=== PATIENT | female | born 1955 | race Caucasian/White ===

== ENCOUNTER → 2019-02-17 00:01 | Outpatient (RCR) | payer MEDICARE, SELFPAY | LOC: ONCRAD 02-03 07:40 | PROVIDERS: Family Provider Nurse Practitioner Family; Visit Provider Internal Medicine Hematology & Oncology | DX: Z51.12 Encounter for antineoplastic immunotherapy (principal); Z51.11 Encounter for antineoplastic chemotherapy; Z79.899 Other long term (current) drug therapy; C79.51 Secondary malignant neoplasm of bone; C78.01 Secondary malignant neoplasm of right lung; C50.512 Malignant neoplasm of lower-outer quadrant of left female breast; C78.02 Secondary malignant neoplasm of left lung; C78.7 Secondary malignant neoplasm of liver and intrahepatic bile duct; Z17.0 Estrogen receptor positive status [ER+]; Z90.13 Acquired absence of bilateral breasts and nipples; Z85.3 Personal history of malignant neoplasm of breast; Z92.3 Personal history of irradiation; Z92.23 Personal history of estrogen therapy | CPT/HCPCS: 36415; 80053 ×2; 85025 ×2; 96367 ×2; 96372; 96413 ×2; 96417 ×2; 99214 ×2; J0897; J1100 ×2; J1642 ×2; J2469 ×2; J7040 ×2; J7050 ×4; J9045 ×2; J9201 ×4; J9355 ×2 ==

== ENCOUNTER 2019-03-17 05:45 | Outpatient (RCR) | payer MEDICARE, SELFPAY ==
[2019-03-02 15:50] LABS: Basophils % 0.3 %; Eosinophils # 0.2 10^3/uL (0.0-0.8); Hematocrit 34.2 % (37.0-47.0); Hemoglobin 10.6 g/dL (11.5-15.3); Lymphocytes # 1.7 10^3/uL (0.8-4.8); Mean Corpuscular Hemoglobin 33.1 pg (28.0-34.0); Mean Corpuscular Volume 106.9 fL (81-99); Mean Platelet Volume 11.6 fL (7.4-10.4); Monocytes # 0.9 10^3/uL (0.2-0.9); Monocytes % 14.3 %; Neutrophils # 3.3 10^3/uL (1.8-7.7); Neutrophils % 54.1 %; Nucleated Red Blood Cells % 0 %; Platelet Count 153 10^3/cmm (130-400); Red Cell Distribution Width 16.2 % (12.1-15.1); White Blood Count 6.1 10^3/uL (4.0-10.0)
[2019-03-02 16:18] LABS: Alanine Aminotransferase 37 U/L (0-33); Albumin Level 4.4 g/dL (3.5-5.2); Alkaline Phosphatase 227 IU/L (35-105); Aspartate Amino Transferase 37 U/L (0-32); Blood Urea Nitrogen 9 mg/dL (8-23); Carbon Dioxide 26 mmol/L (22-29); Chloride 102 mmol/L (98-107); Globulin 2.8 g/dL (1.3-4.6); Glomerular Filtration Rate 84.8 mL/min (90-130); Sodium 141 mmol/L (136-145); Total Bilirubin 0.3 mg/dL (0.15-1.2); Total Protein 7.2 g/dL (6.6-8.7)
[2019-03-02 16:22] LABS: Calcium 10.3 mg/Dl (8.8-10.2)
[2019-03-02 16:25] LABS: Glucose 37 mg/dL (74-106)
[2019-03-03] MEDS: diphenhydrAMINE 25 mg Capsule PO (11:48)
[2019-03-03] MEDS: acetaminophen 325 mg Tablet 650 MG PO (11:48)
[2019-03-03] MEDS: sodium chloride 0.9% 250 ML IV (12:21)
[2019-03-03 13:32] LABS: Free T4 Free Thyroxine 1.02 ng/dL (0.82-1.77)
[2019-03-03 14:12] LABS: 25 Hydroxy Vitamin D 28 ng/mL (30-100)
--- NOTE | 2019-03-06 11:33 | ONC FU_ITS ---
Kerri Wolfe Patient Note Patient: Soledad Santamaria Unit #: [id number]: 1955 Dictated By: Liliana BernsteinDate of Visit: Mar 03, 2019 Onc MED Follow-Up/Prog Note Chief Complaint: Metastatic breast cancer History of Present Illness: Mrs. Santamaria is a 63-year-old female with history of left breast carcinoma with bone metastasis. She presented with an abnormal mammogram in 2010. She had apparently had detected an left-sided breast mass in late 2009. She was referred to Dr Gadiel Reed @ [facility] in [place], [place]. In April 2010, she underwent needle core biopsy of the left breast that did confirm invasive ductal carcinoma histological grade 2/3, ER+ KS+ and Her 2 [place] immunostain was 3+. She also had biopsy of a left axillary lymph node that was positive for invasive carcinoma with no lymphoid tissue identified. Her exam prior to chemo revealed a 3 cm mass in the extreme upper outer aspect of the left breast and multiple palpable enlarged lymph nodes-the largest was 2 cm and mobile.. Further workup included a breast MRI which did show biopsy proven malignancy in the left upper outer quadrant measuring 3.3 cm with associated axillary and subpectoral adenopathy. She had multiple satellite nodes with the largest measuring 7 cm. She did undergo MRI guided biopsy on June 08, 2010, which did report invasive cancer. She did have CT of the chest and a bone scan which did not show distant disease,. However, there was an enlarged lymph node in the subcutaneous tissues posterior to the left scapula and was biopsied on May 26, 2010 and was negative for malignancy. She under went neoadjuvant chemotherapy with weekly paclitaxel and Herceptin for 12 cycles from May 2010 to August of 2010 followed by FEC and Herceptin through October 2010. She completed 1 year of Herceptin in May 2011 during which time she was also taking an AI. She did have febrile neutropenia requiring admission in September 2010. She underwent bilateral mastectomies( for abnormal mammogram findings in the right breast) at [facility] in [facility] in November 2010. She did have post mastectomy radiation completed on 03/21/2011. She then underwent reconstruction with bilateral breast implants. Unfortunately in November 2011, the left implant became infected and had to be removed. During work up of the implant abnormality she has found to have a metastatic lesion in her left scapula. She did not have any problems until November of 2012 at which time she was having generalized bone pain, which she thought was a combination of Actonel and Anastrozole. The pain did not improve with stopping these medications. She was transitioned to single agent Tamoxifen. A bone scan revealed increased activity along the lateral margin of the left scapula suspicious of osseous metastatic disease when compared to the bone scan from November 2011. This lesion was biopsied on 12/01/2012 and revealed metastatic disease consistent with the breast primary. She did not have radiation at that time as she was not having significant pain. Mrs Santamaria was restaged and found to have diffuse pulmonary nodules and mediastinal lymphadenopathy and in November 2012, she was enrolled in a clinical trial with Herceptin. Perjeta and Letrozole. She had restaging in March 2014 that revealed slight progression of her pulmonary nodules which did not meet criteria for end point results of the clinical trial and was taken off the trial. Her bone scan was reported as stable. She transferred her care to [facility] in [place], [place] to the care of Dr Mehran Jacobson III in May 2014 due to the difficulty traveling to [facility]. The treatment of letrozole, Herceptin and Perjeta was continued until she disease progression and was changed to Kadcyla in February 2015 after restaging imaging revealed disease progression.And she could not tolerate and it was discontinued after 2 or 3 doses. INTERIM HISTORY: Mrs Santamaria was referred to us in October 2016 for followup at which time, Mrs Santamaria was having right upper back pain, left chest wall pain and right groin pain. She did have restaging with PET/CT on 11/03/2016. The PET/CT revealed multiple FGD avid osteolytic metastases in the left scapula, posterior left 9th rib, T10, T12 and the anterior right acetabulum. Multiple FDG avid metastatic pulmonary nodules represented by 1.9 cm nodule in the posterbasal segment of the right lower lobe with an SUV of 5 and a 1.7 cm nodule in the anterrobasal segment of the left lower lobe with an SUV of 5.1. No hepatic or adrenal metastases identified. Mrs Santamaria was referred to [facility] radiation oncology and underwent radiation to the right hip, left scapula, T10-T12 spine. Her pain resolved with the radiation, offered her palliative chemotherapy with Navelbine and Herceptin. She had agreed to a trial of the chemotherapy. Follow-up CT PET scan showed disease progression chemotherapy was discontinued and she was referred to radiation oncology for palliative radiation therapy. After this cycle of radiation therapy, she was started on lapatinib and Xeloda. She was tolerating it well but she was referred to radiation for C-spine metastases management. At that time her chemotherapy was put on hold. She developed right hip pain for which she received palliative radiation therapy to the 06/25/2017. The lapatinib and Xeloda was restarted but her follow-up tumor markers showed evidence of disease progression as the CA-27-29 gone up to 1346.70 on 08/20/2017 compared to 896.45 on 07/04/2017. Her chemotherapy with Xeloda and lapatinib was discontinued and decided to switch her to weekly Herceptin and Taxane , patient doesn't want take steroids so we recommended Herceptin and Abraxane combination. She did develop nausea vomiting abdominal pain with her last dose of Zometa and doesn't want to take Zometa anymore. We will switch her to Xgeva. There was delay in getting started with the Herceptin/Abraxane. She apparently had positive TB test which required workup and eventually was found to be a false positive. She began her first cycle of Herceptin and Abraxane on 10/09/2017.Last dose of Abraxane/Herceptin was given on 12/17/2017 and because of intolerance Abraxane was discontinued and last dose of Herceptin was given on 12/31/2017 Mrs Santamaria was seen by Dr. Ramirez, oncologist at [facility], for clinical trial and many clinical trials available but due to transportation and financial reasons, patient could not consider any of them. Palliative chemotherapy with carboplatin/gemcitabine/Herceptin or eribulin /Herceptin was recommended. Patient had bone scan and CT scan of chest abdomen done at [facility] which showed widespread metastatic disease. She began chemotherapy with weekly carboplatin, gemcitabine and trastuzumab on 04/15/2018 Follow-up CT PET scan done on 07/05/2018 showed improvement in hepatic metastatic disease since April 2017 study Mixed response to multiple bilateral pulmonary lesion Reactive marrow with splenic activity Osseous metastatic disease seen on April 2017 study is sclerotic and FDG negative CT scan of chest abdomen pelvis done on 07/30/2018 1 patient was admitted to hospital with abdominal pain and diagnosed with diverticulitis treated successfully with antibiotics. Showed extensive pulmonary metastases and hepatic metastases and bone metastases, stable when compared with CT PET scan done in June 2018. She has continued with treatment with carboplatin/gemcitabine/Herceptin. She is tolerated it well. Follow-up CT PET scan done on 10/25/2018 showed mild improvement in hepatic, pulmonary and osseous metastatic disease. She has continued with chemotherapy with weekly Carboplatin, gemcitabine and Herceptin. She is receiving Neupogen support on and Saturday after her treatment on Saturday. She is getting the Neupogen at [place], [place]. She is tolerating this plan well. She continues to have exertional shortness of breath but states it is no worse than what is has been but it is no better either. She denies any angina type pain but thinks she may have palpatations once in a while with the shortness of breath. She denies orthopnea. She denies any cough. She does have a very strong family history of CAD-both parents with her father's first CT in his 30's and both brothers have CAD. She has never had a diagnosis of CAD. She did have an echocardiogram on 11/07/2018 that reported EF of 60%-unchanged from previous echo. She reported she had a bug bite on her right breast reconstruction site around where the nipple should be. She states it presented as a big blister then it popped and is now a scabbed area but no drainage. She has been applying triple antibotic ointment to it and states she thinks it is healing well. She was referred to plastic surgery at [facility] and ulimately underwent right breast implant removal in December 2018, as per patient and there was no evidence of breast cancer in the specimen. Her chemotherapy was delayed because of dental procedure from 12/30/2018 to 02/04/2019. She resumed treatment on 02/04/2019. Mrs Santamaria is here today for follow-up. She is due for cycle 10 carboplatin gemcitabine trastuzumab. She will also be due for denosumab. Her last injection was 02/04/2019. We will see if she is close enough to have that while she is here today. She denies any new concerns. She feels she is healed well from her implant removal. She denies any new pain. She has had no further rashes. She denies any nausea or vomiting. She states she is eating good and feels pretty good overall. She denies any fever or chills. She states she has having some intermittent fatigue that kind of comes and goes. She states is not her normal fatigue and it does keep her from doing some of her ADLs. She recovers well with rest and is able to go back and do her chores just fine. She states this is something a little new for her. She states she thinks she is doing pretty good. Her ECOG is 1. Past Medical History: Cancer (breast (left)) in 2008 Past Surgical History: Cholecystectomy Colonoscopy Hysterectomy Nisson wrap Right breast implant removed Tonsillectomy Flu vaccine in 2018 - Given in right deltoid/lc Flucevax in 2017 - right deltoid Portacatheter in 2017 Mastectomy in 2008 - bilateral October of 2015. She had an unknown rupture and repair Allergies: Codeine Sulfate Medications: Claritin 1 Tablet (of 10 mg) Oral daily Magnesium 1 Tablet Oral daily PRN Multivitamin Adults 1 Tablet Oral daily PRN Potassium 1 Tablet (of 99 mg) Oral daily PRN Prevacid 1 Capsule (of 30 mg) Capsule Delayed Release Oral daily Vitamin C 1 Tablet Oral daily PRN Family History: Ms. Santamaria's mother at age 89: heart attack. Ms. Santamaria's father is alive. Social History: Ms. Santamaria is and she is a disabled. Ms. Santamaria quit smoking 13 years ago but had smoked 1.0 pack/day for 33 years. She has no history of drinking. Ms. Santamaria reports the following support systems: lives with spouse, significant other, family, or friends, lives in own house, supportive family/friends willing to assist with needs, and adequate transportation available for expected visits. Her diet consists of regular meals. She indicates her activity level as: daily activities. Review Of Symptoms: Constitutional Denies fevers, chills, night sweats, or weight loss. States she feels pretty good but is having some intermittent fatigue that is a little new for her. Allergic/Immunologic No reactions. Eyes Denies significant visual changes. No diplopia. No amaurosis. ENMT Denies changes in hearing, sore throat, mouth sores, difficulty or changes in swallowing ability, and/or sinus drainage. Endocrine No diabetes, thyroid disease or hormone replacement. Denies hot flashes or night sweats. Hematologic/Lymphatic Denies easy bruising or bleeding. The patient denies any tender or palpable lymph nodes. Breasts Right breast reconstruction/nipple site has an insect bite that is healing. Respiratory dyspnea on exertion-short of breath-stable. Denies chest pain, cough or hemoptysis. Denies orthopnea. Cardiovascular Denies anginal chest pain, palpitations or orthopnea. Gastrointestinal Denies current nausea, vomiting, diarrhea, GI bleeding. She has intermittent constipation but has a regimen that works for her. Genitourinary (F) No hematuria, hesitancy, incontinence, vaginal bleeding, discharge or other problems with urination. Musculoskeletal Denies joint pain, swelling or redness. No decreased range of motion. Still having muscle cramps all over at times but not everyday-unchanged from last visit. Integumentary Denies chronic rashes, inflammation, ulcerations or skin changes. Stable peripheral neuropathy. Neurologic Denies headache, blurred vision, and no areas of focal weakness or numbness. Normal gait. No sensory problems. Psychiatric Denies insomnia, depression, estelita or mood swings. Vital Signs: Performed on Mar 03, 2019 10:13 Height - 67.00 in Weight - 149.2 lbs (LOW) BSA - 1.79 sq.m BMI - 23.37 Temperature - 97.5 F (LOW) Pulse - 88 /min Respiration - 16 /min BP - 127/71 mm(hg) O2 Sat - 96 % Pain - 0 Fatigue - 7,1 - No physically strenuous activity, but ambulatory and able to carry out light or sedentary work (e.g. office work, light house work). (ECOG) Physical Examination: Constitutional Alert, oriented, no acute distress. Skin pink, warm and dry. She is accompanied by her . Head Normocephalic; atraumatic. Eyes Conjunctivae and sclerae are clear and without icterus. Pupils are reactive and equal. ENMT No mouth sores or yeast. Neck Supple without masses or thyromegaly. No jugular venous distension. Hematologic/Lymphatic No petechiae or purpura. Respiratory Lungs are diminished bilaterally to auscultation without rhonchi or wheezing. Cardiovascular Regular rate and rhythm of heart without murmurs,clicks, gallops or rubs. Back/Spine Non-tender to palpation. Extremities No visible deformities, no cyanosis, clubbing or edema. Musculoskeletal No tenderness or swelling, normal range of motion without obvious weakness. Integumentary No rashes or lesions. Neurologic No sensory or motor deficits, normal cerebellar function, normal gait. Psychiatric Alert and oriented times three. Coherent speech. Verbalizes understanding of our discussions today. Laboratory:Test performed on Mar 02, 2019 10:45 Glucose 37 mg/dL Vitamin D (25-Hydroxy) 28 ng/mL BUN 9 mg/dL Creatinine 0.7 mg/dL Cr Clearance (Est) 90.94 mL/min Sodium 141 mmol/L Potassium 4.0 mmol/L Chloride 102 mmol/L CO2 26 mmol/L Calcium 10.3 mg/dL Protein, Total 7.2 g/dL Albumin 4.4 g/dL Globulin 2.8 g/dL Bilirubin, Total 0.3 mg/dL Alkaline Phosphatase 227 IU/L AST (SGOT) 37 IU/L ALT (SGPT) 37 IU/L WBC 6.1 10 3/uL RBC 3.2 10^6/uL HGB 10.6 g/dL HCT 34.2 % MCV 106.9 fL MCH 33.1 pg MCHC 31.0 g/dL RDW 16.2 % Platelet Count 153 10^3/uL MPV 11.6 fL Neutrophils 3.3 10 3/uL Neutrophil % 54.1 % Lymphocyte % 28 % Monocyte % 14.3 % Basophils % 0.3 % Test performed on Feb 16, 2019 10:55 Anion Gap 17.7 eGFR 125.0 mL/min Lymphocytes 1.4 10 3/uL Monocytes 0.6 10 3/uL Eosinophils 0.2 10 3/uL Basophils 0.0 10 3/uL Eosinophil % 4.4 % Test performed on Nov 10, 2018 07:00 Ferritin 191.0 ng/ml Folate, Serum 10.5 ng/mL Iron 74 ug/dL Vitamin B12 1423 pg/mL % Iron Saturation 22.4 % Test performed on Sep 16, 2018 08:16 Manual Lymphocytes 31 % Manual Monocytes 32 % Manual Eosinophils 5 % Manual Basophils 2 % Test performed on Sep 08, 2018 08:16 Platelet Estimate Decreased Platelet Morphology Normal Impression: History of left breast cancer with metastases to left scapula status post bilateral mastectomy and left axillary lymph node dissection followed by radiation therapy to left chest wall and axilla in 2008 in [facility] in [facility] status post 1 year of Herceptin and paclitaxel and Arimidex for some time status post radiation therapy to left scapula biopsy-proven metastases Medical record obtained from [facility] [place], [place] and ER/[place] positive HER-2/oneida overexpression positive it shows #1 presentation with abnormal screening mammogram in 2010. Patient underwent neoadjuvant chemotherapy with weekly paclitaxel and Herceptin for 12 cycle from May Treated with neoadjuvant chemotherapy FEC plus Herceptin from August 2010 through October 2010 In November 2010 she undergoes bilateral simple mastectomy with pathology demonstrating pT2 N2 disease Patient completed 1 year of adjuvant Herceptin therapy with adjuvant aromatase inhibitor In October 2011 patient transitioned to single agent tamoxifen due to poor tolerance of aromatase inhibitor therapy next In October 2012 patient presented with left scapular pain imaging demonstrates abnormal bones lesion with biopsy notable for ER/KS positive HER-2/oneida overexpressing breast cancer, staging evaluation demonstrated bilateral pulmonary nodules with mediastinal lymphadenopathy On 12/16/2012 patient initiates letrozole plus Herceptin plus PERJETA on clinical trial On 02/22/2015 patient demonstrates subjective progression of disease within lungs On 02/25/2015 initiated on KADCYLA History of metastatic disease status post chemotherapy with different agents on multiple occasions most recent hormonal agent was letrozole 2.5 mg Elevated tumor [place] [address] scan of chest abdomen pelvis done on 10/10/2016 showed multiple bilateral pulmonary nodules consistent with metastatic disease multiple lytic lesion including posterior aspect of T12 vertebral body related dissection of much of right side of T10 vertebra and a large lytic lesion involving the roof of the right acetabulum and right iliac wing and focus of due to dissection lesion in right ischium Stable tiny low-attenuation abnormalities within the liver most likely consistent with multiple tiny cysts Pulmonary emphysema 8 ON 09/24/2016 CA 15.3 342.6 CA 27- 29 493.59 Upper mid back pain and right hip pain due to bone metastases questionable cord compression. She did have restaging with PET/CT on 11/03/2016. The PET/CT revealed multiple FGD avid osteolytic metastases in the left scapula, posterior left 9th rib, T10, T12 and the anterior right acetabulum. Multiple FDG avid metastatic pulmonary nodules represented by 1.9 cm nodule in the posterbasal segment of the right lower lobe with an SUV of 5 and a 1.7 cm nodule in the anterrobasal segment of the left lower lobe with an SUV of 5.1. No hepatic or adrenal metastases identified. Mrs Santamaria was referred to [facility] radiation oncology and underwent radiation to the right hip, left scapula, T10-T12 spine. Her pain resolved with the radiation. offered her palliative chemotherapy with Navelbine and Herceptin. She has agreed to a trial of the chemotherapy. CT scan of the chest August 2017 reported disease progression in the chest and evidence of possible hepatic involvement as well as possible metastatic site involving the left 12th rib. PET/CT scan done on 03/02/2017 showed multiple FDG avid metastatic pulmonary nodules represented by 1.9 cm nodule in the posterior basal segment of right lower lobe with SUV 9.6 compared to 5 on prior exam and a 1.7 cm nodule in the anterior basal segment of left lower lobe with SUV of 4.9 compared to 4.1 on prior exam. There were multiple new hepatic metastatic lesions represented by 1.7 cm nodule with SUV of 5.4 in the anterior superior segment right upper lobe. The PET/CT also reported bone metastasis the left anterior superior iliac spine posteriorly right sacroiliac and T10 T12 right acetabulum, left scapula and posterior left eighth rib. MRI scan of C-spine done on 02/28/2017 showed metastatic lesion of C2 vertebral body. Additional foci of metastatic disease may involve C6 and T1 vertebral bodies multiple disc bulging and spondylosis at C5/C6 and C6/C7 with mild anterior impingement Episode of rectal bleed/abdominal pain probably due to diverticulitis/diverticular bleed CT scan of chest abdomen pelvis done on 03/31/2017 showed pulmonary metastatic disease with variable size of some of the lesion since 10/30/2016 some lesions are smaller and other are larger hepatic and bone metastatic disease similar to the prior exam CT PET scan done on 04/27/2017 showed osseous lesion in left half of C1, and right T1 transverse process and left T1 pedicle, the L1 vertebral body, and L2 vertebral body shows no changes. However, pelvic metastatic disease has worsened with SUV 8.2 compared to 4.1 previously but she is status post radiation therapy to her pelvic bones., Multifocal hepatic metastatic disease is progressed , with SUV 9.8 compared to 5.4 earlier, bilateral hypermetabolic pulmonary nodules are unchanged and right hilar malignant node demonstrated progression Started on lapatinib and Xeloda on 06/08/2017 then it was placed on hold due to radiation therapy to left hip pain. Left posterior hip pain due to bone metastases status post radiation to right hip. Status post radiation therapy to C-spine could complete 9 out of 12 recommended doses because of severe radiation-induced pharyngitis , finished on 06/25/2017 Status palliative post radiation to hip, finished on 06/26/2007 Tumor marker CA-27-29 gone up to 1346.70 on 08/20/2017 from 896.45 on 07/04/2017 Lapatinib and Xeloda discontinued on 08/26/2017 and her treatment plan changed to weekly Herceptin and Taxane 3 weeks on and 1 week off with followup PET/CT after the third cycle. She had GI issues with Zometa ( an episode of nausea vomiting and abdominal pain) so she refuses to repeat the Zometa. She will be offered Xgeva 120 mg every month instead of the Zometa. She began her first cycle of Abraxane and Herceptin on 10/09/2017.Till 12/17/2017 at that time Abraxane was discontinued because of intolerance and last dose of Herceptin was given on 12/31/2017 and because of progressive weakness and fatigue this was also discontinued Patient was referred to [facility] she was seen by Dr. Ramirez on 03/31/2018, many clinical trials are available but due to transportation and financial reason patient could not consider any of them. So palliative chemotherapy with erbulin /Herceptin or carboplatin/gemcitabine/Herceptin was recommended. She did discontinue letrozole on 04/07/2018 and it was recommended that she start on weekly carboplatin AUC 2/gemcitabine 1000 mg/m2/Herceptin day 1, 8 and 15 every 28 days. Along with monthly Xgeva. She began her first cycle on 04/15/2018 .Follow-up CT PET scan done on 07/05/2018 showed hepatic metastatic disease has improved when compared with CT PET scan done in April 2017 and index lesion in the right hepatic dome has now significant central necrosis. There was a mixed response to multiple lung nodules, a left upper lobe nodules is unchanged in size at 1.6 cm but has SUV 3.8 compared to 5.6 before similar improvement is present in the posterior right lower lobe nodule and left lung base nodules. However there are new lesions in the right middle and medial right lobes, the 2 new lesions in the medial right lobe have SUV of 289 and right middle lobe measures 2.6 cm with SUV of 6.8. Multiple osseous lesion seen previously were sclerotic and FDG negative. Suspicious uptake is identified in left femoral neck and proximal right femur and L2. Mrs Santamaria continues with Carboplatin, gemcitabine and Herceptin and monthly Xgeva. She does require intermittent support with growth factors to keep her blood counts up in order to stay on the treatment plan. Follow-up CT PET scan done on 10/25/2018 showed multiple hepatic lesions are seen on prior studies on 07/05/2018 or minimally improved in size and now with improved SUV. Mild improvement in bilateral lung nodules both in size and SUV. Mild improvement is noted in multifocal osseous metastatic disease. Follow-up echocardiogram done on 11/07/2018 showed ejection fraction around 60%. She continues with weekly Carboplatin/gemcitabine and Herceptin. Plan: 1. Proceed with cycle 10 carboplatin gemcitabine trastuzumab. 2. We will proceed with denosumab if timing is appropriate today if not will administer with next treatment in 2 weeks. Labs from March 02, 2019 were reviewed in detail and discussed with and Mrs. Santamaria and a copy was given to them. WBC 6.1, hemoglobin 10.6, platelets 153,000 and her ANC is 3000. Potassium 4.0 creatinine 0.7 LFTs are normal alk phos is improved at 227. 4. We will plan to see her back in 2 weeks at which time she will be due for cycle 10-day 15 treatment. She will require CBC CMP, [id number] at that time. 5. I did request a TSH and free T4 be added to her blood in lab today as well as a vitamin D level for myalgia and the TSH is to evaluate persistent fatigue. 6. Mrs. Santamaria instructed to contact us in the interim should questions or problems arise. 7. Her last echocardiogram was November 07, 2018 with ejection fraction around 60%. She is due for follow-up limited echocardiogram for evaluation of her LV function due to the trastuzumab. We will try to arrange this before her next visit. Signed By: Liliana Bernstein-SANJANA, AOCNP Kortney Pitts MD <<Signature on File>>
--- NOTE | 2019-03-13 12:43 | USCV_ITS ---
Soledad Santamaria Age: 63 Gender: F : 1955 Exam Date: 03/13/2019 13:00 Ordering Phys: Michelle Wolfe NP Technologist: Tran Bailey Exam Location: [facility] [place] Indication: FU HERCEPTIN DOSING FOR BREAST CANCER. PT NOW SOB BP: / HR: 78 Rhythm: Sinus Technical Quality: Adequate MEASUREMENTS (Male / Female) Normal Values 2D ECHO LV Diastolic Diameter PLAX 3.4 cm 4.2 - 5.9 / 3.9 - 5.3 cm LV Systolic Diameter PLAX 2.9 cm LV Chamber Size 3.6 cm IVS Diastolic Thickness 0.8 cm 0.6 - 1.0 / 0.6 - 0.9 cm IVS Systolic Thickness 1.1 cm LVPW Diastolic Thickness 1.0 cm 0.6 - 1.0 / 0.6 - 0.9 cm LVPW Systolic Thickness 1.1 cm RV Chamber Size 2.4 cm LVOT Diameter 2.0 cm LV Ejection Fraction 2D Teich 30.8 % LV Ejection Fraction MOD 2C 53.9 % LV Ejection Fraction 2C AL 55.0 % LA Diameter 3.5 cm LA Width 2.6 cm LA Height 3.3 cm RA Width 2.7 cm RA Height 3.0 cm Aorta at Sinotubular Diameter 3.0 cm M-MODE LV Diastolic Diameter MM 5.0 cm 4.2 - 5.9 / 3.9 - 5.3 cm LV Systolic Diameter MM 3.1 cm LV Ejection Fraction MM Teich 68.2 % IVS Diastolic Thickness MM 0.9 cm 0.6 - 1.0 / 0.6 - 0.9 cm IVS Systolic Thickness MM 1.2 cm LVPW Diastolic Thickness MM 0.8 cm 0.6 - 1.0 / 0.6 - 0.9 cm LVPW Systolic Thickness MM 1.5 cm RV Diastolic Diameter MM 0.9 cm Aortic Annulus Diameter 3.1 cm LA Ao Ratio MM 1.1 MV E Point Septal Separation 0.7 cm FINDINGS Left Ventricle Normal left ventricular cavity size. Normal left ventricular systolic function. No regional wall motion abnormalities. Left ventricular ejection fraction is estimated at 68 %. Right Ventricle The right ventricle is normal in size and function. RVSP could not be calculated due to incomplete tricuspid regurgitation velocity profile. Right Atrium The right atrium is normal in size. Left Atrium The left atrium is normal in size. Mitral Valve Structurally normal mitral valve without significant stenosis or prolapse. There is no mitral regurgitation. Aortic Valve Structurally normal aortic valve without significant sclerosis or stenosis. There is no aortic regurgitation. Tricuspid Valve Structurally normal tricuspid valve without significant stenosis or regurgitation. Pulmonic Valve Structurally normal pulmonic valve without significant stenosis. There is no pulmonic regurgitation. Pericardium Normal pericardium without effusion. Aorta Normal ascending aorta dimension. CONCLUSIONS 1-Normal left ventricular cavity size. Normal left ventricular systolic function. No regional wall motion abnormalities. Left ventricular ejection fraction is estimated at 68 %. 2-There is no pericardial effusion. 3-No significant valve abnormalities. 4-Right atrial pressure is around 5 mm of mercury. 5-No significant change since the prior echocardiogram study of 11/07/2018. Yudi Marinelli MD (Electronically Signed) Final Date: 13 March 2019 14:26 S
[2019-03-16 15:37] LABS: Basophils % 0.2 %; Eosinophils # 0.1 10^3/uL (0.0-0.8); Eosinophils % 2.5 %; Hematocrit 30.2 % (37.0-47.0); Hemoglobin 9.4 g/dL (11.5-15.3); Lymphocytes # 1.7 10^3/uL (0.8-4.8); Lymphocytes % 32.7 %; Mean Corpuscular HGB Conc 31.1 g/dL (30.0-36.0); Mean Corpuscular Hemoglobin 32.2 pg (28.0-34.0); Mean Corpuscular Volume 103.4 fL (81-99); Mean Platelet Volume 10.1 fL (7.4-10.4); Monocytes # 0.7 10^3/uL (0.2-0.9); Monocytes % 13.6 %; Neutrophils # 2.6 10^3/uL (1.8-7.7); Neutrophils % 50.6 %; Nucleated Red Blood Cells % 0 %; Platelet Count 183 10^3/cmm (130-400); Red Blood Count 2.92 10^6/uL (4.1-5.3); Red Cell Distribution Width 16.9 % (12.1-15.1); White Blood Count 5.1 10^3/uL (4.0-10.0)
[2019-03-16 15:39] LABS: Alanine Aminotransferase 30 U/L (0-33); Albumin Level 4.2 g/dL (3.5-5.2); Alkaline Phosphatase 204 IU/L (35-105); Anion Gap 16.5 (5-19); Aspartate Amino Transferase 37 U/L (0-32); Blood Urea Nitrogen 12 mg/dL (8-23); Calcium 9.9 mg/dL (8.5-10.5); Carbon Dioxide 26 mmol/L (22-29); Chloride 102 mmol/L (98-107); Glomerular Filtration Rate 72.7 mL/min (90-130); Glucose 93 mg/dL (74-106); Potassium 4.5 mmol/L (3.5-5.1); Sodium 140 mmol/L (136-145); Total Bilirubin 0.3 mg/dL (0.15-1.2); Total Protein 7.2 g/dL (6.6-8.7)
[2019-03-17] MEDS: sodium chloride 0.9% 250 ML 75 ML IV (11:15)
[2019-03-17] MEDS: acetaminophen 325 mg Tablet 650 MG PO (11:15)
[2019-03-17] MEDS: diphenhydrAMINE 25 mg Capsule PO (11:16)
[2019-03-17] MEDS: denosumab 120 mg SDV SUBCUT (13:45)
--- NOTE | 2019-03-17 16:50 | ONC FU_ITS ---
Dr. Pitts follow up note Patient: Soledad Santamaria Unit #: [id number]: 1955 Dicatated By: Kortney Pitts M.D.Date of Visit:Mar 17, 2019 Onc Med Follow-up/Prog Note History of Present Illness: Mrs. Santamaria is a 63-year-old female with history of left breast carcinoma with bone metastasis. She presented with an abnormal mammogram in 2010. She had apparently had detected an left-sided breast mass in late 2009. She was referred to Dr Gadiel Reed @ [facility] in [place], [place]. In April 2010, she underwent needle core biopsy of the left breast that did confirm invasive ductal carcinoma histological grade 2/3, ER+ NM+ and Her 2 Oneida immunostain was 3+. She also had biopsy of a left axillary lymph node that was positive for invasive carcinoma with no lymphoid tissue identified. Her exam prior to chemo revealed a 3 cm mass in the extreme upper outer aspect of the left breast and multiple palpable enlarged lymph nodes-the largest was 2 cm and mobile.. Further workup included a breast MRI which did show biopsy proven malignancy in the left upper outer quadrant measuring 3.3 cm with associated axillary and subpectoral adenopathy. She had multiple satellite nodes with the largest measuring 7 cm. She did undergo MRI guided biopsy on June 08, 2010, which did report invasive cancer. She did have CT of the chest and a bone scan which did not show distant disease,. However, there was an enlarged lymph node in the subcutaneous tissues posterior to the left scapula and was biopsied on May 26, 2010 and was negative for malignancy. She under went neoadjuvant chemotherapy with weekly paclitaxel and Herceptin for 12 cycles from May 2010 to August of 2010 followed by FEC and Herceptin through October 2010. She completed 1 year of Herceptin in May 2011 during which time she was also taking an AI. She did have febrile neutropenia requiring admission in September 2010. She underwent bilateral mastectomies( for abnormal mammogram findings in the right breast) at [facility] in [facility] in November 2010. She did have post mastectomy radiation completed on 03/21/2011. She then underwent reconstruction with bilateral breast implants. Unfortunately in November 2011, the left implant became infected and had to be removed. During work up of the implant abnormality she has found to have a metastatic lesion in her left scapula. She did not have any problems until November of 2012 at which time she was having generalized bone pain, which she thought was a combination of Actonel and Anastrozole. The pain did not improve with stopping these medications. She was transitioned to single agent Tamoxifen. A bone scan revealed increased activity along the lateral margin of the left scapula suspicious of osseous metastatic disease when compared to the bone scan from November 2011. This lesion was biopsied on 12/01/2012 and revealed metastatic disease consistent with the breast primary. She did not have radiation at that time as she was not having significant pain. Mrs Santamaria was restaged and found to have diffuse pulmonary nodules and mediastinal lymphadenopathy and in November 2012, she was enrolled in a clinical trial with Herceptin. Perjeta and Letrozole. She had restaging in March 2014 that revealed slight progression of her pulmonary nodules which did not meet criteria for end point results of the clinical trial and was taken off the trial. Her bone scan was reported as stable. She transferred her care to [facility] in [place], [place] to the care of Dr Mehran Jacobson III in May 2014 due to the difficulty traveling to [facility]. The treatment of letrozole, Herceptin and Perjeta was continued until she disease progression and was changed to Kadcyla in February 2015 after restaging imaging revealed disease progression.And she could not tolerate and it was discontinued after 2 or 3 doses. INTERIM HISTORY: Mrs Santamaria was referred to us in October 2016 for followup at which time, Mrs Santamaria was having right upper back pain, left chest wall pain and right groin pain. She did have restaging with PET/CT on 11/03/2016. The PET/CT revealed multiple FGD avid osteolytic metastases in the left scapula, posterior left 9th rib, T10, T12 and the anterior right acetabulum. Multiple FDG avid metastatic pulmonary nodules represented by 1.9 cm nodule in the posterbasal segment of the right lower lobe with an SUV of 5 and a 1.7 cm nodule in the anterrobasal segment of the left lower lobe with an SUV of 5.1. No hepatic or adrenal metastases identified. Mrs Santamaria was referred to [facility] radiation oncology and underwent radiation to the right hip, left scapula, T10-T12 spine. Her pain resolved with the radiation, offered her palliative chemotherapy with Navelbine and Herceptin. She had agreed to a trial of the chemotherapy. Follow-up CT PET scan showed disease progression chemotherapy was discontinued and she was referred to radiation oncology for palliative radiation therapy. After this cycle of radiation therapy, she was started on lapatinib and Xeloda. She was tolerating it well but she was referred to radiation for C-spine metastases management. At that time her chemotherapy was put on hold. She developed right hip pain for which she received palliative radiation therapy to the 06/25/2017. The lapatinib and Xeloda was restarted but her follow-up tumor markers showed evidence of disease progression as the CA-27-29 gone up to 1346.70 on 08/20/2017 compared to 896.45 on 07/04/2017. Her chemotherapy with Xeloda and lapatinib was discontinued and decided to switch her to weekly Herceptin and Taxane , patient doesn't want take steroids so we recommended Herceptin and Abraxane combination. She did develop nausea vomiting abdominal pain with her last dose of Zometa and doesn't want to take Zometa anymore. We will switch her to Xgeva. There was delay in getting started with the Herceptin/Abraxane. She apparently had positive TB test which required workup and eventually was found to be a false positive. She began her first cycle of Herceptin and Abraxane on 10/09/2017.Last dose of Abraxane/Herceptin was given on 12/17/2017 and because of intolerance Abraxane was discontinued and last dose of Herceptin was given on 12/31/2017 Mrs Santamaria was seen by Dr. Ramirez, oncologist at [facility], for clinical trial and many clinical trials available but due to transportation and financial reasons, patient could not consider any of them. Palliative chemotherapy with carboplatin/gemcitabine/Herceptin or eribulin /Herceptin was recommended. Patient had bone scan and CT scan of chest abdomen done at [facility] which showed widespread metastatic disease. She began chemotherapy with weekly carboplatin, gemcitabine and trastuzumab on 04/15/2018 Follow-up CT PET scan done on 07/05/2018 showed improvement in hepatic metastatic disease since April 2017 study Mixed response to multiple bilateral pulmonary lesion Reactive marrow with splenic activity Osseous metastatic disease seen on April 2017 study is sclerotic and FDG negative CT scan of chest abdomen pelvis done on 07/30/2018 1 patient was admitted to hospital with abdominal pain and diagnosed with diverticulitis treated successfully with antibiotics. Showed extensive pulmonary metastases and hepatic metastases and bone metastases, stable when compared with CT PET scan done in June 2018. She has continued with treatment with carboplatin/gemcitabine/Herceptin. She is tolerated it well. Follow-up CT PET scan done on 10/25/2018 showed mild improvement in hepatic, pulmonary and osseous metastatic disease. She has continued with chemotherapy with weekly Carboplatin, gemcitabine and Herceptin. She is receiving Neupogen support on and Saturday after her treatment on Saturday. She is getting the Neupogen at [place], [place]. She is tolerating this plan well. She continues to have exertional shortness of breath but states it is no worse than what is has been but it is no better either. She denies any angina type pain but thinks she may have palpatations once in a while with the shortness of breath. She denies orthopnea. She denies any cough. She does have a very strong family history of CAD-both parents with her father's first [place] in his 30's and both brothers have CAD. She has never had a diagnosis of CAD. She did have an echocardiogram on 11/07/2018 that reported EF of 60%-unchanged from previous echo. She reported she had a bug bite on her right breast reconstruction site around where the nipple should be. She states it presented as a big blister then it popped and is now a scabbed area but no drainage. She has been applying triple antibotic ointment to it and states she thinks it is healing well. She was referred to plastic surgery at [facility] and ulimately underwent right breast implant removal in December 2018, as per patient and there was no evidence of breast cancer in the specimen. Her chemotherapy was delayed because of dental procedure from 12/30/2018 to 02/04/2019. She resumed treatment on 02/04/2019 Echocardiogram done on 03/09/2019 showed Ejection fraction was 68% .Came for follow-up, denies any specific complaints, except generalized weakness and fatigue otherwise no fever or chills, no nausea or vomiting, no peripheral numbness, no jaundice, no headaches blurred vision double vision, tolerating palliative chemotherapy with Herceptin/carboplatin/gemcitabine well. Medications: Claritin 1 Tablet (of 10 mg) Oral daily, Magnesium 1 Tablet Oral daily PRN, Multivitamin Adults 1 Tablet Oral daily PRN, Potassium 1 Tablet (of 99 mg) Oral daily PRN, Prevacid 1 Capsule (of 30 mg) Capsule Delayed Release Oral daily, Vitamin C 1 Tablet Oral daily PRN Allergies: Codeine Sulfate Review of Systems: Constitutional - Appetite is fair, weight is stable. Energy level is poor today, ENMT - No sinus congestion/drainage. No mouth sores. No sore throat or difficulty swallowing, Hematologic/Lymphatic - No abnormal bruising or bleeding, Respiratory - No dyspnea on exertion, chest pain, cough or hemoptysis, Cardiovascular - No anginal chest pain, palpitations or orthopnea, Gastrointestinal - No nausea, vomiting, diarrhea, GI bleeding, or constipation. No change in bowel habits, no heartburn or early satiety, Genitourinary (F) - No hematuria, dysuria, increased frequency, urgency, hesitancy or incontinence, Musculoskeletal - Positive for back pain, Neurologic - No dizziness, or numbness/tingling, Psychiatric - No anxiety or depression. No insomnia. Vital Signs: Performed on Mar 17, 2019 14:00 Height - 67.00 in Temperature - 98 F (LOW) Pulse - 82 /min Respiration - 18 /min BP - 124/77 mm(hg) O2 Sat - 94 % (LOW) Pain - 0 Fatigue - 0 Performed on Mar 17, 2019 10:23 Height - 67.00 in Weight - 152.8 lbs (HIGH) BSA - 1.80 sq.m BMI - 23.93 Temperature - 98.0 F (LOW) Pulse - 92 /min Respiration - 24 /min BP - 134/73 mm(hg) O2 Sat - 92 % (LOW) Pain - 7 Performance Status: 1 - No physically strenuous activity, but ambulatory and able to carry out light or sedentary work (e.g. office work, light house work). (ECOG) Physical Examination: Respiratory - Lungs are clear to auscultation without rhonchi or wheezing, Cardiovascular - Regular rate and rhythm of heart, Extremities - no edema. Lab/Imaging: Test performed on Mar 02, 2019 10:45 Glucose 37 mg/dL Vitamin D (25-Hydroxy) 28 ng/mL BUN 9 mg/dL Creatinine 0.7 mg/dL Cr Clearance (Est) 90.94 mL/min Sodium 141 mmol/L Potassium 4.0 mmol/L Chloride 102 mmol/L CO2 26 mmol/L Calcium 10.3 mg/dL Protein, Total 7.2 g/dL Albumin 4.4 g/dL Globulin 2.8 g/dL Bilirubin, Total 0.3 mg/dL Alkaline Phosphatase 227 IU/L AST (SGOT) 37 IU/L ALT (SGPT) 37 IU/L WBC 6.1 10 3/uL RBC 3.2 10^6/uL HGB 10.6 g/dL HCT 34.2 % MCV 106.9 fL MCH 33.1 pg MCHC 31.0 g/dL RDW 16.2 % Platelet Count 153 10^3/uL MPV 11.6 fL Neutrophils 3.3 10 3/uL Neutrophil % 54.1 % Lymphocyte % 28 % Monocyte % 14.3 % Basophils % 0.3 % Test performed on Feb 16, 2019 10:55 Anion Gap 17.7 eGFR 125.0 mL/min Lymphocytes 1.4 10 3/uL Monocytes 0.6 10 3/uL Eosinophils 0.2 10 3/uL Basophils 0.0 10 3/uL Eosinophil % 4.4 % Test performed on Nov 10, 2018 07:00 Ferritin 191.0 ng/ml Folate, Serum 10.5 ng/mL Iron 74 ug/dL Vitamin B12 1423 pg/mL % Iron Saturation 22.4 % Impression: History of left breast cancer with metastases to left scapula status post bilateral mastectomy and left axillary lymph node dissection followed by radiation therapy to left chest wall and axilla in 2008 in [facility] in [facility] status post 1 year of Herceptin and paclitaxel and Arimidex for some time status post radiation therapy to left scapula biopsy-proven metastases Medical record obtained from [facility] [place] and ER/NM positive HER-2/oneida overexpression positive it shows #1 presentation with abnormal screening mammogram in 2010. Patient underwent neoadjuvant chemotherapy with weekly paclitaxel and Herceptin for 12 cycle from May Treated with neoadjuvant chemotherapy FEC plus Herceptin from August 2010 through October 2010 In November 2010 she undergoes bilateral simple mastectomy with pathology demonstrating pT2 N2 disease Patient completed 1 year of adjuvant Herceptin therapy with adjuvant aromatase inhibitor In October 2011 patient transitioned to single agent tamoxifen due to poor tolerance of aromatase inhibitor therapy next In October 2012 patient presented with left scapular pain imaging demonstrates abnormal bones lesion with biopsy notable for ER/NM positive HER-2/oneida overexpressing breast cancer, staging evaluation demonstrated bilateral pulmonary nodules with mediastinal lymphadenopathy On 12/16/2012 patient initiates letrozole plus Herceptin plus PERJETA on clinical trial On 02/22/2015 patient demonstrates subjective progression of disease within lungs On 02/25/2015 initiated on KADCYLA History of metastatic disease status post chemotherapy with different agents on multiple occasions most recent hormonal agent was letrozole 2.5 mg Elevated tumor markers CA [address] scan of chest abdomen pelvis done on 10/10/2016 showed multiple bilateral pulmonary nodules consistent with metastatic disease multiple lytic lesion including posterior aspect of T12 vertebral body related dissection of much of right side of T10 vertebra and a large lytic lesion involving the roof of the right acetabulum and right iliac wing and focus of due to dissection lesion in right ischium Stable tiny low-attenuation abnormalities within the liver most likely consistent with multiple tiny cysts Pulmonary emphysema 8 ON 09/24/2016 CA 15.3 342.6 CA 27- 29 493.59 Upper mid back pain and right hip pain due to bone metastases questionable cord compression. She did have restaging with PET/CT on 11/03/2016. The PET/CT revealed multiple FGD avid osteolytic metastases in the left scapula, posterior left 9th rib, T10, T12 and the anterior right acetabulum. Multiple FDG avid metastatic pulmonary nodules represented by 1.9 cm nodule in the posterbasal segment of the right lower lobe with an SUV of 5 and a 1.7 cm nodule in the anterrobasal segment of the left lower lobe with an SUV of 5.1. No hepatic or adrenal metastases identified. Mrs Santamaria was referred to [facility] radiation oncology and underwent radiation to the right hip, left scapula, T10-T12 spine. Her pain resolved with the radiation. offered her palliative chemotherapy with Navelbine and Herceptin. She has agreed to a trial of the chemotherapy. CT scan of the chest August 2017 reported disease progression in the chest and evidence of possible hepatic involvement as well as possible metastatic site involving the left 12th rib. PET/CT scan done on 03/02/2017 showed multiple FDG avid metastatic pulmonary nodules represented by 1.9 cm nodule in the posterior basal segment of right lower lobe with SUV 9.6 compared to 5 on prior exam and a 1.7 cm nodule in the anterior basal segment of left lower lobe with SUV of 4.9 compared to 4.1 on prior exam. There were multiple new hepatic metastatic lesions represented by 1.7 cm nodule with SUV of 5.4 in the anterior superior segment right upper lobe. The PET/CT also reported bone metastasis the left anterior superior iliac spine posteriorly right sacroiliac and T10 T12 right acetabulum, left scapula and posterior left eighth rib. MRI scan of C-spine done on 02/28/2017 showed metastatic lesion of C2 vertebral body. Additional foci of metastatic disease may involve C6 and T1 vertebral bodies multiple disc bulging and spondylosis at C5/C6 and C6/C7 with mild anterior impingement Episode of rectal bleed/abdominal pain probably due to diverticulitis/diverticular bleed CT scan of chest abdomen pelvis done on 03/31/2017 showed pulmonary metastatic disease with variable size of some of the lesion since 10/30/2016 some lesions are smaller and other are larger hepatic and bone metastatic disease similar to the prior exam CT PET scan done on 04/27/2017 showed osseous lesion in left half of C1, and right T1 transverse process and left T1 pedicle, the L1 vertebral body, and L2 vertebral body shows no changes. However, pelvic metastatic disease has worsened with SUV 8.2 compared to 4.1 previously but she is status post radiation therapy to her pelvic bones., Multifocal hepatic metastatic disease is progressed , with SUV 9.8 compared to 5.4 earlier, bilateral hypermetabolic pulmonary nodules are unchanged and right hilar malignant node demonstrated progression Started on lapatinib and Xeloda on 06/08/2017 then it was placed on hold due to radiation therapy to left hip pain. Left posterior hip pain due to bone metastases status post radiation to right hip. Status post radiation therapy to C-spine could complete 9 out of 12 recommended doses because of severe radiation-induced pharyngitis , finished on 06/25/2017 Status palliative post radiation to hip, finished on 06/26/2007 Tumor marker CA-27-29 gone up to 1346.70 on 08/20/2017 from 896.45 on 07/04/2017 Lapatinib and Xeloda discontinued on 08/26/2017 and her treatment plan changed to weekly Herceptin and Taxane 3 weeks on and 1 week off with followup PET/CT after the third cycle. She had GI issues with Zometa ( an episode of nausea vomiting and abdominal pain) so she refuses to repeat the Zometa. She will be offered Xgeva 120 mg every month instead of the Zometa. She began her first cycle of Abraxane and Herceptin on 10/09/2017.Till 12/17/2017 at that time Abraxane was discontinued because of intolerance and last dose of Herceptin was given on 12/31/2017 and because of progressive weakness and fatigue this was also discontinued Patient was referred to [facility] she was seen by Dr. Ramirez on 03/31/2018, many clinical trials are available but due to transportation and financial reason patient could not consider any of them. So palliative chemotherapy with erbulin /Herceptin or carboplatin/gemcitabine/Herceptin was recommended. She did discontinue letrozole on 04/07/2018 and it was recommended that she start on weekly carboplatin AUC 2/gemcitabine 1000 mg/m2/Herceptin day 1, 8 and 15 every 28 days. Along with monthly Xgeva. She began her first cycle on 04/15/2018 .Follow-up CT PET scan done on 07/05/2018 showed hepatic metastatic disease has improved when compared with CT PET scan done in April 2017 and index lesion in the right hepatic dome has now significant central necrosis. There was a mixed response to multiple lung nodules, a left upper lobe nodules is unchanged in size at 1.6 cm but has SUV 3.8 compared to 5.6 before similar improvement is present in the posterior right lower lobe nodule and left lung base nodules. However there are new lesions in the right middle and medial right lobes, the 2 new lesions in the medial right lobe have SUV of 289 and right middle lobe measures 2.6 cm with SUV of 6.8. Multiple osseous lesion seen previously were sclerotic and FDG negative. Suspicious uptake is identified in left femoral neck and proximal right femur and L2. Mrs Santamaria continues with Carboplatin, gemcitabine and Herceptin and monthly Xgeva. She does require intermittent support with growth factors to keep her blood counts up in order to stay on the treatment plan. Follow-up CT PET scan done on 10/25/2018 showed multiple hepatic lesions are seen on prior studies on 07/05/2018 or minimally improved in size and now with improved SUV. Mild improvement in bilateral lung nodules both in size and SUV. Mild improvement is noted in multifocal osseous metastatic disease. Follow-up echocardiogram done on 11/07/2018 showed ejection fraction around 60%. She continues with weekly Carboplatin/gemcitabine and Herceptin. Plan: Discussed with patient regarding her labs white blood count 5.1 hemoglobin 9.4 crit 30.2 platelets 182,000 ANC 2600 CMP within normal limits except alkaline phosphatase 204 and thyroid function???within normal limits Clinically, patient is doing well, tolerating palliative chemotherapy with carboplatin/gemcitabine/Herceptin well but with expected side effects. We'll proceed with next dose today and then she will return to clinic in 2 weeks with CBC CMP if okay for next treatment Signed By: Kortney Pitts M.D. <<Signature on File>>
== END 2019-03-20 23:59 | disposition home or self-care (01) ==
LOC: ONCMED 05:45
PROVIDERS: Nurse Practitioner; Family Provider Nurse Practitioner Family; Visit Provider Internal Medicine Hematology & Oncology
DX: Z51.12 Encounter for antineoplastic immunotherapy (principal); Z51.11 Encounter for antineoplastic chemotherapy; C79.51 Secondary malignant neoplasm of bone; C78.01 Secondary malignant neoplasm of right lung; C78.02 Secondary malignant neoplasm of left lung; C78.7 Secondary malignant neoplasm of liver and intrahepatic bile duct; J43.9 Emphysema, unspecified; R74.8 Abnormal levels of other serum enzymes; Z79.899 Other long term (current) drug therapy; Z85.3 Personal history of malignant neoplasm of breast; Z90.13 Acquired absence of bilateral breasts and nipples; Z92.3 Personal history of irradiation; Z87.891 Personal history of nicotine dependence; Z92.23 Personal history of estrogen therapy
CPT/HCPCS: 80053; 82306; 84439; 84443; 85025; 86300; 93308; 96367; 96372; 96413; 96417; 99214; J0897; J1100; J2469; J7040; J7050; J9045; J9201; J9355

== ENCOUNTER 2019-04-14 05:33 | Outpatient (RCR) | payer MEDICARE, SELFPAY ==
[2019-03-30 14:49] LABS: Basophils % 0.5 %; Eosinophils # 0.2 10^3/uL (0.0-0.8); Eosinophils % 2.6 %; Hematocrit 32.1 % (37.0-47.0); Hemoglobin 9.9 g/dL (11.5-15.3); Lymphocytes # 1.8 10^3/uL (0.8-4.8); Lymphocytes % 27.5 %; Mean Corpuscular HGB Conc 30.8 g/dL (30.0-36.0); Mean Corpuscular Hemoglobin 33.6 pg (28.0-34.0); Mean Corpuscular Volume 108.8 fL (81-99); Mean Platelet Volume 10.4 fL (7.4-10.4); Monocytes # 1.1 10^3/uL (0.2-0.9); Neutrophils # 3.4 10^3/uL (1.8-7.7); Neutrophils % 51.5 %; Nucleated Red Blood Cells % 0 %; Platelet Count 210 10^3/cmm (130-400); Red Blood Count 2.95 10^6/uL (4.1-5.3); White Blood Count 6.7 10^3/uL (4.0-10.0)
[2019-03-30 15:16] LABS: Alanine Aminotransferase 29 U/L (0-33); Albumin Level 4.1 g/dL (3.5-5.2); Alkaline Phosphatase 171 IU/L (35-105); Anion Gap 16.3 (5-19); Aspartate Amino Transferase 34 U/L (0-32); Blood Urea Nitrogen 14 mg/dL (8-23); Calcium 10.3 mg/dL (8.5-10.5); Carbon Dioxide 25 mmol/L (22-29); Chloride 105 mmol/L (98-107); Globulin 3.4 g/dL (1.3-4.6); Glomerular Filtration Rate 72.7 mL/min (90-130); Glucose 75 mg/dL (65-115); Potassium 4.3 mmol/L (3.5-5.1); Sodium 142 mmol/L (136-145); Total Bilirubin 0.2 mg/dL (0.15-1.2); Total Protein 7.5 g/dL (6.6-8.7)
[2019-03-31] MEDS: acetaminophen 325 mg Tablet 650 MG PO (11:30)
[2019-03-31] MEDS: sodium chloride 0.9% 250 ML 300 ML IV (11:30)
[2019-03-31] MEDS: diphenhydrAMINE 25 mg Capsule PO (11:30)
--- NOTE | 2019-03-31 12:38 | ONC FU_ITS ---
Dr. Pitts follow up note Patient: Soledad Santamaria Unit #: [id number]: [id number] Dicatated By: Kortney Pitts M.D.Date of Visit:Mar 31, 2019 Onc Med Follow-up/Prog Note History of Present Illness: Mrs. Santamaria is a 63-year-old female with history of left breast carcinoma with bone metastasis. She presented with an abnormal mammogram in 2010. She had apparently had detected an left-sided breast mass in late 2009. She was referred to Dr Gadiel Reed @ [facility] in [place], [place]. In April 2010, she underwent needle core biopsy of the left breast that did confirm invasive ductal carcinoma histological grade 2/3, ER+ AZ+ and Her 2 Oneida immunostain was 3+. She also had biopsy of a left axillary lymph node that was positive for invasive carcinoma with no lymphoid tissue identified. Her exam prior to chemo revealed a 3 cm mass in the extreme upper outer aspect of the left breast and multiple palpable enlarged lymph nodes-the largest was 2 cm and mobile.. Further workup included a breast MRI which did show biopsy proven malignancy in the left upper outer quadrant measuring 3.3 cm with associated axillary and subpectoral adenopathy. She had multiple satellite nodes with the largest measuring 7 cm. She did undergo MRI guided biopsy on June 08, 2010, which did report invasive cancer. She did have CT of the chest and a bone scan which did not show distant disease,. However, there was an enlarged lymph node in the subcutaneous tissues posterior to the left scapula and was biopsied on May 26, 2010 and was negative for malignancy. She under went neoadjuvant chemotherapy with weekly paclitaxel and Herceptin for 12 cycles from May 2010 to August of 2010 followed by FEC and Herceptin through October 2010. She completed 1 year of Herceptin in May 2011 during which time she was also taking an AI. She did have febrile neutropenia requiring admission in September 2010. She underwent bilateral mastectomies( for abnormal mammogram findings in the right breast) at [facility] in [facility] in November 2010. She did have post mastectomy radiation completed on 03/21/2011. She then underwent reconstruction with bilateral breast implants. Unfortunately in November 2011, the left implant became infected and had to be removed. During work up of the implant abnormality she has found to have a metastatic lesion in her left scapula. She did not have any problems until November of 2012 at which time she was having generalized bone pain, which she thought was a combination of Actonel and Anastrozole. The pain did not improve with stopping these medications. She was transitioned to single agent Tamoxifen. A bone scan revealed increased activity along the lateral margin of the left scapula suspicious of osseous metastatic disease when compared to the bone scan from November 2011. This lesion was biopsied on 12/01/2012 and revealed metastatic disease consistent with the breast primary. She did not have radiation at that time as she was not having significant pain. Mrs Santamaria was restaged and found to have diffuse pulmonary nodules and mediastinal lymphadenopathy and in November 2012, she was enrolled in a clinical trial with Herceptin. Perjeta and Letrozole. She had restaging in March 2014 that revealed slight progression of her pulmonary nodules which did not meet criteria for end point results of the clinical trial and was taken off the trial. Her bone scan was reported as stable. She transferred her care to [facility] in [place], [place] to the care of Dr Mehran Jacobson III in May 2014 due to the difficulty traveling to [facility]. The treatment of letrozole, Herceptin and Perjeta was continued until she disease progression and was changed to Kadcyla in February 2015 after restaging imaging revealed disease progression.And she could not tolerate and it was discontinued after 2 or 3 doses. INTERIM HISTORY: Mrs Santamaria was referred to us in October 2016 for followup at which time, Mrs Santamaria was having right upper back pain, left chest wall pain and right groin pain. She did have restaging with PET/CT on 11/03/2016. The PET/CT revealed multiple FGD avid osteolytic metastases in the left scapula, posterior left 9th rib, T10, T12 and the anterior right acetabulum. Multiple FDG avid metastatic pulmonary nodules represented by 1.9 cm nodule in the posterbasal segment of the right lower lobe with an SUV of 5 and a 1.7 cm nodule in the anterrobasal segment of the left lower lobe with an SUV of 5.1. No hepatic or adrenal metastases identified. Mrs Santamaria was referred to [facility] radiation oncology and underwent radiation to the right hip, left scapula, T10-T12 spine. Her pain resolved with the radiation, offered her palliative chemotherapy with Navelbine and Herceptin. She had agreed to a trial of the chemotherapy. Follow-up CT PET scan showed disease progression chemotherapy was discontinued and she was referred to radiation oncology for palliative radiation therapy. After this cycle of radiation therapy, she was started on lapatinib and Xeloda. She was tolerating it well but she was referred to radiation for C-spine metastases management. At that time her chemotherapy was put on hold. She developed right hip pain for which she received palliative radiation therapy to the 06/25/2017. The lapatinib and Xeloda was restarted but her follow-up tumor markers showed evidence of disease progression as the CA-27-29 gone up to 1346.70 on 08/20/2017 compared to 896.45 on 07/04/2017. Her chemotherapy with Xeloda and lapatinib was discontinued and decided to switch her to weekly Herceptin and Taxane , patient doesn't want take steroids so we recommended Herceptin and Abraxane combination. She did develop nausea vomiting abdominal pain with her last dose of Zometa and doesn't want to take Zometa anymore. We will switch her to Xgeva. There was delay in getting started with the Herceptin/Abraxane. She apparently had positive TB test which required workup and eventually was found to be a false positive. She began her first cycle of Herceptin and Abraxane on 10/09/2017.Last dose of Abraxane/Herceptin was given on 12/17/2017 and because of intolerance Abraxane was discontinued and last dose of Herceptin was given on 12/31/2017 Mrs Santamaria was seen by Dr. Ramirez, oncologist at [facility], for clinical trial and many clinical trials available but due to transportation and financial reasons, patient could not consider any of them. Palliative chemotherapy with carboplatin/gemcitabine/Herceptin or eribulin /Herceptin was recommended. Patient had bone scan and CT scan of chest abdomen done at [facility] which showed widespread metastatic disease. She began chemotherapy with weekly carboplatin, gemcitabine and trastuzumab on 04/15/2018 Follow-up CT PET scan done on 07/05/2018 showed improvement in hepatic metastatic disease since April 2017 study Mixed response to multiple bilateral pulmonary lesion Reactive marrow with splenic activity Osseous metastatic disease seen on April 2017 study is sclerotic and FDG negative CT scan of chest abdomen pelvis done on 07/30/2018 1 patient was admitted to hospital with abdominal pain and diagnosed with diverticulitis treated successfully with antibiotics. Showed extensive pulmonary metastases and hepatic metastases and bone metastases, stable when compared with CT PET scan done in June 2018. She has continued with treatment with carboplatin/gemcitabine/Herceptin. She is tolerated it well. Follow-up CT PET scan done on 10/25/2018 showed mild improvement in hepatic, pulmonary and osseous metastatic disease. She has continued with chemotherapy with weekly Carboplatin, gemcitabine and Herceptin. She is receiving Neupogen support on and Saturday after her treatment on Saturday. She is getting the Neupogen at [place], [place]. She is tolerating this plan well. She continues to have exertional shortness of breath but states it is no worse than what is has been but it is no better either. She denies any angina type pain but thinks she may have palpatations once in a while with the shortness of breath. She denies orthopnea. She denies any cough. She does have a very strong family history of CAD-both parents with her father's first NH in his 30's and both brothers have CAD. She has never had a diagnosis of CAD. She did have an echocardiogram on 11/07/2018 that reported EF of 60%-unchanged from previous echo. She reported she had a bug bite on her right breast reconstruction site around where the nipple should be. She states it presented as a big blister then it popped and is now a scabbed area but no drainage. She has been applying triple antibotic ointment to it and states she thinks it is healing well. She was referred to plastic surgery at [facility] and ulimately underwent right breast implant removal in December 2018, as per patient and there was no evidence of breast cancer in the specimen. Her chemotherapy was delayed because of dental procedure from 12/30/2018 to 02/04/2019. She resumed treatment on 02/04/2019 Echocardiogram done on 03/09/2019 showed Ejection fraction was 68% Came for follow-up, denies any specific complaints except persistent mild to moderate off and on numbness, in the left arm more in the left hand denies any chest pain or shortness of breath. And also complaining of off-and-on pain in her left leg. Patient has tried Lyrica in the past without much help. Now Motrin is not helping her much. Avoiding narcotics. No fever or chills, no nausea or vomiting, no chest pain or shortness of breath. No palpitation. No headaches or blurred vision double vision, no urine or stool incontinence. No recent history of trauma to the neck or left shoulder or lower back or hip.tolerating systemic therapy with Herceptin/gemcitabine/carboplatin well otherwise. Medications: Claritin 1 Tablet (of 10 mg) Oral daily, Magnesium 1 Tablet Oral daily PRN, Multivitamin Adults 1 Tablet Oral daily PRN, Potassium 1 Tablet (of 99 mg) Oral daily PRN, Prevacid 1 Capsule (of 30 mg) Capsule Delayed Release Oral daily, Vitamin C 1 Tablet Oral daily PRN Allergies: Codeine Sulfate Review of Systems: Constitutional - Appetite is fair, weight is stable. Energy level is fair today, ENMT - No sinus congestion/drainage. No mouth sores. No sore throat or difficulty swallowing, Hematologic/Lymphatic - No abnormal bruising or bleeding, Respiratory - No dyspnea on exertion, chest pain, cough or hemoptysis, Cardiovascular - No anginal chest pain, palpitations or orthopnea, Gastrointestinal - No nausea, vomiting, diarrhea, GI bleeding, or constipation. No change in bowel habits, no heartburn or early satiety, Genitourinary (F) - No hematuria, dysuria, increased frequency, urgency, hesitancy or incontinence, Musculoskeletal - Positive for back pain, Neurologic - No dizziness, or numbness/tingling, Psychiatric - No anxiety or depression. No insomnia. Vital Signs: Performed on Mar 31, 2019 10:42 Height - 67.00 in Weight - 155.0 lbs (HIGH) BSA - 1.81 sq.m BMI - 24.28 Temperature - 97.8 F (LOW) Pulse - 72 /min Respiration - 18 /min BP - 119/74 mm(hg) O2 Sat - 92 % (LOW) Pain - 8 Performance Status: 1 - No physically strenuous activity, but ambulatory and able to carry out light or sedentary work (e.g. office work, light house work). (ECOG) Physical Examination: Respiratory - Lungs are clear to auscultation without rhonchi or wheezing, Cardiovascular - Regular rate and rhythm of heart, Extremities - no edema , no focal weakness. Lab/Imaging: Test performed on Mar 02, 2019 10:45 Glucose 37 mg/dL Vitamin D (25-Hydroxy) 28 ng/mL BUN 9 mg/dL Creatinine 0.7 mg/dL Cr Clearance (Est) 90.94 mL/min Sodium 141 mmol/L Potassium 4.0 mmol/L Chloride 102 mmol/L CO2 26 mmol/L Calcium 10.3 mg/dL Protein, Total 7.2 g/dL Albumin 4.4 g/dL Globulin 2.8 g/dL Bilirubin, Total 0.3 mg/dL Alkaline Phosphatase 227 IU/L AST (SGOT) 37 IU/L ALT (SGPT) 37 IU/L WBC 6.1 10 3/uL RBC 3.2 10^6/uL HGB 10.6 g/dL HCT 34.2 % MCV 106.9 fL MCH 33.1 pg MCHC 31.0 g/dL RDW 16.2 % Platelet Count 153 10^3/uL MPV 11.6 fL Neutrophils 3.3 10 3/uL Neutrophil % 54.1 % Lymphocyte % 28 % Monocyte % 14.3 % Basophils % 0.3 % Test performed on Feb 16, 2019 10:55 Anion Gap 17.7 eGFR 125.0 mL/min Lymphocytes 1.4 10 3/uL Monocytes 0.6 10 3/uL Eosinophils 0.2 10 3/uL Basophils 0.0 10 3/uL Eosinophil % 4.4 % Test performed on Nov 10, 2018 07:00 Ferritin 191.0 ng/ml Folate, Serum 10.5 ng/mL Iron 74 ug/dL Vitamin B12 1423 pg/mL % Iron Saturation 22.4 % Impression: History of left breast cancer with metastases to left scapula status post bilateral mastectomy and left axillary lymph node dissection followed by radiation therapy to left chest wall and axilla in 2008 in [facility] in [facility] status post 1 year of Herceptin and paclitaxel and Arimidex for some time status post radiation therapy to left scapula biopsy-proven metastases Medical record obtained from [facility] [place], [place] and ER/AZ positive HER-2/oneida overexpression positive it shows #1 presentation with abnormal screening mammogram in 2010. Patient underwent neoadjuvant chemotherapy with weekly paclitaxel and Herceptin for 12 cycle from May Treated with neoadjuvant chemotherapy FEC plus Herceptin from August 2010 through October 2010 In November 2010 she undergoes bilateral simple mastectomy with pathology demonstrating pT2 N2 disease Patient completed 1 year of adjuvant Herceptin therapy with adjuvant aromatase inhibitor In October 2011 patient transitioned to single agent tamoxifen due to poor tolerance of aromatase inhibitor therapy next In October 2012 patient presented with left scapular pain imaging demonstrates abnormal bones lesion with biopsy notable for ER/AZ positive HER-2/oneida overexpressing breast cancer, staging evaluation demonstrated bilateral pulmonary nodules with mediastinal lymphadenopathy On 12/16/2012 patient initiates letrozole plus Herceptin plus PERJETA on clinical trial On 02/22/2015 patient demonstrates subjective progression of disease within lungs On 02/25/2015 initiated on KADCYLA History of metastatic disease status post chemotherapy with different agents on multiple occasions most recent hormonal agent was letrozole 2.5 mg Elevated tumor markers CA [address] scan of chest abdomen pelvis done on 10/10/2016 showed multiple bilateral pulmonary nodules consistent with metastatic disease multiple lytic lesion including posterior aspect of T12 vertebral body related dissection of much of right side of T10 vertebra and a large lytic lesion involving the roof of the right acetabulum and right iliac wing and focus of due to dissection lesion in right ischium Stable tiny low-attenuation abnormalities within the liver most likely consistent with multiple tiny cysts Pulmonary emphysema 8 ON 09/24/2016 CA 15.3 342.6 CA 27- 29 493.59 Upper mid back pain and right hip pain due to bone metastases questionable cord compression. She did have restaging with PET/CT on 11/03/2016. The PET/CT revealed multiple FGD avid osteolytic metastases in the left scapula, posterior left 9th rib, T10, T12 and the anterior right acetabulum. Multiple FDG avid metastatic pulmonary nodules represented by 1.9 cm nodule in the posterbasal segment of the right lower lobe with an SUV of 5 and a 1.7 cm nodule in the anterrobasal segment of the left lower lobe with an SUV of 5.1. No hepatic or adrenal metastases identified. Mrs Santamaria was referred to [facility] radiation oncology and underwent radiation to the right hip, left scapula, T10-T12 spine. Her pain resolved with the radiation. offered her palliative chemotherapy with Navelbine and Herceptin. She has agreed to a trial of the chemotherapy. CT scan of the chest August 2017 reported disease progression in the chest and evidence of possible hepatic involvement as well as possible metastatic site involving the left 12th rib. PET/CT scan done on 03/02/2017 showed multiple FDG avid metastatic pulmonary nodules represented by 1.9 cm nodule in the posterior basal segment of right lower lobe with SUV 9.6 compared to 5 on prior exam and a 1.7 cm nodule in the anterior basal segment of left lower lobe with SUV of 4.9 compared to 4.1 on prior exam. There were multiple new hepatic metastatic lesions represented by 1.7 cm nodule with SUV of 5.4 in the anterior superior segment right upper lobe. The PET/CT also reported bone metastasis the left anterior superior iliac spine posteriorly right sacroiliac and T10 T12 right acetabulum, left scapula and posterior left eighth rib. MRI scan of C-spine done on 02/28/2017 showed metastatic lesion of C2 vertebral body. Additional foci of metastatic disease may involve C6 and T1 vertebral bodies multiple disc bulging and spondylosis at C5/C6 and C6/C7 with mild anterior impingement Episode of rectal bleed/abdominal pain probably due to diverticulitis/diverticular bleed CT scan of chest abdomen pelvis done on 03/31/2017 showed pulmonary metastatic disease with variable size of some of the lesion since 10/30/2016 some lesions are smaller and other are larger hepatic and bone metastatic disease similar to the prior exam CT PET scan done on 04/27/2017 showed osseous lesion in left half of C1, and right T1 transverse process and left T1 pedicle, the L1 vertebral body, and L2 vertebral body shows no changes. However, pelvic metastatic disease has worsened with SUV 8.2 compared to 4.1 previously but she is status post radiation therapy to her pelvic bones., Multifocal hepatic metastatic disease is progressed , with SUV 9.8 compared to 5.4 earlier, bilateral hypermetabolic pulmonary nodules are unchanged and right hilar malignant node demonstrated progression Started on lapatinib and Xeloda on 06/08/2017 then it was placed on hold due to radiation therapy to left hip pain. Left posterior hip pain due to bone metastases status post radiation to right hip. Status post radiation therapy to C-spine could complete 9 out of 12 recommended doses because of severe radiation-induced pharyngitis , finished on 06/25/2017 Status palliative post radiation to hip, finished on 06/26/2007 Tumor marker CA-27-29 gone up to 1346.70 on 08/20/2017 from 896.45 on 07/04/2017 Lapatinib and Xeloda discontinued on 08/26/2017 and her treatment plan changed to weekly Herceptin and Taxane 3 weeks on and 1 week off with followup PET/CT after the third cycle. She had GI issues with Zometa ( an episode of nausea vomiting and abdominal pain) so she refuses to repeat the Zometa. She will be offered Xgeva 120 mg every month instead of the Zometa. She began her first cycle of Abraxane and Herceptin on 10/09/2017.Till 12/17/2017 at that time Abraxane was discontinued because of intolerance and last dose of Herceptin was given on 12/31/2017 and because of progressive weakness and fatigue this was also discontinued Patient was referred to [facility] she was seen by Dr. Ramirez on 03/31/2018, many clinical trials are available but due to transportation and financial reason patient could not consider any of them. So palliative chemotherapy with erbulin /Herceptin or carboplatin/gemcitabine/Herceptin was recommended. She did discontinue letrozole on 04/07/2018 and it was recommended that she start on weekly carboplatin AUC 2/gemcitabine 1000 mg/m2/Herceptin day 1, 8 and 15 every 28 days. Along with monthly Xgeva. She began her first cycle on 04/15/2018 .Follow-up CT PET scan done on 07/05/2018 showed hepatic metastatic disease has improved when compared with CT PET scan done in April 2017 and index lesion in the right hepatic dome has now significant central necrosis. There was a mixed response to multiple lung nodules, a left upper lobe nodules is unchanged in size at 1.6 cm but has SUV 3.8 compared to 5.6 before similar improvement is present in the posterior right lower lobe nodule and left lung base nodules. However there are new lesions in the right middle and medial right lobes, the 2 new lesions in the medial right lobe have SUV of 289 and right middle lobe measures 2.6 cm with SUV of 6.8. Multiple osseous lesion seen previously were sclerotic and FDG negative. Suspicious uptake is identified in left femoral neck and proximal right femur and L2. Mrs Santamaria continues with Carboplatin, gemcitabine and Herceptin and monthly Xgeva. She does require intermittent support with growth factors to keep her blood counts up in order to stay on the treatment plan. Follow-up CT PET scan done on 10/25/2018 showed multiple hepatic lesions are seen on prior studies on 07/05/2018 or minimally improved in size and now with improved SUV. Mild improvement in bilateral lung nodules both in size and SUV. Mild improvement is noted in multifocal osseous metastatic disease. Follow-up echocardiogram done on 11/07/2018 showed ejection fraction around 60%. She continues with weekly Carboplatin/gemcitabine and Herceptin. Plan: Discussed with patient regarding her labs white blood count 6.7 hemoglobin 9.9 hematocrit 32.1 platelets 210 ANC 3400 CMP within normal limits Clinically, patient is doing well, tolerating systemic therapy with Herceptin/Carbo/gemcitabine well but with expected side effects. We'll proceed with the next biweekly dose of chemotherapy with carboplatin/gemcitabine/Herceptin today and then will consider follow-up CT PET scan to assess disease status, patient continued to improve we'll continue same regimen otherwise consider change. As far as left arm/hand of no numbness is concern could be due to cervical radiculopathy or nerve compression in in the axilla as she is status post axillary lymph node dissection or carpal tunnel next If CT PET scan shows improvement then will consider neurological evaluation. Signed By: Kortney Pitts M.D. <<Signature on File>>
[2019-04-13 16:40] LABS: Basophils % 0.7 %; Eosinophils # 0.3 10^3/uL (0.0-0.8); Eosinophils % 4.6 %; Hematocrit 33.6 % (37.0-47.0); Hemoglobin 10.1 g/dL (11.5-15.3); Lymphocytes # 1.8 10^3/uL (0.8-4.8); Lymphocytes % 31.8 %; Mean Corpuscular HGB Conc 30.1 g/dL (30.0-36.0); Mean Corpuscular Hemoglobin 31.7 pg (28.0-34.0); Mean Corpuscular Volume 105.3 fL (81-99); Mean Platelet Volume 10.6 fL (7.4-10.4); Monocytes % 18.1 %; Neutrophils # 2.5 10^3/uL (1.8-7.7); Neutrophils % 44.1 %; Nucleated Red Blood Cells % 0 %; Platelet Count 189 10^3/cmm (130-400); Red Blood Count 3.19 10^6/uL (4.1-5.3); Red Cell Distribution Width 19.3 % (12.1-15.1); White Blood Count 5.7 10^3/uL (4.0-10.0)
[2019-04-13 17:25] LABS: Alanine Aminotransferase 32 U/L (0-33); Albumin Level 3.8 g/dL (3.5-5.2); Alkaline Phosphatase 172 IU/L (35-105); Anion Gap 18.4 (5-19); Aspartate Amino Transferase 46 U/L (0-32); Blood Urea Nitrogen 9 mg/dL (8-23); Carbon Dioxide 25 mmol/L (22-29); Chloride 100 mmol/L (98-107); Globulin 4.1 g/dL (1.3-4.6); Glomerular Filtration Rate 84.8 mL/min (90-130); Glucose 78 mg/dL (65-115); Potassium 4.4 mmol/L (3.5-5.1); Sodium 139 mmol/L (136-145); Total Bilirubin 0.3 mg/dL (0.15-1.2); Total Protein 7.9 g/dL (6.6-8.7)
[2019-04-14] MEDS: acetaminophen 325 mg Tablet 650 MG PO (13:42)
[2019-04-14] MEDS: diphenhydrAMINE 25 mg Capsule PO (13:42)
[2019-04-14] MEDS: sodium chloride 0.9% 250 ML 75 ML IV (13:45)
[2019-04-14] MEDS: denosumab 120 mg SDV SUBCUT (14:00)
--- NOTE | 2019-04-16 09:47 | ONC FU_ITS ---
Dr. Pitts follow up note Patient: Soledad Santamaria Unit #: [id number]: 1955 Dicatated By: Kortney Pitts M.D.Date of Visit:Apr 14, 2019 Onc Med Follow-up/Prog Note History of Present Illness: Mrs. Santamaria is a 63-year-old female with history of left breast carcinoma with bone metastasis. She presented with an abnormal mammogram in 2010. She had apparently had detected an left-sided breast mass in late 2009. She was referred to Dr Gadiel Reed @ [facility] in [place], [place]. In April 2010, she underwent needle core biopsy of the left breast that did confirm invasive ductal carcinoma histological grade 2/3, ER+ TX+ and Her 2 Oneida immunostain was 3+. She also had biopsy of a left axillary lymph node that was positive for invasive carcinoma with no lymphoid tissue identified. Her exam prior to chemo revealed a 3 cm mass in the extreme upper outer aspect of the left breast and multiple palpable enlarged lymph nodes-the largest was 2 cm and mobile.. Further workup included a breast MRI which did show biopsy proven malignancy in the left upper outer quadrant measuring 3.3 cm with associated axillary and subpectoral adenopathy. She had multiple satellite nodes with the largest measuring 7 cm. She did undergo MRI guided biopsy on June 08, 2010, which did report invasive cancer. She did have CT of the chest and a bone scan which did not show distant disease,. However, there was an enlarged lymph node in the subcutaneous tissues posterior to the left scapula and was biopsied on May 26, 2010 and was negative for malignancy. She under went neoadjuvant chemotherapy with weekly paclitaxel and Herceptin for 12 cycles from May 2010 to August of 2010 followed by FEC and Herceptin through October 2010. She completed 1 year of Herceptin in May 2011 during which time she was also taking an AI. She did have febrile neutropenia requiring admission in September 2010. She underwent bilateral mastectomies( for abnormal mammogram findings in the right breast) at [facility] in [facility] in November 2010. She did have post mastectomy radiation completed on 03/21/2011. She then underwent reconstruction with bilateral breast implants. Unfortunately in November 2011, the left implant became infected and had to be removed. During work up of the implant abnormality she has found to have a metastatic lesion in her left scapula. She did not have any problems until November of 2012 at which time she was having generalized bone pain, which she thought was a combination of Actonel and Anastrozole. The pain did not improve with stopping these medications. She was transitioned to single agent Tamoxifen. A bone scan revealed increased activity along the lateral margin of the left scapula suspicious of osseous metastatic disease when compared to the bone scan from November 2011. This lesion was biopsied on 12/01/2012 and revealed metastatic disease consistent with the breast primary. She did not have radiation at that time as she was not having significant pain. Mrs Santamaria was restaged and found to have diffuse pulmonary nodules and mediastinal lymphadenopathy and in November 2012, she was enrolled in a clinical trial with Herceptin. Perjeta and Letrozole. She had restaging in March 2014 that revealed slight progression of her pulmonary nodules which did not meet criteria for end point results of the clinical trial and was taken off the trial. Her bone scan was reported as stable. She transferred her care to [facility] in [place], [place] to the care of Dr Mehran Jacobson III in May 2014 due to the difficulty traveling to [facility]. The treatment of letrozole, Herceptin and Perjeta was continued until she disease progression and was changed to Kadcyla in February 2015 after restaging imaging revealed disease progression.And she could not tolerate and it was discontinued after 2 or 3 doses. INTERIM HISTORY: Mrs Santamaria was referred to us in October 2016 for followup at which time, Mrs Santamaria was having right upper back pain, left chest wall pain and right groin pain. She did have restaging with PET/CT on 11/03/2016. The PET/CT revealed multiple FGD avid osteolytic metastases in the left scapula, posterior left 9th rib, T10, T12 and the anterior right acetabulum. Multiple FDG avid metastatic pulmonary nodules represented by 1.9 cm nodule in the posterbasal segment of the right lower lobe with an SUV of 5 and a 1.7 cm nodule in the anterrobasal segment of the left lower lobe with an SUV of 5.1. No hepatic or adrenal metastases identified. Mrs Santamaria was referred to [facility] radiation oncology and underwent radiation to the right hip, left scapula, T10-T12 spine. Her pain resolved with the radiation, offered her palliative chemotherapy with Navelbine and Herceptin. She had agreed to a trial of the chemotherapy. Follow-up CT PET scan showed disease progression chemotherapy was discontinued and she was referred to radiation oncology for palliative radiation therapy. After this cycle of radiation therapy, she was started on lapatinib and Xeloda. She was tolerating it well but she was referred to radiation for C-spine metastases management. At that time her chemotherapy was put on hold. She developed right hip pain for which she received palliative radiation therapy to the 06/25/2017. The lapatinib and Xeloda was restarted but her follow-up tumor markers showed evidence of disease progression as the CA-27-29 gone up to 1346.70 on 08/20/2017 compared to 896.45 on 07/04/2017. Her chemotherapy with Xeloda and lapatinib was discontinued and decided to switch her to weekly Herceptin and Taxane , patient doesn't want take steroids so we recommended Herceptin and Abraxane combination. She did develop nausea vomiting abdominal pain with her last dose of Zometa and doesn't want to take Zometa anymore. We will switch her to Xgeva. There was delay in getting started with the Herceptin/Abraxane. She apparently had positive TB test which required workup and eventually was found to be a false positive. She began her first cycle of Herceptin and Abraxane on 10/09/2017.Last dose of Abraxane/Herceptin was given on 12/17/2017 and because of intolerance Abraxane was discontinued and last dose of Herceptin was given on 12/31/2017 Mrs Santamaria was seen by Dr. Ramirez, oncologist at [facility], for clinical trial and many clinical trials available but due to transportation and financial reasons, patient could not consider any of them. Palliative chemotherapy with carboplatin/gemcitabine/Herceptin or eribulin /Herceptin was recommended. Patient had bone scan and CT scan of chest abdomen done at [facility] which showed widespread metastatic disease. She began chemotherapy with weekly carboplatin, gemcitabine and trastuzumab on 04/15/2018 Follow-up CT PET scan done on 07/05/2018 showed improvement in hepatic metastatic disease since April 2017 study Mixed response to multiple bilateral pulmonary lesion Reactive marrow with splenic activity Osseous metastatic disease seen on April 2017 study is sclerotic and FDG negative CT scan of chest abdomen pelvis done on 07/30/2018 1 patient was admitted to hospital with abdominal pain and diagnosed with diverticulitis treated successfully with antibiotics. Showed extensive pulmonary metastases and hepatic metastases and bone metastases, stable when compared with CT PET scan done in June 2018. She has continued with treatment with carboplatin/gemcitabine/Herceptin. She is tolerated it well. Follow-up CT PET scan done on 10/25/2018 showed mild improvement in hepatic, pulmonary and osseous metastatic disease. She has continued with chemotherapy with weekly Carboplatin, gemcitabine and Herceptin. She is receiving Neupogen support on and Saturday after her treatment on Saturday. She is getting the Neupogen at [place], [place]. She is tolerating this plan well. She continues to have exertional shortness of breath but states it is no worse than what is has been but it is no better either. She denies any angina type pain but thinks she may have palpatations once in a while with the shortness of breath. She denies orthopnea. She denies any cough. She does have a very strong family history of CAD-both parents with her father's first VT in his 30's and both brothers have CAD. She has never had a diagnosis of CAD. She did have an echocardiogram on 11/07/2018 that reported EF of 60%-unchanged from previous echo. She reported she had a bug bite on her right breast reconstruction site around where the nipple should be. She states it presented as a big blister then it popped and is now a scabbed area but no drainage. She has been applying triple antibotic ointment to it and states she thinks it is healing well. She was referred to plastic surgery at [facility] and ulimately underwent right breast implant removal in December 2018, as per patient and there was no evidence of breast cancer in the specimen. Her chemotherapy was delayed because of dental procedure from 12/30/2018 to 02/04/2019. She resumed treatment on 02/04/2019 Echocardiogram done on 03/09/2019 showed Ejection fraction was 68% Came for follow-up, denies any specific complaints, no fever no chills no nausea vomiting no diarrhea no constipation, tolerating palliative chemotherapy with carboplatin/gemcitabine/Herceptin well. Medications: Claritin 1 Tablet (of 10 mg) Oral daily, Magnesium 1 Tablet Oral daily PRN, Multivitamin Adults 1 Tablet Oral daily PRN, Potassium 1 Tablet (of 99 mg) Oral daily PRN, Prevacid 1 Capsule (of 30 mg) Capsule Delayed Release Oral daily, Vitamin C 1 Tablet Oral daily PRN Allergies: Codeine Sulfate Review of Systems: Constitutional - Appetite is fair, weight is stable. Energy level is good, ENMT - No sinus congestion/drainage. No mouth sores. No sore throat or difficulty swallowing, Hematologic/Lymphatic - No abnormal bruising or bleeding, Respiratory - No dyspnea on exertion, chest pain, cough or hemoptysis, Cardiovascular - No anginal chest pain, palpitations or orthopnea, Gastrointestinal - No nausea, vomiting, diarrhea, GI bleeding, or constipation. No change in bowel habits, no heartburn or early satiety, Genitourinary (F) - No hematuria, dysuria, increased frequency, urgency, hesitancy or incontinence, Musculoskeletal - Positive for back pain, Neurologic - No dizziness, or numbness/tingling, Psychiatric - No anxiety or depression. No insomnia. Vital Signs: Performed on Apr 14, 2019 12:37 Height - 67.00 in Weight - 153.6 lbs (LOW) BSA - 1.81 sq.m BMI - 24.06 Temperature - 98.2 F (LOW) Pulse - 99 /min Respiration - 18 /min BP - 138/75 mm(hg) O2 Sat - 89 % (LOW) Pain - 0 Performance Status: 1 - No physically strenuous activity, but ambulatory and able to carry out light or sedentary work (e.g. office work, light house work). (ECOG) Physical Examination: Respiratory - Lungs are clear to auscultation without rhonchi or wheezing, Cardiovascular - Regular rate and rhythm of heart, Extremities - no edema. Lab/Imaging: Test performed on Mar 30, 2019 10:30 Sodium 142 mmol/L Potassium 4.3 mmol/L Chloride 105 mmol/L CO2 25 mmol/L Anion Gap 16.3 BUN 14 mg/dL Creatinine 0.8 mg/dL Cr Clearance (Est) 79.5700 mL/min eGFR 72.7 mL/min Glucose 75 mg/dL Calcium 10.3 mg/dL Protein, Total 7.5 g/dL Albumin 4.1 g/dL Globulin 3.4 g/dL Bilirubin, Total 0.2 mg/dL ALT (SGPT) 29 U/L AST (SGOT) 34 U/L Alkaline Phosphatase 171 IU/L WBC 6.7 10 3/uL RBC 2.95 10 6/uL HGB 9.9 g/dL HCT 32.1 % MCV 108.8 fL MCH 33.6 pg MCHC 30.8 g/dL RDW 18.0 % Platelet Count 210 10 3/cmm MPV 10.4 fL Neutrophils 3.4 10 3/uL Lymphocytes 1.8 10 3/uL Monocytes 1.1 10 3/uL Eosinophils 0.2 10 3/uL Basophils 0.0 10 3/uL Neutrophil % 51.5 % Lymphocyte % 27.5 % Monocyte % 17.0 % Eosinophil % 2.6 % Basophils % 0.5 % Test performed on Mar 02, 2019 10:45 Vitamin D (25-Hydroxy) 28 ng/mL Test performed on Nov 10, 2018 07:00 Ferritin 191.0 ng/ml Folate, Serum 10.5 ng/mL Iron 74 ug/dL Vitamin B12 1423 pg/mL % Iron Saturation 22.4 % Impression: History of left breast cancer with metastases to left scapula status post bilateral mastectomy and left axillary lymph node dissection followed by radiation therapy to left chest wall and axilla in 2008 in [facility] in [facility] status post 1 year of Herceptin and paclitaxel and Arimidex for some time status post radiation therapy to left scapula biopsy-proven metastases Medical record obtained from [facility] [place], [place] and ER/TX positive HER-2/oneida overexpression positive it shows #1 presentation with abnormal screening mammogram in 2010. Patient underwent neoadjuvant chemotherapy with weekly paclitaxel and Herceptin for 12 cycle from May Treated with neoadjuvant chemotherapy FEC plus Herceptin from August 2010 through October 2010 In November 2010 she undergoes bilateral simple mastectomy with pathology demonstrating pT2 N2 disease Patient completed 1 year of adjuvant Herceptin therapy with adjuvant aromatase inhibitor In October 2011 patient transitioned to single agent tamoxifen due to poor tolerance of aromatase inhibitor therapy next In October 2012 patient presented with left scapular pain imaging demonstrates abnormal bones lesion with biopsy notable for ER/TX positive HER-2/oneida overexpressing breast cancer, staging evaluation demonstrated bilateral pulmonary nodules with mediastinal lymphadenopathy On 12/16/2012 patient initiates letrozole plus Herceptin plus PERJETA on clinical trial On 02/22/2015 patient demonstrates subjective progression of disease within lungs On 02/25/2015 initiated on KADCYLA History of metastatic disease status post chemotherapy with different agents on multiple occasions most recent hormonal agent was letrozole 2.5 mg Elevated tumor markers [place] [address] scan of chest abdomen pelvis done on 10/10/2016 showed multiple bilateral pulmonary nodules consistent with metastatic disease multiple lytic lesion including posterior aspect of T12 vertebral body related dissection of much of right side of T10 vertebra and a large lytic lesion involving the roof of the right acetabulum and right iliac wing and focus of due to dissection lesion in right ischium Stable tiny low-attenuation abnormalities within the liver most likely consistent with multiple tiny cysts Pulmonary emphysema 8 ON 09/24/2016 CA 15.3 342.6 CA 27- 29 493.59 Upper mid back pain and right hip pain due to bone metastases questionable cord compression. She did have restaging with PET/CT on 11/03/2016. The PET/CT revealed multiple FGD avid osteolytic metastases in the left scapula, posterior left 9th rib, T10, T12 and the anterior right acetabulum. Multiple FDG avid metastatic pulmonary nodules represented by 1.9 cm nodule in the posterbasal segment of the right lower lobe with an SUV of 5 and a 1.7 cm nodule in the anterrobasal segment of the left lower lobe with an SUV of 5.1. No hepatic or adrenal metastases identified. Mrs Santamaria was referred to [facility] radiation oncology and underwent radiation to the right hip, left scapula, T10-T12 spine. Her pain resolved with the radiation. offered her palliative chemotherapy with Navelbine and Herceptin. She has agreed to a trial of the chemotherapy. CT scan of the chest August 2017 reported disease progression in the chest and evidence of possible hepatic involvement as well as possible metastatic site involving the left 12th rib. PET/CT scan done on 03/02/2017 showed multiple FDG avid metastatic pulmonary nodules represented by 1.9 cm nodule in the posterior basal segment of right lower lobe with SUV 9.6 compared to 5 on prior exam and a 1.7 cm nodule in the anterior basal segment of left lower lobe with SUV of 4.9 compared to 4.1 on prior exam. There were multiple new hepatic metastatic lesions represented by 1.7 cm nodule with SUV of 5.4 in the anterior superior segment right upper lobe. The PET/CT also reported bone metastasis the left anterior superior iliac spine posteriorly right sacroiliac and T10 T12 right acetabulum, left scapula and posterior left eighth rib. MRI scan of C-spine done on 02/28/2017 showed metastatic lesion of C2 vertebral body. Additional foci of metastatic disease may involve C6 and T1 vertebral bodies multiple disc bulging and spondylosis at C5/C6 and C6/C7 with mild anterior impingement Episode of rectal bleed/abdominal pain probably due to diverticulitis/diverticular bleed CT scan of chest abdomen pelvis done on 03/31/2017 showed pulmonary metastatic disease with variable size of some of the lesion since 10/30/2016 some lesions are smaller and other are larger hepatic and bone metastatic disease similar to the prior exam CT PET scan done on 04/27/2017 showed osseous lesion in left half of C1, and right T1 transverse process and left T1 pedicle, the L1 vertebral body, and L2 vertebral body shows no changes. However, pelvic metastatic disease has worsened with SUV 8.2 compared to 4.1 previously but she is status post radiation therapy to her pelvic bones., Multifocal hepatic metastatic disease is progressed , with SUV 9.8 compared to 5.4 earlier, bilateral hypermetabolic pulmonary nodules are unchanged and right hilar malignant node demonstrated progression Started on lapatinib and Xeloda on 06/08/2017 then it was placed on hold due to radiation therapy to left hip pain. Left posterior hip pain due to bone metastases status post radiation to right hip. Status post radiation therapy to C-spine could complete 9 out of 12 recommended doses because of severe radiation-induced pharyngitis , finished on 06/25/2017 Status palliative post radiation to hip, finished on 06/26/2007 Tumor marker CA-27-29 gone up to 1346.70 on 08/20/2017 from 896.45 on 07/04/2017 Lapatinib and Xeloda discontinued on 08/26/2017 and her treatment plan changed to weekly Herceptin and Taxane 3 weeks on and 1 week off with followup PET/CT after the third cycle. She had GI issues with Zometa ( an episode of nausea vomiting and abdominal pain) so she refuses to repeat the Zometa. She will be offered Xgeva 120 mg every month instead of the Zometa. She began her first cycle of Abraxane and Herceptin on 10/09/2017.Till 12/17/2017 at that time Abraxane was discontinued because of intolerance and last dose of Herceptin was given on 12/31/2017 and because of progressive weakness and fatigue this was also discontinued Patient was referred to [facility] she was seen by Dr. Ramirez on 03/31/2018, many clinical trials are available but due to transportation and financial reason patient could not consider any of them. So palliative chemotherapy with erbulin /Herceptin or carboplatin/gemcitabine/Herceptin was recommended. She did discontinue letrozole on 04/07/2018 and it was recommended that she start on weekly carboplatin AUC 2/gemcitabine 1000 mg/m2/Herceptin day 1, 8 and 15 every 28 days. Along with monthly Xgeva. She began her first cycle on 04/15/2018 .Follow-up CT PET scan done on 07/05/2018 showed hepatic metastatic disease has improved when compared with CT PET scan done in April 2017 and index lesion in the right hepatic dome has now significant central necrosis. There was a mixed response to multiple lung nodules, a left upper lobe nodules is unchanged in size at 1.6 cm but has SUV 3.8 compared to 5.6 before similar improvement is present in the posterior right lower lobe nodule and left lung base nodules. However there are new lesions in the right middle and medial right lobes, the 2 new lesions in the medial right lobe have SUV of 289 and right middle lobe measures 2.6 cm with SUV of 6.8. Multiple osseous lesion seen previously were sclerotic and FDG negative. Suspicious uptake is identified in left femoral neck and proximal right femur and L2. Mrs Santamaria continues with Carboplatin, gemcitabine and Herceptin and monthly Xgeva. She does require intermittent support with growth factors to keep her blood counts up in order to stay on the treatment plan. Follow-up CT PET scan done on 10/25/2018 showed multiple hepatic lesions are seen on prior studies on 07/05/2018 or minimally improved in size and now with improved SUV. Mild improvement in bilateral lung nodules both in size and SUV. Mild improvement is noted in multifocal osseous metastatic disease. Follow-up echocardiogram done on 11/07/2018 showed ejection fraction around 60%. She continues with weekly Carboplatin/gemcitabine and Herceptin. Plan: Discussed with patient regarding her labs white blood count 5.7 hemoglobin 10.1 crit 33.6 platelets 189,000 CMP within normal limits Clinically, patient is doing well, tolerating palliative chemotherapy with Herceptin/carboplatin/gemcitabine well. We'll proceed with the next dose today and then she will return to clinic in 2 weeks with CBC CMP and if reasonable for next cycle of treatment. Signed By: Kortney Pitts M.D. <<Signature on File>>
== END 2019-04-18 23:59 | disposition home or self-care (01) ==
LOC: ONCMED 05:33
PROVIDERS: Family Provider Nurse Practitioner Family; PCP Nurse Practitioner Family; Visit Provider Internal Medicine Hematology & Oncology
DX: Z51.11 Encounter for antineoplastic chemotherapy (principal); Z51.12 Encounter for antineoplastic immunotherapy; C79.51 Secondary malignant neoplasm of bone; C78.01 Secondary malignant neoplasm of right lung; C78.02 Secondary malignant neoplasm of left lung; C78.7 Secondary malignant neoplasm of liver and intrahepatic bile duct; Z85.3 Personal history of malignant neoplasm of breast; Z17.0 Estrogen receptor positive status [ER+]; Z79.899 Other long term (current) drug therapy; Z90.13 Acquired absence of bilateral breasts and nipples; Z92.3 Personal history of irradiation; Z92.23 Personal history of estrogen therapy
CPT/HCPCS: 80053; 85025; 96367; 96372; 96413; 96417; 99214; J0897; J1100; J2469; J7040; J7050; J9045; J9201; J9355

== ENCOUNTER 2019-05-13 05:40 | Outpatient (RCR) | payer MEDICARE, SELFPAY ==
[2019-04-27 17:50] LABS: Basophils % 0.4 %; Eosinophils # 0.2 10^3/uL (0.0-0.8); Eosinophils % 3.5 %; Hematocrit 29.6 % (37.0-47.0); Hemoglobin 9.1 g/dL (11.5-15.3); Lymphocytes # 1.9 10^3/uL (0.8-4.8); Lymphocytes % 33.7 %; Mean Corpuscular HGB Conc 30.7 g/dL (30.0-36.0); Mean Corpuscular Hemoglobin 33.8 pg (28.0-34.0); Mean Platelet Volume 10.8 fL (7.4-10.4); Monocytes # 0.9 10^3/uL (0.2-0.9); Neutrophils # 2.6 10^3/uL (1.8-7.7); Neutrophils % 46.7 %; Nucleated Red Blood Cells % 0 %; Platelet Count 171 10^3/cmm (130-400); Red Blood Count 2.69 10^6/uL (4.1-5.3); Red Cell Distribution Width 19.2 % (12.1-15.1); White Blood Count 5.7 10^3/uL (4.0-10.0)
[2019-04-27 21:04] LABS: Alanine Aminotransferase 32 U/L (0-33); Albumin Level 4.1 g/dL (3.5-5.2); Alkaline Phosphatase 174 IU/L (35-105); Anion Gap 16.7 (5-19); Aspartate Amino Transferase 38 U/L (0-32); Blood Urea Nitrogen 12 mg/dL (8-23); Calcium 9.5 mg/dL (8.5-10.5); Carbon Dioxide 27 mmol/L (22-29); Chloride 101 mmol/L (98-107); Globulin 3.1 g/dL (1.3-4.6); Glomerular Filtration Rate 63.4 mL/min (90-130); Glucose 86 mg/dL (65-115); Osmolality Calculated 285 mOsm/kg (285-295); Potassium 4.7 mmol/L (3.5-5.1); Sodium 140 mmol/L (136-145); Total Bilirubin 0.2 mg/dL (0.15-1.2); Total Protein 7.2 g/dL (6.6-8.7)
[2019-04-28] MEDS: sodium chloride 0.9% 250 ML 75 ML IV (10:00)
[2019-04-28] MEDS: diphenhydrAMINE 25 mg Capsule PO (10:00)
[2019-04-28] MEDS: acetaminophen 325 mg Tablet 650 MG PO (10:00)
[2019-04-28 10:59] LABS: Ferritin 400 ng/mL (15-150); Iron 83 ug/dL (37-145); Percent Saturation 28.4 % (20-50); Total Iron Binding Capacity 292 mcg/dl; Unsaturated Iron Binding 209 ug/dL (112-347)
[2019-04-28 11:15] LABS: Vitamin B12 720 pg/mL (232-1245)
--- NOTE | 2019-05-01 11:02 | ONC FU_ITS ---
Kerri Wolfe Patient Note Patient: Soledad Santamaria Unit #: [id number]: 1955 Dictated By: Liliana BernsteinDate of Visit: Apr 28, 2019 Onc MED Follow-Up/Prog Note Chief Complaint: Metastatic breast cancer History of Present Illness: Mrs. Santamaria is a 63-year-old female with history of left breast carcinoma with bone metastasis. She presented with an abnormal mammogram in 2010. She had apparently had detected an left-sided breast mass in late 2009. She was referred to Dr Gadiel Reed @ [facility] in [place], [place]. In April 2010, she underwent needle core biopsy of the left breast that did confirm invasive ductal carcinoma histological grade 2/3, ER+ ND+ and Her 2 [place] immunostain was 3+. She also had biopsy of a left axillary lymph node that was positive for invasive carcinoma with no lymphoid tissue identified. Her exam prior to chemo revealed a 3 cm mass in the extreme upper outer aspect of the left breast and multiple palpable enlarged lymph nodes-the largest was 2 cm and mobile.. Further workup included a breast MRI which did show biopsy proven malignancy in the left upper outer quadrant measuring 3.3 cm with associated axillary and subpectoral adenopathy. She had multiple satellite nodes with the largest measuring 7 cm. She did undergo MRI guided biopsy on June 08, 2010, which did report invasive cancer. She did have CT of the chest and a bone scan which did not show distant disease,. However, there was an enlarged lymph node in the subcutaneous tissues posterior to the left scapula and was biopsied on May 26, 2010 and was negative for malignancy. She under went neoadjuvant chemotherapy with weekly paclitaxel and Herceptin for 12 cycles from May 2010 to August of 2010 followed by FEC and Herceptin through October 2010. She completed 1 year of Herceptin in May 2011 during which time she was also taking an AI. She did have febrile neutropenia requiring admission in September 2010. She underwent bilateral mastectomies( for abnormal mammogram findings in the right breast) at [facility] in [facility] in November 2010. She did have post mastectomy radiation completed on 03/21/2011. She then underwent reconstruction with bilateral breast implants. Unfortunately in November 2011, the left implant became infected and had to be removed. During work up of the implant abnormality she has found to have a metastatic lesion in her left scapula. She did not have any problems until November of 2012 at which time she was having generalized bone pain, which she thought was a combination of Actonel and Anastrozole. The pain did not improve with stopping these medications. She was transitioned to single agent Tamoxifen. A bone scan revealed increased activity along the lateral margin of the left scapula suspicious of osseous metastatic disease when compared to the bone scan from November 2011. This lesion was biopsied on 12/01/2012 and revealed metastatic disease consistent with the breast primary. She did not have radiation at that time as she was not having significant pain. Mrs Santamaria was restaged and found to have diffuse pulmonary nodules and mediastinal lymphadenopathy and in November 2012, she was enrolled in a clinical trial with Herceptin. Perjeta and Letrozole. She had restaging in March 2014 that revealed slight progression of her pulmonary nodules which did not meet criteria for end point results of the clinical trial and was taken off the trial. Her bone scan was reported as stable. She transferred her care to [facility] in [place], [place] to the care of Dr Mehran Jacobson III in May 2014 due to the difficulty traveling to [facility]. The treatment of letrozole, Herceptin and Perjeta was continued until she disease progression and was changed to Kadcyla in February 2015 after restaging imaging revealed disease progression.And she could not tolerate and it was discontinued after 2 or 3 doses. INTERIM HISTORY: Mrs Santamaria was referred to us in October 2016 for followup at which time, Mrs Santamaria was having right upper back pain, left chest wall pain and right groin pain. She did have restaging with PET/CT on 11/03/2016. The PET/CT revealed multiple FGD avid osteolytic metastases in the left scapula, posterior left 9th rib, T10, T12 and the anterior right acetabulum. Multiple FDG avid metastatic pulmonary nodules represented by 1.9 cm nodule in the posterbasal segment of the right lower lobe with an SUV of 5 and a 1.7 cm nodule in the anterrobasal segment of the left lower lobe with an SUV of 5.1. No hepatic or adrenal metastases identified. Mrs Santamaria was referred to [facility] radiation oncology and underwent radiation to the right hip, left scapula, T10-T12 spine. Her pain resolved with the radiation, offered her palliative chemotherapy with Navelbine and Herceptin. She had agreed to a trial of the chemotherapy. Follow-up CT PET scan showed disease progression chemotherapy was discontinued and she was referred to radiation oncology for palliative radiation therapy. After this cycle of radiation therapy, she was started on lapatinib and Xeloda. She was tolerating it well but she was referred to radiation for C-spine metastases management. At that time her chemotherapy was put on hold. She developed right hip pain for which she received palliative radiation therapy to the 06/25/2017. The lapatinib and Xeloda was restarted but her follow-up tumor markers showed evidence of disease progression as the CA-27-29 gone up to 1346.70 on 08/20/2017 compared to 896.45 on 07/04/2017. Her chemotherapy with Xeloda and lapatinib was discontinued and decided to switch her to weekly Herceptin and Taxane , patient doesn't want take steroids so we recommended Herceptin and Abraxane combination. She did develop nausea vomiting abdominal pain with her last dose of Zometa and doesn't want to take Zometa anymore. We will switch her to Xgeva. There was delay in getting started with the Herceptin/Abraxane. She apparently had positive TB test which required workup and eventually was found to be a false positive. She began her first cycle of Herceptin and Abraxane on 10/09/2017.Last dose of Abraxane/Herceptin was given on 12/17/2017 and because of intolerance Abraxane was discontinued and last dose of Herceptin was given on 12/31/2017 Mrs Santamaria was seen by Dr. Ramirez, oncologist at [facility], for clinical trial and many clinical trials available but due to transportation and financial reasons, patient could not consider any of them. Palliative chemotherapy with carboplatin/gemcitabine/Herceptin or eribulin /Herceptin was recommended. Patient had bone scan and CT scan of chest abdomen done at [facility] which showed widespread metastatic disease. She began chemotherapy with weekly carboplatin, gemcitabine and trastuzumab on 04/15/2018 Follow-up CT PET scan done on 07/05/2018 showed improvement in hepatic metastatic disease since April 2017 study Mixed response to multiple bilateral pulmonary lesion Reactive marrow with splenic activity Osseous metastatic disease seen on April 2017 study is sclerotic and FDG negative Mrs Santamaria was admitted to hospital with abdominal pain and diagnosed with diverticulitis treated successfully with antibiotics and during this time, CT scans of chest abdomen pelvis were done on 07/30/2018 . The scans showed extensive pulmonary metastases and hepatic metastases and bone metastases, stable when compared with CT PET scan done in June 2018. She continued with treatment with carboplatin/gemcitabine/Herceptin. Follow-up CT PET scan done on 10/25/2018 showed mild improvement in hepatic, pulmonary and osseous metastatic disease. She has continued with chemotherapy with weekly Carboplatin, gemcitabine and Herceptin. She is receiving Neupogen support on and Saturday after her treatment on Saturday. She was getting the Neupogen at [place], [place]. She tolerated this plan well. She continues to have exertional shortness of breath but states it is no worse than what is has been but it is no better either. She denies any angina type pain but thinks she may have palpatations once in a while with the shortness of breath. She denies orthopnea. She denies any cough. She does have a very strong family history of CAD-both parents with her father's first DC in his 30's and both brothers have CAD. She has never had a diagnosis of CAD. She did have an echocardiogram on 11/07/2018 that reported EF of 60%-unchanged from previous echo. She reported she had a bug bite on her right breast reconstruction site around where the nipple should be. She states it presented as a big blister then it popped and then formed a scabbed area but no drainage. She had been applying triple antibotic ointment to it. She was referred to plastic surgery at [facility] and ulimately underwent right breast implant removal in December 2018, as per patient and there was no evidence of breast cancer in the specimen. Her chemotherapy was delayed because of dental procedure from 12/30/2018 to 02/04/2019. She resumed treatment on 02/04/2019. Echocardiogram done on 03/09/2019 showed Ejection fraction was 68%. Mrs Santamaria has now completed 11 cycles of Carboplatin/gemcitabine/Herceptin. She has continued denosumab as well. Mrs Santamaria underwent restaging PET/Ct on 04/21/2019. The PET/CT apparently was not compared to the scan she had on 10/25/2018. A review/comparison and an addended report has been requested. However in the interim we discussed the findings of her April 21, 2019 PET in relation to the October 25, 2018 PET. There were multiple pulmonary nodules present with the largest at the right base posteromedially measuring 4.9 x 2 point centimeters with a maximum SUV of 6.71. The results of that SUV on the October 25, 2018 report is somewhat blurry but looks to be 8.4 possibly 6.4 but indicates that the pulmonary nodules are relatively stable. The maximum SUV in the liver was 3.31 and on the October [address] Pitts did compare the reports and felt that Soledad had had some improvement in her overall disease. We of course are waiting for the final review and updated report. These findings have been discussed with Mrs Santamaria she understands that it will be compared with the one in October. Mrs Santamaria is here today for followup. She is due for cycle 12 day 1 Carboplatin/gemcitabine/Herceptin. She states she is more tired than last treatment but is still able to get her ADL's done without assistance. She states she has had a poking headache for the last 3-4 days in the top of her head. She states she did take 2 Excedrin yesterday and that eased the headache but did not relieve it completely. She has had some fuzzy vision but denies any amaurosis or double vision. She has had persistent right arm numbness and has an appointment with Dr Castro to for followup on that. She now has noticed right leg numbness. It comes and goes but seems to be lasting longer when it does come. She has had no TIA symptoms. She states she had a day last week where she slept all day and had a little nausea-the nausea meds relieved it. She states she had chills but no fever. She states it only lasted that one day. It has not recurred. She states otherwise she has felt ok. She is eating ok. She denies any changes in her bowel/bladder patterns. She has had no new pain. Her ECOG is 1. Past Medical History: Cancer (breast (left)) in 2008 Past Surgical History: Cholecystectomy Colonoscopy Hysterectomy Nisson wrap Right breast implant removed Tonsillectomy Flu vaccine in 2018 - Given in right deltoid/lc Flucevax in 2018 - right deltoid Portacatheter in 2017 Mastectomy in 2008 - bilateral October of 2015. She had an unknown rupture and repair Allergies: Codeine Sulfate Medications: Claritin 1 Tablet (of 10 mg) Oral daily Magnesium 1 Tablet Oral daily PRN Multivitamin Adults 1 Tablet Oral daily PRN Potassium 1 Tablet (of 99 mg) Oral daily PRN Prevacid 1 Capsule (of 30 mg) Capsule Delayed Release Oral daily Vitamin C 1 Tablet Oral daily PRN Family History: Ms. Santamaria's mother at age 89: heart attack. Ms. Santamaria's father is alive. Social History: Ms. Santamaria is and she is a disabled. Ms. Santamaria quit smoking 13 years ago but had smoked 1.0 pack/day for 33 years. She has no history of drinking. Ms. Santamaria reports the following support systems: lives with spouse, significant other, family, or friends, lives in own house, supportive family/friends willing to assist with needs, and adequate transportation available for expected visits. Her diet consists of regular meals. She indicates her activity level as: daily activities. Review Of Symptoms: Constitutional Denies fevers, chills, night sweats, or weight loss. States she feels pretty good but is having some increase in her fatigue. She also states she is having a headache on the very top of my head . She states it feels like something is poking her head. see above. Allergic/Immunologic No reactions. Eyes Denies significant visual changes. No diplopia. No amaurosis. ENMT Denies changes in hearing, sore throat, mouth sores, difficulty or changes in swallowing ability, and/or sinus drainage. Hematologic/Lymphatic Denies easy bruising or bleeding. The patient denies any tender or palpable lymph nodes. Respiratory dyspnea on exertion-short of breath-stable. Denies chest pain, cough or hemoptysis. Denies orthopnea. Cardiovascular Denies anginal chest pain, palpitations or orthopnea. Gastrointestinal Denies current nausea, vomiting, diarrhea, GI bleeding. She has intermittent constipation but has a regimen that works for her. Genitourinary (F) No hematuria, hesitancy, incontinence, vaginal bleeding, discharge or other problems with urination. Musculoskeletal Denies joint pain, swelling or redness. No decreased range of motion. Still having muscle cramps all over at times but not everyday-unchanged from last visit. Integumentary Denies chronic rashes, inflammation, ulcerations or skin changes. Right arm numbness is about the same but now has intermittent right leg numbness for the last couple of weeks Neurologic Denies headache, blurred vision, and no areas of focal weakness or numbness. Normal gait. No sensory problems. Psychiatric Denies insomnia, depression, estelita or mood swings. Vital Signs: Performed on Apr 28, 2019 09:02 Height - 67.00 in Weight - 152.8 lbs (LOW) BSA - 1.80 sq.m BMI - 23.93 Temperature - 97.7 F (LOW) Pulse - 78 /min Respiration - 16 /min BP - 138/62 mm(hg) O2 Sat - 97 % Pain - 7 Fatigue - 4,1 - No physically strenuous activity, but ambulatory and able to carry out light or sedentary work (e.g. office work, light house work). (ECOG) Physical Examination: Constitutional Alert, oriented, no acute distress. Skin pink, warm and dry. She is accompanied by her . Head Normocephalic; atraumatic. Eyes Conjunctivae and sclerae are clear and without icterus. Pupils are reactive and equal. ENMT No mouth sores or yeast. Neck Supple without masses or thyromegaly. No jugular venous distension. Hematologic/Lymphatic No petechiae or purpura. Respiratory Lungs are diminished bilaterally to auscultation without rhonchi or wheezing. Cardiovascular Regular rate and rhythm of heart without murmurs,clicks, gallops or rubs. Back/Spine Non-tender to palpation. Extremities No visible deformities, no cyanosis, clubbing or edema. Musculoskeletal No tenderness or swelling, normal range of motion without obvious weakness. Integumentary No rashes or lesions. Neurologic No sensory or motor deficits, normal cerebellar function, normal gait. Psychiatric Alert and oriented times three. Coherent speech. Verbalizes understanding of our discussions today. Laboratory:Test performed on Apr 27, 2019 12:10 Ferritin 400 ng/mL Iron 83 ug/dL Sodium 140 mmol/L Vitamin B12 720 pg/mL Iron Binding Capacity (TIBC) 292 mcg/dl Potassium 4.7 mmol/L % Iron Saturation 28.4 % Chloride 101 mmol/L CO2 27 mmol/L UIBC 209 ug/dL Anion Gap 16.7 BUN 12 mg/dL Creatinine 0.9 mg/dL Cr Clearance (Est) 70.7300 mL/min eGFR 63.4 mL/min Glucose 86 mg/dL Calcium 9.5 mg/dL Protein, Total 7.2 g/dL Albumin 4.1 g/dL Globulin 3.1 g/dL Bilirubin, Total 0.2 mg/dL ALT (SGPT) 32 U/L AST (SGOT) 38 U/L Alkaline Phosphatase 174 IU/L WBC 5.7 10 3/uL RBC 2.69 10 6/uL HGB 9.1 g/dL HCT 29.6 % MCV 110.0 fL MCH 33.8 pg MCHC 30.7 g/dL RDW 19.2 % Platelet Count 171 10 3/cmm MPV 10.8 fL Neutrophils 2.6 10 3/uL Lymphocytes 1.9 10 3/uL Monocytes 0.9 10 3/uL Eosinophils 0.2 10 3/uL Basophils 0.0 10 3/uL Neutrophil % 46.7 % Lymphocyte % 33.7 % Monocyte % 15.0 % Eosinophil % 3.5 % Basophils % 0.4 % Test performed on Mar 02, 2019 10:45 Vitamin D (25-Hydroxy) 28 ng/mL Test performed on Nov 10, 2018 07:00 Folate, Serum 10.5 ng/mL Impression: History of left breast cancer with metastases to left scapula status post bilateral mastectomy and left axillary lymph node dissection followed by radiation therapy to left chest wall and axilla in 2008 in [facility] in [facility] status post 1 year of Herceptin and paclitaxel and Arimidex for some time status post radiation therapy to left scapula biopsy-proven metastases Medical record obtained from [facility] [place], [place] and ER/ND positive HER-2/oneida overexpression positive it shows #1 presentation with abnormal screening mammogram in 2010. Patient underwent neoadjuvant chemotherapy with weekly paclitaxel and Herceptin for 12 cycle from May Treated with neoadjuvant chemotherapy FEC plus Herceptin from August 2010 through October 2010 In November 2010 she undergoes bilateral simple mastectomy with pathology demonstrating pT2 N2 disease Mrs Santamaria completed 1 year of adjuvant Herceptin therapy with adjuvant aromatase inhibitor In October 2011 patient transitioned to single agent tamoxifen due to poor tolerance of aromatase inhibitor therapy In October 2012 patient presented with left scapular pain imaging demonstrates abnormal bones lesion with biopsy notable for ER/ND positive HER-2/oneida overexpressing breast cancer, staging evaluation demonstrated bilateral pulmonary nodules with mediastinal lymphadenopathy On 12/16/2012 patient initiates letrozole plus Herceptin plus PERJETA on clinical trial On 02/22/2015 patient demonstrates subjective progression of disease within lungs On 02/25/2015 initiated on KADCYLA History of metastatic disease status post chemotherapy with different agents on multiple occasions most recent hormonal agent was letrozole 2.5 mg Elevated tumor markers [place] [address] scan of chest abdomen pelvis done on 10/10/2016 showed multiple bilateral pulmonary nodules consistent with metastatic disease multiple lytic lesion including posterior aspect of T12 vertebral body related dissection of much of right side of T10 vertebra and a large lytic lesion involving the roof of the right acetabulum and right iliac wing and focus of due to dissection lesion in right ischium Stable tiny low-attenuation abnormalities within the liver most likely consistent with multiple tiny cysts Pulmonary emphysema 8 ON 09/24/2016 CA 15.3 342.6 CA 27- 29 493.59 Upper mid back pain and right hip pain due to bone metastases questionable cord compression. She did have restaging with PET/CT on 11/03/2016. The PET/CT revealed multiple FGD avid osteolytic metastases in the left scapula, posterior left 9th rib, T10, T12 and the anterior right acetabulum. Multiple FDG avid metastatic pulmonary nodules represented by 1.9 cm nodule in the posterbasal segment of the right lower lobe with an SUV of 5 and a 1.7 cm nodule in the anterrobasal segment of the left lower lobe with an SUV of 5.1. No hepatic or adrenal metastases identified. Mrs Santamaria was referred to [facility] radiation oncology and underwent radiation to the right hip, left scapula, T10-T12 spine. Her pain resolved with the radiation. offered her palliative chemotherapy with Navelbine and Herceptin. She has agreed to a trial of the chemotherapy. CT scan of the chest August 2017 reported disease progression in the chest and evidence of possible hepatic involvement as well as possible metastatic site involving the left 12th rib. PET/CT scan done on 03/02/2017 showed multiple FDG avid metastatic pulmonary nodules represented by 1.9 cm nodule in the posterior basal segment of right lower lobe with SUV 9.6 compared to 5 on prior exam and a 1.7 cm nodule in the anterior basal segment of left lower lobe with SUV of 4.9 compared to 4.1 on prior exam. There were multiple new hepatic metastatic lesions represented by 1.7 cm nodule with SUV of 5.4 in the anterior superior segment right upper lobe. The PET/CT also reported bone metastasis the left anterior superior iliac spine posteriorly right sacroiliac and T10 T12 right acetabulum, left scapula and posterior left eighth rib. MRI scan of C-spine done on 02/28/2017 showed metastatic lesion of C2 vertebral body. Additional foci of metastatic disease may involve C6 and T1 vertebral bodies multiple disc bulging and spondylosis at C5/C6 and C6/C7 with mild anterior impingement Episode of rectal bleed/abdominal pain probably due to diverticulitis/diverticular bleed CT scan of chest abdomen pelvis done on 03/31/2017 showed pulmonary metastatic disease with variable size of some of the lesion since 10/30/2016 some lesions are smaller and other are larger hepatic and bone metastatic disease similar to the prior exam CT PET scan done on 04/27/2017 showed osseous lesion in left half of C1, and right T1 transverse process and left T1 pedicle, the L1 vertebral body, and L2 vertebral body shows no changes. However, pelvic metastatic disease has worsened with SUV 8.2 compared to 4.1 previously but she is status post radiation therapy to her pelvic bones., Multifocal hepatic metastatic disease is progressed , with SUV 9.8 compared to 5.4 earlier, bilateral hypermetabolic pulmonary nodules are unchanged and right hilar malignant node demonstrated progression Started on lapatinib and Xeloda on 06/08/2017 then it was placed on hold due to radiation therapy to left hip pain. Left posterior hip pain due to bone metastases status post radiation to right hip. Status post radiation therapy to C-spine could complete 9 out of 12 recommended doses because of severe radiation-induced pharyngitis , finished on 06/25/2017 Status palliative post radiation to hip, finished on 06/26/2007 Tumor marker CA-27-29 gone up to 1346.70 on 08/20/2017 from 896.45 on 07/04/2017 Lapatinib and Xeloda discontinued on 08/26/2017 and her treatment plan changed to weekly Herceptin and Taxane 3 weeks on and 1 week off with followup PET/CT after the third cycle. She had GI issues with Zometa ( an episode of nausea vomiting and abdominal pain) so she refuses to repeat the Zometa. She will be offered Xgeva 120 mg every month instead of the Zometa. She began her first cycle of Abraxane and Herceptin on 10/09/2017.Till 12/17/2017 at that time Abraxane was discontinued because of intolerance and last dose of Herceptin was given on 12/31/2017 and because of progressive weakness and fatigue this was also discontinued Patient was referred to [facility] she was seen by Dr. Ramirez on 03/31/2018, many clinical trials are available but due to transportation and financial reason patient could not consider any of them. So palliative chemotherapy with erbulin /Herceptin or carboplatin/gemcitabine/Herceptin was recommended. She did discontinue letrozole on 04/07/2018 and it was recommended that she start on weekly carboplatin AUC 2/gemcitabine 1000 mg/m2/Herceptin day 1, 8 and 15 every 28 days. Along with monthly Xgeva. She began her first cycle on 04/15/2018 .Follow-up CT PET scan done on 07/05/2018 showed hepatic metastatic disease has improved when compared with CT PET scan done in April 2017 and index lesion in the right hepatic dome has now significant central necrosis. There was a mixed response to multiple lung nodules, a left upper lobe nodules is unchanged in size at 1.6 cm but has SUV 3.8 compared to 5.6 before similar improvement is present in the posterior right lower lobe nodule and left lung base nodules. However there are new lesions in the right middle and medial right lobes, the 2 new lesions in the medial right lobe have SUV of 289 and right middle lobe measures 2.6 cm with SUV of 6.8. Multiple osseous lesion seen previously were sclerotic and FDG negative. Suspicious uptake is identified in left femoral neck and proximal right femur and L2. Mrs Santamaria continues with Carboplatin, gemcitabine and Herceptin and monthly Xgeva. She does require intermittent support with growth factors to keep her blood counts up in order to stay on the treatment plan. Follow-up CT PET scan done on 10/25/2018 showed multiple hepatic lesions are seen on prior studies on 07/05/2018 or minimally improved in size and now with improved SUV. Mild improvement in bilateral lung nodules both in size and SUV. Mild improvement is noted in multifocal osseous metastatic disease. Follow-up echocardiogram done on 11/07/2018 showed ejection fraction around 60%. She continued with weekly Carboplatin/gemcitabine and Herceptin. She has completed 11 full cycles and had restaging imaging on 04/21/2019. She had a PET/CT at [facility] on 04/21/2019. The PET/CT apparently was not compared to the scan she had on 10/25/2018. A review/comparison and an addended report has been requested. However in the interim we discussed the findings of her April 21, 2019 PET in relation to the October 25, 2018 PET. There were multiple pulmonary nodules present with the largest at the right base posteromedially measuring 4.9 x 2 point centimeters with a maximum SUV of 6.71. The results of that SUV on the October 25, 2018 report is somewhat blurry but looks to be 8.4 possibly 6.4 but indicates that the pulmonary nodules are relatively stable. The maximum SUV in the liver was 3.31 and on the October [address] Pitts did compare the reports and felt that Soledad had had some improvement in her overall disease. We of course are waiting for the final review and updated report. These findings have been discussed with Mrs Santamaria she understands that it will be compared with the one in October. Plan: 1. Proceed with cycle 12 carboplatin gemcitabine trastuzumab. 2. We will proceed with denosumab if timing is appropriate today if not will administer with next treatment in 2 weeks. (denosumab last given on 04/14/2019). 3. April 27, 2019 were reviewed in detail and discussed with and Mrs. Santamaria and a copy was given to them. WBC 5.7, hemoglobin 9.1, platelets 171,000 and her ANC is 2600. Potassium 4.7 creatinine 0.9 LFTs are normal alk phos is improved at 174. 4. We will plan to see her back in 2 weeks at which time she will be due for cycle 12-day 15 treatment. She will require CBC CMP, [id number] at that time. 5. I did request an MRI of the brain with contrast for evaluation of her headache with known metastatic breast cance. She also has right sided neuropathy symptoms that are unexplained. 6. Mrs. Santamaria instructed to contact us in the interim should questions or problems arise. 7. Her last echocardiogram was March 13, 2019 with ejection fraction around 68%. 8. PET/CT imaging obtained on 04/21/2019-not compared with PET/CT on 10/25/2018. Comparison has been requested with an updated report/impression. Signed By: Fam BernsteinNShakira-, AOCNP Kortney Pitts MD <<Signature on File>>
--- NOTE | 2019-05-07 09:02 | MR_ITS ---
WS: [id number] MRI HEAD WITH CONTRAST TECHNIQUE: Sagittal T1, T2 axial, T2 axial FLAIR, axial susceptibility weighted imaging, axial diffus ion weighted images, and coronal T2 images were obtained. Pre and post-T1 axial and post T1 coronal i mages. ADC and FSPGR images. CLINICAL INFORMATION: PERSISTENT HEADACHE;RT-SIDED NEUROPATHY;METASTATIC BREAST CA COMPARISON: MRI November 02, 2016 FINDINGS: No evidence restricted diffusion to suggest acute ischemia. Ventricular system and basal cisterns are patent. Mild small vessel changes. Mild parenchymal volume loss. Normal posterior fossa. Normal vasc ular flow voids at the skull base. No extra axial fluid collections. No evidence of mass or mass effe ct. Paranasal sinuses and mastoid air cells are well aerated. No hemosiderin on the susceptibility weighted images. No abnormal intracranial enhancement. Normal op tic chiasm and pituitary infundibulum. No evidence of enhancing intracranial metastatic disease. T2 h yperintense lesion involving the left aspect of the pituitary measuring 9 mm x 6 mm. Associated heterogeneous enhancement with asymmetric enlargement of the left aspect of the pituitary. This is new/progressed from 2017 and is suspicious for pituitary adenoma. Recommend correlation for pituitary function studies. Mild left to right mass effect on the pituitary infundibulum. Normal opti c chiasm. Contact of the left cavernous sinus without significant invasion. Normal Meckel's cave. Metastatic C2 vertebral body lesion today measures 10 mm progressed since 2017. MR/MR head wo/w con [id number] IMPRESSION: 1. No evidence of enhancing intracranial metastatic disease. 2. No restricted diffusion to suggest acute ischemia. 3. T2 hyperintense enhancing 9 x 6 mm intrapituitary lesion in the left aspect of the pituitary. Minimal dorsal pituitary convexity. Slight left to right mas s effect on the infundibulum. Normal optic chiasm. 4. Pituitary lesion abuts the left cavernous sinus. Normal Meckel's cave. Prim frances consideration is pituitary adenoma. Recommend correlation for pituitary fun ction studies. 5. Mild small vessel changes. Moderate parenchymal volume loss. 6. 10 mm metastatic C2 vertebral body lesion likely previously treated 7. Paranasal sinuses and mastoid air cells are well aerated.
[2019-05-12 14:12] LABS: Basophils % 0.5 %; Eosinophils # 0.2 10^3/uL (0.0-0.8); Eosinophils % 2.4 %; Hematocrit 30.8 % (37.0-47.0); Hemoglobin 9.4 g/dL (11.5-15.3); Lymphocytes # 1.9 10^3/uL (0.8-4.8); Lymphocytes % 30.8 %; Mean Corpuscular HGB Conc 30.5 g/dL (30.0-36.0); Mean Corpuscular Hemoglobin 33.3 pg (28.0-34.0); Mean Corpuscular Volume 109.2 fL (81-99); Mean Platelet Volume 10.6 fL (7.4-10.4); Monocytes # 0.9 10^3/uL (0.2-0.9); Monocytes % 14.6 %; Neutrophils # 3.2 10^3/uL (1.8-7.7); Neutrophils % 51.1 %; Nucleated Red Blood Cells % 0 %; Platelet Count 205 10^3/cmm (130-400); Red Blood Count 2.82 10^6/uL (4.1-5.3); Red Cell Distribution Width 19.6 % (12.1-15.1); White Blood Count 6.3 10^3/uL (4.0-10.0)
[2019-05-12 14:31] LABS: Alanine Aminotransferase 37 U/L (0-33); Alkaline Phosphatase 178 IU/L (35-105); Anion Gap 17.2 (5-19); Aspartate Amino Transferase 44 U/L (0-32); Blood Urea Nitrogen 13 mg/dL (8-23); Calcium 9.4 mg/dL (8.5-10.5); Carbon Dioxide 25 mmol/L (22-29); Chloride 100 mmol/L (98-107); Glomerular Filtration Rate 72.7 mL/min (90-130); Glucose 84 mg/dL (65-115); Osmolality Calculated 281 mOsm/kg (285-295); Potassium 4.2 mmol/L (3.5-5.1); Sodium 138 mmol/L (136-145); Total Bilirubin 0.3 mg/dL (0.15-1.2)
[2019-05-13] MEDS: sodium chloride 0.9% 250 ML 75 ML IV (10:35)
[2019-05-13] MEDS: denosumab 120 mg SDV SUBCUT (10:36)
[2019-05-13] MEDS: acetaminophen 325 mg Tablet 650 MG PO (10:40)
[2019-05-13] MEDS: diphenhydrAMINE 25 mg Capsule PO (11:40)
--- NOTE | 2019-05-15 09:36 | ONC FU_ITS ---
Dr. Pitts follow up note Patient: Soledad Santamaria Unit #: [id number]: 1955 Dicatated By: Kortney Pitts M.D.Date of Visit:May 13, 2019 Onc Med Follow-up/Prog Note History of Present Illness: Mrs. Santamaria is a 63-year-old female with history of left breast carcinoma with bone metastasis. She presented with an abnormal mammogram in 2010. She had apparently had detected an left-sided breast mass in late 2009. She was referred to Dr Gadiel Reed @ [facility] in [place], [place]. In April 2010, she underwent needle core biopsy of the left breast that did confirm invasive ductal carcinoma histological grade 2/3, ER+ IL+ and Her 2 [place] immunostain was 3+. She also had biopsy of a left axillary lymph node that was positive for invasive carcinoma with no lymphoid tissue identified. Her exam prior to chemo revealed a 3 cm mass in the extreme upper outer aspect of the left breast and multiple palpable enlarged lymph nodes-the largest was 2 cm and mobile.. Further workup included a breast MRI which did show biopsy proven malignancy in the left upper outer quadrant measuring 3.3 cm with associated axillary and subpectoral adenopathy. She had multiple satellite nodes with the largest measuring 7 cm. She did undergo MRI guided biopsy on June 08, 2010, which did report invasive cancer. She did have CT of the chest and a bone scan which did not show distant disease,. However, there was an enlarged lymph node in the subcutaneous tissues posterior to the left scapula and was biopsied on May 26, 2010 and was negative for malignancy. She under went neoadjuvant chemotherapy with weekly paclitaxel and Herceptin for 12 cycles from May 2010 to August of 2010 followed by FEC and Herceptin through October 2010. She completed 1 year of Herceptin in May 2011 during which time she was also taking an AI. She did have febrile neutropenia requiring admission in September 2010. She underwent bilateral mastectomies( for abnormal mammogram findings in the right breast) at [facility] in [facility] in November 2010. She did have post mastectomy radiation completed on 03/21/2011. She then underwent reconstruction with bilateral breast implants. Unfortunately in November 2011, the left implant became infected and had to be removed. During work up of the implant abnormality she has found to have a metastatic lesion in her left scapula. She did not have any problems until November of 2012 at which time she was having generalized bone pain, which she thought was a combination of Actonel and Anastrozole. The pain did not improve with stopping these medications. She was transitioned to single agent Tamoxifen. A bone scan revealed increased activity along the lateral margin of the left scapula suspicious of osseous metastatic disease when compared to the bone scan from November 2011. This lesion was biopsied on 12/01/2012 and revealed metastatic disease consistent with the breast primary. She did not have radiation at that time as she was not having significant pain. Mrs Santamaria was restaged and found to have diffuse pulmonary nodules and mediastinal lymphadenopathy and in November 2012, she was enrolled in a clinical trial with Herceptin. Perjeta and Letrozole. She had restaging in March 2014 that revealed slight progression of her pulmonary nodules which did not meet criteria for end point results of the clinical trial and was taken off the trial. Her bone scan was reported as stable. She transferred her care to [facility] in [place], [place] to the care of Dr Mehran Jacobson III in May 2014 due to the difficulty traveling to [facility]. The treatment of letrozole, Herceptin and Perjeta was continued until she disease progression and was changed to Kadcyla in February 2015 after restaging imaging revealed disease progression.And she could not tolerate and it was discontinued after 2 or 3 doses. INTERIM HISTORY: Mrs Santamaria was referred to us in October 2016 for followup at which time, Mrs Santamaria was having right upper back pain, left chest wall pain and right groin pain. She did have restaging with PET/CT on 11/03/2016. The PET/CT revealed multiple FGD avid osteolytic metastases in the left scapula, posterior left 9th rib, T10, T12 and the anterior right acetabulum. Multiple FDG avid metastatic pulmonary nodules represented by 1.9 cm nodule in the posterbasal segment of the right lower lobe with an SUV of 5 and a 1.7 cm nodule in the anterrobasal segment of the left lower lobe with an SUV of 5.1. No hepatic or adrenal metastases identified. Mrs Santamaria was referred to [facility] [place]ology and underwent radiation to the right hip, left scapula, T10-T12 spine. Her pain resolved with the radiation, offered her palliative chemotherapy with Navelbine and Herceptin. She had agreed to a trial of the chemotherapy. Follow-up CT PET scan showed disease progression chemotherapy was discontinued and she was referred to radiation oncology for palliative radiation therapy. After this cycle of radiation therapy, she was started on lapatinib and Xeloda. She was tolerating it well but she was referred to radiation for C-spine metastases management. At that time her chemotherapy was put on hold. She developed right hip pain for which she received palliative radiation therapy to the 06/25/2017. The lapatinib and Xeloda was restarted but her follow-up tumor markers showed evidence of disease progression as the CA-27-29 gone up to 1346.70 on 08/20/2017 compared to 896.45 on 07/04/2017. Her chemotherapy with Xeloda and lapatinib was discontinued and decided to switch her to weekly Herceptin and Taxane , patient doesn't want take steroids so we recommended Herceptin and Abraxane combination. She did develop nausea vomiting abdominal pain with her last dose of Zometa and doesn't want to take Zometa anymore. We will switch her to Xgeva. There was delay in getting started with the Herceptin/Abraxane. She apparently had positive TB test which required workup and eventually was found to be a false positive. She began her first cycle of Herceptin and Abraxane on 10/09/2017.Last dose of Abraxane/Herceptin was given on 12/17/2017 and because of intolerance Abraxane was discontinued and last dose of Herceptin was given on 12/31/2017 Mrs Santamaria was seen by Dr. Ramirez, oncologist at [facility], for clinical trial and many clinical trials available but due to transportation and financial reasons, patient could not consider any of them. Palliative chemotherapy with carboplatin/gemcitabine/Herceptin or eribulin /Herceptin was recommended. Patient had bone scan and CT scan of chest abdomen done at [facility] which showed widespread metastatic disease. She began chemotherapy with weekly carboplatin, gemcitabine and trastuzumab on 04/15/2018 Follow-up CT PET scan done on 07/05/2018 showed improvement in hepatic metastatic disease since April 2017 study Mixed response to multiple bilateral pulmonary lesion Reactive marrow with splenic activity Osseous metastatic disease seen on April 2017 study is sclerotic and FDG negative Mrs Santamaria was admitted to hospital with abdominal pain and diagnosed with diverticulitis treated successfully with antibiotics and during this time, CT scans of chest abdomen pelvis were done on 07/30/2018 . The scans showed extensive pulmonary metastases and hepatic metastases and bone metastases, stable when compared with CT PET scan done in June 2018. She continued with treatment with carboplatin/gemcitabine/Herceptin. Follow-up CT PET scan done on 10/25/2018 showed mild improvement in hepatic, pulmonary and osseous metastatic disease. She has continued with chemotherapy with weekly Carboplatin, gemcitabine and Herceptin. She is receiving Neupogen support on and Saturday after her treatment on Saturday. She was getting the Neupogen at [place], [place]. She tolerated this plan well. She continues to have exertional shortness of breath but states it is no worse than what is has been but it is no better either. She denies any angina type pain but thinks she may have palpatations once in a while with the shortness of breath. She denies orthopnea. She denies any cough. She does have a very strong family history of CAD-both parents with her father's first MT in his 30's and both brothers have CAD. She has never had a diagnosis of CAD. She did have an echocardiogram on 11/07/2018 that reported EF of 60%-unchanged from previous echo. She reported she had a bug bite on her right breast reconstruction site around where the nipple should be. She states it presented as a big blister then it popped and then formed a scabbed area but no drainage. She had been applying triple antibotic ointment to it. She was referred to plastic surgery at [facility] and ulimately underwent right breast implant removal in December 2018, as per patient and there was no evidence of breast cancer in the specimen. Her chemotherapy was delayed because of dental procedure from 12/30/2018 to 02/04/2019. She resumed treatment on 02/04/2019. Echocardiogram done on 03/09/2019 showed Ejection fraction was 68%. Mrs Santamaria has now completed 11 cycles of Carboplatin/gemcitabine/Herceptin. She has continued denosumab as well. Mrs Santamaria underwent restaging PET/Ct on 04/21/2019. The PET/CT apparently was not compared to the scan she had on 10/25/2018. A review/comparison and an addended report has been requested. However in the interim we discussed the findings of her April 21, 2019 PET in relation to the October 25, 2018 PET. There were multiple pulmonary nodules present with the largest at the right base posteromedially measuring 4.9 x 2 point centimeters with a maximum SUV of 6.71. The results of that SUV on the October 25, 2018 report is somewhat blurry but looks to be 8.4 possibly 6.4 but indicates that the pulmonary nodules are relatively stable. The maximum SUV in the liver was 3.31 and on the October 2018 scan was 5.1. did compare the reports and felt that Soledad had had some improvement in her overall disease. We of course are waiting for the final review and updated report. These findings have been discussed with Mrs Santamaria she understands that it will be compared with the one in October. She has had persistent right arm numbness and has an appointment with Dr Matthew soto for followup on that. She now has noticed right leg numbness. It comes and goes but seems to be lasting longer when it does come. She has had no TIA symptoms. MRI scan of the head done on 05/07/2019 showed no evidence of brain metastases. Due to hyperintense enhancing 9 x 6 mm intrapituitary lesion in the left aspect of pitiutary. Normal optic chasm. Slight [id number] mass effect on the infundibulum. Consistent with a pituitary adenoma. 10 mm metastatic C2 vertebral body lesions likely previously treated. Came for follow-up, denies any specific complaints, no fever or chills, no nausea or vomiting, no diarrhea constipation, stable right arm numbness. Off and on right leg numbness. Awaiting neurology evaluation. MRI scan of the head done on 05/07/2019 showed no evidence of brain metastases. Due to hyperintense enhancing 9 x 6 mm intrapituitary lesion in the left aspect of pitiutary. Normal optic chasm. Slight [id number]-[id number] mass effect on the infundibulum. Consistent with a pituitary adenoma. 10 mm metastatic C2 vertebral body lesions likely previously treated. Medications: Claritin 1 Tablet (of 10 mg) Oral daily, Magnesium 1 Tablet Oral daily PRN, Multivitamin Adults 1 Tablet Oral daily PRN, Potassium 1 Tablet (of 99 mg) Oral daily PRN, Prevacid 1 Capsule (of 30 mg) Capsule Delayed Release Oral daily, Vitamin C 1 Tablet Oral daily PRN Allergies: Codeine Sulfate Review of Systems: Constitutional - Appetite is fair, weight is stable. Energy level is good, ENMT - No sinus congestion/drainage. No mouth sores. No sore throat or difficulty swallowing, Hematologic/Lymphatic - No abnormal bruising or bleeding, Respiratory - No dyspnea on exertion, chest pain, cough or hemoptysis, Cardiovascular - No anginal chest pain, palpitations or orthopnea, Gastrointestinal - No nausea, vomiting, diarrhea, GI bleeding, or constipation. No change in bowel habits, no heartburn or early satiety, Genitourinary (F) - No hematuria, dysuria, increased frequency, urgency, hesitancy or incontinence, Musculoskeletal - Positive for back pain, Neurologic - No dizziness, or numbness/tingling, Psychiatric - No anxiety or depression. No insomnia. Vital Signs: Performed on May 13, 2019 09:10 Height - 67.00 in Weight - 152.0 lbs (LOW) BSA - 1.80 sq.m BMI - 23.81 Temperature - 98.1 F (LOW) Pulse - 85 /min Respiration - 24 /min BP - 124/70 mm(hg) O2 Sat - 96 % Pain - 8 Performance Status: 1 - No physically strenuous activity, but ambulatory and able to carry out light or sedentary work (e.g. office work, light house work). (ECOG) Physical Examination: Respiratory - Lungs are clear to auscultation without rhonchi or wheezing, Cardiovascular - Regular rate and rhythm of heart, Extremities - no edema. Lab/Imaging: Test performed on Apr 27, 2019 12:10 Ferritin 400 ng/mL Iron 83 ug/dL Sodium 140 mmol/L Vitamin B12 720 pg/mL Iron Binding Capacity (TIBC) 292 mcg/dl Potassium 4.7 mmol/L % Iron Saturation 28.4 % Chloride 101 mmol/L CO2 27 mmol/L UIBC 209 ug/dL Anion Gap 16.7 BUN 12 mg/dL Creatinine 0.9 mg/dL Cr Clearance (Est) 70.7300 mL/min eGFR 63.4 mL/min Glucose 86 mg/dL Calcium 9.5 mg/dL Protein, Total 7.2 g/dL Albumin 4.1 g/dL Globulin 3.1 g/dL Bilirubin, Total 0.2 mg/dL ALT (SGPT) 32 U/L AST (SGOT) 38 U/L Alkaline Phosphatase 174 IU/L WBC 5.7 10 3/uL RBC 2.69 10 6/uL HGB 9.1 g/dL HCT 29.6 % MCV 110.0 fL MCH 33.8 pg MCHC 30.7 g/dL RDW 19.2 % Platelet Count 171 10 3/cmm MPV 10.8 fL Neutrophils 2.6 10 3/uL Lymphocytes 1.9 10 3/uL Monocytes 0.9 10 3/uL Eosinophils 0.2 10 3/uL Basophils 0.0 10 3/uL Neutrophil % 46.7 % Lymphocyte % 33.7 % Monocyte % 15.0 % Eosinophil % 3.5 % Basophils % 0.4 % Test performed on Mar 02, 2019 10:45 Vitamin D (25-Hydroxy) 28 ng/mL Impression: History of left breast cancer with metastases to left scapula status post bilateral mastectomy and left axillary lymph node dissection followed by radiation therapy to left chest wall and axilla in 2008 in [facility] in [facility] status post 1 year of Herceptin and paclitaxel and Arimidex for some time status post radiation therapy to left scapula biopsy-proven metastases Medical record obtained from [facility] [place], [place] and ER/IL positive HER-2/oneida overexpression positive it shows #1 presentation with abnormal screening mammogram in 2010. Patient underwent neoadjuvant chemotherapy with weekly paclitaxel and Herceptin for 12 cycle from May Treated with neoadjuvant chemotherapy FEC plus Herceptin from August 2010 through October 2010 In November 2010 she undergoes bilateral simple mastectomy with pathology demonstrating pT2 N2 disease Mrs Santamaria completed 1 year of adjuvant Herceptin therapy with adjuvant aromatase inhibitor In October 2011 patient transitioned to single agent tamoxifen due to poor tolerance of aromatase inhibitor therapy In October 2012 patient presented with left scapular pain imaging demonstrates abnormal bones lesion with biopsy notable for ER/IL positive HER-2/oneida overexpressing breast cancer, staging evaluation demonstrated bilateral pulmonary nodules with mediastinal lymphadenopathy On 12/16/2012 patient initiates letrozole plus Herceptin plus PERJETA on clinical trial On 02/22/2015 patient demonstrates subjective progression of disease within lungs On 02/25/2015 initiated on KADCYLA History of metastatic disease status post chemotherapy with different agents on multiple occasions most recent hormonal agent was letrozole 2.5 mg Elevated tumor markers [place] [address] scan of chest abdomen pelvis done on 10/10/2016 showed multiple bilateral pulmonary nodules consistent with metastatic disease multiple lytic lesion including posterior aspect of T12 vertebral body related dissection of much of right side of T10 vertebra and a large lytic lesion involving the roof of the right acetabulum and right iliac wing and focus of due to dissection lesion in right ischium Stable tiny low-attenuation abnormalities within the liver most likely consistent with multiple tiny cysts Pulmonary emphysema 8 ON 09/24/2016 CA 15.3 342.6 CA 27- 29 493.59 Upper mid back pain and right hip pain due to bone metastases questionable cord compression. She did have restaging with PET/CT on 11/03/2016. The PET/CT revealed multiple FGD avid osteolytic metastases in the left scapula, posterior left 9th rib, T10, T12 and the anterior right acetabulum. Multiple FDG avid metastatic pulmonary nodules represented by 1.9 cm nodule in the posterbasal segment of the right lower lobe with an SUV of 5 and a 1.7 cm nodule in the anterrobasal segment of the left lower lobe with an SUV of 5.1. No hepatic or adrenal metastases identified. Mrs Santamaria was referred to [facility] [place] and underwent radiation to the right hip, left scapula, T10-T12 spine. Her pain resolved with the radiation. offered her palliative chemotherapy with Navelbine and Herceptin. She has agreed to a trial of the chemotherapy. CT scan of the chest August 2017 reported disease progression in the chest and evidence of possible hepatic involvement as well as possible metastatic site involving the left 12th rib. PET/CT scan done on 03/02/2017 showed multiple FDG avid metastatic pulmonary nodules represented by 1.9 cm nodule in the posterior basal segment of right lower lobe with SUV 9.6 compared to 5 on prior exam and a 1.7 cm nodule in the anterior basal segment of left lower lobe with SUV of 4.9 compared to 4.1 on prior exam. There were multiple new hepatic metastatic lesions represented by 1.7 cm nodule with SUV of 5.4 in the anterior superior segment right upper lobe. The PET/CT also reported bone metastasis the left anterior superior iliac spine posteriorly right sacroiliac and T10 T12 right acetabulum, left scapula and posterior left eighth rib. MRI scan of C-spine done on 02/28/2017 showed metastatic lesion of C2 vertebral body. Additional foci of metastatic disease may involve C6 and T1 vertebral bodies multiple disc bulging and spondylosis at C5/C6 and C6/C7 with mild anterior impingement Episode of rectal bleed/abdominal pain probably due to diverticulitis/diverticular bleed CT scan of chest abdomen pelvis done on 03/31/2017 showed pulmonary metastatic disease with variable size of some of the lesion since 10/30/2016 some lesions are smaller and other are larger hepatic and bone metastatic disease similar to the prior exam CT PET scan done on 04/27/2017 showed osseous lesion in left half of C1, and right T1 transverse process and left T1 pedicle, the L1 vertebral body, and L2 vertebral body shows no changes. However, pelvic metastatic disease has worsened with SUV 8.2 compared to 4.1 previously but she is status post radiation therapy to her pelvic bones., Multifocal hepatic metastatic disease is progressed , with SUV 9.8 compared to 5.4 earlier, bilateral hypermetabolic pulmonary nodules are unchanged and right hilar malignant node demonstrated progression Started on lapatinib and Xeloda on 06/08/2017 then it was placed on hold due to radiation therapy to left hip pain. Left posterior hip pain due to bone metastases status post radiation to right hip. Status post radiation therapy to C-spine could complete 9 out of 12 recommended doses because of severe radiation-induced pharyngitis , finished on 06/25/2017 Status palliative post radiation to hip, finished on 06/26/2007 Tumor marker CA-27-29 gone up to 1346.70 on 08/20/2017 from 896.45 on 07/04/2017 Lapatinib and Xeloda discontinued on 08/26/2017 and her treatment plan changed to weekly Herceptin and Taxane 3 weeks on and 1 week off with followup PET/CT after the third cycle. She had GI issues with Zometa ( an episode of nausea vomiting and abdominal pain) so she refuses to repeat the Zometa. She will be offered Xgeva 120 mg every month instead of the Zometa. She began her first cycle of Abraxane and Herceptin on 10/09/2017.Till 12/17/2017 at that time Abraxane was discontinued because of intolerance and last dose of Herceptin was given on 12/31/2017 and because of progressive weakness and fatigue this was also discontinued Patient was referred to [facility] she was seen by Dr. Ramirez on 03/31/2018, many clinical trials are available but due to transportation and financial reason patient could not consider any of them. So palliative chemotherapy with erbulin /Herceptin or carboplatin/gemcitabine/Herceptin was recommended. She did discontinue letrozole on 04/07/2018 and it was recommended that she start on weekly carboplatin AUC 2/gemcitabine 1000 mg/m2/Herceptin day 1, 8 and 15 every 28 days. Along with monthly Xgeva. She began her first cycle on 04/15/2018 .Follow-up CT PET scan done on 07/05/2018 showed hepatic metastatic disease has improved when compared with CT PET scan done in April 2017 and index lesion in the right hepatic dome has now significant central necrosis. There was a mixed response to multiple lung nodules, a left upper lobe nodules is unchanged in size at 1.6 cm but has SUV 3.8 compared to 5.6 before similar improvement is present in the posterior right lower lobe nodule and left lung base nodules. However there are new lesions in the right middle and medial right lobes, the 2 new lesions in the medial right lobe have SUV of 289 and right middle lobe measures 2.6 cm with SUV of 6.8. Multiple osseous lesion seen previously were sclerotic and FDG negative. Suspicious uptake is identified in left femoral neck and proximal right femur and L2. Mrs Santamaria continues with Carboplatin, gemcitabine and Herceptin and monthly Xgeva. She does require intermittent support with growth factors to keep her blood counts up in order to stay on the treatment plan. Follow-up CT PET scan done on 10/25/2018 showed multiple hepatic lesions are seen on prior studies on 07/05/2018 or minimally improved in size and now with improved SUV. Mild improvement in bilateral lung nodules both in size and SUV. Mild improvement is noted in multifocal osseous metastatic disease. Follow-up echocardiogram done on 11/07/2018 showed ejection fraction around 60%. She continued with weekly Carboplatin/gemcitabine and Herceptin. She has completed 11 full cycles and had restaging imaging on 04/21/2019. She had a PET/CT at [facility] on 04/21/2019. The PET/CT apparently was not compared to the scan she had on 10/25/2018. A review/comparison and an addended report has been requested. However in the interim we discussed the findings of her April 21, 2019 PET in relation to the October 25, 2018 PET. There were multiple pulmonary nodules present with the largest at the right base posteromedially measuring 4.9 x 2 point centimeters with a maximum SUV of 6.71. The results of that SUV on the October 25, 2018 report is somewhat blurry but looks to be 8.4 possibly 6.4 but indicates that the pulmonary nodules are relatively stable. The maximum SUV in the liver was 3.31 and on the October [address] Pitts did compare the reports and felt that Soledad had had some improvement in her overall disease. We of course are waiting for the final review and updated report. These findings have been discussed with Mrs Santamaria she understands that it will be compared with the one in October. Plan: Discussed with patient regarding her labs white blood count 6.3 hemoglobin 9.4 crit 30.8 platelets 205,000 CMP within normal limits and MRI scan of head done recently showed no evidence of brain metastases Clinically, patient is doing reasonably well, tolerating palliative systemic therapy with carboplatin/gemcitabine/Herceptin well but with expected side effects e.g. persistent markedly progressive anemia, generalized weakness and fatigue. We'll proceed with the next biweekly dose of carvedilol/gemcitabine/Herceptin today and then she will clinic in 2 weeks with CBC CMP if reasonable, for chemotherapy. Signed By: Kortney Pitts M.D. <<Signature on File>>
== END 2019-05-19 23:59 | disposition home or self-care (01) ==
LOC: ONCMED 05:40
PROVIDERS: Nurse Practitioner; Family Provider Nurse Practitioner Family; PCP Nurse Practitioner Family; Visit Provider Internal Medicine Hematology & Oncology
DX: Z51.12 Encounter for antineoplastic immunotherapy (principal); Z51.11 Encounter for antineoplastic chemotherapy; C50.412 Malignant neoplasm of upper-outer quadrant of left female breast; C79.51 Secondary malignant neoplasm of bone; C78.01 Secondary malignant neoplasm of right lung; C78.02 Secondary malignant neoplasm of left lung; C78.7 Secondary malignant neoplasm of liver and intrahepatic bile duct; Z45.2 Encounter for adjustment and management of vascular access device; D64.9 Anemia, unspecified; R20.0 Anesthesia of skin; D35.2 Benign neoplasm of pituitary gland; J43.9 Emphysema, unspecified; Z92.23 Personal history of estrogen therapy; Z17.0 Estrogen receptor positive status [ER+]; Z90.13 Acquired absence of bilateral breasts and nipples; Z92.3 Personal history of irradiation
CPT/HCPCS: 36415; 70553; 80053; 82607; 82728; 83540; 83550; 85025; 96367; 96372; 96413; 96417; 96523; 99214; A9579; J0897; J1100; J2469; J7040; J7050; J9045; J9201; J9355

== ENCOUNTER 2019-06-09 06:44 | Outpatient (RCR) | payer MEDICARE, SELFPAY ==
[2019-05-25 19:36] LABS: Basophils % 0.5 %; Eosinophils # 0.2 10^3/uL (0.0-0.8); Eosinophils % 3.5 %; Hematocrit 31.7 % (37.0-47.0); Hemoglobin 9.6 g/dL (11.5-15.3); Lymphocytes % 31.3 %; Mean Corpuscular HGB Conc 30.3 g/dL (30.0-36.0); Mean Corpuscular Hemoglobin 33.6 pg (28.0-34.0); Mean Corpuscular Volume 110.8 fL (81-99); Mean Platelet Volume 10.8 fL (7.4-10.4); Monocytes # 1.4 10^3/uL (0.2-0.9); Monocytes % 21.8 %; Neutrophils # 2.7 10^3/uL (1.8-7.7); Neutrophils % 42.6 %; Nucleated Red Blood Cells % 0 %; Platelet Count 171 10^3/cmm (130-400); Red Blood Count 2.86 10^6/uL (4.1-5.3); Red Cell Distribution Width 19.3 % (12.1-15.1); White Blood Count 6.3 10^3/uL (4.0-10.0)
[2019-05-25 19:53] LABS: Alanine Aminotransferase 35 U/L (0-33); Albumin Level 4.4 g/dL (3.5-5.2); Alkaline Phosphatase 196 IU/L (35-105); Anion Gap 15.8 (5-19); Aspartate Amino Transferase 48 U/L (0-32); Blood Urea Nitrogen 10 mg/dL (8-23); Calcium 9.7 mg/dL (8.5-10.5); Carbon Dioxide 25 mmol/L (22-29); Chloride 102 mmol/L (98-107); Globulin 3.3 g/dL (1.3-4.6); Glomerular Filtration Rate 84.8 mL/min (90-130); Glucose 53 mg/dL (65-115); Osmolality Calculated 281 mOsm/kg (285-295); Potassium 3.8 mmol/L (3.5-5.1); Sodium 139 mmol/L (136-145); Total Bilirubin 0.4 mg/dL (0.15-1.2); Total Protein 7.7 g/dL (6.6-8.7)
--- NOTE | 2019-05-26 13:33 | ONC FU_ITS ---
Dr. Pitts follow up note Patient: Soledad Santamaria Unit #: [id number]: 1955 Dicatated By: Kortney Pitts M.D.Date of Visit:May 26, 2019 Onc Med Follow-up/Prog Note History of Present Illness: Mrs. Santamaria is a 63-year-old female with history of left breast carcinoma with bone metastasis. She presented with an abnormal mammogram in 2010. She had apparently had detected an left-sided breast mass in late 2009. She was referred to Dr Gadiel Reed @ [facility] in [place], [place]. In April 2010, she underwent needle core biopsy of the left breast that did confirm invasive ductal carcinoma histological grade 2/3, ER+ W[place]+ and Her 2 [place] immunostain was 3+. She also had biopsy of a left axillary lymph node that was positive for invasive carcinoma with no lymphoid tissue identified. Her exam prior to chemo revealed a 3 cm mass in the extreme upper outer aspect of the left breast and multiple palpable enlarged lymph nodes-the largest was 2 cm and mobile.. Further workup included a breast MRI which did show biopsy proven malignancy in the left upper outer quadrant measuring 3.3 cm with associated axillary and subpectoral adenopathy. She had multiple satellite nodes with the largest measuring 7 cm. She did undergo MRI guided biopsy on June 08, 2010, which did report invasive cancer. She did have CT of the chest and a bone scan which did not show distant disease,. However, there was an enlarged lymph node in the subcutaneous tissues posterior to the left scapula and was biopsied on May 26, 2010 and was negative for malignancy. She under went neoadjuvant chemotherapy with weekly paclitaxel and Herceptin for 12 cycles from May 2010 to August of 2010 followed by FEC and Herceptin through October 2010. She completed 1 year of Herceptin in May 2011 during which time she was also taking an AI. She did have febrile neutropenia requiring admission in September 2010. She underwent bilateral mastectomies( for abnormal mammogram findings in the right breast) at [facility] in [facility] in November 2010. She did have post mastectomy radiation completed on 03/21/2011. She then underwent reconstruction with bilateral breast implants. Unfortunately in November 2011, the left implant became infected and had to be removed. During work up of the implant abnormality she has found to have a metastatic lesion in her left scapula. She did not have any problems until November of 2012 at which time she was having generalized bone pain, which she thought was a combination of Actonel and Anastrozole. The pain did not improve with stopping these medications. She was transitioned to single agent Tamoxifen. A bone scan revealed increased activity along the lateral margin of the left scapula suspicious of osseous metastatic disease when compared to the bone scan from November 2011. This lesion was biopsied on 12/01/2012 and revealed metastatic disease consistent with the breast primary. She did not have radiation at that time as she was not having significant pain. Mrs Santamaria was restaged and found to have diffuse pulmonary nodules and mediastinal lymphadenopathy and in November 2012, she was enrolled in a clinical trial with Herceptin. Perjeta and Letrozole. She had restaging in March 2014 that revealed slight progression of her pulmonary nodules which did not meet criteria for end point results of the clinical trial and was taken off the trial. Her bone scan was reported as stable. She transferred her care to [facility] in [place], [place] to the care of Dr Mehran Jacobson III in May 2014 due to the difficulty traveling to [facility]. The treatment of letrozole, Herceptin and Perjeta was continued until she disease progression and was changed to Kadcyla in February 2015 after restaging imaging revealed disease progression.And she could not tolerate and it was discontinued after 2 or 3 doses. INTERIM HISTORY: Mrs Santamaria was referred to us in October 2016 for followup at which time, Mrs Santamaria was having right upper back pain, left chest wall pain and right groin pain. She did have restaging with PET/CT on 11/03/2016. The PET/CT revealed multiple FGD avid osteolytic metastases in the left scapula, posterior left 9th rib, T10, T12 and the anterior right acetabulum. Multiple FDG avid metastatic pulmonary nodules represented by 1.9 cm nodule in the posterbasal segment of the right lower lobe with an SUV of 5 and a 1.7 cm nodule in the anterrobasal segment of the left lower lobe with an SUV of 5.1. No hepatic or adrenal metastases identified. Mrs Santamaria was referred to [facility] radiation oncology and underwent radiation to the right hip, left scapula, T10-T12 spine. Her pain resolved with the radiation, offered her palliative chemotherapy with Navelbine and Herceptin. She had agreed to a trial of the chemotherapy. Follow-up CT PET scan showed disease progression chemotherapy was discontinued and she was referred to radiation oncology for palliative radiation therapy. After this cycle of radiation therapy, she was started on lapatinib and Xeloda. She was tolerating it well but she was referred to radiation for C-spine metastases management. At that time her chemotherapy was put on hold. She developed right hip pain for which she received palliative radiation therapy to the 06/25/2017. The lapatinib and Xeloda was restarted but her follow-up tumor markers showed evidence of disease progression as the CA-27-29 gone up to 1346.70 on 08/20/2017 compared to 896.45 on 07/04/2017. Her chemotherapy with Xeloda and lapatinib was discontinued and decided to switch her to weekly Herceptin and Taxane , patient doesn't want take steroids so we recommended Herceptin and Abraxane combination. She did develop nausea vomiting abdominal pain with her last dose of Zometa and doesn't want to take Zometa anymore. We will switch her to Xgeva. There was delay in getting started with the Herceptin/Abraxane. She apparently had positive TB test which required workup and eventually was found to be a false positive. She began her first cycle of Herceptin and Abraxane on 10/09/2017.Last dose of Abraxane/Herceptin was given on 12/17/2017 and because of intolerance Abraxane was discontinued and last dose of Herceptin was given on 12/31/2017 Mrs Santamaria was seen by Dr. Ramirez, oncologist at [facility], for clinical trial and many clinical trials available but due to transportation and financial reasons, patient could not consider any of them. Palliative chemotherapy with carboplatin/gemcitabine/Herceptin or eribulin /Herceptin was recommended. Patient had bone scan and CT scan of chest abdomen done at [facility] which showed widespread metastatic disease. She began chemotherapy with weekly carboplatin, gemcitabine and trastuzumab on 04/15/2018 Follow-up CT PET scan done on 07/05/2018 showed improvement in hepatic metastatic disease since April 2017 study Mixed response to multiple bilateral pulmonary lesion Reactive marrow with splenic activity Osseous metastatic disease seen on April 2017 study is sclerotic and FDG negative Mrs Santamaria was admitted to hospital with abdominal pain and diagnosed with diverticulitis treated successfully with antibiotics and during this time, CT scans of chest abdomen pelvis were done on 07/30/2018 . The scans showed extensive pulmonary metastases and hepatic metastases and bone metastases, stable when compared with CT PET scan done in June 2018. She continued with treatment with carboplatin/gemcitabine/Herceptin. Follow-up CT PET scan done on 10/25/2018 showed mild improvement in hepatic, pulmonary and osseous metastatic disease. She has continued with chemotherapy with weekly Carboplatin, gemcitabine and Herceptin. She is receiving Neupogen support on and Saturday after her treatment on Saturday. She was getting the Neupogen at [place], [place]. She tolerated this plan well. She continues to have exertional shortness of breath but states it is no worse than what is has been but it is no better either. She denies any angina type pain but thinks she may have palpatations once in a while with the shortness of breath. She denies orthopnea. She denies any cough. She does have a very strong family history of CAD-both parents with her father's first OH in his 30's and both brothers have CAD. She has never had a diagnosis of CAD. She did have an echocardiogram on 11/07/2018 that reported EF of 60%-unchanged from previous echo. She reported she had a bug bite on her right breast reconstruction site around where the nipple should be. She states it presented as a big blister then it popped and then formed a scabbed area but no drainage. She had been applying triple antibotic ointment to it. She was referred to plastic surgery at [facility] and ulimately underwent right breast implant removal in December 2018, as per patient and there was no evidence of breast cancer in the specimen. Her chemotherapy was delayed because of dental procedure from 12/30/2018 to 02/04/2019. She resumed treatment on 02/04/2019. Echocardiogram done on 03/09/2019 showed Ejection fraction was 68%. Mrs Santamaria has now completed 11 cycles of Carboplatin/gemcitabine/Herceptin. She has continued denosumab as well. Mrs Santamaria underwent restaging PET/Ct on 04/21/2019. The PET/CT apparently was not compared to the scan she had on 10/25/2018. A review/comparison and an addended report has been requested. However in the interim we discussed the findings of her April 21, 2019 PET in relation to the October 25, 2018 PET. There were multiple pulmonary nodules present with the largest at the right base posteromedially measuring 4.9 x 2 point centimeters with a maximum SUV of 6.71. The results of that SUV on the October 25, 2018 report is somewhat blurry but looks to be 8.4 possibly 6.4 but indicates that the pulmonary nodules are relatively stable. The maximum SUV in the liver was 3.31 and on the October 2018 scan was 5.1. did compare the reports and felt that Soledad had had some improvement in her overall disease. We of course are waiting for the final review and updated report. These findings have been discussed with Mrs Santamaria she understands that it will be compared with the one in October. She has had persistent right arm numbness and has an appointment with Dr Matthew soto for followup on that. She now has noticed right leg numbness. It comes and goes but seems to be lasting longer when it does come. She has had no TIA symptoms. MRI scan of the head done on 05/07/2019 showed no evidence of brain metastases. Due to hyperintense enhancing 9 x 6 mm intrapituitary lesion in the left aspect of pitiutary. Normal optic chasm. Slight numx-fu-akidu mass effect on the infundibulum. Consistent with a pituitary adenoma. 10 mm metastatic C2 vertebral body lesions likely previously treated. came for follow-up, denies any specific complaints, no fever or chills, no nausea or vomiting, no diarrhea constipation, no mouth sores, no jaundice tolerating palliative therapy with carboplatin/gemcitabine well Medications: Claritin 1 Tablet (of 10 mg) Oral daily, Magnesium 1 Tablet Oral daily PRN, Multivitamin Adults 1 Tablet Oral daily PRN, Potassium 1 Tablet (of 99 mg) Oral daily PRN, Prevacid 1 Capsule (of 30 mg) Capsule Delayed Release Oral daily, Vitamin C 1 Tablet Oral daily PRN Allergies: Codeine Sulfate Review of Systems: Review of Systems is not available for this patient. Vital Signs: Performed on May 26, 2019 12:56 Height - 67.00 in Weight - 151.2 lbs (LOW) BSA - 1.80 sq.m BMI - 23.68 Temperature - 99.8 F (HIGH) Pulse - 102 /min (HIGH) Respiration - 18 /min BP - 139/80 mm(hg) O2 Sat - 95 % (LOW) Pain - 0 Performance Status: 0 - Fully active, able to carry on all predisease activities without restrictions. (ECOG) Physical Examination: Respiratory - Lungs are clear, Cardiovascular - Regular rate and rhythm of heart, Extremities - no edema. Lab/Imaging: Test performed on May 25, 2019 15:35 Sodium 139 mmol/L Potassium 3.8 mmol/L Chloride 102 mmol/L CO2 25 mmol/L Anion Gap 15.8 BUN 10 mg/dL Creatinine 0.7 mg/dL Cr Clearance (Est) 90.9400 mL/min eGFR 84.8 mL/min Glucose 53 mg/dL Calcium 9.7 mg/dL Protein, Total 7.7 g/dL Albumin 4.4 g/dL Globulin 3.3 g/dL Bilirubin, Total 0.4 mg/dL ALT (SGPT) 35 U/L AST (SGOT) 48 U/L Alkaline Phosphatase 196 IU/L WBC 6.3 10 3/uL RBC 2.86 10 6/uL HGB 9.6 g/dL HCT 31.7 % MCV 110.8 fL MCH 33.6 pg MCHC 30.3 g/dL RDW 19.3 % Platelet Count 171 10 3/cmm MPV 10.8 fL Neutrophils 2.7 10 3/uL Lymphocytes 2.0 10 3/uL Monocytes 1.4 10 3/uL Eosinophils 0.2 10 3/uL Basophils 0.0 10 3/uL Neutrophil % 42.6 % Lymphocyte % 31.3 % Monocyte % 21.8 % Eosinophil % 3.5 % Basophils % 0.5 % Test performed on Apr 27, 2019 12:10 Ferritin 400 ng/mL Iron 83 ug/dL Vitamin B12 720 pg/mL Iron Binding Capacity (TIBC) 292 mcg/dl % Iron Saturation 28.4 % UIBC 209 ug/dL Test performed on Mar 02, 2019 10:45 Vitamin D (25-Hydroxy) 28 ng/mL Impression: History of left breast cancer with metastases to left scapula status post bilateral mastectomy and left axillary lymph node dissection followed by radiation therapy to left chest wall and axilla in 2008 in [facility] in [facility] status post 1 year of Herceptin and paclitaxel and Arimidex for some time status post radiation therapy to left scapula biopsy-proven metastases Medical record obtained from [facility] [place], [place] and ER/[place] positive HER-2/oneida overexpression positive it shows #1 presentation with abnormal screening mammogram in 2010. Patient underwent neoadjuvant chemotherapy with weekly paclitaxel and Herceptin for 12 cycle from May Treated with neoadjuvant chemotherapy FEC plus Herceptin from August 2010 through October 2010 In November 2010 she undergoes bilateral simple mastectomy with pathology demonstrating pT2 N2 disease Mrs Santamaria completed 1 year of adjuvant Herceptin therapy with adjuvant aromatase inhibitor In October 2011 patient transitioned to single agent tamoxifen due to poor tolerance of aromatase inhibitor therapy In October 2012 patient presented with left scapular pain imaging demonstrates abnormal bones lesion with biopsy notable for ER/[place] positive HER-2/oneida overexpressing breast cancer, staging evaluation demonstrated bilateral pulmonary nodules with mediastinal lymphadenopathy On 12/16/2012 patient initiates letrozole plus Herceptin plus PERJETA on clinical trial On 02/22/2015 patient demonstrates subjective progression of disease within lungs On 02/25/2015 initiated on KADCYLA History of metastatic disease status post chemotherapy with different agents on multiple occasions most recent hormonal agent was letrozole 2.5 mg Elevated tumor markers CA [address] scan of chest abdomen pelvis done on 10/10/2016 showed multiple bilateral pulmonary nodules consistent with metastatic disease multiple lytic lesion including posterior aspect of T12 vertebral body related dissection of much of right side of T10 vertebra and a large lytic lesion involving the roof of the right acetabulum and right iliac wing and focus of due to dissection lesion in right ischium Stable tiny low-attenuation abnormalities within the liver most likely consistent with multiple tiny cysts Pulmonary emphysema 8 ON 09/24/2016 CA 15.3 342.6 CA 27- 29 493.59 Upper mid back pain and right hip pain due to bone metastases questionable cord compression. She did have restaging with PET/CT on 11/03/2016. The PET/CT revealed multiple FGD avid osteolytic metastases in the left scapula, posterior left 9th rib, T10, T12 and the anterior right acetabulum. Multiple FDG avid metastatic pulmonary nodules represented by 1.9 cm nodule in the posterbasal segment of the right lower lobe with an SUV of 5 and a 1.7 cm nodule in the anterrobasal segment of the left lower lobe with an SUV of 5.1. No hepatic or adrenal metastases identified. Mrs Santamaria was referred to [facility] radiation oncology and underwent radiation to the right hip, left scapula, T10-T12 spine. Her pain resolved with the radiation. offered her palliative chemotherapy with Navelbine and Herceptin. She has agreed to a trial of the chemotherapy. CT scan of the chest August 2017 reported disease progression in the chest and evidence of possible hepatic involvement as well as possible metastatic site involving the left 12th rib. PET/CT scan done on 03/02/2017 showed multiple FDG avid metastatic pulmonary nodules represented by 1.9 cm nodule in the posterior basal segment of right lower lobe with SUV 9.6 compared to 5 on prior exam and a 1.7 cm nodule in the anterior basal segment of left lower lobe with SUV of 4.9 compared to 4.1 on prior exam. There were multiple new hepatic metastatic lesions represented by 1.7 cm nodule with SUV of 5.4 in the anterior superior segment right upper lobe. The PET/CT also reported bone metastasis the left anterior superior iliac spine posteriorly right sacroiliac and T10 T12 right acetabulum, left scapula and posterior left eighth rib. MRI scan of C-spine done on 02/28/2017 showed metastatic lesion of C2 vertebral body. Additional foci of metastatic disease may involve C6 and T1 vertebral bodies multiple disc bulging and spondylosis at C5/C6 and C6/C7 with mild anterior impingement Episode of rectal bleed/abdominal pain probably due to diverticulitis/diverticular bleed CT scan of chest abdomen pelvis done on 03/31/2017 showed pulmonary metastatic disease with variable size of some of the lesion since 10/30/2016 some lesions are smaller and other are larger hepatic and bone metastatic disease similar to the prior exam CT PET scan done on 04/27/2017 showed osseous lesion in left half of C1, and right T1 transverse process and left T1 pedicle, the L1 vertebral body, and L2 vertebral body shows no changes. However, pelvic metastatic disease has worsened with SUV 8.2 compared to 4.1 previously but she is status post radiation therapy to her pelvic bones., Multifocal hepatic metastatic disease is progressed , with SUV 9.8 compared to 5.4 earlier, bilateral hypermetabolic pulmonary nodules are unchanged and right hilar malignant node demonstrated progression Started on lapatinib and Xeloda on 06/08/2017 then it was placed on hold due to radiation therapy to left hip pain. Left posterior hip pain due to bone metastases status post radiation to right hip. Status post radiation therapy to C-spine could complete 9 out of 12 recommended doses because of severe radiation-induced pharyngitis , finished on 06/25/2017 Status palliative post radiation to hip, finished on 06/26/2007 Tumor marker CA-27-29 gone up to 1346.70 on 08/20/2017 from 896.45 on 07/04/2017 Lapatinib and Xeloda discontinued on 08/26/2017 and her treatment plan changed to weekly Herceptin and Taxane 3 weeks on and 1 week off with followup PET/CT after the third cycle. She had GI issues with Zometa ( an episode of nausea vomiting and abdominal pain) so she refuses to repeat the Zometa. She will be offered Xgeva 120 mg every month instead of the Zometa. She began her first cycle of Abraxane and Herceptin on 10/09/2017.Till 12/17/2017 at that time Abraxane was discontinued because of intolerance and last dose of Herceptin was given on 12/31/2017 and because of progressive weakness and fatigue this was also discontinued Patient was referred to [facility] she was seen by Dr. Ramirez on 03/31/2018, many clinical trials are available but due to transportation and financial reason patient could not consider any of them. So palliative chemotherapy with erbulin /Herceptin or carboplatin/gemcitabine/Herceptin was recommended. She did discontinue letrozole on 04/07/2018 and it was recommended that she start on weekly carboplatin AUC 2/gemcitabine 1000 mg/m2/Herceptin day 1, 8 and 15 every 28 days. Along with monthly Xgeva. She began her first cycle on 04/15/2018 .Follow-up CT PET scan done on 07/05/2018 showed hepatic metastatic disease has improved when compared with CT PET scan done in April 2017 and index lesion in the right hepatic dome has now significant central necrosis. There was a mixed response to multiple lung nodules, a left upper lobe nodules is unchanged in size at 1.6 cm but has SUV 3.8 compared to 5.6 before similar improvement is present in the posterior right lower lobe nodule and left lung base nodules. However there are new lesions in the right middle and medial right lobes, the 2 new lesions in the medial right lobe have SUV of 289 and right middle lobe measures 2.6 cm with SUV of 6.8. Multiple osseous lesion seen previously were sclerotic and FDG negative. Suspicious uptake is identified in left femoral neck and proximal right femur and L2. Mrs Santamaria continues with Carboplatin, gemcitabine and Herceptin and monthly Xgeva. She does require intermittent support with growth factors to keep her blood counts up in order to stay on the treatment plan. Follow-up CT PET scan done on 10/25/2018 showed multiple hepatic lesions are seen on prior studies on 07/05/2018 or minimally improved in size and now with improved SUV. Mild improvement in bilateral lung nodules both in size and SUV. Mild improvement is noted in multifocal osseous metastatic disease. Follow-up echocardiogram done on 11/07/2018 showed ejection fraction around 60%. She continued with weekly Carboplatin/gemcitabine and Herceptin. She has completed 11 full cycles and had restaging imaging on 04/21/2019. She had a PET/CT at [facility] on 04/21/2019. The PET/CT apparently was not compared to the scan she had on 10/25/2018. A review/comparison and an addended report has been requested. However in the interim we discussed the findings of her April 21, 2019 PET in relation to the October 25, 2018 PET. There were multiple pulmonary nodules present with the largest at the right base posteromedially measuring 4.9 x 2 point centimeters with a maximum SUV of 6.71. The results of that SUV on the October 25, 2018 report is somewhat blurry but looks to be 8.4 possibly 6.4 but indicates that the pulmonary nodules are relatively stable. The maximum SUV in the liver was 3.31 and on the October [address] Pitts did compare the reports and felt that Soledad had had some improvement in her overall disease. We of course are waiting for the final review and updated report. These findings have been discussed with Mrs Santamaria she understands that it will be compared with the one in October. Plan: Discussed with patient regarding her labs white blood count 6.3 hemoglobin 9.6 crit 31.7 platelets 171,000 CMP within normal limits except glucose 53 Clinically, patient is doing well, tolerating palliative chemotherapy with carboplatin/gemcitabine well but with expected side effects. We'll proceed with the next biweekly carboplatin/gemcitabine today and then return to clinic in 2 weeks with CBC CMP. Signed By: Kortney Pitts M.D. <<Signature on File>>
[2019-05-26] MEDS: diphenhydrAMINE 25 mg Capsule PO (13:40)
[2019-05-26] MEDS: acetaminophen 325 mg Tablet 650 MG PO (13:40)
[2019-05-26] MEDS: sodium chloride 0.9% 250 ML 75 ML IV (13:40)
[2019-06-08 19:33] LABS: Basophils % 0.4 %; Eosinophils # 0.2 10^3/uL (0.0-0.8); Eosinophils % 3.3 %; Hematocrit 30.4 % (37.0-47.0); Lymphocytes # 1.3 10^3/uL (0.8-4.8); Lymphocytes % 28.8 %; Mean Corpuscular HGB Conc 29.6 g/dL (30.0-36.0); Mean Corpuscular Hemoglobin 34.6 pg (28.0-34.0); Mean Corpuscular Volume 116.9 fL (81-99); Mean Platelet Volume 10.8 fL (7.4-10.4); Monocytes # 0.9 10^3/uL (0.2-0.9); Neutrophils # 2.2 10^3/uL (1.8-7.7); Neutrophils % 48.1 %; Nucleated Red Blood Cells % 0 %; Platelet Count 136 10^3/cmm (130-400); Red Cell Distribution Width 18.8 % (12.1-15.1); White Blood Count 4.5 10^3/uL (4.0-10.0)
[2019-06-08 20:44] LABS: Alanine Aminotransferase 32 U/L (0-33); Albumin Level 4.1 g/dL (3.5-5.2); Alkaline Phosphatase 158 IU/L (35-105); Anion Gap 17.5 (5-19); Aspartate Amino Transferase 42 U/L (0-32); Blood Urea Nitrogen 11 mg/dL (8-23); Calcium 9.6 mg/dL (8.5-10.5); Carbon Dioxide 26 mmol/L (22-29); Chloride 98 mmol/L (98-107); Glomerular Filtration Rate 84.8 mL/min (90-130); Glucose 61 mg/dL (65-115); Osmolality Calculated 280 mOsm/kg (285-295); Potassium 3.5 mmol/L (3.5-5.1); Sodium 138 mmol/L (136-145); Total Bilirubin 0.2 mg/dL (0.15-1.2); Total Protein 7.1 g/dL (6.6-8.7)
[2019-06-09] MEDS: diphenhydrAMINE 25 mg Capsule PO (10:40)
[2019-06-09] MEDS: sodium chloride 0.9% 250 ML 75 ML IV (10:40)
[2019-06-09] MEDS: acetaminophen 325 mg Tablet 650 MG PO (10:40)
--- NOTE | 2019-06-09 12:36 | ONC FU_ITS ---
Dr. Pitts follow up note Patient: Soledad Santamaria Unit #: [id number]: 1955 Dicatated By: Kortney Pitts M.D.Date of Visit:Jun 09, 2019 Onc Med Follow-up/Prog Note History of Present Illness: Mrs. Santamaria is a 63-year-old female with history of left breast carcinoma with bone metastasis. She presented with an abnormal mammogram in 2010. She had apparently had detected an left-sided breast mass in late 2009. She was referred to Dr Gadiel Reed @ [facility] in [place], [place]. In April 2010, she underwent needle core biopsy of the left breast that did confirm invasive ductal carcinoma histological grade 2/3, ER+ IL+ and Her 2 [place] immunostain was 3+. She also had biopsy of a left axillary lymph node that was positive for invasive carcinoma with no lymphoid tissue identified. Her exam prior to chemo revealed a 3 cm mass in the extreme upper outer aspect of the left breast and multiple palpable enlarged lymph nodes-the largest was 2 cm and mobile.. Further workup included a breast MRI which did show biopsy proven malignancy in the left upper outer quadrant measuring 3.3 cm with associated axillary and subpectoral adenopathy. She had multiple satellite nodes with the largest measuring 7 cm. She did undergo MRI guided biopsy on June 08, 2010, which did report invasive cancer. She did have CT of the chest and a bone scan which did not show distant disease,. However, there was an enlarged lymph node in the subcutaneous tissues posterior to the left scapula and was biopsied on May 26, 2010 and was negative for malignancy. She under went neoadjuvant chemotherapy with weekly paclitaxel and Herceptin for 12 cycles from May 2010 to August of 2010 followed by FEC and Herceptin through October 2010. She completed 1 year of Herceptin in May 2011 during which time she was also taking an AI. She did have febrile neutropenia requiring admission in September 2010. She underwent bilateral mastectomies( for abnormal mammogram findings in the right breast) at [facility] in [facility] in November 2010. She did have post mastectomy radiation completed on 03/21/2011. She then underwent reconstruction with bilateral breast implants. Unfortunately in November 2011, the left implant became infected and had to be removed. During work up of the implant abnormality she has found to have a metastatic lesion in her left scapula. She did not have any problems until November of 2012 at which time she was having generalized bone pain, which she thought was a combination of Actonel and Anastrozole. The pain did not improve with stopping these medications. She was transitioned to single agent Tamoxifen. A bone scan revealed increased activity along the lateral margin of the left scapula suspicious of osseous metastatic disease when compared to the bone scan from November 2011. This lesion was biopsied on 12/01/2012 and revealed metastatic disease consistent with the breast primary. She did not have radiation at that time as she was not having significant pain. Mrs Santamaria was restaged and found to have diffuse pulmonary nodules and mediastinal lymphadenopathy and in November 2012, she was enrolled in a clinical trial with Herceptin. Perjeta and Letrozole. She had restaging in March 2014 that revealed slight progression of her pulmonary nodules which did not meet criteria for end point results of the clinical trial and was taken off the trial. Her bone scan was reported as stable. She transferred her care to [facility] in [place], [place] to the care of Dr Mehran Jacobson III in May 2014 due to the difficulty traveling to [facility]. The treatment of letrozole, Herceptin and Perjeta was continued until she disease progression and was changed to Kadcyla in February 2015 after restaging imaging revealed disease progression.And she could not tolerate and it was discontinued after 2 or 3 doses. INTERIM HISTORY: Mrs Santamaria was referred to us in October 2016 for followup at which time, Mrs Santamaria was having right upper back pain, left chest wall pain and right groin pain. She did have restaging with PET/CT on 11/03/2016. The PET/CT revealed multiple FGD avid osteolytic metastases in the left scapula, posterior left 9th rib, T10, T12 and the anterior right acetabulum. Multiple FDG avid metastatic pulmonary nodules represented by 1.9 cm nodule in the posterbasal segment of the right lower lobe with an SUV of 5 and a 1.7 cm nodule in the anterrobasal segment of the left lower lobe with an SUV of 5.1. No hepatic or adrenal metastases identified. Mrs Santamaria was referred to [facility] radiation oncology and underwent radiation to the right hip, left scapula, T10-T12 spine. Her pain resolved with the radiation, offered her palliative chemotherapy with Navelbine and Herceptin. She had agreed to a trial of the chemotherapy. Follow-up CT PET scan showed disease progression chemotherapy was discontinued and she was referred to radiation oncology for palliative radiation therapy. After this cycle of radiation therapy, she was started on lapatinib and Xeloda. She was tolerating it well but she was referred to radiation for C-spine metastases management. At that time her chemotherapy was put on hold. She developed right hip pain for which she received palliative radiation therapy to the 06/25/2017. The lapatinib and Xeloda was restarted but her follow-up tumor markers showed evidence of disease progression as the CA-27-29 gone up to 1346.70 on 08/20/2017 compared to 896.45 on 07/04/2017. Her chemotherapy with Xeloda and lapatinib was discontinued and decided to switch her to weekly Herceptin and Taxane , patient doesn't want take steroids so we recommended Herceptin and Abraxane combination. She did develop nausea vomiting abdominal pain with her last dose of Zometa and doesn't want to take Zometa anymore. We will switch her to Xgeva. There was delay in getting started with the Herceptin/Abraxane. She apparently had positive TB test which required workup and eventually was found to be a false positive. She began her first cycle of Herceptin and Abraxane on 10/09/2017.Last dose of Abraxane/Herceptin was given on 12/17/2017 and because of intolerance Abraxane was discontinued and last dose of Herceptin was given on 12/31/2017 Mrs Santamaria was seen by Dr. Ramirez, oncologist at [facility], for clinical trial and many clinical trials available but due to transportation and financial reasons, patient could not consider any of them. Palliative chemotherapy with carboplatin/gemcitabine/Herceptin or eribulin /Herceptin was recommended. Patient had bone scan and CT scan of chest abdomen done at [facility] which showed widespread metastatic disease. She began chemotherapy with weekly carboplatin, gemcitabine and trastuzumab on 04/15/2018 Follow-up CT PET scan done on 07/05/2018 showed improvement in hepatic metastatic disease since April 2017 study Mixed response to multiple bilateral pulmonary lesion Reactive marrow with splenic activity Osseous metastatic disease seen on April 2017 study is sclerotic and FDG negative Mrs Santamaria was admitted to hospital with abdominal pain and diagnosed with diverticulitis treated successfully with antibiotics and during this time, CT scans of chest abdomen pelvis were done on 07/30/2018 . The scans showed extensive pulmonary metastases and hepatic metastases and bone metastases, stable when compared with CT PET scan done in June 2018. She continued with treatment with carboplatin/gemcitabine/Herceptin. Follow-up CT PET scan done on 10/25/2018 showed mild improvement in hepatic, pulmonary and osseous metastatic disease. She has continued with chemotherapy with weekly Carboplatin, gemcitabine and Herceptin. She is receiving Neupogen support on and Saturday after her treatment on Saturday. She was getting the Neupogen at [place], [place]. She tolerated this plan well. She continues to have exertional shortness of breath but states it is no worse than what is has been but it is no better either. She denies any angina type pain but thinks she may have palpatations once in a while with the shortness of breath. She denies orthopnea. She denies any cough. She does have a very strong family history of CAD-both parents with her father's first TX in his 30's and both brothers have CAD. She has never had a diagnosis of CAD. She did have an echocardiogram on 11/07/2018 that reported EF of 60%-unchanged from previous echo. She reported she had a bug bite on her right breast reconstruction site around where the nipple should be. She states it presented as a big blister then it popped and then formed a scabbed area but no drainage. She had been applying triple antibotic ointment to it. She was referred to plastic surgery at [facility] and ulimately underwent right breast implant removal in December 2018, as per patient and there was no evidence of breast cancer in the specimen. Her chemotherapy was delayed because of dental procedure from 12/30/2018 to 02/04/2019. She resumed treatment on 02/04/2019. Echocardiogram done on 03/09/2019 showed Ejection fraction was 68%. Mrs Santamaria has now completed 11 cycles of Carboplatin/gemcitabine/Herceptin. She has continued denosumab as well. Mrs Santamaria underwent restaging PET/Ct on 04/21/2019. The PET/CT apparently was not compared to the scan she had on 10/25/2018. A review/comparison and an addended report has been requested. However in the interim we discussed the findings of her April 21, 2019 PET in relation to the October 25, 2018 PET. There were multiple pulmonary nodules present with the largest at the right base posteromedially measuring 4.9 x 2 point centimeters with a maximum SUV of 6.71. The results of that SUV on the October 25, 2018 report is somewhat blurry but looks to be 8.4 possibly 6.4 but indicates that the pulmonary nodules are relatively stable. The maximum SUV in the liver was 3.31 and on the October 2018 scan was 5.1. did compare the reports and felt that Soledad had had some improvement in her overall disease. We of course are waiting for the final review and updated report. These findings have been discussed with Mrs Santamaria she understands that it will be compared with the one in October. She has had persistent right arm numbness and has an appointment with Dr Matthew soto for followup on that. She now has noticed right leg numbness. It comes and goes but seems to be lasting longer when it does come. She has had no TIA symptoms. MRI scan of the head done on 05/07/2019 showed no evidence of brain metastases. Due to hyperintense enhancing 9 x 6 mm intrapituitary lesion in the left aspect of pitiutary. Normal optic chasm. Slight [id number] mass effect on the infundibulum. Consistent with a pituitary adenoma. 10 mm metastatic C2 vertebral body lesions likely previously treated. Came for follow-up, denies any specific complaints except generalized weakness and fatigue but no mutation or shortness of breath, no fever or chills, no nausea or vomiting, no diarrhea constipation, no nosebleed or gum bleed , no jaundice. Tolerating palliative therapy with carboplatin/gemcitabine well Medications: Claritin 1 Tablet (of 10 mg) Oral daily, Magnesium 1 Tablet Oral daily PRN, Multivitamin Adults 1 Tablet Oral daily PRN, Potassium 1 Tablet (of 99 mg) Oral daily PRN, Prevacid 1 Capsule (of 30 mg) Capsule Delayed Release Oral daily, Vitamin C 1 Tablet Oral daily PRN Allergies: Codeine Sulfate Review of Systems: Constitutional - Appetite is fair, weight is stable. Energy level is good but Pt admits that she may overexert herself, ENMT - No sinus congestion/drainage. No mouth sores. No sore throat or difficulty swallowing, Hematologic/Lymphatic - No abnormal bruising or bleeding, Respiratory - No dyspnea on exertion, chest pain, cough or hemoptysis, Cardiovascular - No anginal chest pain, palpitations or orthopnea, Gastrointestinal - No nausea, vomiting, diarrhea, GI bleeding, or constipation. No change in bowel habits, no heartburn or early satiety, Genitourinary (F) - No hematuria, dysuria, increased frequency, urgency, hesitancy or incontinence, Musculoskeletal - Positive for back pain, Neurologic - No dizziness, or numbness/tingling, Psychiatric - No anxiety or depression. No insomnia. Vital Signs: Performed on Jun 09, 2019 09:48 Height - 67.00 in Weight - 153.0 lbs (HIGH) BSA - 1.80 sq.m BMI - 23.96 Temperature - 97.9 F (LOW) Pulse - 95 /min Respiration - 19 /min BP - 155/65 mm(hg) (HIGH) O2 Sat - 85 % (LOW) Pain - 0 Performance Status: 1 - No physically strenuous activity, but ambulatory and able to carry out light or sedentary work (e.g. office work, light house work). (ECOG) Physical Examination: Respiratory - Lungs are clear, Cardiovascular - Regular rate and rhythm, Extremities - no edema. Lab/Imaging: Test performed on May 25, 2019 15:35 Sodium 139 mmol/L Potassium 3.8 mmol/L Chloride 102 mmol/L CO2 25 mmol/L Anion Gap 15.8 BUN 10 mg/dL Creatinine 0.7 mg/dL Cr Clearance (Est) 90.9400 mL/min eGFR 84.8 mL/min Glucose 53 mg/dL Calcium 9.7 mg/dL Protein, Total 7.7 g/dL Albumin 4.4 g/dL Globulin 3.3 g/dL Bilirubin, Total 0.4 mg/dL ALT (SGPT) 35 U/L AST (SGOT) 48 U/L Alkaline Phosphatase 196 IU/L WBC 6.3 10 3/uL RBC 2.86 10 6/uL HGB 9.6 g/dL HCT 31.7 % MCV 110.8 fL MCH 33.6 pg MCHC 30.3 g/dL RDW 19.3 % Platelet Count 171 10 3/cmm MPV 10.8 fL Neutrophils 2.7 10 3/uL Lymphocytes 2.0 10 3/uL Monocytes 1.4 10 3/uL Eosinophils 0.2 10 3/uL Basophils 0.0 10 3/uL Neutrophil % 42.6 % Lymphocyte % 31.3 % Monocyte % 21.8 % Eosinophil % 3.5 % Basophils % 0.5 % Test performed on Apr 27, 2019 12:10 Ferritin 400 ng/mL Iron 83 ug/dL Vitamin B12 720 pg/mL Iron Binding Capacity (TIBC) 292 mcg/dl % Iron Saturation 28.4 % UIBC 209 ug/dL Test performed on Mar 02, 2019 10:45 Vitamin D (25-Hydroxy) 28 ng/mL Impression: History of left breast cancer with metastases to left scapula status post bilateral mastectomy and left axillary lymph node dissection followed by radiation therapy to left chest wall and axilla in 2008 in [facility] in [facility] status post 1 year of Herceptin and paclitaxel and Arimidex for some time status post radiation therapy to left scapula biopsy-proven metastases Medical record obtained from [facility] [place], [place] and ER/IL positive HER-2/oneida overexpression positive it shows #1 presentation with abnormal screening mammogram in 2010. Patient underwent neoadjuvant chemotherapy with weekly paclitaxel and Herceptin for 12 cycle from May Treated with neoadjuvant chemotherapy FEC plus Herceptin from August 2010 through October 2010 In November 2010 she undergoes bilateral simple mastectomy with pathology demonstrating pT2 N2 disease Mrs Santamaria completed 1 year of adjuvant Herceptin therapy with adjuvant aromatase inhibitor In October 2011 patient transitioned to single agent tamoxifen due to poor tolerance of aromatase inhibitor therapy In October 2012 patient presented with left scapular pain imaging demonstrates abnormal bones lesion with biopsy notable for ER/IL positive HER-2/oneida overexpressing breast cancer, staging evaluation demonstrated bilateral pulmonary nodules with mediastinal lymphadenopathy On 12/16/2012 patient initiates letrozole plus Herceptin plus PERJETA on clinical trial On 02/22/2015 patient demonstrates subjective progression of disease within lungs On 02/25/2015 initiated on KADCYLA History of metastatic disease status post chemotherapy with different agents on multiple occasions most recent hormonal agent was letrozole 2.5 mg Elevated tumor [place] [address] scan of chest abdomen pelvis done on 10/10/2016 showed multiple bilateral pulmonary nodules consistent with metastatic disease multiple lytic lesion including posterior aspect of T12 vertebral body related dissection of much of right side of T10 vertebra and a large lytic lesion involving the roof of the right acetabulum and right iliac wing and focus of due to dissection lesion in right ischium Stable tiny low-attenuation abnormalities within the liver most likely consistent with multiple tiny cysts Pulmonary emphysema 8 ON 09/24/2016 CA 15.3 342.6 CA 27- 29 493.59 Upper mid back pain and right hip pain due to bone metastases questionable cord compression. She did have restaging with PET/CT on 11/03/2016. The PET/CT revealed multiple FGD avid osteolytic metastases in the left scapula, posterior left 9th rib, T10, T12 and the anterior right acetabulum. Multiple FDG avid metastatic pulmonary nodules represented by 1.9 cm nodule in the posterbasal segment of the right lower lobe with an SUV of 5 and a 1.7 cm nodule in the anterrobasal segment of the left lower lobe with an SUV of 5.1. No hepatic or adrenal metastases identified. Mrs Santamaria was referred to [facility] radiation oncology and underwent radiation to the right hip, left scapula, T10-T12 spine. Her pain resolved with the radiation. offered her palliative chemotherapy with Navelbine and Herceptin. She has agreed to a trial of the chemotherapy. CT scan of the chest August 2017 reported disease progression in the chest and evidence of possible hepatic involvement as well as possible metastatic site involving the left 12th rib. PET/CT scan done on 03/02/2017 showed multiple FDG avid metastatic pulmonary nodules represented by 1.9 cm nodule in the posterior basal segment of right lower lobe with SUV 9.6 compared to 5 on prior exam and a 1.7 cm nodule in the anterior basal segment of left lower lobe with SUV of 4.9 compared to 4.1 on prior exam. There were multiple new hepatic metastatic lesions represented by 1.7 cm nodule with SUV of 5.4 in the anterior superior segment right upper lobe. The PET/CT also reported bone metastasis the left anterior superior iliac spine posteriorly right sacroiliac and T10 T12 right acetabulum, left scapula and posterior left eighth rib. MRI scan of C-spine done on 02/28/2017 showed metastatic lesion of C2 vertebral body. Additional foci of metastatic disease may involve C6 and T1 vertebral bodies multiple disc bulging and spondylosis at C5/C6 and C6/C7 with mild anterior impingement Episode of rectal bleed/abdominal pain probably due to diverticulitis/diverticular bleed CT scan of chest abdomen pelvis done on 03/31/2017 showed pulmonary metastatic disease with variable size of some of the lesion since 10/30/2016 some lesions are smaller and other are larger hepatic and bone metastatic disease similar to the prior exam CT PET scan done on 04/27/2017 showed osseous lesion in left half of C1, and right T1 transverse process and left T1 pedicle, the L1 vertebral body, and L2 vertebral body shows no changes. However, pelvic metastatic disease has worsened with SUV 8.2 compared to 4.1 previously but she is status post radiation therapy to her pelvic bones., Multifocal hepatic metastatic disease is progressed , with SUV 9.8 compared to 5.4 earlier, bilateral hypermetabolic pulmonary nodules are unchanged and right hilar malignant node demonstrated progression Started on lapatinib and Xeloda on 06/08/2017 then it was placed on hold due to radiation therapy to left hip pain. Left posterior hip pain due to bone metastases status post radiation to right hip. Status post radiation therapy to C-spine could complete 9 out of 12 recommended doses because of severe radiation-induced pharyngitis , finished on 06/25/2017 Status palliative post radiation to hip, finished on 06/26/2007 Tumor marker CA-27-29 gone up to 1346.70 on 08/20/2017 from 896.45 on 07/04/2017 Lapatinib and Xeloda discontinued on 08/26/2017 and her treatment plan changed to weekly Herceptin and Taxane 3 weeks on and 1 week off with followup PET/CT after the third cycle. She had GI issues with Zometa ( an episode of nausea vomiting and abdominal pain) so she refuses to repeat the Zometa. She will be offered Xgeva 120 mg every month instead of the Zometa. She began her first cycle of Abraxane and Herceptin on 10/09/2017.Till 12/17/2017 at that time Abraxane was discontinued because of intolerance and last dose of Herceptin was given on 12/31/2017 and because of progressive weakness and fatigue this was also discontinued Patient was referred to [facility] she was seen by Dr. Ramirez on 03/31/2018, many clinical trials are available but due to transportation and financial reason patient could not consider any of them. So palliative chemotherapy with erbulin /Herceptin or carboplatin/gemcitabine/Herceptin was recommended. She did discontinue letrozole on 04/07/2018 and it was recommended that she start on weekly carboplatin AUC 2/gemcitabine 1000 mg/m2/Herceptin day 1, 8 and 15 every 28 days. Along with monthly Xgeva. She began her first cycle on 04/15/2018 .Follow-up CT PET scan done on 07/05/2018 showed hepatic metastatic disease has improved when compared with CT PET scan done in April 2017 and index lesion in the right hepatic dome has now significant central necrosis. There was a mixed response to multiple lung nodules, a left upper lobe nodules is unchanged in size at 1.6 cm but has SUV 3.8 compared to 5.6 before similar improvement is present in the posterior right lower lobe nodule and left lung base nodules. However there are new lesions in the right middle and medial right lobes, the 2 new lesions in the medial right lobe have SUV of 289 and right middle lobe measures 2.6 cm with SUV of 6.8. Multiple osseous lesion seen previously were sclerotic and FDG negative. Suspicious uptake is identified in left femoral neck and proximal right femur and L2. Mrs Santamaria continues with Carboplatin, gemcitabine and Herceptin and monthly Xgeva. She does require intermittent support with growth factors to keep her blood counts up in order to stay on the treatment plan. Follow-up CT PET scan done on 10/25/2018 showed multiple hepatic lesions are seen on prior studies on 07/05/2018 or minimally improved in size and now with improved SUV. Mild improvement in bilateral lung nodules both in size and SUV. Mild improvement is noted in multifocal osseous metastatic disease. Follow-up echocardiogram done on 11/07/2018 showed ejection fraction around 60%. She continued with weekly Carboplatin/gemcitabine and Herceptin. She has completed 11 full cycles and had restaging imaging on 04/21/2019. She had a PET/CT at [facility] on 04/21/2019. The PET/CT apparently was not compared to the scan she had on 10/25/2018. A review/comparison and an addended report has been requested. However in the interim we discussed the findings of her April 21, 2019 PET in relation to the October 25, 2018 PET. There were multiple pulmonary nodules present with the largest at the right base posteromedially measuring 4.9 x 2 point centimeters with a maximum SUV of 6.71. The results of that SUV on the October 25, 2018 report is somewhat blurry but looks to be 8.4 possibly 6.4 but indicates that the pulmonary nodules are relatively stable. The maximum SUV in the liver was 3.31 and on the October [address] Pitts did compare the reports and felt that Soledad had had some improvement in her overall disease. We of course are waiting for the final review and updated report. These findings have been discussed with Mrs Santamaria she understands that it will be compared with the one in October. Plan: Discussed with patient regarding her labs white blood count 4.5 hemoglobin 9 g hematocrit 30.4 platelets 136,000 CMP within normal limits Clinically, patient is doing well tolerating palliative therapy with biweekly carboplatin/gemcitabine/Herceptin, well. We'll proceed with next dose of carboplatin/gemcitabine/Herceptin today and then she will return to clinic in 2 weeks with CBC CMP and for treatment As far as generalized weakness and fatigue is concern probably multifactorial including stable but well compensated, moderate anemia, her anemia workup was inconclusive. At this point we'll continue monitor patient was advised conservative energy and if her hemoglobin continued drop, then will consider packed RBC transfusion Signed By: Kortney Pitts M.D. <<Signature on File>>
== END 2019-06-18 23:59 | disposition home or self-care (01) ==
LOC: ONCMED 06:44
PROVIDERS: Family Provider Nurse Practitioner Family; PCP Nurse Practitioner Family; Visit Provider Internal Medicine Hematology & Oncology
DX: Z51.12 Encounter for antineoplastic immunotherapy (principal); Z51.11 Encounter for antineoplastic chemotherapy; C79.51 Secondary malignant neoplasm of bone; C78.01 Secondary malignant neoplasm of right lung; C78.02 Secondary malignant neoplasm of left lung; D61.810 Antineoplastic chemotherapy induced pancytopenia; J43.8 Other emphysema; Z85.3 Personal history of malignant neoplasm of breast; Z92.3 Personal history of irradiation; Z79.899 Other long term (current) drug therapy; Z79.818 Long term (current) use of other agents affecting estrogen receptors and estrogen levels
CPT/HCPCS: 36415; 80053; 85025; 96367; 96413; 96417; 99214; J1100; J2469; J7040; J7050; J9045; J9201; J9355

== ENCOUNTER 2019-07-17 10:00 | Outpatient (RCR) | payer MEDICARE, SELFPAY ==
[2019-06-19 14:39] LABS: Basophils % 0.4 %; Eosinophils # 0.1 10^3/uL (0.0-0.8); Eosinophils % 1.8 %; Hematocrit 30.4 % (37.0-47.0); Hemoglobin 9.3 g/dL (11.5-15.3); Lymphocytes # 1.7 10^3/uL (0.8-4.8); Lymphocytes % 37.6 %; Mean Corpuscular HGB Conc 30.6 g/dL (30.0-36.0); Mean Corpuscular Hemoglobin 34.7 pg (28.0-34.0); Mean Corpuscular Volume 113.4 fL (81-99); Mean Platelet Volume 10.6 fL (7.4-10.4); Monocytes % 22.5 %; Neutrophils # 1.7 10^3/uL (1.8-7.7); Nucleated Red Blood Cells % 0 %; Platelet Count 105 10^3/cmm (130-400); Red Blood Count 2.68 10^6/uL (4.1-5.3); Red Cell Distribution Width 17.6 % (12.1-15.1); White Blood Count 4.5 10^3/uL (4.0-10.0)
[2019-06-19 16:18] LABS: Alanine Aminotransferase 34 U/L (0-33); Albumin Level 4.2 g/dL (3.5-5.2); Alkaline Phosphatase 158 IU/L (35-105); Anion Gap 16.2 (5-19); Aspartate Amino Transferase 50 U/L (0-32); Blood Urea Nitrogen 8 mg/dL (8-23); Calcium 9.5 mg/dL (8.5-10.5); Carbon Dioxide 25 mmol/L (22-29); Chloride 100 mmol/L (98-107); Globulin 3.3 g/dL (1.3-4.6); Glomerular Filtration Rate 84.8 mL/min (90-130); Glucose 81 mg/dL (65-115); Osmolality Calculated 279 mOsm/kg (285-295); Potassium 4.2 mmol/L (3.5-5.1); Sodium 137 mmol/L (136-145); Total Bilirubin 0.3 mg/dL (0.15-1.2); Total Protein 7.5 g/dL (6.6-8.7)
[2019-06-22] MEDS: diphenhydrAMINE 25 mg Capsule PO (10:50)
[2019-06-22] MEDS: acetaminophen 325 mg Tablet 650 MG PO (10:50)
[2019-06-22] MEDS: sodium chloride 0.9% 250 ML 75 ML IV (10:50)
--- NOTE | 2019-06-22 11:02 | ONC FU_ITS ---
Dr. Pitts follow up note Patient: Soledad Santamaria Unit #: [id number]: [id number] Dicatated By: Kortney Pitts M.D.Date of Visit:June 22, 2019 Onc Med Follow-up/Prog Note History of Present Illness: Mrs. Santamaria is a 63-year-old female with history of left breast carcinoma with bone metastasis. She presented with an abnormal mammogram in 2010. She had apparently had detected an left-sided breast mass in late 2009. She was referred to Dr Gadiel Reed @ [facility] in [place], [place]. In April 2010, she underwent needle core biopsy of the left breast that did confirm invasive ductal carcinoma histological grade 2/3, ER+ IL+ and Her 2 Oneida immunostain was 3+. She also had biopsy of a left axillary lymph node that was positive for invasive carcinoma with no lymphoid tissue identified. Her exam prior to chemo revealed a 3 cm mass in the extreme upper outer aspect of the left breast and multiple palpable enlarged lymph nodes-the largest was 2 cm and mobile.. Further workup included a breast MRI which did show biopsy proven malignancy in the left upper outer quadrant measuring 3.3 cm with associated axillary and subpectoral adenopathy. She had multiple satellite nodes with the largest measuring 7 cm. She did undergo MRI guided biopsy on June 08, 2010, which did report invasive cancer. She did have CT of the chest and a bone scan which did not show distant disease,. However, there was an enlarged lymph node in the subcutaneous tissues posterior to the left scapula and was biopsied on May 26, 2010 and was negative for malignancy. She under went neoadjuvant chemotherapy with weekly paclitaxel and Herceptin for 12 cycles from May 2010 to August of 2010 followed by FEC and Herceptin through October 2010. She completed 1 year of Herceptin in May 2011 during which time she was also taking an AI. She did have febrile neutropenia requiring admission in September 2010. She underwent bilateral mastectomies( for abnormal mammogram findings in the right breast) at [facility] in [facility] in November 2010. She did have post mastectomy radiation completed on 03/21/2011. She then underwent reconstruction with bilateral breast implants. Unfortunately in November 2011, the left implant became infected and had to be removed. During work up of the implant abnormality she has found to have a metastatic lesion in her left scapula. She did not have any problems until November of 2012 at which time she was having generalized bone pain, which she thought was a combination of Actonel and Anastrozole. The pain did not improve with stopping these medications. She was transitioned to single agent Tamoxifen. A bone scan revealed increased activity along the lateral margin of the left scapula suspicious of osseous metastatic disease when compared to the bone scan from November 2011. This lesion was biopsied on 12/01/2012 and revealed metastatic disease consistent with the breast primary. She did not have radiation at that time as she was not having significant pain. Mrs Santamaria was restaged and found to have diffuse pulmonary nodules and mediastinal lymphadenopathy and in November 2012, she was enrolled in a clinical trial with Herceptin. Perjeta and Letrozole. She had restaging in March 2014 that revealed slight progression of her pulmonary nodules which did not meet criteria for end point results of the clinical trial and was taken off the trial. Her bone scan was reported as stable. She transferred her care to [facility] in [place], [place] to the care of Dr Mehran Jacobson III in May 2014 due to the difficulty traveling to [facility]. The treatment of letrozole, Herceptin and Perjeta was continued until she disease progression and was changed to Kadcyla in February 2015 after restaging imaging revealed disease progression.And she could not tolerate and it was discontinued after 2 or 3 doses. INTERIM HISTORY: Mrs Santamaria was referred to us in October 2016 for followup at which time, Mrs Santamaria was having right upper back pain, left chest wall pain and right groin pain. She did have restaging with PET/CT on 11/03/2016. The PET/CT revealed multiple FGD avid osteolytic metastases in the left scapula, posterior left 9th rib, T10, T12 and the anterior right acetabulum. Multiple FDG avid metastatic pulmonary nodules represented by 1.9 cm nodule in the posterbasal segment of the right lower lobe with an SUV of 5 and a 1.7 cm nodule in the anterrobasal segment of the left lower lobe with an SUV of 5.1. No hepatic or adrenal metastases identified. Mrs Santamaria was referred to [facility] radiation oncology and underwent radiation to the right hip, left scapula, T10-T12 spine. Her pain resolved with the radiation, offered her palliative chemotherapy with Navelbine and Herceptin. She had agreed to a trial of the chemotherapy. Follow-up CT PET scan showed disease progression chemotherapy was discontinued and she was referred to radiation oncology for palliative radiation therapy. After this cycle of radiation therapy, she was started on lapatinib and Xeloda. She was tolerating it well but she was referred to radiation for C-spine metastases management. At that time her chemotherapy was put on hold. She developed right hip pain for which she received palliative radiation therapy to the 06/25/2017. The lapatinib and Xeloda was restarted but her follow-up tumor markers showed evidence of disease progression as the CA-27-29 gone up to 1346.70 on 08/20/2017 compared to 896.45 on 07/04/2017. Her chemotherapy with Xeloda and lapatinib was discontinued and decided to switch her to weekly Herceptin and Taxane , patient doesn't want take steroids so we recommended Herceptin and Abraxane combination. She did develop nausea vomiting abdominal pain with her last dose of Zometa and doesn't want to take Zometa anymore. We will switch her to Xgeva. There was delay in getting started with the Herceptin/Abraxane. She apparently had positive TB test which required workup and eventually was found to be a false positive. She began her first cycle of Herceptin and Abraxane on 10/09/2017.Last dose of Abraxane/Herceptin was given on 12/17/2017 and because of intolerance Abraxane was discontinued and last dose of Herceptin was given on 12/31/2017 Mrs Santamaria was seen by Dr. Ramirez, oncologist at [facility], for clinical trial and many clinical trials available but due to transportation and financial reasons, patient could not consider any of them. Palliative chemotherapy with carboplatin/gemcitabine/Herceptin or eribulin /Herceptin was recommended. Patient had bone scan and CT scan of chest abdomen done at [facility] which showed widespread metastatic disease. She began chemotherapy with weekly carboplatin, gemcitabine and trastuzumab on 04/15/2018 Follow-up CT PET scan done on 07/05/2018 showed improvement in hepatic metastatic disease since April 2017 study Mixed response to multiple bilateral pulmonary lesion Reactive marrow with splenic activity Osseous metastatic disease seen on April 2017 study is sclerotic and FDG negative Mrs Santamaria was admitted to hospital with abdominal pain and diagnosed with diverticulitis treated successfully with antibiotics and during this time, CT scans of chest abdomen pelvis were done on 07/30/2018 . The scans showed extensive pulmonary metastases and hepatic metastases and bone metastases, stable when compared with CT PET scan done in June 2018. She continued with treatment with carboplatin/gemcitabine/Herceptin. Follow-up CT PET scan done on 10/25/2018 showed mild improvement in hepatic, pulmonary and osseous metastatic disease. She has continued with chemotherapy with weekly Carboplatin, gemcitabine and Herceptin. She is receiving Neupogen support on and Saturday after her treatment on Saturday. She was getting the Neupogen at [place], [place]. She tolerated this plan well. She continues to have exertional shortness of breath but states it is no worse than what is has been but it is no better either. She denies any angina type pain but thinks she may have palpatations once in a while with the shortness of breath. She denies orthopnea. She denies any cough. She does have a very strong family history of CAD-both parents with her father's first PA in his 30's and both brothers have CAD. She has never had a diagnosis of CAD. She did have an echocardiogram on 11/07/2018 that reported EF of 60%-unchanged from previous echo. She reported she had a bug bite on her right breast reconstruction site around where the nipple should be. She states it presented as a big blister then it popped and then formed a scabbed area but no drainage. She had been applying triple antibotic ointment to it. She was referred to plastic surgery at [facility] and ulimately underwent right breast implant removal in December 2018, as per patient and there was no evidence of breast cancer in the specimen. Her chemotherapy was delayed because of dental procedure from 12/30/2018 to 02/04/2019. She resumed treatment on 02/04/2019. Echocardiogram done on 03/09/2019 showed Ejection fraction was 68%. Mrs Santamaria has now completed 11 cycles of Carboplatin/gemcitabine/Herceptin. She has continued denosumab as well. Mrs Santamaria underwent restaging PET/Ct on 04/21/2019. The PET/CT apparently was not compared to the scan she had on 10/25/2018. A review/comparison and an addended report has been requested. However in the interim we discussed the findings of her April 21, 2019 PET in relation to the October 25, 2018 PET. There were multiple pulmonary nodules present with the largest at the right base posteromedially measuring 4.9 x 2 point centimeters with a maximum SUV of 6.71. The results of that SUV on the October 25, 2018 report is somewhat blurry but looks to be 8.4 possibly 6.4 but indicates that the pulmonary nodules are relatively stable. The maximum SUV in the liver was 3.31 and on the October 2018 scan was 5.1. did compare the reports and felt that Soledad had had some improvement in her overall disease. We of course are waiting for the final review and updated report. These findings have been discussed with Mrs Santamaria she understands that it will be compared with the one in October. She has had persistent right arm numbness and has an appointment with Dr Matthew soto for followup on that. She now has noticed right leg numbness. It comes and goes but seems to be lasting longer when it does come. She has had no TIA symptoms. MRI scan of the head done on 05/07/2019 showed no evidence of brain metastases. Due to hyperintense enhancing 9 x 6 mm intrapituitary lesion in the left aspect of pitiutary. Normal optic chasm. Slight [id number] mass effect on the infundibulum. Consistent with a pituitary adenoma. 10 mm metastatic C2 vertebral body lesions likely previously treated. Came for follow-up, denies any specific complaints, no fever or chills, no nausea or vomiting, no diarrhea constipation, generalized weakness fatigue is also improving.tolerating palliative therapy with carboplatin/gemcitabine/Herceptin well Medications: Claritin 1 Tablet (of 10 mg) Oral daily, Magnesium 1 Tablet Oral daily PRN, Multivitamin Adults 1 Tablet Oral daily PRN, Potassium 1 Tablet (of 99 mg) Oral daily PRN, Prevacid 1 Capsule (of 30 mg) Capsule Delayed Release Oral daily, Vitamin C 1 Tablet Oral daily PRN Allergies: Codeine Sulfate Review of Systems: Review of Systems is not available for this patient. Vital Signs: Performed on June 22, 2019 10:18 Height - 67.00 in Weight - 153.4 lbs (HIGH) BSA - 1.81 sq.m BMI - 24.03 Temperature - 98.0 F (LOW) Pulse - 105 /min (HIGH) Respiration - 22 /min BP - 137/66 mm(hg) O2 Sat - 89 % (LOW) Pain - 0 Performance Status: 1 - No physically strenuous activity, but ambulatory and able to carry out light or sedentary work (e.g. office work, light house work). (ECOG) Physical Examination: Respiratory - Lungs are clear, Cardiovascular - Regular rate and rhythm of heart, Extremities - no visible edema. Lab/Imaging: Test performed on June 19, 2019 12:40 Sodium 137 mmol/L Potassium 4.2 mmol/L Chloride 100 mmol/L CO2 25 mmol/L Anion Gap 16.2 BUN 8 mg/dL Creatinine 0.7 mg/dL Cr Clearance (Est) 90.9400 mL/min eGFR 84.8 mL/min Glucose 81 mg/dL Calcium 9.5 mg/dL Protein, Total 7.5 g/dL Albumin 4.2 g/dL Globulin 3.3 g/dL Bilirubin, Total 0.3 mg/dL ALT (SGPT) 34 U/L AST (SGOT) 50 U/L Alkaline Phosphatase 158 IU/L WBC 4.5 10 3/uL RBC 2.68 10 6/uL HGB 9.3 g/dL HCT 30.4 % MCV 113.4 fL MCH 34.7 pg MCHC 30.6 g/dL RDW 17.6 % Platelet Count 105 10 3/cmm MPV 10.6 fL Neutrophils 1.7 10 3/uL Lymphocytes 1.7 10 3/uL Monocytes 1.0 10 3/uL Eosinophils 0.1 10 3/uL Basophils 0.0 10 3/uL Neutrophil % 37.0 % Lymphocyte % 37.6 % Monocyte % 22.5 % Eosinophil % 1.8 % Basophils % 0.4 % Test performed on Apr 27, 2019 12:10 Ferritin 400 ng/mL Iron 83 ug/dL Vitamin B12 720 pg/mL Iron Binding Capacity (TIBC) 292 mcg/dl % Iron Saturation 28.4 % UIBC 209 ug/dL Test performed on Mar 02, 2019 10:45 Vitamin D (25-Hydroxy) 28 ng/mL Impression: History of left breast cancer with metastases to left scapula status post bilateral mastectomy and left axillary lymph node dissection followed by radiation therapy to left chest wall and axilla in 2008 in [facility] in [facility] status post 1 year of Herceptin and paclitaxel and Arimidex for some time status post radiation therapy to left scapula biopsy-proven metastases Medical record obtained from [facility] [place], [place] and ER/IL positive HER-2/oneida overexpression positive it shows #1 presentation with abnormal screening mammogram in 2010. Patient underwent neoadjuvant chemotherapy with weekly paclitaxel and Herceptin for 12 cycle from May Treated with neoadjuvant chemotherapy FEC plus Herceptin from August 2010 through October 2010 In November 2010 she undergoes bilateral simple mastectomy with pathology demonstrating pT2 N2 disease Mrs Santamaria completed 1 year of adjuvant Herceptin therapy with adjuvant aromatase inhibitor In October 2011 patient transitioned to single agent tamoxifen due to poor tolerance of aromatase inhibitor therapy In October 2012 patient presented with left scapular pain imaging demonstrates abnormal bones lesion with biopsy notable for ER/IL positive HER-2/oneida overexpressing breast cancer, staging evaluation demonstrated bilateral pulmonary nodules with mediastinal lymphadenopathy On 12/16/2012 patient initiates letrozole plus Herceptin plus PERJETA on clinical trial On 02/22/2015 patient demonstrates subjective progression of disease within lungs On 02/25/2015 initiated on KADCYLA History of metastatic disease status post chemotherapy with different agents on multiple occasions most recent hormonal agent was letrozole 2.5 mg Elevated tumor markers [place] [address] scan of chest abdomen pelvis done on 10/10/2016 showed multiple bilateral pulmonary nodules consistent with metastatic disease multiple lytic lesion including posterior aspect of T12 vertebral body related dissection of much of right side of T10 vertebra and a large lytic lesion involving the roof of the right acetabulum and right iliac wing and focus of due to dissection lesion in right ischium Stable tiny low-attenuation abnormalities within the liver most likely consistent with multiple tiny cysts Pulmonary emphysema 8 ON 09/24/2016 CA 15.3 342.6 CA 27- 29 493.59 Upper mid back pain and right hip pain due to bone metastases questionable cord compression. She did have restaging with PET/CT on 11/03/2016. The PET/CT revealed multiple FGD avid osteolytic metastases in the left scapula, posterior left 9th rib, T10, T12 and the anterior right acetabulum. Multiple FDG avid metastatic pulmonary nodules represented by 1.9 cm nodule in the posterbasal segment of the right lower lobe with an SUV of 5 and a 1.7 cm nodule in the anterrobasal segment of the left lower lobe with an SUV of 5.1. No hepatic or adrenal metastases identified. Mrs Santamaria was referred to [facility] [place] oncology and underwent radiation to the right hip, left scapula, T10-T12 spine. Her pain resolved with the radiation. offered her palliative chemotherapy with Navelbine and Herceptin. She has agreed to a trial of the chemotherapy. CT scan of the chest August 2017 reported disease progression in the chest and evidence of possible hepatic involvement as well as possible metastatic site involving the left 12th rib. PET/CT scan done on 03/02/2017 showed multiple FDG avid metastatic pulmonary nodules represented by 1.9 cm nodule in the posterior basal segment of right lower lobe with SUV 9.6 compared to 5 on prior exam and a 1.7 cm nodule in the anterior basal segment of left lower lobe with SUV of 4.9 compared to 4.1 on prior exam. There were multiple new hepatic metastatic lesions represented by 1.7 cm nodule with SUV of 5.4 in the anterior superior segment right upper lobe. The PET/CT also reported bone metastasis the left anterior superior iliac spine posteriorly right sacroiliac and T10 T12 right acetabulum, left scapula and posterior left eighth rib. MRI scan of C-spine done on 02/28/2017 showed metastatic lesion of C2 vertebral body. Additional foci of metastatic disease may involve C6 and T1 vertebral bodies multiple disc bulging and spondylosis at C5/C6 and C6/C7 with mild anterior impingement Episode of rectal bleed/abdominal pain probably due to diverticulitis/diverticular bleed CT scan of chest abdomen pelvis done on 03/31/2017 showed pulmonary metastatic disease with variable size of some of the lesion since 10/30/2016 some lesions are smaller and other are larger hepatic and bone metastatic disease similar to the prior exam CT PET scan done on 04/27/2017 showed osseous lesion in left half of C1, and right T1 transverse process and left T1 pedicle, the L1 vertebral body, and L2 vertebral body shows no changes. However, pelvic metastatic disease has worsened with SUV 8.2 compared to 4.1 previously but she is status post radiation therapy to her pelvic bones., Multifocal hepatic metastatic disease is progressed , with SUV 9.8 compared to 5.4 earlier, bilateral hypermetabolic pulmonary nodules are unchanged and right hilar malignant node demonstrated progression Started on lapatinib and Xeloda on 06/08/2017 then it was placed on hold due to radiation therapy to left hip pain. Left posterior hip pain due to bone metastases status post radiation to right hip. Status post radiation therapy to C-spine could complete 9 out of 12 recommended doses because of severe radiation-induced pharyngitis , finished on 06/25/2017 Status palliative post radiation to hip, finished on 06/26/2007 Tumor marker CA-27-29 gone up to 1346.70 on 08/20/2017 from 896.45 on 07/04/2017 Lapatinib and Xeloda discontinued on 08/26/2017 and her treatment plan changed to weekly Herceptin and Taxane 3 weeks on and 1 week off with followup PET/CT after the third cycle. She had GI issues with Zometa ( an episode of nausea vomiting and abdominal pain) so she refuses to repeat the Zometa. She will be offered Xgeva 120 mg every month instead of the Zometa. She began her first cycle of Abraxane and Herceptin on 10/09/2017.Till 12/17/2017 at that time Abraxane was discontinued because of intolerance and last dose of Herceptin was given on 12/31/2017 and because of progressive weakness and fatigue this was also discontinued Patient was referred to [facility] she was seen by Dr. Ramirez on 03/31/2018, many clinical trials are available but due to transportation and financial reason patient could not consider any of them. So palliative chemotherapy with erbulin /Herceptin or carboplatin/gemcitabine/Herceptin was recommended. She did discontinue letrozole on 04/07/2018 and it was recommended that she start on weekly carboplatin AUC 2/gemcitabine 1000 mg/m2/Herceptin day 1, 8 and 15 every 28 days. Along with monthly Xgeva. She began her first cycle on 04/15/2018 .Follow-up CT PET scan done on 07/05/2018 showed hepatic metastatic disease has improved when compared with CT PET scan done in April 2017 and index lesion in the right hepatic dome has now significant central necrosis. There was a mixed response to multiple lung nodules, a left upper lobe nodules is unchanged in size at 1.6 cm but has SUV 3.8 compared to 5.6 before similar improvement is present in the posterior right lower lobe nodule and left lung base nodules. However there are new lesions in the right middle and medial right lobes, the 2 new lesions in the medial right lobe have SUV of 289 and right middle lobe measures 2.6 cm with SUV of 6.8. Multiple osseous lesion seen previously were sclerotic and FDG negative. Suspicious uptake is identified in left femoral neck and proximal right femur and L2. Mrs Santamaria continues with Carboplatin, gemcitabine and Herceptin and monthly Xgeva. She does require intermittent support with growth factors to keep her blood counts up in order to stay on the treatment plan. Follow-up CT PET scan done on 10/25/2018 showed multiple hepatic lesions are seen on prior studies on 07/05/2018 or minimally improved in size and now with improved SUV. Mild improvement in bilateral lung nodules both in size and SUV. Mild improvement is noted in multifocal osseous metastatic disease. Follow-up echocardiogram done on 11/07/2018 showed ejection fraction around 60%. She continued with weekly Carboplatin/gemcitabine and Herceptin. She has completed 11 full cycles and had restaging imaging on 04/21/2019. She had a PET/CT at [facility] on 04/21/2019. The PET/CT apparently was not compared to the scan she had on 10/25/2018. A review/comparison and an addended report has been requested. However in the interim we discussed the findings of her April 21, 2019 PET in relation to the October 25, 2018 PET. There were multiple pulmonary nodules present with the largest at the right base posteromedially measuring 4.9 x 2 point centimeters with a maximum SUV of 6.71. The results of that SUV on the October 25, 2018 report is somewhat blurry but looks to be 8.4 possibly 6.4 but indicates that the pulmonary nodules are relatively stable. The maximum SUV in the liver was 3.31 and on the October [address] Pitts did compare the reports and felt that Soledad had had some improvement in her overall disease. We of course are waiting for the final review and updated report. These findings have been discussed with Mrs Santamaria she understands that it will be compared with the one in October. Plan: Discussed with patient regarding her labs white blood count 4.5 hemoglobin 9.3 hematocrit 30.4 platelets 105,000 CMP within normal limits Clinically, patient is doing well, tolerating systemic therapy with Herceptin/carboplatin/gemcitabine well but with expected side effects e.g. progressive thrombocytopenia. We'll oceed with next biweekly dose of carboplatin/gemcitabine/Herceptin today and then she will return to clinic in 2 weeks with CBC CMP and if reasonable, for chemotherapy Mild/moderate anemia, hemoglobin stable, will continue to monitor and consider transfusion if hemoglobin drops to below 8 g Signed By: Kortney Pitts M.D. <<Signature on File>>
[2019-06-22] MEDS: denosumab 120 mg SDV SUBCUT (12:30)
[2019-07-03 11:24] LABS: Basophils % 0.3 %; Eosinophils # 0.1 10^3/uL (0.0-0.8); Eosinophils % 1.9 %; Hematocrit 30.2 % (37.0-47.0); Hemoglobin 9.4 g/dL (11.5-15.3); Lymphocytes # 1.9 10^3/uL (0.8-4.8); Lymphocytes % 32.8 %; Mean Corpuscular HGB Conc 31.1 g/dL (30.0-36.0); Mean Corpuscular Hemoglobin 35.2 pg (28.0-34.0); Mean Corpuscular Volume 113.1 fL (81-99); Mean Platelet Volume 11.1 fL (7.4-10.4); Monocytes % 16.7 %; Neutrophils # 2.8 10^3/uL (1.8-7.7); Neutrophils % 47.8 %; Nucleated Red Blood Cells % 0 %; Platelet Count 107 10^3/cmm (130-400); Red Blood Count 2.67 10^6/uL (4.1-5.3); Red Cell Distribution Width 17.2 % (12.1-15.1); White Blood Count 5.8 10^3/uL (4.0-10.0)
[2019-07-03 11:47] LABS: Alanine Aminotransferase 41 U/L (0-33); Albumin Level 4.4 g/dL (3.5-5.2); Alkaline Phosphatase 181 IU/L (35-105); Anion Gap 16.7 (5-19); Aspartate Amino Transferase 52 U/L (0-32); Blood Urea Nitrogen 8 mg/dL (8-23); Calcium 9.9 mg/dL (8.5-10.5); Carbon Dioxide 25 mmol/L (22-29); Chloride 102 mmol/L (98-107); Globulin 3.4 g/dL (1.3-4.6); Glomerular Filtration Rate 84.8 mL/min (90-130); Glucose 81 mg/dL (65-115); Osmolality Calculated 285 mOsm/kg (285-295); Potassium 3.7 mmol/L (3.5-5.1); Sodium 140 mmol/L (136-145); Total Bilirubin 0.4 mg/dL (0.15-1.2); Total Protein 7.8 g/dL (6.6-8.7)
[2019-07-06] MEDS: diphenhydrAMINE 25 mg Capsule PO (09:30)
[2019-07-06] MEDS: acetaminophen 325 mg Tablet 650 MG PO (09:30)
[2019-07-06] MEDS: sodium chloride 0.9% 250 ML 75 ML IV (09:30)
--- NOTE | 2019-07-06 18:05 | ONC FU_ITS ---
Dr. Pitts follow up note Patient: Soledad Santamaria Unit #: [id number]: 1955 Dicatated By: Kortney Pitts M.D.Date of Visit:July 06, 2019 Onc Med Follow-up/Prog Note History of Present Illness: Mrs. Santamaria is a 63-year-old female with history of left breast carcinoma with bone metastasis. She presented with an abnormal mammogram in 2010. She had apparently had detected an left-sided breast mass in late 2009. She was referred to Dr Gadiel Reed @ [facility] in [place], [place]. In April 2010, she underwent needle core biopsy of the left breast that did confirm invasive ductal carcinoma histological grade 2/3, ER+ ID+ and Her 2 Oneida immunostain was 3+. She also had biopsy of a left axillary lymph node that was positive for invasive carcinoma with no lymphoid tissue identified. Her exam prior to chemo revealed a 3 cm mass in the extreme upper outer aspect of the left breast and multiple palpable enlarged lymph nodes-the largest was 2 cm and mobile.. Further workup included a breast MRI which did show biopsy proven malignancy in the left upper outer quadrant measuring 3.3 cm with associated axillary and subpectoral adenopathy. She had multiple satellite nodes with the largest measuring 7 cm. She did undergo MRI guided biopsy on June 08, 2010, which did report invasive cancer. She did have CT of the chest and a bone scan which did not show distant disease,. However, there was an enlarged lymph node in the subcutaneous tissues posterior to the left scapula and was biopsied on May 26, 2010 and was negative for malignancy. She under went neoadjuvant chemotherapy with weekly paclitaxel and Herceptin for 12 cycles from May 2010 to August of 2010 followed by FEC and Herceptin through October 2010. She completed 1 year of Herceptin in May 2011 during which time she was also taking an AI. She did have febrile neutropenia requiring admission in September 2010. She underwent bilateral mastectomies( for abnormal mammogram findings in the right breast) at [facility] in [facility] in November 2010. She did have post mastectomy radiation completed on 03/21/2011. She then underwent reconstruction with bilateral breast implants. Unfortunately in November 2011, the left implant became infected and had to be removed. During work up of the implant abnormality she has found to have a metastatic lesion in her left scapula. She did not have any problems until November of 2012 at which time she was having generalized bone pain, which she thought was a combination of Actonel and Anastrozole. The pain did not improve with stopping these medications. She was transitioned to single agent Tamoxifen. A bone scan revealed increased activity along the lateral margin of the left scapula suspicious of osseous metastatic disease when compared to the bone scan from November 2011. This lesion was biopsied on 12/01/2012 and revealed metastatic disease consistent with the breast primary. She did not have radiation at that time as she was not having significant pain. Mrs Santamaria was restaged and found to have diffuse pulmonary nodules and mediastinal lymphadenopathy and in November 2012, she was enrolled in a clinical trial with Herceptin. Perjeta and Letrozole. She had restaging in March 2014 that revealed slight progression of her pulmonary nodules which did not meet criteria for end point results of the clinical trial and was taken off the trial. Her bone scan was reported as stable. She transferred her care to [facility] in [place], [place] to the care of Dr Mehran Jacobson III in May 2014 due to the difficulty traveling to [facility]. The treatment of letrozole, Herceptin and Perjeta was continued until she disease progression and was changed to Kadcyla in February 2015 after restaging imaging revealed disease progression.And she could not tolerate and it was discontinued after 2 or 3 doses. INTERIM HISTORY: Mrs Santamaria was referred to us in October 2016 for followup at which time, Mrs Santamaria was having right upper back pain, left chest wall pain and right groin pain. She did have restaging with PET/CT on 11/03/2016. The PET/CT revealed multiple FGD avid osteolytic metastases in the left scapula, posterior left 9th rib, T10, T12 and the anterior right acetabulum. Multiple FDG avid metastatic pulmonary nodules represented by 1.9 cm nodule in the posterbasal segment of the right lower lobe with an SUV of 5 and a 1.7 cm nodule in the anterrobasal segment of the left lower lobe with an SUV of 5.1. No hepatic or adrenal metastases identified. Mrs Santamaria was referred to [facility] radiation oncology and underwent radiation to the right hip, left scapula, T10-T12 spine. Her pain resolved with the radiation, offered her palliative chemotherapy with Navelbine and Herceptin. She had agreed to a trial of the chemotherapy. Follow-up CT PET scan showed disease progression chemotherapy was discontinued and she was referred to radiation oncology for palliative radiation therapy. After this cycle of radiation therapy, she was started on lapatinib and Xeloda. She was tolerating it well but she was referred to radiation for C-spine metastases management. At that time her chemotherapy was put on hold. She developed right hip pain for which she received palliative radiation therapy to the 06/25/2017. The lapatinib and Xeloda was restarted but her follow-up tumor markers showed evidence of disease progression as the CA-27-29 gone up to 1346.70 on 08/20/2017 compared to 896.45 on 07/04/2017. Her chemotherapy with Xeloda and lapatinib was discontinued and decided to switch her to weekly Herceptin and Taxane , patient doesn't want take steroids so we recommended Herceptin and Abraxane combination. She did develop nausea vomiting abdominal pain with her last dose of Zometa and doesn't want to take Zometa anymore. We will switch her to Xgeva. There was delay in getting started with the Herceptin/Abraxane. She apparently had positive TB test which required workup and eventually was found to be a false positive. She began her first cycle of Herceptin and Abraxane on 10/09/2017.Last dose of Abraxane/Herceptin was given on 12/17/2017 and because of intolerance Abraxane was discontinued and last dose of Herceptin was given on 12/31/2017 Mrs Santamaria was seen by Dr. Ramirez, oncologist at [facility], for clinical trial and many clinical trials available but due to transportation and financial reasons, patient could not consider any of them. Palliative chemotherapy with carboplatin/gemcitabine/Herceptin or eribulin /Herceptin was recommended. Patient had bone scan and CT scan of chest abdomen done at [facility] which showed widespread metastatic disease. She began chemotherapy with weekly carboplatin, gemcitabine and trastuzumab on 04/15/2018 Follow-up CT PET scan done on 07/05/2018 showed improvement in hepatic metastatic disease since April 2017 study Mixed response to multiple bilateral pulmonary lesion Reactive marrow with splenic activity Osseous metastatic disease seen on April 2017 study is sclerotic and FDG negative Mrs Santamaria was admitted to hospital with abdominal pain and diagnosed with diverticulitis treated successfully with antibiotics and during this time, CT scans of chest abdomen pelvis were done on 07/30/2018 . The scans showed extensive pulmonary metastases and hepatic metastases and bone metastases, stable when compared with CT PET scan done in June 2018. She continued with treatment with carboplatin/gemcitabine/Herceptin. Follow-up CT PET scan done on 10/25/2018 showed mild improvement in hepatic, pulmonary and osseous metastatic disease. She has continued with chemotherapy with weekly Carboplatin, gemcitabine and Herceptin. She is receiving Neupogen support on and Saturday after her treatment on Saturday. She was getting the Neupogen at [place], [place]. She tolerated this plan well. She continues to have exertional shortness of breath but states it is no worse than what is has been but it is no better either. She denies any angina type pain but thinks she may have palpatations once in a while with the shortness of breath. She denies orthopnea. She denies any cough. She does have a very strong family history of CAD-both parents with her father's first RI in his 30's and both brothers have CAD. She has never had a diagnosis of CAD. She did have an echocardiogram on 11/07/2018 that reported EF of 60%-unchanged from previous echo. She reported she had a bug bite on her right breast reconstruction site around where the nipple should be. She states it presented as a big blister then it popped and then formed a scabbed area but no drainage. She had been applying triple antibotic ointment to it. She was referred to plastic surgery at [facility] and ulimately underwent right breast implant removal in December 2018, as per patient and there was no evidence of breast cancer in the specimen. Her chemotherapy was delayed because of dental procedure from 12/30/2018 to 02/04/2019. She resumed treatment on 02/04/2019. Echocardiogram done on 03/09/2019 showed Ejection fraction was 68%. Mrs Santamaria has now completed 11 cycles of Carboplatin/gemcitabine/Herceptin. She has continued denosumab as well. Mrs Santamaria underwent restaging PET/Ct on 04/21/2019. The PET/CT apparently was not compared to the scan she had on 10/25/2018. A review/comparison and an addended report has been requested. However in the interim we discussed the findings of her April 21, 2019 PET in relation to the October 25, 2018 PET. There were multiple pulmonary nodules present with the largest at the right base posteromedially measuring 4.9 x 2 point centimeters with a maximum SUV of 6.71. The results of that SUV on the October 25, 2018 report is somewhat blurry but looks to be 8.4 possibly 6.4 but indicates that the pulmonary nodules are relatively stable. The maximum SUV in the liver was 3.31 and on the October 2018 scan was 5.1. did compare the reports and felt that Soledad had had some improvement in her overall disease. We of course are waiting for the final review and updated report. These findings have been discussed with Mrs Santamaria she understands that it will be compared with the one in October. She has had persistent right arm numbness and has an appointment with Dr Matthew soto for followup on that. She now has noticed right leg numbness. It comes and goes but seems to be lasting longer when it does come. She has had no TIA symptoms. MRI scan of the head done on 05/07/2019 showed no evidence of brain metastases. Due to hyperintense enhancing 9 x 6 mm intrapituitary lesion in the left aspect of pitiutary. Normal optic chasm. Slight [id number] mass effect on the infundibulum. Consistent with a pituitary adenoma. 10 mm metastatic C2 vertebral body lesions likely previously treated. 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 Patient denies any recent trauma to her hand or elbow order left shoulder. Patient denies any chest pain, denies any shortness of breath. Denies any fever chills denies any nausea vomiting diarrhea diarrhea constipation. Tolerating systemic therapy with carboplatin/gemcitabine/Herceptin well Medications: Claritin 1 Tablet (of 10 mg) Oral daily, Magnesium 1 Tablet Oral daily PRN, Multivitamin Adults 1 Tablet Oral daily PRN, Potassium 1 Tablet (of 99 mg) Oral daily PRN, Prevacid 1 Capsule (of 30 mg) Capsule Delayed Release Oral daily, Vitamin C 1 Tablet Oral daily PRN Allergies: Codeine Sulfate Review of Systems: Constitutional - Appetite is fair, weight is stable. Energy level is fair. Pt reports frequent chills, ENMT - No sinus congestion/drainage. No mouth sores. No sore throat or difficulty swallowing, Hematologic/Lymphatic - No abnormal bruising or bleeding, Respiratory - Positive for shortness of breath, but states that it is not a new problem, Cardiovascular - No anginal chest pain, palpitations or orthopnea, Gastrointestinal - No nausea, vomiting, diarrhea, GI bleeding, or constipation. No change in bowel habits, no heartburn or early satiety, Genitourinary (F) - No hematuria, dysuria, increased frequency, urgency, hesitancy or incontinence, Musculoskeletal - Positive for occasional back pain, Neurologic - No dizziness. Positive for numbness/tingling in left arm (Pt states that it has been going on for several months and is increasing in severity), Psychiatric - No anxiety or depression. Occasional insomnia. Vital Signs: Performed on July 06, 2019 08:18 Height - 67.00 in Weight - 153.6 lbs (HIGH) BSA - 1.81 sq.m BMI - 24.06 Temperature - 97.6 F (LOW) Pulse - 105 /min (HIGH) Respiration - 16 /min BP - 142/69 mm(hg) (HIGH) O2 Sat - 95 % (LOW) Pain - 0 Performance Status: 1 - No physically strenuous activity, but ambulatory and able to carry out light or sedentary work (e.g. office work, light house work). (ECOG) Physical Examination: Respiratory - Lungs are clear, Cardiovascular - Regular rate and rhythm of heart, Extremities - no edema or rash. Lab/Imaging: Test performed on July 03, 2019 09:35 WBC 5.8 10 3/uL RBC 2.67 10 6/uL HGB 9.4 g/dL HCT 30.2 % MCV 113.1 fL MCH 35.2 pg MCHC 31.1 g/dL RDW 17.2 % Platelet Count 107 10 3/cmm MPV 11.1 fL Neutrophils 2.8 10 3/uL Lymphocytes 1.9 10 3/uL Monocytes 1.0 10 3/uL Eosinophils 0.1 10 3/uL Basophils 0.0 10 3/uL Neutrophil % 47.8 % Lymphocyte % 32.8 % Monocyte % 16.7 % Eosinophil % 1.9 % Basophils % 0.3 % Test performed on June 19, 2019 12:40 Sodium 137 mmol/L Potassium 4.2 mmol/L Chloride 100 mmol/L CO2 25 mmol/L Anion Gap 16.2 BUN 8 mg/dL Creatinine 0.7 mg/dL Cr Clearance (Est) 90.9400 mL/min eGFR 84.8 mL/min Glucose 81 mg/dL Calcium 9.5 mg/dL Protein, Total 7.5 g/dL Albumin 4.2 g/dL Globulin 3.3 g/dL Bilirubin, Total 0.3 mg/dL ALT (SGPT) 34 U/L AST (SGOT) 50 U/L Alkaline Phosphatase 158 IU/L Test performed on Apr 27, 2019 12:10 Ferritin 400 ng/mL Iron 83 ug/dL Vitamin B12 720 pg/mL Iron Binding Capacity (TIBC) 292 mcg/dl % Iron Saturation 28.4 % UIBC 209 ug/dL Test performed on Mar 02, 2019 10:45 Vitamin D (25-Hydroxy) 28 ng/mL Impression: History of left breast cancer with metastases to left scapula status post bilateral mastectomy and left axillary lymph node dissection followed by radiation therapy to left chest wall and axilla in 2008 in [facility] in [facility] status post 1 year of Herceptin and paclitaxel and Arimidex for some time status post radiation therapy to left scapula biopsy-proven metastases Medical record obtained from [facility] [place], [place] and ER/ID positive HER-2/oneida overexpression positive it shows #1 presentation with abnormal screening mammogram in 2010. Patient underwent neoadjuvant chemotherapy with weekly paclitaxel and Herceptin for 12 cycle from May Treated with neoadjuvant chemotherapy FEC plus Herceptin from August 2010 through October 2010 In November 2010 she undergoes bilateral simple mastectomy with pathology demonstrating pT2 N2 disease Mrs Santamaria completed 1 year of adjuvant Herceptin therapy with adjuvant aromatase inhibitor In October 2011 patient transitioned to single agent tamoxifen due to poor tolerance of aromatase inhibitor therapy In October 2012 patient presented with left scapular pain imaging demonstrates abnormal bones lesion with biopsy notable for ER/ID positive HER-2/oneida overexpressing breast cancer, staging evaluation demonstrated bilateral pulmonary nodules with mediastinal lymphadenopathy On 12/16/2012 patient initiates letrozole plus Herceptin plus PERJETA on clinical trial On 02/22/2015 patient demonstrates subjective progression of disease within lungs On 02/25/2015 initiated on KADCYLA History of metastatic disease status post chemotherapy with different agents on multiple occasions most recent hormonal agent was letrozole 2.5 mg Elevated tumor markers [place] [address] scan of chest abdomen pelvis done on 10/10/2016 showed multiple bilateral pulmonary nodules consistent with metastatic disease multiple lytic lesion including posterior aspect of T12 vertebral body related dissection of much of right side of T10 vertebra and a large lytic lesion involving the roof of the right acetabulum and right iliac wing and focus of due to dissection lesion in right ischium Stable tiny low-attenuation abnormalities within the liver most likely consistent with multiple tiny cysts Pulmonary emphysema 8 ON 09/24/2016 CA 15.3 342.6 CA 27- 29 493.59 Upper mid back pain and right hip pain due to bone metastases questionable cord compression. She did have restaging with PET/CT on 11/03/2016. The PET/CT revealed multiple FGD avid osteolytic metastases in the left scapula, posterior left 9th rib, T10, T12 and the anterior right acetabulum. Multiple FDG avid metastatic pulmonary nodules represented by 1.9 cm nodule in the posterbasal segment of the right lower lobe with an SUV of 5 and a 1.7 cm nodule in the anterrobasal segment of the left lower lobe with an SUV of 5.1. No hepatic or adrenal metastases identified. Mrs Santamaria was referred to [facility] radiation oncology and underwent radiation to the right hip, left scapula, T10-T12 spine. Her pain resolved with the radiation. offered her palliative chemotherapy with Navelbine and Herceptin. She has agreed to a trial of the chemotherapy. CT scan of the chest August 2017 reported disease progression in the chest and evidence of possible hepatic involvement as well as possible metastatic site involving the left 12th rib. PET/CT scan done on 03/02/2017 showed multiple FDG avid metastatic pulmonary nodules represented by 1.9 cm nodule in the posterior basal segment of right lower lobe with SUV 9.6 compared to 5 on prior exam and a 1.7 cm nodule in the anterior basal segment of left lower lobe with SUV of 4.9 compared to 4.1 on prior exam. There were multiple new hepatic metastatic lesions represented by 1.7 cm nodule with SUV of 5.4 in the anterior superior segment right upper lobe. The PET/CT also reported bone metastasis the left anterior superior iliac spine posteriorly right sacroiliac and T10 T12 right acetabulum, left scapula and posterior left eighth rib. MRI scan of C-spine done on 02/28/2017 showed metastatic lesion of C2 vertebral body. Additional foci of metastatic disease may involve C6 and T1 vertebral bodies multiple disc bulging and spondylosis at C5/C6 and C6/C7 with mild anterior impingement Episode of rectal bleed/abdominal pain probably due to diverticulitis/diverticular bleed CT scan of chest abdomen pelvis done on 03/31/2017 showed pulmonary metastatic disease with variable size of some of the lesion since 10/30/2016 some lesions are smaller and other are larger hepatic and bone metastatic disease similar to the prior exam CT PET scan done on 04/27/2017 showed osseous lesion in left half of C1, and right T1 transverse process and left T1 pedicle, the L1 vertebral body, and L2 vertebral body shows no changes. However, pelvic metastatic disease has worsened with SUV 8.2 compared to 4.1 previously but she is status post radiation therapy to her pelvic bones., Multifocal hepatic metastatic disease is progressed , with SUV 9.8 compared to 5.4 earlier, bilateral hypermetabolic pulmonary nodules are unchanged and right hilar malignant node demonstrated progression Started on lapatinib and Xeloda on 06/08/2017 then it was placed on hold due to radiation therapy to left hip pain. Left posterior hip pain due to bone metastases status post radiation to right hip. Status post radiation therapy to C-spine could complete 9 out of 12 recommended doses because of severe radiation-induced pharyngitis , finished on 06/25/2017 Status palliative post radiation to hip, finished on 06/26/2007 Tumor marker CA-27-29 gone up to 1346.70 on 08/20/2017 from 896.45 on 07/04/2017 Lapatinib and Xeloda discontinued on 08/26/2017 and her treatment plan changed to weekly Herceptin and Taxane 3 weeks on and 1 week off with followup PET/CT after the third cycle. She had GI issues with Zometa ( an episode of nausea vomiting and abdominal pain) so she refuses to repeat the Zometa. She will be offered Xgeva 120 mg every month instead of the Zometa. She began her first cycle of Abraxane and Herceptin on 10/09/2017.Till 12/17/2017 at that time Abraxane was discontinued because of intolerance and last dose of Herceptin was given on 12/31/2017 and because of progressive weakness and fatigue this was also discontinued Patient was referred to [facility] she was seen by Dr. Ramirez on 03/31/2018, many clinical trials are available but due to transportation and financial reason patient could not consider any of them. So palliative chemotherapy with erbulin /Herceptin or carboplatin/gemcitabine/Herceptin was recommended. She did discontinue letrozole on 04/07/2018 and it was recommended that she start on weekly carboplatin AUC 2/gemcitabine 1000 mg/m2/Herceptin day 1, 8 and 15 every 28 days. Along with monthly Xgeva. She began her first cycle on 04/15/2018 .Follow-up CT PET scan done on 07/05/2018 showed hepatic metastatic disease has improved when compared with CT PET scan done in April 2017 and index lesion in the right hepatic dome has now significant central necrosis. There was a mixed response to multiple lung nodules, a left upper lobe nodules is unchanged in size at 1.6 cm but has SUV 3.8 compared to 5.6 before similar improvement is present in the posterior right lower lobe nodule and left lung base nodules. However there are new lesions in the right middle and medial right lobes, the 2 new lesions in the medial right lobe have SUV of 289 and right middle lobe measures 2.6 cm with SUV of 6.8. Multiple osseous lesion seen previously were sclerotic and FDG negative. Suspicious uptake is identified in left femoral neck and proximal right femur and L2. Mrs Santamaria continues with Carboplatin, gemcitabine and Herceptin and monthly Xgeva. She does require intermittent support with growth factors to keep her blood counts up in order to stay on the treatment plan. Follow-up CT PET scan done on 10/25/2018 showed multiple hepatic lesions are seen on prior studies on 07/05/2018 or minimally improved in size and now with improved SUV. Mild improvement in bilateral lung nodules both in size and SUV. Mild improvement is noted in multifocal osseous metastatic disease. Follow-up echocardiogram done on 11/07/2018 showed ejection fraction around 60%. She continued with weekly Carboplatin/gemcitabine and Herceptin. She has completed 11 full cycles and had restaging imaging on 04/21/2019. She had a PET/[facility] at [facility] on 04/21/2019. The PET/CT apparently was not compared to the scan she had on 10/25/2018. A review/comparison and an addended report has been requested. However in the interim we discussed the findings of her April 21, 2019 PET in relation to the October 25, 2018 PET. There were multiple pulmonary nodules present with the largest at the right base posteromedially measuring 4.9 x 2 point centimeters with a maximum SUV of 6.71. The results of that SUV on the October 25, 2018 report is somewhat blurry but looks to be 8.4 possibly 6.4 but indicates that the pulmonary nodules are relatively stable. The maximum SUV in the liver was 3.31 and on the October [address] Pitts did compare the reports and felt that Soledad had had some improvement in her overall disease. We of course are waiting for the final review and updated report. These findings have been discussed with Mrs Santamaria she understands that it will be compared with the one in October. Plan: Discussed with patient regarding her labs white blood count 5.8 hemoglobin 9.4 crit 30.2 platelets 107,000 CMP within normal limits except mildly elevated AST Clinically, patient is doing well, tolerating palliative chemotherapy with carboplatin/gemcitabine/Herceptin well but with expected side effects. We'll proceed with next biweekly dose today and then she will return to clinic in 2 weeks with CBC CMP Mild/moderate anemia, hemoglobin stable we'll continue monitor Mild thrombocytopenia, stable we'll continue to monitor. Left hand, tingling sensation/numbness, probably due to neuropathy, now being evaluated by neurology. Signed By: Kortney Pitts M.D. <<Signature on File>>
[2019-07-17 12:26] LABS: Basophils % 0.4 %; Eosinophils # 0.1 10^3/uL (0.0-0.8); Eosinophils % 1.9 %; Hematocrit 31.8 % (37.0-47.0); Hemoglobin 9.7 g/dL (11.5-15.3); Lymphocytes # 1.4 10^3/uL (0.8-4.8); Lymphocytes % 26.7 %; Mean Corpuscular HGB Conc 30.5 g/dL (30.0-36.0); Mean Corpuscular Hemoglobin 34.5 pg (28.0-34.0); Mean Corpuscular Volume 113.2 fL (81-99); Mean Platelet Volume 11.1 fL (7.4-10.4); Monocytes # 1.1 10^3/uL (0.2-0.9); Monocytes % 19.8 %; Neutrophils # 2.7 10^3/uL (1.8-7.7); Neutrophils % 50.8 %; Nucleated Red Blood Cells % 0 %; Platelet Count 100 10^3/cmm (130-400); Red Blood Count 2.81 10^6/uL (4.1-5.3); White Blood Count 5.4 10^3/uL (4.0-10.0)
[2019-07-17 12:48] LABS: Alanine Aminotransferase 35 U/L (0-33); Albumin Level 4.2 g/dL (3.5-5.2); Alkaline Phosphatase 177 IU/L (35-105); Anion Gap 16.4 (5-19); Aspartate Amino Transferase 48 U/L (0-32); Blood Urea Nitrogen 10 mg/dL (8-23); Calcium 9.4 mg/dL (8.5-10.5); Carbon Dioxide 23 mmol/L (22-29); Chloride 99 mmol/L (98-107); Ferritin 524 ng/mL (15-150); Globulin 3.2 g/dL (1.3-4.6); Glomerular Filtration Rate 84.8 mL/min (90-130); Glucose 111 mg/dL (65-115); Iron 94 ug/dL (37-145); Osmolality Calculated 277 mOsm/kg (285-295); Percent Saturation 29.7 % (20-50); Potassium 3.4 mmol/L (3.5-5.1); Sodium 135 mmol/L (136-145); Total Bilirubin 0.7 mg/dL (0.15-1.2); Total Iron Binding Capacity 316 mcg/dl; Total Protein 7.4 g/dL (6.6-8.7); Unsaturated Iron Binding 222 ug/dL (112-347)
[2019-07-17 13:01] LABS: Vitamin B12 853 pg/mL (232-1245)
[2019-07-17 13:16] LABS: Folate Level 19.3 ng/mL (4.8-37.3)
== END 2019-07-19 23:59 | disposition home or self-care (01) ==
LOC: ONCMED 10:00
PROVIDERS: Family Provider Nurse Practitioner Family; PCP Nurse Practitioner Family; Visit Provider Internal Medicine Hematology & Oncology
DX: Z51.11 Encounter for antineoplastic chemotherapy (principal); C50.512 Malignant neoplasm of lower-outer quadrant of left female breast; Z17.0 Estrogen receptor positive status [ER+]; C79.51 Secondary malignant neoplasm of bone; C78.01 Secondary malignant neoplasm of right lung; C78.02 Secondary malignant neoplasm of left lung; C78.7 Secondary malignant neoplasm of liver and intrahepatic bile duct; D61.810 Antineoplastic chemotherapy induced pancytopenia; Z92.3 Personal history of irradiation; Z79.899 Other long term (current) drug therapy; Z79.818 Long term (current) use of other agents affecting estrogen receptors and estrogen levels
CPT/HCPCS: 36415; 80053; 82607; 82728; 82746; 83540; 83550; 85025; 85045; 96367; 96372; 96413; 96417; 99214; J0897; J1100; J2469; J7040; J7050; J9045; J9201; J9355

== ENCOUNTER → 2019-08-12 08:44 | Outpatient (BNVA) | payer MEDICARE, SELFPAY | PROVIDERS: PCP Nurse Practitioner Family; Visit Provider Nurse Practitioner Family | DX: C78.00 Secondary malignant neoplasm of unspecified lung (principal); C79.51 Secondary malignant neoplasm of bone; C50.512 Malignant neoplasm of lower-outer quadrant of left female breast; D61.810 Antineoplastic chemotherapy induced pancytopenia; Z92.3 Personal history of irradiation; R97.8 Other abnormal tumor markers | CPT/HCPCS: 36415; 80053; 83735; 85025 ==

== ENCOUNTER 2019-08-17 06:48 | Outpatient (RCR) | payer MEDICARE, SELFPAY ==
[2019-07-20 10:59] LABS: Magnesium 2.2 mg/dL (1.7-2.3)
[2019-07-20] MEDS: acetaminophen 325 mg Tablet 650 MG PO (11:20)
[2019-07-20] MEDS: diphenhydrAMINE 25 mg Capsule PO (11:20)
[2019-07-20] MEDS: sodium chloride 0.9% 250 ML 75 ML IV (11:26)
--- NOTE | 2019-07-21 17:15 | ONC FU_ITS ---
Dr. Pitts follow up note Patient: Soledad Santamaria Unit #: [id number]: [id number] Dicatated By: Kortney Pitts M.D.Date of Visit:Jul 20, 2019 Onc Med Follow-up/Prog Note History of Present Illness: Mrs. Santamaria is a 63-year-old female with history of left breast carcinoma with bone metastasis. She presented with an abnormal mammogram in 2010. She had apparently had detected an left-sided breast mass in late 2009. She was referred to Dr Gadiel Reed @ [facility] in [place], [place]. In April 2010, she underwent needle core biopsy of the left breast that did confirm invasive ductal carcinoma histological grade 2/3, ER+ HI+ and Her 2 One[place] immunostain was 3+. She also had biopsy of a left axillary lymph node that was positive for invasive carcinoma with no lymphoid tissue identified. Her exam prior to chemo revealed a 3 cm mass in the extreme upper outer aspect of the left breast and multiple palpable enlarged lymph nodes-the largest was 2 cm and mobile.. Further workup included a breast MRI which did show biopsy proven malignancy in the left upper outer quadrant measuring 3.3 cm with associated axillary and subpectoral adenopathy. She had multiple satellite nodes with the largest measuring 7 cm. She did undergo MRI guided biopsy on June 08, 2010, which did report invasive cancer. She did have CT of the chest and a bone scan which did not show distant disease,. However, there was an enlarged lymph node in the subcutaneous tissues posterior to the left scapula and was biopsied on May 26, 2010 and was negative for malignancy. She under went neoadjuvant chemotherapy with weekly paclitaxel and Herceptin for 12 cycles from May 2010 to August of 2010 followed by FEC and Herceptin through October 2010. She completed 1 year of Herceptin in May 2011 during which time she was also taking an AI. She did have febrile neutropenia requiring admission in September 2010. She underwent bilateral mastectomies( for abnormal mammogram findings in the right breast) at [facility] in [facility] in November 2010. She did have post mastectomy radiation completed on 03/21/2011. She then underwent reconstruction with bilateral breast implants. Unfortunately in November 2011, the left implant became infected and had to be removed. During work up of the implant abnormality she has found to have a metastatic lesion in her left scapula. She did not have any problems until November of 2012 at which time she was having generalized bone pain, which she thought was a combination of Actonel and Anastrozole. The pain did not improve with stopping these medications. She was transitioned to single agent Tamoxifen. A bone scan revealed increased activity along the lateral margin of the left scapula suspicious of osseous metastatic disease when compared to the bone scan from November 2011. This lesion was biopsied on 12/01/2012 and revealed metastatic disease consistent with the breast primary. She did not have radiation at that time as she was not having significant pain. Mrs Santamaria was restaged and found to have diffuse pulmonary nodules and mediastinal lymphadenopathy and in November 2012, she was enrolled in a clinical trial with Herceptin. Perjeta and Letrozole. She had restaging in March 2014 that revealed slight progression of her pulmonary nodules which did not meet criteria for end point results of the clinical trial and was taken off the trial. Her bone scan was reported as stable. She transferred her care to [facility] in [place], [place] to the care of Dr Mehran Jacobson III in May 2014 due to the difficulty traveling to [facility]. The treatment of letrozole, Herceptin and Perjeta was continued until she disease progression and was changed to Kadcyla in February 2015 after restaging imaging revealed disease progression.And she could not tolerate and it was discontinued after 2 or 3 doses. INTERIM HISTORY: Mrs Santamaria was referred to us in October 2016 for followup at which time, Mrs Santamaria was having right upper back pain, left chest wall pain and right groin pain. She did have restaging with PET/CT on 11/03/2016. The PET/CT revealed multiple FGD avid osteolytic metastases in the left scapula, posterior left 9th rib, T10, T12 and the anterior right acetabulum. Multiple FDG avid metastatic pulmonary nodules represented by 1.9 cm nodule in the posterbasal segment of the right lower lobe with an SUV of 5 and a 1.7 cm nodule in the anterrobasal segment of the left lower lobe with an SUV of 5.1. No hepatic or adrenal metastases identified. Mrs Santamaria was referred to [facility] radiation oncology and underwent radiation to the right hip, left scapula, T10-T12 spine. Her pain resolved with the radiation, offered her palliative chemotherapy with Navelbine and Herceptin. She had agreed to a trial of the chemotherapy. Follow-up CT PET scan showed disease progression chemotherapy was discontinued and she was referred to radiation oncology for palliative radiation therapy. After this cycle of radiation therapy, she was started on lapatinib and Xeloda. She was tolerating it well but she was referred to radiation for C-spine metastases management. At that time her chemotherapy was put on hold. She developed right hip pain for which she received palliative radiation therapy to the 06/25/2017. The lapatinib and Xeloda was restarted but her follow-up tumor markers showed evidence of disease progression as the CA-27-29 gone up to 1346.70 on 08/20/2017 compared to 896.45 on 07/04/2017. Her chemotherapy with Xeloda and lapatinib was discontinued and decided to switch her to weekly Herceptin and Taxane , patient doesn't want take steroids so we recommended Herceptin and Abraxane combination. She did develop nausea vomiting abdominal pain with her last dose of Zometa and doesn't want to take Zometa anymore. We will switch her to Xgeva. There was delay in getting started with the Herceptin/Abraxane. She apparently had positive TB test which required workup and eventually was found to be a false positive. She began her first cycle of Herceptin and Abraxane on 10/09/2017.Last dose of Abraxane/Herceptin was given on 12/17/2017 and because of intolerance Abraxane was discontinued and last dose of Herceptin was given on 12/31/2017 Mrs Santamaria was seen by Dr. Ramirez, oncologist at [facility], for clinical trial and many clinical trials available but due to transportation and financial reasons, patient could not consider any of them. Palliative chemotherapy with carboplatin/gemcitabine/Herceptin or eribulin /Herceptin was recommended. Patient had bone scan and CT scan of chest abdomen done at [facility] which showed widespread metastatic disease. She began chemotherapy with weekly carboplatin, gemcitabine and trastuzumab on 04/15/2018 Follow-up CT PET scan done on 07/05/2018 showed improvement in hepatic metastatic disease since April 2017 study Mixed response to multiple bilateral pulmonary lesion Reactive marrow with splenic activity Osseous metastatic disease seen on April 2017 study is sclerotic and FDG negative Mrs Santamaria was admitted to hospital with abdominal pain and diagnosed with diverticulitis treated successfully with antibiotics and during this time, CT scans of chest abdomen pelvis were done on 07/30/2018 . The scans showed extensive pulmonary metastases and hepatic metastases and bone metastases, stable when compared with CT PET scan done in June 2018. She continued with treatment with carboplatin/gemcitabine/Herceptin. Follow-up CT PET scan done on 10/25/2018 showed mild improvement in hepatic, pulmonary and osseous metastatic disease. She has continued with chemotherapy with weekly Carboplatin, gemcitabine and Herceptin. She is receiving Neupogen support on and Saturday after her treatment on Saturday. She was getting the Neupogen at [place], [place]. She tolerated this plan well. She continues to have exertional shortness of breath but states it is no worse than what is has been but it is no better either. She denies any angina type pain but thinks she may have palpatations once in a while with the shortness of breath. She denies orthopnea. She denies any cough. She does have a very strong family history of CAD-both parents with her father's first OR in his 30's and both brothers have CAD. She has never had a diagnosis of CAD. She did have an echocardiogram on 11/07/2018 that reported EF of 60%-unchanged from previous echo. She reported she had a bug bite on her right breast reconstruction site around where the nipple should be. She states it presented as a big blister then it popped and then formed a scabbed area but no drainage. She had been applying triple antibotic ointment to it. She was referred to plastic surgery at [facility] and ulimately underwent right breast implant removal in December 2018, as per patient and there was no evidence of breast cancer in the specimen. Her chemotherapy was delayed because of dental procedure from 12/30/2018 to 02/04/2019. She resumed treatment on 02/04/2019. Echocardiogram done on 03/09/2019 showed Ejection fraction was 68%. Mrs Santamaria has now completed 11 cycles of Carboplatin/gemcitabine/Herceptin. She has continued denosumab as well. Mrs Santamaria underwent restaging PET/Ct on 04/21/2019. The PET/CT apparently was not compared to the scan she had on 10/25/2018. A review/comparison and an addended report has been requested. However in the interim we discussed the findings of her April 21, 2019 PET in relation to the October 25, 2018 PET. There were multiple pulmonary nodules present with the largest at the right base posteromedially measuring 4.9 x 2 point centimeters with a maximum SUV of 6.71. The results of that SUV on the October 25, 2018 report is somewhat blurry but looks to be 8.4 possibly 6.4 but indicates that the pulmonary nodules are relatively stable. The maximum SUV in the liver was 3.31 and on the October 2018 scan was 5.1. did compare the reports and felt that Soledad had had some improvement in her overall disease. We of course are waiting for the final review and updated report. These findings have been discussed with Mrs Santamaria she understands that it will be compared with the one in October. She has had persistent right arm numbness and has an appointment with Dr Matthew soto for followup on that. She now has noticed right leg numbness. It comes and goes but seems to be lasting longer when it does come. She has had no TIA symptoms. MRI scan of the head done on 05/07/2019 showed no evidence of brain metastases. Due to hyperintense enhancing 9 x 6 mm intrapituitary lesion in the left aspect of pitiutary. Normal optic chasm. Slight pbmi-do-dyhgi mass effect on the infundibulum. Consistent with a pituitary adenoma. 10 mm metastatic C2 vertebral body lesions likely previously treated. Came for follow-up, denies any specific complaint except persistent/progressive generalized weakness and fatigue. Patient said she had episode of self-limiting diarrhea for 2 days, no melena or hematochezia, no fever or chills, no abdominal pain. No nausea or vomiting. Now appetite is improving. Tolerating palliative chemotherapy with carbo/gemcitabine/Herceptin well otherwise Medications: Claritin 1 Tablet (of 10 mg) Oral daily, Magnesium 1 Tablet Oral daily PRN, Multivitamin Adults 1 Tablet Oral daily PRN, Potassium 1 Tablet (of 99 mg) Oral daily PRN, Prevacid 1 Capsule (of 30 mg) Capsule Delayed Release Oral daily, Vitamin C 1 Tablet Oral daily PRN Allergies: Codeine Sulfate Review of Systems: Review of Systems is not available for this patient. Vital Signs: Performed on Jul 20, 2019 10:04 Height - 67.00 in Weight - 154.4 lbs (HIGH) BSA - 1.81 sq.m BMI - 24.18 Temperature - 98.2 F (LOW) Pulse - 83 /min Respiration - 26 /min BP - 138/70 mm(hg) O2 Sat - 92 % (LOW) Pain - 0 Performance Status: 1 - No physically strenuous activity, but ambulatory and able to carry out light or sedentary work (e.g. office work, light house work). (ECOG) Physical Examination: Respiratory - Lungs are clear, Cardiovascular - Regular rate and rhythm of heart, Extremities - no visible edema. Lab/Imaging: Test performed on July 17, 2019 10:00 Ferritin 524 ng/mL Iron 94 mcg/dL Sodium 135 mmol/L Vitamin B12 853 pg/mL Iron Binding Capacity (TIBC) 316 mcg/dl Potassium 3.4 mmol/L % Iron Saturation 29.7 % Chloride 99 mmol/L CO2 23 mmol/L UIBC 222 mcg/dL Anion Gap 16.4 BUN 10 mg/dL Creatinine 0.7 mg/dL Cr Clearance (Est) 90.9400 mL/min eGFR 84.8 mL/min Glucose 111 mg/dL Calcium 9.4 mg/dL Protein, Total 7.4 g/dL Albumin 4.2 g/dL Globulin 3.2 g/dL Bilirubin, Total 0.7 mg/dL ALT (SGPT) 35 U/L AST (SGOT) 48 U/L Alkaline Phosphatase 177 IU/L WBC 5.4 10 3/uL RBC 2.81 10 6/uL HGB 9.7 g/dL HCT 31.8 % MCV 113.2 fL MCH 34.5 pg MCHC 30.5 g/dL RDW 17.0 % Platelet Count 100 10 3/cmm MPV 11.1 fL Neutrophils 2.7 10 3/uL Lymphocytes 1.4 10 3/uL Monocytes 1.1 10 3/uL Eosinophils 0.1 10 3/uL Basophils 0.0 10 3/uL Neutrophil % 50.8 % Lymphocyte % 26.7 % Monocyte % 19.8 % Eosinophil % 1.9 % Basophils % 0.4 % Test performed on Mar 02, 2019 10:45 Vitamin D (25-Hydroxy) 28 ng/mL Impression: History of left breast cancer with metastases to left scapula status post bilateral mastectomy and left axillary lymph node dissection followed by radiation therapy to left chest wall and axilla in 2008 in [facility] in [facility] status post 1 year of Herceptin and paclitaxel and Arimidex for some time status post radiation therapy to left scapula biopsy-proven metastases Medical record obtained from [facility] [place], [place] and ER/HI positive HER-2/oneida overexpression positive it shows #1 presentation with abnormal screening mammogram in 2010. Patient underwent neoadjuvant chemotherapy with weekly paclitaxel and Herceptin for 12 cycle from May Treated with neoadjuvant chemotherapy FEC plus Herceptin from August 2010 through October 2010 In November 2010 she undergoes bilateral simple mastectomy with pathology demonstrating pT2 N2 disease Mrs Santamaria completed 1 year of adjuvant Herceptin therapy with adjuvant aromatase inhibitor In October 2011 patient transitioned to single agent tamoxifen due to poor tolerance of aromatase inhibitor therapy In October 2012 patient presented with left scapular pain imaging demonstrates abnormal bones lesion with biopsy notable for ER/HI positive HER-2/oneida overexpressing breast cancer, staging evaluation demonstrated bilateral pulmonary nodules with mediastinal lymphadenopathy On 12/16/2012 patient initiates letrozole plus Herceptin plus PERJETA on clinical trial On 02/22/2015 patient demonstrates subjective progression of disease within lungs On 02/25/2015 initiated on KADCYLA History of metastatic disease status post chemotherapy with different agents on multiple occasions most recent hormonal agent was letrozole 2.5 mg Elevated tumor markers [place] [address] scan of chest abdomen pelvis done on 10/10/2016 showed multiple bilateral pulmonary nodules consistent with metastatic disease multiple lytic lesion including posterior aspect of T12 vertebral body related dissection of much of right side of T10 vertebra and a large lytic lesion involving the roof of the right acetabulum and right iliac wing and focus of due to dissection lesion in right ischium Stable tiny low-attenuation abnormalities within the liver most likely consistent with multiple tiny cysts Pulmonary emphysema 8 ON 09/24/2016 CA 15.3 342.6 CA 27- 29 493.59 Upper mid back pain and right hip pain due to bone metastases questionable cord compression. She did have restaging with PET/CT on 11/03/2016. The PET/CT revealed multiple FGD avid osteolytic metastases in the left scapula, posterior left 9th rib, T10, T12 and the anterior right acetabulum. Multiple FDG avid metastatic pulmonary nodules represented by 1.9 cm nodule in the posterbasal segment of the right lower lobe with an SUV of 5 and a 1.7 cm nodule in the anterrobasal segment of the left lower lobe with an SUV of 5.1. No hepatic or adrenal metastases identified. Mrs Santamaria was referred to [facility] and underwent radiation to the right hip, left scapula, T10-T12 spine. Her pain resolved with the radiation. offered her palliative chemotherapy with Navelbine and Herceptin. She has agreed to a trial of the chemotherapy. CT scan of the chest August 2017 reported disease progression in the chest and evidence of possible hepatic involvement as well as possible metastatic site involving the left 12th rib. PET/CT scan done on 03/02/2017 showed multiple FDG avid metastatic pulmonary nodules represented by 1.9 cm nodule in the posterior basal segment of right lower lobe with SUV 9.6 compared to 5 on prior exam and a 1.7 cm nodule in the anterior basal segment of left lower lobe with SUV of 4.9 compared to 4.1 on prior exam. There were multiple new hepatic metastatic lesions represented by 1.7 cm nodule with SUV of 5.4 in the anterior superior segment right upper lobe. The PET/CT also reported bone metastasis the left anterior superior iliac spine posteriorly right sacroiliac and T10 T12 right acetabulum, left scapula and posterior left eighth rib. MRI scan of C-spine done on 02/28/2017 showed metastatic lesion of C2 vertebral body. Additional foci of metastatic disease may involve C6 and T1 vertebral bodies multiple disc bulging and spondylosis at C5/C6 and C6/C7 with mild anterior impingement Episode of rectal bleed/abdominal pain probably due to diverticulitis/diverticular bleed CT scan of chest abdomen pelvis done on 03/31/2017 showed pulmonary metastatic disease with variable size of some of the lesion since 10/30/2016 some lesions are smaller and other are larger hepatic and bone metastatic disease similar to the prior exam CT PET scan done on 04/27/2017 showed osseous lesion in left half of C1, and right T1 transverse process and left T1 pedicle, the L1 vertebral body, and L2 vertebral body shows no changes. However, pelvic metastatic disease has worsened with SUV 8.2 compared to 4.1 previously but she is status post radiation therapy to her pelvic bones., Multifocal hepatic metastatic disease is progressed , with SUV 9.8 compared to 5.4 earlier, bilateral hypermetabolic pulmonary nodules are unchanged and right hilar malignant node demonstrated progression Started on lapatinib and Xeloda on 06/08/2017 then it was placed on hold due to radiation therapy to left hip pain. Left posterior hip pain due to bone metastases status post radiation to right hip. Status post radiation therapy to C-spine could complete 9 out of 12 recommended doses because of severe radiation-induced pharyngitis , finished on 06/25/2017 Status palliative post radiation to hip, finished on 06/26/2007 Tumor marker CA-27-29 gone up to 1346.70 on 08/20/2017 from 896.45 on 07/04/2017 Lapatinib and Xeloda discontinued on 08/26/2017 and her treatment plan changed to weekly Herceptin and Taxane 3 weeks on and 1 week off with followup PET/CT after the third cycle. She had GI issues with Zometa ( an episode of nausea vomiting and abdominal pain) so she refuses to repeat the Zometa. She will be offered Xgeva 120 mg every month instead of the Zometa. She began her first cycle of Abraxane and Herceptin on 10/09/2017.Till 12/17/2017 at that time Abraxane was discontinued because of intolerance and last dose of Herceptin was given on 12/31/2017 and because of progressive weakness and fatigue this was also discontinued Patient was referred to [facility] she was seen by Dr. Ramirez on 03/31/2018, many clinical trials are available but due to transportation and financial reason patient could not consider any of them. So palliative chemotherapy with erbulin /Herceptin or carboplatin/gemcitabine/Herceptin was recommended. She did discontinue letrozole on 04/07/2018 and it was recommended that she start on weekly carboplatin AUC 2/gemcitabine 1000 mg/m2/Herceptin day 1, 8 and 15 every 28 days. Along with monthly Xgeva. She began her first cycle on 04/15/2018 .Follow-up CT PET scan done on 07/05/2018 showed hepatic metastatic disease has improved when compared with CT PET scan done in April 2017 and index lesion in the right hepatic dome has now significant central necrosis. There was a mixed response to multiple lung nodules, a left upper lobe nodules is unchanged in size at 1.6 cm but has SUV 3.8 compared to 5.6 before similar improvement is present in the posterior right lower lobe nodule and left lung base nodules. However there are new lesions in the right middle and medial right lobes, the 2 new lesions in the medial right lobe have SUV of 289 and right middle lobe measures 2.6 cm with SUV of 6.8. Multiple osseous lesion seen previously were sclerotic and FDG negative. Suspicious uptake is identified in left femoral neck and proximal right femur and L2. Mrs Santamaria continues with Carboplatin, gemcitabine and Herceptin and monthly Xgeva. She does require intermittent support with growth factors to keep her blood counts up in order to stay on the treatment plan. Follow-up CT PET scan done on 10/25/2018 showed multiple hepatic lesions are seen on prior studies on 07/05/2018 or minimally improved in size and now with improved SUV. Mild improvement in bilateral lung nodules both in size and SUV. Mild improvement is noted in multifocal osseous metastatic disease. Follow-up echocardiogram done on 11/07/2018 showed ejection fraction around 60%. She continued with weekly Carboplatin/gemcitabine and Herceptin. She has completed 11 full cycles and had restaging imaging on 04/21/2019. She had a PET/CT at [facility] on 04/21/2019. The PET/CT apparently was not compared to the scan she had on 10/25/2018. A review/comparison and an addended report has been requested. However in the interim we discussed the findings of her April 21, 2019 PET in relation to the October 25, 2018 PET. There were multiple pulmonary nodules present with the largest at the right base posteromedially measuring 4.9 x 2 point centimeters with a maximum SUV of 6.71. The results of that SUV on the October 25, 2018 report is somewhat blurry but looks to be 8.4 possibly 6.4 but indicates that the pulmonary nodules are relatively stable. The maximum SUV in the liver was 3.31 and on the October [address] Pitts did compare the reports and felt that Soledad had had some improvement in her overall disease. We of course are waiting for the final review and updated report. These findings have been discussed with Mrs Santamaria she understands that it will be compared with the one in October. Plan: Discussed with patient regarding her labs white blood count 5.4 hemoglobin 9.7 crit 31.8 platelets 100,000 CMP within normal limit except potassium 3.4 AST 48, and her anemia workup shows ferritin 524 iron saturation 29.7 iron 94 TIBC 316 Clinically, patient is doing reasonably well, tolerating palliative therapy with Herceptin/carbo [place]/gemcitabine well but with expected side effects. Now with progressive mild thrombocytopenia. We'll consider 10% dose reduction in gemcitabine dose to minimize thrombocytopenia and We'll proceed with the next dose today and then she will return to clinic in 2 weeks with CBC CMP, if reasonable next dose. As far as generalized weakness and fatigue is concern, appears multifactorial including systemic chemotherapy other possibility could be recent episode of self-limiting diarrhea now with mild hypokalemia, with give her potassium supplement and also check her magnesium level. Patient is also on magnesium supplement that can be causing diarrhea, patient was advised to discontinue magnesium if her magnesium level is within normal range. And also advised to maintain hydration and also consider [id number] multivitamins. Signed By: Kortney Pitts M.D. <<Signature on File>>
[2019-07-31 11:52] LABS: Basophils % 0.5 %; Eosinophils # 0.2 10^3/uL (0.0-0.8); Eosinophils % 4.8 %; Hematocrit 29.7 % (37.0-47.0); Lymphocytes # 1.5 10^3/uL (0.8-4.8); Lymphocytes % 34.7 %; Mean Corpuscular HGB Conc 30.3 g/dL (30.0-36.0); Mean Corpuscular Hemoglobin 34.5 pg (28.0-34.0); Mean Corpuscular Volume 113.8 fL (81-99); Mean Platelet Volume 11.6 fL (7.4-10.4); Monocytes # 0.8 10^3/uL (0.2-0.9); Neutrophils # 1.8 10^3/uL (1.8-7.7); Neutrophils % 40.5 %; Nucleated Red Blood Cells % 0 %; Platelet Count 109 10^3/cmm (130-400); Red Blood Count 2.61 10^6/uL (4.1-5.3); White Blood Count 4.4 10^3/uL (4.0-10.0)
[2019-07-31 12:12] LABS: Alanine Aminotransferase 38 U/L (0-33); Albumin Level 3.9 g/dL (3.5-5.2); Alkaline Phosphatase 165 IU/L (35-105); Anion Gap 16.9 (5-19); Aspartate Amino Transferase 53 U/L (0-32); Blood Urea Nitrogen 9 mg/dL (8-23); Calcium 9.5 mg/dL (8.5-10.5); Carbon Dioxide 25 mmol/L (22-29); Chloride 101 mmol/L (98-107); Globulin 3.3 g/dL (1.3-4.6); Glomerular Filtration Rate 84.8 mL/min (90-130); Glucose 61 mg/dL (65-115); Magnesium 2.1 mg/dL (1.7-2.3); Osmolality Calculated 282 mOsm/kg (285-295); Potassium 3.9 mmol/L (3.5-5.1); Sodium 139 mmol/L (136-145); Total Bilirubin 0.4 mg/dL (0.15-1.2); Total Protein 7.2 g/dL (6.6-8.7)
[2019-08-03] MEDS: acetaminophen 325 mg Tablet 650 MG PO (09:35)
[2019-08-03] MEDS: diphenhydrAMINE 25 mg Capsule PO (09:35)
[2019-08-03] MEDS: sodium chloride 0.9% 250 ML 75 ML IV (09:35)
[2019-08-03] MEDS: denosumab 120 mg SDV SUBCUT (10:04)
--- NOTE | 2019-08-03 15:40 | ONC FU_ITS ---
Dr. Pitts follow up note Patient: Soledad Santamaria Unit #: [id number]: [id number] Dicatated By: Kortney Pitts M.D.Date of Visit:Aug 03, 2019 Onc Med Follow-up/Prog Note History of Present Illness: Mrs. Santamaria is a 63-year-old female with history of left breast carcinoma with bone metastasis. She presented with an abnormal mammogram in 2010. She had apparently had detected an left-sided breast mass in late 2009. She was referred to Dr Gadiel Reed @ [facility] in [place], [place]. In April 2010, she underwent needle core biopsy of the left breast that did confirm invasive ductal carcinoma histological grade 2/3, ER+ MI+ and Her 2 Oneida immunostain was 3+. She also had biopsy of a left axillary lymph node that was positive for invasive carcinoma with no lymphoid tissue identified. Her exam prior to chemo revealed a 3 cm mass in the extreme upper outer aspect of the left breast and multiple palpable enlarged lymph nodes-the largest was 2 cm and mobile.. Further workup included a breast MRI which did show biopsy proven malignancy in the left upper outer quadrant measuring 3.3 cm with associated axillary and subpectoral adenopathy. She had multiple satellite nodes with the largest measuring 7 cm. She did undergo MRI guided biopsy on June 08, 2010, which did report invasive cancer. She did have CT of the chest and a bone scan which did not show distant disease,. However, there was an enlarged lymph node in the subcutaneous tissues posterior to the left scapula and was biopsied on May 26, 2010 and was negative for malignancy. She under went neoadjuvant chemotherapy with weekly paclitaxel and Herceptin for 12 cycles from May 2010 to August of 2010 followed by FEC and Herceptin through October 2010. She completed 1 year of Herceptin in May 2011 during which time she was also taking an AI. She did have febrile neutropenia requiring admission in September 2010. She underwent bilateral mastectomies( for abnormal mammogram findings in the right breast) at [facility] in [facility] in November 2010. She did have post mastectomy radiation completed on 03/21/2011. She then underwent reconstruction with bilateral breast implants. Unfortunately in November 2011, the left implant became infected and had to be removed. During work up of the implant abnormality she has found to have a metastatic lesion in her left scapula. She did not have any problems until November of 2012 at which time she was having generalized bone pain, which she thought was a combination of Actonel and Anastrozole. The pain did not improve with stopping these medications. She was transitioned to single agent Tamoxifen. A bone scan revealed increased activity along the lateral margin of the left scapula suspicious of osseous metastatic disease when compared to the bone scan from November 2011. This lesion was biopsied on 12/01/2012 and revealed metastatic disease consistent with the breast primary. She did not have radiation at that time as she was not having significant pain. Mrs Santamaria was restaged and found to have diffuse pulmonary nodules and mediastinal lymphadenopathy and in November 2012, she was enrolled in a clinical trial with Herceptin. Perjeta and Letrozole. She had restaging in March 2014 that revealed slight progression of her pulmonary nodules which did not meet criteria for end point results of the clinical trial and was taken off the trial. Her bone scan was reported as stable. She transferred her care to [facility] in [place], [place] to the care of Dr Mehran Jacobson III in May 2014 due to the difficulty traveling to [facility]. The treatment of letrozole, Herceptin and Perjeta was continued until she disease progression and was changed to Kadcyla in February 2015 after restaging imaging revealed disease progression.And she could not tolerate and it was discontinued after 2 or 3 doses. INTERIM HISTORY: Mrs Santamaria was referred to us in October 2016 for followup at which time, Mrs Santamaria was having right upper back pain, left chest wall pain and right groin pain. She did have restaging with PET/CT on 11/03/2016. The PET/CT revealed multiple FGD avid osteolytic metastases in the left scapula, posterior left 9th rib, T10, T12 and the anterior right acetabulum. Multiple FDG avid metastatic pulmonary nodules represented by 1.9 cm nodule in the posterbasal segment of the right lower lobe with an SUV of 5 and a 1.7 cm nodule in the anterrobasal segment of the left lower lobe with an SUV of 5.1. No hepatic or adrenal metastases identified. Mrs Santamaria was referred to [facility] radiation oncology and underwent radiation to the right hip, left scapula, T10-T12 spine. Her pain resolved with the radiation, offered her palliative chemotherapy with Navelbine and Herceptin. She had agreed to a trial of the chemotherapy. Follow-up CT PET scan showed disease progression chemotherapy was discontinued and she was referred to radiation oncology for palliative radiation therapy. After this cycle of radiation therapy, she was started on lapatinib and Xeloda. She was tolerating it well but she was referred to radiation for C-spine metastases management. At that time her chemotherapy was put on hold. She developed right hip pain for which she received palliative radiation therapy to the 06/25/2017. The lapatinib and Xeloda was restarted but her follow-up tumor markers showed evidence of disease progression as the CA-27-29 gone up to 1346.70 on 08/20/2017 compared to 896.45 on 07/04/2017. Her chemotherapy with Xeloda and lapatinib was discontinued and decided to switch her to weekly Herceptin and Taxane , patient doesn't want take steroids so we recommended Herceptin and Abraxane combination. She did develop nausea vomiting abdominal pain with her last dose of Zometa and doesn't want to take Zometa anymore. We will switch her to Xgeva. There was delay in getting started with the Herceptin/Abraxane. She apparently had positive TB test which required workup and eventually was found to be a false positive. She began her first cycle of Herceptin and Abraxane on 10/09/2017.Last dose of Abraxane/Herceptin was given on 12/17/2017 and because of intolerance Abraxane was discontinued and last dose of Herceptin was given on 12/31/2017 Mrs Santamaria was seen by Dr. Ramirez, oncologist at [facility], for clinical trial and many clinical trials available but due to transportation and financial reasons, patient could not consider any of them. Palliative chemotherapy with carboplatin/gemcitabine/Herceptin or eribulin /Herceptin was recommended. Patient had bone scan and CT scan of chest abdomen done at [facility] which showed widespread metastatic disease. She began chemotherapy with weekly carboplatin, gemcitabine and trastuzumab on 04/15/2018 Follow-up CT PET scan done on 07/05/2018 showed improvement in hepatic metastatic disease since April 2017 study Mixed response to multiple bilateral pulmonary lesion Reactive marrow with splenic activity Osseous metastatic disease seen on April 2017 study is sclerotic and FDG negative Mrs Santamaria was admitted to hospital with abdominal pain and diagnosed with diverticulitis treated successfully with antibiotics and during this time, CT scans of chest abdomen pelvis were done on 07/30/2018 . The scans showed extensive pulmonary metastases and hepatic metastases and bone metastases, stable when compared with CT PET scan done in June 2018. She continued with treatment with carboplatin/gemcitabine/Herceptin. Follow-up CT PET scan done on 10/25/2018 showed mild improvement in hepatic, pulmonary and osseous metastatic disease. She has continued with chemotherapy with weekly Carboplatin, gemcitabine and Herceptin. She is receiving Neupogen support on and Saturday after her treatment on Saturday. She was getting the Neupogen at [place], [place]. She tolerated this plan well. She continues to have exertional shortness of breath but states it is no worse than what is has been but it is no better either. She denies any angina type pain but thinks she may have palpatations once in a while with the shortness of breath. She denies orthopnea. She denies any cough. She does have a very strong family history of CAD-both parents with her father's first SD in his 30's and both brothers have CAD. She has never had a diagnosis of CAD. She did have an echocardiogram on 11/07/2018 that reported EF of 60%-unchanged from previous echo. She reported she had a bug bite on her right breast reconstruction site around where the nipple should be. She states it presented as a big blister then it popped and then formed a scabbed area but no drainage. She had been applying triple antibotic ointment to it. She was referred to plastic surgery at [facility] and ulimately underwent right breast implant removal in December 2018, as per patient and there was no evidence of breast cancer in the specimen. Her chemotherapy was delayed because of dental procedure from 12/30/2018 to 02/04/2019. She resumed treatment on 02/04/2019. Echocardiogram done on 03/09/2019 showed Ejection fraction was 68%. Mrs Santamaria has now completed 11 cycles of Carboplatin/gemcitabine/Herceptin. She has continued denosumab as well. Mrs Santamaria underwent restaging PET/Ct on 04/21/2019. The PET/CT apparently was not compared to the scan she had on 10/25/2018. A review/comparison and an addended report has been requested. However in the interim we discussed the findings of her April 21, 2019 PET in relation to the October 25, 2018 PET. There were multiple pulmonary nodules present with the largest at the right base posteromedially measuring 4.9 x 2 point centimeters with a maximum SUV of 6.71. The results of that SUV on the October 25, 2018 report is somewhat blurry but looks to be 8.4 possibly 6.4 but indicates that the pulmonary nodules are relatively stable. The maximum SUV in the liver was 3.31 and on the October 2018 scan was 5.1. did compare the reports and felt that Soledad had had some improvement in her overall disease. We of course are waiting for the final review and updated report. These findings have been discussed with Mrs Santamaria she understands that it will be compared with the one in October. She has had persistent right arm numbness and has an appointment with Dr Matthew soto for followup on that. She now has noticed right leg numbness. It comes and goes but seems to be lasting longer when it does come. She has had no TIA symptoms. MRI scan of the head done on 05/07/2019 showed no evidence of brain metastases. Due to hyperintense enhancing 9 x 6 mm intrapituitary lesion in the left aspect of pitiutary. Normal optic chasm. Slight [id number]-[id number] mass effect on the infundibulum. Consistent with a pituitary adenoma. 10 mm metastatic C2 vertebral body lesions likely previously treated. Came for follow-up, complaining of generalized weakness and fatigue otherwise no fever chills, no nausea or vomiting, no diarrhea constipation, no palpitation no shortness of breath. No peripheral numbness. Tolerating systemic therapy with Herceptin/gemcitabine/carboplatin well Medications: Claritin 1 Tablet (of 10 mg) Oral daily, Magnesium 1 Tablet Oral daily PRN, Multivitamin Adults 1 Tablet Oral daily PRN, Potassium 1 Tablet (of 99 mg) Oral daily PRN, Prevacid 1 Capsule (of 30 mg) Capsule Delayed Release Oral daily, Vitamin C 1 Tablet Oral daily PRN Allergies: Codeine Sulfate Review of Systems: Constitutional - Appetite is fair, weight is stable. Energy level is fair. Pt reports frequent chills, ENMT - No sinus congestion/drainage. No mouth sores. No sore throat or difficulty swallowing, Hematologic/Lymphatic - No abnormal bruising or bleeding, Respiratory - Positive for occasional shortness of breath, Cardiovascular - No anginal chest pain, palpitations or orthopnea, Gastrointestinal - No nausea, vomiting, diarrhea, GI bleeding, or constipation. No change in bowel habits, no heartburn or early satiety, Genitourinary (F) - No hematuria, dysuria, increased frequency, urgency, hesitancy or incontinence, Musculoskeletal - Positive for occasional back pain, Neurologic - No dizziness. Positive for numbness/tingling in left arm, Psychiatric - No anxiety or depression. Occasional insomnia. Vital Signs: Performed on Aug 03, 2019 08:30 Height - 67.00 in Weight - 154.2 lbs (LOW) BSA - 1.81 sq.m BMI - 24.15 Temperature - 97.2 F (LOW) Pulse - 80 /min Respiration - 18 /min BP - 119/65 mm(hg) O2 Sat - 94 % (LOW) Pain - 0 Performance Status: 1 - No physically strenuous activity, but ambulatory and able to carry out light or sedentary work (e.g. office work, light house work). (ECOG) Physical Examination: Respiratory - Lungs are clear to auscultation, Cardiovascular - Regular rate and rhythm of heart, Extremities - Trace edema bilaterally. Lab/Imaging: Test performed on July 17, 2019 10:00 Ferritin 524 ng/mL Iron 94 mcg/dL Magnesium 2.2 mg/dL Sodium 135 mmol/L Vitamin B12 853 pg/mL Iron Binding Capacity (TIBC) 316 mcg/dl Potassium 3.4 mmol/L % Iron Saturation 29.7 % Chloride 99 mmol/L CO2 23 mmol/L UIBC 222 mcg/dL Anion Gap 16.4 BUN 10 mg/dL Creatinine 0.7 mg/dL Cr Clearance (Est) 90.9400 mL/min eGFR 84.8 mL/min Glucose 111 mg/dL Calcium 9.4 mg/dL Protein, Total 7.4 g/dL Albumin 4.2 g/dL Globulin 3.2 g/dL Bilirubin, Total 0.7 mg/dL ALT (SGPT) 35 U/L AST (SGOT) 48 U/L Alkaline Phosphatase 177 IU/L WBC 5.4 10 3/uL RBC 2.81 10 6/uL HGB 9.7 g/dL HCT 31.8 % MCV 113.2 fL MCH 34.5 pg MCHC 30.5 g/dL RDW 17.0 % Platelet Count 100 10 3/cmm MPV 11.1 fL Neutrophils 2.7 10 3/uL Lymphocytes 1.4 10 3/uL Monocytes 1.1 10 3/uL Eosinophils 0.1 10 3/uL Basophils 0.0 10 3/uL Neutrophil % 50.8 % Lymphocyte % 26.7 % Monocyte % 19.8 % Eosinophil % 1.9 % Basophils % 0.4 % Test performed on Mar 02, 2019 10:45 Vitamin D (25-Hydroxy) 28 ng/mL Impression: History of left breast cancer with metastases to left scapula status post bilateral mastectomy and left axillary lymph node dissection followed by radiation therapy to left chest wall and axilla in [address] [facility] in [facility] status post 1 year of Herceptin and paclitaxel and Arimidex for some time status post radiation therapy to left scapula biopsy-proven metastases Medical record obtained from [facility] [place], [place] and ER/MI positive HER-2/oneida overexpression positive it shows #1 presentation with abnormal screening mammogram in 2010. Patient underwent neoadjuvant chemotherapy with weekly paclitaxel and Herceptin for 12 cycle from May Treated with neoadjuvant chemotherapy FEC plus Herceptin from August 2010 through October 2010 In November 2010 she undergoes bilateral simple mastectomy with pathology demonstrating pT2 N2 disease Mrs Santamaria completed 1 year of adjuvant Herceptin therapy with adjuvant aromatase inhibitor In October 2011 patient transitioned to single agent tamoxifen due to poor tolerance of aromatase inhibitor therapy In October 2012 patient presented with left scapular pain imaging demonstrates abnormal bones lesion with biopsy notable for ER/MI positive HER-2/oneida overexpressing breast cancer, staging evaluation demonstrated bilateral pulmonary nodules with mediastinal lymphadenopathy On 12/16/2012 patient initiates letrozole plus Herceptin plus PERJETA on clinical trial On 02/22/2015 patient demonstrates subjective progression of disease within lungs On 02/25/2015 initiated on KADCYLA History of metastatic disease status post chemotherapy with different agents on multiple occasions most recent hormonal agent was letrozole 2.5 mg Elevated tumor [place] [address] scan of chest abdomen pelvis done on 10/10/2016 showed multiple bilateral pulmonary nodules consistent with metastatic disease multiple lytic lesion including posterior aspect of T12 vertebral body related dissection of much of right side of T10 vertebra and a large lytic lesion involving the roof of the right acetabulum and right iliac wing and focus of due to dissection lesion in right ischium Stable tiny low-attenuation abnormalities within the liver most likely consistent with multiple tiny cysts Pulmonary emphysema 8 ON 09/24/2016 CA 15.3 342.6 CA 27- 29 493.59 Upper mid back pain and right hip pain due to bone metastases questionable cord compression. She did have restaging with PET/CT on 11/03/2016. The PET/CT revealed multiple FGD avid osteolytic metastases in the left scapula, posterior left 9th rib, T10, T12 and the anterior right acetabulum. Multiple FDG avid metastatic pulmonary nodules represented by 1.9 cm nodule in the posterbasal segment of the right lower lobe with an SUV of 5 and a 1.7 cm nodule in the anterrobasal segment of the left lower lobe with an SUV of 5.1. No hepatic or adrenal metastases identified. Mrs Santamaria was referred to [facility] radiation oncology and underwent radiation to the right hip, left scapula, T10-T12 spine. Her pain resolved with the radiation. offered her palliative chemotherapy with Navelbine and Herceptin. She has agreed to a trial of the chemotherapy. CT scan of the chest August 2017 reported disease progression in the chest and evidence of possible hepatic involvement as well as possible metastatic site involving the left 12th rib. PET/CT scan done on 03/02/2017 showed multiple FDG avid metastatic pulmonary nodules represented by 1.9 cm nodule in the posterior basal segment of right lower lobe with SUV 9.6 compared to 5 on prior exam and a 1.7 cm nodule in the anterior basal segment of left lower lobe with SUV of 4.9 compared to 4.1 on prior exam. There were multiple new hepatic metastatic lesions represented by 1.7 cm nodule with SUV of 5.4 in the anterior superior segment right upper lobe. The PET/CT also reported bone metastasis the left anterior superior iliac spine posteriorly right sacroiliac and T10 T12 right acetabulum, left scapula and posterior left eighth rib. MRI scan of C-spine done on 02/28/2017 showed metastatic lesion of C2 vertebral body. Additional foci of metastatic disease may involve C6 and T1 vertebral bodies multiple disc bulging and spondylosis at C5/C6 and C6/C7 with mild anterior impingement Episode of rectal bleed/abdominal pain probably due to diverticulitis/diverticular bleed CT scan of chest abdomen pelvis done on 03/31/2017 showed pulmonary metastatic disease with variable size of some of the lesion since 10/30/2016 some lesions are smaller and other are larger hepatic and bone metastatic disease similar to the prior exam CT PET scan done on 04/27/2017 showed osseous lesion in left half of C1, and right T1 transverse process and left T1 pedicle, the L1 vertebral body, and L2 vertebral body shows no changes. However, pelvic metastatic disease has worsened with SUV 8.2 compared to 4.1 previously but she is status post radiation therapy to her pelvic bones., Multifocal hepatic metastatic disease is progressed , with SUV 9.8 compared to 5.4 earlier, bilateral hypermetabolic pulmonary nodules are unchanged and right hilar malignant node demonstrated progression Started on lapatinib and Xeloda on 06/08/2017 then it was placed on hold due to radiation therapy to left hip pain. Left posterior hip pain due to bone metastases status post radiation to right hip. Status post radiation therapy to C-spine could complete 9 out of 12 recommended doses because of severe radiation-induced pharyngitis , finished on 06/25/2017 Status palliative post radiation to hip, finished on 06/26/2007 Tumor marker CA-27-29 gone up to 1346.70 on 08/20/2017 from 896.45 on 07/04/2017 Lapatinib and Xeloda discontinued on 08/26/2017 and her treatment plan changed to weekly Herceptin and Taxane 3 weeks on and 1 week off with followup PET/CT after the third cycle. She had GI issues with Zometa ( an episode of nausea vomiting and abdominal pain) so she refuses to repeat the Zometa. She will be offered Xgeva 120 mg every month instead of the Zometa. She began her first cycle of Abraxane and Herceptin on 10/09/2017.Till 12/17/2017 at that time Abraxane was discontinued because of intolerance and last dose of Herceptin was given on 12/31/2017 and because of progressive weakness and fatigue this was also discontinued Patient was referred to [facility] she was seen by Dr. Ramirez on 03/31/2018, many clinical trials are available but due to transportation and financial reason patient could not consider any of them. So palliative chemotherapy with erbulin /Herceptin or carboplatin/gemcitabine/Herceptin was recommended. She did discontinue letrozole on 04/07/2018 and it was recommended that she start on weekly carboplatin AUC 2/gemcitabine 1000 mg/m2/Herceptin day 1, 8 and 15 every 28 days. Along with monthly Xgeva. She began her first cycle on 04/15/2018 .Follow-up CT PET scan done on 07/05/2018 showed hepatic metastatic disease has improved when compared with CT PET scan done in April 2017 and index lesion in the right hepatic dome has now significant central necrosis. There was a mixed response to multiple lung nodules, a left upper lobe nodules is unchanged in size at 1.6 cm but has SUV 3.8 compared to 5.6 before similar improvement is present in the posterior right lower lobe nodule and left lung base nodules. However there are new lesions in the right middle and medial right lobes, the 2 new lesions in the medial right lobe have SUV of 289 and right middle lobe measures 2.6 cm with SUV of 6.8. Multiple osseous lesion seen previously were sclerotic and FDG negative. Suspicious uptake is identified in left femoral neck and proximal right femur and L2. Mrs Santamaria continues with Carboplatin, gemcitabine and Herceptin and monthly Xgeva. She does require intermittent support with growth factors to keep her blood counts up in order to stay on the treatment plan. Follow-up CT PET scan done on 10/25/2018 showed multiple hepatic lesions are seen on prior studies on 07/05/2018 or minimally improved in size and now with improved SUV. Mild improvement in bilateral lung nodules both in size and SUV. Mild improvement is noted in multifocal osseous metastatic disease. Follow-up echocardiogram done on 11/07/2018 showed ejection fraction around 60%. She continued with weekly Carboplatin/gemcitabine and Herceptin. She has completed 11 full cycles and had restaging imaging on 04/21/2019. She had a PET/CT at [facility] on 04/21/2019. The PET/CT apparently was not compared to the scan she had on 10/25/2018. A review/comparison and an addended report has been requested. However in the interim we discussed the findings of her April 21, 2019 PET in relation to the October 25, 2018 PET. There were multiple pulmonary nodules present with the largest at the right base posteromedially measuring 4.9 x 2 point centimeters with a maximum SUV of 6.71. The results of that SUV on the October 25, 2018 report is somewhat blurry but looks to be 8.4 possibly 6.4 but indicates that the pulmonary nodules are relatively stable. The maximum SUV in the liver was 3.31 and on the October [address] Pitts did compare the reports and felt that Soledad had had some improvement in her overall disease. We of course are waiting for the final review and updated report. These findings have been discussed with Mrs Santamaria she understands that it will be compared with the one in October. Plan: Discussed with patient regarding her labs white blood count 4.4 hemoglobin 9 hematocrit 29.7 platelets 109,000 ANC 1800, CMP within normal limits except for mild elevated ALT/AST Clinically, patient is doing well, with no new signs symptom suggestive of disease progression, tolerating palliative therapy with Herceptin/carboplatin/gemcitabine well. Her blood count looks reasonable, will proceed with next biweekly dose today and then she will return to clinic in 2 weeks with CBC CMP As far as mild progressive anemia is concerned, rule of REJI was discussed including side effects like thrombotic phenomena, hypertension were mentioned but patient declined rather prefer observation and if needed blood transfusion. Mild thrombocytopenia, stable, will continue monitor Signed By: Kortney Pitts M.D. <<Signature on File>>
[2019-08-17] MEDS: sodium chloride 0.9% 250 ML 75 ML IV (09:40)
[2019-08-17] MEDS: acetaminophen 325 mg Tablet 650 MG PO (09:45)
[2019-08-17] MEDS: diphenhydrAMINE 25 mg Capsule PO (09:51)
--- NOTE | 2019-08-17 15:03 | ONC FU_ITS ---
Dr. Pitts follow up note Patient: Soledad Santamaria Unit #: [id number]: 1955 Dicatated By: Kortney Pitts M.D.Date of Visit:Aug 17, 2019 Onc Med Follow-up/Prog Note History of Present Illness: Mrs. Santamaria is a 63-year-old female with history of left breast carcinoma with bone metastasis. She presented with an abnormal mammogram in 2010. She had apparently had detected an left-sided breast mass in late 2009. She was referred to Dr Gadiel Reed @ [facility] in [place], [place]. In April 2010, she underwent needle core biopsy of the left breast that did confirm invasive ductal carcinoma histological grade 2/3, ER+ OH+ and Her 2 [place] immunostain was 3+. She also had biopsy of a left axillary lymph node that was positive for invasive carcinoma with no lymphoid tissue identified. Her exam prior to chemo revealed a 3 cm mass in the extreme upper outer aspect of the left breast and multiple palpable enlarged lymph nodes-the largest was 2 cm and mobile.. Further workup included a breast MRI which did show biopsy proven malignancy in the left upper outer quadrant measuring 3.3 cm with associated axillary and subpectoral adenopathy. She had multiple satellite nodes with the largest measuring 7 cm. She did undergo MRI guided biopsy on June 08, 2010, which did report invasive cancer. She did have CT of the chest and a bone scan which did not show distant disease,. However, there was an enlarged lymph node in the subcutaneous tissues posterior to the left scapula and was biopsied on May 26, 2010 and was negative for malignancy. She under went neoadjuvant chemotherapy with weekly paclitaxel and Herceptin for 12 cycles from May 2010 to August of 2010 followed by FEC and Herceptin through October 2010. She completed 1 year of Herceptin in May 2011 during which time she was also taking an AI. She did have febrile neutropenia requiring admission in September 2010. She underwent bilateral mastectomies( for abnormal mammogram findings in the right breast) at [facility] in [facility] in November 2010. She did have post mastectomy radiation completed on 03/21/2011. She then underwent reconstruction with bilateral breast implants. Unfortunately in November 2011, the left implant became infected and had to be removed. During work up of the implant abnormality she has found to have a metastatic lesion in her left scapula. She did not have any problems until November of 2012 at which time she was having generalized bone pain, which she thought was a combination of Actonel and Anastrozole. The pain did not improve with stopping these medications. She was transitioned to single agent Tamoxifen. A bone scan revealed increased activity along the lateral margin of the left scapula suspicious of osseous metastatic disease when compared to the bone scan from November 2011. This lesion was biopsied on 12/01/2012 and revealed metastatic disease consistent with the breast primary. She did not have radiation at that time as she was not having significant pain. Mrs Santamaria was restaged and found to have diffuse pulmonary nodules and mediastinal lymphadenopathy and in November 2012, she was enrolled in a clinical trial with Herceptin. Perjeta and Letrozole. She had restaging in March 2014 that revealed slight progression of her pulmonary nodules which did not meet criteria for end point results of the clinical trial and was taken off the trial. Her bone scan was reported as stable. She transferred her care to [facility] in [place], [place] to the care of Dr Mehran Jacobson III in May 2014 due to the difficulty traveling to [facility]. The treatment of letrozole, Herceptin and Perjeta was continued until she disease progression and was changed to Kadcyla in February 2015 after restaging imaging revealed disease progression.And she could not tolerate and it was discontinued after 2 or 3 doses. INTERIM HISTORY: Mrs Santamaria was referred to us in October 2016 for followup at which time, Mrs Santamaria was having right upper back pain, left chest wall pain and right groin pain. She did have restaging with PET/CT on 11/03/2016. The PET/CT revealed multiple FGD avid osteolytic metastases in the left scapula, posterior left 9th rib, T10, T12 and the anterior right acetabulum. Multiple FDG avid metastatic pulmonary nodules represented by 1.9 cm nodule in the posterbasal segment of the right lower lobe with an SUV of 5 and a 1.7 cm nodule in the anterrobasal segment of the left lower lobe with an SUV of 5.1. No hepatic or adrenal metastases identified. Mrs Santamaria was referred to [facility] radiation oncology and underwent radiation to the right hip, left scapula, T10-T12 spine. Her pain resolved with the radiation, offered her palliative chemotherapy with Navelbine and Herceptin. She had agreed to a trial of the chemotherapy. Follow-up CT PET scan showed disease progression chemotherapy was discontinued and she was referred to radiation oncology for palliative radiation therapy. After this cycle of radiation therapy, she was started on lapatinib and Xeloda. She was tolerating it well but she was referred to radiation for C-spine metastases management. At that time her chemotherapy was put on hold. She developed right hip pain for which she received palliative radiation therapy to the 06/25/2017. The lapatinib and Xeloda was restarted but her follow-up tumor markers showed evidence of disease progression as the CA-27-29 gone up to 1346.70 on 08/20/2017 compared to 896.45 on 07/04/2017. Her chemotherapy with Xeloda and lapatinib was discontinued and decided to switch her to weekly Herceptin and Taxane , patient doesn't want take steroids so we recommended Herceptin and Abraxane combination. She did develop nausea vomiting abdominal pain with her last dose of Zometa and doesn't want to take Zometa anymore. We will switch her to Xgeva. There was delay in getting started with the Herceptin/Abraxane. She apparently had positive TB test which required workup and eventually was found to be a false positive. She began her first cycle of Herceptin and Abraxane on 10/09/2017.Last dose of Abraxane/Herceptin was given on 12/17/2017 and because of intolerance Abraxane was discontinued and last dose of Herceptin was given on 12/31/2017 Mrs Santamaria was seen by Dr. Ramirez, oncologist at [facility], for clinical trial and many clinical trials available but due to transportation and financial reasons, patient could not consider any of them. Palliative chemotherapy with carboplatin/gemcitabine/Herceptin or eribulin /Herceptin was recommended. Patient had bone scan and CT scan of chest abdomen done at [facility] which showed widespread metastatic disease. She began chemotherapy with weekly carboplatin, gemcitabine and trastuzumab on 04/15/2018 Follow-up CT PET scan done on 07/05/2018 showed improvement in hepatic metastatic disease since April 2017 study Mixed response to multiple bilateral pulmonary lesion Reactive marrow with splenic activity Osseous metastatic disease seen on April 2017 study is sclerotic and FDG negative Mrs Santamaria was admitted to hospital with abdominal pain and diagnosed with diverticulitis treated successfully with antibiotics and during this time, CT scans of chest abdomen pelvis were done on 07/30/2018 . The scans showed extensive pulmonary metastases and hepatic metastases and bone metastases, stable when compared with CT PET scan done in June 2018. She continued with treatment with carboplatin/gemcitabine/Herceptin. Follow-up CT PET scan done on 10/25/2018 showed mild improvement in hepatic, pulmonary and osseous metastatic disease. She has continued with chemotherapy with weekly Carboplatin, gemcitabine and Herceptin. She is receiving Neupogen support on and Saturday after her treatment on Saturday. She was getting the Neupogen at [place], [place]. She tolerated this plan well. She continues to have exertional shortness of breath but states it is no worse than what is has been but it is no better either. She denies any angina type pain but thinks she may have palpatations once in a while with the shortness of breath. She denies orthopnea. She denies any cough. She does have a very strong family history of CAD-both parents with her father's first VA in his 30's and both brothers have CAD. She has never had a diagnosis of CAD. She did have an echocardiogram on 11/07/2018 that reported EF of 60%-unchanged from previous echo. She reported she had a bug bite on her right breast reconstruction site around where the nipple should be. She states it presented as a big blister then it popped and then formed a scabbed area but no drainage. She had been applying triple antibotic ointment to it. She was referred to plastic surgery at [facility] and ulimately underwent right breast implant removal in December 2018, as per patient and there was no evidence of breast cancer in the specimen. Her chemotherapy was delayed because of dental procedure from 12/30/2018 to 02/04/2019. She resumed treatment on 02/04/2019. Echocardiogram done on 03/09/2019 showed Ejection fraction was 68%. Mrs Santamaria has now completed 11 cycles of Carboplatin/gemcitabine/Herceptin. She has continued denosumab as well. Mrs Santamaria underwent restaging PET/Ct on 04/21/2019. The PET/CT apparently was not compared to the scan she had on 10/25/2018. A review/comparison and an addended report has been requested. However in the interim we discussed the findings of her April 21, 2019 PET in relation to the October 25, 2018 PET. There were multiple pulmonary nodules present with the largest at the right base posteromedially measuring 4.9 x 2 point centimeters with a maximum SUV of 6.71. The results of that SUV on the October 25, 2018 report is somewhat blurry but looks to be 8.4 possibly 6.4 but indicates that the pulmonary nodules are relatively stable. The maximum SUV in the liver was 3.31 and on the October 2018 scan was 5.1. did compare the reports and felt that Soledad had had some improvement in her overall disease. We of course are waiting for the final review and updated report. These findings have been discussed with Mrs Santamaria she understands that it will be compared with the one in October. She has had persistent right arm numbness and has an appointment with Dr Matthew soto for followup on that. She now has noticed right leg numbness. It comes and goes but seems to be lasting longer when it does come. She has had no TIA symptoms. MRI scan of the head done on 05/07/2019 showed no evidence of brain metastases. Due to hyperintense enhancing 9 x 6 mm intrapituitary lesion in the left aspect of pitiutary. Normal optic chasm. Slight [id number] mass effect on the infundibulum. Consistent with a pituitary adenoma. 10 mm metastatic C2 vertebral body lesions likely previously treated. Came for follow-up, complaining of generalized weakness and fatigue, but feeling somewhat better with Geritol, otherwise no fever chills, no nausea or vomiting, no diarrhea constipation, no jaundice, no abdominal pain, no shortness of breath or palpitation, tolerating systemic therapy with carboplatin/gemcitabine/Herceptin well Medications: Claritin 1 Tablet (of 10 mg) Oral daily, Magnesium 1 Tablet Oral daily PRN, Multivitamin Adults 1 Tablet Oral daily PRN, Potassium 1 Tablet (of 99 mg) Oral daily PRN, Prevacid 1 Capsule (of 30 mg) Capsule Delayed Release Oral daily, Vitamin C 1 Tablet Oral daily PRN Allergies: Codeine Sulfate Review of Systems: Constitutional - Appetite is fair, weight is stable. Energy level is fair. Positive for chills. No fever, night sweats or hot flashes, ENMT - No sinus congestion/drainage. No mouth sores. No sore throat or difficulty swallowing, Hematologic/Lymphatic - No abnormal bruising or bleeding, Respiratory - Positive for occasional shortness of breath, Cardiovascular - No anginal chest pain, palpitations or orthopnea, Gastrointestinal - No nausea, vomiting, diarrhea, GI bleeding, or constipation. No change in bowel habits, no heartburn or early satiety, Genitourinary (F) - No hematuria, dysuria, increased frequency, urgency, hesitancy or incontinence, Musculoskeletal - Positive for occasional back pain, Neurologic - No dizziness. Positive for numbness/tingling in left arm, Psychiatric - No anxiety or depression. Occasional insomnia. Vital Signs: Performed on Aug 17, 2019 08:32 Height - 67.00 in Weight - 155.6 lbs (HIGH) BSA - 1.82 sq.m BMI - 24.37 Temperature - 97.4 F (LOW) Pulse - 77 /min Respiration - 18 /min BP - 132/78 mm(hg) O2 Sat - 92 % (LOW) Pain - 0 Performance Status: 1 - No physically strenuous activity, but ambulatory and able to carry out light or sedentary work (e.g. office work, light house work). (ECOG) Physical Examination: Respiratory - Lungs are clear, Cardiovascular - Regular rate and rhythm of heart, Gastrointestinal - Soft, bowel sounds present, Extremities - Trace edema. Lab/Imaging: Test performed on Aug 12, 2019 08:44 Glucose 71 mg/dL BUN 12 mg/dL Creatinine 0.8 mg/dL Cr Clearance (Est) 79.57 mL/min Sodium 143 mmol/L Potassium 3.6 mmol/L Chloride 104 mmol/L CO2 25 mmol/L Calcium 9.5 mg/dL Protein, Total 7.2 g/dL Albumin 4.4 g/dL Globulin 2.8 g/dL Bilirubin, Total 0.4 mg/dL Alkaline Phosphatase 173 IU/L AST (SGOT) 53 IU/L ALT (SGPT) 40 IU/L WBC 3.9 10^9/L RBC 2.68 10^12/L HGB 9.6 g/dL HCT 31.4 % MCV 117.2 fl MCH 35.8 pg MCHC 30.6 g/dL RDW 17.2 % Platelet Count 130 10^9/L MPV 11.4 fL Neutrophils (Gran) 1.5 10^9/L Lymphocytes 1.4 10^9/L Monocytes 0.9 10^9/L Eosinophils 0.1 10^9/L Basophils 0.0 10^9/L Manual Lymphocytes 34.4 % Manual Monocytes 22.7 % Manual Eosinophils 3.3 % Manual Basophils 0.5 % Test performed on Jul 31, 2019 08:00 Magnesium 2.1 mg/dL Anion Gap 16.9 eGFR 84.8 mL/min Neutrophil % 40.5 % Lymphocyte % 34.7 % Monocyte % 19.0 % Eosinophil % 4.8 % Basophils % 0.5 % NRBC % 0 % Test performed on July 17, 2019 10:00 Ferritin 524 ng/mL Iron 94 mcg/dL Vitamin B12 853 pg/mL Iron Binding Capacity (TIBC) 316 mcg/dl % Iron Saturation 29.7 % UIBC 222 mcg/dL Test performed on Mar 02, 2019 10:45 Vitamin D (25-Hydroxy) 28 ng/mL Impression: History of left breast cancer with metastases to left scapula status post bilateral mastectomy and left axillary lymph node dissection followed by radiation therapy to left chest wall and axilla in 2008 in [facility] in [facility] status post 1 year of Herceptin and paclitaxel and Arimidex for some time status post radiation therapy to left scapula biopsy-proven metastases Medical record obtained from [facility] [place], [place] and ER/[place] positive HER-2/oneida overexpression positive it shows #1 presentation with abnormal screening mammogram in 2010. Patient underwent neoadjuvant chemotherapy with weekly paclitaxel and Herceptin for 12 cycle from May Treated with neoadjuvant chemotherapy FEC plus Herceptin from August 2010 through October 2010 In November 2010 she undergoes bilateral simple mastectomy with pathology demonstrating pT2 N2 disease Mrs Santamaria completed 1 year of adjuvant Herceptin therapy with adjuvant aromatase inhibitor In October 2011 patient transitioned to single agent tamoxifen due to poor tolerance of aromatase inhibitor therapy In October 2012 patient presented with left scapular pain imaging demonstrates abnormal bones lesion with biopsy notable for ER/OH positive HER-2/oneida overexpressing breast cancer, staging evaluation demonstrated bilateral pulmonary nodules with mediastinal lymphadenopathy On 12/16/2012 patient initiates letrozole plus Herceptin plus PERJETA on clinical trial On 02/22/2015 patient demonstrates subjective progression of disease within lungs On 02/25/2015 initiated on KADCYLA History of metastatic disease status post chemotherapy with different agents on multiple occasions most recent hormonal agent was letrozole 2.5 mg Elevated tumor markers [place] [address] scan of chest abdomen pelvis done on 10/10/2016 showed multiple bilateral pulmonary nodules consistent with metastatic disease multiple lytic lesion including posterior aspect of T12 vertebral body related dissection of much of right side of T10 vertebra and a large lytic lesion involving the roof of the right acetabulum and right iliac wing and focus of due to dissection lesion in right ischium Stable tiny low-attenuation abnormalities within the liver most likely consistent with multiple tiny cysts Pulmonary emphysema 8 ON 09/24/2016 CA 15.3 342.6 CA 27- 29 493.59 Upper mid back pain and right hip pain due to bone metastases questionable cord compression. She did have restaging with PET/CT on 11/03/2016. The PET/CT revealed multiple FGD avid osteolytic metastases in the left scapula, posterior left 9th rib, T10, T12 and the anterior right acetabulum. Multiple FDG avid metastatic pulmonary nodules represented by 1.9 cm nodule in the posterbasal segment of the right lower lobe with an SUV of 5 and a 1.7 cm nodule in the anterrobasal segment of the left lower lobe with an SUV of 5.1. No hepatic or adrenal metastases identified. Mrs Santamaria was referred to [facility] radiation oncology and underwent radiation to the right hip, left scapula, T10-T12 spine. Her pain resolved with the radiation. offered her palliative chemotherapy with Navelbine and Herceptin. She has agreed to a trial of the chemotherapy. CT scan of the chest August 2017 reported disease progression in the chest and evidence of possible hepatic involvement as well as possible metastatic site involving the left 12th rib. PET/CT scan done on 03/02/2017 showed multiple FDG avid metastatic pulmonary nodules represented by 1.9 cm nodule in the posterior basal segment of right lower lobe with SUV 9.6 compared to 5 on prior exam and a 1.7 cm nodule in the anterior basal segment of left lower lobe with SUV of 4.9 compared to 4.1 on prior exam. There were multiple new hepatic metastatic lesions represented by 1.7 cm nodule with SUV of 5.4 in the anterior superior segment right upper lobe. The PET/CT also reported bone metastasis the left anterior superior iliac spine posteriorly right sacroiliac and T10 T12 right acetabulum, left scapula and posterior left eighth rib. MRI scan of C-spine done on 02/28/2017 showed metastatic lesion of C2 vertebral body. Additional foci of metastatic disease may involve C6 and T1 vertebral bodies multiple disc bulging and spondylosis at C5/C6 and C6/C7 with mild anterior impingement Episode of rectal bleed/abdominal pain probably due to diverticulitis/diverticular bleed CT scan of chest abdomen pelvis done on 03/31/2017 showed pulmonary metastatic disease with variable size of some of the lesion since 10/30/2016 some lesions are smaller and other are larger hepatic and bone metastatic disease similar to the prior exam CT PET scan done on 04/27/2017 showed osseous lesion in left half of C1, and right T1 transverse process and left T1 pedicle, the L1 vertebral body, and L2 vertebral body shows no changes. However, pelvic metastatic disease has worsened with SUV 8.2 compared to 4.1 previously but she is status post radiation therapy to her pelvic bones., Multifocal hepatic metastatic disease is progressed , with SUV 9.8 compared to 5.4 earlier, bilateral hypermetabolic pulmonary nodules are unchanged and right hilar malignant node demonstrated progression Started on lapatinib and Xeloda on 06/08/2017 then it was placed on hold due to radiation therapy to left hip pain. Left posterior hip pain due to bone metastases status post radiation to right hip. Status post radiation therapy to C-spine could complete 9 out of 12 recommended doses because of severe radiation-induced pharyngitis , finished on 06/25/2017 Status palliative post radiation to hip, finished on 06/26/2007 Tumor marker CA-27-29 gone up to 1346.70 on 08/20/2017 from 896.45 on 07/04/2017 Lapatinib and Xeloda discontinued on 08/26/2017 and her treatment plan changed to weekly Herceptin and Taxane 3 weeks on and 1 week off with followup PET/CT after the third cycle. She had GI issues with Zometa ( an episode of nausea vomiting and abdominal pain) so she refuses to repeat the Zometa. She will be offered Xgeva 120 mg every month instead of the Zometa. She began her first cycle of Abraxane and Herceptin on 10/09/2017.Till 12/17/2017 at that time Abraxane was discontinued because of intolerance and last dose of Herceptin was given on 12/31/2017 and because of progressive weakness and fatigue this was also discontinued Patient was referred to [facility] she was seen by Dr. Ramirez on 03/31/2018, many clinical trials are available but due to transportation and financial reason patient could not consider any of them. So palliative chemotherapy with erbulin /Herceptin or carboplatin/gemcitabine/Herceptin was recommended. She did discontinue letrozole on 04/07/2018 and it was recommended that she start on weekly carboplatin AUC 2/gemcitabine 1000 mg/m2/Herceptin day 1, 8 and 15 every 28 days. Along with monthly Xgeva. She began her first cycle on 04/15/2018 .Follow-up CT PET scan done on 07/05/2018 showed hepatic metastatic disease has improved when compared with CT PET scan done in April 2017 and index lesion in the right hepatic dome has now significant central necrosis. There was a mixed response to multiple lung nodules, a left upper lobe nodules is unchanged in size at 1.6 cm but has SUV 3.8 compared to 5.6 before similar improvement is present in the posterior right lower lobe nodule and left lung base nodules. However there are new lesions in the right middle and medial right lobes, the 2 new lesions in the medial right lobe have SUV of 289 and right middle lobe measures 2.6 cm with SUV of 6.8. Multiple osseous lesion seen previously were sclerotic and FDG negative. Suspicious uptake is identified in left femoral neck and proximal right femur and L2. Mrs Santamaria continues with Carboplatin, gemcitabine and Herceptin and monthly Xgeva. She does require intermittent support with growth factors to keep her blood counts up in order to stay on the treatment plan. Follow-up CT PET scan done on 10/25/2018 showed multiple hepatic lesions are seen on prior studies on 07/05/2018 or minimally improved in size and now with improved SUV. Mild improvement in bilateral lung nodules both in size and SUV. Mild improvement is noted in multifocal osseous metastatic disease. Follow-up echocardiogram done on 11/07/2018 showed ejection fraction around 60%. She continued with weekly Carboplatin/gemcitabine and Herceptin. She has completed 11 full cycles and had restaging imaging on 04/21/2019. She had a PET/[facility] at [facility] on 04/21/2019. The PET/CT apparently was not compared to the scan she had on 10/25/2018. A review/comparison and an addended report has been requested. However in the interim we discussed the findings of her April 21, 2019 PET in relation to the October 25, 2018 PET. There were multiple pulmonary nodules present with the largest at the right base posteromedially measuring 4.9 x 2 point centimeters with a maximum SUV of 6.71. The results of that SUV on the October 25, 2018 report is somewhat blurry but looks to be 8.4 possibly 6.4 but indicates that the pulmonary nodules are relatively stable. The maximum SUV in the liver was 3.31 and on the October [address] Pitts did compare the reports and felt that Soledad had had some improvement in her overall disease. We of course are waiting for the final review and updated report. These findings have been discussed with Mrs Santamaria she understands that it will be compared with the one in October. Plan: Discussed with patient regarding her labs from August 12, 2019 showed white blood count 3.9 hemoglobin 9.6 crit 31.4 platelets 130,000 CMP within normal limits except ALT 40 AST 53 Clinically, patient is doing well, tolerating palliative therapy with carboplatin/gemcitabine/Herceptin well but with expected side effects e.g. progressive mild pancytopenia. We will proceed with next biweekly dose of carboplatin/gemcitabine/Herceptin today and then she will return to clinic in 2 weeks with CBC CMP and also check TSH level. Patient was advised to exert as tolerated Signed By: Kortney Pitts M.D. <<Signature on File>>
== END 2019-08-18 23:59 | disposition home or self-care (01) ==
LOC: ONCMED 06:48
PROVIDERS: PCP Nurse Practitioner Family; Visit Provider Internal Medicine Hematology & Oncology
DX: Z51.12 Encounter for antineoplastic immunotherapy (principal); Z51.11 Encounter for antineoplastic chemotherapy; C50.812 Malignant neoplasm of overlapping sites of left female breast; C79.51 Secondary malignant neoplasm of bone; C78.01 Secondary malignant neoplasm of right lung; C78.02 Secondary malignant neoplasm of left lung; C78.7 Secondary malignant neoplasm of liver and intrahepatic bile duct; D69.6 Thrombocytopenia, unspecified; D64.9 Anemia, unspecified; D61.811 Other drug-induced pancytopenia; T45.1X5A Adverse effect of antineoplastic and immunosuppressive drugs, initial encounter; E87.6 Hypokalemia; J43.9 Emphysema, unspecified; Z90.13 Acquired absence of bilateral breasts and nipples; Z92.3 Personal history of irradiation; Z92.23 Personal history of estrogen therapy; Z17.0 Estrogen receptor positive status [ER+]; Z79.899 Other long term (current) drug therapy
CPT/HCPCS: 80053; 83735; 84443; 85025; 96367; 96372; 96413; 96417; 99214; J0897; J1100; J2469; J7040; J7050; J9045; J9201; J9355

== ENCOUNTER → 2019-09-11 08:30 | Outpatient (BNVA) | payer MEDICARE, SELFPAY | PROVIDERS: PCP Nurse Practitioner Family; Visit Provider Internal Medicine Medical Oncology | DX: C78.00 Secondary malignant neoplasm of unspecified lung (principal) | CPT/HCPCS: 80053; 85025 ==

== ENCOUNTER 2019-09-14 06:43 | Outpatient (RCR) | payer MEDICARE, SELFPAY ==
[2019-08-28 14:40] LABS: Basophils % 0.7 %; Eosinophils # 0.2 10^3/uL (0.0-0.8); Eosinophils % 4.3 %; Hematocrit 30.6 % (37.0-47.0); Hemoglobin 9.3 g/dL (11.5-15.3); Lymphocytes # 1.2 10^3/uL (0.8-4.8); Lymphocytes % 26.4 %; Mean Corpuscular HGB Conc 30.4 g/dL (30.0-36.0); Mean Corpuscular Hemoglobin 35.1 pg (28.0-34.0); Mean Corpuscular Volume 115.5 fL (81-99); Mean Platelet Volume 11.6 fL (7.4-10.4); Monocytes # 0.7 10^3/uL (0.2-0.9); Monocytes % 15.7 %; Neutrophils % 52.4 %; Nucleated Red Blood Cells % 0 %; Platelet Count 106 10^3/cmm (130-400); Red Blood Count 2.65 10^6/uL (4.1-5.3); Red Cell Distribution Width 17.3 % (12.1-15.1); White Blood Count 4.4 10^3/uL (4.0-10.0)
[2019-08-28 15:05] LABS: Alanine Aminotransferase 40 U/L (0-33); Albumin Level 4.2 g/dL (3.5-5.2); Alkaline Phosphatase 163 IU/L (35-105); Anion Gap 17.5 (5-19); Aspartate Amino Transferase 56 U/L (0-32); Blood Urea Nitrogen 12 mg/dL (8-23); Calcium 9.7 mg/dL (8.5-10.5); Carbon Dioxide 25 mmol/L (22-29); Chloride 101 mmol/L (98-107); Globulin 3.2 g/dL (1.3-4.6); Glomerular Filtration Rate 101.3 mL/min (90-130); Glucose 86 mg/dL (65-115); Osmolality Calculated 285 mOsm/kg (285-295); Potassium 3.5 mmol/L (3.5-5.1); Sodium 140 mmol/L (136-145); Thyroid Stimulating Hormone 3.28 uIU/mL (0.27-4.20); Total Bilirubin 0.5 mg/dL (0.15-1.2); Total Protein 7.4 g/dL (6.6-8.7)
[2019-08-31] MEDS: acetaminophen 325 mg Tablet 650 MG PO (09:45)
[2019-08-31] MEDS: sodium chloride 0.9% 250 ML 75 ML IV (09:55)
[2019-08-31] MEDS: diphenhydrAMINE 25 mg Capsule PO (09:55)
[2019-08-31 11:30] LABS: Folate Level > 20.0 ng/mL (4.8-37.3)
[2019-08-31] MEDS: denosumab 120 mg SDV SUBCUT (12:45)
--- NOTE | 2019-09-05 14:17 | ONC FU_ITS ---
Kerri Wolfe Patient Note Patient: Soledad Santamaria Unit #: [id number]: 1955 Dictated By: Liliana BernsteinDate of Visit: Aug 31, 2019 Onc MED Follow-Up/Prog Note Chief Complaint: Metastatic breast cancer History of Present Illness: Mrs. Santamaria is a 63-year-old female with history of left breast carcinoma with bone metastasis. She presented with an abnormal mammogram in 2010. She had apparently had detected an left-sided breast mass in late 2009. She was referred to Dr Gadiel Reed @ [facility] in [place], [place]. In April 2010, she underwent needle core biopsy of the left breast that did confirm invasive ductal carcinoma histological grade 2/3, ER+ AL+ and Her 2 Oneida immunostain was 3+. She also had biopsy of a left axillary lymph node that was positive for invasive carcinoma with no lymphoid tissue identified. Her exam prior to chemo revealed a 3 cm mass in the extreme upper outer aspect of the left breast and multiple palpable enlarged lymph nodes-the largest was 2 cm and mobile.. Further workup included a breast MRI which did show biopsy proven malignancy in the left upper outer quadrant measuring 3.3 cm with associated axillary and subpectoral adenopathy. She had multiple satellite nodes with the largest measuring 7 cm. She did undergo MRI guided biopsy on June 08, 2010, which did report invasive cancer. She did have CT of the chest and a bone scan which did not show distant disease,. However, there was an enlarged lymph node in the subcutaneous tissues posterior to the left scapula and was biopsied on May 26, 2010 and was negative for malignancy. She under went neoadjuvant chemotherapy with weekly paclitaxel and Herceptin for 12 cycles from May 2010 to August of 2010 followed by FEC and Herceptin through October 2010. She completed 1 year of Herceptin in May 2011 during which time she was also taking an AI. She did have febrile neutropenia requiring admission in September 2010. She underwent bilateral mastectomies( for abnormal mammogram findings in the right breast) at [facility] in [facility] in November 2010. She did have post mastectomy radiation completed on 03/21/2011. She then underwent reconstruction with bilateral breast implants. Unfortunately in November 2011, the left implant became infected and had to be removed. During work up of the implant abnormality she has found to have a metastatic lesion in her left scapula. She did not have any problems until November of 2012 at which time she was having generalized bone pain, which she thought was a combination of Actonel and Anastrozole. The pain did not improve with stopping these medications. She was transitioned to single agent Tamoxifen. A bone scan revealed increased activity along the lateral margin of the left scapula suspicious of osseous metastatic disease when compared to the bone scan from November 2011. This lesion was biopsied on 12/01/2012 and revealed metastatic disease consistent with the breast primary. She did not have radiation at that time as she was not having significant pain. Mrs Santamaria was restaged and found to have diffuse pulmonary nodules and mediastinal lymphadenopathy and in November 2012, she was enrolled in a clinical trial with Herceptin. Perjeta and Letrozole. She had restaging in March 2014 that revealed slight progression of her pulmonary nodules which did not meet criteria for end point results of the clinical trial and was taken off the trial. Her bone scan was reported as stable. She transferred her care to [facility] in [place], [place] to the care of Dr Mehran Jacobson III in May 2014 due to the difficulty traveling to [facility]. The treatment of letrozole, Herceptin and Perjeta was continued until she disease progression and was changed to Kadcyla in February 2015 after restaging imaging revealed disease progression.And she could not tolerate and it was discontinued after 2 or 3 doses. INTERIM HISTORY: Mrs Santamaria was referred to us in October 2016 for followup at which time, Mrs Santamaria was having right upper back pain, left chest wall pain and right groin pain. She did have restaging with PET/CT on 11/03/2016. The PET/CT revealed multiple FGD avid osteolytic metastases in the left scapula, posterior left 9th rib, T10, T12 and the anterior right acetabulum. Multiple FDG avid metastatic pulmonary nodules represented by 1.9 cm nodule in the posterbasal segment of the right lower lobe with an SUV of 5 and a 1.7 cm nodule in the anterrobasal segment of the left lower lobe with an SUV of 5.1. No hepatic or adrenal metastases identified. Mrs Santamaria was referred [place] [facility] [place] and underwent radiation to the right hip, left scapula, T10-T12 spine. Her pain resolved with the radiation, offered her palliative chemotherapy with Navelbine and Herceptin. She had agreed to a trial of the chemotherapy. Follow-up CT PET scan showed disease progression chemotherapy was discontinued and she was referred to radiation oncology for palliative radiation therapy. After this cycle of radiation therapy, she was started on lapatinib and Xeloda. She was tolerating it well but she was referred to radiation for C-spine metastases management. At that time her chemotherapy was put on hold. She developed right hip pain for which she received palliative radiation therapy to the 06/25/2017. The lapatinib and Xeloda was restarted but her follow-up tumor markers showed evidence of disease progression as the CA-27-29 gone up to 1346.70 on 08/20/2017 compared to 896.45 on 07/04/2017. Her chemotherapy with Xeloda and lapatinib was discontinued and decided to switch her to weekly Herceptin and Taxane , patient doesn't want take steroids so we recommended Herceptin and Abraxane combination. She did develop nausea vomiting abdominal pain with her last dose of Zometa and doesn't want to take Zometa anymore. We will switch her to Xgeva. There was delay in getting started with the Herceptin/Abraxane. She apparently had positive TB test which required workup and eventually was found to be a false positive. She began her first cycle of Herceptin and Abraxane on 10/09/2017.Last dose of Abraxane/Herceptin was given on 12/17/2017 and because of intolerance Abraxane was discontinued and last dose of Herceptin was given on 12/31/2017 Mrs Santamaria was seen by Dr. Ramirez, oncologist at [facility], for clinical trial and many clinical trials available but due to transportation and financial reasons, patient could not consider any of them. Palliative chemotherapy with carboplatin/gemcitabine/Herceptin or eribulin /Herceptin was recommended. Patient had bone scan and CT scan of chest abdomen done at [facility] which showed widespread metastatic disease. She began chemotherapy with weekly carboplatin, gemcitabine and trastuzumab on 04/15/2018 Follow-up CT PET scan done on 07/05/2018 showed improvement in hepatic metastatic disease since April 2017 study Mixed response to multiple bilateral pulmonary lesion Reactive marrow with splenic activity Osseous metastatic disease seen on April 2017 study is sclerotic and FDG negative Mrs Santamaria was admitted to hospital with abdominal pain and diagnosed with diverticulitis treated successfully with antibiotics and during this time, CT scans of chest abdomen pelvis were done on 07/30/2018 . The scans showed extensive pulmonary metastases and hepatic metastases and bone metastases, stable when compared with CT PET scan done in June 2018. She continued with treatment with carboplatin/gemcitabine/Herceptin. Follow-up CT PET scan done on 10/25/2018 showed mild improvement in hepatic, pulmonary and osseous metastatic disease. She has continued with chemotherapy with weekly Carboplatin, gemcitabine and Herceptin. She is receiving Neupogen support on and Saturday after her treatment on Saturday. She was getting the Neupogen at [place], [place]. She tolerated this plan well. She continues to have exertional shortness of breath but states it is no worse than what is has been but it is no better either. She denies any angina type pain but thinks she may have palpatations once in a while with the shortness of breath. She denies orthopnea. She denies any cough. She does have a very strong family history of CAD-both parents with her father's first VT in his 30's and both brothers have CAD. She has never had a diagnosis of CAD. She did have an echocardiogram on 11/07/2018 that reported EF of 60%-unchanged from previous echo. She reported she had a bug bite on her right breast reconstruction site around where the nipple should be. She states it presented as a big blister then it popped and then formed a scabbed area but no drainage. She had been applying triple antibotic ointment to it. She was referred to plastic surgery at [facility] and ulimately underwent right breast implant removal in December 2018, as per patient and there was no evidence of breast cancer in the specimen. Her chemotherapy was delayed because of dental procedure from 12/30/2018 to 02/04/2019. She resumed treatment on 02/04/2019. Echocardiogram done on 03/09/2019 showed Ejection fraction was 68%. Mrs Santamaria has now completed 11 cycles of Carboplatin/gemcitabine/Herceptin. She has continued denosumab as well. Mrs Santamaria underwent restaging PET/Ct on 04/21/2019. The PET/CT apparently was not compared to the scan she had on 10/25/2018. A review/comparison and an addended report has been requested. However in the interim we discussed the findings of her April 21, 2019 PET in relation to the October 25, 2018 PET. There were multiple pulmonary nodules present with the largest at the right base posteromedially measuring 4.9 x 2 point centimeters with a maximum SUV of 6.71. The results of that SUV on the October 25, 2018 report is somewhat blurry but looks to be 8.4 possibly 6.4 but indicates that the pulmonary nodules are relatively stable. The maximum SUV in the liver was 3.31 and on the October 2018 scan was 5.1. did compare the reports and felt that Soledad had had some improvement in her overall disease. We of course are waiting for the final review and updated report. These findings have been discussed with Mrs Santamaria she understands that it will be compared with the one in October. She has had persistent right arm numbness and has an appointment with Dr Matthew soto for followup on that. She now has noticed right leg numbness. It comes and goes but seems to be lasting longer when it does come. She has had no TIA symptoms. MRI scan of the head done on 05/07/2019 showed no evidence of brain metastases. Due to hyperintense enhancing 9 x 6 mm intrapituitary lesion in the left aspect of pitiutary. Normal optic chasm. Slight [id number]-[id number] mass effect on the infundibulum. Consistent with a pituitary adenoma. 10 mm metastatic C2 vertebral body lesions likely previously treated. She has continued with carboplatin, gemcitabine and Herceptin. She is also getting monthly Xgeva. Mrs Santamaria is here today for follow-up. She states overall she feels about the same as always. She continues to have little neuropathy in her right arm and right leg but states that is unchanged. She thinks she has had some left leg weakness but states that it is nothing really new for her. She mentions that she has having some windedness with walking. She denies any lower extremity edema. She denies any cough. She denies any orthopnea at this time. She also mentions that she is having some racing heart rate with activity. She states she cannot tell if the rhythm is regular or not. She states she does notice she is little bit more winded when she is having the racing though. She denies any chest pain. She denies any other palpitations. She is had no syncopal or near syncopal episodes. She states that her main concern for the day has been that she has had some right mid quadrant pain. She states is been there for about a week and the discomfort comes and goes. She states she cannot figure out any trigger for it. She states that it just a deep cramp. She thinks it possibly could be a gas bubble. She states it will go away on its own but then returns on its own for no rhyme or reason she denies any changes in her bowel habits. She states she has had some chronic constipation in the discomfort does seem to be worse with the constipation. She states she does notice that once her bowels move the pain is better. She states she is eating good. Her activity level is normal for her although she states she just has no stamina and wears out easily. She denies any fever or chills. She denies any nausea or vomiting. Her ECOG is 1. Past Medical History: Cancer (breast (left)) in 2008 Past Surgical History: Cholecystectomy Colonoscopy Hysterectomy Nisson wrap Right breast implant removed Tonsillectomy Flu vaccine in 2019 - Given in right deltoid/lc Flucevax in 2018 - right deltoid Portacatheter in 2017 Mastectomy in 2008 - bilateral October of 2015. She had an unknown rupture and repair Allergies: Codeine Sulfate Medications: Claritin 1 Tablet (of 10 mg) Oral daily Magnesium 1 Tablet Oral daily PRN Multivitamin Adults 1 Tablet Oral daily PRN Potassium 1 Tablet (of 99 mg) Oral daily PRN Prevacid 1 Capsule (of 30 mg) Capsule Delayed Release Oral daily Vitamin C 1 Tablet Oral daily PRN Family History: Ms. Santamaria's mother at age 89: heart attack. Ms. Santamaria's father is alive. Social History: Ms. Santamaria is and she is a disabled. Ms. Santamaria quit smoking 13 years ago but had smoked 1.0 pack/day for 33 years. She has no history of drinking. Ms. Santamaria reports the following support systems: lives with spouse, significant other, family, or friends, lives in own house, supportive family/friends willing to assist with needs, and adequate transportation available for expected visits. Her diet consists of regular meals. She indicates her activity level as: daily activities. Review Of Symptoms: Constitutional Denies fevers, chills, night sweats, or weight loss. States she feels pretty good overall but I just have no stamina . She states she still gets all of her torso but it takes her longer than her normal. Allergic/Immunologic No reactions. Eyes Denies significant visual changes. No diplopia. No amaurosis. ENMT Denies changes in hearing, sore throat, mouth sores, difficulty or changes in swallowing ability, and/or sinus drainage. Endocrine No diabetes, thyroid disease or hormone replacement. Denies hot flashes or night sweats. Hematologic/Lymphatic Denies easy bruising or bleeding. The patient denies any tender or palpable lymph nodes. Breasts No concerns Respiratory dyspnea on exertion-short of breath-stable. Denies chest pain, cough or hemoptysis. Denies orthopnea. Cardiovascular Denies anginal chest pain, palpitations or orthopnea. Gastrointestinal Denies current nausea, vomiting, diarrhea, GI bleeding. She has intermittent constipation but has a regimen that works for her. Genitourinary (F) No hematuria, hesitancy, incontinence, vaginal bleeding, discharge or other problems with urination. Musculoskeletal Denies joint pain, swelling or redness. No decreased range of motion. Integumentary Denies chronic rashes, inflammation, ulcerations or skin changes. Neurologic Denies headache, blurred vision, and no areas of focal weakness or numbness. Normal gait. No sensory problems. Psychiatric Denies insomnia, depression, estelita or mood swings. Vital Signs: Performed on Aug 31, 2019 08:54 Height - 67.00 in Weight - 156.6 lbs (HIGH) BSA - 1.82 sq.m BMI - 24.53 Temperature - 98.0 F (LOW) Pulse - 88 /min Respiration - 16 /min BP - 134/84 mm(hg) O2 Sat - 95 % (LOW) Pain - 0,1 - No physically strenuous activity, but ambulatory and able to carry out light or sedentary work (e.g. office work, light house work). (ECOG) Physical Examination: Constitutional Alert, oriented, no acute distress. Skin pink, warm and dry. Head Normocephalic; atraumatic. Eyes Conjunctivae and sclerae are clear and without icterus. Pupils are reactive and equal. ENMT No mouth sores or yeast. Neck Supple without masses or thyromegaly. No jugular venous distension. Hematologic/Lymphatic No petechiae or purpura. Respiratory Lungs are diminished bilaterally to auscultation without rhonchi or wheezing. Cardiovascular Regular rate and rhythm of heart without murmurs,clicks, gallops or rubs. Back/Spine Non-tender to palpation. Extremities No visible deformities, no cyanosis, clubbing or edema. Musculoskeletal No tenderness or swelling, normal range of motion without obvious weakness. Integumentary No rashes or lesions. Neurologic No sensory or motor deficits, normal cerebellar function, normal gait. Psychiatric Alert and oriented times three. Coherent speech. Verbalizes understanding of our discussions today. Laboratory:Test performed on Aug 17, 2019 09:40 TSH 2.90 uIU/mL Test performed on Aug 12, 2019 08:44 Glucose 71 mg/dL BUN 12 mg/dL Creatinine 0.8 mg/dL Cr Clearance (Est) 79.57 mL/min Sodium 143 mmol/L Potassium 3.6 mmol/L Chloride 104 mmol/L CO2 25 mmol/L Calcium 9.5 mg/dL Protein, Total 7.2 g/dL Albumin 4.4 g/dL Globulin 2.8 g/dL Bilirubin, Total 0.4 mg/dL Alkaline Phosphatase 173 IU/L AST (SGOT) 53 IU/L ALT (SGPT) 40 IU/L WBC 3.9 10^9/L RBC 2.68 10^12/L HGB 9.6 g/dL HCT 31.4 % MCV 117.2 fl MCH 35.8 pg MCHC 30.6 g/dL RDW 17.2 % Platelet Count 130 10^9/L MPV 11.4 fL Neutrophils (Gran) 1.5 10^9/L Lymphocytes 1.4 10^9/L Monocytes 0.9 10^9/L Eosinophils 0.1 10^9/L Basophils 0.0 10^9/L Manual Lymphocytes 34.4 % Manual Monocytes 22.7 % Manual Eosinophils 3.3 % Manual Basophils 0.5 % Test performed on Jul 31, 2019 08:00 Magnesium 2.1 mg/dL Anion Gap 16.9 eGFR 84.8 mL/min Neutrophil % 40.5 % Lymphocyte % 34.7 % Monocyte % 19.0 % Eosinophil % 4.8 % Basophils % 0.5 % NRBC % 0 % Test performed on July 17, 2019 10:00 Ferritin 524 ng/mL Iron 94 mcg/dL Vitamin B12 853 pg/mL Iron Binding Capacity (TIBC) 316 mcg/dl % Iron Saturation 29.7 % UIBC 222 mcg/dL Impression: History of left breast cancer with metastases to left scapula status post bilateral mastectomy and left axillary lymph node dissection followed by radiation therapy to left chest wall and axilla in 2008 in [facility] in [facility] status post 1 year of Herceptin and paclitaxel and Arimidex for some time status post radiation therapy to left scapula biopsy-proven metastases Medical record obtained from [facility] [place], [place] and ER/AL positive HER-2/oneida overexpression positive it shows #1 presentation with abnormal screening mammogram in 2010. Patient underwent neoadjuvant chemotherapy with weekly paclitaxel and Herceptin for 12 cycle from May Treated with neoadjuvant chemotherapy FEC plus Herceptin from August 2010 through October 2010 In November 2010 she undergoes bilateral simple mastectomy with pathology demonstrating pT2 N2 disease Mrs Santamaria completed 1 year of adjuvant Herceptin therapy with adjuvant aromatase inhibitor In October 2011 patient transitioned to single agent tamoxifen due to poor tolerance of aromatase inhibitor therapy In October 2012 patient presented with left scapular pain imaging demonstrates abnormal bones lesion with biopsy notable for ER/AL positive HER-2/oneida overexpressing breast cancer, staging evaluation demonstrated bilateral pulmonary nodules with mediastinal lymphadenopathy On 12/16/2012 patient initiates letrozole plus Herceptin plus PERJETA on clinical trial On 02/22/2015 patient demonstrates subjective progression of disease within lungs On 02/25/2015 initiated on KADCYLA History of metastatic disease status post chemotherapy with different agents on multiple occasions most recent hormonal agent was letrozole 2.5 mg Elevated tumor markers [place] [address] scan of chest abdomen pelvis done on 10/10/2016 showed multiple bilateral pulmonary nodules consistent with metastatic disease multiple lytic lesion including posterior aspect of T12 vertebral body related dissection of much of right side of T10 vertebra and a large lytic lesion involving the roof of the right acetabulum and right iliac wing and focus of due to dissection lesion in right ischium Stable tiny low-attenuation abnormalities within the liver most likely consistent with multiple tiny cysts Pulmonary emphysema 8 ON 09/24/2016 CA 15.3 342.6 CA 27- 29 493.59 Upper mid back pain and right hip pain due to bone metastases questionable cord compression. She did have restaging with PET/CT on 11/03/2016. The PET/CT revealed multiple FGD avid osteolytic metastases in the left scapula, posterior left 9th rib, T10, T12 and the anterior right acetabulum. Multiple FDG avid metastatic pulmonary nodules represented by 1.9 cm nodule in the posterbasal segment of the right lower lobe with an SUV of 5 and a 1.7 cm nodule in the anterrobasal segment of the left lower lobe with an SUV of 5.1. No hepatic or adrenal metastases identified. Mrs Santamaria was referred [place] [facility] [place] and underwent radiation to the right hip, left scapula, T10-T12 spine. Her pain resolved with the radiation. offered her palliative chemotherapy with Navelbine and Herceptin. She has agreed to a trial of the chemotherapy. CT scan of the chest August 2017 reported disease progression in the chest and evidence of possible hepatic involvement as well as possible metastatic site involving the left 12th rib. PET/CT scan done on 03/02/2017 showed multiple FDG avid metastatic pulmonary nodules represented by 1.9 cm nodule in the posterior basal segment of right lower lobe with SUV 9.6 compared to 5 on prior exam and a 1.7 cm nodule in the anterior basal segment of left lower lobe with SUV of 4.9 compared to 4.1 on prior exam. There were multiple new hepatic metastatic lesions represented by 1.7 cm nodule with SUV of 5.4 in the anterior superior segment right upper lobe. The PET/CT also reported bone metastasis the left anterior superior iliac spine posteriorly right sacroiliac and T10 T12 right acetabulum, left scapula and posterior left eighth rib. MRI scan of C-spine done on 02/28/2017 showed metastatic lesion of C2 vertebral body. Additional foci of metastatic disease may involve C6 and T1 vertebral bodies multiple disc bulging and spondylosis at C5/C6 and C6/C7 with mild anterior impingement Episode of rectal bleed/abdominal pain probably due to diverticulitis/diverticular bleed CT scan of chest abdomen pelvis done on 03/31/2017 showed pulmonary metastatic disease with variable size of some of the lesion since 10/30/2016 some lesions are smaller and other are larger hepatic and bone metastatic disease similar to the prior exam CT PET scan done on 04/27/2017 showed osseous lesion in left half of C1, and right T1 transverse process and left T1 pedicle, the L1 vertebral body, and L2 vertebral body shows no changes. However, pelvic metastatic disease has worsened with SUV 8.2 compared to 4.1 previously but she is status post radiation therapy to her pelvic bones., Multifocal hepatic metastatic disease is progressed , with SUV 9.8 compared to 5.4 earlier, bilateral hypermetabolic pulmonary nodules are unchanged and right hilar malignant node demonstrated progression Started on lapatinib and Xeloda on 06/08/2017 then it was placed on hold due to radiation therapy to left hip pain. Left posterior hip pain due to bone metastases status post radiation to right hip. Status post radiation therapy to C-spine could complete 9 out of 12 recommended doses because of severe radiation-induced pharyngitis , finished on 06/25/2017 Status palliative post radiation to hip, finished on 06/26/2007 Tumor marker CA-27-29 gone up to 1346.70 on 08/20/2017 from 896.45 on 07/04/2017 Lapatinib and Xeloda discontinued on 08/26/2017 and her treatment plan changed to weekly Herceptin and Taxane 3 weeks on and 1 week off with followup PET/CT after the third cycle. She had GI issues with Zometa ( an episode of nausea vomiting and abdominal pain) so she refuses to repeat the Zometa. She will be offered Xgeva 120 mg every month instead of the Zometa. She began her first cycle of Abraxane and Herceptin on 10/09/2017.Till 12/17/2017 at that time Abraxane was discontinued because of intolerance and last dose of Herceptin was given on 12/31/2017 and because of progressive weakness and fatigue this was also discontinued Patient was referred to [facility] she was seen by Dr. Ramirez on 03/31/2018, many clinical trials are available but due to transportation and financial reason patient could not consider any of them. So palliative chemotherapy with erbulin /Herceptin or carboplatin/gemcitabine/Herceptin was recommended. She did discontinue letrozole on 04/07/2018 and it was recommended that she start on weekly carboplatin AUC 2/gemcitabine 1000 mg/m2/Herceptin day 1, 8 and 15 every 28 days. Along with monthly Xgeva. She began her first cycle on 04/15/2018 .Follow-up CT PET scan done on 07/05/2018 showed hepatic metastatic disease has improved when compared with CT PET scan done in April 2017 and index lesion in the right hepatic dome has now significant central necrosis. There was a mixed response to multiple lung nodules, a left upper lobe nodules is unchanged in size at 1.6 cm but has SUV 3.8 compared to 5.6 before similar improvement is present in the posterior right lower lobe nodule and left lung base nodules. However there are new lesions in the right middle and medial right lobes, the 2 new lesions in the medial right lobe have SUV of 289 and right middle lobe measures 2.6 cm with SUV of 6.8. Multiple osseous lesion seen previously were sclerotic and FDG negative. Suspicious uptake is identified in left femoral neck and proximal right femur and L2. Mrs Santamaria continues with Carboplatin, gemcitabine and Herceptin and monthly Xgeva. She does require intermittent support with growth factors to keep her blood counts up in order to stay on the treatment plan. Follow-up CT PET scan done on 10/25/2018 showed multiple hepatic lesions are seen on prior studies on 07/05/2018 or minimally improved in size and now with improved SUV. Mild improvement in bilateral lung nodules both in size and SUV. Mild improvement is noted in multifocal osseous metastatic disease. Follow-up echocardiogram done on 11/07/2018 showed ejection fraction around 60%. She continued with weekly Carboplatin/gemcitabine and Herceptin. She has completed 11 full cycles and had restaging imaging on 04/21/2019. She had a PET/CT at [facility] on 04/21/2019. The PET/CT apparently was not compared to the scan she had on 10/25/2018. A review/comparison and an addended report has been requested. However in the interim we discussed the findings of her April 21, 2019 PET in relation to the October 25, 2018 PET. There were multiple pulmonary nodules present with the largest at the right base posteromedially measuring 4.9 x 2 point centimeters with a maximum SUV of 6.71. The results of that SUV on the October 25, 2018 report is somewhat blurry but looks to be 8.4 possibly 6.4 but indicates that the pulmonary nodules are relatively stable. The maximum SUV in the liver was 3.31 and on the October [address] Pitts did compare the reports and felt that Soledad had had some improvement in her overall disease. She continues with chemotherapy with carboplatin gemcitabine and Herceptin. Thus far there has no been obvious signs of disease progression. Plan: 1. Proceed with cycle 16-day 15 carboplatin, gemcitabine, Herceptin. 2. Continue current antiemetics as these are working well for her. 3. Labs from August 27 were reviewed in detail and discussed with Mrs. Santamaria and a copy was given to her. WBC 4.4, hemoglobin 9.3, platelets 106,000 ANC is 2300. Creatinine 0.6 LFTs reveal an ALT of 40 which is stable AST is 56 which is also stable TSH was 3.28. 4. She will be due for echocardiogram with her next visit for routine limited cardiac monitoring due to Herceptin. She states she is having a little more shortness of breath with walking than what is her normal. She denies any lower extremity edema though. 5. I have asked for a 30-day monitor to evaluate her palpitations. She is having racing heart rate with activity . 6. We will plan to see her back in 2 weeks with CBC CMP. She was instructed to contact us in the interim should questions or problems arise. 7. She is due for denosumab 120 mg today for bone involvement Signed By: Liliana Bernstein-, CNP Kortney Pitts MD <<Signature on File>>
--- NOTE | 2019-09-14 16:09 | ONC FU_ITS ---
Dr. Pitts follow up note Patient: Soledad Santamaria Unit #: [id number]: [id number] Dicatated By: Kortney Pitts M.D.Date of Visit:Sep 14, 2019 Onc Med Follow-up/Prog Note History of Present Illness: Mrs. Santamaria is a 64-year-old female with history of left breast carcinoma with bone metastasis. She presented with an abnormal mammogram in 2010. She had apparently had detected an left-sided breast mass in late 2009. She was referred to Dr Gadiel Reed @ [facility] in [place], [place]. In April 2010, she underwent needle core biopsy of the left breast that did confirm invasive ductal carcinoma histological grade 2/3, ER+ CA+ and Her 2 [place] immunostain was 3+. She also had biopsy of a left axillary lymph node that was positive for invasive carcinoma with no lymphoid tissue identified. Her exam prior to chemo revealed a 3 cm mass in the extreme upper outer aspect of the left breast and multiple palpable enlarged lymph nodes-the largest was 2 cm and mobile.. Further workup included a breast MRI which did show biopsy proven malignancy in the left upper outer quadrant measuring 3.3 cm with associated axillary and subpectoral adenopathy. She had multiple satellite nodes with the largest measuring 7 cm. She did undergo MRI guided biopsy on June 08, 2010, which did report invasive cancer. She did have CT of the chest and a bone scan which did not show distant disease,. However, there was an enlarged lymph node in the subcutaneous tissues posterior to the left scapula and was biopsied on May 26, 2010 and was negative for malignancy. She under went neoadjuvant chemotherapy with weekly paclitaxel and Herceptin for 12 cycles from May 2010 to August of 2010 followed by FEC and Herceptin through October 2010. She completed 1 year of Herceptin in May 2011 during which time she was also taking an AI. She did have febrile neutropenia requiring admission in September 2010. She underwent bilateral mastectomies( for abnormal mammogram findings in the right breast) at [facility] in [facility] in November 2010. She did have post mastectomy radiation completed on 03/21/2011. She then underwent reconstruction with bilateral breast implants. Unfortunately in November 2011, the left implant became infected and had to be removed. During work up of the implant abnormality she has found to have a metastatic lesion in her left scapula. She did not have any problems until November of 2012 at which time she was having generalized bone pain, which she thought was a combination of Actonel and Anastrozole. The pain did not improve with stopping these medications. She was transitioned to single agent Tamoxifen. A bone scan revealed increased activity along the lateral margin of the left scapula suspicious of osseous metastatic disease when compared to the bone scan from November 2011. This lesion was biopsied on 12/01/2012 and revealed metastatic disease consistent with the breast primary. She did not have radiation at that time as she was not having significant pain. Mrs Santamaria was restaged and found to have diffuse pulmonary nodules and mediastinal lymphadenopathy and in November 2012, she was enrolled in a clinical trial with Herceptin. Perjeta and Letrozole. She had restaging in March 2014 that revealed slight progression of her pulmonary nodules which did not meet criteria for end point results of the clinical trial and was taken off the trial. Her bone scan was reported as stable. She transferred her care to [facility] in [place], [place] to the care of Dr Mehran Jacobson III in May 2014 due to the difficulty traveling to [facility]. The treatment of letrozole, Herceptin and Perjeta was continued until she disease progression and was changed to Kadcyla in February 2015 after restaging imaging revealed disease progression.And she could not tolerate and it was discontinued after 2 or 3 doses. INTERIM HISTORY: Mrs Santamaria was referred to us in October 2016 for followup at which time, Mrs Santamaria was having right upper back pain, left chest wall pain and right groin pain. She did have restaging with PET/CT on 11/03/2016. The PET/CT revealed multiple FGD avid osteolytic metastases in the left scapula, posterior left 9th rib, T10, T12 and the anterior right acetabulum. Multiple FDG avid metastatic pulmonary nodules represented by 1.9 cm nodule in the posterbasal segment of the right lower lobe with an SUV of 5 and a 1.7 cm nodule in the anterrobasal segment of the left lower lobe with an SUV of 5.1. No hepatic or adrenal metastases identified. Mrs Santamaria was referred to [facility] radiation oncology and underwent radiation to the right hip, left scapula, T10-T12 spine. Her pain resolved with the radiation, offered her palliative chemotherapy with Navelbine and Herceptin. She had agreed to a trial of the chemotherapy. Follow-up CT PET scan showed disease progression chemotherapy was discontinued and she was referred to radiation oncology for palliative radiation therapy. After this cycle of radiation therapy, she was started on lapatinib and Xeloda. She was tolerating it well but she was referred to radiation for C-spine metastases management. At that time her chemotherapy was put on hold. She developed right hip pain for which she received palliative radiation therapy to the 06/25/2017. The lapatinib and Xeloda was restarted but her follow-up tumor markers showed evidence of disease progression as the CA-27-29 gone up to 1346.70 on 08/20/2017 compared to 896.45 on 07/04/2017. Her chemotherapy with Xeloda and lapatinib was discontinued and decided to switch her to weekly Herceptin and Taxane , patient doesn't want take steroids so we recommended Herceptin and Abraxane combination. She did develop nausea vomiting abdominal pain with her last dose of Zometa and doesn't want to take Zometa anymore. We will switch her to Xgeva. There was delay in getting started with the Herceptin/Abraxane. She apparently had positive TB test which required workup and eventually was found to be a false positive. She began her first cycle of Herceptin and Abraxane on 10/09/2017.Last dose of Abraxane/Herceptin was given on 12/17/2017 and because of intolerance Abraxane was discontinued and last dose of Herceptin was given on 12/31/2017 Mrs Santamaria was seen by Dr. Ramirez, oncologist at [facility], for clinical trial and many clinical trials available but due to transportation and financial reasons, patient could not consider any of them. Palliative chemotherapy with carboplatin/gemcitabine/Herceptin or eribulin /Herceptin was recommended. Patient had bone scan and CT scan of chest abdomen done at [facility] which showed widespread metastatic disease. She began chemotherapy with weekly carboplatin, gemcitabine and trastuzumab on 04/15/2018 Follow-up CT PET scan done on 07/05/2018 showed improvement in hepatic metastatic disease since April 2017 study Mixed response to multiple bilateral pulmonary lesion Reactive marrow with splenic activity Osseous metastatic disease seen on April 2017 study is sclerotic and FDG negative Mrs Santamaria was admitted to hospital with abdominal pain and diagnosed with diverticulitis treated successfully with antibiotics and during this time, CT scans of chest abdomen pelvis were done on 07/30/2018 . The scans showed extensive pulmonary metastases and hepatic metastases and bone metastases, stable when compared with CT PET scan done in June 2018. She continued with treatment with carboplatin/gemcitabine/Herceptin. Follow-up CT PET scan done on 10/25/2018 showed mild improvement in hepatic, pulmonary and osseous metastatic disease. She has continued with chemotherapy with weekly Carboplatin, gemcitabine and Herceptin. She is receiving Neupogen support on and Saturday after her treatment on Saturday. She was getting the Neupogen at [place], [place]. She tolerated this plan well. She continues to have exertional shortness of breath but states it is no worse than what is has been but it is no better either. She denies any angina type pain but thinks she may have palpatations once in a while with the shortness of breath. She denies orthopnea. She denies any cough. She does have a very strong family history of CAD-both parents with her father's first [place] in his 30's and both brothers have CAD. She has never had a diagnosis of CAD. She did have an echocardiogram on 11/07/2018 that reported EF of 60%-unchanged from previous echo. She reported she had a bug bite on her right breast reconstruction site around where the nipple should be. She states it presented as a big blister then it popped and then formed a scabbed area but no drainage. She had been applying triple antibotic ointment to it. She was referred to plastic surgery at [facility] and ulimately underwent right breast implant removal in December 2018, as per patient and there was no evidence of breast cancer in the specimen. Her chemotherapy was delayed because of dental procedure from 12/30/2018 to 02/04/2019. She resumed treatment on 02/04/2019. Echocardiogram done on 03/09/2019 showed Ejection fraction was 68%. Mrs Santamaria has now completed 11 cycles of Carboplatin/gemcitabine/Herceptin. She has continued denosumab as well. Mrs Santamaria underwent restaging PET/Ct on 04/21/2019. The PET/CT apparently was not compared to the scan she had on 10/25/2018. A review/comparison and an addended report has been requested. However in the interim we discussed the findings of her April 21, 2019 PET in relation to the October 25, 2018 PET. There were multiple pulmonary nodules present with the largest at the right base posteromedially measuring 4.9 x 2 point centimeters with a maximum SUV of 6.71. The results of that SUV on the October 25, 2018 report is somewhat blurry but looks to be 8.4 possibly 6.4 but indicates that the pulmonary nodules are relatively stable. The maximum SUV in the liver was 3.31 and on the October 2018 scan was 5.1. did compare the reports and felt that Soledad had had some improvement in her overall disease. We of course are waiting for the final review and updated report. These findings have been discussed with Mrs Santamaria she understands that it will be compared with the one in October. She has had persistent right arm numbness and has an appointment with Dr Matthew soto for followup on that. She now has noticed right leg numbness. It comes and goes but seems to be lasting longer when it does come. She has had no TIA symptoms. MRI scan of the head done on 05/07/2019 showed no evidence of brain metastases. Due to hyperintense enhancing 9 x 6 mm intrapituitary lesion in the left aspect of pitiutary. Normal optic chasm. Slight [id number] mass effect on the infundibulum. Consistent with a pituitary adenoma. 10 mm metastatic C2 vertebral body lesions likely previously treated. She has continued with carboplatin, gemcitabine and Herceptin. She is also getting monthly Xgeva. Came for follow-up, complaining of abdominal cramps and diarrhea with mucus for 1 week, no fever or chills, no jaundice, no melena or hematochezia. No nausea or vomiting. Patient started taking ciprofloxacin, she had 4 pills at home and now requesting prescription for ciprofloxacin as it did help in the past at that time she also took Flagyl. As per patient recently she stopped drinking water from her well, could be gastroenteritis due to that as denies eating out or anybody else sick in the family. Medications: Claritin 1 Tablet (of 10 mg) Oral daily, Magnesium 1 Tablet Oral daily PRN, Multivitamin Adults 1 Tablet Oral daily PRN, Potassium 1 Tablet (of 99 mg) Oral daily PRN, Prevacid 1 Capsule (of 30 mg) Capsule Delayed Release Oral daily, Vitamin C 1 Tablet Oral daily PRN Allergies: Codeine Sulfate Review of Systems: Constitutional - Appetite is fair, weight is stable. Energy level is fair. Positive for chills. No fever, night sweats or hot flashes, ENMT - No sinus congestion/drainage. No mouth sores. No sore throat or difficulty swallowing, Hematologic/Lymphatic - No abnormal bruising or bleeding, Respiratory - Positive for occasional shortness of breath, Cardiovascular - No anginal chest pain, palpitations or orthopnea, Gastrointestinal - No nausea, vomiting, GI bleeding, or constipation. No change in bowel habits, no heartburn or early satiety. Positive for diarrhea, Genitourinary (F) - No hematuria, dysuria, increased frequency, urgency, hesitancy or incontinence, Musculoskeletal - Positive for occasional back pain, Neurologic - No dizziness, Psychiatric - No anxiety or depression. Occasional insomnia. Vital Signs: Performed on Sep 14, 2019 09:17 Height - 67.00 in Weight - 151.6 lbs (LOW) BSA - 1.80 sq.m BMI - 23.74 Temperature - 97.7 F (LOW) Pulse - 85 /min Respiration - 24 /min BP - 146/74 mm(hg) (HIGH) O2 Sat - 95 % (LOW) Pain - 0 Performance Status: 1 - No physically strenuous activity, but ambulatory and able to carry out light or sedentary work (e.g. office work, light house work). (ECOG) Physical Examination: Respiratory - Lungs are clear, Cardiovascular - Regular rate and rhythm of heart, Gastrointestinal - Soft, bowel sounds present nontender, no focal tenderness or rebound tenderness, Extremities - .No visible edema. Lab/Imaging: Test performed on Sep 11, 2019 08:30 Glucose 81 mg/dL BUN 13 mg/dL Creatinine 0.8 mg/dL Cr Clearance (Est) 78.55 mL/min Sodium 139 mmol/L Potassium 4.0 mmol/L Chloride 102 mmol/L CO2 25 mmol/L Calcium 8.4 mg/dL Protein, Total 6.8 g/dL Albumin 4.1 g/dL Globulin 2.7 g/dL Bilirubin, Total 0.4 mg/dL Alkaline Phosphatase 222 IU/L AST (SGOT) 75 IU/L ALT (SGPT) 50 IU/L WBC 5.4 10^9/L RBC 2.52 10^12/L HGB 8.5 g/dL HCT 28.8 % MCV 114.3 fl MCH 33.7 pg MCHC 29.5 g/dL RDW 16.7 % Platelet Count 112 10^9/L MPV 12.0 fL Neutrophils (Gran) 2.32 10^9/L Lymphocytes 1.6 10^9/L Monocytes 1.2 10^9/L Eosinophils 0.2 10^9/L Basophils 0.0 10^9/L Manual Lymphocytes 29.5 % Manual Monocytes 22.0 % Manual Eosinophils 3.5 % Manual Basophils 0.6 % Test performed on Aug 28, 2019 10:55 TSH 3.28 uIU/mL Anion Gap 17.5 eGFR 101.3 mL/min Neutrophil % 52.4 % Lymphocyte % 26.4 % Monocyte % 15.7 % Eosinophil % 4.3 % Basophils % 0.7 % NRBC % 0 % Test performed on Jul 31, 2019 08:00 Magnesium 2.1 mg/dL Test performed on July 17, 2019 10:00 Ferritin 524 ng/mL Iron 94 mcg/dL Vitamin B12 853 pg/mL Iron Binding Capacity (TIBC) 316 mcg/dl % Iron Saturation 29.7 % UIBC 222 mcg/dL Impression: History of left breast cancer with metastases to left scapula status post bilateral mastectomy and left axillary lymph node dissection followed by radiation therapy to left chest wall and axilla in 2008 in [facility] in [facility] status post 1 year of Herceptin and paclitaxel and Arimidex for some time status post radiation therapy to left scapula biopsy-proven metastases Medical record obtained from [facility] [place] and ER/CA positive HER-2/oneida overexpression positive it shows #1 presentation with abnormal screening mammogram in 2010. Patient underwent neoadjuvant chemotherapy with weekly paclitaxel and Herceptin for 12 cycle from May Treated with neoadjuvant chemotherapy FEC plus Herceptin from August 2010 through October 2010 In November 2010 she undergoes bilateral simple mastectomy with pathology demonstrating pT2 N2 disease Mrs Santamaria completed 1 year of adjuvant Herceptin therapy with adjuvant aromatase inhibitor In October 2011 patient transitioned to single agent tamoxifen due to poor tolerance of aromatase inhibitor therapy In October 2012 patient presented with left scapular pain imaging demonstrates abnormal bones lesion with biopsy notable for ER/CA positive HER-2/oneida overexpressing breast cancer, staging evaluation demonstrated bilateral pulmonary nodules with mediastinal lymphadenopathy On 12/16/2012 patient initiates letrozole plus Herceptin plus PERJETA on clinical trial On 02/22/2015 patient demonstrates subjective progression of disease within lungs On 02/25/2015 initiated on KADCYLA History of metastatic disease status post chemotherapy with different agents on multiple occasions most recent hormonal agent was letrozole 2.5 mg Elevated tumor markers [place] [address] scan of chest abdomen pelvis done on 10/10/2016 showed multiple bilateral pulmonary nodules consistent with metastatic disease multiple lytic lesion including posterior aspect of T12 vertebral body related dissection of much of right side of T10 vertebra and a large lytic lesion involving the roof of the right acetabulum and right iliac wing and focus of due to dissection lesion in right ischium Stable tiny low-attenuation abnormalities within the liver most likely consistent with multiple tiny cysts Pulmonary emphysema 8 ON 09/24/2016 CA 15.3 342.6 CA 27- 29 493.59 Upper mid back pain and right hip pain due to bone metastases questionable cord compression. She did have restaging with PET/CT on 11/03/2016. The PET/CT revealed multiple FGD avid osteolytic metastases in the left scapula, posterior left 9th rib, T10, T12 and the anterior right acetabulum. Multiple FDG avid metastatic pulmonary nodules represented by 1.9 cm nodule in the posterbasal segment of the right lower lobe with an SUV of 5 and a 1.7 cm nodule in the anterrobasal segment of the left lower lobe with an SUV of 5.1. No hepatic or adrenal metastases identified. Mrs Santamaria was referred to [facility] radiation oncology and underwent radiation to the right hip, left scapula, T10-T12 spine. Her pain resolved with the radiation. offered her palliative chemotherapy with Navelbine and Herceptin. She has agreed to a trial of the chemotherapy. CT scan of the chest August 2017 reported disease progression in the chest and evidence of possible hepatic involvement as well as possible metastatic site involving the left 12th rib. PET/CT scan done on 03/02/2017 showed multiple FDG avid metastatic pulmonary nodules represented by 1.9 cm nodule in the posterior basal segment of right lower lobe with SUV 9.6 compared to 5 on prior exam and a 1.7 cm nodule in the anterior basal segment of left lower lobe with SUV of 4.9 compared to 4.1 on prior exam. There were multiple new hepatic metastatic lesions represented by 1.7 cm nodule with SUV of 5.4 in the anterior superior segment right upper lobe. The PET/CT also reported bone metastasis the left anterior superior iliac spine posteriorly right sacroiliac and T10 T12 right acetabulum, left scapula and posterior left eighth rib. MRI scan of C-spine done on 02/28/2017 showed metastatic lesion of C2 vertebral body. Additional foci of metastatic disease may involve C6 and T1 vertebral bodies multiple disc bulging and spondylosis at C5/C6 and C6/C7 with mild anterior impingement Episode of rectal bleed/abdominal pain probably due to diverticulitis/diverticular bleed CT scan of chest abdomen pelvis done on 03/31/2017 showed pulmonary metastatic disease with variable size of some of the lesion since 10/30/2016 some lesions are smaller and other are larger hepatic and bone metastatic disease similar to the prior exam CT PET scan done on 04/27/2017 showed osseous lesion in left half of C1, and right T1 transverse process and left T1 pedicle, the L1 vertebral body, and L2 vertebral body shows no changes. However, pelvic metastatic disease has worsened with SUV 8.2 compared to 4.1 previously but she is status post radiation therapy to her pelvic bones., Multifocal hepatic metastatic disease is progressed , with SUV 9.8 compared to 5.4 earlier, bilateral hypermetabolic pulmonary nodules are unchanged and right hilar malignant node demonstrated progression Started on lapatinib and Xeloda on 06/08/2017 then it was placed on hold due to radiation therapy to left hip pain. Left posterior hip pain due to bone metastases status post radiation to right hip. Status post radiation therapy to C-spine could complete 9 out of 12 recommended doses because of severe radiation-induced pharyngitis , finished on 06/25/2017 Status palliative post radiation to hip, finished on 06/26/2007 Tumor marker CA-27-29 gone up to 1346.70 on 08/20/2017 from 896.45 on 07/04/2017 Lapatinib and Xeloda discontinued on 08/26/2017 and her treatment plan changed to weekly Herceptin and Taxane 3 weeks on and 1 week off with followup PET/CT after the third cycle. She had GI issues with Zometa ( an episode of nausea vomiting and abdominal pain) so she refuses to repeat the Zometa. She will be offered Xgeva 120 mg every month instead of the Zometa. She began her first cycle of Abraxane and Herceptin on 10/09/2017.Till 12/17/2017 at that time Abraxane was discontinued because of intolerance and last dose of Herceptin was given on 12/31/2017 and because of progressive weakness and fatigue this was also discontinued Patient was referred to [facility] she was seen by Dr. Ramirez on 03/31/2018, many clinical trials are available but due to transportation and financial reason patient could not consider any of them. So palliative chemotherapy with erbulin /Herceptin or carboplatin/gemcitabine/Herceptin was recommended. She did discontinue letrozole on 04/07/2018 and it was recommended that she start on weekly carboplatin AUC 2/gemcitabine 1000 mg/m2/Herceptin day 1, 8 and 15 every 28 days. Along with monthly Xgeva. She began her first cycle on 04/15/2018 .Follow-up CT PET scan done on 07/05/2018 showed hepatic metastatic disease has improved when compared with CT PET scan done in April 2017 and index lesion in the right hepatic dome has now significant central necrosis. There was a mixed response to multiple lung nodules, a left upper lobe nodules is unchanged in size at 1.6 cm but has SUV 3.8 compared to 5.6 before similar improvement is present in the posterior right lower lobe nodule and left lung base nodules. However there are new lesions in the right middle and medial right lobes, the 2 new lesions in the medial right lobe have SUV of 289 and right middle lobe measures 2.6 cm with SUV of 6.8. Multiple osseous lesion seen previously were sclerotic and FDG negative. Suspicious uptake is identified in left femoral neck and proximal right femur and L2. Mrs Santamaria continues with Carboplatin, gemcitabine and Herceptin and monthly Xgeva. She does require intermittent support with growth factors to keep her blood counts up in order to stay on the treatment plan. Follow-up CT PET scan done on 10/25/2018 showed multiple hepatic lesions are seen on prior studies on 07/05/2018 or minimally improved in size and now with improved SUV. Mild improvement in bilateral lung nodules both in size and SUV. Mild improvement is noted in multifocal osseous metastatic disease. Follow-up echocardiogram done on 11/07/2018 showed ejection fraction around 60%. She continued with weekly Carboplatin/gemcitabine and Herceptin. She has completed 11 full cycles and had restaging imaging on 04/21/2019. She had a PET/CT at [facility] on 04/21/2019. The PET/CT apparently was not compared to the scan she had on 10/25/2018. A review/comparison and an addended report has been requested. However in the interim we discussed the findings of her April 21, 2019 PET in relation to the October 25, 2018 PET. There were multiple pulmonary nodules present with the largest at the right base posteromedially measuring 4.9 x 2 point centimeters with a maximum SUV of 6.71. The results of that SUV on the October 25, 2018 report is somewhat blurry but looks to be 8.4 possibly 6.4 but indicates that the pulmonary nodules are relatively stable. The maximum SUV in the liver was 3.31 and on the October [address] Pitts did compare the reports and felt that Soledad had had some improvement in her overall disease. She continues with chemotherapy with carboplatin gemcitabine and Herceptin. Thus far there has no been obvious signs of disease progression. Plan: Discussed with patient regarding her labs white blood count 5.4 hemoglobin 8.5 hematocrit 28.8 platelets 112,000 CMP within normal limit except AST 50, ALT 75 compared to 40/56 on August 28, 2019 alk phos 222 and bilirubin 0.4 Clinically, patient doing reasonably well now and mild to moderate distress due to abdominal cramps and diarrhea with mucus could be due to contaminated well water or food poisoning, we will give her prescription for Cipro/Flagyl for 1 week and hopefully with that her symptoms will resolve if not then will consider stool studies and GI evaluation. Patient was advised in case there is a worsening of symptoms then she need to go to hospital for evaluation. We will hold her chemotherapy today and then she will return to clinic in 1 week with CBC CMP. As far as abnormal transaminases concerned etiology unclear could be due to gemcitabine or gastroenteritis or disease progression, will follow the labs if there is no improvement, will consider CT PET scan to assess disease status. Patient is scheduled for echocardiogram and also starting cardiac monitoring for 1 month for off and on palpitation which could be due to anemia and as patient is on Herceptin, cardiac etiology cannot be ruled out. Signed By: Kortney Pitts M.D. <<Signature on File>>
== END 2019-09-18 23:59 | disposition home or self-care (01) ==
LOC: ONCMED 06:43
PROVIDERS: Nurse Practitioner; PCP Nurse Practitioner Family; Visit Provider Internal Medicine Hematology & Oncology
DX: Z51.12 Encounter for antineoplastic immunotherapy (principal); C79.51 Secondary malignant neoplasm of bone; C78.7 Secondary malignant neoplasm of liver and intrahepatic bile duct; C78.01 Secondary malignant neoplasm of right lung; C78.02 Secondary malignant neoplasm of left lung; C77.3 Secondary and unspecified malignant neoplasm of axilla and upper limb lymph nodes; C50.912 Malignant neoplasm of unspecified site of left female breast; J43.9 Emphysema, unspecified; Z79.899 Other long term (current) drug therapy; Z92.21 Personal history of antineoplastic chemotherapy; Z90.13 Acquired absence of bilateral breasts and nipples; Z92.3 Personal history of irradiation
CPT/HCPCS: 80053; 82746; 84443; 85025; 96367; 96372; 96413; 96417; 99214; J0897; J1100; J2469; J7040; J7050; J9045; J9201; J9355

== ENCOUNTER → 2019-09-18 08:22 | Outpatient (BNVA) | payer MEDICARE, SELFPAY | PROVIDERS: PCP Nurse Practitioner Family; Visit Provider Internal Medicine Hematology & Oncology | DX: C78.00 Secondary malignant neoplasm of unspecified lung (principal) | CPT/HCPCS: 36415; 80053; 85025 ==

== ENCOUNTER 2019-09-24 10:23 | Outpatient (CLI) | payer MEDICARE, SELFPAY ==
--- NOTE | 2019-09-24 10:30 | USCV_ITS ---
Soledad Santamaria Age: 64 Gender: F : 1955 Exam Date: 09/24/2019 10:58 Ordering Phys: Michelle Wolfe NP Technologist: Dary Hooks Exam Location: [facility] [place] Indication: LTD TO CHECK EF BREAST CA BP: / HR: 78 Rhythm: Other Technical Quality: Fair MEASUREMENTS (Male / Female) Normal Values 2D ECHO LV Diastolic Diameter PLAX 4.0 cm 4.2 - 5.9 / 3.9 - 5.3 cm LV Systolic Diameter PLAX 2.7 cm LV Chamber Size 3.9 cm IVS Diastolic Thickness 0.9 cm 0.6 - 1.0 / 0.6 - 0.9 cm IVS Systolic Thickness 1.0 cm LVPW Diastolic Thickness 0.9 cm 0.6 - 1.0 / 0.6 - 0.9 cm LVPW Systolic Thickness 1.1 cm RV Chamber Size 2.2 cm LV Ejection Fraction 2D Teich 59.8 % LA Width 2.6 cm LA Height 4.3 cm RA Width 2.2 cm RA Height 3.1 cm M-MODE LV Diastolic Diameter MM 4.0 cm 4.2 - 5.9 / 3.9 - 5.3 cm LV Systolic Diameter MM 2.6 cm LV Ejection Fraction MM Teich 64.8 % IVS Diastolic Thickness MM 0.9 cm 0.6 - 1.0 / 0.6 - 0.9 cm IVS Systolic Thickness MM 1.1 cm LVPW Diastolic Thickness MM 1.0 cm 0.6 - 1.0 / 0.6 - 0.9 cm LVPW Systolic Thickness MM 1.6 cm FINDINGS Left Ventricle Normal left ventricular size, systolic function and wall thickness, with no regional wall motion abnormalities. LVEF is 55-60%. Normal left ventricular wall thickness. Right Ventricle Right Atrium Left Atrium The left atrium is normal in size. Mitral Valve Structurally normal mitral valve. Aortic Valve Structurally normal aortic valve Tricuspid Valve Not visualized Pulmonic Valve Not well visualized Pericardium Normal pericardium Aorta CONCLUSIONS Normal left ventricular function with EF of 55 to 60%. Melo Webber MD (Electronically Signed) Final Date: 24 September 2019 11:55 S
== END 2019-09-24 10:24 | disposition home or self-care (01) ==
LOC: US 10:25
PROVIDERS: PCP Nurse Practitioner Family; Visit Provider Nurse Practitioner
DX: Z79.899 Other long term (current) drug therapy (principal)
CPT/HCPCS: 93308

== ENCOUNTER → 2019-10-02 08:15 | Outpatient (BNVA) | payer MEDICARE, SELFPAY | PROVIDERS: PCP Nurse Practitioner Family; Visit Provider Internal Medicine Hematology & Oncology | DX: C50.919 Malignant neoplasm of unspecified site of unspecified female breast (principal) | CPT/HCPCS: 36415; 80053; 85007; 85027 ==

== ENCOUNTER → 2019-10-15 07:45 | Outpatient (BNVA) | payer MEDICARE, SELFPAY | PROVIDERS: PCP Nurse Practitioner Family; Referring Provider Internal Medicine Hematology & Oncology; Visit Provider Licensed Practical Nurse | DX: G62.9 Polyneuropathy, unspecified (principal) | CPT/HCPCS: 99214 ==

== ENCOUNTER → 2019-10-16 09:06 | Outpatient (BNVA) | payer MEDICARE, SELFPAY | PROVIDERS: PCP Nurse Practitioner Family; Visit Provider Internal Medicine Hematology & Oncology | DX: C50.919 Malignant neoplasm of unspecified site of unspecified female breast (principal) | CPT/HCPCS: 36415; 80053; 85025 ==

== ENCOUNTER 2019-10-19 05:32 | Outpatient (RCR) | payer MEDICARE, SELFPAY ==
[2019-09-21] MEDS: sodium chloride 0.9% 250 ML 75 ML IV (10:25)
[2019-09-21] MEDS: diphenhydrAMINE 25 mg Capsule PO (10:27)
[2019-09-21] MEDS: acetaminophen 325 mg Tablet 650 MG PO (10:27)
--- NOTE | 2019-09-21 15:28 | ONC FU_ITS ---
Dr. Pitts follow up note Patient: Soledad Santamaria Unit #: [id number]: [id number] Dicatated By: Kortney Pitts M.D.Date of Visit:Sep 21, 2019 Onc Med Follow-up/Prog Note History of Present Illness: Mrs. Santamaria is a 64-year-old female with history of left breast carcinoma with bone metastasis. She presented with an abnormal mammogram in 2010. She had apparently had detected an left-sided breast mass in late 2009. She was referred to Dr Gadiel Reed @ [facility] in [place], [place]. In April 2010, she underwent needle core biopsy of the left breast that did confirm invasive ductal carcinoma histological grade 2/3, ER+ DE+ and Her 2 [place] immunostain was 3+. She also had biopsy of a left axillary lymph node that was positive for invasive carcinoma with no lymphoid tissue identified. Her exam prior to chemo revealed a 3 cm mass in the extreme upper outer aspect of the left breast and multiple palpable enlarged lymph nodes-the largest was 2 cm and mobile.. Further workup included a breast MRI which did show biopsy proven malignancy in the left upper outer quadrant measuring 3.3 cm with associated axillary and subpectoral adenopathy. She had multiple satellite nodes with the largest measuring 7 cm. She did undergo MRI guided biopsy on June 08, 2010, which did report invasive cancer. She did have CT of the chest and a bone scan which did not show distant disease,. However, there was an enlarged lymph node in the subcutaneous tissues posterior to the left scapula and was biopsied on May 26, 2010 and was negative for malignancy. She under went neoadjuvant chemotherapy with weekly paclitaxel and Herceptin for 12 cycles from May 2010 to August of 2010 followed by FEC and Herceptin through October 2010. She completed 1 year of Herceptin in May 2011 during which time she was also taking an AI. She did have febrile neutropenia requiring admission in September 2010. She underwent bilateral mastectomies( for abnormal mammogram findings in the right breast) at [facility] in [facility] in November 2010. She did have post mastectomy radiation completed on 03/21/2011. She then underwent reconstruction with bilateral breast implants. Unfortunately in November 2011, the left implant became infected and had to be removed. During work up of the implant abnormality she has found to have a metastatic lesion in her left scapula. She did not have any problems until November of 2012 at which time she was having generalized bone pain, which she thought was a combination of Actonel and Anastrozole. The pain did not improve with stopping these medications. She was transitioned to single agent Tamoxifen. A bone scan revealed increased activity along the lateral margin of the left scapula suspicious of osseous metastatic disease when compared to the bone scan from November 2011. This lesion was biopsied on 12/01/2012 and revealed metastatic disease consistent with the breast primary. She did not have radiation at that time as she was not having significant pain. Mrs Santamaria was restaged and found to have diffuse pulmonary nodules and mediastinal lymphadenopathy and in November 2012, she was enrolled in a clinical trial with Herceptin. Perjeta and Letrozole. She had restaging in March 2014 that revealed slight progression of her pulmonary nodules which did not meet criteria for end point results of the clinical trial and was taken off the trial. Her bone scan was reported as stable. She transferred her care to [facility] in [place], [place] to the care of Dr Mehran Jacobson III in May 2014 due to the difficulty traveling to [facility]. The treatment of letrozole, Herceptin and Perjeta was continued until she disease progression and was changed to Kadcyla in February 2015 after restaging imaging revealed disease progression.And she could not tolerate and it was discontinued after 2 or 3 doses. INTERIM HISTORY: Mrs Santamaria was referred to us in October 2016 for followup at which time, Mrs Santamaria was having right upper back pain, left chest wall pain and right groin pain. She did have restaging with PET/CT on 11/03/2016. The PET/CT revealed multiple FGD avid osteolytic metastases in the left scapula, posterior left 9th rib, T10, T12 and the anterior right acetabulum. Multiple FDG avid metastatic pulmonary nodules represented by 1.9 cm nodule in the posterbasal segment of the right lower lobe with an SUV of 5 and a 1.7 cm nodule in the anterrobasal segment of the left lower lobe with an SUV of 5.1. No hepatic or adrenal metastases identified. Mrs Santamaria was referred to [facility] radiation oncology and underwent radiation to the right hip, left scapula, T10-T12 spine. Her pain resolved with the radiation, offered her palliative chemotherapy with Navelbine and Herceptin. She had agreed to a trial of the chemotherapy. Follow-up CT PET scan showed disease progression chemotherapy was discontinued and she was referred to radiation oncology for palliative radiation therapy. After this cycle of radiation therapy, she was started on lapatinib and Xeloda. She was tolerating it well but she was referred to radiation for C-spine metastases management. At that time her chemotherapy was put on hold. She developed right hip pain for which she received palliative radiation therapy to the 06/25/2017. The lapatinib and Xeloda was restarted but her follow-up tumor markers showed evidence of disease progression as the CA-27-29 gone up to 1346.70 on 08/20/2017 compared to 896.45 on 07/04/2017. Her chemotherapy with Xeloda and lapatinib was discontinued and decided to switch her to weekly Herceptin and Taxane , patient doesn't want take steroids so we recommended Herceptin and Abraxane combination. She did develop nausea vomiting abdominal pain with her last dose of Zometa and doesn't want to take Zometa anymore. We will switch her to Xgeva. There was delay in getting started with the Herceptin/Abraxane. She apparently had positive TB test which required workup and eventually was found to be a false positive. She began her first cycle of Herceptin and Abraxane on 10/09/2017.Last dose of Abraxane/Herceptin was given on 12/17/2017 and because of intolerance Abraxane was discontinued and last dose of Herceptin was given on 12/31/2017 Mrs Santamaria was seen by Dr. Ramirez, oncologist at [facility], for clinical trial and many clinical trials available but due to transportation and financial reasons, patient could not consider any of them. Palliative chemotherapy with carboplatin/gemcitabine/Herceptin or eribulin /Herceptin was recommended. Patient had bone scan and CT scan of chest abdomen done at [facility] which showed widespread metastatic disease. She began chemotherapy with weekly carboplatin, gemcitabine and trastuzumab on 04/15/2018 Follow-up CT PET scan done on 07/05/2018 showed improvement in hepatic metastatic disease since April 2017 study Mixed response to multiple bilateral pulmonary lesion Reactive marrow with splenic activity Osseous metastatic disease seen on April 2017 study is sclerotic and FDG negative Mrs Santamaria was admitted to hospital with abdominal pain and diagnosed with diverticulitis treated successfully with antibiotics and during this time, CT scans of chest abdomen pelvis were done on 07/30/2018 . The scans showed extensive pulmonary metastases and hepatic metastases and bone metastases, stable when compared with CT PET scan done in June 2018. She continued with treatment with carboplatin/gemcitabine/Herceptin. Follow-up CT PET scan done on 10/25/2018 showed mild improvement in hepatic, pulmonary and osseous metastatic disease. She has continued with chemotherapy with weekly Carboplatin, gemcitabine and Herceptin. She is receiving Neupogen support on and Saturday after her treatment on Saturday. She was getting the Neupogen at [place], [place]. She tolerated this plan well. She continues to have exertional shortness of breath but states it is no worse than what is has been but it is no better either. She denies any angina type pain but thinks she may have palpatations once in a while with the shortness of breath. She denies orthopnea. She denies any cough. She does have a very strong family history of CAD-both parents with her father's first OR in his 30's and both brothers have CAD. She has never had a diagnosis of CAD. She did have an echocardiogram on 11/07/2018 that reported EF of 60%-unchanged from previous echo. She reported she had a bug bite on her right breast reconstruction site around where the nipple should be. She states it presented as a big blister then it popped and then formed a scabbed area but no drainage. She had been applying triple antibotic ointment to it. She was referred to plastic surgery at [facility] and ulimately underwent right breast implant removal in December 2018, as per patient and there was no evidence of breast cancer in the specimen. Her chemotherapy was delayed because of dental procedure from 12/30/2018 to 02/04/2019. She resumed treatment on 02/04/2019. Echocardiogram done on 03/09/2019 showed Ejection fraction was 68%. Mrs Santamaria has now completed 11 cycles of Carboplatin/gemcitabine/Herceptin. She has continued denosumab as well. Mrs Santamaria underwent restaging PET/Ct on 04/21/2019. The PET/CT apparently was not compared to the scan she had on 10/25/2018. A review/comparison and an addended report has been requested. However in the interim we discussed the findings of her April 21, 2019 PET in relation to the October 25, 2018 PET. There were multiple pulmonary nodules present with the largest at the right base posteromedially measuring 4.9 x 2 point centimeters with a maximum SUV of 6.71. The results of that SUV on the October 25, 2018 report is somewhat blurry but looks to be 8.4 possibly 6.4 but indicates that the pulmonary nodules are relatively stable. The maximum SUV in the liver was 3.31 and on the October 2018 scan was 5.1. did compare the reports and felt that Soledad had had some improvement in her overall disease. We of course are waiting for the final review and updated report. These findings have been discussed with Mrs Santamaria she understands that it will be compared with the one in October. She has had persistent right arm numbness and has an appointment with Dr Matthew soto for followup on that. She now has noticed right leg numbness. It comes and goes but seems to be lasting longer when it does come. She has had no TIA symptoms. MRI scan of the head done on 05/07/2019 showed no evidence of brain metastases. Due to hyperintense enhancing 9 x 6 mm intrapituitary lesion in the left aspect of pitiutary. Normal optic chasm. Slight [id number] mass effect on the infundibulum. Consistent with a pituitary adenoma. 10 mm metastatic C2 vertebral body lesions likely previously treated. She has continued with carboplatin, gemcitabine and Herceptin. She is also getting monthly Xgeva. Came for follow-up, denies any specific complaints, diarrhea has resolved with Cipro Flagyl and Flagyl, patient said she could not handle Flagyl and felt sick on the last day of Flagyl with nausea and metallic taste in her mouth. Patient denies any abdominal pain, denies any constipation or diarrhea denies any fever chills patient has seen Dr. Zuniga in the past for her upper gastric symptoms like indigestion and mild nausea and she has follow-up appointment with him. She is also wearing cardiac monitoring, denies any cardiac event. And she is scheduled for a follow-up echo on coming . Otherwise no fever or chills, no sore throat, no melena or hematochezia, no hematuria, no new bony pains, no jaundice, tolerating Herceptin/carboplatin/gemcitabine well Medications: Claritin 1 Tablet (of 10 mg) Oral daily, Magnesium 1 Tablet Oral daily PRN, Multivitamin Adults 1 Tablet Oral daily PRN, Potassium 1 Tablet (of 99 mg) Oral daily PRN, Prevacid 1 Capsule (of 30 mg) Capsule Delayed Release Oral daily, Vitamin C 1 Tablet Oral daily PRN Allergies: Codeine Sulfate Review of Systems: Constitutional - Appetite is fair, weight is stable. Energy level is fair. Positive for chills. No fever, night sweats or hot flashes, ENMT - No sinus congestion/drainage. No mouth sores. No sore throat or difficulty swallowing, Hematologic/Lymphatic - No abnormal bruising or bleeding, Respiratory - Positive for occasional shortness of breath, Cardiovascular - No anginal chest pain, palpitations or orthopnea, Gastrointestinal - No nausea, vomiting, GI bleeding, or constipation. No change in bowel habits, no heartburn or early satiety. Positive for diarrhea, Genitourinary (F) - No hematuria, dysuria, increased frequency, urgency, hesitancy or incontinence, Musculoskeletal - Positive for occasional back pain, Neurologic - No dizziness, Psychiatric - No anxiety or depression. Occasional insomnia. Vital Signs: Performed on Sep 21, 2019 09:30 Height - 67.00 in Weight - 148.0 lbs (LOW) BSA - 1.78 sq.m BMI - 23.18 Temperature - 98.3 F (LOW) Pulse - 92 /min Respiration - 18 /min BP - 143/68 mm(hg) (HIGH) O2 Sat - 94 % (LOW) Pain - 0 Performance Status: 1 - No physically strenuous activity, but ambulatory and able to carry out light or sedentary work (e.g. office work, light house work). (ECOG) Physical Examination: Respiratory - Lungs are clear, Cardiovascular - Regular rate and rhythm of heart, Gastrointestinal - Soft, bowel sounds present, nontender, Extremities - Trace edema bilaterally. Lab/Imaging: Test performed on Sep 18, 2019 08:22 Glucose 88 mg/dL BUN 10 mg/dL Creatinine 0.8 mg/dL Cr Clearance (Est) 78.55 mL/min Sodium 137 mmol/L Potassium 4.1 mmol/L Chloride 100 mmol/L CO2 24 mmol/L Calcium 8.6 mg/dL Protein, Total 7.2 g/dL Albumin 4.1 g/dL Globulin 3.1 g/dL Bilirubin, Total 0.5 mg/dL Alkaline Phosphatase 278 IU/L AST (SGOT) 100 IU/L ALT (SGPT) 50 IU/L WBC 5.0 10^9/L RBC 2.91 10^12/L HGB 10.2 g/dL HCT 33.5 % MCV 115.1 fl MCH 35.1 pg MCHC 30.4 g/dL RDW 17.2 % Platelet Count 304 10^9/L MPV 10.5 fL Neutrophils (Gran) 2.28 10^9/L Lymphocytes 1.3 10^9/L Monocytes 1.1 10^9/L Eosinophils 0.2 10^9/L Basophils 0.0 10^9/L Manual Lymphocytes 26.1 % Manual Monocytes 22.8 % Manual Eosinophils 4.2 % Manual Basophils 0.8 % Test performed on Aug 28, 2019 10:55 TSH 3.28 uIU/mL Anion Gap 17.5 eGFR 101.3 mL/min Neutrophil % 52.4 % Lymphocyte % 26.4 % Monocyte % 15.7 % Eosinophil % 4.3 % Basophils % 0.7 % NRBC % 0 % Test performed on Jul 31, 2019 08:00 Magnesium 2.1 mg/dL Test performed on July 17, 2019 10:00 Ferritin 524 ng/mL Iron 94 mcg/dL Vitamin B12 853 pg/mL Iron Binding Capacity (TIBC) 316 mcg/dl % Iron Saturation 29.7 % UIBC 222 mcg/dL Impression: History of left breast cancer with metastases to left scapula status post bilateral mastectomy and left axillary lymph node dissection followed by radiation therapy to left chest wall and axilla in 2008 in [facility] in [facility] status post 1 year of Herceptin and paclitaxel and Arimidex for some time status post radiation therapy to left scapula biopsy-proven metastases Medical record obtained from [facility] [place], [place] and ER/DE positive HER-2/oneida overexpression positive it shows #1 presentation with abnormal screening mammogram in 2010. Patient underwent neoadjuvant chemotherapy with weekly paclitaxel and Herceptin for 12 cycle from May Treated with neoadjuvant chemotherapy FEC plus Herceptin from August 2010 through October 2010 In November 2010 she undergoes bilateral simple mastectomy with pathology demonstrating pT2 N2 disease Mrs Santamaria completed 1 year of adjuvant Herceptin therapy with adjuvant aromatase inhibitor In October 2011 patient transitioned to single agent tamoxifen due to poor tolerance of aromatase inhibitor therapy In October 2012 patient presented with left scapular pain imaging demonstrates abnormal bones lesion with biopsy notable for ER/DE positive HER-2/oneida overexpressing breast cancer, staging evaluation demonstrated bilateral pulmonary nodules with mediastinal lymphadenopathy On 12/16/2012 patient initiates letrozole plus Herceptin plus PERJETA on clinical trial On 02/22/2015 patient demonstrates subjective progression of disease within lungs On 02/25/2015 initiated on KADCYLA History of metastatic disease status post chemotherapy with different agents on multiple occasions most recent hormonal agent was letrozole 2.5 mg Elevated tumor markers CA [address] scan of chest abdomen pelvis done on 10/10/2016 showed multiple bilateral pulmonary nodules consistent with metastatic disease multiple lytic lesion including posterior aspect of T12 vertebral body related dissection of much of right side of T10 vertebra and a large lytic lesion involving the roof of the right acetabulum and right iliac wing and focus of due to dissection lesion in right ischium Stable tiny low-attenuation abnormalities within the liver most likely consistent with multiple tiny cysts Pulmonary emphysema 8 ON 09/24/2016 CA 15.3 342.6 CA 27- 29 493.59 Upper mid back pain and right hip pain due to bone metastases questionable cord compression. She did have restaging with PET/CT on 11/03/2016. The PET/CT revealed multiple FGD avid osteolytic metastases in the left scapula, posterior left 9th rib, T10, T12 and the anterior right acetabulum. Multiple FDG avid metastatic pulmonary nodules represented by 1.9 cm nodule in the posterbasal segment of the right lower lobe with an SUV of 5 and a 1.7 cm nodule in the anterrobasal segment of the left lower lobe with an SUV of 5.1. No hepatic or adrenal metastases identified. Mrs Santamaria was referred to [facility] radiation oncology and underwent radiation to the right hip, left scapula, T10-T12 spine. Her pain resolved with the radiation. offered her palliative chemotherapy with Navelbine and Herceptin. She has agreed to a trial of the chemotherapy. CT scan of the chest August 2017 reported disease progression in the chest and evidence of possible hepatic involvement as well as possible metastatic site involving the left 12th rib. PET/CT scan done on 03/02/2017 showed multiple FDG avid metastatic pulmonary nodules represented by 1.9 cm nodule in the posterior basal segment of right lower lobe with SUV 9.6 compared to 5 on prior exam and a 1.7 cm nodule in the anterior basal segment of left lower lobe with SUV of 4.9 compared to 4.1 on prior exam. There were multiple new hepatic metastatic lesions represented by 1.7 cm nodule with SUV of 5.4 in the anterior superior segment right upper lobe. The PET/CT also reported bone metastasis the left anterior superior iliac spine posteriorly right sacroiliac and T10 T12 right acetabulum, left scapula and posterior left eighth rib. MRI scan of C-spine done on 02/28/2017 showed metastatic lesion of C2 vertebral body. Additional foci of metastatic disease may involve C6 and T1 vertebral bodies multiple disc bulging and spondylosis at C5/C6 and C6/C7 with mild anterior impingement Episode of rectal bleed/abdominal pain probably due to diverticulitis/diverticular bleed CT scan of chest abdomen pelvis done on 03/31/2017 showed pulmonary metastatic disease with variable size of some of the lesion since 10/30/2016 some lesions are smaller and other are larger hepatic and bone metastatic disease similar to the prior exam CT PET scan done on 04/27/2017 showed osseous lesion in left half of C1, and right T1 transverse process and left T1 pedicle, the L1 vertebral body, and L2 vertebral body shows no changes. However, pelvic metastatic disease has worsened with SUV 8.2 compared to 4.1 previously but she is status post radiation therapy to her pelvic bones., Multifocal hepatic metastatic disease is progressed , with SUV 9.8 compared to 5.4 earlier, bilateral hypermetabolic pulmonary nodules are unchanged and right hilar malignant node demonstrated progression Started on lapatinib and Xeloda on 06/08/2017 then it was placed on hold due to radiation therapy to left hip pain. Left posterior hip pain due to bone metastases status post radiation to right hip. Status post radiation therapy to C-spine could complete 9 out of 12 recommended doses because of severe radiation-induced pharyngitis , finished on 06/25/2017 Status palliative post radiation to hip, finished on 06/26/2007 Tumor marker CA-27-29 gone up to 1346.70 on 08/20/2017 from 896.45 on 07/04/2017 Lapatinib and Xeloda discontinued on 08/26/2017 and her treatment plan changed to weekly Herceptin and Taxane 3 weeks on and 1 week off with followup PET/CT after the third cycle. She had GI issues with Zometa ( an episode of nausea vomiting and abdominal pain) so she refuses to repeat the Zometa. She will be offered Xgeva 120 mg every month instead of the Zometa. She began her first cycle of Abraxane and Herceptin on 10/09/2017.Till 12/17/2017 at that time Abraxane was discontinued because of intolerance and last dose of Herceptin was given on 12/31/2017 and because of progressive weakness and fatigue this was also discontinued Patient was referred to [facility] she was seen by Dr. Ramirez on 03/31/2018, many clinical trials are available but due to transportation and financial reason patient could not consider any of them. So palliative chemotherapy with erbulin /Herceptin or carboplatin/gemcitabine/Herceptin was recommended. She did discontinue letrozole on 04/07/2018 and it was recommended that she start on weekly carboplatin AUC 2/gemcitabine 1000 mg/m2/Herceptin day 1, 8 and 15 every 28 days. Along with monthly Xgeva. She began her first cycle on 04/15/2018 .Follow-up CT PET scan done on 07/05/2018 showed hepatic metastatic disease has improved when compared with CT PET scan done in April 2017 and index lesion in the right hepatic dome has now significant central necrosis. There was a mixed response to multiple lung nodules, a left upper lobe nodules is unchanged in size at 1.6 cm but has SUV 3.8 compared to 5.6 before similar improvement is present in the posterior right lower lobe nodule and left lung base nodules. However there are new lesions in the right middle and medial right lobes, the 2 new lesions in the medial right lobe have SUV of 289 and right middle lobe measures 2.6 cm with SUV of 6.8. Multiple osseous lesion seen previously were sclerotic and FDG negative. Suspicious uptake is identified in left femoral neck and proximal right femur and L2. Mrs Santamaria continues with Carboplatin, gemcitabine and Herceptin and monthly Xgeva. She does require intermittent support with growth factors to keep her blood counts up in order to stay on the treatment plan. Follow-up CT PET scan done on 10/25/2018 showed multiple hepatic lesions are seen on prior studies on 07/05/2018 or minimally improved in size and now with improved SUV. Mild improvement in bilateral lung nodules both in size and SUV. Mild improvement is noted in multifocal osseous metastatic disease. Follow-up echocardiogram done on 11/07/2018 showed ejection fraction around 60%. She continued with weekly Carboplatin/gemcitabine and Herceptin. She has completed 11 full cycles and had restaging imaging on 04/21/2019. She had a PET/[facility] at [facility] on 04/21/2019. The PET/CT apparently was not compared to the scan she had on 10/25/2018. A review/comparison and an addended report has been requested. However in the interim we discussed the findings of her April 21, 2019 PET in relation to the October 25, 2018 PET. There were multiple pulmonary nodules present with the largest at the right base posteromedially measuring 4.9 x 2 point centimeters with a maximum SUV of 6.71. The results of that SUV on the October 25, 2018 report is somewhat blurry but looks to be 8.4 possibly 6.4 but indicates that the pulmonary nodules are relatively stable. The maximum SUV in the liver was 3.31 and on the October [address] Pitts did compare the reports and felt that Soledad had had some improvement in her overall disease. She continues with chemotherapy with carboplatin gemcitabine and Herceptin. Thus far there has no been obvious signs of disease progression. Plan: Discussed with patient regarding her labs white blood count 5 hemoglobin 10.2 hematocrit 33.5 platelets 304,000 compared to 112,000 on September 11, 2019 CMP within normal limit except ALT 50 and AST 100 alk phos 278 Clinically, patient is doing well with no new signs symptoms, diarrhea has resolved with Cipro/Flagyl but off and on mild nausea with indigestion-like symptoms, now being followed by Dr. Zuniga. We will proceed with her next scheduled dose of palliative therapy with carboplatin/gemcitabine/Herceptin and then she will return to clinic in 3 weeks with follow-up echo cardiogram and also consider follow-up CT PET scan to assess disease status as CMP shows persistent mildly elevated LFTs and alk phos. Which could be due to disease progression or chemotherapy like gemcitabine-induced side effect. Signed By: Kortney Pitts M.D. <<Signature on File>>
[2019-10-05] MEDS: alteplase 1 mg/mL SDV 2 mL 2 MG IV (10:45)
--- NOTE | 2019-10-05 11:21 | ONC FU_ITS ---
Dr. Pitts follow up note Patient: Soledad Santamaria Unit #: [id number]: 1955 Dicatated By: Kortney Pitts M.D.Date of Visit:Oct 05, 2019 Onc Med Follow-up/Prog Note History of Present Illness: Mrs. Santamaria is a 64-year-old female with history of left breast carcinoma with bone metastasis. She presented with an abnormal mammogram in 2010. She had apparently had detected an left-sided breast mass in late 2009. She was referred to Dr Gadiel Reed @ [facility] in [place], [place]. In April 2010, she underwent needle core biopsy of the left breast that did confirm invasive ductal carcinoma histological grade 2/3, ER+ TN+ and Her 2 [place] immunostain was 3+. She also had biopsy of a left axillary lymph node that was positive for invasive carcinoma with no lymphoid tissue identified. Her exam prior to chemo revealed a 3 cm mass in the extreme upper outer aspect of the left breast and multiple palpable enlarged lymph nodes-the largest was 2 cm and mobile.. Further workup included a breast MRI which did show biopsy proven malignancy in the left upper outer quadrant measuring 3.3 cm with associated axillary and subpectoral adenopathy. She had multiple satellite nodes with the largest measuring 7 cm. She did undergo MRI guided biopsy on June 08, 2010, which did report invasive cancer. She did have CT of the chest and a bone scan which did not show distant disease,. However, there was an enlarged lymph node in the subcutaneous tissues posterior to the left scapula and was biopsied on May 26, 2010 and was negative for malignancy. She under went neoadjuvant chemotherapy with weekly paclitaxel and Herceptin for 12 cycles from May 2010 to August of 2010 followed by FEC and Herceptin through October 2010. She completed 1 year of Herceptin in May 2011 during which time she was also taking an AI. She did have febrile neutropenia requiring admission in September 2010. She underwent bilateral mastectomies( for abnormal mammogram findings in the right breast) at [facility] in [facility] in November 2010. She did have post mastectomy radiation completed on 03/21/2011. She then underwent reconstruction with bilateral breast implants. Unfortunately in November 2011, the left implant became infected and had to be removed. During work up of the implant abnormality she has found to have a metastatic lesion in her left scapula. She did not have any problems until November of 2012 at which time she was having generalized bone pain, which she thought was a combination of Actonel and Anastrozole. The pain did not improve with stopping these medications. She was transitioned to single agent Tamoxifen. A bone scan revealed increased activity along the lateral margin of the left scapula suspicious of osseous metastatic disease when compared to the bone scan from November 2011. This lesion was biopsied on 12/01/2012 and revealed metastatic disease consistent with the breast primary. She did not have radiation at that time as she was not having significant pain. Mrs Santamaria was restaged and found to have diffuse pulmonary nodules and mediastinal lymphadenopathy and in November 2012, she was enrolled in a clinical trial with Herceptin. Perjeta and Letrozole. She had restaging in March 2014 that revealed slight progression of her pulmonary nodules which did not meet criteria for end point results of the clinical trial and was taken off the trial. Her bone scan was reported as stable. She transferred her care to [facility] in [place], [place] to the care of Dr Mehran Jacobson III in May 2014 due to the difficulty traveling to [facility]. The treatment of letrozole, Herceptin and Perjeta was continued until she disease progression and was changed to Kadcyla in February 2015 after restaging imaging revealed disease progression.And she could not tolerate and it was discontinued after 2 or 3 doses. INTERIM HISTORY: Mrs Santamaria was referred to us in October 2016 for followup at which time, Mrs Santamaria was having right upper back pain, left chest wall pain and right groin pain. She did have restaging with PET/CT on 11/03/2016. The PET/CT revealed multiple FGD avid osteolytic metastases in the left scapula, posterior left 9th rib, T10, T12 and the anterior right acetabulum. Multiple FDG avid metastatic pulmonary nodules represented by 1.9 cm nodule in the posterbasal segment of the right lower lobe with an SUV of 5 and a 1.7 cm nodule in the anterrobasal segment of the left lower lobe with an SUV of 5.1. No hepatic or adrenal metastases identified. Mrs Santamaria was [place] [facility] [place] and underwent radiation to the right hip, left scapula, T10-T12 spine. Her pain resolved with the radiation, offered her palliative chemotherapy with Navelbine and Herceptin. She had agreed to a trial of the chemotherapy. Follow-up CT PET scan showed disease progression chemotherapy was discontinued and she was referred to radiation oncology for palliative radiation therapy. After this cycle of radiation therapy, she was started on lapatinib and Xeloda. She was tolerating it well but she was referred to radiation for C-spine metastases management. At that time her chemotherapy was put on hold. She developed right hip pain for which she received palliative radiation therapy to the 06/25/2017. The lapatinib and Xeloda was restarted but her follow-up tumor markers showed evidence of disease progression as the CA-27-29 gone up to 1346.70 on 08/20/2017 compared to 896.45 on 07/04/2017. Her chemotherapy with Xeloda and lapatinib was discontinued and decided to switch her to weekly Herceptin and Taxane , patient doesn't want take steroids so we recommended Herceptin and Abraxane combination. She did develop nausea vomiting abdominal pain with her last dose of Zometa and doesn't want to take Zometa anymore. We will switch her to Xgeva. There was delay in getting started with the Herceptin/Abraxane. She apparently had positive TB test which required workup and eventually was found to be a false positive. She began her first cycle of Herceptin and Abraxane on 10/09/2017.Last dose of Abraxane/Herceptin was given on 12/17/2017 and because of intolerance Abraxane was discontinued and last dose of Herceptin was given on 12/31/2017 Mrs Santamaria was seen by Dr. Ramirez, oncologist at [facility], for clinical trial and many clinical trials available but due to transportation and financial reasons, patient could not consider any of them. Palliative chemotherapy with carboplatin/gemcitabine/Herceptin or eribulin /Herceptin was recommended. Patient had bone scan and CT scan of chest abdomen done at [facility] which showed widespread metastatic disease. She began chemotherapy with weekly carboplatin, gemcitabine and trastuzumab on 04/15/2018 Follow-up CT PET scan done on 07/05/2018 showed improvement in hepatic metastatic disease since April 2017 study Mixed response to multiple bilateral pulmonary lesion Reactive marrow with splenic activity Osseous metastatic disease seen on April 2017 study is sclerotic and FDG negative Mrs Santamaria was admitted to hospital with abdominal pain and diagnosed with diverticulitis treated successfully with antibiotics and during this time, CT scans of chest abdomen pelvis were done on 07/30/2018 . The scans showed extensive pulmonary metastases and hepatic metastases and bone metastases, stable when compared with CT PET scan done in June 2018. She continued with treatment with carboplatin/gemcitabine/Herceptin. Follow-up CT PET scan done on 10/25/2018 showed mild improvement in hepatic, pulmonary and osseous metastatic disease. She has continued with chemotherapy with weekly Carboplatin, gemcitabine and Herceptin. She is receiving Neupogen support on and Saturday after her treatment on Saturday. She was getting the Neupogen at [place], [place]. She tolerated this plan well. She continues to have exertional shortness of breath but states it is no worse than what is has been but it is no better either. She denies any angina type pain but thinks she may have palpatations once in a while with the shortness of breath. She denies orthopnea. She denies any cough. She does have a very strong family history of CAD-both parents with her father's first DC in his 30's and both brothers have CAD. She has never had a diagnosis of CAD. She did have an echocardiogram on 11/07/2018 that reported EF of 60%-unchanged from previous echo. She reported she had a bug bite on her right breast reconstruction site around where the nipple should be. She states it presented as a big blister then it popped and then formed a scabbed area but no drainage. She had been applying triple antibotic ointment to it. She was referred to plastic surgery at [facility] and ulimately underwent right breast implant removal in December 2018, as per patient and there was no evidence of breast cancer in the specimen. Her chemotherapy was delayed because of dental procedure from 12/30/2018 to 02/04/2019. She resumed treatment on 02/04/2019. Echocardiogram done on 03/09/2019 showed Ejection fraction was 68%. Mrs Santamaria underwent restaging PET/Ct on 04/21/2019. The PET/CT apparently was not compared to the scan she had on 10/25/2018. A review/comparison and an addended report has been requested. However in the interim we discussed the findings of her April 21, 2019 PET in relation to the October 25, 2018 PET. There were multiple pulmonary nodules present with the largest at the right base posteromedially measuring 4.9 x 2 point centimeters with a maximum SUV of 6.71. The results of that SUV on the October 25, 2018 report is somewhat blurry but looks to be 8.4 possibly 6.4 but indicates that the pulmonary nodules are relatively stable. The maximum SUV in the liver was 3.31 and on the October 2018 scan was 5.1. did compare the reports and felt that Soledad had had some improvement in her overall disease. We of course are waiting for the final review and updated report. These findings have been discussed with Mrs Santamaria she understands that it will be compared with the one in October. She has had persistent right arm numbness and has an appointment with Dr Matthew soto for followup on that. She now has noticed right leg numbness. It comes and goes but seems to be lasting longer when it does come. She has had no TIA symptoms. MRI scan of the head done on 05/07/2019 showed no evidence of brain metastases. Due to hyperintense enhancing 9 x 6 mm intrapituitary lesion in the left aspect of pitiutary. Normal optic chasm. Slight [id number] mass effect on the infundibulum. Consistent with a pituitary adenoma. 10 mm metastatic C2 vertebral body lesions likely previously treated. She has continued with carboplatin, gemcitabine and Herceptin. She is also getting monthly Xgeva. Echocardiogram done on November 07, 2018 showed ejection fraction around 65% and appears unchanged from before Came for follow-up, denies any specific complaint except left chest wall skin lesion of 1 week duration, as per patient last week she felt a blister and she popped it, there was a oozing, she took ciprofloxacin with that it did improve some. But denies any chest wall pain denies any fever chills, denies any nausea or vomiting. Denies any trauma to left chest wall. Tolerating systemic therapy well otherwise, overall feeling more energetic Medications: Claritin 1 Tablet (of 10 mg) Oral daily, Magnesium 1 Tablet Oral daily PRN, Multivitamin Adults 1 Tablet Oral daily PRN, Potassium 1 Tablet (of 99 mg) Oral daily PRN, Prevacid 1 Capsule (of 30 mg) Capsule Delayed Release Oral b.i.d., Vitamin C 1 Tablet Oral daily PRN Allergies: Codeine Sulfate Review of Systems: Constitutional - Appetite is fair, weight is stable. Energy level is fair. Positive for chills. No fever, night sweats or hot flashes, ENMT - No sinus congestion/drainage. No mouth sores. No sore throat or difficulty swallowing, Hematologic/Lymphatic - No abnormal bruising or bleeding, Respiratory - Positive for occasional shortness of breath, Cardiovascular - No anginal chest pain, palpitations or orthopnea, Gastrointestinal - No nausea, vomiting, GI bleeding, or constipation. No change in bowel habits, no heartburn or early satiety. Positive for diarrhea, Genitourinary (F) - No hematuria, dysuria, increased frequency, urgency, hesitancy or incontinence, Musculoskeletal - Positive for occasional back pain, Integumentary - Pt has a blister like lesion on left outer breast, Neurologic - No dizziness, Psychiatric - No anxiety or depression. Occasional insomnia. Vital Signs: Performed on Oct 05, 2019 09:05 Height - 67.00 in Weight - 149.2 lbs (HIGH) BSA - 1.79 sq.m BMI - 23.37 Temperature - 98.2 F (LOW) Pulse - 76 /min Respiration - 24 /min BP - 136/72 mm(hg) O2 Sat - 97 % Pain - 0 Performance Status: 1 - No physically strenuous activity, but ambulatory and able to carry out light or sedentary work (e.g. office work, light house work). (ECOG) Physical Examination: Respiratory - Lungs are clear, Cardiovascular - Regular rate and rhythm of heart, Chest - Left chest wall scar shows no lesion but about 1 cm skin lesion with a scab at the lateral end of scar line no oozing noticed no underlying fullness, Gastrointestinal - Soft, bowel sounds present, Extremities - No visible edema or rash. Lab/Imaging: Test performed on Oct 02, 2019 08:15 Glucose 80 mg/dL BUN 15 mg/dL Creatinine 0.6 mg/dL Cr Clearance (Est) 104.73 mL/min Sodium 140 mmol/L Potassium 4.1 mmol/L Chloride 104 mmol/L CO2 25 mmol/L Calcium 8.7 mg/dL Protein, Total 6.7 g/dL Albumin 4.1 g/dL Globulin 2.6 g/dL Bilirubin, Total 0.3 mg/dL Alkaline Phosphatase 304 IU/L AST (SGOT) 68 IU/L ALT (SGPT) 41 IU/L WBC 4.4 10^9/L RBC 2.85 10^12/L HGB 9.8 g/dL HCT 32.5 % MCV 114.0 fl MCH 34.4 pg MCHC 30.2 g/dL RDW 16.5 % Platelet Count 138 10^9/L MPV 10.9 fL Manual Lymphocytes 28 % Manual Monocytes 7.0 % Manual Eosinophils 4 % Test performed on Sep 18, 2019 08:22 Neutrophils (Gran) 2.28 10^9/L Lymphocytes 1.3 10^9/L Monocytes 1.1 10^9/L Eosinophils 0.2 10^9/L Basophils 0.0 10^9/L Manual Basophils 0.8 % Test performed on Aug 28, 2019 10:55 TSH 3.28 uIU/mL Anion Gap 17.5 eGFR 101.3 mL/min Neutrophil % 52.4 % Lymphocyte % 26.4 % Monocyte % 15.7 % Eosinophil % 4.3 % Basophils % 0.7 % NRBC % 0 % Test performed on Jul 31, 2019 08:00 Magnesium 2.1 mg/dL Test performed on July 17, 2019 10:00 Ferritin 524 ng/mL Iron 94 mcg/dL Vitamin B12 853 pg/mL Iron Binding Capacity (TIBC) 316 mcg/dl % Iron Saturation 29.7 % UIBC 222 mcg/dL Impression: History of left breast cancer with metastases to left scapula status post bilateral mastectomy and left axillary lymph node dissection followed by radiation therapy to left chest wall and axilla in 2008 in [facility] status post 1 year of Herceptin and paclitaxel and Arimidex for some time status post radiation therapy to left scapula biopsy-proven metastases Medical record obtained from [facility] [place], [place] and ER/TN positive HER-2/oneida overexpression positive it shows #1 presentation with abnormal screening mammogram in 2010. Patient underwent neoadjuvant chemotherapy with weekly paclitaxel and Herceptin for 12 cycle from May Treated with neoadjuvant chemotherapy FEC plus Herceptin from August 2010 through October 2010 In November 2010 she undergoes bilateral simple mastectomy with pathology demonstrating pT2 N2 disease Mrs Santamaria completed 1 year of adjuvant Herceptin therapy with adjuvant aromatase inhibitor In October 2011 patient transitioned to single agent tamoxifen due to poor tolerance of aromatase inhibitor therapy In October 2012 patient presented with left scapular pain imaging demonstrates abnormal bones lesion with biopsy notable for ER/TN positive HER-2/oneida overexpressing breast cancer, staging evaluation demonstrated bilateral pulmonary nodules with mediastinal lymphadenopathy On 12/16/2012 patient initiates letrozole plus Herceptin plus PERJETA on clinical trial On 02/22/2015 patient demonstrates subjective progression of disease within lungs On 02/25/2015 initiated on KADCYLA History of metastatic disease status post chemotherapy with different agents on multiple occasions most recent hormonal agent was letrozole 2.5 mg Elevated tumor markers [place] [address] scan of chest abdomen pelvis done on 10/10/2016 showed multiple bilateral pulmonary nodules consistent with metastatic disease multiple lytic lesion including posterior aspect of T12 vertebral body related dissection of much of right side of T10 vertebra and a large lytic lesion involving the roof of the right acetabulum and right iliac wing and focus of due to dissection lesion in right ischium Stable tiny low-attenuation abnormalities within the liver most likely consistent with multiple tiny cysts Pulmonary emphysema 8 ON 09/24/2016 CA 15.3 342.6 CA 27- 29 493.59 Upper mid back pain and right hip pain due to bone metastases questionable cord compression. She did have restaging with PET/CT on 11/03/2016. The PET/CT revealed multiple FGD avid osteolytic metastases in the left scapula, posterior left 9th rib, T10, T12 and the anterior right acetabulum. Multiple FDG avid metastatic pulmonary nodules represented by 1.9 cm nodule in the posterbasal segment of the right lower lobe with an SUV of 5 and a 1.7 cm nodule in the anterrobasal segment of the left lower lobe with an SUV of 5.1. No hepatic or adrenal metastases identified. Mrs Santamaria was [place] [facility] [place] and underwent radiation to the right hip, left scapula, T10-T12 spine. Her pain resolved with the radiation. offered her palliative chemotherapy with Navelbine and Herceptin. She has agreed to a trial of the chemotherapy. CT scan of the chest August 2017 reported disease progression in the chest and evidence of possible hepatic involvement as well as possible metastatic site involving the left 12th rib. PET/CT scan done on 03/02/2017 showed multiple FDG avid metastatic pulmonary nodules represented by 1.9 cm nodule in the posterior basal segment of right lower lobe with SUV 9.6 compared to 5 on prior exam and a 1.7 cm nodule in the anterior basal segment of left lower lobe with SUV of 4.9 compared to 4.1 on prior exam. There were multiple new hepatic metastatic lesions represented by 1.7 cm nodule with SUV of 5.4 in the anterior superior segment right upper lobe. The PET/CT also reported bone metastasis the left anterior superior iliac spine posteriorly right sacroiliac and T10 T12 right acetabulum, left scapula and posterior left eighth rib. MRI scan of C-spine done on 02/28/2017 showed metastatic lesion of C2 vertebral body. Additional foci of metastatic disease may involve C6 and T1 vertebral bodies multiple disc bulging and spondylosis at C5/C6 and C6/C7 with mild anterior impingement Episode of rectal bleed/abdominal pain probably due to diverticulitis/diverticular bleed CT scan of chest abdomen pelvis done on 03/31/2017 showed pulmonary metastatic disease with variable size of some of the lesion since 10/30/2016 some lesions are smaller and other are larger hepatic and bone metastatic disease similar to the prior exam CT PET scan done on 04/27/2017 showed osseous lesion in left half of C1, and right T1 transverse process and left T1 pedicle, the L1 vertebral body, and L2 vertebral body shows no changes. However, pelvic metastatic disease has worsened with SUV 8.2 compared to 4.1 previously but she is status post radiation therapy to her pelvic bones., Multifocal hepatic metastatic disease is progressed , with SUV 9.8 compared to 5.4 earlier, bilateral hypermetabolic pulmonary nodules are unchanged and right hilar malignant node demonstrated progression Started on lapatinib and Xeloda on 06/08/2017 then it was placed on hold due to radiation therapy to left hip pain. Left posterior hip pain due to bone metastases status post radiation to right hip. Status post radiation therapy to C-spine could complete 9 out of 12 recommended doses because of severe radiation-induced pharyngitis , finished on 06/25/2017 Status palliative post radiation to hip, finished on 06/26/2007 Tumor marker CA-27-29 gone up to 1346.70 on 08/20/2017 from 896.45 on 07/04/2017 Lapatinib and Xeloda discontinued on 08/26/2017 and her treatment plan changed to weekly Herceptin and Taxane 3 weeks on and 1 week off with followup PET/CT after the third cycle. She had GI issues with Zometa ( an episode of nausea vomiting and abdominal pain) so she refuses to repeat the Zometa. She will be offered Xgeva 120 mg every month instead of the Zometa. She began her first cycle of Abraxane and Herceptin on 10/09/2017.Till 12/17/2017 at that time Abraxane was discontinued because of intolerance and last dose of Herceptin was given on 12/31/2017 and because of progressive weakness and fatigue this was also discontinued Patient was referred to [facility] she was seen by Dr. Ramirez on 03/31/2018, many clinical trials are available but due to transportation and financial reason patient could not consider any of them. So palliative chemotherapy with erbulin /Herceptin or carboplatin/gemcitabine/Herceptin was recommended. She did discontinue letrozole on 04/07/2018 and it was recommended that she start on weekly carboplatin AUC 2/gemcitabine 1000 mg/m2/Herceptin day 1, 8 and 15 every 28 days. Along with monthly Xgeva. She began her first cycle on 04/15/2018 .Follow-up CT PET scan done on 07/05/2018 showed hepatic metastatic disease has improved when compared with CT PET scan done in April 2017 and index lesion in the right hepatic dome has now significant central necrosis. There was a mixed response to multiple lung nodules, a left upper lobe nodules is unchanged in size at 1.6 cm but has SUV 3.8 compared to 5.6 before similar improvement is present in the posterior right lower lobe nodule and left lung base nodules. However there are new lesions in the right middle and medial right lobes, the 2 new lesions in the medial right lobe have SUV of 289 and right middle lobe measures 2.6 cm with SUV of 6.8. Multiple osseous lesion seen previously were sclerotic and FDG negative. Suspicious uptake is identified in left femoral neck and proximal right femur and L2. Mrs Santamaria continues with Carboplatin, gemcitabine and Herceptin and monthly Xgeva. She does require intermittent support with growth factors to keep her blood counts up in order to stay on the treatment plan. Follow-up CT PET scan done on 10/25/2018 showed multiple hepatic lesions are seen on prior studies on 07/05/2018 or minimally improved in size and now with improved SUV. Mild improvement in bilateral lung nodules both in size and SUV. Mild improvement is noted in multifocal osseous metastatic disease. Follow-up echocardiogram done on 11/07/2018 showed ejection fraction around 60%. She continued with weekly Carboplatin/gemcitabine and Herceptin. She has completed 11 full cycles and had restaging imaging on 04/21/2019. She had a PET/CT at [facility] on 04/21/2019. The PET/CT apparently was not compared to the scan she had on 10/25/2018. A review/comparison and an addended report has been requested. However in the interim we discussed the findings of her April 21, 2019 PET in relation to the October 25, 2018 PET. There were multiple pulmonary nodules present with the largest at the right base posteromedially measuring 4.9 x 2 point centimeters with a maximum SUV of 6.71. The results of that SUV on the October 25, 2018 report is somewhat blurry but looks to be 8.4 possibly 6.4 but indicates that the pulmonary nodules are relatively stable. The maximum SUV in the liver was 3.31 and on the October 2018 scan was 5.1. did compare the reports and felt that Soledad had had some improvement in her overall disease. She continues with chemotherapy with carboplatin gemcitabine and Herceptin. Thus far there has no been obvious signs of disease progression. Plan: Discussed with patient regarding her labs white blood count 4.4 hemoglobin 9.8 hematocrit 32.5 platelets 138,000 CMP within normal limit except ALT 41 and AST 68 alk phos 304, compared to ALT 50/AST 100/alk phos 278 on September 18, 2019 Echocardiogram shows ejection fraction 65% unchanged when compared with previous echo. Clinically, patient doing well with no signs symptom suggestive of disease progression except abnormal LFTs, etiology could be multifactorial including chemotherapy like gemcitabine. But now improving, otherwise tolerating palliative chemotherapy with carboplatin/gemcitabine/Herceptin well. We will proceed with the next cycle today and then she will return to clinic in 2 weeks with CBC CMP and follow-up CT PET scan which is scheduled for next week in [place]. As for left chest wall skin lesion is concerned probably due to irritation from heavy prosthesis other possibility could be ischemic or local recurrence but less likely. Patient was advised to use topical antibiotics and avoid breast prosthesis until healing, if no improvement will consider skin biopsy to rule out local recurrence. Signed By: Kortney Pitts M.D. <<Signature on File>>
[2019-10-05] MEDS: sodium chloride 0.9% 250 ML 75 ML IV (11:45)
[2019-10-05] MEDS: acetaminophen 325 mg Tablet 650 MG PO (11:50)
[2019-10-05] MEDS: diphenhydrAMINE 25 mg Capsule PO (11:50)
--- NOTE | 2019-10-20 16:11 | ONC FU_ITS ---
Dr. Pitts follow up note Patient: Soledad Santamaria Unit #: [id number]: [id number] Dicatated By: Kortney Pitts M.D.Date of Visit:Oct 19, 2019 Onc Med Follow-up/Prog Note History of Present Illness: Mrs. Santamaria is a 64-year-old female with history of left breast carcinoma with bone metastasis. She presented with an abnormal mammogram in 2010. She had apparently had detected an left-sided breast mass in late 2009. She was referred to Dr Gadiel Reed @ [facility] in [place], [place]. In April 2010, she underwent needle core biopsy of the left breast that did confirm invasive ductal carcinoma histological grade 2/3, ER+ WA+ and Her 2 [place] immunostain was 3+. She also had biopsy of a left axillary lymph node that was positive for invasive carcinoma with no lymphoid tissue identified. Her exam prior to chemo revealed a 3 cm mass in the extreme upper outer aspect of the left breast and multiple palpable enlarged lymph nodes-the largest was 2 cm and mobile.. Further workup included a breast MRI which did show biopsy proven malignancy in the left upper outer quadrant measuring 3.3 cm with associated axillary and subpectoral adenopathy. She had multiple satellite nodes with the largest measuring 7 cm. She did undergo MRI guided biopsy on June 08, 2010, which did report invasive cancer. She did have CT of the chest and a bone scan which did not show distant disease,. However, there was an enlarged lymph node in the subcutaneous tissues posterior to the left scapula and was biopsied on May 26, 2010 and was negative for malignancy. She under went neoadjuvant chemotherapy with weekly paclitaxel and Herceptin for 12 cycles from May 2010 to August of 2010 followed by FEC and Herceptin through October 2010. She completed 1 year of Herceptin in May 2011 during which time she was also taking an AI. She did have febrile neutropenia requiring admission in September 2010. She underwent bilateral mastectomies( for abnormal mammogram findings in the right breast) at [facility] in [facility] in November 2010. She did have post mastectomy radiation completed on 03/21/2011. She then underwent reconstruction with bilateral breast implants. Unfortunately in November 2011, the left implant became infected and had to be removed. During work up of the implant abnormality she has found to have a metastatic lesion in her left scapula. She did not have any problems until November of 2012 at which time she was having generalized bone pain, which she thought was a combination of Actonel and Anastrozole. The pain did not improve with stopping these medications. She was transitioned to single agent Tamoxifen. A bone scan revealed increased activity along the lateral margin of the left scapula suspicious of osseous metastatic disease when compared to the bone scan from November 2011. This lesion was biopsied on 12/01/2012 and revealed metastatic disease consistent with the breast primary. She did not have radiation at that time as she was not having significant pain. Mrs Santamaria was restaged and found to have diffuse pulmonary nodules and mediastinal lymphadenopathy and in November 2012, she was enrolled in a clinical trial with Herceptin. Perjeta and Letrozole. She had restaging in March 2014 that revealed slight progression of her pulmonary nodules which did not meet criteria for end point results of the clinical trial and was taken off the trial. Her bone scan was reported as stable. She transferred her care to [facility] in [place], [place] to the care of Dr Mehran Jacobson III in May 2014 due to the difficulty traveling to [facility]. The treatment of letrozole, Herceptin and Perjeta was continued until she disease progression and was changed to Kadcyla in February 2015 after restaging imaging revealed disease progression.And she could not tolerate and it was discontinued after 2 or 3 doses. INTERIM HISTORY: Mrs Santamaria was referred to us in October 2016 for followup at which time, Mrs Santamaria was having right upper back pain, left chest wall pain and right groin pain. She did have restaging with PET/CT on 11/03/2016. The PET/CT revealed multiple FGD avid osteolytic metastases in the left scapula, posterior left 9th rib, T10, T12 and the anterior right acetabulum. Multiple FDG avid metastatic pulmonary nodules represented by 1.9 cm nodule in the posterbasal segment of the right lower lobe with an SUV of 5 and a 1.7 cm nodule in the anterrobasal segment of the left lower lobe with an SUV of 5.1. No hepatic or adrenal metastases identified. Mrs Santamaria was referred [place] [facility] [place] and underwent radiation to the right hip, left scapula, T10-T12 spine. Her pain resolved with the radiation, offered her palliative chemotherapy with Navelbine and Herceptin. She had agreed to a trial of the chemotherapy. Follow-up CT PET scan showed disease progression chemotherapy was discontinued and she was referred to radiation oncology for palliative radiation therapy. After this cycle of radiation therapy, she was started on lapatinib and Xeloda. She was tolerating it well but she was referred to radiation for C-spine metastases management. At that time her chemotherapy was put on hold. She developed right hip pain for which she received palliative radiation therapy to the 06/25/2017. The lapatinib and Xeloda was restarted but her follow-up tumor markers showed evidence of disease progression as the CA-27-29 gone up to 1346.70 on 08/20/2017 compared to 896.45 on 07/04/2017. Her chemotherapy with Xeloda and lapatinib was discontinued and decided to switch her to weekly Herceptin and Taxane , patient doesn't want take steroids so we recommended Herceptin and Abraxane combination. She did develop nausea vomiting abdominal pain with her last dose of Zometa and doesn't want to take Zometa anymore. We will switch her to Xgeva. There was delay in getting started with the Herceptin/Abraxane. She apparently had positive TB test which required workup and eventually was found to be a false positive. She began her first cycle of Herceptin and Abraxane on 10/09/2017.Last dose of Abraxane/Herceptin was given on 12/17/2017 and because of intolerance Abraxane was discontinued and last dose of Herceptin was given on 12/31/2017 Mrs Santamaria was seen by Dr. Ramirez, oncologist at [facility], for clinical trial and many clinical trials available but due to transportation and financial reasons, patient could not consider any of them. Palliative chemotherapy with carboplatin/gemcitabine/Herceptin or eribulin /Herceptin was recommended. Patient had bone scan and CT scan of chest abdomen done at [facility] which showed widespread metastatic disease. She began chemotherapy with weekly carboplatin, gemcitabine and trastuzumab on 04/15/2018 Follow-up CT PET scan done on 07/05/2018 showed improvement in hepatic metastatic disease since April 2017 study Mixed response to multiple bilateral pulmonary lesion Reactive marrow with splenic activity Osseous metastatic disease seen on April 2017 study is sclerotic and FDG negative Mrs Santamaria was admitted to hospital with abdominal pain and diagnosed with diverticulitis treated successfully with antibiotics and during this time, CT scans of chest abdomen pelvis were done on 07/30/2018 . The scans showed extensive pulmonary metastases and hepatic metastases and bone metastases, stable when compared with CT PET scan done in June 2018. She continued with treatment with carboplatin/gemcitabine/Herceptin. Follow-up CT PET scan done on 10/25/2018 showed mild improvement in hepatic, pulmonary and osseous metastatic disease. She has continued with chemotherapy with weekly Carboplatin, gemcitabine and Herceptin. She is receiving Neupogen support on and Saturday after her treatment on Saturday. She was getting the Neupogen at [facility], [place]. She tolerated this plan well. She continues to have exertional shortness of breath but states it is no worse than what is has been but it is no better either. She denies any angina type pain but thinks she may have palpatations once in a while with the shortness of breath. She denies orthopnea. She denies any cough. She does have a very strong family history of CAD-both parents with her father's first PA in his 30's and both brothers have CAD. She has never had a diagnosis of CAD. She did have an echocardiogram on 11/07/2018 that reported EF of 60%-unchanged from previous echo. She reported she had a bug bite on her right breast reconstruction site around where the nipple should be. She states it presented as a big blister then it popped and then formed a scabbed area but no drainage. She had been applying triple antibotic ointment to it. She was referred to plastic surgery at [facility] and ulimately underwent right breast implant removal in December 2018, as per patient and there was no evidence of breast cancer in the specimen. Her chemotherapy was delayed because of dental procedure from 12/30/2018 to 02/04/2019. She resumed treatment on 02/04/2019. Echocardiogram done on 03/09/2019 showed Ejection fraction was 68%. Mrs Santamaria underwent restaging PET/Ct on 04/21/2019. The PET/CT apparently was not compared to the scan she had on 10/25/2018. A review/comparison and an addended report has been requested. However in the interim we discussed the findings of her April 21, 2019 PET in relation to the October 25, 2018 PET. There were multiple pulmonary nodules present with the largest at the right base posteromedially measuring 4.9 x 2 point centimeters with a maximum SUV of 6.71. The results of that SUV on the October 25, 2018 report is somewhat blurry but looks to be 8.4 possibly 6.4 but indicates that the pulmonary nodules are relatively stable. The maximum SUV in the liver was 3.31 and on the October 2018 scan was 5.1. did compare the reports and felt that Soledad had had some improvement in her overall disease. We of course are waiting for the final review and updated report. These findings have been discussed with Mrs Santamaria she understands that it will be compared with the one in October. She has had persistent right arm numbness and has an appointment with Dr Matthew soto for followup on that. She now has noticed right leg numbness. It comes and goes but seems to be lasting longer when it does come. She has had no TIA symptoms. MRI scan of the head done on 05/07/2019 showed no evidence of brain metastases. Due to hyperintense enhancing 9 x 6 mm intrapituitary lesion in the left aspect of pitiutary. Normal optic chasm. Slight urbt-pi-ozcau mass effect on the infundibulum. Consistent with a pituitary adenoma. 10 mm metastatic C2 vertebral body lesions likely previously treated. She has continued with carboplatin, gemcitabine and Herceptin. She is also getting monthly Xgeva. Echocardiogram done on November 07, 2018 showed ejection fraction around 65% and appears unchanged from before Echocardiogram done on September 24, 2019 showed ejection fraction 55 -60% CT PET scan done on October 14, 2019 showed increasing metabolism of existing pulmonary nodules e.g. dominant pulmonary nodule within the medial right lower lobe with SUV of 8.3 compared to 6.7 in April 2019 and medial left lower lobe nodule is 1.4 x 1.3 cm with SUV 7 compared to 1.1 x 4 cm with SUV of 2.3 but no new lung nodule In abdomen increase in size of dominant cyst within central portion of liver measuring 6.7 x 5.1 with SUV of 8.1 compared to 4.8 by with SUV of 6 there is a new hypermetabolic lesion within the right lower lobe of the liver, size 0.9 cm with maximum SUV 6 increasing hypermetabolic activity in the existing osseous metastasis without new lesion identified e.g. in the sacrum SUV 6.9 compared to 4.6 previously .Came for follow-up, denies any specific complaint except generalized weakness and fatigue but no fever chills, no nausea or vomiting, no diarrhea, constipation, no new bony pains. Medications: Claritin 1 Tablet (of 10 mg) Oral daily, Magnesium 1 Tablet Oral daily PRN, Multivitamin Adults 1 Tablet Oral daily PRN, Potassium 1 Tablet (of 99 mg) Oral daily PRN, Prevacid 1 Capsule (of 30 mg) Capsule Delayed Release Oral b.i.d., Vitamin C 1 Tablet Oral daily PRN Allergies: Codeine Sulfate Review of Systems: Constitutional - Appetite is fair, weight is stable. Energy level is fair. Positive for chills. No fever, night sweats or hot flashes, ENMT - No sinus congestion/drainage. No mouth sores. No sore throat or difficulty swallowing, Hematologic/Lymphatic - No abnormal bruising or bleeding, Respiratory - Positive for occasional shortness of breath, Cardiovascular - No anginal chest pain, palpitations or orthopnea, Gastrointestinal - No nausea, vomiting, GI bleeding, or constipation. No change in bowel habits, no heartburn or early satiety. Positive for diarrhea, Genitourinary (F) - No hematuria, dysuria, increased frequency, urgency, hesitancy or incontinence, Musculoskeletal - Positive for occasional back pain, Neurologic - No dizziness, Psychiatric - No anxiety or depression. Occasional insomnia. Vital Signs: Performed on Oct 19, 2019 08:51 Height - 67.00 in Weight - 149.4 lbs (HIGH) BSA - 1.79 sq.m BMI - 23.40 Temperature - 97.6 F (LOW) Pulse - 78 /min Respiration - 18 /min BP - 150/72 mm(hg) (HIGH) O2 Sat - 93 % (LOW) Pain - 0 Performance Status: 0 - Fully active, able to carry on all predisease activities without restrictions. (ECOG) Physical Examination: Respiratory - Lungs are clear, Cardiovascular - Regular rate and rhythm of heart, Gastrointestinal - Soft, bowel sounds present, Extremities - No swelling, no rash. Lab/Imaging: Test performed on Oct 16, 2019 09:06 Glucose 80 mg/dL BUN 14 mg/dL Creatinine 0.6 mg/dL Cr Clearance (Est) 104.73 mL/min Sodium 141 mmol/L Potassium 4.0 mmol/L Chloride 105 mmol/L CO2 26 mmol/L Calcium 8.6 mg/dL Protein, Total 6.7 g/dL Albumin 3.8 g/dL Globulin 2.9 g/dL Bilirubin, Total 0.3 mg/dL Alkaline Phosphatase 308 IU/L AST (SGOT) 82 IU/L ALT (SGPT) 55 IU/L WBC 4.3 10^9/L RBC 2.65 10^12/L HGB 9.1 g/dL HCT 29.7 % MCV 112.1 fl MCH 34.3 pg MCHC 30.6 g/dL RDW 16.4 % Platelet Count 115 10^9/L MPV 11.4 fL Neutrophils (Gran) 2.04 10^9/L Lymphocytes 1.1 10^9/L Monocytes 0.9 10^9/L Eosinophils 0.2 10^9/L Basophils 0.0 10^9/L Manual Lymphocytes 26.5 % Manual Monocytes 20.6 % Manual Eosinophils 4.2 % Manual Basophils 0.5 % Test performed on Aug 28, 2019 10:55 TSH 3.28 uIU/mL Anion Gap 17.5 eGFR 101.3 mL/min Neutrophil % 52.4 % Lymphocyte % 26.4 % Monocyte % 15.7 % Eosinophil % 4.3 % Basophils % 0.7 % NRBC % 0 % Test performed on Jul 31, 2019 08:00 Magnesium 2.1 mg/dL Test performed on July 17, 2019 10:00 Ferritin 524 ng/mL Iron 94 mcg/dL Vitamin B12 853 pg/mL Iron Binding Capacity (TIBC) 316 mcg/dl % Iron Saturation 29.7 % UIBC 222 mcg/dL Impression: History of left breast cancer with metastases to left scapula status post bilateral mastectomy and left axillary lymph node dissection followed by radiation therapy to left chest wall and axilla in 2008 in [facility] in [facility] status post 1 year of Herceptin and paclitaxel and Arimidex for some time status post radiation therapy to left scapula biopsy-proven metastases Medical record obtained from [facility] [place], [place] and ER/[place] positive HER-2/oneida overexpression positive it shows #1 presentation with abnormal screening mammogram in 2010. Patient underwent neoadjuvant chemotherapy with weekly paclitaxel and Herceptin for 12 cycle from May Treated with neoadjuvant chemotherapy FEC plus Herceptin from August 2010 through October 2010 In November 2010 she undergoes bilateral simple mastectomy with pathology demonstrating pT2 N2 disease Mrs Santamaria completed 1 year of adjuvant Herceptin therapy with adjuvant aromatase inhibitor In October 2011 patient transitioned to single agent tamoxifen due to poor tolerance of aromatase inhibitor therapy In October 2012 patient presented with left scapular pain imaging demonstrates abnormal bones lesion with biopsy notable for ER/WA positive HER-2/oneida overexpressing breast cancer, staging evaluation demonstrated bilateral pulmonary nodules with mediastinal lymphadenopathy On 12/16/2012 patient initiates letrozole plus Herceptin plus PERJETA on clinical trial On 02/22/2015 patient demonstrates subjective progression of disease within lungs On 02/25/2015 initiated on KADCYLA History of metastatic disease status post chemotherapy with different agents on multiple occasions most recent hormonal agent was letrozole 2.5 mg Elevated tumor markers [place] [address] scan of chest abdomen pelvis done on 10/10/2016 showed multiple bilateral pulmonary nodules consistent with metastatic disease multiple lytic lesion including posterior aspect of T12 vertebral body related dissection of much of right side of T10 vertebra and a large lytic lesion involving the roof of the right acetabulum and right iliac wing and focus of due to dissection lesion in right ischium Stable tiny low-attenuation abnormalities within the liver most likely consistent with multiple tiny cysts Pulmonary emphysema 8 ON 09/24/2016 CA 15.3 342.6 CA 27- 29 493.59 Upper mid back pain and right hip pain due to bone metastases questionable cord compression. She did have restaging with PET/CT on 11/03/2016. The PET/CT revealed multiple FGD avid osteolytic metastases in the left scapula, posterior left 9th rib, T10, T12 and the anterior right acetabulum. Multiple FDG avid metastatic pulmonary nodules represented by 1.9 cm nodule in the posterbasal segment of the right lower lobe with an SUV of 5 and a 1.7 cm nodule in the anterrobasal segment of the left lower lobe with an SUV of 5.1. No hepatic or adrenal metastases identified. Mrs Santamaria was referred [place] [facility] [place] and underwent radiation to the right hip, left scapula, T10-T12 spine. Her pain resolved with the radiation. offered her palliative chemotherapy with Navelbine and Herceptin. She has agreed to a trial of the chemotherapy. CT scan of the chest August 2017 reported disease progression in the chest and evidence of possible hepatic involvement as well as possible metastatic site involving the left 12th rib. PET/CT scan done on 03/02/2017 showed multiple FDG avid metastatic pulmonary nodules represented by 1.9 cm nodule in the posterior basal segment of right lower lobe with SUV 9.6 compared to 5 on prior exam and a 1.7 cm nodule in the anterior basal segment of left lower lobe with SUV of 4.9 compared to 4.1 on prior exam. There were multiple new hepatic metastatic lesions represented by 1.7 cm nodule with SUV of 5.4 in the anterior superior segment right upper lobe. The PET/CT also reported bone metastasis the left anterior superior iliac spine posteriorly right sacroiliac and T10 T12 right acetabulum, left scapula and posterior left eighth rib. MRI scan of C-spine done on 02/28/2017 showed metastatic lesion of C2 vertebral body. Additional foci of metastatic disease may involve C6 and T1 vertebral bodies multiple disc bulging and spondylosis at C5/C6 and C6/C7 with mild anterior impingement Episode of rectal bleed/abdominal pain probably due to diverticulitis/diverticular bleed CT scan of chest abdomen pelvis done on 03/31/2017 showed pulmonary metastatic disease with variable size of some of the lesion since 10/30/2016 some lesions are smaller and other are larger hepatic and bone metastatic disease similar to the prior exam CT PET scan done on 04/27/2017 showed osseous lesion in left half of C1, and right T1 transverse process and left T1 pedicle, the L1 vertebral body, and L2 vertebral body shows no changes. However, pelvic metastatic disease has worsened with SUV 8.2 compared to 4.1 previously but she is status post radiation therapy to her pelvic bones., Multifocal hepatic metastatic disease is progressed , with SUV 9.8 compared to 5.4 earlier, bilateral hypermetabolic pulmonary nodules are unchanged and right hilar malignant node demonstrated progression Started on lapatinib and Xeloda on 06/08/2017 then it was placed on hold due to radiation therapy to left hip pain. Left posterior hip pain due to bone metastases status post radiation to right hip. Status post radiation therapy to C-spine could complete 9 out of 12 recommended doses because of severe radiation-induced pharyngitis , finished on 06/25/2017 Status palliative post radiation to hip, finished on 06/26/2007 Tumor marker CA-27-29 gone up to 1346.70 on 08/20/2017 from 896.45 on 07/04/2017 Lapatinib and Xeloda discontinued on 08/26/2017 and her treatment plan changed to weekly Herceptin and Taxane 3 weeks on and 1 week off with followup PET/CT after the third cycle. She had GI issues with Zometa ( an episode of nausea vomiting and abdominal pain) so she refuses to repeat the Zometa. She will be offered Xgeva 120 mg every month instead of the Zometa. She began her first cycle of Abraxane and Herceptin on 10/09/2017.Till 12/17/2017 at that time Abraxane was discontinued because of intolerance and last dose of Herceptin was given on 12/31/2017 and because of progressive weakness and fatigue this was also discontinued Patient was referred to [facility] she was seen by Dr. Ramirez on 03/31/2018, many clinical trials are available but due to transportation and financial reason patient could not consider any of them. So palliative chemotherapy with erbulin /Herceptin or carboplatin/gemcitabine/Herceptin was recommended. She did discontinue letrozole on 04/07/2018 and it was recommended that she start on weekly carboplatin AUC 2/gemcitabine 1000 mg/m2/Herceptin day 1, 8 and 15 every 28 days. Along with monthly Xgeva. She began her first cycle on 04/15/2018 .Follow-up CT PET scan done on 07/05/2018 showed hepatic metastatic disease has improved when compared with CT PET scan done in April 2017 and index lesion in the right hepatic dome has now significant central necrosis. There was a mixed response to multiple lung nodules, a left upper lobe nodules is unchanged in size at 1.6 cm but has SUV 3.8 compared to 5.6 before similar improvement is present in the posterior right lower lobe nodule and left lung base nodules. However there are new lesions in the right middle and medial right lobes, the 2 new lesions in the medial right lobe have SUV of 289 and right middle lobe measures 2.6 cm with SUV of 6.8. Multiple osseous lesion seen previously were sclerotic and FDG negative. Suspicious uptake is identified in left femoral neck and proximal right femur and L2. Mrs Santamaria continues with Carboplatin, gemcitabine and Herceptin and monthly Xgeva. She does require intermittent support with growth factors to keep her blood counts up in order to stay on the treatment plan. Follow-up CT PET scan done on 10/25/2018 showed multiple hepatic lesions are seen on prior studies on 07/05/2018 or minimally improved in size and now with improved SUV. Mild improvement in bilateral lung nodules both in size and SUV. Mild improvement is noted in multifocal osseous metastatic disease. Follow-up echocardiogram done on 11/07/2018 showed ejection fraction around 60%. She continued with weekly Carboplatin/gemcitabine and Herceptin. She has completed 11 full cycles and had restaging imaging on 04/21/2019. She had a PET/CT at [facility] on 04/21/2019. The PET/CT apparently was not compared to the scan she had on 10/25/2018. A review/comparison and an addended report has been requested. However in the interim we discussed the findings of her April 21, 2019 PET in relation to the October 25, 2018 PET. There were multiple pulmonary nodules present with the largest at the right base posteromedially measuring 4.9 x 2 point centimeters with a maximum SUV of 6.71. The results of that SUV on the October 25, 2018 report is somewhat blurry but looks to be 8.4 possibly 6.4 but indicates that the pulmonary nodules are relatively stable. The maximum SUV in the liver was 3.31 and on the October 2018 scan was 5.1. did compare the reports and felt that Soledad had had some improvement in her overall disease. She continues with chemotherapy with carboplatin gemcitabine and Herceptin. Thus far there has no been obvious signs of disease progression. Plan: Discussed with patient regarding her labs white blood count 4.3 hemoglobin 9.1 hematocrit 29.7 platelets 115,000 CMP within normal limits Clinically, patient is doing reasonably well, tolerating palliative chemotherapy with carboplatin/gemcitabine/Herceptin well but with expected side effect e.g. persistent mild/moderate anemia and progressive mild thrombocytopenia. Her follow-up CT PET scan shows no new lesion anywhere except small subcentimeter lesion in right hepatic lobe and most of the areas including skeleton mets showed increase in SUV as well as increasing right hepatic lobe cystic lesion size., Will discuss her the PET scan report with radiologist Dr. Paul crockett as her previous PET scan was done here in [place] and this time she went to [place]. If PET scan confirms disease progression in that case we will discontinue her current chemo regimen which is Herceptin/carboplatin/gemcitabine and consider Fam Trastuderuxtecan (Enhertu) all the side effects possible benefits associated with Enhertu including but not limited to allergic reaction, nausea vomiting, fatigue, hair loss,, pneumonitis neuropathy, bone marrow suppression were mentioned further teaching will done by chemotherapy nurse. She will return to clinic 1 week after treatment is initiated with CBC CMP Signed By: Kortney Pitts M.D. <<Signature on File>>
== END 2019-10-19 23:59 | disposition home or self-care (01) ==
LOC: ONCMED 05:32
PROVIDERS: PCP Nurse Practitioner Family; Visit Provider Internal Medicine Hematology & Oncology
DX: Z51.11 Encounter for antineoplastic chemotherapy (principal); C50.812 Malignant neoplasm of overlapping sites of left female breast; Z17.0 Estrogen receptor positive status [ER+]; C79.51 Secondary malignant neoplasm of bone; C78.01 Secondary malignant neoplasm of right lung; C78.02 Secondary malignant neoplasm of left lung; D61.810 Antineoplastic chemotherapy induced pancytopenia; T45.1X5A Adverse effect of antineoplastic and immunosuppressive drugs, initial encounter
CPT/HCPCS: 36593; 96367; 96375; 96413; 96417; 99214; J1100; J2469; J2997; J7040; J7050; J9045; J9201; J9355

== ENCOUNTER → 2019-11-04 11:15 | Outpatient (BNVA) | payer MEDICARE, SELFPAY | PROVIDERS: PCP Nurse Practitioner Family; Visit Provider Internal Medicine Medical Oncology | DX: C50.919 Malignant neoplasm of unspecified site of unspecified female breast (principal) | CPT/HCPCS: 80053; 85025 ==

== ENCOUNTER → 2019-11-06 12:15 | Outpatient (BNVA) | payer MEDICARE, SELFPAY | PROVIDERS: PCP Nurse Practitioner Family; Visit Provider Specialist | DX: G56.02 Carpal tunnel syndrome, left upper limb (principal) | CPT/HCPCS: 95910; 99213 ==

== ENCOUNTER → 2019-11-11 08:21 | Outpatient (BNVA) | payer MEDICARE, SELFPAY | PROVIDERS: PCP Nurse Practitioner Family; Visit Provider Internal Medicine Medical Oncology | DX: C50.919 Malignant neoplasm of unspecified site of unspecified female breast (principal); C78.00 Secondary malignant neoplasm of unspecified lung | CPT/HCPCS: 80053; 85025 ==

== ENCOUNTER 2019-11-12 06:19 | Outpatient (RCR) | payer MEDICARE, SELFPAY ==
[2019-11-05] MEDS: sodium chloride 0.9% 250 ML 999 ML IV (14:57)
[2019-11-05] MEDS: denosumab 120 mg SDV SUBCUT (14:57)
--- NOTE | 2019-11-18 09:35 | ONC FU_ITS ---
Kerri Wolfe Patient Note Patient: Soledad Santamaria Unit #: [id number]: [id number] Dictated By: Liliana BernsteinDate of Visit: Nov 05, 2019 Onc MED Follow-Up/Prog Note Chief Complaint: Metastatic breast cancer History of Present Illness: Mrs. Santamaria is a 64-year-old female with history of left breast carcinoma with bone metastasis. She presented with an abnormal mammogram in 2010. She had apparently had detected an left-sided breast mass in late 2009. She was referred to Dr Gadiel Reed @ [facility] in [place], [place]. In April 2010, she underwent needle core biopsy of the left breast that did confirm invasive ductal carcinoma histological grade 2/3, ER+ KS+ and Her 2 Oneida immunostain was 3+. She also had biopsy of a left axillary lymph node that was positive for invasive carcinoma with no lymphoid tissue identified. Her exam prior to chemo revealed a 3 cm mass in the extreme upper outer aspect of the left breast and multiple palpable enlarged lymph nodes-the largest was 2 cm and mobile.. Further workup included a breast MRI which did show biopsy proven malignancy in the left upper outer quadrant measuring 3.3 cm with associated axillary and subpectoral adenopathy. She had multiple satellite nodes with the largest measuring 7 cm. She did undergo MRI guided biopsy on June 08, 2010, which did report invasive cancer. She did have CT of the chest and a bone scan which did not show distant disease,. However, there was an enlarged lymph node in the subcutaneous tissues posterior to the left scapula and was biopsied on May 26, 2010 and was negative for malignancy. She under went neoadjuvant chemotherapy with weekly paclitaxel and Herceptin for 12 cycles from May 2010 to August of 2010 followed by FEC and Herceptin through October 2010. She completed 1 year of Herceptin in May 2011 during which time she was also taking an AI. She did have febrile neutropenia requiring admission in September 2010. She underwent bilateral mastectomies( for abnormal mammogram findings in the right breast) at [facility] in [facility] in November 2010. She did have post mastectomy radiation completed on 03/21/2011. She then underwent reconstruction with bilateral breast implants. Unfortunately in November 2011, the left implant became infected and had to be removed. During work up of the implant abnormality she has found to have a metastatic lesion in her left scapula. She did not have any problems until November of 2012 at which time she was having generalized bone pain, which she thought was a combination of Actonel and Anastrozole. The pain did not improve with stopping these medications. She was transitioned to single agent Tamoxifen. A bone scan revealed increased activity along the lateral margin of the left scapula suspicious of osseous metastatic disease when compared to the bone scan from November 2011. This lesion was biopsied on 12/01/2012 and revealed metastatic disease consistent with the breast primary. She did not have radiation at that time as she was not having significant pain. Mrs Santamaria was restaged and found to have diffuse pulmonary nodules and mediastinal lymphadenopathy and in November 2012, she was enrolled in a clinical trial with Herceptin. Perjeta and Letrozole. She had restaging in March 2014 that revealed slight progression of her pulmonary nodules which did not meet criteria for end point results of the clinical trial and was taken off the trial. Her bone scan was reported as stable. She transferred her care to [facility] in [place], [place] to the care of Dr Mehran Jacobson III in May 2014 due to the difficulty traveling to [facility]. The treatment of letrozole, Herceptin and Perjeta was continued until she disease progression and was changed to Kadcyla in February 2015 after restaging imaging revealed disease progression.And she could not tolerate and it was discontinued after 2 or 3 doses. INTERIM HISTORY: Mrs Santamaria was referred to us in October 2016 for followup at which time, Mrs Santamaria was having right upper back pain, left chest wall pain and right groin pain. She did have restaging with PET/CT on 11/03/2016. The PET/CT revealed multiple FGD avid osteolytic metastases in the left scapula, posterior left 9th rib, T10, T12 and the anterior right acetabulum. Multiple FDG avid metastatic pulmonary nodules represented by 1.9 cm nodule in the posterbasal segment of the right lower lobe with an SUV of 5 and a 1.7 cm nodule in the anterrobasal segment of the left lower lobe with an SUV of 5.1. No hepatic or adrenal metastases identified. Mrs Santamaria was referred to [facility] radiation oncology and underwent radiation to the right hip, left scapula, T10-T12 spine. Her pain resolved with the radiation, offered her palliative chemotherapy with Navelbine and Herceptin. She had agreed to a trial of the chemotherapy. Follow-up CT PET scan showed disease progression chemotherapy was discontinued and she was referred to radiation oncology for palliative radiation therapy. After this cycle of radiation therapy, she was started on lapatinib and Xeloda. She was tolerating it well but she was referred to radiation for C-spine metastases management. At that time her chemotherapy was put on hold. She developed right hip pain for which she received palliative radiation therapy to the 06/25/2017. The lapatinib and Xeloda was restarted but her follow-up tumor markers showed evidence of disease progression as the CA-27-29 gone up to 1346.70 on 08/20/2017 compared to 896.45 on 07/04/2017. Her chemotherapy with Xeloda and lapatinib was discontinued and decided to switch her to weekly Herceptin and Taxane , patient doesn't want take steroids so we recommended Herceptin and Abraxane combination. She did develop nausea vomiting abdominal pain with her last dose of Zometa and doesn't want to take Zometa anymore. We will switch her to Xgeva. There was delay in getting started with the Herceptin/Abraxane. She apparently had positive TB test which required workup and eventually was found to be a false positive. She began her first cycle of Herceptin and Abraxane on 10/09/2017.Last dose of Abraxane/Herceptin was given on 12/17/2017 and because of intolerance Abraxane was discontinued and last dose of Herceptin was given on 12/31/2017 Mrs Santamaria was seen by Dr. Ramirez, oncologist at [facility], for clinical trial and many clinical trials available but due to transportation and financial reasons, patient could not consider any of them. Palliative chemotherapy with carboplatin/gemcitabine/Herceptin or eribulin /Herceptin was recommended. Patient had bone scan and CT scan of chest abdomen done at [facility] which showed widespread metastatic disease. She began chemotherapy with weekly carboplatin, gemcitabine and trastuzumab on 04/15/2018 Follow-up CT PET scan done on 07/05/2018 showed improvement in hepatic metastatic disease since April 2017 study Mixed response to multiple bilateral pulmonary lesion Reactive marrow with splenic activity Osseous metastatic disease seen on April 2017 study is sclerotic and FDG negative Mrs Santamaria was admitted to hospital with abdominal pain and diagnosed with diverticulitis treated successfully with antibiotics and during this time, CT scans of chest abdomen pelvis were done on 07/30/2018 . The scans showed extensive pulmonary metastases and hepatic metastases and bone metastases, stable when compared with CT PET scan done in June 2018. She continued with treatment with carboplatin/gemcitabine/Herceptin. Follow-up CT PET scan done on 10/25/2018 showed mild improvement in hepatic, pulmonary and osseous metastatic disease. She has continued with chemotherapy with weekly Carboplatin, gemcitabine and Herceptin. She is receiving Neupogen support on and Saturday after her treatment on Saturday. She was getting the Neupogen at [place], [place]. She tolerated this plan well. She continues to have exertional shortness of breath but states it is no worse than what is has been but it is no better either. She denies any angina type pain but thinks she may have palpatations once in a while with the shortness of breath. She denies orthopnea. She denies any cough. She does have a very strong family history of CAD-both parents with her father's first NH in his 30's and both brothers have CAD. She has never had a diagnosis of CAD. She did have an echocardiogram on 11/07/2018 that reported EF of 60%-unchanged from previous echo. She reported she had a bug bite on her right breast reconstruction site around where the nipple should be. She states it presented as a big blister then it popped and then formed a scabbed area but no drainage. She had been applying triple antibotic ointment to it. She was referred to plastic surgery at [facility] and ulimately underwent right breast implant removal in December 2018, as per patient and there was no evidence of breast cancer in the specimen. Her chemotherapy was delayed because of dental procedure from 12/30/2018 to 02/04/2019. She resumed treatment on 02/04/2019. Echocardiogram done on 03/09/2019 showed Ejection fraction was 68%. Mrs Santamaria underwent restaging PET/Ct on 04/21/2019. The PET/CT apparently was not compared to the scan she had on 10/25/2018. A review/comparison and an addended report has been requested. However in the interim we discussed the findings of her April 21, 2019 PET in relation to the October 25, 2018 PET. There were multiple pulmonary nodules present with the largest at the right base posteromedially measuring 4.9 x 2 point centimeters with a maximum SUV of 6.71. The results of that SUV on the October 25, 2018 report is somewhat blurry but looks to be 8.4 possibly 6.4 but indicates that the pulmonary nodules are relatively stable. The maximum SUV in the liver was 3.31 and on the October 2018 scan was 5.1. did compare the reports and felt that Soledad had had some improvement in her overall disease. We of course are waiting for the final review and updated report. These findings have been discussed with Mrs Santamaria she understands that it will be compared with the one in October. She has had persistent right arm numbness and has an appointment with Dr Matthew soto for followup on that. She now has noticed right leg numbness. It comes and goes but seems to be lasting longer when it does come. She has had no TIA symptoms. MRI scan of the head done on 05/07/2019 showed no evidence of brain metastases. Due to hyperintense enhancing 9 x 6 mm intrapituitary lesion in the left aspect of pitiutary. Normal optic chasm. Slight [id number] mass effect on the infundibulum. Consistent with a pituitary adenoma. 10 mm metastatic C2 vertebral body lesions likely previously treated. She has continued with carboplatin, gemcitabine and Herceptin. She is also getting monthly Xgeva. Echocardiogram done on November 07, 2018 showed ejection fraction around 65% and appears unchanged from before Echocardiogram done on September 24, 2019 showed ejection fraction 55 -60% CT PET scan done on October 14, 2019 showed increasing metabolism of existing pulmonary nodules e.g. dominant pulmonary nodule within the medial right lower lobe with SUV of 8.3 compared to 6.7 in April 2019 and medial left lower lobe nodule is 1.4 x 1.3 cm with SUV 7 compared to 1.1 x 4 cm with SUV of 2.3 but no new lung nodule In abdomen increase in size of dominant cyst within central portion of liver measuring 6.7 x 5.1 with SUV of 8.1 compared to 4.8 by with SUV of 6 there is a new hypermetabolic lesion within the right lower lobe of the liver, size 0.9 cm with maximum SUV 6 increasing hypermetabolic activity in the existing osseous metastasis without new lesion identified e.g. in the sacrum SUV 6.9 compared to 4.6 previously. Due to the disease progression, Dr. Pitts has recommended further treatment with Enhertu (fam-trastuzumab deruxtecan) an anti-HER2; monoclonal antibody; antineoplastic agent, topoisomerase I inhibitor. She is here today for her first cycle. She states overall she is doing about the same as she has been. She has no new concerns today. She remains active around the house but tires easily. She denies any new pain. She has had no fever or chills. She has had no signs of infection for at least the last 72 hours. She denies any COVID symptoms or known exposure or any pending COVID testing personally. Her ECOG is 1. Past Medical History: Cancer (breast (left)) in 2008 Past Surgical History: Cholecystectomy Colonoscopy Hysterectomy Nisson wrap Right breast implant removed Tonsillectomy Flu vaccine in 2019 - Given in right deltoid/lc Flucevax in 2018 - right deltoid Portacatheter in 2017 Mastectomy in 2008 - bilateral October of 2015. She had an unknown rupture and repair Allergies: Codeine Sulfate Medications: Claritin 1 Tablet (of 10 mg) Oral daily Magnesium 1 Tablet Oral daily PRN Multivitamin Adults 1 Tablet Oral daily PRN Potassium 1 Tablet (of 99 mg) Oral daily PRN Prevacid 1 Capsule (of 30 mg) Capsule Delayed Release Oral b.i.d. Vitamin C 1 Tablet Oral daily PRN Family History: Ms. Santamaria's mother at age 89: heart attack. Ms. Santamaria's father is alive. Social History: Ms. Santamaria is and she is a disabled. Ms. Santamaria quit smoking 13 years ago but had smoked 1.0 pack/day for 33 years. She has no history of drinking. Ms. Santamaria reports the following support systems: lives with spouse, significant other, family, or friends, lives in own house, supportive family/friends willing to assist with needs, and adequate transportation available for expected visits. Her diet consists of regular meals. She indicates her activity level as: daily activities. Review Of Symptoms: Constitutional Denies fevers, chills, night sweats, or weight loss. States she feels pretty good overall but I just have no stamina . Allergic/Immunologic No reactions. Eyes Denies significant visual changes. No diplopia. No amaurosis. ENMT Denies changes in hearing, sore throat, mouth sores, difficulty or changes in swallowing ability, and/or sinus drainage. Endocrine No diabetes, thyroid disease or hormone replacement. Denies hot flashes or night sweats. Hematologic/Lymphatic Denies easy bruising or bleeding. The patient denies any tender or palpable lymph nodes. Breasts No concerns Respiratory dyspnea on exertion-short of breath-stable. Denies chest pain, cough or hemoptysis. Denies orthopnea. Cardiovascular Denies anginal chest pain, palpitations or orthopnea. Gastrointestinal Denies current nausea, vomiting, diarrhea, GI bleeding. She has intermittent constipation but has a regimen that works for her. Genitourinary (F) No hematuria, hesitancy, incontinence, vaginal bleeding, discharge or other problems with urination. Musculoskeletal Denies joint pain, swelling or redness. No decreased range of motion. Integumentary Denies chronic rashes, inflammation, ulcerations or skin changes. Neurologic Denies headache, blurred vision, and no areas of focal weakness or numbness. Normal gait. No sensory problems. Psychiatric Denies insomnia, depression, estelita or mood swings. Vital Signs: Performed on Nov 05, 2019 14:07 Height - 67.00 in Weight - 148.0 lbs (LOW) BSA - 1.78 sq.m BMI - 23.18 Temperature - 97.8 F (LOW) Pulse - 108 /min (HIGH) Respiration - 22 /min BP - 138/75 mm(hg) O2 Sat - 93 % (LOW) Pain - 0,1 - No physically strenuous activity, but ambulatory and able to carry out light or sedentary work (e.g. office work, light house work). (ECOG) Physical Examination: Constitutional Alert, oriented, no acute distress. Skin pink, warm and dry. Head Normocephalic; atraumatic. Eyes Conjunctivae and sclerae are clear and without icterus. Pupils are reactive and equal. ENMT No mouth sores or yeast. Neck Supple without masses or thyromegaly. No jugular venous distension. Hematologic/Lymphatic No petechiae or purpura. Respiratory Lungs are diminished bilaterally to auscultation without rhonchi or wheezing. Cardiovascular Regular rate and rhythm of heart without murmurs,clicks, gallops or rubs. Back/Spine Non-tender to palpation. Extremities No visible deformities, no cyanosis, clubbing or edema. Musculoskeletal No tenderness or swelling, normal range of motion without obvious weakness. Integumentary No rashes or lesions. Neurologic No sensory or motor deficits, normal cerebellar function, normal gait. Psychiatric Alert and oriented times three. Coherent speech. Verbalizes understanding of our discussions today. Laboratory:Test performed on Nov 11, 2019 08:21 Glucose 113 mg/dL BUN 19 mg/dL Creatinine 0.8 mg/dL Cr Clearance (Est) 76.28 mL/min Sodium 134 mmol/L Potassium 3.7 mmol/L Chloride 96 mmol/L CO2 24 mmol/L Calcium 8.6 mg/dL Protein, Total 7.3 g/dL Albumin 4.0 g/dL Globulin 3.3 g/dL Bilirubin, Total 0.9 mg/dL Alkaline Phosphatase 462 IU/L AST (SGOT) 80 IU/L ALT (SGPT) 77 IU/L WBC 7.0 10^9/L RBC 3.68 10^12/L HGB 12.1 g/dL HCT 38.8 % MCV 105.4 fl MCH 32.9 pg MCHC 31.2 g/dL RDW 15.2 % Platelet Count 161 10^9/L MPV 11.0 fL Neutrophils (Gran) 5.29 10^9/L Lymphocytes 1.2 10^9/L Monocytes 0.2 10^9/L Eosinophils 0.3 10^9/L Basophils 0.0 10^9/L Manual Lymphocytes 16.6 % Manual Monocytes 2.3 % Manual Eosinophils 4.4 % Manual Basophils 0.4 % Test performed on Aug 28, 2019 10:55 TSH 3.28 uIU/mL Anion Gap 17.5 eGFR 101.3 mL/min Neutrophil % 52.4 % Lymphocyte % 26.4 % Monocyte % 15.7 % Eosinophil % 4.3 % Basophils % 0.7 % NRBC % 0 % Test performed on Jul 31, 2019 08:00 Magnesium 2.1 mg/dL Test performed on July 17, 2019 10:00 Ferritin 524 ng/mL Iron 94 mcg/dL Vitamin B12 853 pg/mL Iron Binding Capacity (TIBC) 316 mcg/dl % Iron Saturation 29.7 % UIBC 222 mcg/dL Impression: History of left breast cancer with metastases to left scapula status post bilateral mastectomy and left axillary lymph node dissection followed by radiation therapy to left chest wall and axilla in 2008 in [facility] in [facility] status post 1 year of Herceptin and paclitaxel and Arimidex for some time status post radiation therapy to left scapula biopsy-proven metastases Medical record obtained from [facility] [place], [place] and ER/[place] positive HER-2/oneida overexpression positive it shows #1 presentation with abnormal screening mammogram in 2010. Patient underwent neoadjuvant chemotherapy with weekly paclitaxel and Herceptin for 12 cycle from May Treated with neoadjuvant chemotherapy FEC plus Herceptin from August 2010 through October 2010 In November 2010 she undergoes bilateral simple mastectomy with pathology demonstrating pT2 N2 disease Mrs Santamaria completed 1 year of adjuvant Herceptin therapy with adjuvant aromatase inhibitor In October 2011 patient transitioned to single agent tamoxifen due to poor tolerance of aromatase inhibitor therapy In October 2012 patient presented with left scapular pain imaging demonstrates abnormal bones lesion with biopsy notable for ER/KS positive HER-2/oneida overexpressing breast cancer, staging evaluation demonstrated bilateral pulmonary nodules with mediastinal lymphadenopathy On 12/16/2012 patient initiates letrozole plus Herceptin plus PERJETA on clinical trial On 02/22/2015 patient demonstrates subjective progression of disease within lungs On 02/25/2015 initiated on KADCYLA History of metastatic disease status post chemotherapy with different agents on multiple occasions most recent hormonal agent was letrozole 2.5 mg Elevated tumor markers [place] [address] scan of chest abdomen pelvis done on 10/10/2016 showed multiple bilateral pulmonary nodules consistent with metastatic disease multiple lytic lesion including posterior aspect of T12 vertebral body related dissection of much of right side of T10 vertebra and a large lytic lesion involving the roof of the right acetabulum and right iliac wing and focus of due to dissection lesion in right ischium Stable tiny low-attenuation abnormalities within the liver most likely consistent with multiple tiny cysts Pulmonary emphysema 8 ON 09/24/2016 CA 15.3 342.6 CA 27- 29 493.59 Upper mid back pain and right hip pain due to bone metastases questionable cord compression. She did have restaging with PET/CT on 11/03/2016. The PET/CT revealed multiple FGD avid osteolytic metastases in the left scapula, posterior left 9th rib, T10, T12 and the anterior right acetabulum. Multiple FDG avid metastatic pulmonary nodules represented by 1.9 cm nodule in the posterbasal segment of the right lower lobe with an SUV of 5 and a 1.7 cm nodule in the anterrobasal segment of the left lower lobe with an SUV of 5.1. No hepatic or adrenal metastases identified. Mrs Santamaria was referred to [facility] radiation oncology and underwent radiation to the right hip, left scapula, T10-T12 spine. Her pain resolved with the radiation. offered her palliative chemotherapy with Navelbine and Herceptin. She has agreed to a trial of the chemotherapy. CT scan of the chest August 2017 reported disease progression in the chest and evidence of possible hepatic involvement as well as possible metastatic site involving the left 12th rib. PET/CT scan done on 03/02/2017 showed multiple FDG avid metastatic pulmonary nodules represented by 1.9 cm nodule in the posterior basal segment of right lower lobe with SUV 9.6 compared to 5 on prior exam and a 1.7 cm nodule in the anterior basal segment of left lower lobe with SUV of 4.9 compared to 4.1 on prior exam. There were multiple new hepatic metastatic lesions represented by 1.7 cm nodule with SUV of 5.4 in the anterior superior segment right upper lobe. The PET/CT also reported bone metastasis the left anterior superior iliac spine posteriorly right sacroiliac and T10 T12 right acetabulum, left scapula and posterior left eighth rib. MRI scan of C-spine done on 02/28/2017 showed metastatic lesion of C2 vertebral body. Additional foci of metastatic disease may involve C6 and T1 vertebral bodies multiple disc bulging and spondylosis at C5/C6 and C6/C7 with mild anterior impingement Episode of rectal bleed/abdominal pain probably due to diverticulitis/diverticular bleed CT scan of chest abdomen pelvis done on 03/31/2017 showed pulmonary metastatic disease with variable size of some of the lesion since 10/30/2016 some lesions are smaller and other are larger hepatic and bone metastatic disease similar to the prior exam CT PET scan done on 04/27/2017 showed osseous lesion in left half of C1, and right T1 transverse process and left T1 pedicle, the L1 vertebral body, and L2 vertebral body shows no changes. However, pelvic metastatic disease has worsened with SUV 8.2 compared to 4.1 previously but she is status post radiation therapy to her pelvic bones., Multifocal hepatic metastatic disease is progressed , with SUV 9.8 compared to 5.4 earlier, bilateral hypermetabolic pulmonary nodules are unchanged and right hilar malignant node demonstrated progression Started on lapatinib and Xeloda on 06/08/2017 then it was placed on hold due to radiation therapy to left hip pain. Left posterior hip pain due to bone metastases status post radiation to right hip. Status post radiation therapy to C-spine could complete 9 out of 12 recommended doses because of severe radiation-induced pharyngitis , finished on 06/25/2017 Status palliative post radiation to hip, finished on 06/26/2007 Tumor marker CA-27-29 gone up to 1346.70 on 08/20/2017 from 896.45 on 07/04/2017 Lapatinib and Xeloda discontinued on 08/26/2017 and her treatment plan changed to weekly Herceptin and Taxane 3 weeks on and 1 week off with followup PET/CT after the third cycle. She had GI issues with Zometa ( an episode of nausea vomiting and abdominal pain) so she refuses to repeat the Zometa. She will be offered Xgeva 120 mg every month instead of the Zometa. She began her first cycle of Abraxane and Herceptin on 10/09/2017.Till 12/17/2017 at that time Abraxane was discontinued because of intolerance and last dose of Herceptin was given on 12/31/2017 and because of progressive weakness and fatigue this was also discontinued Patient was referred to [facility] she was seen by Dr. Ramirez on 03/31/2018, many clinical trials are available but due to transportation and financial reason patient could not consider any of them. So palliative chemotherapy with erbulin /Herceptin or carboplatin/gemcitabine/Herceptin was recommended. She did discontinue letrozole on 04/07/2018 and it was recommended that she start on weekly carboplatin AUC 2/gemcitabine 1000 mg/m2/Herceptin day 1, 8 and 15 every 28 days. Along with monthly Xgeva. She began her first cycle on 04/15/2018 .Follow-up CT PET scan done on 07/05/2018 showed hepatic metastatic disease has improved when compared with CT PET scan done in April 2017 and index lesion in the right hepatic dome has now significant central necrosis. There was a mixed response to multiple lung nodules, a left upper lobe nodules is unchanged in size at 1.6 cm but has SUV 3.8 compared to 5.6 before similar improvement is present in the posterior right lower lobe nodule and left lung base nodules. However there are new lesions in the right middle and medial right lobes, the 2 new lesions in the medial right lobe have SUV of 289 and right middle lobe measures 2.6 cm with SUV of 6.8. Multiple osseous lesion seen previously were sclerotic and FDG negative. Suspicious uptake is identified in left femoral neck and proximal right femur and L2. Mrs Santamaria continues with Carboplatin, gemcitabine and Herceptin and monthly Xgeva. She does require intermittent support with growth factors to keep her blood counts up in order to stay on the treatment plan. Follow-up CT PET scan done on 10/25/2018 showed multiple hepatic lesions are seen on prior studies on 07/05/2018 or minimally improved in size and now with improved SUV. Mild improvement in bilateral lung nodules both in size and SUV. Mild improvement is noted in multifocal osseous metastatic disease. Follow-up echocardiogram done on 11/07/2018 showed ejection fraction around 60%. She continued with weekly Carboplatin/gemcitabine and Herceptin. She has completed 11 full cycles and had restaging imaging on 04/21/2019. She had a [facility] on 04/21/2019. The PET/CT apparently was not compared to the scan she had on 10/25/2018. A review/comparison and an addended report has been requested. However in the interim we discussed the findings of her April 21, 2019 PET in relation to the October 25, 2018 PET. There were multiple pulmonary nodules present with the largest at the right base posteromedially measuring 4.9 x 2 point centimeters with a maximum SUV of 6.71. The results of that SUV on the October 25, 2018 report is somewhat blurry but looks to be 8.4 possibly 6.4 but indicates that the pulmonary nodules are relatively stable. The maximum SUV in the liver was 3.31 and on the October 2018 scan was 5.1. did compare the reports and felt that Soledad had had some improvement in her overall disease. She continued with chemotherapy with carboplatin gemcitabine and Herceptin. As her recent PET scan confirms disease progression she will discontinue her current chemo regimen with Herceptin/carboplatin/gemcitabine and prior approval was requested for Fam Trastuzumab deruxtecan (Enhertu). Dr Pitts had discussed the side effects possible benefits associated with Enhertu including but not limited to allergic reaction, nausea vomiting, fatigue, hair loss,, pneumonitis, neuropathy, bone marrow suppression amongst others. Mrs Santamaria has consented to treatment and we do have approval from insurance. BREAST CANCER TREATMENT HISTORY SUMMARY Paclitaxel Herceptin for 12 cycles from May 2010 to August 2010 [facility]EC and Herceptin through October 2010 Aromatase inhibitor began in October 2010 Bilateral mastectomies November 2010???postmastectomy radiation completed 03/21/2011 Tamoxifen 2013 Clinical trial with Herceptin, Perjeta and letrozole beginning November 2012 through February 2015 Kadcyla began in February 2015 but was stopped after 2-3 doses due to intolerance Radiation to the right hip, left scapula, T10-T12 spine in October 2016. She is also started on lapatinib and Xeloda which continued through August 2017. She had elevation of tumor markers and at that time was switched to Herceptin and Abraxane on 10/09/2017. She stopped the Abraxane after her last dose on 12/17/2017 because of intolerance and Herceptin was then given on 12/31/2017. She was referred to [facility] for possible clinical trials but due to transportation and financial reasons she could not consider any of them. She began palliative chemotherapy with carboplatin gemcitabine and trastuzumab on 04/15/2018. She was also getting monthly Xgeva. She is remained on this regimen until her most recent PET/CT from October 2019 which is show disease progression. She will be transitioned to Enhertu (11/05/2019). Plan: 1. Proceed with Enhertu at normal dosing 5.4 mg/kg every 3 weeks until disease progression or unacceptable toxicity. 2. Continue with current antiemetics as needed. 3. Supportive care as needed with hydration and antiemetics. 4. Labs from November 04, 2019 were reviewed in detail and discussed with Ms. Santamaria and a copy was given to her. WBC 10.5, hemoglobin 12.0 platelets 389,000 ANC is 5750 creatinine 0.7 her ALT was 129 AST was 167 alk phos was 429. We have elected to pursue treatment and monitor her LFTs for now. 5. We will plan to see her back in 1 week for day 8 follow-up with CBC CMP. 6. We did discuss known side effects of Enhertu to include but not limited to interstitial lung disease, pneumonitis (cough, dyspnea, fever and increasing shortness of breath) nausea, fatigue, vomiting, alopecia, constipation, decreased appetite, anemia, neutropenia, diarrhea, leukopenia, cough and thrombocytopenia. Mrs. Santamaria is aware to contact us if she has any new symptoms of any kind. 7. Mrs Santamaria was instructed to contact us in the interim should questions or problems arise. Signed By: Liliana Bernstein-, AOCNP Kortney Pitts MD <<Signature on File>>
--- NOTE | 2019-11-21 23:33 | ONC FU_ITS ---
Kerri Wolfe Patient Note Patient: Soledad Santamaria Unit #: [id number]: 1955 Dictated By: Liliana BernsteinDate of Visit: Nov 12, 2019 Onc MED Follow-Up/Prog Note Chief Complaint: Metastatic breast cancer History of Present Illness: Mrs. Santamaria is a 64-year-old female with history of left breast carcinoma with bone metastasis. She presented with an abnormal mammogram in 2010. She had apparently had detected an left-sided breast mass in late 2009. She was referred to Dr Gadiel Reed @ [facility] in [place], [place]. In April 2010, she underwent needle core biopsy of the left breast that did confirm invasive ductal carcinoma histological grade 2/3, ER+ MS+ and Her 2 Oneida immunostain was 3+. She also had biopsy of a left axillary lymph node that was positive for invasive carcinoma with no lymphoid tissue identified. Her exam prior to chemo revealed a 3 cm mass in the extreme upper outer aspect of the left breast and multiple palpable enlarged lymph nodes-the largest was 2 cm and mobile.. Further workup included a breast MRI which did show biopsy proven malignancy in the left upper outer quadrant measuring 3.3 cm with associated axillary and subpectoral adenopathy. She had multiple satellite nodes with the largest measuring 7 cm. She did undergo MRI guided biopsy on June 08, 2010, which did report invasive cancer. She did have CT of the chest and a bone scan which did not show distant disease,. However, there was an enlarged lymph node in the subcutaneous tissues posterior to the left scapula and was biopsied on May 26, 2010 and was negative for malignancy. She under went neoadjuvant chemotherapy with weekly paclitaxel and Herceptin for 12 cycles from May 2010 to August of 2010 followed by FEC and Herceptin through October 2010. She completed 1 year of Herceptin in May 2011 during which time she was also taking an AI. She did have febrile neutropenia requiring admission in September 2010. She underwent bilateral mastectomies( for abnormal mammogram findings in the right breast) at [facility] in [facility] in November 2010. She did have post mastectomy radiation completed on 03/21/2011. She then underwent reconstruction with bilateral breast implants. Unfortunately in November 2011, the left implant became infected and had to be removed. During work up of the implant abnormality she has found to have a metastatic lesion in her left scapula. She did not have any problems until November of 2012 at which time she was having generalized bone pain, which she thought was a combination of Actonel and Anastrozole. The pain did not improve with stopping these medications. She was transitioned to single agent Tamoxifen. A bone scan revealed increased activity along the lateral margin of the left scapula suspicious of osseous metastatic disease when compared to the bone scan from November 2011. This lesion was biopsied on 12/01/2012 and revealed metastatic disease consistent with the breast primary. She did not have radiation at that time as she was not having significant pain. Mrs Santamaria was restaged and found to have diffuse pulmonary nodules and mediastinal lymphadenopathy and in November 2012, she was enrolled in a clinical trial with Herceptin. Perjeta and Letrozole. She had restaging in March 2014 that revealed slight progression of her pulmonary nodules which did not meet criteria for end point results of the clinical trial and was taken off the trial. Her bone scan was reported as stable. She transferred her care to [facility] in [place], [place] to the care of Dr Mehran Jacobson III in May 2014 due to the difficulty traveling to [facility]. The treatment of letrozole, Herceptin and Perjeta was continued until she disease progression and was changed to Kadcyla in February 2015 after restaging imaging revealed disease progression.And she could not tolerate and it was discontinued after 2 or 3 doses. INTERIM HISTORY: Mrs Santamaria was referred to us in October 2016 for followup at which time, Mrs Santamaria was having right upper back pain, left chest wall pain and right groin pain. She did have restaging with PET/CT on 11/03/2016. The PET/CT revealed multiple FGD avid osteolytic metastases in the left scapula, posterior left 9th rib, T10, T12 and the anterior right acetabulum. Multiple FDG avid metastatic pulmonary nodules represented by 1.9 cm nodule in the posterbasal segment of the right lower lobe with an SUV of 5 and a 1.7 cm nodule in the anterrobasal segment of the left lower lobe with an SUV of 5.1. No hepatic or adrenal metastases identified. Mrs Santamaria was referred to [facility] and underwent radiation to the right hip, left scapula, T10-T12 spine. Her pain resolved with the radiation, offered her palliative chemotherapy with Navelbine and Herceptin. She had agreed to a trial of the chemotherapy. Follow-up CT PET scan showed disease progression chemotherapy was discontinued and she was referred to radiation oncology for palliative radiation therapy. After this cycle of radiation therapy, she was started on lapatinib and Xeloda. She was tolerating it well but she was referred to radiation for C-spine metastases management. At that time her chemotherapy was put on hold. She developed right hip pain for which she received palliative radiation therapy to the 06/25/2017. The lapatinib and Xeloda was restarted but her follow-up tumor markers showed evidence of disease progression as the CA-27-29 gone up to 1346.70 on 08/20/2017 compared to 896.45 on 07/04/2017. Her chemotherapy with Xeloda and lapatinib was discontinued and decided to switch her to weekly Herceptin and Taxane , patient doesn't want take steroids so we recommended Herceptin and Abraxane combination. She did develop nausea vomiting abdominal pain with her last dose of Zometa and doesn't want to take Zometa anymore. We will switch her to Xgeva. There was delay in getting started with the Herceptin/Abraxane. She apparently had positive TB test which required workup and eventually was found to be a false positive. She began her first cycle of Herceptin and Abraxane on 10/09/2017.Last dose of Abraxane/Herceptin was given on 12/17/2017 and because of intolerance Abraxane was discontinued and last dose of Herceptin was given on 12/31/2017 Mrs Santamaria was seen by Dr. Ramirez, oncologist at [facility], for clinical trial and many clinical trials available but due to transportation and financial reasons, patient could not consider any of them. Palliative chemotherapy with carboplatin/gemcitabine/Herceptin or eribulin /Herceptin was recommended. Patient had bone scan and CT scan of chest abdomen done at [facility] which showed widespread metastatic disease. She began chemotherapy with weekly carboplatin, gemcitabine and trastuzumab on 04/15/2018 Follow-up CT PET scan done on 07/05/2018 showed improvement in hepatic metastatic disease since April 2017 study Mixed response to multiple bilateral pulmonary lesion Reactive marrow with splenic activity Osseous metastatic disease seen on April 2017 study is sclerotic and FDG negative Mrs Santamaria was admitted to hospital with abdominal pain and diagnosed with diverticulitis treated successfully with antibiotics and during this time, CT scans of chest abdomen pelvis were done on 07/30/2018 . The scans showed extensive pulmonary metastases and hepatic metastases and bone metastases, stable when compared with CT PET scan done in June 2018. She continued with treatment with carboplatin/gemcitabine/Herceptin. Follow-up CT PET scan done on 10/25/2018 showed mild improvement in hepatic, pulmonary and osseous metastatic disease. She has continued with chemotherapy with weekly Carboplatin, gemcitabine and Herceptin. She is receiving Neupogen support on and Saturday after her treatment on Saturday. She was getting the Neupogen at [place], [place]. She tolerated this plan well. She continues to have exertional shortness of breath but states it is no worse than what is has been but it is no better either. She denies any angina type pain but thinks she may have palpatations once in a while with the shortness of breath. She denies orthopnea. She denies any cough. She does have a very strong family history of CAD-both parents with her father's first MA in his 30's and both brothers have CAD. She has never had a diagnosis of CAD. She did have an echocardiogram on 11/07/2018 that reported EF of 60%-unchanged from previous echo. She reported she had a bug bite on her right breast reconstruction site around where the nipple should be. She states it presented as a big blister then it popped and then formed a scabbed area but no drainage. She had been applying triple antibotic ointment to it. She was referred to plastic surgery at [facility] and ulimately underwent right breast implant removal in December 2018, as per patient and there was no evidence of breast cancer in the specimen. Her chemotherapy was delayed because of dental procedure from 12/30/2018 to 02/04/2019. She resumed treatment on 02/04/2019. Echocardiogram done on 03/09/2019 showed Ejection fraction was 68%. Mrs Santamaria underwent restaging PET/Ct on 04/21/2019. The PET/CT apparently was not compared to the scan she had on 10/25/2018. A review/comparison and an addended report has been requested. However in the interim we discussed the findings of her April 21, 2019 PET in relation to the October 25, 2018 PET. There were multiple pulmonary nodules present with the largest at the right base posteromedially measuring 4.9 x 2 point centimeters with a maximum SUV of 6.71. The results of that SUV on the October 25, 2018 report is somewhat blurry but looks to be 8.4 possibly 6.4 but indicates that the pulmonary nodules are relatively stable. The maximum SUV in the liver was 3.31 and on the October 2018 scan was 5.1. did compare the reports and felt that Soledad had had some improvement in her overall disease. We of course are waiting for the final review and updated report. These findings have been discussed with Mrs Santamaria she understands that it will be compared with the one in October. She has had persistent right arm numbness and has an appointment with Dr Matthew soto for followup on that. She now has noticed right leg numbness. It comes and goes but seems to be lasting longer when it does come. She has had no TIA symptoms. MRI scan of the head done on 05/07/2019 showed no evidence of brain metastases. Due to hyperintense enhancing 9 x 6 mm intrapituitary lesion in the left aspect of pitiutary. Normal optic chasm. Slight [id number] mass effect on the infundibulum. Consistent with a pituitary adenoma. 10 mm metastatic C2 vertebral body lesions likely previously treated. She has continued with carboplatin, gemcitabine and Herceptin. She is also getting monthly Xgeva. Echocardiogram done on November 07, 2018 showed ejection fraction around 65% and appears unchanged from before Echocardiogram done on September 24, 2019 showed ejection fraction 55 -60% CT PET scan done on October 14, 2019 showed increasing metabolism of existing pulmonary nodules e.g. dominant pulmonary nodule within the medial right lower lobe with SUV of 8.3 compared to 6.7 in April 2019 and medial left lower lobe nodule is 1.4 x 1.3 cm with SUV 7 compared to 1.1 x 4 cm with SUV of 2.3 but no new lung nodule In abdomen increase in size of dominant cyst within central portion of liver measuring 6.7 x 5.1 with SUV of 8.1 compared to 4.8 by with SUV of 6 there is a new hypermetabolic lesion within the right lower lobe of the liver, size 0.9 cm with maximum SUV 6 increasing hypermetabolic activity in the existing osseous metastasis without new lesion identified e.g. in the sacrum SUV 6.9 compared to 4.6 previously. Due to the disease progression, Dr. Pitts has recommended further treatment with Enhertu (fam-trastuzumab deruxtecan) an anti-HER2; monoclonal antibody; antineoplastic agent, topoisomerase I inhibitor. She began her first cycle on 11/05/2019. Mrs Santamaria is here today for day 8 followup. She states she is feeling better today. She states she has constipation last week-to the point of impaction . She states she did stool softeners, laxative, enemas and a manual extraction herself. She states she has alot of bleeding with the stool once if finally moved . She denies any recurrent rectal bleeding and states her bowels are now normal. She states she is eating ok and feels better overall today. She states she had some fatigue but she isn't sure if that was due to the bowels or the treatment. She states she did have a red face for about 2 days after treatment and a little nausea-but not bad enough to take anything for it . Both symptoms are now resolved. She denies any fever or chills or any signs of infection for at least the last 72 hours. She denies any known COVID-19 exposure. She denies any COVID-19 symptoms. She denies any personal COVID-19 testing. Her ECOG is 1. Past Medical History: Cancer (breast (left)) in 2008 Past Surgical History: Cholecystectomy Colonoscopy Hysterectomy Nisson wrap Right breast implant removed Tonsillectomy Flu vaccine in 2019 - Given in right deltoid/lc Flucevax in 2018 - right deltoid Portacatheter in 2017 Mastectomy in 2008 - bilateral October of 2015. She had an unknown rupture and repair Allergies: Codeine Sulfate Medications: Claritin 1 Tablet (of 10 mg) Oral daily Magnesium 1 Tablet Oral daily PRN Multivitamin Adults 1 Tablet Oral daily PRN Potassium 1 Tablet (of 99 mg) Oral daily PRN Prevacid 1 Capsule (of 30 mg) Capsule Delayed Release Oral b.i.d. Vitamin C 1 Tablet Oral daily PRN Family History: Ms. Santamaria's mother at age 89: heart attack. Ms. Santamaria's father is alive. Social History: Ms. Santamaria is and she is a disabled. Ms. Santamaria quit smoking 13 years ago but had smoked 1.0 pack/day for 33 years. She has no history of drinking. Ms. Santamaria reports the following support systems: lives with spouse, significant other, family, or friends, lives in own house, supportive family/friends willing to assist with needs, and adequate transportation available for expected visits. Her diet consists of regular meals. She indicates her activity level as: daily activities. Review Of Symptoms: Constitutional Denies fevers, chills, night sweats, or weight loss. Allergic/Immunologic No reactions. Eyes Denies significant visual changes. No diplopia. No amaurosis. ENMT Denies changes in hearing, sore throat, mouth sores, difficulty or changes in swallowing ability, and/or sinus drainage. Endocrine No diabetes, thyroid disease or hormone replacement. Denies hot flashes or night sweats. Hematologic/Lymphatic Denies easy bruising or bleeding. The patient denies any tender or palpable lymph nodes. Breasts No concerns Respiratory dyspnea on exertion-short of breath-stable. Denies chest pain, cough or hemoptysis. Denies orthopnea. Cardiovascular Denies anginal chest pain, palpitations or orthopnea. Gastrointestinal Denies current nausea, vomiting, diarrhea, GI bleeding. She has intermittent constipation but has a regimen that works for her generally but did have worsening constipation last week-see above. Genitourinary (F) No hematuria, hesitancy, incontinence, vaginal bleeding, discharge or other problems with urination. Musculoskeletal Denies joint pain, swelling or redness. No decreased range of motion. Integumentary Denies chronic rashes, inflammation, ulcerations or skin changes. Neurologic Denies headache, blurred vision, and no areas of focal weakness or numbness. Normal gait. No sensory problems. Psychiatric Denies insomnia, depression, estelita or mood swings. Vital Signs: Performed on Nov 12, 2019 13:30 Height - 67.00 in Weight - 146.0 lbs (LOW) BSA - 1.77 sq.m BMI - 22.87 Temperature - 97.4 F (LOW) Pulse - 91 /min Respiration - 24 /min BP - 136/82 mm(hg) O2 Sat - 96 % Pain - 6,1 - No physically strenuous activity, but ambulatory and able to carry out light or sedentary work (e.g. office work, light house work). (ECOG) Physical Examination: Constitutional Alert, oriented, no acute distress. Skin pink, warm and dry. Head Normocephalic; atraumatic. Eyes Conjunctivae and sclerae are clear and without icterus. Pupils are reactive and equal. Neck Supple without masses or thyromegaly. No jugular venous distension. Hematologic/Lymphatic No petechiae or purpura. Respiratory Lungs are diminished bilaterally to auscultation without rhonchi or wheezing. Cardiovascular Regular rate and rhythm of heart without murmurs,clicks, gallops or rubs. Abdomen Non-tender, non-distended, no masses or ascites. Good bowel sounds noted in all quads. No guarding or rebound tenderness. No pulsatile masses. Back/Spine Non-tender to palpation. Extremities No visible deformities, no cyanosis, clubbing or edema. Musculoskeletal No tenderness or swelling, normal range of motion without obvious weakness. Integumentary No rashes or lesions. Neurologic No sensory or motor deficits, normal cerebellar function, normal gait. Psychiatric Alert and oriented times three. Coherent speech. Verbalizes understanding of our discussions today. Laboratory:Test performed on Nov 11, 2019 08:21 Glucose 113 mg/dL BUN 19 mg/dL Creatinine 0.8 mg/dL Cr Clearance (Est) 76.28 mL/min Sodium 134 mmol/L Potassium 3.7 mmol/L Chloride 96 mmol/L CO2 24 mmol/L Calcium 8.6 mg/dL Protein, Total 7.3 g/dL Albumin 4.0 g/dL Globulin 3.3 g/dL Bilirubin, Total 0.9 mg/dL Alkaline Phosphatase 462 IU/L AST (SGOT) 80 IU/L ALT (SGPT) 77 IU/L WBC 7.0 10^9/L RBC 3.68 10^12/L HGB 12.1 g/dL HCT 38.8 % MCV 105.4 fl MCH 32.9 pg MCHC 31.2 g/dL RDW 15.2 % Platelet Count 161 10^9/L MPV 11.0 fL Neutrophils (Gran) 5.29 10^9/L Lymphocytes 1.2 10^9/L Monocytes 0.2 10^9/L Eosinophils 0.3 10^9/L Basophils 0.0 10^9/L Manual Lymphocytes 16.6 % Manual Monocytes 2.3 % Manual Eosinophils 4.4 % Manual Basophils 0.4 % Impression: History of left breast cancer with metastases to left scapula status post bilateral mastectomy and left axillary lymph node dissection followed by radiation therapy to left chest wall and axilla in 2008 in [facility] in [facility] status post 1 year of Herceptin and paclitaxel and Arimidex for some time status post radiation therapy to left scapula biopsy-proven metastases Medical record obtained from [facility] [place], [place] and ER/MS positive HER-2/oneida overexpression positive it shows #1 presentation with abnormal screening mammogram in 2010. Patient underwent neoadjuvant chemotherapy with weekly paclitaxel and Herceptin for 12 cycle from May Treated with neoadjuvant chemotherapy FEC plus Herceptin from August 2010 through October 2010 In November 2010 she undergoes bilateral simple mastectomy with pathology demonstrating pT2 N2 disease Mrs Santamaria completed 1 year of adjuvant Herceptin therapy with adjuvant aromatase inhibitor In October 2011 patient transitioned to single agent tamoxifen due to poor tolerance of aromatase inhibitor therapy In October 2012 patient presented with left scapular pain imaging demonstrates abnormal bones lesion with biopsy notable for ER/MS positive HER-2/oneida overexpressing breast cancer, staging evaluation demonstrated bilateral pulmonary nodules with mediastinal lymphadenopathy On 12/16/2012 patient initiates letrozole plus Herceptin plus PERJETA on clinical trial On 02/22/2015 patient demonstrates subjective progression of disease within lungs On 02/25/2015 initiated on KADCYLA History of metastatic disease status post chemotherapy with different agents on multiple occasions most recent hormonal agent was letrozole 2.5 mg Elevated tumor [place] [address] scan of chest abdomen pelvis done on 10/10/2016 showed multiple bilateral pulmonary nodules consistent with metastatic disease multiple lytic lesion including posterior aspect of T12 vertebral body related dissection of much of right side of T10 vertebra and a large lytic lesion involving the roof of the right acetabulum and right iliac wing and focus of due to dissection lesion in right ischium Stable tiny low-attenuation abnormalities within the liver most likely consistent with multiple tiny cysts Pulmonary emphysema 8 ON 09/24/2016 CA 15.3 342.6 CA 27- 29 493.59 Upper mid back pain and right hip pain due to bone metastases questionable cord compression. She did have restaging with PET/CT on 11/03/2016. The PET/CT revealed multiple FGD avid osteolytic metastases in the left scapula, posterior left 9th rib, T10, T12 and the anterior right acetabulum. Multiple FDG avid metastatic pulmonary nodules represented by 1.9 cm nodule in the posterbasal segment of the right lower lobe with an SUV of 5 and a 1.7 cm nodule in the anterrobasal segment of the left lower lobe with an SUV of 5.1. No hepatic or adrenal metastases identified. Mrs Santamaria was referred to [facility] and underwent radiation to the right hip, left scapula, T10-T12 spine. Her pain resolved with the radiation. offered her palliative chemotherapy with Navelbine and Herceptin. She has agreed to a trial of the chemotherapy. CT scan of the chest August 2017 reported disease progression in the chest and evidence of possible hepatic involvement as well as possible metastatic site involving the left 12th rib. PET/CT scan done on 03/02/2017 showed multiple FDG avid metastatic pulmonary nodules represented by 1.9 cm nodule in the posterior basal segment of right lower lobe with SUV 9.6 compared to 5 on prior exam and a 1.7 cm nodule in the anterior basal segment of left lower lobe with SUV of 4.9 compared to 4.1 on prior exam. There were multiple new hepatic metastatic lesions represented by 1.7 cm nodule with SUV of 5.4 in the anterior superior segment right upper lobe. The PET/CT also reported bone metastasis the left anterior superior iliac spine posteriorly right sacroiliac and T10 T12 right acetabulum, left scapula and posterior left eighth rib. MRI scan of C-spine done on 02/28/2017 showed metastatic lesion of C2 vertebral body. Additional foci of metastatic disease may involve C6 and T1 vertebral bodies multiple disc bulging and spondylosis at C5/C6 and C6/C7 with mild anterior impingement Episode of rectal bleed/abdominal pain probably due to diverticulitis/diverticular bleed CT scan of chest abdomen pelvis done on 03/31/2017 showed pulmonary metastatic disease with variable size of some of the lesion since 10/30/2016 some lesions are smaller and other are larger hepatic and bone metastatic disease similar to the prior exam CT PET scan done on 04/27/2017 showed osseous lesion in left half of C1, and right T1 transverse process and left T1 pedicle, the L1 vertebral body, and L2 vertebral body shows no changes. However, pelvic metastatic disease has worsened with SUV 8.2 compared to 4.1 previously but she is status post radiation therapy to her pelvic bones., Multifocal hepatic metastatic disease is progressed , with SUV 9.8 compared to 5.4 earlier, bilateral hypermetabolic pulmonary nodules are unchanged and right hilar malignant node demonstrated progression Started on lapatinib and Xeloda on 06/08/2017 then it was placed on hold due to radiation therapy to left hip pain. Left posterior hip pain due to bone metastases status post radiation to right hip. Status post radiation therapy to C-spine could complete 9 out of 12 recommended doses because of severe radiation-induced pharyngitis , finished on 06/25/2017 Status palliative post radiation to hip, finished on 06/26/2007 Tumor marker CA-27-29 gone up to 1346.70 on 08/20/2017 from 896.45 on 07/04/2017 Lapatinib and Xeloda discontinued on 08/26/2017 and her treatment plan changed to weekly Herceptin and Taxane 3 weeks on and 1 week off with followup PET/CT after the third cycle. She had GI issues with Zometa ( an episode of nausea vomiting and abdominal pain) so she refuses to repeat the Zometa. She will be offered Xgeva 120 mg every month instead of the Zometa. She began her first cycle of Abraxane and Herceptin on 10/09/2017.Till 12/17/2017 at that time Abraxane was discontinued because of intolerance and last dose of Herceptin was given on 12/31/2017 and because of progressive weakness and fatigue this was also discontinued Patient was referred to [facility] she was seen by Dr. Ramirez on 03/31/2018, many clinical trials are available but due to transportation and financial reason patient could not consider any of them. So palliative chemotherapy with erbulin /Herceptin or carboplatin/gemcitabine/Herceptin was recommended. She did discontinue letrozole on 04/07/2018 and it was recommended that she start on weekly carboplatin AUC 2/gemcitabine 1000 mg/m2/Herceptin day 1, 8 and 15 every 28 days. Along with monthly Xgeva. She began her first cycle on 04/15/2018 .Follow-up CT PET scan done on 07/05/2018 showed hepatic metastatic disease has improved when compared with CT PET scan done in April 2017 and index lesion in the right hepatic dome has now significant central necrosis. There was a mixed response to multiple lung nodules, a left upper lobe nodules is unchanged in size at 1.6 cm but has SUV 3.8 compared to 5.6 before similar improvement is present in the posterior right lower lobe nodule and left lung base nodules. However there are new lesions in the right middle and medial right lobes, the 2 new lesions in the medial right lobe have SUV of 289 and right middle lobe measures 2.6 cm with SUV of 6.8. Multiple osseous lesion seen previously were sclerotic and FDG negative. Suspicious uptake is identified in left femoral neck and proximal right femur and L2. Mrs Santamaria continues with Carboplatin, gemcitabine and Herceptin and monthly Xgeva. She does require intermittent support with growth factors to keep her blood counts up in order to stay on the treatment plan. Follow-up CT PET scan done on 10/25/2018 showed multiple hepatic lesions are seen on prior studies on 07/05/2018 or minimally improved in size and now with improved SUV. Mild improvement in bilateral lung nodules both in size and SUV. Mild improvement is noted in multifocal osseous metastatic disease. Follow-up echocardiogram done on 11/07/2018 showed ejection fraction around 60%. She continued with weekly Carboplatin/gemcitabine and Herceptin. She has completed 11 full cycles and had restaging imaging on 04/21/2019. She had a PET/CT at [facility] on 04/21/2019. The PET/CT apparently was not compared to the scan she had on 10/25/2018. A review/comparison and an addended report has been requested. However in the interim we discussed the findings of her April 21, 2019 PET in relation to the October 25, 2018 PET. There were multiple pulmonary nodules present with the largest at the right base posteromedially measuring 4.9 x 2 point centimeters with a maximum SUV of 6.71. The results of that SUV on the October 25, 2018 report is somewhat blurry but looks to be 8.4 possibly 6.4 but indicates that the pulmonary nodules are relatively stable. The maximum SUV in the liver was 3.31 and on the October 2018 scan was 5.1. did compare the reports and felt that Soledad had had some improvement in her overall disease. She continued with chemotherapy with carboplatin gemcitabine and Herceptin. As her recent PET scan confirms disease progression she will discontinue her current chemo regimen with Herceptin/carboplatin/gemcitabine and prior approval was requested for Fam Trastuzumab deruxtecan (Enhertu). Dr Pitts had discussed the side effects possible benefits associated with Enhertu including but not limited to allergic reaction, nausea vomiting, fatigue, hair loss,, pneumonitis, neuropathy, bone marrow suppression amongst others. Mrs Santamaria has consented to treatment and we do have approval from insurance. BREAST CANCER TREATMENT HISTORY SUMMARY Paclitaxel Herceptin for 12 cycles from May 2010 to August 2010 [facility]EC and Herceptin through October 2010 Aromatase inhibitor began in October 2010 Bilateral mastectomies November 2010???postmastectomy radiation completed 03/21/2011 Tamoxifen 2013 Clinical trial with Herceptin, Perjeta and letrozole beginning November 2012 through February 2015 Kadcyla began in February 2015 but was stopped after 2-3 doses due to intolerance Radiation to the right hip, left scapula, T10-T12 spine in October 2016. She is also started on lapatinib and Xeloda which continued through August 2017. She had elevation of tumor markers and at that time was switched to Herceptin and Abraxane on 10/09/2017. She stopped the Abraxane after her last dose on 12/17/2017 because of intolerance and Herceptin was then given on 12/31/2017. She was referred to [facility] for possible clinical trials but due to transportation and financial reasons she could not consider any of them. She began palliative chemotherapy with carboplatin gemcitabine and trastuzumab on 04/15/2018. She was also getting monthly Xgeva. She is remained on this regimen until her most recent PET/CT from October 2019 which is show disease progression. She will be transitioned to Enhertu (11/05/2019). Plan: 1. Proceed with cycle 1 Enhertu-this is day 8. 2. We will discuss using Aloxi with cycle 2 as it may have been a factor in her significant constipation but she has had it with her previous treatments without known problems. 3. Supportive care as needed with hydration and antiemetics. 4. Labs from November 11, 2019 were reviewed in detail and discussed with Ms. Santamaria and a copy was given to her. WBC 7.0, hemoglobin 12.1 platelets 161,000 ANC is 5300 creatinine 0.7 her ALT was 129 AST was 167 alk phos was 429. We have elected to pursue treatment and monitor her LFTs for now. 5. We will plan to see her back in 2 week for day 1 of cycle 2 follow-up with CBC CMP, Vitamin D (vitamin D deficiency) and TSH due to fatigue. I have requested in-home labs as she states she did go in for labs last visit and got so weak and shaky she was afraid to drive home. She then had to rest for several hours after she fell he did get home. She states it just wore her out. Her works during lab hours at the hospital and is unavailable to take her. 6. We did discuss known side effects of Enhertu to include but not limited to interstitial lung disease, pneumonitis (cough, dyspnea, fever and increasing shortness of breath) nausea, fatigue, vomiting, alopecia, constipation, decreased appetite, anemia, neutropenia, diarrhea, leukopenia, cough and thrombocytopenia. Mrs. Santamaria is aware to contact us if she has any new symptoms of any kind. 7. Mrs Santamaria was instructed to contact us in the interim should questions or problems arise. Signed By: Liliana Bernstein-, [facility] Fabby Pitts MD <<Signature on File>>
== END 2019-11-18 23:59 | disposition home or self-care (01) ==
LOC: ONCMED 06:19
PROVIDERS: PCP Nurse Practitioner Family; Visit Provider Nurse Practitioner
DX: Z51.12 Encounter for antineoplastic immunotherapy (principal); C50.512 Malignant neoplasm of lower-outer quadrant of left female breast; C79.51 Secondary malignant neoplasm of bone; C78.01 Secondary malignant neoplasm of right lung; C78.02 Secondary malignant neoplasm of left lung; C78.7 Secondary malignant neoplasm of liver and intrahepatic bile duct; J43.9 Emphysema, unspecified; Z17.0 Estrogen receptor positive status [ER+]; Z79.899 Other long term (current) drug therapy; Z87.891 Personal history of nicotine dependence; Z90.13 Acquired absence of bilateral breasts and nipples; Z92.3 Personal history of irradiation
CPT/HCPCS: 96367; 96372; 96413; 99214; J0897; J1100; J2469; J7050; J9358

== ENCOUNTER 2019-12-10 08:47 | Outpatient (RCR) | payer MEDICARE, SELFPAY ==
[2019-11-24 14:01] LABS: Basophils # 0.1 10^3/uL (0.0-0.1); Basophils % 1.3 %; Eosinophils # 0.3 10^3/uL (0.0-0.8); Eosinophils % 7.2 %; Hematocrit 34.1 % (37.0-47.0); Hemoglobin 10.2 g/dL (11.5-15.3); Lymphocytes % 44.7 %; Mean Corpuscular HGB Conc 29.9 g/dL (30.0-36.0); Mean Corpuscular Hemoglobin 32.7 pg (28.0-34.0); Mean Corpuscular Volume 109.3 fL (81-99); Mean Platelet Volume 10.5 fL (7.4-10.4); Monocytes # 0.9 10^3/uL (0.2-0.9); Monocytes % 20.2 %; Neutrophils # 1.14 10^3/uL (1.8-7.7); Neutrophils % 25.7 %; Nucleated Red Blood Cells % 0 %; Platelet Count 274 10^3/cmm (130-400); Red Blood Count 3.12 10^6/uL (4.1-5.3); Red Cell Distribution Width 17.9 % (12.1-15.1); White Blood Count 4.5 10^3/uL (4.0-10.0)
[2019-11-24 14:40] LABS: 25 Hydroxy Vitamin D 37 ng/mL (30-100); Alanine Aminotransferase 32 U/L (0-33); Albumin Level 3.8 g/dL (3.5-5.2); Alkaline Phosphatase 281 IU/L (35-105); Anion Gap 14.3 (5-19); Aspartate Amino Transferase 44 U/L (0-32); Blood Urea Nitrogen 9 mg/dL (8-23); Calcium 9.2 mg/dL (8.5-10.5); Carbon Dioxide 25 mmol/L (22-29); Chloride 102 mmol/L (98-107); Globulin 3.3 g/dL (1.3-4.6); Glucose 63 mg/dL (65-115); Osmolality Calculated 281 mOsm/kg (285-295); Potassium 4.3 mmol/L (3.5-5.1); Sodium 137 mmol/L (136-145); Thyroid Stimulating Hormone 2.23 uIU/mL (0.27-4.20); Total Bilirubin 0.3 mg/dL (0.15-1.2); Total Protein 7.1 g/dL (6.6-8.7)
[2019-11-26] MEDS: sodium chloride 0.9% 250 ML 999 ML IV (14:55)
--- NOTE | 2019-11-26 15:52 | ONC FU_ITS ---
Dr. Pitts follow up note Patient: Soledad Santamaria Unit #: [id number]: 1955 Dicatated By: Kortney Pitts M.D.Date of Visit:Nov 26, 2019 Onc Med Follow-up/Prog Note History of Present Illness: Mrs. Santamaria is a 64-year-old female with history of left breast carcinoma with bone metastasis. She presented with an abnormal mammogram in 2010. She had apparently had detected an left-sided breast mass in late 2009. She was referred to Dr Gadiel Reed @ [facility] in [place], [place]. In April 2010, she underwent needle core biopsy of the left breast that did confirm invasive ductal carcinoma histological grade 2/3, ER+ TX+ and Her 2 [place] immunostain was 3+. She also had biopsy of a left axillary lymph node that was positive for invasive carcinoma with no lymphoid tissue identified. Her exam prior to chemo revealed a 3 cm mass in the extreme upper outer aspect of the left breast and multiple palpable enlarged lymph nodes-the largest was 2 cm and mobile.. Further workup included a breast MRI which did show biopsy proven malignancy in the left upper outer quadrant measuring 3.3 cm with associated axillary and subpectoral adenopathy. She had multiple satellite nodes with the largest measuring 7 cm. She did undergo MRI guided biopsy on June 08, 2010, which did report invasive cancer. She did have CT of the chest and a bone scan which did not show distant disease,. However, there was an enlarged lymph node in the subcutaneous tissues posterior to the left scapula and was biopsied on May 26, 2010 and was negative for malignancy. She under went neoadjuvant chemotherapy with weekly paclitaxel and Herceptin for 12 cycles from May 2010 to August of 2010 followed by FEC and Herceptin through October 2010. She completed 1 year of Herceptin in May 2011 during which time she was also taking an AI. She did have febrile neutropenia requiring admission in September 2010. She underwent bilateral mastectomies( for abnormal mammogram findings in the right breast) at [facility] in [facility] in November 2010. She did have post mastectomy radiation completed on 03/21/2011. She then underwent reconstruction with bilateral breast implants. Unfortunately in November 2011, the left implant became infected and had to be removed. During work up of the implant abnormality she has found to have a metastatic lesion in her left scapula. She did not have any problems until November of 2012 at which time she was having generalized bone pain, which she thought was a combination of Actonel and Anastrozole. The pain did not improve with stopping these medications. She was transitioned to single agent Tamoxifen. A bone scan revealed increased activity along the lateral margin of the left scapula suspicious of osseous metastatic disease when compared to the bone scan from November 2011. This lesion was biopsied on 12/01/2012 and revealed metastatic disease consistent with the breast primary. She did not have radiation at that time as she was not having significant pain. Mrs Santamaria was restaged and found to have diffuse pulmonary nodules and mediastinal lymphadenopathy and in November 2012, she was enrolled in a clinical trial with Herceptin. Perjeta and Letrozole. She had restaging in March 2014 that revealed slight progression of her pulmonary nodules which did not meet criteria for end point results of the clinical trial and was taken off the trial. Her bone scan was reported as stable. She transferred her care to [facility] in [place], [place] to the care of Dr Mehran Jacobson III in May 2014 due to the difficulty traveling to [facility]. The treatment of letrozole, Herceptin and Perjeta was continued until she disease progression and was changed to Kadcyla in February 2015 after restaging imaging revealed disease progression.And she could not tolerate and it was discontinued after 2 or 3 doses. INTERIM HISTORY: Mrs Santamaria was referred to us in October 2016 for followup at which time, Mrs Santamaria was having right upper back pain, left chest wall pain and right groin pain. She did have restaging with PET/CT on 11/03/2016. The PET/CT revealed multiple FGD avid osteolytic metastases in the left scapula, posterior left 9th rib, T10, T12 and the anterior right acetabulum. Multiple FDG avid metastatic pulmonary nodules represented by 1.9 cm nodule in the posterbasal segment of the right lower lobe with an SUV of 5 and a 1.7 cm nodule in the anterrobasal segment of the left lower lobe with an SUV of 5.1. No hepatic or adrenal metastases identified. Mrs Santamaria was referred to [facility] radiation oncology and underwent radiation to the right hip, left scapula, T10-T12 spine. Her pain resolved with the radiation, offered her palliative chemotherapy with Navelbine and Herceptin. She had agreed to a trial of the chemotherapy. Follow-up CT PET scan showed disease progression chemotherapy was discontinued and she was referred to radiation oncology for palliative radiation therapy. After this cycle of radiation therapy, she was started on lapatinib and Xeloda. She was tolerating it well but she was referred to radiation for C-spine metastases management. At that time her chemotherapy was put on hold. She developed right hip pain for which she received palliative radiation therapy to the 06/25/2017. The lapatinib and Xeloda was restarted but her follow-up tumor markers showed evidence of disease progression as the CA-27-29 gone up to 1346.70 on 08/20/2017 compared to 896.45 on 07/04/2017. Her chemotherapy with Xeloda and lapatinib was discontinued and decided to switch her to weekly Herceptin and Taxane , patient doesn't want take steroids so we recommended Herceptin and Abraxane combination. She did develop nausea vomiting abdominal pain with her last dose of Zometa and doesn't want to take Zometa anymore. We will switch her to Xgeva. There was delay in getting started with the Herceptin/Abraxane. She apparently had positive TB test which required workup and eventually was found to be a false positive. She began her first cycle of Herceptin and Abraxane on 10/09/2017.Last dose of Abraxane/Herceptin was given on 12/17/2017 and because of intolerance Abraxane was discontinued and last dose of Herceptin was given on 12/31/2017 Mrs Santamaria was seen by Dr. Ramirez, oncologist at [facility], for clinical trial and many clinical trials available but due to transportation and financial reasons, patient could not consider any of them. Palliative chemotherapy with carboplatin/gemcitabine/Herceptin or eribulin /Herceptin was recommended. Patient had bone scan and CT scan of chest abdomen done at [facility] which showed widespread metastatic disease. She began chemotherapy with weekly carboplatin, gemcitabine and trastuzumab on 04/15/2018 Follow-up CT PET scan done on 07/05/2018 showed improvement in hepatic metastatic disease since April 2017 study Mixed response to multiple bilateral pulmonary lesion Reactive marrow with splenic activity Osseous metastatic disease seen on April 2017 study is sclerotic and FDG negative Mrs Santamaria was admitted to hospital with abdominal pain and diagnosed with diverticulitis treated successfully with antibiotics and during this time, CT scans of chest abdomen pelvis were done on 07/30/2018 . The scans showed extensive pulmonary metastases and hepatic metastases and bone metastases, stable when compared with CT PET scan done in June 2018. She continued with treatment with carboplatin/gemcitabine/Herceptin. Follow-up CT PET scan done on 10/25/2018 showed mild improvement in hepatic, pulmonary and osseous metastatic disease. She has continued with chemotherapy with weekly Carboplatin, gemcitabine and Herceptin. She is receiving Neupogen support on and Saturday after her treatment on Saturday. She was getting the Neupogen at [place], [place]. She tolerated this plan well. She continues to have exertional shortness of breath but states it is no worse than what is has been but it is no better either. She denies any angina type pain but thinks she may have palpatations once in a while with the shortness of breath. She denies orthopnea. She denies any cough. She does have a very strong family history of CAD-both parents with her father's first NC in his 30's and both brothers have CAD. She has never had a diagnosis of CAD. She did have an echocardiogram on 11/07/2018 that reported EF of 60%-unchanged from previous echo. She reported she had a bug bite on her right breast reconstruction site around where the nipple should be. She states it presented as a big blister then it popped and then formed a scabbed area but no drainage. She had been applying triple antibotic ointment to it. She was referred to plastic surgery at [facility] and ulimately underwent right breast implant removal in December 2018, as per patient and there was no evidence of breast cancer in the specimen. Her chemotherapy was delayed because of dental procedure from 12/30/2018 to 02/04/2019. She resumed treatment on 02/04/2019. Echocardiogram done on 03/09/2019 showed Ejection fraction was 68%. Mrs Santamaria underwent restaging PET/Ct on 04/21/2019. The PET/CT apparently was not compared to the scan she had on 10/25/2018. A review/comparison and an addended report has been requested. However in the interim we discussed the findings of her April 21, 2019 PET in relation to the October 25, 2018 PET. There were multiple pulmonary nodules present with the largest at the right base posteromedially measuring 4.9 x 2 point centimeters with a maximum SUV of 6.71. The results of that SUV on the October 25, 2018 report is somewhat blurry but looks to be 8.4 possibly 6.4 but indicates that the pulmonary nodules are relatively stable. The maximum SUV in the liver was 3.31 and on the October 2018 scan was 5.1. did compare the reports and felt that Soledad had had some improvement in her overall disease. We of course are waiting for the final review and updated report. These findings have been discussed with Mrs Santamaria she understands that it will be compared with the one in October. She has had persistent right arm numbness and has an appointment with Dr Matthew soto for followup on that. She now has noticed right leg numbness. It comes and goes but seems to be lasting longer when it does come. She has had no TIA symptoms. MRI scan of the head done on 05/07/2019 showed no evidence of brain metastases. Due to hyperintense enhancing 9 x 6 mm intrapituitary lesion in the left aspect of pitiutary. Normal optic chasm. Slight [id number] mass effect on the infundibulum. Consistent with a pituitary adenoma. 10 mm metastatic C2 vertebral body lesions likely previously treated. She has continued with carboplatin, gemcitabine and Herceptin. She is also getting monthly Xgeva. Echocardiogram done on November 07, 2018 showed ejection fraction around 65% and appears unchanged from before Echocardiogram done on September 24, 2019 showed ejection fraction 55 -60% CT PET scan done on October 14, 2019 showed increasing metabolism of existing pulmonary nodules e.g. dominant pulmonary nodule within the medial right lower lobe with SUV of 8.3 compared to 6.7 in April 2019 and medial left lower lobe nodule is 1.4 x 1.3 cm with SUV 7 compared to 1.1 x 4 cm with SUV of 2.3 but no new lung nodule In abdomen increase in size of dominant cyst within central portion of liver measuring 6.7 x 5.1 with SUV of 8.1 compared to 4.8 by with SUV of 6 there is a new hypermetabolic lesion within the right lower lobe of the liver, size 0.9 cm with maximum SUV 6 increasing hypermetabolic activity in the existing osseous metastasis without new lesion identified e.g. in the sacrum SUV 6.9 compared to 4.6 previously. Due to the disease progression,she was recommended further treatment with Enhertu (fam-trastuzumab deruxtecan) an anti-HER2; monoclonal antibody; antineoplastic agent, topoisomerase I inhibitor. She began her first cycle on 11/05/2019. Came for follow-up, denies any specific complaint today, no nausea vomiting, no fever chills, no diarrhea or constipation, no jaundice, tolerated first dose of enhertu, well Medications: Claritin 1 Tablet (of 10 mg) Oral daily, Magnesium 1 Tablet Oral daily PRN, Multivitamin Adults 1 Tablet Oral daily PRN, Potassium 1 Tablet (of 99 mg) Oral daily PRN, Prevacid 1 Capsule (of 30 mg) Capsule Delayed Release Oral b.i.d., Vitamin C 1 Tablet Oral daily PRN Allergies: Codeine Sulfate Review of Systems: Review of Systems is not available for this patient. Vital Signs: Performed on Nov 26, 2019 14:01 Height - 67.00 in Weight - 145.0 lbs (LOW) BSA - 1.76 sq.m BMI - 22.71 Temperature - 97.3 F (LOW) Pulse - 80 /min Respiration - 18 /min BP - 121/64 mm(hg) O2 Sat - 97 % Pain - 2 Performance Status: 1 - No physically strenuous activity, but ambulatory and able to carry out light or sedentary work (e.g. office work, light house work). (ECOG) Physical Examination: Respiratory - Lungs are clear to auscultation, Cardiovascular - Regular rate and rhythm of heart, Gastrointestinal - Soft, bowel sounds present, Extremities - No visible edema or rash. Lab/Imaging: Test performed on Nov 11, 2019 08:21 Glucose 113 mg/dL BUN 19 mg/dL Creatinine 0.8 mg/dL Cr Clearance (Est) 76.28 mL/min Sodium 134 mmol/L Potassium 3.7 mmol/L Chloride 96 mmol/L CO2 24 mmol/L Calcium 8.6 mg/dL Protein, Total 7.3 g/dL Albumin 4.0 g/dL Globulin 3.3 g/dL Bilirubin, Total 0.9 mg/dL Alkaline Phosphatase 462 IU/L AST (SGOT) 80 IU/L ALT (SGPT) 77 IU/L WBC 7.0 10^9/L RBC 3.68 10^12/L HGB 12.1 g/dL HCT 38.8 % MCV 105.4 fl MCH 32.9 pg MCHC 31.2 g/dL RDW 15.2 % Platelet Count 161 10^9/L MPV 11.0 fL Neutrophils (Gran) 5.29 10^9/L Lymphocytes 1.2 10^9/L Monocytes 0.2 10^9/L Eosinophils 0.3 10^9/L Basophils 0.0 10^9/L Manual Lymphocytes 16.6 % Manual Monocytes 2.3 % Manual Eosinophils 4.4 % Manual Basophils 0.4 % Test performed on Aug 28, 2019 10:55 TSH 3.28 uIU/mL Anion Gap 17.5 eGFR 101.3 mL/min Neutrophil % 52.4 % Lymphocyte % 26.4 % Monocyte % 15.7 % Eosinophil % 4.3 % Basophils % 0.7 % NRBC % 0 % Test performed on Jul 31, 2019 08:00 Magnesium 2.1 mg/dL Test performed on July 17, 2019 10:00 Ferritin 524 ng/mL Iron 94 mcg/dL Vitamin B12 853 pg/mL Iron Binding Capacity (TIBC) 316 mcg/dl % Iron Saturation 29.7 % UIBC 222 mcg/dL Impression: History of left breast cancer with metastases to left scapula status post bilateral mastectomy and left axillary lymph node dissection followed by radiation therapy to left chest wall and axilla in 2008 in [facility] in [facility] status post 1 year of Herceptin and paclitaxel and Arimidex for some time status post radiation therapy to left scapula biopsy-proven metastases Medical record obtained from [facility] [place], [place] and ER/TX positive HER-2/oneida overexpression positive it shows #1 presentation with abnormal screening mammogram in 2010. Patient underwent neoadjuvant chemotherapy with weekly paclitaxel and Herceptin for 12 cycle from May Treated with neoadjuvant chemotherapy FEC plus Herceptin from August 2010 through October 2010 In November 2010 she undergoes bilateral simple mastectomy with pathology demonstrating pT2 N2 disease Mrs Santamaria completed 1 year of adjuvant Herceptin therapy with adjuvant aromatase inhibitor In October 2011 patient transitioned to single agent tamoxifen due to poor tolerance of aromatase inhibitor therapy In October 2012 patient presented with left scapular pain imaging demonstrates abnormal bones lesion with biopsy notable for ER/TX positive HER-2/oneida overexpressing breast cancer, staging evaluation demonstrated bilateral pulmonary nodules with mediastinal lymphadenopathy On 12/16/2012 patient initiates letrozole plus Herceptin plus PERJETA on clinical trial On 02/22/2015 patient demonstrates subjective progression of disease within lungs On 02/25/2015 initiated on KADCYLA History of metastatic disease status post chemotherapy with different agents on multiple occasions most recent hormonal agent was letrozole 2.5 mg Elevated tumor markers [place] [address] scan of chest abdomen pelvis done on 10/10/2016 showed multiple bilateral pulmonary nodules consistent with metastatic disease multiple lytic lesion including posterior aspect of T12 vertebral body related dissection of much of right side of T10 vertebra and a large lytic lesion involving the roof of the right acetabulum and right iliac wing and focus of due to dissection lesion in right ischium Stable tiny low-attenuation abnormalities within the liver most likely consistent with multiple tiny cysts Pulmonary emphysema 8 ON 09/24/2016 CA 15.3 342.6 CA 27- 29 493.59 Upper mid back pain and right hip pain due to bone metastases questionable cord compression. She did have restaging with PET/CT on 11/03/2016. The PET/CT revealed multiple FGD avid osteolytic metastases in the left scapula, posterior left 9th rib, T10, T12 and the anterior right acetabulum. Multiple FDG avid metastatic pulmonary nodules represented by 1.9 cm nodule in the posterbasal segment of the right lower lobe with an SUV of 5 and a 1.7 cm nodule in the anterrobasal segment of the left lower lobe with an SUV of 5.1. No hepatic or adrenal metastases identified. Mrs Santamaria was referred to [facility] radiation oncology and underwent radiation to the right hip, left scapula, T10-T12 spine. Her pain resolved with the radiation. offered her palliative chemotherapy with Navelbine and Herceptin. She has agreed to a trial of the chemotherapy. CT scan of the chest August 2017 reported disease progression in the chest and evidence of possible hepatic involvement as well as possible metastatic site involving the left 12th rib. PET/CT scan done on 03/02/2017 showed multiple FDG avid metastatic pulmonary nodules represented by 1.9 cm nodule in the posterior basal segment of right lower lobe with SUV 9.6 compared to 5 on prior exam and a 1.7 cm nodule in the anterior basal segment of left lower lobe with SUV of 4.9 compared to 4.1 on prior exam. There were multiple new hepatic metastatic lesions represented by 1.7 cm nodule with SUV of 5.4 in the anterior superior segment right upper lobe. The PET/CT also reported bone metastasis the left anterior superior iliac spine posteriorly right sacroiliac and T10 T12 right acetabulum, left scapula and posterior left eighth rib. MRI scan of C-spine done on 02/28/2017 showed metastatic lesion of C2 vertebral body. Additional foci of metastatic disease may involve C6 and T1 vertebral bodies multiple disc bulging and spondylosis at C5/C6 and C6/C7 with mild anterior impingement Episode of rectal bleed/abdominal pain probably due to diverticulitis/diverticular bleed CT scan of chest abdomen pelvis done on 03/31/2017 showed pulmonary metastatic disease with variable size of some of the lesion since 10/30/2016 some lesions are smaller and other are larger hepatic and bone metastatic disease similar to the prior exam CT PET scan done on 04/27/2017 showed osseous lesion in left half of C1, and right T1 transverse process and left T1 pedicle, the L1 vertebral body, and L2 vertebral body shows no changes. However, pelvic metastatic disease has worsened with SUV 8.2 compared to 4.1 previously but she is status post radiation therapy to her pelvic bones., Multifocal hepatic metastatic disease is progressed , with SUV 9.8 compared to 5.4 earlier, bilateral hypermetabolic pulmonary nodules are unchanged and right hilar malignant node demonstrated progression Started on lapatinib and Xeloda on 06/08/2017 then it was placed on hold due to radiation therapy to left hip pain. Left posterior hip pain due to bone metastases status post radiation to right hip. Status post radiation therapy to C-spine could complete 9 out of 12 recommended doses because of severe radiation-induced pharyngitis , finished on 06/25/2017 Status palliative post radiation to hip, finished on 06/26/2007 Tumor marker CA-27-29 gone up to 1346.70 on 08/20/2017 from 896.45 on 07/04/2017 Lapatinib and Xeloda discontinued on 08/26/2017 and her treatment plan changed to weekly Herceptin and Taxane 3 weeks on and 1 week off with followup PET/CT after the third cycle. She had GI issues with Zometa ( an episode of nausea vomiting and abdominal pain) so she refuses to repeat the Zometa. She will be offered Xgeva 120 mg every month instead of the Zometa. She began her first cycle of Abraxane and Herceptin on 10/09/2017.Till 12/17/2017 at that time Abraxane was discontinued because of intolerance and last dose of Herceptin was given on 12/31/2017 and because of progressive weakness and fatigue this was also discontinued Patient was referred to [facility] she was seen by Dr. Ramirez on 03/31/2018, many clinical trials are available but due to transportation and financial reason patient could not consider any of them. So palliative chemotherapy with erbulin /Herceptin or carboplatin/gemcitabine/Herceptin was recommended. She did discontinue letrozole on 04/07/2018 and it was recommended that she start on weekly carboplatin AUC 2/gemcitabine 1000 mg/m2/Herceptin day 1, 8 and 15 every 28 days. Along with monthly Xgeva. She began her first cycle on 04/15/2018 .Follow-up CT PET scan done on 07/05/2018 showed hepatic metastatic disease has improved when compared with CT PET scan done in April 2017 and index lesion in the right hepatic dome has now significant central necrosis. There was a mixed response to multiple lung nodules, a left upper lobe nodules is unchanged in size at 1.6 cm but has SUV 3.8 compared to 5.6 before similar improvement is present in the posterior right lower lobe nodule and left lung base nodules. However there are new lesions in the right middle and medial right lobes, the 2 new lesions in the medial right lobe have SUV of 289 and right middle lobe measures 2.6 cm with SUV of 6.8. Multiple osseous lesion seen previously were sclerotic and FDG negative. Suspicious uptake is identified in left femoral neck and proximal right femur and L2. Mrs Santamaria continues with Carboplatin, gemcitabine and Herceptin and monthly Xgeva. She does require intermittent support with growth factors to keep her blood counts up in order to stay on the treatment plan. Follow-up CT PET scan done on 10/25/2018 showed multiple hepatic lesions are seen on prior studies on 07/05/2018 or minimally improved in size and now with improved SUV. Mild improvement in bilateral lung nodules both in size and SUV. Mild improvement is noted in multifocal osseous metastatic disease. Follow-up echocardiogram done on 11/07/2018 showed ejection fraction around 60%. She continued with weekly Carboplatin/gemcitabine and Herceptin. She has completed 11 full cycles and had restaging imaging on 04/21/2019. She had a PET/CT at [facility] on 04/21/2019. The PET/CT apparently was not compared to the scan she had on 10/25/2018. A review/comparison and an addended report has been requested. However in the interim we discussed the findings of her April 21, 2019 PET in relation to the October 25, 2018 PET. There were multiple pulmonary nodules present with the largest at the right base posteromedially measuring 4.9 x 2 point centimeters with a maximum SUV of 6.71. The results of that SUV on the October 25, 2018 report is somewhat blurry but looks to be 8.4 possibly 6.4 but indicates that the pulmonary nodules are relatively stable. The maximum SUV in the liver was 3.31 and on the October 2018 scan was 5.1. did compare the reports and felt that Soledad had had some improvement in her overall disease. She continued with chemotherapy with carboplatin gemcitabine and Herceptin. As her recent PET scan confirms disease progression she will discontinue her current chemo regimen with Herceptin/carboplatin/gemcitabine and prior approval was requested for Fam Trastuzumab deruxtecan (Enhertu). Dr Pitts had discussed the side effects possible benefits associated with Enhertu including but not limited to allergic reaction, nausea vomiting, fatigue, hair loss,, pneumonitis, neuropathy, bone marrow suppression amongst others. Mrs Santamaria has consented to treatment and we do have approval from insurance. BREAST CANCER TREATMENT HISTORY SUMMARY Paclitaxel Herceptin for 12 cycles from May 2010 to August 2010 FEC and Herceptin through October 2010 Aromatase inhibitor began in October 2010 Bilateral mastectomies November 2010???postmastectomy radiation completed 03/21/2011 Tamoxifen 2013 Clinical trial with Herceptin, Perjeta and letrozole beginning November 2012 through February 2015 Kadcyla began in February 2015 but was stopped after 2-3 doses due to intolerance Radiation to the right hip, left scapula, T10-T12 spine in October 2016. She is also started on lapatinib and Xeloda which continued through August 2017. She had elevation of tumor markers and at that time was switched to Herceptin and Abraxane on 10/09/2017. She stopped the Abraxane after her last dose on 12/17/2017 because of intolerance and Herceptin was then given on 12/31/2017. She was referred to [facility] for possible clinical trials but due to transportation and financial reasons she could not consider any of them. She began palliative chemotherapy with carboplatin gemcitabine and trastuzumab on 04/15/2018. She was also getting monthly Xgeva. She is remained on this regimen until her most recent PET/CT from October 2019 which is show disease progression. She will be transitioned to Enhertu (11/05/2019). Plan: Discussed with patient regarding her labs white blood count 4.5 hemoglobin 10.2 hematocrit 34.1 platelets 274,000 CMP within normal limit except alk phos 281 and AST 44 compared to 80 on November 11, 2019 and ALT normalized at 32 compared to 77 on November 11, 2019 Clinically, patient is doing well, tolerated first cycle of therapy with Enhertu well. We will proceed with the next dose today and then she will return to clinic in 3 weeks, but patient said she is going to her daughter's wedding on December 17, 2019 in that case we will delay her treatment for 1 week and then she return to clinic on December 24, 2019. In the meantime we will check a CBC CMP in 2 weeks to ensure her blood count recovery prior to her visit to her daughter's wedding. Mild anemia, will continue to monitor. Abnormal LFTs, now improving. Signed By: Kortney Pitts M.D. <<Signature on File>>
[2019-12-10 11:10] LABS: Basophils % 0.4 %; Eosinophils # 0.3 10^3/uL (0.0-0.8); Eosinophils % 6.3 %; Hematocrit 36.1 % (37.0-47.0); Lymphocytes # 2.1 10^3/uL (0.8-4.8); Lymphocytes % 40.2 %; Mean Corpuscular HGB Conc 30.5 g/dL (30.0-36.0); Mean Corpuscular Hemoglobin 33.4 pg (28.0-34.0); Mean Corpuscular Volume 109.7 fL (81-99); Mean Platelet Volume 10.5 fL (7.4-10.4); Monocytes # 0.7 10^3/uL (0.2-0.9); Monocytes % 12.6 %; Neutrophils % 40.1 %; Nucleated Red Blood Cells % 0 %; Platelet Count 271 10^3/cmm (130-400); Red Blood Count 3.29 10^6/uL (4.1-5.3); Red Cell Distribution Width 18.1 % (12.1-15.1); White Blood Count 5.2 10^3/uL (4.0-10.0)
[2019-12-10 11:32] LABS: Alanine Aminotransferase 31 U/L (0-33); Albumin Level 3.8 g/dL (3.5-5.2); Alkaline Phosphatase 248 IU/L (35-105); Anion Gap 13.9 (5-19); Aspartate Amino Transferase 40 U/L (0-32); Blood Urea Nitrogen 7 mg/dL (8-23); Calcium 8.9 mg/dL (8.5-10.5); Carbon Dioxide 25 mmol/L (22-29); Chloride 102 mmol/L (98-107); Globulin 3.5 g/dL (1.3-4.6); Glucose 79 mg/dL (65-115); Osmolality Calculated 281 mOsm/kg (285-295); Potassium 3.9 mmol/L (3.5-5.1); Sodium 137 mmol/L (136-145); Total Bilirubin 0.4 mg/dL (0.15-1.2); Total Protein 7.3 g/dL (6.6-8.7)
== END 2019-12-19 23:59 | disposition home or self-care (01) ==
LOC: ONCMED 08:47
PROVIDERS: Nurse Practitioner; PCP Nurse Practitioner Family; Visit Provider Internal Medicine Hematology & Oncology
DX: Z51.12 Encounter for antineoplastic immunotherapy (principal); C50.512 Malignant neoplasm of lower-outer quadrant of left female breast; C79.51 Secondary malignant neoplasm of bone; C77.3 Secondary and unspecified malignant neoplasm of axilla and upper limb lymph nodes; C78.01 Secondary malignant neoplasm of right lung; C78.02 Secondary malignant neoplasm of left lung; D64.9 Anemia, unspecified; Z17.0 Estrogen receptor positive status [ER+]; Z90.13 Acquired absence of bilateral breasts and nipples; Z92.3 Personal history of irradiation; Z79.899 Other long term (current) drug therapy; Z92.23 Personal history of estrogen therapy
CPT/HCPCS: 36415; 80053; 82306; 84443; 85025; 96367; 96413; 99214; J1100; J2469; J7050; J9358

== ENCOUNTER 2020-01-13 05:41 | Outpatient (RCR) | payer MEDICARE, SELFPAY ==
[2019-12-23 14:03] LABS: Basophils # 0.1 10^3/uL (0.0-0.1); Basophils % 0.7 %; Eosinophils # 0.3 10^3/uL (0.0-0.8); Eosinophils % 4.1 %; Hematocrit 38.3 % (37.0-47.0); Hemoglobin 11.7 g/dL (11.5-15.3); Lymphocytes # 1.9 10^3/uL (0.8-4.8); Lymphocytes % 26.7 %; Mean Corpuscular HGB Conc 30.5 g/dL (30.0-36.0); Mean Corpuscular Hemoglobin 33.6 pg (28.0-34.0); Mean Corpuscular Volume 110.1 fL (81-99); Mean Platelet Volume 9.6 fL (7.4-10.4); Monocytes # 1.1 10^3/uL (0.2-0.9); Monocytes % 15.5 %; Neutrophils # 3.73 10^3/uL (1.8-7.7); Neutrophils % 52.6 %; Nucleated Red Blood Cells % 0 %; Platelet Count 376 10^3/cmm (130-400); Red Blood Count 3.48 10^6/uL (4.1-5.3); Red Cell Distribution Width 18.4 % (12.1-15.1); White Blood Count 7.1 10^3/uL (4.0-10.0)
[2019-12-23 14:15] LABS: Alanine Aminotransferase 24 U/L (0-33); Albumin Level 3.7 g/dL (3.5-5.2); Alkaline Phosphatase 218 IU/L (35-105); Anion Gap 15.4 (5-19); Aspartate Amino Transferase 39 U/L (0-32); Blood Urea Nitrogen 10 mg/dL (8-23); Calcium 9.5 mg/dL (8.5-10.5); Carbon Dioxide 26 mmol/L (22-29); Chloride 103 mmol/L (98-107); Globulin 3.6 g/dL (1.3-4.6); Osmolality Calculated 288 mOsm/kg (285-295); Potassium 3.4 mmol/L (3.5-5.1); Sodium 141 mmol/L (136-145); Total Bilirubin 0.3 mg/dL (0.15-1.2); Total Protein 7.3 g/dL (6.6-8.7)
[2019-12-23 14:27] LABS: Glucose 39 mg/dL (65-115)
--- NOTE | 2019-12-24 14:44 | ONC FU_ITS ---
Dr. Pitts follow up note Patient: Soledad Santamaria Unit #: [id number]: 1955 Dicatated By: Kortney Pitts M.D.Date of Visit:Dec 24, 2019 Onc Med Follow-up/Prog Note History of Present Illness: Mrs. Santamaria is a 64-year-old female with history of left breast carcinoma with bone metastasis. She presented with an abnormal mammogram in 2010. She had apparently had detected an left-sided breast mass in late 2009. She was referred to Dr Gadiel Reed @ [facility] in [place], [place]. In April 2010, she underwent needle core biopsy of the left breast that did confirm invasive ductal carcinoma histological grade 2/3, ER+ IA+ and Her 2 Oneida immunostain was 3+. She also had biopsy of a left axillary lymph node that was positive for invasive carcinoma with no lymphoid tissue identified. Her exam prior to chemo revealed a 3 cm mass in the extreme upper outer aspect of the left breast and multiple palpable enlarged lymph nodes-the largest was 2 cm and mobile.. Further workup included a breast MRI which did show biopsy proven malignancy in the left upper outer quadrant measuring 3.3 cm with associated axillary and subpectoral adenopathy. She had multiple satellite nodes with the largest measuring 7 cm. She did undergo MRI guided biopsy on June 08, 2010, which did report invasive cancer. She did have CT of the chest and a bone scan which did not show distant disease,. However, there was an enlarged lymph node in the subcutaneous tissues posterior to the left scapula and was biopsied on May 26, 2010 and was negative for malignancy. She under went neoadjuvant chemotherapy with weekly paclitaxel and Herceptin for 12 cycles from May 2010 to August of 2010 followed by FEC and Herceptin through October 2010. She completed 1 year of Herceptin in May 2011 during which time she was also taking an AI. She did have febrile neutropenia requiring admission in September 2010. She underwent bilateral mastectomies( for abnormal mammogram findings in the right breast) at [facility] in [facility] in November 2010. She did have post mastectomy radiation completed on 03/21/2011. She then underwent reconstruction with bilateral breast implants. Unfortunately in November 2011, the left implant became infected and had to be removed. During work up of the implant abnormality she has found to have a metastatic lesion in her left scapula. She did not have any problems until November of 2012 at which time she was having generalized bone pain, which she thought was a combination of Actonel and Anastrozole. The pain did not improve with stopping these medications. She was transitioned to single agent Tamoxifen. A bone scan revealed increased activity along the lateral margin of the left scapula suspicious of osseous metastatic disease when compared to the bone scan from November 2011. This lesion was biopsied on 12/01/2012 and revealed metastatic disease consistent with the breast primary. She did not have radiation at that time as she was not having significant pain. Mrs Santamaria was restaged and found to have diffuse pulmonary nodules and mediastinal lymphadenopathy and in November 2012, she was enrolled in a clinical trial with Herceptin. Perjeta and Letrozole. She had restaging in March 2014 that revealed slight progression of her pulmonary nodules which did not meet criteria for end point results of the clinical trial and was taken off the trial. Her bone scan was reported as stable. She transferred her care to [facility] in [place], [place] to the care of Dr Mehran Jacobson III in May 2014 due to the difficulty traveling to [facility]. The treatment of letrozole, Herceptin and Perjeta was continued until she disease progression and was changed to Kadcyla in February 2015 after restaging imaging revealed disease progression.And she could not tolerate and it was discontinued after 2 or 3 doses. INTERIM HISTORY: Mrs Santamaria was referred to us in October 2016 for followup at which time, Mrs Santamaria was having right upper back pain, left chest wall pain and right groin pain. She did have restaging with PET/CT on 11/03/2016. The PET/CT revealed multiple FGD avid osteolytic metastases in the left scapula, posterior left 9th rib, T10, T12 and the anterior right acetabulum. Multiple FDG avid metastatic pulmonary nodules represented by 1.9 cm nodule in the posterbasal segment of the right lower lobe with an SUV of 5 and a 1.7 cm nodule in the anterrobasal segment of the left lower lobe with an SUV of 5.1. No hepatic or adrenal metastases identified. Mrs Santamaria was referred to [facility] radiation oncology and underwent radiation to the right hip, left scapula, T10-T12 spine. Her pain resolved with the radiation, offered her palliative chemotherapy with Navelbine and Herceptin. She had agreed to a trial of the chemotherapy. Follow-up CT PET scan showed disease progression chemotherapy was discontinued and she was referred to radiation oncology for palliative radiation therapy. After this cycle of radiation therapy, she was started on lapatinib and Xeloda. She was tolerating it well but she was referred to radiation for C-spine metastases management. At that time her chemotherapy was put on hold. She developed right hip pain for which she received palliative radiation therapy to the 06/25/2017. The lapatinib and Xeloda was restarted but her follow-up tumor markers showed evidence of disease progression as the CA-27-29 gone up to 1346.70 on 08/20/2017 compared to 896.45 on 07/04/2017. Her chemotherapy with Xeloda and lapatinib was discontinued and decided to switch her to weekly Herceptin and Taxane , patient doesn't want take steroids so we recommended Herceptin and Abraxane combination. She did develop nausea vomiting abdominal pain with her last dose of Zometa and doesn't want to take Zometa anymore. We will switch her to Xgeva. There was delay in getting started with the Herceptin/Abraxane. She apparently had positive TB test which required workup and eventually was found to be a false positive. She began her first cycle of Herceptin and Abraxane on 10/09/2017.Last dose of Abraxane/Herceptin was given on 12/17/2017 and because of intolerance Abraxane was discontinued and last dose of Herceptin was given on 12/31/2017 Mrs Santamaria was seen by Dr. Ramirez, oncologist at [facility], for clinical trial and many clinical trials available but due to transportation and financial reasons, patient could not consider any of them. Palliative chemotherapy with carboplatin/gemcitabine/Herceptin or eribulin /Herceptin was recommended. Patient had bone scan and CT scan of chest abdomen done at [facility] which showed widespread metastatic disease. She began chemotherapy with weekly carboplatin, gemcitabine and trastuzumab on 04/15/2018 Follow-up CT PET scan done on 07/05/2018 showed improvement in hepatic metastatic disease since April 2017 study Mixed response to multiple bilateral pulmonary lesion Reactive marrow with splenic activity Osseous metastatic disease seen on April 2017 study is sclerotic and FDG negative Mrs Santamaria was admitted to hospital with abdominal pain and diagnosed with diverticulitis treated successfully with antibiotics and during this time, CT scans of chest abdomen pelvis were done on 07/30/2018 . The scans showed extensive pulmonary metastases and hepatic metastases and bone metastases, stable when compared with CT PET scan done in June 2018. She continued with treatment with carboplatin/gemcitabine/Herceptin. Follow-up CT PET scan done on 10/25/2018 showed mild improvement in hepatic, pulmonary and osseous metastatic disease. She has continued with chemotherapy with weekly Carboplatin, gemcitabine and Herceptin. She is receiving Neupogen support on and Saturday after her treatment on Saturday. She was getting the Neupogen at [place], [place]. She tolerated this plan well. She continues to have exertional shortness of breath but states it is no worse than what is has been but it is no better either. She denies any angina type pain but thinks she may have palpatations once in a while with the shortness of breath. She denies orthopnea. She denies any cough. She does have a very strong family history of CAD-both parents with her father's first PA in his 30's and both brothers have CAD. She has never had a diagnosis of CAD. She did have an echocardiogram on 11/07/2018 that reported EF of 60%-unchanged from previous echo. She reported she had a bug bite on her right breast reconstruction site around where the nipple should be. She states it presented as a big blister then it popped and then formed a scabbed area but no drainage. She had been applying triple antibotic ointment to it. She was referred to plastic surgery at [facility] and ulimately underwent right breast implant removal in December 2018, as per patient and there was no evidence of breast cancer in the specimen. Her chemotherapy was delayed because of dental procedure from 12/30/2018 to 02/04/2019. She resumed treatment on 02/04/2019. Echocardiogram done on 03/09/2019 showed Ejection fraction was 68%. Mrs Santamaria underwent restaging PET/Ct on 04/21/2019. The PET/CT apparently was not compared to the scan she had on 10/25/2018. A review/comparison and an addended report has been requested. However in the interim we discussed the findings of her April 21, 2019 PET in relation to the October 25, 2018 PET. There were multiple pulmonary nodules present with the largest at the right base posteromedially measuring 4.9 x 2 point centimeters with a maximum SUV of 6.71. The results of that SUV on the October 25, 2018 report is somewhat blurry but looks to be 8.4 possibly 6.4 but indicates that the pulmonary nodules are relatively stable. The maximum SUV in the liver was 3.31 and on the October 2018 scan was 5.1. did compare the reports and felt that Soledad had had some improvement in her overall disease. We of course are waiting for the final review and updated report. These findings have been discussed with Mrs Santamaria she understands that it will be compared with the one in October. She has had persistent right arm numbness and has an appointment with Dr Matthew soto for followup on that. She now has noticed right leg numbness. It comes and goes but seems to be lasting longer when it does come. She has had no TIA symptoms. MRI scan of the head done on 05/07/2019 showed no evidence of brain metastases. Due to hyperintense enhancing 9 x 6 mm intrapituitary lesion in the left aspect of pitiutary. Normal optic chasm. Slight [id number] mass effect on the infundibulum. Consistent with a pituitary adenoma. 10 mm metastatic C2 vertebral body lesions likely previously treated. She has continued with carboplatin, gemcitabine and Herceptin. She is also getting monthly Xgeva. Echocardiogram done on November 07, 2018 showed ejection fraction around 65% and appears unchanged from before Echocardiogram done on September 24, 2019 showed ejection fraction 55 -60% CT PET scan done on October 14, 2019 showed increasing metabolism of existing pulmonary nodules e.g. dominant pulmonary nodule within the medial right lower lobe with SUV of 8.3 compared to 6.7 in April 2019 and medial left lower lobe nodule is 1.4 x 1.3 cm with SUV 7 compared to 1.1 x 4 cm with SUV of 2.3 but no new lung nodule In abdomen increase in size of dominant cyst within central portion of liver measuring 6.7 x 5.1 with SUV of 8.1 compared to 4.8 by with SUV of 6 there is a new hypermetabolic lesion within the right lower lobe of the liver, size 0.9 cm with maximum SUV 6 increasing hypermetabolic activity in the existing osseous metastasis without new lesion identified e.g. in the sacrum SUV 6.9 compared to 4.6 previously. Due to the disease progression,she was recommended further treatment with Enhertu (fam-trastuzumab deruxtecan) an anti-HER2; monoclonal antibody; antineoplastic agent, topoisomerase I inhibitor. She began her first cycle on 11/05/2019. Came for follow-up, denies any specific complaints, no fever chills, no nausea or vomiting, no diarrhea constipation, no jaundice, no abdominal pain, no melena or hematochezia, no hemoptysis or hematemesis. tolerated first dose of enhertu, well Medications: Claritin 1 Tablet (of 10 mg) Oral daily, Magnesium 1 Tablet Oral daily PRN, Multivitamin Adults 1 Tablet Oral daily PRN, Potassium 1 Tablet (of 99 mg) Oral daily PRN, Prevacid 1 Capsule (of 30 mg) Capsule Delayed Release Oral b.i.d., Vitamin C 1 Tablet Oral daily PRN Allergies: Codeine Sulfate Review of Systems: Constitutional - Appetite is fair, weight is stable. Energy level is fair. Positive for chills. No fever, night sweats or hot flashes, ENMT - No sinus congestion/drainage. No mouth sores. No sore throat or difficulty swallowing, Hematologic/Lymphatic - No abnormal bruising or bleeding, Respiratory - Positive for occasional shortness of breath, Cardiovascular - No anginal chest pain, palpitations or orthopnea, Gastrointestinal - No nausea, vomiting, GI bleeding, or constipation. No change in bowel habits, no heartburn or early satiety. Positive for diarrhea, Genitourinary (F) - No hematuria, dysuria, increased frequency, urgency, hesitancy or incontinence, Musculoskeletal - Positive for occasional back pain, Neurologic - No dizziness, Psychiatric - No anxiety or depression. Occasional insomnia. Vital Signs: Performed on Dec 24, 2019 14:06 Height - 67.00 in Weight - 144.6 lbs (LOW) BSA - 1.76 sq.m BMI - 22.65 Temperature - 98.2 F (LOW) Pulse - 92 /min Respiration - 24 /min BP - 118/62 mm(hg) O2 Sat - 94 % (LOW) Pain - 0 Performance Status: 0 - Fully active, able to carry on all predisease activities without restrictions. (ECOG) Physical Examination: Respiratory - Lungs are clear to auscultation, Cardiovascular - Regular rate and rhythm of heart, Gastrointestinal - Soft, bowel sounds present, Extremities - No visible edema. Lab/Imaging: Test performed on Dec 23, 2019 09:40 Sodium 141 mmol/L Potassium 3.4 mmol/L Chloride 103 mmol/L CO2 26 mmol/L Anion Gap 15.4 BUN 10 mg/dL Creatinine 0.6 mg/dL Cr Clearance (Est) 101.7100 mL/min eGFR 101.0 mL/min Glucose 39 mg/dL Osmolality - Calculated 288 mOsm/kg Calcium 9.5 mg/dL Protein, Total 7.3 g/dL Albumin 3.7 g/dL Globulin 3.6 g/dL Bilirubin, Total 0.3 mg/dL ALT (SGPT) 24 U/L AST (SGOT) 39 U/L Alkaline Phosphatase 218 IU/L WBC 7.1 10 3/uL RBC 3.48 10 6/uL HGB 11.7 g/dL HCT 38.3 % MCV 110.1 fL MCH 33.6 pg MCHC 30.5 g/dL RDW 18.4 % Platelet Count 376 10 3/cmm MPV 9.6 fL Neutrophils 3.73 10 3/uL Lymphocytes 1.9 10 3/uL Monocytes 1.1 10 3/uL Eosinophils 0.3 10 3/uL Basophils 0.1 10 3/uL Neutrophil % 52.6 % Lymphocyte % 26.7 % Monocyte % 15.5 % Eosinophil % 4.1 % Basophils % 0.7 % NRBC % 0 % Test performed on Nov 11, 2019 08:21 Manual Lymphocytes 16.6 % Manual Monocytes 2.3 % Manual Eosinophils 4.4 % Manual Basophils 0.4 % Test performed on Aug 28, 2019 10:55 TSH 3.28 uIU/mL Test performed on Jul 31, 2019 08:00 Magnesium 2.1 mg/dL Test performed on July 17, 2019 10:00 Ferritin 524 ng/mL Iron 94 mcg/dL Vitamin B12 853 pg/mL Iron Binding Capacity (TIBC) 316 mcg/dl % Iron Saturation 29.7 % UIBC 222 mcg/dL Impression: History of left breast cancer with metastases to left scapula status post bilateral mastectomy and left axillary lymph node dissection followed by radiation therapy to left chest wall and axilla in 2008 in [facility] in [facility] status post 1 year of Herceptin and paclitaxel and Arimidex for some time status post radiation therapy to left scapula biopsy-proven metastases Medical record obtained from [facility] [place], [place] and ER/IA positive HER-2/oneida overexpression positive it shows #1 presentation with abnormal screening mammogram in 2010. Patient underwent neoadjuvant chemotherapy with weekly paclitaxel and Herceptin for 12 cycle from May Treated with neoadjuvant chemotherapy FEC plus Herceptin from August 2010 through October 2010 In November 2010 she undergoes bilateral simple mastectomy with pathology demonstrating pT2 N2 disease Mrs Santamaria completed 1 year of adjuvant Herceptin therapy with adjuvant aromatase inhibitor In October 2011 patient transitioned to single agent tamoxifen due to poor tolerance of aromatase inhibitor therapy In October 2012 patient presented with left scapular pain imaging demonstrates abnormal bones lesion with biopsy notable for ER/IA positive HER-2/oneida overexpressing breast cancer, staging evaluation demonstrated bilateral pulmonary nodules with mediastinal lymphadenopathy On 12/16/2012 patient initiates letrozole plus Herceptin plus PERJETA on clinical trial On 02/22/2015 patient demonstrates subjective progression of disease within lungs On 02/25/2015 initiated on KADCYLA History of metastatic disease status post chemotherapy with different agents on multiple occasions most recent hormonal agent was letrozole 2.5 mg Elevated tumor markers [place] [address] scan of chest abdomen pelvis done on 10/10/2016 showed multiple bilateral pulmonary nodules consistent with metastatic disease multiple lytic lesion including posterior aspect of T12 vertebral body related dissection of much of right side of T10 vertebra and a large lytic lesion involving the roof of the right acetabulum and right iliac wing and focus of due to dissection lesion in right ischium Stable tiny low-attenuation abnormalities within the liver most likely consistent with multiple tiny cysts Pulmonary emphysema 8 ON 09/24/2016 CA 15.3 342.6 CA 27- 29 493.59 Upper mid back pain and right hip pain due to bone metastases questionable cord compression. She did have restaging with PET/CT on 11/03/2016. The PET/CT revealed multiple FGD avid osteolytic metastases in the left scapula, posterior left 9th rib, T10, T12 and the anterior right acetabulum. Multiple FDG avid metastatic pulmonary nodules represented by 1.9 cm nodule in the posterbasal segment of the right lower lobe with an SUV of 5 and a 1.7 cm nodule in the anterrobasal segment of the left lower lobe with an SUV of 5.1. No hepatic or adrenal metastases identified. Mrs Santamaria was referred to [facility] radiation oncology and underwent radiation to the right hip, left scapula, T10-T12 spine. Her pain resolved with the radiation. offered her palliative chemotherapy with Navelbine and Herceptin. She has agreed to a trial of the chemotherapy. CT scan of the chest August 2017 reported disease progression in the chest and evidence of possible hepatic involvement as well as possible metastatic site involving the left 12th rib. PET/CT scan done on 03/02/2017 showed multiple FDG avid metastatic pulmonary nodules represented by 1.9 cm nodule in the posterior basal segment of right lower lobe with SUV 9.6 compared to 5 on prior exam and a 1.7 cm nodule in the anterior basal segment of left lower lobe with SUV of 4.9 compared to 4.1 on prior exam. There were multiple new hepatic metastatic lesions represented by 1.7 cm nodule with SUV of 5.4 in the anterior superior segment right upper lobe. The PET/CT also reported bone metastasis the left anterior superior iliac spine posteriorly right sacroiliac and T10 T12 right acetabulum, left scapula and posterior left eighth rib. MRI scan of C-spine done on 02/28/2017 showed metastatic lesion of C2 vertebral body. Additional foci of metastatic disease may involve C6 and T1 vertebral bodies multiple disc bulging and spondylosis at C5/C6 and C6/C7 with mild anterior impingement Episode of rectal bleed/abdominal pain probably due to diverticulitis/diverticular bleed CT scan of chest abdomen pelvis done on 03/31/2017 showed pulmonary metastatic disease with variable size of some of the lesion since 10/30/2016 some lesions are smaller and other are larger hepatic and bone metastatic disease similar to the prior exam CT PET scan done on 04/27/2017 showed osseous lesion in left half of C1, and right T1 transverse process and left T1 pedicle, the L1 vertebral body, and L2 vertebral body shows no changes. However, pelvic metastatic disease has worsened with SUV 8.2 compared to 4.1 previously but she is status post radiation therapy to her pelvic bones., Multifocal hepatic metastatic disease is progressed , with SUV 9.8 compared to 5.4 earlier, bilateral hypermetabolic pulmonary nodules are unchanged and right hilar malignant node demonstrated progression Started on lapatinib and Xeloda on 06/08/2017 then it was placed on hold due to radiation therapy to left hip pain. Left posterior hip pain due to bone metastases status post radiation to right hip. Status post radiation therapy to C-spine could complete 9 out of 12 recommended doses because of severe radiation-induced pharyngitis , finished on 06/25/2017 Status palliative post radiation to hip, finished on 06/26/2007 Tumor marker CA-27-29 gone up to 1346.70 on 08/20/2017 from 896.45 on 07/04/2017 Lapatinib and Xeloda discontinued on 08/26/2017 and her treatment plan changed to weekly Herceptin and Taxane 3 weeks on and 1 week off with followup PET/CT after the third cycle. She had GI issues with Zometa ( an episode of nausea vomiting and abdominal pain) so she refuses to repeat the Zometa. She will be offered Xgeva 120 mg every month instead of the Zometa. She began her first cycle of Abraxane and Herceptin on 10/09/2017.Till 12/17/2017 at that time Abraxane was discontinued because of intolerance and last dose of Herceptin was given on 12/31/2017 and because of progressive weakness and fatigue this was also discontinued Patient was referred to [facility] she was seen by Dr. Ramirez on 03/31/2018, many clinical trials are available but due to transportation and financial reason patient could not consider any of them. So palliative chemotherapy with erbulin /Herceptin or carboplatin/gemcitabine/Herceptin was recommended. She did discontinue letrozole on 04/07/2018 and it was recommended that she start on weekly carboplatin AUC 2/gemcitabine 1000 mg/m2/Herceptin day 1, 8 and 15 every 28 days. Along with monthly Xgeva. She began her first cycle on 04/15/2018 .Follow-up CT PET scan done on 07/05/2018 showed hepatic metastatic disease has improved when compared with CT PET scan done in April 2017 and index lesion in the right hepatic dome has now significant central necrosis. There was a mixed response to multiple lung nodules, a left upper lobe nodules is unchanged in size at 1.6 cm but has SUV 3.8 compared to 5.6 before similar improvement is present in the posterior right lower lobe nodule and left lung base nodules. However there are new lesions in the right middle and medial right lobes, the 2 new lesions in the medial right lobe have SUV of 289 and right middle lobe measures 2.6 cm with SUV of 6.8. Multiple osseous lesion seen previously were sclerotic and FDG negative. Suspicious uptake is identified in left femoral neck and proximal right femur and L2. Mrs Santamaria continues with Carboplatin, gemcitabine and Herceptin and monthly Xgeva. She does require intermittent support with growth factors to keep her blood counts up in order to stay on the treatment plan. Follow-up CT PET scan done on 10/25/2018 showed multiple hepatic lesions are seen on prior studies on 07/05/2018 or minimally improved in size and now with improved SUV. Mild improvement in bilateral lung nodules both in size and SUV. Mild improvement is noted in multifocal osseous metastatic disease. Follow-up echocardiogram done on 11/07/2018 showed ejection fraction around 60%. She continued with weekly Carboplatin/gemcitabine and Herceptin. She has completed 11 full cycles and had restaging imaging on 04/21/2019. She had a PET/CT at [facility] on 04/21/2019. The PET/CT apparently was not compared to the scan she had on 10/25/2018. A review/comparison and an addended report has been requested. However in the interim we discussed the findings of her April 21, 2019 PET in relation to the October 25, 2018 PET. There were multiple pulmonary nodules present with the largest at the right base posteromedially measuring 4.9 x 2 point centimeters with a maximum SUV of 6.71. The results of that SUV on the October 25, 2018 report is somewhat blurry but looks to be 8.4 possibly 6.4 but indicates that the pulmonary nodules are relatively stable. The maximum SUV in the liver was 3.31 and on the October 2018 scan was 5.1. did compare the reports and felt that Soledad had had some improvement in her overall disease. She continued with chemotherapy with carboplatin gemcitabine and Herceptin. As her recent PET scan confirms disease progression she will discontinue her current chemo regimen with Herceptin/carboplatin/gemcitabine and prior approval was requested for Fam Trastuzumab deruxtecan (Enhertu). Dr Pitts had discussed the side effects possible benefits associated with Enhertu including but not limited to allergic reaction, nausea vomiting, fatigue, hair loss,, pneumonitis, neuropathy, bone marrow suppression amongst others. Mrs Santamaria has consented to treatment and we do have approval from insurance. BREAST CANCER TREATMENT HISTORY SUMMARY Paclitaxel Herceptin for 12 cycles from May 2010 to August 2010 [facility] and Herceptin through October 2010 Aromatase inhibitor began in October 2010 Bilateral mastectomies November 2010???postmastectomy radiation completed 03/21/2011 Tamoxifen 2013 Clinical trial with Herceptin, Perjeta and letrozole beginning November 2012 through February 2015 Kadcyla began in February 2015 but was stopped after 2-3 doses due to intolerance Radiation to the right hip, left scapula, T10-T12 spine in October 2016. She is also started on lapatinib and Xeloda which continued through August 2017. She had elevation of tumor markers and at that time was switched to Herceptin and Abraxane on 10/09/2017. She stopped the Abraxane after her last dose on 12/17/2017 because of intolerance and Herceptin was then given on 12/31/2017. She was referred to [facility] for possible clinical trials but due to transportation and financial reasons she could not consider any of them. She began palliative chemotherapy with carboplatin gemcitabine and trastuzumab on 04/15/2018. She was also getting monthly Xgeva. She is remained on this regimen until her most recent PET/CT from October 2019 which is show disease progression. She will be transitioned to Enhertu (11/05/2019). Plan: Discussed with patient regarding her labs white blood count 7.1 hemoglobin 11.7 hematocrit 38.3 platelets 376,000 CMP within normal limit except glucose was 39 and AST 39 and ALT 24 alk phos 218 Clinically, patient is doing well with no new signs symptoms, tolerating Enhertu well, will proceed with next dose today, her chemotherapy was delayed for 1 week because of her daughter's wedding. Patient will return to clinic in 3 weeks with CBC CMP if in a desirable range, for next dose of Enhertu. Mild hypokalemia, patient is on potassium/magnesium supplement. Will monitor potassium level. Abnormal LFTs, now resolved Signed By: Kortney Pitts M.D. <<Signature on File>>
[2019-12-24] MEDS: sodium chloride 0.9% 250 ML 75 ML IV (15:10)
[2020-01-12 14:34] LABS: Basophils # 0.1 10^3/uL (0.0-0.1); Basophils % 1.2 %; Eosinophils # 0.6 10^3/uL (0.0-0.8); Hematocrit 38.9 % (37.0-47.0); Lymphocytes # 1.9 10^3/uL (0.8-4.8); Lymphocytes % 38.2 %; Mean Corpuscular HGB Conc 30.8 g/dL (30.0-36.0); Mean Corpuscular Hemoglobin 33.6 pg (28.0-34.0); Mean Platelet Volume 9.6 fL (7.4-10.4); Monocytes # 0.9 10^3/uL (0.2-0.9); Monocytes % 17.5 %; Neutrophils # 1.52 10^3/uL (1.8-7.7); Neutrophils % 30.9 %; Nucleated Red Blood Cells % 0 %; Platelet Count 391 10^3/cmm (130-400); Red Blood Count 3.57 10^6/uL (4.1-5.3); Red Cell Distribution Width 17.8 % (12.1-15.1); White Blood Count 4.9 10^3/uL (4.0-10.0)
[2020-01-12 14:48] LABS: Alanine Aminotransferase 27 U/L (0-33); Albumin Level 3.9 g/dL (3.5-5.2); Alkaline Phosphatase 253 IU/L (35-105); Anion Gap 13.2 (5-19); Aspartate Amino Transferase 35 U/L (0-32); Blood Urea Nitrogen 8 mg/dL (8-23); Calcium 9.4 mg/dL (8.5-10.5); Carbon Dioxide 29 mmol/L (22-29); Chloride 103 mmol/L (98-107); Globulin 3.5 g/dL (1.3-4.6); Glucose 82 mg/dL (65-115); Osmolality Calculated 291 mOsm/kg (285-295); Potassium 3.2 mmol/L (3.5-5.1); Sodium 142 mmol/L (136-145); Total Bilirubin 0.3 mg/dL (0.15-1.2); Total Protein 7.4 g/dL (6.6-8.7)
[2020-01-13] MEDS: sodium chloride 0.9% 250 ML 999 ML IV (11:40)
[2020-01-13] MEDS: denosumab 120 mg SDV SUBCUT (11:57)
--- NOTE | 2020-01-13 21:55 | ONC FU_ITS ---
Kerri Wolfe Patient Note Patient: Soledad Santamaria Unit #: [id number]: [id number] Dictated By: Liliana BernsteinDate of Visit: Jan 13, 2020 Onc MED Follow-Up/Prog Note Chief Complaint: Metastatic breast cancer History of Present Illness: Mrs. Santamaria is a 64-year-old female with history of left breast carcinoma with bone metastasis. She presented with an abnormal mammogram in 2010. She had apparently had detected an left-sided breast mass in late 2009. She was referred to Dr Gadiel Reed @ [facility] in [place], [place]. In April 2010, she underwent needle core biopsy of the left breast that did confirm invasive ductal carcinoma histological grade 2/3, ER+ AK+ and Her 2 Oneida immunostain was 3+. She also had biopsy of a left axillary lymph node that was positive for invasive carcinoma with no lymphoid tissue identified. Her exam prior to chemo revealed a 3 cm mass in the extreme upper outer aspect of the left breast and multiple palpable enlarged lymph nodes-the largest was 2 cm and mobile.. Further workup included a breast MRI which did show biopsy proven malignancy in the left upper outer quadrant measuring 3.3 cm with associated axillary and subpectoral adenopathy. She had multiple satellite nodes with the largest measuring 7 cm. She did undergo MRI guided biopsy on June 08, 2010, which did report invasive cancer. She did have CT of the chest and a bone scan which did not show distant disease,. However, there was an enlarged lymph node in the subcutaneous tissues posterior to the left scapula and was biopsied on May 26, 2010 and was negative for malignancy. She under went neoadjuvant chemotherapy with weekly paclitaxel and Herceptin for 12 cycles from May 2010 to August of 2010 followed by FEC and Herceptin through October 2010. She completed 1 year of Herceptin in May 2011 during which time she was also taking an AI. She did have febrile neutropenia requiring admission in September 2010. She underwent bilateral mastectomies( for abnormal mammogram findings in the right breast) at [facility] in [facility] in November 2010. She did have post mastectomy radiation completed on 03/21/2011. She then underwent reconstruction with bilateral breast implants. Unfortunately in November 2011, the left implant became infected and had to be removed. During work up of the implant abnormality she has found to have a metastatic lesion in her left scapula. She did not have any problems until November of 2012 at which time she was having generalized bone pain, which she thought was a combination of Actonel and Anastrozole. The pain did not improve with stopping these medications. She was transitioned to single agent Tamoxifen. A bone scan revealed increased activity along the lateral margin of the left scapula suspicious of osseous metastatic disease when compared to the bone scan from November 2011. This lesion was biopsied on 12/01/2012 and revealed metastatic disease consistent with the breast primary. She did not have radiation at that time as she was not having significant pain. Mrs Santamaria was restaged and found to have diffuse pulmonary nodules and mediastinal lymphadenopathy and in November 2012, she was enrolled in a clinical trial with Herceptin. Perjeta and Letrozole. She had restaging in March 2014 that revealed slight progression of her pulmonary nodules which did not meet criteria for end point results of the clinical trial and was taken off the trial. Her bone scan was reported as stable. She transferred her care to [facility] in [place], [place] to the care of Dr Mehran Jacobson III in May 2014 due to the difficulty traveling to [facility]. The treatment of letrozole, Herceptin and Perjeta was continued until she disease progression and was changed to Kadcyla in February 2015 after restaging imaging revealed disease progression.And she could not tolerate and it was discontinued after 2 or 3 doses. INTERIM HISTORY: Mrs Santamaria was referred to us in October 2016 for followup at which time, Mrs Santamaria was having right upper back pain, left chest wall pain and right groin pain. She did have restaging with PET/CT on 11/03/2016. The PET/CT revealed multiple FGD avid osteolytic metastases in the left scapula, posterior left 9th rib, T10, T12 and the anterior right acetabulum. Multiple FDG avid metastatic pulmonary nodules represented by 1.9 cm nodule in the posterbasal segment of the right lower lobe with an SUV of 5 and a 1.7 cm nodule in the anterrobasal segment of the left lower lobe with an SUV of 5.1. No hepatic or adrenal metastases identified. Mrs Santamaria was referred to [facility] radiation oncology and underwent radiation to the right hip, left scapula, T10-T12 spine. Her pain resolved with the radiation, offered her palliative chemotherapy with Navelbine and Herceptin. She had agreed to a trial of the chemotherapy. Follow-up CT PET scan showed disease progression chemotherapy was discontinued and she was referred to radiation oncology for palliative radiation therapy. After this cycle of radiation therapy, she was started on lapatinib and Xeloda. She was tolerating it well but she was referred to radiation for C-spine metastases management. At that time her chemotherapy was put on hold. She developed right hip pain for which she received palliative radiation therapy to the 06/25/2017. The lapatinib and Xeloda was restarted but her follow-up tumor markers showed evidence of disease progression as the CA-27-29 gone up to 1346.70 on 08/20/2017 compared to 896.45 on 07/04/2017. Her chemotherapy with Xeloda and lapatinib was discontinued and decided to switch her to weekly Herceptin and Taxane , patient doesn't want take steroids so we recommended Herceptin and Abraxane combination. She did develop nausea vomiting abdominal pain with her last dose of Zometa and doesn't want to take Zometa anymore. We will switch her to Xgeva. There was delay in getting started with the Herceptin/Abraxane. She apparently had positive TB test which required workup and eventually was found to be a false positive. She began her first cycle of Herceptin and Abraxane on 10/09/2017.Last dose of Abraxane/Herceptin was given on 12/17/2017 and because of intolerance Abraxane was discontinued and last dose of Herceptin was given on 12/31/2017 Mrs Santamaria was seen by Dr. Ramirez, oncologist at [facility], for clinical trial and many clinical trials available but due to transportation and financial reasons, patient could not consider any of them. Palliative chemotherapy with carboplatin/gemcitabine/Herceptin or eribulin /Herceptin was recommended. Patient had bone scan and CT scan of chest abdomen done at [facility] which showed widespread metastatic disease. She began chemotherapy with weekly carboplatin, gemcitabine and trastuzumab on 04/15/2018 Follow-up CT PET scan done on 07/05/2018 showed improvement in hepatic metastatic disease since April 2017 study Mixed response to multiple bilateral pulmonary lesion Reactive marrow with splenic activity Osseous metastatic disease seen on April 2017 study is sclerotic and FDG negative Mrs Santamaria was admitted to hospital with abdominal pain and diagnosed with diverticulitis treated successfully with antibiotics and during this time, CT scans of chest abdomen pelvis were done on 07/30/2018 . The scans showed extensive pulmonary metastases and hepatic metastases and bone metastases, stable when compared with CT PET scan done in June 2018. She continued with treatment with carboplatin/gemcitabine/Herceptin. Follow-up CT PET scan done on 10/25/2018 showed mild improvement in hepatic, pulmonary and osseous metastatic disease. She has continued with chemotherapy with weekly Carboplatin, gemcitabine and Herceptin. She is receiving Neupogen support on and Saturday after her treatment on Saturday. She was getting the Neupogen at [place], [place]. She tolerated this plan well. She continues to have exertional shortness of breath but states it is no worse than what is has been but it is no better either. She denies any angina type pain but thinks she may have palpatations once in a while with the shortness of breath. She denies orthopnea. She denies any cough. She does have a very strong family history of CAD-both parents with her father's first IL in his 30's and both brothers have CAD. She has never had a diagnosis of CAD. She did have an echocardiogram on 11/07/2018 that reported EF of 60%-unchanged from previous echo. She reported she had a bug bite on her right breast reconstruction site around where the nipple should be. She states it presented as a big blister then it popped and then formed a scabbed area but no drainage. She had been applying triple antibotic ointment to it. She was referred to plastic surgery at [facility] and ulimately underwent right breast implant removal in December 2018, as per patient and there was no evidence of breast cancer in the specimen. Her chemotherapy was delayed because of dental procedure from 12/30/2018 to 02/04/2019. She resumed treatment on 02/04/2019. Echocardiogram done on 03/09/2019 showed Ejection fraction was 68%. Mrs Santamaria underwent restaging PET/Ct on 04/21/2019. The PET/CT apparently was not compared to the scan she had on 10/25/2018. A review/comparison and an addended report has been requested. However in the interim we discussed the findings of her April 21, 2019 PET in relation to the October 25, 2018 PET. There were multiple pulmonary nodules present with the largest at the right base posteromedially measuring 4.9 x 2 point centimeters with a maximum SUV of 6.71. The results of that SUV on the October 25, 2018 report is somewhat blurry but looks to be 8.4 possibly 6.4 but indicates that the pulmonary nodules are relatively stable. The maximum SUV in the liver was 3.31 and on the October 2018 scan was 5.1. did compare the reports and felt that Soledad had had some improvement in her overall disease. We of course are waiting for the final review and updated report. These findings have been discussed with Mrs Santamaria she understands that it will be compared with the one in October. She has had persistent right arm numbness and has an appointment with Dr Matthew soto for followup on that. She now has noticed right leg numbness. It comes and goes but seems to be lasting longer when it does come. She has had no TIA symptoms. MRI scan of the head done on 05/07/2019 showed no evidence of brain metastases. Due to hyperintense enhancing 9 x 6 mm intrapituitary lesion in the left aspect of pitiutary. Normal optic chasm. Slight [id number]-ic-[id number] mass effect on the infundibulum. Consistent with a pituitary adenoma. 10 mm metastatic C2 vertebral body lesions likely previously treated. She has continued with carboplatin, gemcitabine and Herceptin. She is also getting monthly Xgeva. Echocardiogram done on November 07, 2018 showed ejection fraction around 65% and appears unchanged from before Echocardiogram done on September 24, 2019 showed ejection fraction 55 -60% CT PET scan done on October 14, 2019 showed increasing metabolism of existing pulmonary nodules e.g. dominant pulmonary nodule within the medial right lower lobe with SUV of 8.3 compared to 6.7 in April 2019 and medial left lower lobe nodule is 1.4 x 1.3 cm with SUV 7 compared to 1.1 x 4 cm with SUV of 2.3 but no new lung nodule In abdomen increase in size of dominant cyst within central portion of liver measuring 6.7 x 5.1 with SUV of 8.1 compared to 4.8 by with SUV of 6 there is a new hypermetabolic lesion within the right lower lobe of the liver, size 0.9 cm with maximum SUV 6 increasing hypermetabolic activity in the existing osseous metastasis without new lesion identified e.g. in the sacrum SUV 6.9 compared to 4.6 previously. Due to the disease progression,she was recommended further treatment with Enhertu (fam-trastuzumab deruxtecan) an anti-HER2; monoclonal antibody; antineoplastic agent, topoisomerase I inhibitor. She began her first cycle on 11/05/2019. Ms. Santamaria is here today for follow-up. She continues to do well overall. She was able to attend her daughter's wedding in [place] and tolerated the trip well. She states she did not get sick while she was there and had a really good time and is very glad that she went. She is very jovial today. She has gotten a new wig and is tolerating it well. She denies any new concerns. She denies any fever or chills. She has had no known Covid symptoms or known exposure however she was concerned because of being at the wedding but states it was outdoors and she is social distance. She denies any new pain. She states she is having some delayed nausea about a week after her treatment. She states it she has not tried any antiemetic support as you states is just not been that bad she does notices that she is just kind of queasy yet. Is not bad and that she has had no emesis but it has been persistent over the last 2 treatments.. She denies any new diarrhea or constipation. She denies any shortness of breath orthopnea. She denies any lower extremity edema. She states her back appetite and activity tolerance are both really good. She states she does tire but recovers well with rest. Her ECOG is 0. Past Medical History: Cancer (breast (left)) in 2009 Past Surgical History: Cholecystectomy Colonoscopy Hysterectomy Nisson wrap Right breast implant removed Tonsillectomy Flu vacc in 2019 Flu vaccine in 2019 - Given in right deltoid/lc Flucevax in 2018 - right deltoid Portacatheter in 2017 Mastectomy in 2008 - bilateral October of 2015. She had an unknown rupture and repair Allergies: Codeine Sulfate Medications: Claritin 1 Tablet (of 10 mg) Oral daily Magnesium 1 Tablet Oral daily PRN Multivitamin Adults 1 Tablet Oral daily PRN Potassium 1 Tablet (of 99 mg) Oral daily PRN Prevacid 1 Capsule (of 30 mg) Capsule Delayed Release Oral b.i.d. Vitamin C 1 Tablet Oral daily PRN Family History: Ms. Santamaria's mother at age 89: heart attack. Ms. Santamaria's father is alive. Social History: Ms. Santamaria is and she is a disabled. Ms. Santamaria quit smoking 14 years ago but had smoked 1.0 pack/day for 33 years. She has no history of drinking. Ms. Santamaria reports the following support systems: lives with spouse, significant other, family, or friends, lives in own house, supportive family/friends willing to assist with needs, and adequate transportation available for expected visits. Her diet consists of regular meals. She indicates her activity level as: daily activities. Review Of Symptoms: Constitutional Denies fevers, chills, night sweats, or weight loss. Allergic/Immunologic No reactions. Eyes Denies significant visual changes. No diplopia. No amaurosis. ENMT Denies changes in hearing, sore throat, mouth sores, difficulty or changes in swallowing ability, and/or sinus drainage. Endocrine No diabetes, thyroid disease or hormone replacement. Denies hot flashes or night sweats. Hematologic/Lymphatic Denies easy bruising or bleeding. The patient denies any tender or palpable lymph nodes. Breasts No concerns Respiratory dyspnea on exertion-short of breath-stable. Denies chest pain, cough or hemoptysis. Denies orthopnea. Cardiovascular Denies anginal chest pain, palpitations or orthopnea. Gastrointestinal Denies current nausea, vomiting, diarrhea, GI bleeding. Delayed mild nausea-see above-no emesis. Genitourinary (F) No hematuria, hesitancy, incontinence, vaginal bleeding, discharge or other problems with urination. Musculoskeletal Denies joint pain, swelling or redness. No decreased range of motion. Integumentary Denies chronic rashes, inflammation, ulcerations or skin changes. Neurologic Denies headache, blurred vision, and no areas of focal weakness or numbness. Normal gait. No sensory problems. Psychiatric Denies insomnia, depression, estelita or mood swings. Vital Signs: Performed on Jan 13, 2020 10:59 Height - 67.00 in Weight - 144.8 lbs (HIGH) BSA - 1.76 sq.m BMI - 22.68 Temperature - 98.4 F Pulse - 95 /min Respiration - 24 /min BP - 144/70 mm(hg) (HIGH) O2 Sat - 99 % Pain - 0,0 - Fully active, able to carry on all predisease activities without restrictions. (ECOG) Physical Examination: Constitutional Alert, oriented, no acute distress. Skin pink, warm and dry. Head Normocephalic; atraumatic. Eyes Conjunctivae and sclerae are clear and without icterus. Pupils are reactive and equal. ENMT No mouth sores or yeast. Neck Supple without masses or thyromegaly. No jugular venous distension. Hematologic/Lymphatic No petechiae or purpura. Respiratory Lungs are diminished bilaterally to auscultation without rhonchi or wheezing. Cardiovascular Regular rate and rhythm of heart without murmurs,clicks, gallops or rubs. Abdomen Non-tender, non-distended, no masses or ascites. Good bowel sounds noted in all quads. No guarding or rebound tenderness. No pulsatile masses. Back/Spine Non-tender to palpation. Extremities No visible deformities, no cyanosis, clubbing or edema. Musculoskeletal No tenderness or swelling, normal range of motion without obvious weakness. Integumentary No rashes or lesions. Neurologic No sensory or motor deficits, normal cerebellar function, normal gait. Psychiatric Alert and oriented times three. Coherent speech. Verbalizes understanding of our discussions today. Laboratory:Test performed on Dec 23, 2019 09:40 Sodium 141 mmol/L Potassium 3.4 mmol/L Chloride 103 mmol/L CO2 26 mmol/L Anion Gap 15.4 BUN 10 mg/dL Creatinine 0.6 mg/dL Cr Clearance (Est) 101.7100 mL/min eGFR 101.0 mL/min Glucose 39 mg/dL Osmolality - Calculated 288 mOsm/kg Calcium 9.5 mg/dL Protein, Total 7.3 g/dL Albumin 3.7 g/dL Globulin 3.6 g/dL Bilirubin, Total 0.3 mg/dL ALT (SGPT) 24 U/L AST (SGOT) 39 U/L Alkaline Phosphatase 218 IU/L WBC 7.1 10 3/uL RBC 3.48 10 6/uL HGB 11.7 g/dL HCT 38.3 % MCV 110.1 fL MCH 33.6 pg MCHC 30.5 g/dL RDW 18.4 % Platelet Count 376 10 3/cmm MPV 9.6 fL Neutrophils 3.73 10 3/uL Lymphocytes 1.9 10 3/uL Monocytes 1.1 10 3/uL Eosinophils 0.3 10 3/uL Basophils 0.1 10 3/uL Neutrophil % 52.6 % Lymphocyte % 26.7 % Monocyte % 15.5 % Eosinophil % 4.1 % Basophils % 0.7 % NRBC % 0 % Test performed on Nov 11, 2019 08:21 Manual Lymphocytes 16.6 % Manual Monocytes 2.3 % Manual Eosinophils 4.4 % Manual Basophils 0.4 % Test performed on Aug 28, 2019 10:55 TSH 3.28 uIU/mL Test performed on Jul 31, 2019 08:00 Magnesium 2.1 mg/dL Test performed on July 17, 2019 10:00 Ferritin 524 ng/mL Iron 94 mcg/dL Vitamin B12 853 pg/mL Iron Binding Capacity (TIBC) 316 mcg/dl % Iron Saturation 29.7 % UIBC 222 mcg/dL Impression: History of left breast cancer with metastases to left scapula status post bilateral mastectomy and left axillary lymph node dissection followed by radiation therapy to left chest wall and axilla in 2008 in [facility] in [facility] status post 1 year of Herceptin and paclitaxel and Arimidex for some time status post radiation therapy to left scapula biopsy-proven metastases Medical record obtained from [facility] [place], [place] and ER/AK positive HER-2/oneida overexpression positive it shows #1 presentation with abnormal screening mammogram in 2010. Patient underwent neoadjuvant chemotherapy with weekly paclitaxel and Herceptin for 12 cycle from May Treated with neoadjuvant chemotherapy FEC plus Herceptin from August 2010 through October 2010 In November 2010 she undergoes bilateral simple mastectomy with pathology demonstrating pT2 N2 disease Mrs Santamaria completed 1 year of adjuvant Herceptin therapy with adjuvant aromatase inhibitor In October 2011 patient transitioned to single agent tamoxifen due to poor tolerance of aromatase inhibitor therapy In October 2012 patient presented with left scapular pain imaging demonstrates abnormal bones lesion with biopsy notable for ER/AK positive HER-2/oneida overexpressing breast cancer, staging evaluation demonstrated bilateral pulmonary nodules with mediastinal lymphadenopathy On 12/16/2012 patient initiates letrozole plus Herceptin plus PERJETA on clinical trial On 02/22/2015 patient demonstrates subjective progression of disease within lungs On 02/25/2015 initiated on KADCYLA History of metastatic disease status post chemotherapy with different agents on multiple occasions most recent hormonal agent was letrozole 2.5 mg Elevated tumor markers [place] [address] scan of chest abdomen pelvis done on 10/10/2016 showed multiple bilateral pulmonary nodules consistent with metastatic disease multiple lytic lesion including posterior aspect of T12 vertebral body related dissection of much of right side of T10 vertebra and a large lytic lesion involving the roof of the right acetabulum and right iliac wing and focus of due to dissection lesion in right ischium Stable tiny low-attenuation abnormalities within the liver most likely consistent with multiple tiny cysts Pulmonary emphysema 8 ON 09/24/2016 CA 15.3 342.6 CA 27- 29 493.59 Upper mid back pain and right hip pain due to bone metastases questionable cord compression. She did have restaging with PET/CT on 11/03/2016. The PET/CT revealed multiple FGD avid osteolytic metastases in the left scapula, posterior left 9th rib, T10, T12 and the anterior right acetabulum. Multiple FDG avid metastatic pulmonary nodules represented by 1.9 cm nodule in the posterbasal segment of the right lower lobe with an SUV of 5 and a 1.7 cm nodule in the anterrobasal segment of the left lower lobe with an SUV of 5.1. No hepatic or adrenal metastases identified. Mrs Santamaria was referred to [facility] radiation oncology and underwent radiation to the right hip, left scapula, T10-T12 spine. Her pain resolved with the radiation. offered her palliative chemotherapy with Navelbine and Herceptin. She has agreed to a trial of the chemotherapy. CT scan of the chest August 2017 reported disease progression in the chest and evidence of possible hepatic involvement as well as possible metastatic site involving the left 12th rib. PET/CT scan done on 03/02/2017 showed multiple FDG avid metastatic pulmonary nodules represented by 1.9 cm nodule in the posterior basal segment of right lower lobe with SUV 9.6 compared to 5 on prior exam and a 1.7 cm nodule in the anterior basal segment of left lower lobe with SUV of 4.9 compared to 4.1 on prior exam. There were multiple new hepatic metastatic lesions represented by 1.7 cm nodule with SUV of 5.4 in the anterior superior segment right upper lobe. The PET/CT also reported bone metastasis the left anterior superior iliac spine posteriorly right sacroiliac and T10 T12 right acetabulum, left scapula and posterior left eighth rib. MRI scan of C-spine done on 02/28/2017 showed metastatic lesion of C2 vertebral body. Additional foci of metastatic disease may involve C6 and T1 vertebral bodies multiple disc bulging and spondylosis at C5/C6 and C6/C7 with mild anterior impingement Episode of rectal bleed/abdominal pain probably due to diverticulitis/diverticular bleed CT scan of chest abdomen pelvis done on 03/31/2017 showed pulmonary metastatic disease with variable size of some of the lesion since 10/30/2016 some lesions are smaller and other are larger hepatic and bone metastatic disease similar to the prior exam CT PET scan done on 04/27/2017 showed osseous lesion in left half of C1, and right T1 transverse process and left T1 pedicle, the L1 vertebral body, and L2 vertebral body shows no changes. However, pelvic metastatic disease has worsened with SUV 8.2 compared to 4.1 previously but she is status post radiation therapy to her pelvic bones., Multifocal hepatic metastatic disease is progressed , with SUV 9.8 compared to 5.4 earlier, bilateral hypermetabolic pulmonary nodules are unchanged and right hilar malignant node demonstrated progression Started on lapatinib and Xeloda on 06/08/2017 then it was placed on hold due to radiation therapy to left hip pain. Left posterior hip pain due to bone metastases status post radiation to right hip. Status post radiation therapy to C-spine could complete 9 out of 12 recommended doses because of severe radiation-induced pharyngitis , finished on 06/25/2017 Status palliative post radiation to hip, finished on 06/26/2007 Tumor marker [id number] gone up to 1346.70 on 08/20/2017 from 896.45 on 07/04/2017 Lapatinib and Xeloda discontinued on 08/26/2017 and her treatment plan changed to weekly Herceptin and Taxane 3 weeks on and 1 week off with followup PET/CT after the third cycle. She had GI issues with Zometa ( an episode of nausea vomiting and abdominal pain) so she refuses to repeat the Zometa. She will be offered Xgeva 120 mg every month instead of the Zometa. She began her first cycle of Abraxane and Herceptin on 10/09/2017.Till 12/17/2017 at that time Abraxane was discontinued because of intolerance and last dose of Herceptin was given on 12/31/2017 and because of progressive weakness and fatigue this was also discontinued Patient was referred to [facility] she was seen by Dr. Ramirez on 03/31/2018, many clinical trials are available but due to transportation and financial reason patient could not consider any of them. So palliative chemotherapy with erbulin /Herceptin or carboplatin/gemcitabine/Herceptin was recommended. She did discontinue letrozole on 04/07/2018 and it was recommended that she start on weekly carboplatin AUC 2/gemcitabine 1000 mg/m2/Herceptin day 1, 8 and 15 every 28 days. Along with monthly Xgeva. She began her first cycle on 04/15/2018 .Follow-up CT PET scan done on 07/05/2018 showed hepatic metastatic disease has improved when compared with CT PET scan done in April 2017 and index lesion in the right hepatic dome has now significant central necrosis. There was a mixed response to multiple lung nodules, a left upper lobe nodules is unchanged in size at 1.6 cm but has SUV 3.8 compared to 5.6 before similar improvement is present in the posterior right lower lobe nodule and left lung base nodules. However there are new lesions in the right middle and medial right lobes, the 2 new lesions in the medial right lobe have SUV of 289 and right middle lobe measures 2.6 cm with SUV of 6.8. Multiple osseous lesion seen previously were sclerotic and FDG negative. Suspicious uptake is identified in left femoral neck and proximal right femur and L2. Mrs Santamaria continues with Carboplatin, gemcitabine and Herceptin and monthly Xgeva. She does require intermittent support with growth factors to keep her blood counts up in order to stay on the treatment plan. Follow-up CT PET scan done on 10/25/2018 showed multiple hepatic lesions are seen on prior studies on 07/05/2018 or minimally improved in size and now with improved SUV. Mild improvement in bilateral lung nodules both in size and SUV. Mild improvement is noted in multifocal osseous metastatic disease. Follow-up echocardiogram done on 11/07/2018 showed ejection fraction around 60%. She continued with weekly Carboplatin/gemcitabine and Herceptin. She has completed 11 full cycles and had restaging imaging on 04/21/2019. She had a PET/CT at [facility] on 04/21/2019. The PET/CT apparently was not compared to the scan she had on 10/25/2018. A review/comparison and an addended report has been requested. However in the interim we discussed the findings of her April 21, 2019 PET in relation to the October 25, 2018 PET. There were multiple pulmonary nodules present with the largest at the right base posteromedially measuring 4.9 x 2 point centimeters with a maximum SUV of 6.71. The results of that SUV on the October 25, 2018 report is somewhat blurry but looks to be 8.4 possibly 6.4 but indicates that the pulmonary nodules are relatively stable. The maximum SUV in the liver was 3.31 and on the October 2018 scan was 5.1. did compare the reports and felt that Soledad had had some improvement in her overall disease. She continued with chemotherapy with carboplatin gemcitabine and Herceptin. As her recent PET scan confirms disease progression she will discontinue her current chemo regimen with Herceptin/carboplatin/gemcitabine and prior approval was requested for Fam Trastuzumab deruxtecan (Enhertu). Dr Pitts had discussed the side effects possible benefits associated with Enhertu including but not limited to allergic reaction, nausea vomiting, fatigue, hair loss,, pneumonitis, neuropathy, bone marrow suppression amongst others. Mrs Santamaria has consented to treatment and we do have approval from insurance. BREAST CANCER TREATMENT HISTORY SUMMARY Paclitaxel Herceptin for 12 cycles from May 2010 to August 2010 FEC and Herceptin through October 2010 Aromatase inhibitor began in October 2010 Bilateral mastectomies November 2010???postmastectomy radiation completed 03/21/2011 Tamoxifen 2013 Clinical trial with Herceptin, Perjeta and letrozole beginning November 2012 through February 2015 Kadcyla began in February 2015 but was stopped after 2-3 doses due to intolerance Radiation to the right hip, left scapula, T10-T12 spine in October 2016. She is also started on lapatinib and Xeloda which continued through August 2017. She had elevation of tumor markers and at that time was switched to Herceptin and Abraxane on 10/09/2017. She stopped the Abraxane after her last dose on 12/17/2017 because of intolerance and Herceptin was then given on 12/31/2017. She was [facility] for possible clinical trials but due to transportation and financial reasons she could not consider any of them. She began palliative chemotherapy with carboplatin gemcitabine and trastuzumab on 04/15/2018. She was also getting monthly Xgeva. She is remained on this regimen until her most recent PET/CT from October 2019 which is show disease progression. She will be transitioned to Enhertu (11/05/2019). Plan: 1. Proceed with cycle 4 Enhertu. 2. Continue current antiemetics. 3. She is due for denosumab today as well according to our chart her last dose was November 05, 2019. 4. Labs from 01/12/2020 were reviewed in detail and discussed with Mrs. Santamaria and a copy was given to her. WBC 4.9, hemoglobin 12 platelets are 91,000 ANC is 1500 potassium 3.2 creatinine 0.6 LFTs are normal alk phos is stable but elevated at 253. 5. Her last echocardiogram was on 09/24/2019. Her ejection fraction at that time was reported at 55 to 60% and unchanged from previous exam. There were no wall motion abnormalities or left ventricular wall thickness. She will be due for follow-up in 3 to 6 months unless symptoms warrant otherwise. 5. I have asked her to try taking an antiemetic on the night before she has been experiencing the delayed nausea just to see if this would help zepeda that off. She denies any heartburn. She states she has not tried antiemetics but is willing to do so just to see if that will help keep the nausea at bay. I did tell her that she could also take it a couple of times the following day if she has not having nausea and then does take it as needed. 6. We will plan to see her back in 3 weeks with CBC CMP. 7. Mrs. Santamaria was instructed to contact us in the interim should questions or problems arise. Signed By: Liliana Bernstein-, AOTERELLP Kortney Pitts MD <<Signature on File>>
== END 2020-01-18 23:59 | disposition home or self-care (01) ==
LOC: ONCMED 05:41
PROVIDERS: Internal Medicine Hematology & Oncology; PCP Nurse Practitioner Family; Visit Provider Nurse Practitioner
DX: Z51.11 Encounter for antineoplastic chemotherapy (principal); C50.812 Malignant neoplasm of overlapping sites of left female breast; Z17.0 Estrogen receptor positive status [ER+]; C78.01 Secondary malignant neoplasm of right lung; C78.02 Secondary malignant neoplasm of left lung; C79.51 Secondary malignant neoplasm of bone; D61.810 Antineoplastic chemotherapy induced pancytopenia; T45.1X5A Adverse effect of antineoplastic and immunosuppressive drugs, initial encounter; J43.9 Emphysema, unspecified; Z79.811 Long term (current) use of aromatase inhibitors; Z79.899 Other long term (current) drug therapy; Z92.3 Personal history of irradiation
CPT/HCPCS: 36415; 80053; 85025; 90471; 90686; 96367; 96372; 96413; 99214; J0897; J1100; J2469; J7050; J9358

== ENCOUNTER 2020-02-03 05:38 | Outpatient (RCR) | payer MEDICARE, SELFPAY ==
[2020-02-02 12:17] LABS: Basophils # 0.1 10^3/uL (0.0-0.1); Basophils % 1.3 %; Eosinophils # 0.3 10^3/uL (0.0-0.8); Eosinophils % 7.6 %; Hematocrit 35.4 % (37.0-47.0); Hemoglobin 11.3 g/dL (11.5-15.3); Lymphocytes # 1.6 10^3/uL (0.8-4.8); Lymphocytes % 39.9 %; Mean Corpuscular HGB Conc 31.9 g/dL (30.0-36.0); Mean Corpuscular Hemoglobin 34.5 pg (28.0-34.0); Mean Corpuscular Volume 107.9 fL (81-99); Mean Platelet Volume 9.6 fL (7.4-10.4); Monocytes # 0.8 10^3/uL (0.2-0.9); Monocytes % 19.4 %; Neutrophils # 1.23 10^3/uL (1.8-7.7); Nucleated Red Blood Cells % 0 %; Platelet Count 337 10^3/cmm (130-400); Red Blood Count 3.28 10^6/uL (4.1-5.3); Red Cell Distribution Width 17.6 % (12.1-15.1)
[2020-02-02 12:22] LABS: Alanine Aminotransferase 28 U/L (0-33); Albumin Level 3.7 g/dL (3.5-5.2); Alkaline Phosphatase 210 IU/L (35-105); Anion Gap 14.6 (5-19); Aspartate Amino Transferase 41 U/L (0-32); Blood Urea Nitrogen 7 mg/dL (8-23); Calcium 8.8 mg/dL (8.5-10.5); Carbon Dioxide 26 mmol/L (22-29); Chloride 103 mmol/L (98-107); Globulin 3.1 g/dL (1.3-4.6); Glomerular Filtration Rate 124.6 mL/min (90-130); Glucose 66 mg/dL (65-115); Osmolality Calculated 286 mOsm/kg (285-295); Potassium 3.6 mmol/L (3.5-5.1); Sodium 140 mmol/L (136-145); Total Bilirubin 0.4 mg/dL (0.15-1.2); Total Protein 6.8 g/dL (6.6-8.7)
[2020-02-03] MEDS: sodium chloride 0.9% 250 ML 999 ML IV (10:25)
[2020-02-03] MEDS: palonosetron 0.25 mg/5 mL SDV IV (10:25)
--- NOTE | 2020-02-03 13:14 | ONC FU_ITS ---
Dr. Pitts follow up note Patient: Soledad Santamaria Unit #: [id number]: 1955 Dicatated By: Kortney Pitts M.D.Date of Visit:Feb 03, 2020 Onc Med Follow-up/Prog Note History of Present Illness: Mrs. Santamaria is a 64-year-old female with history of left breast carcinoma with bone metastasis. She presented with an abnormal mammogram in 2010. She had apparently had detected an left-sided breast mass in late 2009. She was referred to Dr Gadiel Reed @ [facility] in [place], [place]. In April 2010, she underwent needle core biopsy of the left breast that did confirm invasive ductal carcinoma histological grade 2/3, ER+ MI+ and Her 2 Oneida immunostain was 3+. She also had biopsy of a left axillary lymph node that was positive for invasive carcinoma with no lymphoid tissue identified. Her exam prior to chemo revealed a 3 cm mass in the extreme upper outer aspect of the left breast and multiple palpable enlarged lymph nodes-the largest was 2 cm and mobile.. Further workup included a breast MRI which did show biopsy proven malignancy in the left upper outer quadrant measuring 3.3 cm with associated axillary and subpectoral adenopathy. She had multiple satellite nodes with the largest measuring 7 cm. She did undergo MRI guided biopsy on June 08, 2010, which did report invasive cancer. She did have CT of the chest and a bone scan which did not show distant disease,. However, there was an enlarged lymph node in the subcutaneous tissues posterior to the left scapula and was biopsied on May 26, 2010 and was negative for malignancy. She under went neoadjuvant chemotherapy with weekly paclitaxel and Herceptin for 12 cycles from May 2010 to August of 2010 followed by FEC and Herceptin through October 2010. She completed 1 year of Herceptin in May 2011 during which time she was also taking an AI. She did have febrile neutropenia requiring admission in September 2010. She underwent bilateral mastectomies( for abnormal mammogram findings in the right breast) at [facility] in [facility] in November 2010. She did have post mastectomy radiation completed on 03/21/2011. She then underwent reconstruction with bilateral breast implants. Unfortunately in November 2011, the left implant became infected and had to be removed. During work up of the implant abnormality she has found to have a metastatic lesion in her left scapula. She did not have any problems until November of 2012 at which time she was having generalized bone pain, which she thought was a combination of Actonel and Anastrozole. The pain did not improve with stopping these medications. She was transitioned to single agent Tamoxifen. A bone scan revealed increased activity along the lateral margin of the left scapula suspicious of osseous metastatic disease when compared to the bone scan from November 2011. This lesion was biopsied on 12/01/2012 and revealed metastatic disease consistent with the breast primary. She did not have radiation at that time as she was not having significant pain. Mrs Santamaria was restaged and found to have diffuse pulmonary nodules and mediastinal lymphadenopathy and in November 2012, she was enrolled in a clinical trial with Herceptin. Perjeta and Letrozole. She had restaging in March 2014 that revealed slight progression of her pulmonary nodules which did not meet criteria for end point results of the clinical trial and was taken off the trial. Her bone scan was reported as stable. She transferred her care to [facility] in [place], [place] to the care of Dr Mehran Jacobson III in May 2014 due to the difficulty traveling to [facility]. The treatment of letrozole, Herceptin and Perjeta was continued until she disease progression and was changed to Kadcyla in February 2015 after restaging imaging revealed disease progression.And she could not tolerate and it was discontinued after 2 or 3 doses. INTERIM HISTORY: Mrs Santamaria was referred to us in October 2016 for followup at which time, Mrs Santamaria was having right upper back pain, left chest wall pain and right groin pain. She did have restaging with PET/CT on 11/03/2016. The PET/CT revealed multiple FGD avid osteolytic metastases in the left scapula, posterior left 9th rib, T10, T12 and the anterior right acetabulum. Multiple FDG avid metastatic pulmonary nodules represented by 1.9 cm nodule in the posterbasal segment of the right lower lobe with an SUV of 5 and a 1.7 cm nodule in the anterrobasal segment of the left lower lobe with an SUV of 5.1. No hepatic or adrenal metastases identified. Mrs Santamaria was [place] [facility] [place] and underwent radiation to the right hip, left scapula, T10-T12 spine. Her pain resolved with the radiation, offered her palliative chemotherapy with Navelbine and Herceptin. She had agreed to a trial of the chemotherapy. Follow-up CT PET scan showed disease progression chemotherapy was discontinued and she was referred to radiation oncology for palliative radiation therapy. After this cycle of radiation therapy, she was started on lapatinib and Xeloda. She was tolerating it well but she was referred to radiation for C-spine metastases management. At that time her chemotherapy was put on hold. She developed right hip pain for which she received palliative radiation therapy to the 06/25/2017. The lapatinib and Xeloda was restarted but her follow-up tumor markers showed evidence of disease progression as the CA-27-29 gone up to 1346.70 on 08/20/2017 compared to 896.45 on 07/04/2017. Her chemotherapy with Xeloda and lapatinib was discontinued and decided to switch her to weekly Herceptin and Taxane , patient doesn't want take steroids so we recommended Herceptin and Abraxane combination. She did develop nausea vomiting abdominal pain with her last dose of Zometa and doesn't want to take Zometa anymore. We will switch her to Xgeva. There was delay in getting started with the Herceptin/Abraxane. She apparently had positive TB test which required workup and eventually was found to be a false positive. She began her first cycle of Herceptin and Abraxane on 10/09/2017.Last dose of Abraxane/Herceptin was given on 12/17/2017 and because of intolerance Abraxane was discontinued and last dose of Herceptin was given on 12/31/2017 Mrs Santamaria was seen by Dr. Ramirez, oncologist at [facility], for clinical trial and many clinical trials available but due to transportation and financial reasons, patient could not consider any of them. Palliative chemotherapy with carboplatin/gemcitabine/Herceptin or eribulin /Herceptin was recommended. Patient had bone scan and CT scan of chest abdomen done at [facility] which showed widespread metastatic disease. She began chemotherapy with weekly carboplatin, gemcitabine and trastuzumab on 04/15/2018 Follow-up CT PET scan done on 07/05/2018 showed improvement in hepatic metastatic disease since April 2017 study Mixed response to multiple bilateral pulmonary lesion Reactive marrow with splenic activity Osseous metastatic disease seen on April 2017 study is sclerotic and FDG negative Mrs Santamaria was admitted to hospital with abdominal pain and diagnosed with diverticulitis treated successfully with antibiotics and during this time, CT scans of chest abdomen pelvis were done on 07/30/2018 . The scans showed extensive pulmonary metastases and hepatic metastases and bone metastases, stable when compared with CT PET scan done in June 2018. She continued with treatment with carboplatin/gemcitabine/Herceptin. Follow-up CT PET scan done on 10/25/2018 showed mild improvement in hepatic, pulmonary and osseous metastatic disease. She has continued with chemotherapy with weekly Carboplatin, gemcitabine and Herceptin. She is receiving Neupogen support on and Saturday after her treatment on Saturday. She was getting the Neupogen at [place], [place]. She tolerated this plan well. She continues to have exertional shortness of breath but states it is no worse than what is has been but it is no better either. She denies any angina type pain but thinks she may have palpatations once in a while with the shortness of breath. She denies orthopnea. She denies any cough. She does have a very strong family history of CAD-both parents with her father's first OK in his 30's and both brothers have CAD. She has never had a diagnosis of CAD. She did have an echocardiogram on 11/07/2018 that reported EF of 60%-unchanged from previous echo. She reported she had a bug bite on her right breast reconstruction site around where the nipple should be. She states it presented as a big blister then it popped and then formed a scabbed area but no drainage. She had been applying triple antibotic ointment to it. She was referred to plastic surgery at [facility] and ulimately underwent right breast implant removal in December 2018, as per patient and there was no evidence of breast cancer in the specimen. Her chemotherapy was delayed because of dental procedure from 12/30/2018 to 02/04/2019. She resumed treatment on 02/04/2019. Echocardiogram done on 03/09/2019 showed Ejection fraction was 68%. Mrs Santamaria underwent restaging PET/Ct on 04/21/2019. The PET/CT apparently was not compared to the scan she had on 10/25/2018. A review/comparison and an addended report has been requested. However in the interim we discussed the findings of her April 21, 2019 PET in relation to the October 25, 2018 PET. There were multiple pulmonary nodules present with the largest at the right base posteromedially measuring 4.9 x 2 point centimeters with a maximum SUV of 6.71. The results of that SUV on the October 25, 2018 report is somewhat blurry but looks to be 8.4 possibly 6.4 but indicates that the pulmonary nodules are relatively stable. The maximum SUV in the liver was 3.31 and on the October 2018 scan was 5.1. did compare the reports and felt that Soledad had had some improvement in her overall disease. We of course are waiting for the final review and updated report. These findings have been discussed with Mrs Santamaria she understands that it will be compared with the one in October. She has had persistent right arm numbness and has an appointment with Dr Matthew soto for followup on that. She now has noticed right leg numbness. It comes and goes but seems to be lasting longer when it does come. She has had no TIA symptoms. MRI scan of the head done on 05/07/2019 showed no evidence of brain metastases. Due to hyperintense enhancing 9 x 6 mm intrapituitary lesion in the left aspect of pitiutary. Normal optic chasm. Slight [id number] mass effect on the infundibulum. Consistent with a pituitary adenoma. 10 mm metastatic C2 vertebral body lesions likely previously treated. She has continued with carboplatin, gemcitabine and Herceptin. She is also getting monthly Xgeva. Echocardiogram done on November 07, 2018 showed ejection fraction around 65% and appears unchanged from before Echocardiogram done on September 24, 2019 showed ejection fraction 55 -60% CT PET scan done on October 14, 2019 showed increasing metabolism of existing pulmonary nodules e.g. dominant pulmonary nodule within the medial right lower lobe with SUV of 8.3 compared to 6.7 in April 2019 and medial left lower lobe nodule is 1.4 x 1.3 cm with SUV 7 compared to 1.1 x 4 cm with SUV of 2.3 but no new lung nodule In abdomen increase in size of dominant cyst within central portion of liver measuring 6.7 x 5.1 with SUV of 8.1 compared to 4.8 by with SUV of 6 there is a new hypermetabolic lesion within the right lower lobe of the liver, size 0.9 cm with maximum SUV 6 increasing hypermetabolic activity in the existing osseous metastasis without new lesion identified e.g. in the sacrum SUV 6.9 compared to 4.6 previously. Due to the disease progression,she was recommended further treatment with Enhertu (fam-trastuzumab deruxtecan) an anti-HER2; monoclonal antibody; antineoplastic agent, topoisomerase I inhibitor. She began her first cycle on 11/05/2019. Came for follow-up, denies any specific complaint except generalized weakness and fatigue, off and on indigestion and mild nausea but under control with current antiemetics and also soft stools but no diarrhea occasionally abdominal cramps but no jaundice no melena or hematochezia, no hemoptysis or hematemesis, no headaches or blurred vision, no chest pain or palpitation, no lower extremity edema or swelling or rash. Tolerating Enhertu well otherwise Medications: Claritin 1 Tablet (of 10 mg) Oral daily, Magnesium 1 Tablet Oral daily PRN, Multivitamin Adults 1 Tablet Oral daily PRN, Potassium 1 Tablet (of 99 mg) Oral daily PRN, Prevacid 1 Capsule (of 30 mg) Capsule Delayed Release Oral b.i.d., Vitamin C 1 Tablet Oral daily PRN Allergies: Codeine Sulfate Review of Systems: Constitutional - Appetite is fair, weight is stable. Energy level is poor. Positive for chills. No fever, night sweats or hot flashes, ENMT - No sinus congestion/drainage. No mouth sores. No sore throat or difficulty swallowing, Hematologic/Lymphatic - No abnormal bruising or bleeding, Respiratory - Positive for occasional shortness of breath, Cardiovascular - No anginal chest pain, palpitations or orthopnea, Gastrointestinal - No nausea, vomiting, GI bleeding, or constipation. No change in bowel habits, no heartburn or early satiety. Positive for diarrhea, Genitourinary (F) - No hematuria, dysuria, increased frequency, urgency, hesitancy or incontinence, Musculoskeletal - Positive for occasional back pain, Integumentary - Negative for any issues, Neurologic - No dizziness, Psychiatric - No anxiety or depression. Occasional insomnia. Vital Signs: Performed on Feb 03, 2020 09:31 Height - 67.00 in Weight - 144.4 lbs (LOW) BSA - 1.76 sq.m BMI - 22.62 Temperature - 98.8 F Pulse - 93 /min Respiration - 24 /min BP - 123/69 mm(hg) O2 Sat - 94 % (LOW) Pain - 0 Performance Status: 1 - No physically strenuous activity, but ambulatory and able to carry out light or sedentary work (e.g. office work, light house work). (ECOG) Physical Examination: - No mouth sores no thrush, no jaundice, Respiratory - Lungs are clear to auscultation, Cardiovascular - Regular rate and rhythm of heart, Gastrointestinal - Soft, bowel sounds present, Extremities - No visible edema or rash. Lab/Imaging: Test performed on Jan 12, 2020 11:35 Sodium 142 mmol/L Potassium 3.2 mmol/L Chloride 103 mmol/L CO2 29 mmol/L Anion Gap 13.2 BUN 8 mg/dL Creatinine 0.6 mg/dL Cr Clearance (Est) 101.7100 mL/min eGFR 101.0 mL/min Glucose 82 mg/dL Osmolality - Calculated 291 mOsm/kg Calcium 9.4 mg/dL Protein, Total 7.4 g/dL Albumin 3.9 g/dL Globulin 3.5 g/dL Bilirubin, Total 0.3 mg/dL ALT (SGPT) 27 U/L AST (SGOT) 35 U/L Alkaline Phosphatase 253 IU/L WBC 4.9 10 3/uL RBC 3.57 10 6/uL HGB 12.0 g/dL HCT 38.9 % MCV 109.0 fL MCH 33.6 pg MCHC 30.8 g/dL RDW 17.8 % Platelet Count 391 10 3/cmm MPV 9.6 fL Neutrophils 1.52 10 3/uL Lymphocytes 1.9 10 3/uL Monocytes 0.9 10 3/uL Eosinophils 0.6 10 3/uL Basophils 0.1 10 3/uL Neutrophil % 30.9 % Lymphocyte % 38.2 % Monocyte % 17.5 % Eosinophil % 12.0 % Basophils % 1.2 % NRBC % 0 % Test performed on Nov 11, 2019 08:21 Manual Lymphocytes 16.6 % Manual Monocytes 2.3 % Manual Eosinophils 4.4 % Manual Basophils 0.4 % Test performed on Aug 28, 2019 10:55 TSH 3.28 uIU/mL Impression: History of left breast cancer with metastases to left scapula status post bilateral mastectomy and left axillary lymph node dissection followed by radiation therapy to left chest wall and axilla in 2008 in [facility] in [facility] status post 1 year of Herceptin and paclitaxel and Arimidex for some time status post radiation therapy to left scapula biopsy-proven metastases Medical record obtained from [facility] [place], [place] and ER/MI positive HER-2/oneida overexpression positive it shows #1 presentation with abnormal screening mammogram in 2010. Patient underwent neoadjuvant chemotherapy with weekly paclitaxel and Herceptin for 12 cycle from May Treated with neoadjuvant chemotherapy FEC plus Herceptin from August 2010 through October 2010 In November 2010 she undergoes bilateral simple mastectomy with pathology demonstrating pT2 N2 disease Mrs Santamaria completed 1 year of adjuvant Herceptin therapy with adjuvant aromatase inhibitor In October 2011 patient transitioned to single agent tamoxifen due to poor tolerance of aromatase inhibitor therapy In October 2012 patient presented with left scapular pain imaging demonstrates abnormal bones lesion with biopsy notable for ER/MI positive HER-2/oneida overexpressing breast cancer, staging evaluation demonstrated bilateral pulmonary nodules with mediastinal lymphadenopathy On 12/16/2012 patient initiates letrozole plus Herceptin plus PERJETA on clinical trial On 02/22/2015 patient demonstrates subjective progression of disease within lungs On 02/25/2015 initiated on KADCYLA History of metastatic disease status post chemotherapy with different agents on multiple occasions most recent hormonal agent was letrozole 2.5 mg Elevated tumor [place] [address] scan of chest abdomen pelvis done on 10/10/2016 showed multiple bilateral pulmonary nodules consistent with metastatic disease multiple lytic lesion including posterior aspect of T12 vertebral body related dissection of much of right side of T10 vertebra and a large lytic lesion involving the roof of the right acetabulum and right iliac wing and focus of due to dissection lesion in right ischium Stable tiny low-attenuation abnormalities within the liver most likely consistent with multiple tiny cysts Pulmonary emphysema 8 ON 09/24/2016 CA 15.3 342.6 CA 27- 29 493.59 Upper mid back pain and right hip pain due to bone metastases questionable cord compression. She did have restaging with PET/CT on 11/03/2016. The PET/CT revealed multiple FGD avid osteolytic metastases in the left scapula, posterior left 9th rib, T10, T12 and the anterior right acetabulum. Multiple FDG avid metastatic pulmonary nodules represented by 1.9 cm nodule in the posterbasal segment of the right lower lobe with an SUV of 5 and a 1.7 cm nodule in the anterrobasal segment of the left lower lobe with an SUV of 5.1. No hepatic or adrenal metastases identified. Mrs Santamaria was [place] [facility] [place] and underwent radiation to the right hip, left scapula, T10-T12 spine. Her pain resolved with the radiation. offered her palliative chemotherapy with Navelbine and Herceptin. She has agreed to a trial of the chemotherapy. CT scan of the chest August 2017 reported disease progression in the chest and evidence of possible hepatic involvement as well as possible metastatic site involving the left 12th rib. PET/CT scan done on 03/02/2017 showed multiple FDG avid metastatic pulmonary nodules represented by 1.9 cm nodule in the posterior basal segment of right lower lobe with SUV 9.6 compared to 5 on prior exam and a 1.7 cm nodule in the anterior basal segment of left lower lobe with SUV of 4.9 compared to 4.1 on prior exam. There were multiple new hepatic metastatic lesions represented by 1.7 cm nodule with SUV of 5.4 in the anterior superior segment right upper lobe. The PET/CT also reported bone metastasis the left anterior superior iliac spine posteriorly right sacroiliac and T10 T12 right acetabulum, left scapula and posterior left eighth rib. MRI scan of C-spine done on 02/28/2017 showed metastatic lesion of C2 vertebral body. Additional foci of metastatic disease may involve C6 and T1 vertebral bodies multiple disc bulging and spondylosis at C5/C6 and C6/C7 with mild anterior impingement Episode of rectal bleed/abdominal pain probably due to diverticulitis/diverticular bleed CT scan of chest abdomen pelvis done on 03/31/2017 showed pulmonary metastatic disease with variable size of some of the lesion since 10/30/2016 some lesions are smaller and other are larger hepatic and bone metastatic disease similar to the prior exam CT PET scan done on 04/27/2017 showed osseous lesion in left half of C1, and right T1 transverse process and left T1 pedicle, the L1 vertebral body, and L2 vertebral body shows no changes. However, pelvic metastatic disease has worsened with SUV 8.2 compared to 4.1 previously but she is status post radiation therapy to her pelvic bones., Multifocal hepatic metastatic disease is progressed , with SUV 9.8 compared to 5.4 earlier, bilateral hypermetabolic pulmonary nodules are unchanged and right hilar malignant node demonstrated progression Started on lapatinib and Xeloda on 06/08/2017 then it was placed on hold due to radiation therapy to left hip pain. Left posterior hip pain due to bone metastases status post radiation to right hip. Status post radiation therapy to C-spine could complete 9 out of 12 recommended doses because of severe radiation-induced pharyngitis , finished on 06/25/2017 Status palliative post radiation to hip, finished on 06/26/2007 Tumor marker CA-27-29 gone up to 1346.70 on 08/20/2017 from 896.45 on 07/04/2017 Lapatinib and Xeloda discontinued on 08/26/2017 and her treatment plan changed to weekly Herceptin and Taxane 3 weeks on and 1 week off with followup PET/CT after the third cycle. She had GI issues with Zometa ( an episode of nausea vomiting and abdominal pain) so she refuses to repeat the Zometa. She will be offered Xgeva 120 mg every month instead of the Zometa. She began her first cycle of Abraxane and Herceptin on 10/09/2017.Till 12/17/2017 at that time Abraxane was discontinued because of intolerance and last dose of Herceptin was given on 12/31/2017 and because of progressive weakness and fatigue this was also discontinued Patient was referred to [facility] she was seen by Dr. Ramirez on 03/31/2018, many clinical trials are available but due to transportation and financial reason patient could not consider any of them. So palliative chemotherapy with erbulin /Herceptin or carboplatin/gemcitabine/Herceptin was recommended. She did discontinue letrozole on 04/07/2018 and it was recommended that she start on weekly carboplatin AUC 2/gemcitabine 1000 mg/m2/Herceptin day 1, 8 and 15 every 28 days. Along with monthly Xgeva. She began her first cycle on 04/15/2018 .Follow-up CT PET scan done on 07/05/2018 showed hepatic metastatic disease has improved when compared with CT PET scan done in April 2017 and index lesion in the right hepatic dome has now significant central necrosis. There was a mixed response to multiple lung nodules, a left upper lobe nodules is unchanged in size at 1.6 cm but has SUV 3.8 compared to 5.6 before similar improvement is present in the posterior right lower lobe nodule and left lung base nodules. However there are new lesions in the right middle and medial right lobes, the 2 new lesions in the medial right lobe have SUV of 289 and right middle lobe measures 2.6 cm with SUV of 6.8. Multiple osseous lesion seen previously were sclerotic and FDG negative. Suspicious uptake is identified in left femoral neck and proximal right femur and L2. Mrs Santamaria continues with Carboplatin, gemcitabine and Herceptin and monthly Xgeva. She does require intermittent support with growth factors to keep her blood counts up in order to stay on the treatment plan. Follow-up CT PET scan done on 10/25/2018 showed multiple hepatic lesions are seen on prior studies on 07/05/2018 or minimally improved in size and now with improved SUV. Mild improvement in bilateral lung nodules both in size and SUV. Mild improvement is noted in multifocal osseous metastatic disease. Follow-up echocardiogram done on 11/07/2018 showed ejection fraction around 60%. She continued with weekly Carboplatin/gemcitabine and Herceptin. She has completed 11 full cycles and had restaging imaging on 04/21/2019. She had a PET/[facility] at [facility] on 04/21/2019. The PET/CT apparently was not compared to the scan she had on 10/25/2018. A review/comparison and an addended report has been requested. However in the interim we discussed the findings of her April 21, 2019 PET in relation to the October 25, 2018 PET. There were multiple pulmonary nodules present with the largest at the right base posteromedially measuring 4.9 x 2 point centimeters with a maximum SUV of 6.71. The results of that SUV on the October 25, 2018 report is somewhat blurry but looks to be 8.4 possibly 6.4 but indicates that the pulmonary nodules are relatively stable. The maximum SUV in the liver was 3.31 and on the October 2018 scan was 5.1. did compare the reports and felt that Soledad had had some improvement in her overall disease. She continued with chemotherapy with carboplatin gemcitabine and Herceptin. As her recent PET scan confirms disease progression she will discontinue her current chemo regimen with Herceptin/carboplatin/gemcitabine and prior approval was requested for Fam Trastuzumab deruxtecan (Enhertu). Dr Pitts had discussed the side effects possible benefits associated with Enhertu including but not limited to allergic reaction, nausea vomiting, fatigue, hair loss,, pneumonitis, neuropathy, bone marrow suppression amongst others. Mrs Santamaria has consented to treatment and we do have approval from insurance. BREAST CANCER TREATMENT HISTORY SUMMARY Paclitaxel Herceptin for 12 cycles from May 2010 to August 2010 [facility]EC and Herceptin through October 2010 Aromatase inhibitor began in October 2010 Bilateral mastectomies November 2010???postmastectomy radiation completed 03/21/2011 Tamoxifen 2013 Clinical trial with Herceptin, Perjeta and letrozole beginning November 2012 through February 2015 Kadcyla began in February 2015 but was stopped after 2-3 doses due to intolerance Radiation to the right hip, left scapula, T10-T12 spine in October 2016. She is also started on lapatinib and Xeloda which continued through August 2017. She had elevation of tumor markers and at that time was switched to Herceptin and Abraxane on 10/09/2017. She stopped the Abraxane after her last dose on 12/17/2017 because of intolerance and Herceptin was then given on 12/31/2017. She was referred to [facility] for possible clinical trials but due to transportation and financial reasons she could not consider any of them. She began palliative chemotherapy with carboplatin gemcitabine and trastuzumab on 04/15/2018. She was also getting monthly Xgeva. She is remained on this regimen until her most recent PET/CT from October 2019 which is show disease progression. She will be transitioned to Enhertu (11/05/2019). Plan: Discussed with patient regarding her labs white blood count 4 hemoglobin 11.3 hematocrit 35.4 platelets 337,000 CMP within normal limits Clinically, patient is doing well, tolerating Enhertu reasonably well but with expected side effects. We will proceed with cycle #5 with Enhertu today and then she will return to clinic in 3 weeks with CBC CMP and follow-up CT PET scan to assess disease response and if she is responding well and if her GI symptoms persist, will consider evaluation including EGD to rule out peptic ulcer disease or H. pylori infection As far as mild nausea is concerned, will try Zofran 8 mg every 8 hour as needed along with low-dose lorazepam. Signed By: Kortney Pitts M.D. <<Signature on File>>
== END 2020-02-18 23:59 | disposition home or self-care (01) ==
LOC: ONCMED 05:38
PROVIDERS: Nurse Practitioner; PCP Nurse Practitioner Family; Visit Provider Internal Medicine Hematology & Oncology
DX: Z51.12 Encounter for antineoplastic immunotherapy (principal); C50.812 Malignant neoplasm of overlapping sites of left female breast; Z17.0 Estrogen receptor positive status [ER+]; C79.51 Secondary malignant neoplasm of bone; C78.01 Secondary malignant neoplasm of right lung; C78.02 Secondary malignant neoplasm of left lung; D61.810 Antineoplastic chemotherapy induced pancytopenia; T45.1X5A Adverse effect of antineoplastic and immunosuppressive drugs, initial encounter; Z92.3 Personal history of irradiation
CPT/HCPCS: 80053; 85025; 96367; 96413; 99215; J1100; J2469; J7050; J9358

== ENCOUNTER 2020-02-29 05:25 | Outpatient (RCR) | payer MEDICARE, SELFPAY ==
[2020-02-23 14:37] LABS: Basophils # 0.1 10^3/uL (0.0-0.1); Basophils % 1.2 %; Eosinophils # 0.3 10^3/uL (0.0-0.8); Eosinophils % 6.5 %; Hematocrit 37.1 % (37.0-47.0); Hemoglobin 11.8 g/dL (11.5-15.3); Lymphocytes # 2.1 10^3/uL (0.8-4.8); Lymphocytes % 42.1 %; Mean Corpuscular HGB Conc 31.8 g/dL (30.0-36.0); Mean Corpuscular Hemoglobin 34.6 pg (28.0-34.0); Mean Corpuscular Volume 108.8 fL (81-99); Mean Platelet Volume 9.5 fL (7.4-10.4); Monocytes # 0.9 10^3/uL (0.2-0.9); Monocytes % 18.4 %; Neutrophils # 1.53 10^3/uL (1.8-7.7); Neutrophils % 31.4 %; Nucleated Red Blood Cells % 0 %; Platelet Count 363 10^3/cmm (130-400); Red Blood Count 3.41 10^6/uL (4.1-5.3); White Blood Count 4.9 10^3/uL (4.0-10.0)
[2020-02-23 15:01] LABS: Alanine Aminotransferase 25 U/L (0-33); Albumin Level 3.6 g/dL (3.5-5.2); Alkaline Phosphatase 231 IU/L (35-105); Anion Gap 11.4 (5-19); Aspartate Amino Transferase 38 U/L (0-32); Blood Urea Nitrogen 7 mg/dL (8-23); Calcium 9.3 mg/dL (8.5-10.5); Carbon Dioxide 28 mmol/L (22-29); Chloride 102 mmol/L (98-107); Globulin 3.3 g/dL (1.3-4.6); Glucose 76 mg/dL (65-115); Osmolality Calculated 283 mOsm/kg (285-295); Potassium 3.4 mmol/L (3.5-5.1); Sodium 138 mmol/L (136-145); Total Bilirubin 0.5 mg/dL (0.15-1.2); Total Protein 6.9 g/dL (6.6-8.7)
[2020-02-24 12:51] LABS: Add Urine Microscopic? YES; Bilirubin Urine Neg (Negative); Blood Urine Neg (Negative); Glucose Urine UA Norm (Normal); Ketones Urine Negative (Negative); Leukocyte Esterase Urine 1+ (Negative); Nitrate Urine Negative (Negative); Protein Urine Neg (Negative); Urine Appearance SL Hazy (CLEAR); Urine Color Yellow (Yellow); Urobilinogen Urine Norm (Negative); pH Urine 5 (5-7)
[2020-02-24 12:57] LABS: Add Urine Culture? Yes; Bacteria Urine TRACE /hpf; Squamous Epithelial Cell Urine RARE /hpf (0-5); WBC Urine >100 /hpf (0-5)
--- NOTE | 2020-02-26 13:15 | ONC FU_ITS ---
Dr. Pitts follow up note Patient: Soledad Santamaria Unit #: [id number]: 1955 Dicatated By: Kortney Pitts M.D.Date of Visit:Feb 24, 2020 Onc Med Follow-up/Prog Note History of Present Illness: Mrs. Santamaria is a 64-year-old female with history of left breast carcinoma with bone metastasis. She presented with an abnormal mammogram in 2010. She had apparently had detected an left-sided breast mass in late 2009. She was referred to Dr Gadiel Reed @ [facility] in [place], [place]. In April 2010, she underwent needle core biopsy of the left breast that did confirm invasive ductal carcinoma histological grade 2/3, ER+ CA+ and Her 2 [place] immunostain was 3+. She also had biopsy of a left axillary lymph node that was positive for invasive carcinoma with no lymphoid tissue identified. Her exam prior to chemo revealed a 3 cm mass in the extreme upper outer aspect of the left breast and multiple palpable enlarged lymph nodes-the largest was 2 cm and mobile.. Further workup included a breast MRI which did show biopsy proven malignancy in the left upper outer quadrant measuring 3.3 cm with associated axillary and subpectoral adenopathy. She had multiple satellite nodes with the largest measuring 7 cm. She did undergo MRI guided biopsy on June 08, 2010, which did report invasive cancer. She did have CT of the chest and a bone scan which did not show distant disease,. However, there was an enlarged lymph node in the subcutaneous tissues posterior to the left scapula and was biopsied on May 26, 2010 and was negative for malignancy. She under went neoadjuvant chemotherapy with weekly paclitaxel and Herceptin for 12 cycles from May 2010 to August of 2010 followed by FEC and Herceptin through October 2010. She completed 1 year of Herceptin in May 2011 during which time she was also taking an AI. She did have febrile neutropenia requiring admission in September 2010. She underwent bilateral mastectomies( for abnormal mammogram findings in the right breast) at [facility] in [facility] in November 2010. She did have post mastectomy radiation completed on 03/21/2011. She then underwent reconstruction with bilateral breast implants. Unfortunately in November 2011, the left implant became infected and had to be removed. During work up of the implant abnormality she has found to have a metastatic lesion in her left scapula. She did not have any problems until November of 2012 at which time she was having generalized bone pain, which she thought was a combination of Actonel and Anastrozole. The pain did not improve with stopping these medications. She was transitioned to single agent Tamoxifen. A bone scan revealed increased activity along the lateral margin of the left scapula suspicious of osseous metastatic disease when compared to the bone scan from November 2011. This lesion was biopsied on 12/01/2012 and revealed metastatic disease consistent with the breast primary. She did not have radiation at that time as she was not having significant pain. Mrs Santamaria was restaged and found to have diffuse pulmonary nodules and mediastinal lymphadenopathy and in November 2012, she was enrolled in a clinical trial with Herceptin. Perjeta and Letrozole. She had restaging in March 2014 that revealed slight progression of her pulmonary nodules which did not meet criteria for end point results of the clinical trial and was taken off the trial. Her bone scan was reported as stable. She transferred her care to [facility] in [place], [place] to the care of Dr Mehran Jacobson III in May 2014 due to the difficulty traveling to [facility]. The treatment of letrozole, Herceptin and Perjeta was continued until she disease progression and was changed to Kadcyla in February 2015 after restaging imaging revealed disease progression.And she could not tolerate and it was discontinued after 2 or 3 doses. INTERIM HISTORY: Mrs Santamaria was referred to us in October 2016 for followup at which time, Mrs Santamaria was having right upper back pain, left chest wall pain and right groin pain. She did have restaging with PET/CT on 11/03/2016. The PET/CT revealed multiple FGD avid osteolytic metastases in the left scapula, posterior left 9th rib, T10, T12 and the anterior right acetabulum. Multiple FDG avid metastatic pulmonary nodules represented by 1.9 cm nodule in the posterbasal segment of the right lower lobe with an SUV of 5 and a 1.7 cm nodule in the anterrobasal segment of the left lower lobe with an SUV of 5.1. No hepatic or adrenal metastases identified. Mrs Santamaria was referred to [facility] radiation oncology and underwent radiation to the right hip, left scapula, T10-T12 spine. Her pain resolved with the radiation, offered her palliative chemotherapy with Navelbine and Herceptin. She had agreed to a trial of the chemotherapy. Follow-up CT PET scan showed disease progression chemotherapy was discontinued and she was referred to radiation oncology for palliative radiation therapy. After this cycle of radiation therapy, she was started on lapatinib and Xeloda. She was tolerating it well but she was referred to radiation for C-spine metastases management. At that time her chemotherapy was put on hold. She developed right hip pain for which she received palliative radiation therapy to the 06/25/2017. The lapatinib and Xeloda was restarted but her follow-up tumor markers showed evidence of disease progression as the CA-27-29 gone up to 1346.70 on 08/20/2017 compared to 896.45 on 07/04/2017. Her chemotherapy with Xeloda and lapatinib was discontinued and decided to switch her to weekly Herceptin and Taxane , patient doesn't want take steroids so we recommended Herceptin and Abraxane combination. She did develop nausea vomiting abdominal pain with her last dose of Zometa and doesn't want to take Zometa anymore. We will switch her to Xgeva. There was delay in getting started with the Herceptin/Abraxane. She apparently had positive TB test which required workup and eventually was found to be a false positive. She began her first cycle of Herceptin and Abraxane on 10/09/2017.Last dose of Abraxane/Herceptin was given on 12/17/2017 and because of intolerance Abraxane was discontinued and last dose of Herceptin was given on 12/31/2017 Mrs Santamaria was seen by Dr. Ramirez, oncologist at [facility], for clinical trial and many clinical trials available but due to transportation and financial reasons, patient could not consider any of them. Palliative chemotherapy with carboplatin/gemcitabine/Herceptin or eribulin /Herceptin was recommended. Patient had bone scan and CT scan of chest abdomen done at [facility] which showed widespread metastatic disease. She began chemotherapy with weekly carboplatin, gemcitabine and trastuzumab on 04/15/2018 Follow-up CT PET scan done on 07/05/2018 showed improvement in hepatic metastatic disease since April 2017 study Mixed response to multiple bilateral pulmonary lesion Reactive marrow with splenic activity Osseous metastatic disease seen on April 2017 study is sclerotic and FDG negative Mrs Santamaria was admitted to hospital with abdominal pain and diagnosed with diverticulitis treated successfully with antibiotics and during this time, CT scans of chest abdomen pelvis were done on 07/30/2018 . The scans showed extensive pulmonary metastases and hepatic metastases and bone metastases, stable when compared with CT PET scan done in June 2018. She continued with treatment with carboplatin/gemcitabine/Herceptin. Follow-up CT PET scan done on 10/25/2018 showed mild improvement in hepatic, pulmonary and osseous metastatic disease. She has continued with chemotherapy with weekly Carboplatin, gemcitabine and Herceptin. She is receiving Neupogen support on and Saturday after her treatment on Saturday. She was getting the Neupogen at [place], [place]. She tolerated this plan well. She continues to have exertional shortness of breath but states it is no worse than what is has been but it is no better either. She denies any angina type pain but thinks she may have palpatations once in a while with the shortness of breath. She denies orthopnea. She denies any cough. She does have a very strong family history of CAD-both parents with her father's first [place] in his 30's and both brothers have CAD. She has never had a diagnosis of CAD. She did have an echocardiogram on 11/07/2018 that reported EF of 60%-unchanged from previous echo. She reported she had a bug bite on her right breast reconstruction site around where the nipple should be. She states it presented as a big blister then it popped and then formed a scabbed area but no drainage. She had been applying triple antibotic ointment to it. She was referred to plastic surgery at [facility] and ulimately underwent right breast implant removal in December 2018, as per patient and there was no evidence of breast cancer in the specimen. Her chemotherapy was delayed because of dental procedure from 12/30/2018 to 02/04/2019. She resumed treatment on 02/04/2019. Echocardiogram done on 03/09/2019 showed Ejection fraction was 68%. Mrs Santamaria underwent restaging PET/Ct on 04/21/2019. The PET/CT apparently was not compared to the scan she had on 10/25/2018. A review/comparison and an addended report has been requested. However in the interim we discussed the findings of her April 21, 2019 PET in relation to the October 25, 2018 PET. There were multiple pulmonary nodules present with the largest at the right base posteromedially measuring 4.9 x 2 point centimeters with a maximum SUV of 6.71. The results of that SUV on the October 25, 2018 report is somewhat blurry but looks to be 8.4 possibly 6.4 but indicates that the pulmonary nodules are relatively stable. The maximum SUV in the liver was 3.31 and on the October 2018 scan was 5.1. did compare the reports and felt that Soledad had had some improvement in her overall disease. We of course are waiting for the final review and updated report. These findings have been discussed with Mrs Santamaria she understands that it will be compared with the one in October. She has had persistent right arm numbness and has an appointment with Dr Matthew soto for followup on that. She now has noticed right leg numbness. It comes and goes but seems to be lasting longer when it does come. She has had no TIA symptoms. MRI scan of the head done on 05/07/2019 showed no evidence of brain metastases. Due to hyperintense enhancing 9 x 6 mm intrapituitary lesion in the left aspect of pitiutary. Normal optic chasm. Slight [id number] mass effect on the infundibulum. Consistent with a pituitary adenoma. 10 mm metastatic C2 vertebral body lesions likely previously treated. She has continued with carboplatin, gemcitabine and Herceptin. She is also getting monthly Xgeva. Echocardiogram done on November 07, 2018 showed ejection fraction around 65% and appears unchanged from before Echocardiogram done on September 24, 2019 showed ejection fraction 55 -60% CT PET scan done on October 14, 2019 showed increasing metabolism of existing pulmonary nodules e.g. dominant pulmonary nodule within the medial right lower lobe with SUV of 8.3 compared to 6.7 in April 2019 and medial left lower lobe nodule is 1.4 x 1.3 cm with SUV 7 compared to 1.1 x 4 cm with SUV of 2.3 but no new lung nodule In abdomen increase in size of dominant cyst within central portion of liver measuring 6.7 x 5.1 with SUV of 8.1 compared to 4.8 by with SUV of 6 there is a new hypermetabolic lesion within the right lower lobe of the liver, size 0.9 cm with maximum SUV 6 increasing hypermetabolic activity in the existing osseous metastasis without new lesion identified e.g. in the sacrum SUV 6.9 compared to 4.6 previously. Due to the disease progression,she was recommended further treatment with Enhertu (fam-trastuzumab deruxtecan) an anti-HER2; monoclonal antibody; antineoplastic agent, topoisomerase I inhibitor. She began her first cycle on 11/05/2019 .Follow-up CT PET scan done after 5 doses of Enhertu on February 16, 2020 showed good response lung, liver and osseous lesion have all improved, new scattered lung and mediastinal findings may reflect inflammatory changes only. Came for follow-up, denies any specific complaint except burning micturition and foul-smelling urine otherwise no fever chills, no abdominal pain, no nausea or vomiting, no diarrhea, no hemoptysis or hematemesis, no headaches, no jaundice. Tolerating Enhertu well otherwise Medications: Claritin 1 Tablet (of 10 mg) Oral daily, Magnesium 1 Tablet Oral daily PRN, Multivitamin Adults 1 Tablet Oral daily PRN, Potassium 1 Tablet (of 99 mg) Oral daily PRN, Prevacid 1 Capsule (of 30 mg) Capsule Delayed Release Oral b.i.d., Vitamin C 1 Tablet Oral daily PRN Allergies: Codeine Sulfate Review of Systems: Review of Systems is not available for this patient. Vital Signs: Performed on Feb 24, 2020 11:07 Height - 67.00 in Weight - 144.0 lbs (LOW) BSA - 1.76 sq.m BMI - 22.55 Temperature - 98.2 F (LOW) Pulse - 88 /min Respiration - 161 /min (HIGH) BP - 144/70 mm(hg) (HIGH) O2 Sat - 92 % (LOW) Pain - 3 Performance Status: 1 - No physically strenuous activity, but ambulatory and able to carry out light or sedentary work (e.g. office work, light house work). (ECOG) Physical Examination: Respiratory - Lungs are clear to auscultation, Cardiovascular - Regular rate and rhythm of heart, Gastrointestinal - Soft, bowel sounds present, Extremities - No visible edema or rash. Lab/Imaging: Test performed on Jan 12, 2020 11:35 Sodium 142 mmol/L Potassium 3.2 mmol/L Chloride 103 mmol/L CO2 29 mmol/L Anion Gap 13.2 BUN 8 mg/dL Creatinine 0.6 mg/dL Cr Clearance (Est) 101.7100 mL/min eGFR 101.0 mL/min Glucose 82 mg/dL Osmolality - Calculated 291 mOsm/kg Calcium 9.4 mg/dL Protein, Total 7.4 g/dL Albumin 3.9 g/dL Globulin 3.5 g/dL Bilirubin, Total 0.3 mg/dL ALT (SGPT) 27 U/L AST (SGOT) 35 U/L Alkaline Phosphatase 253 IU/L WBC 4.9 10 3/uL RBC 3.57 10 6/uL HGB 12.0 g/dL HCT 38.9 % MCV 109.0 fL MCH 33.6 pg MCHC 30.8 g/dL RDW 17.8 % Platelet Count 391 10 3/cmm MPV 9.6 fL Neutrophils 1.52 10 3/uL Lymphocytes 1.9 10 3/uL Monocytes 0.9 10 3/uL Eosinophils 0.6 10 3/uL Basophils 0.1 10 3/uL Neutrophil % 30.9 % Lymphocyte % 38.2 % Monocyte % 17.5 % Eosinophil % 12.0 % Basophils % 1.2 % NRBC % 0 % Test performed on Nov 11, 2019 08:21 Manual Lymphocytes 16.6 % Manual Monocytes 2.3 % Manual Eosinophils 4.4 % Manual Basophils 0.4 % Test performed on Aug 28, 2019 10:55 TSH 3.28 uIU/mL Impression: History of left breast cancer with metastases to left scapula status post bilateral mastectomy and left axillary lymph node dissection followed by radiation therapy to left chest wall and axilla in [address] [facility] in [facility] status post 1 year of Herceptin and paclitaxel and Arimidex for some time status post radiation therapy to left scapula biopsy-proven metastases Medical record obtained from [facility]., MIKHAIL Gray and ER/CA positive HER-2/oneida overexpression positive it shows #1 presentation with abnormal screening mammogram in 2010. Patient underwent neoadjuvant chemotherapy with weekly paclitaxel and Herceptin for 12 cycle from May Treated with neoadjuvant chemotherapy FEC plus Herceptin from August 2010 through October 2010 In November 2010 she undergoes bilateral simple mastectomy with pathology demonstrating pT2 N2 disease Mrs Santamaria completed 1 year of adjuvant Herceptin therapy with adjuvant aromatase inhibitor In October 2011 patient transitioned to single agent tamoxifen due to poor tolerance of aromatase inhibitor therapy In October 2012 patient presented with left scapular pain imaging demonstrates abnormal bones lesion with biopsy notable for ER/CA positive HER-2/oneida overexpressing breast cancer, staging evaluation demonstrated bilateral pulmonary nodules with mediastinal lymphadenopathy On 12/16/2012 patient initiates letrozole plus Herceptin plus PERJETA on clinical trial On 02/22/2015 patient demonstrates subjective progression of disease within lungs On 02/25/2015 initiated on KADCYLA History of metastatic disease status post chemotherapy with different agents on multiple occasions most recent hormonal agent was letrozole 2.5 mg Elevated tumor markers [place] [address] scan of chest abdomen pelvis done on 10/10/2016 showed multiple bilateral pulmonary nodules consistent with metastatic disease multiple lytic lesion including posterior aspect of T12 vertebral body related dissection of much of right side of T10 vertebra and a large lytic lesion involving the roof of the right acetabulum and right iliac wing and focus of due to dissection lesion in right ischium Stable tiny low-attenuation abnormalities within the liver most likely consistent with multiple tiny cysts Pulmonary emphysema 8 ON 09/24/2016 CA 15.3 342.6 CA 27- 29 493.59 Upper mid back pain and right hip pain due to bone metastases questionable cord compression. She did have restaging with PET/CT on 11/03/2016. The PET/CT revealed multiple FGD avid osteolytic metastases in the left scapula, posterior left 9th rib, T10, T12 and the anterior right acetabulum. Multiple FDG avid metastatic pulmonary nodules represented by 1.9 cm nodule in the posterbasal segment of the right lower lobe with an SUV of 5 and a 1.7 cm nodule in the anterrobasal segment of the left lower lobe with an SUV of 5.1. No hepatic or adrenal metastases identified. Mrs Santamaria was referred to [facility] radiation oncology and underwent radiation to the right hip, left scapula, T10-T12 spine. Her pain resolved with the radiation. offered her palliative chemotherapy with Navelbine and Herceptin. She has agreed to a trial of the chemotherapy. CT scan of the chest August 2017 reported disease progression in the chest and evidence of possible hepatic involvement as well as possible metastatic site involving the left 12th rib. PET/CT scan done on 03/02/2017 showed multiple FDG avid metastatic pulmonary nodules represented by 1.9 cm nodule in the posterior basal segment of right lower lobe with SUV 9.6 compared to 5 on prior exam and a 1.7 cm nodule in the anterior basal segment of left lower lobe with SUV of 4.9 compared to 4.1 on prior exam. There were multiple new hepatic metastatic lesions represented by 1.7 cm nodule with SUV of 5.4 in the anterior superior segment right upper lobe. The PET/CT also reported bone metastasis the left anterior superior iliac spine posteriorly right sacroiliac and T10 T12 right acetabulum, left scapula and posterior left eighth rib. MRI scan of C-spine done on 02/28/2017 showed metastatic lesion of C2 vertebral body. Additional foci of metastatic disease may involve C6 and T1 vertebral bodies multiple disc bulging and spondylosis at C5/C6 and C6/C7 with mild anterior impingement Episode of rectal bleed/abdominal pain probably due to diverticulitis/diverticular bleed CT scan of chest abdomen pelvis done on 03/31/2017 showed pulmonary metastatic disease with variable size of some of the lesion since 10/30/2016 some lesions are smaller and other are larger hepatic and bone metastatic disease similar to the prior exam CT PET scan done on 04/27/2017 showed osseous lesion in left half of C1, and right T1 transverse process and left T1 pedicle, the L1 vertebral body, and L2 vertebral body shows no changes. However, pelvic metastatic disease has worsened with SUV 8.2 compared to 4.1 previously but she is status post radiation therapy to her pelvic bones., Multifocal hepatic metastatic disease is progressed , with SUV 9.8 compared to 5.4 earlier, bilateral hypermetabolic pulmonary nodules are unchanged and right hilar malignant node demonstrated progression Started on lapatinib and Xeloda on 06/08/2017 then it was placed on hold due to radiation therapy to left hip pain. Left posterior hip pain due to bone metastases status post radiation to right hip. Status post radiation therapy to C-spine could complete 9 out of 12 recommended doses because of severe radiation-induced pharyngitis , finished on 06/25/2017 Status palliative post radiation to hip, finished on 06/26/2007 Tumor marker CA-27-29 gone up to 1346.70 on 08/20/2017 from 896.45 on 07/04/2017 Lapatinib and Xeloda discontinued on 08/26/2017 and her treatment plan changed to weekly Herceptin and Taxane 3 weeks on and 1 week off with followup PET/CT after the third cycle. She had GI issues with Zometa ( an episode of nausea vomiting and abdominal pain) so she refuses to repeat the Zometa. She will be offered Xgeva 120 mg every month instead of the Zometa. She began her first cycle of Abraxane and Herceptin on 10/09/2017.Till 12/17/2017 at that time Abraxane was discontinued because of intolerance and last dose of Herceptin was given on 12/31/2017 and because of progressive weakness and fatigue this was also discontinued Patient was referred to [facility] she was seen by Dr. Ramirez on 03/31/2018, many clinical trials are available but due to transportation and financial reason patient could not consider any of them. So palliative chemotherapy with erbulin /Herceptin or carboplatin/gemcitabine/Herceptin was recommended. She did discontinue letrozole on 04/07/2018 and it was recommended that she start on weekly carboplatin AUC 2/gemcitabine 1000 mg/m2/Herceptin day 1, 8 and 15 every 28 days. Along with monthly Xgeva. She began her first cycle on 04/15/2018 .Follow-up CT PET scan done on 07/05/2018 showed hepatic metastatic disease has improved when compared with CT PET scan done in April 2017 and index lesion in the right hepatic dome has now significant central necrosis. There was a mixed response to multiple lung nodules, a left upper lobe nodules is unchanged in size at 1.6 cm but has SUV 3.8 compared to 5.6 before similar improvement is present in the posterior right lower lobe nodule and left lung base nodules. However there are new lesions in the right middle and medial right lobes, the 2 new lesions in the medial right lobe have SUV of 289 and right middle lobe measures 2.6 cm with SUV of 6.8. Multiple osseous lesion seen previously were sclerotic and FDG negative. Suspicious uptake is identified in left femoral neck and proximal right femur and L2. Mrs Santamaria continues with Carboplatin, gemcitabine and Herceptin and monthly Xgeva. She does require intermittent support with growth factors to keep her blood counts up in order to stay on the treatment plan. Follow-up CT PET scan done on 10/25/2018 showed multiple hepatic lesions are seen on prior studies on 07/05/2018 or minimally improved in size and now with improved SUV. Mild improvement in bilateral lung nodules both in size and SUV. Mild improvement is noted in multifocal osseous metastatic disease. Follow-up echocardiogram done on 11/07/2018 showed ejection fraction around 60%. She continued with weekly Carboplatin/gemcitabine and Herceptin. She has completed 11 full cycles and had restaging imaging on 04/21/2019. She had a PET/CT at [facility] on 04/21/2019. The PET/CT apparently was not compared to the scan she had on 10/25/2018. A review/comparison and an addended report has been requested. However in the interim we discussed the findings of her April 21, 2019 PET in relation to the October 25, 2018 PET. There were multiple pulmonary nodules present with the largest at the right base posteromedially measuring 4.9 x 2 point centimeters with a maximum SUV of 6.71. The results of that SUV on the October 25, 2018 report is somewhat blurry but looks to be 8.4 possibly 6.4 but indicates that the pulmonary nodules are relatively stable. The maximum SUV in the liver was 3.31 and on the October 2018 scan was 5.1. did compare the reports and felt that Soledad had had some improvement in her overall disease. She continued with chemotherapy with carboplatin gemcitabine and Herceptin. As her recent PET scan confirms disease progression she will discontinue her current chemo regimen with Herceptin/carboplatin/gemcitabine and prior approval was requested for Fam Trastuzumab deruxtecan (Enhertu). Dr Pitts had discussed the side effects possible benefits associated with Enhertu including but not limited to allergic reaction, nausea vomiting, fatigue, hair loss,, pneumonitis, neuropathy, bone marrow suppression amongst others. Mrs Santamaria has consented to treatment and we do have approval from insurance. BREAST CANCER TREATMENT HISTORY SUMMARY Paclitaxel Herceptin for 12 cycles from May 2010 to August 2010 FEC and Herceptin through October 2010 Aromatase inhibitor began in October 2010 Bilateral mastectomies November 2010???postmastectomy radiation completed 03/21/2011 Tamoxifen 2013 Clinical trial with Herceptin, Perjeta and letrozole beginning November 2012 through February 2015 Kadcyla began in February 2015 but was stopped after 2-3 doses due to intolerance Radiation to the right hip, left scapula, T10-T12 spine in October 2016. She is also started on lapatinib and Xeloda which continued through August 2017. She had elevation of tumor markers and at that time was switched to Herceptin and Abraxane on 10/09/2017. She stopped the Abraxane after her last dose on 12/17/2017 because of intolerance and Herceptin was then given on 12/31/2017. She was referred to [facility] for possible clinical trials but due to transportation and financial reasons she could not consider any of them. She began palliative chemotherapy with carboplatin gemcitabine and trastuzumab on 04/15/2018. She was also getting monthly Xgeva. She is remained on this regimen until her most recent PET/CT from October 2019 which is show disease progression. She will be transitioned to Enhertu (11/05/2019). Plan: Discussed with patient regarding her labs white blood count 4.9 hemoglobin 11.8 hematocrit 37.1 platelets 363,000 CMP within normal limit except potassium 3.4 and follow-up CT PET scan finding which shows good response Clinically, patient doing well with no new signs symptom suggestive of disease progression, and follow-up CT PET scan done after 5 doses of Enhertu showed excellent response e.g. lung, liver and bone mets showed excellent response. And she is tolerating Enhertu well but with expected side effect. We will proceed with the next dose today and then she will return to clinic in 3 weeks with CBC CMP. As per dysuria and foul-smelling urine is concerned could be due to urine tract infection but patient not running any fever, will check a urinalysis and if it shows any evidence of infection will consider oral antibiotics. Signed By: Kortney Pitts M.D. <<Signature on File>>
[2020-02-29] MEDS: sodium chloride 0.9% 250 ML 999 ML IV (09:00)
[2020-02-29] MEDS: palonosetron 0.25 mg/5 mL SDV IVP (09:00)
== END 2020-03-07 12:00 | disposition home or self-care (01) ==
LOC: ONCMED 05:25
PROVIDERS: PCP Nurse Practitioner Family; Visit Provider Internal Medicine Hematology & Oncology
DX: Z51.11 Encounter for antineoplastic chemotherapy (principal); C50.512 Malignant neoplasm of lower-outer quadrant of left female breast; Z17.0 Estrogen receptor positive status [ER+]; C79.51 Secondary malignant neoplasm of bone; C78.01 Secondary malignant neoplasm of right lung; C78.02 Secondary malignant neoplasm of left lung; D61.810 Antineoplastic chemotherapy induced pancytopenia; T45.1X5A Adverse effect of antineoplastic and immunosuppressive drugs, initial encounter; R97.8 Other abnormal tumor markers; J43.9 Emphysema, unspecified; Z92.3 Personal history of irradiation; Z79.811 Long term (current) use of aromatase inhibitors; Z79.899 Other long term (current) drug therapy
CPT/HCPCS: 80053; 81001; 85025; 87077; 87086; 87186; 96367; 96372; 96375; 96413; 99214; J0897; J1100; J2469; J7050; J9358

== ENCOUNTER 2020-03-07 13:54 | Emergency (ER) | payer MEDICARE, SELFPAY ==
[2020-03-07 13:57] VITALS: BP 150/80; PULSE 91; RESP 20; TEMP 36.8; O2SAT 92; BMI 21.9
--- NOTE | 2020-03-07 14:48 | ECG_ITS ---
[facility] Test Date: 2020-03-07 Pat Name: Soledad Santamaria Department: Room: Gender: Female Rn Otolaryngology: : 1955 Requested By: Mike Fontenot Order Number: [id number] Bisi MD: Mino Stokes M.D. Measurements Intervals [place] Rate: 78 P: 90 [place]: 172 QRS: 66 QRSD: 82 T: 54 QT: 406 QTc: 463 Interpretive Statements SINUS RHYTHM MINIMAL ST DEPRESSION [0.025+ mV ST DEPRESSION] Compared to ECG 07/30/2018 21:24:02 ST (T wave) deviation now present Sinus tachycardia no longer present T-wave abnormality no longer present Electronically Signed On 03-07-2020 18:47:25 INSPECTION ENGINEER by Mino Stokes M.D. [id number]
--- NOTE | 2020-03-07 14:54 | XRR_ITS ---
PROCEDURE INFORMATION: Exam: XR Chest, 1 View Exam date and time: 03/07/2020 3:07 PM Age: 64 years old Clinical indication: Dyspnea TECHNIQUE: Imaging protocol: XR of the chest Views: 1 view. COMPARISON: [place] Chest 1 [place] [id number] 07/30/2018 9:29 PM FINDINGS: Tubes, catheters and devices: There is a right central line present extending to the SVC Lungs: Left upper lobe parenchymal density is seen new since prior examination possible pneumonia Pleural space: Unremarkable. No pleural effusion. No pneumothorax. Heart/Mediastinum: Unremarkable. No cardiomegaly. Bones/joints: Unremarkable. XR/XR chest 1V portable [id number] IMPRESSION: 1. Left upper lobe parenchymal density possible pneumonia 2. Right central line extends to the SVC
--- NOTE | 2020-03-07 14:54 | W.ED.NAVMDI ---
HPI - Nausea/Vomiting/Diarrhea General: Chief complaint: Headache Stated complaint: WEAK, N/V, H/A, STATES BLOOD COUNTS LOW PTRACY VANCE Time Seen by Provider: 03/07/20 14:33 History of Present Illness: HPI Narrative: The patient is a 64-year-old female with past medical history of metastatic breast cancer for the past 12 years. She is on chemotherapy every 3 weeks and received it 8 days ago. For the past 4 days she has been having increasing nausea and dry heaving. She says she is able to keep solids and liquids down but it feels like she is dry heaving all the time. She thinks her blood count could possibly be low also as this has happened before. She says she needs Zofran to help with her nausea. She is also suffering from a UTI and just finished a course of Macrobid today. MD elicited complaint: nausea Onset (ago): day(s) (4) Associated nausea: Yes Associated abdominal pain: No Location of pain: None Severity: mild Quality: cramping Associated symtoms: Reports nausea; Denies anxiety, change in vision, chest pain, dizziness, fatigue, headache(s) or palpitations Review of Systems General: Reports: 10 or more systems reviewed and unremarkable except in HPI and below Const: Denies: fatigue Eyes: Denies: change in vision, blurry vision or eye redness ENMT: Denies: throat pain, swelling of lips/tongue, ear or mastoid pain or nasal congestion Card: Denies: chest pain, palpitations, irregular heart rhythm, edema, dyspnea on exertion or orthopnea Resp: Denies: dyspnea, productive cough or non-productive cough GI: Reports: nausea; Denies: abdominal pain, vomiting or diarrhea : Denies: flank pain, difficulty voiding, urinary frequency or urinary urgency Musc: Denies: neck pain, back pain, extremity pain, joint pain, joint redness, limited range of motion or muscle weakness Skin/Breast: Denies: rash, pruritus, erythema, skin pain or skin tenderness Neuro: Denies: headache(s), numbness in extremities, weakness in extremities, sensory changes, difficulty walking, dizziness, confusion or Slurred speech present Psych: Denies: anxiety or depression Endo: Denies: polyuria All/Imm: Denies: urticaria, throat swelling or tongue swelling PFSH ED PFSH: Medical History (Updated 03/07/20 @ 20:09 by Mike Fontenot MD) Diverticulitis GERD (gastroesophageal reflux disease) Metastatic breast cancer Osteoarthritis Peripheral neuropathy Surgical History History of cholecystectomy History of hysterectomy History of mastectomy History of tonsillectomy Port-A-Cath in place Right subclavian Family History Father Heart disease Mother Heart disease Social History Smoking and tobacco status: former smoker Alcohol intake: never Household members: spouse Marital status: Current occupational status: disabled History of recent travel: No Physical Exam Const: COMMON NORMALS: no acute distress, average body habitus, patient oriented x3, no limitations, healthy appearing, alert and well nourished GENERAL APPEARANCE: cooperative, comfortable, well kempt and well developed ORIENTATION/CONSCIOUSNESS: Yes awake, Yes oriented to person, Yes oriented to place and Yes oriented to time HENMT: COMMON NORMALS: normocephalic, external ears normal and Normal external nose present HEAD & SCALP: normal to inspection and normocephalic NOSE: Normal external nose present EXTERNAL EAR: Yes external ears normal MOUTH: Normal oral and palatal mucosa present THROAT: posterior oropharynx normal Eye: COMMON NORMALS: Equal, round and reactive pupils present and EOMs intact bilaterally GENERAL EYE: appearance normal, both eyes and all related structures PUPIL: Yes Equal, round and reactive pupils present Neck/C-Spine: COMMON NORMALS: full ROM, no lymphadenopathy, no meningeal signs and no JVD GENERAL: Yes normal visual inspection Lymph: LYMPHATIC: no lymphadenopathy noted Chest: COMMONS NORMALS: normal inspection of the chest and normal palpation of entire chest wall Resp: COMMON NORMALS: normal respiratory effort, No retractions, No use of accessory muscles, clear to auscultation bilaterally and percussion normal EFFORT & INSPECTION: Yes able to speak in complete sentences AUSCULTATION: clear to auscultation bilaterally PERCUSSION: percussion normal Cardio: COMMON NORMALS: no JVD, regular rate, regular rhythm, S1 normal heart sound present, S2 normal heart sound present and Peripheral pulses 2+ throughout RATE: regular rate RHYTHM: regular rhythm HEART SOUNDS: S1 normal heart sound present and S2 normal heart sound present PERIPHERAL PULSES: Peripheral pulses 2+ throughout GI: COMMON NORMALS: Normal to inspection, nondistended, normoactive bowel sounds present, Soft to palpation, non-tender and no masses INSPECTION: Yes normal to inspection PALPATION: Yes Soft to palpation : COMMON NORMALS: Yes no CVA tenderness BLADDER/KIDNEY EXAM: Yes no CVA tenderness Back/Pelvis: COMMON NORMALS: no CVA tenderness, thoracic and lumbar spine normal to inspection, no thoracic nor lumbar tenderness and thoraco-lumbar ROM normal Extremity: COMMON NORMALS: normal to inspection, full ROM, capillary refill normal, no joint enlargement and no pedal edema GENERAL: Yes normal exam except as noted Neuro: COMMON NORMALS: patient oriented x3, CN's II-XII intact bilaterally, moves all extremities, no focal motor deficits, no sensory deficits noted and gait normal SENSORIUM/ORIENTATION: Yes alert, Yes oriented to person, Yes oriented to place and Yes oriented to time MENINGEAL SIGNS: Yes no meningeal signs Psych: COMMON NORMALS: mental status grossly normal, Normal thought process present, cooperative, normal affect and speech normal APPEARANCE: Yes well kempt ATTITUDE: Yes calm SPEECH: Yes normal speech THOUGHT PROCESS: Normal thought process present Skin: COMMON NORMALS: no rashes or lesions noted GENERAL SKIN EXAM: no rashes or lesions noted Course Vital Signs: Vital signs: Vital Signs Temperature 98.2 F 03/07/20 13:57 Pulse Rate 91 03/07/20 13:57 Respiratory Rate 20 H 03/07/20 13:57 Blood Pressure 150/80 03/07/20 13:57 Pulse Oximetry 92 03/07/20 13:57 MDM - Nausea/Vomiting/Diarrhea MDM Narrative: Medical decision making narrative: The patient was given IV fluids and Zofran. A CT was ordered to further evaluate her left upper lobe lung density seen on the chest x-ray. CT angiogram was ordered and I was providing critical care in another room. She refused to wait for the CT and signed out AGAINST MEDICAL ADVICE. Nursing staff told her that she should stay however she signed and left. I discussed with her when I ordered the CT that there is a possibility this could be cancer. Lab Data: Labs: Lab Results 03/07/20 03/07/20 03/07/20 Range/Units 14:49 14:49 14:49 WBC 7.3 (4.0-10.0) 10^3/ uL RBC 3.66 L (4.1-5.3) 10^6/u L Hgb 12.7 (11.5-15.3) g/dL Hct 39.1 (37.0-47.0) % MCV 106.8 H (81-99) fL MCH 34.7 H (28.0-34.0) pg MCHC 32.5 (30.0-36.0) g/dL RDW 15.7 H (12.1-15.1) % Plt Count 222 (130-400) 10^3/c mm MPV 9.9 (7.4-10.4) fL Neut % (Auto) 60.9 % Lymph % (Auto) 26.5 % Woodruff % (Auto) 6.6 % Eos % (Auto) 4.8 % Baso % (Auto) 0.6 % Neut # (Auto) 4.43 (1.8-7.7) 10^3/u L Lymph # (Auto) 1.9 (0.8-4.8) 10^3/u L Woodruff # (Auto) 0.5 (0.2-0.9) 10^3/u L Eos # (Auto) 0.4 (0.0-0.8) 10^3/u L Baso # (Auto) 0.0 (0.0-0.1) 10^3/u L Nucleated RBC % (a uto) 0 % Nucleated RBCs # 0.0 /100WBC Sodium 137 (136-145) mmol/L Potassium 3.5 (3.5-5.1) mmol/L Chloride 98 (98-107) mmol/L Carbon Dioxide 28 (22-29) mmol/L Anion Gap 14.5 (5-19) BUN 11 (8-23) mg/dL Creatinine 0.9 (0.5-0.9) mg/dL GFR Calculation 63.2 L (90-130) mL/min Glucose 95 (65-115) mg/dL Calculated Osmolal ity 283 L (285-295) mOsm/k g Lactate 1.5 (0.5-2.2) mmol/L Calcium 9.4 (8.5-10.5) mg/dL Total Bilirubin 0.7 (0.15-1.2) mg/dL AST 61 H (0-32) U/L ALT 47 H (0-33) U/L Alkaline Phosphata se 313 H (35-105) IU/L Troponin T Baselin e (0-10) ng/L NT-Pro-B Natriuret Pep 61 (0-125) pg/mL Total Protein 7.6 (6.6-8.7) g/dL Albumin 3.7 (3.5-5.2) g/dL Globulin 3.9 (1.3-4.6) g/dL Urine Color (Yellow) Urine Appearance (CLEAR) Urine pH (5-7) Ur Specific Gravit y (1.005-1.030) Urine Protein (Negative) Urine Glucose (UA) (Normal) Urine Ketones (Negative) Urine Blood (Negative) Urine Nitrate (Negative) Urine Bilirubin (Negative) Urine Urobilinogen (Negative) mg/dL Ur Leukocyte Alcira ase (Negative) 03/07/20 03/07/20 Range/Units 14:49 15:35 WBC (4.0-10.0) 10^3/ uL RBC (4.1-5.3) 10^6/u L Hgb (11.5-15.3) g/dL Hct (37.0-47.0) % MCV (81-99) fL MCH (28.0-34.0) pg MCHC (30.0-36.0) g/dL RDW (12.1-15.1) % Plt Count (130-400) 10^3/c mm MPV (7.4-10.4) fL Neut % (Auto) % Lymph % (Auto) % Woodruff % (Auto) % Eos % (Auto) % Baso % (Auto) % Neut # (Auto) (1.8-7.7) 10^3/u L Lymph # (Auto) (0.8-4.8) 10^3/u L Woodruff # (Auto) (0.2-0.9) 10^3/u L Eos # (Auto) (0.0-0.8) 10^3/u L Baso # (Auto) (0.0-0.1) 10^3/u L Nucleated RBC % (a uto) % Nucleated RBCs # /100WBC Sodium (136-145) mmol/L Potassium (3.5-5.1) mmol/L Chloride (98-107) mmol/L Carbon Dioxide (22-29) mmol/L Anion Gap (5-19) BUN (8-23) mg/dL Creatinine (0.5-0.9) mg/dL GFR Calculation (90-130) mL/min Glucose (65-115) mg/dL Calculated Osmolal ity (285-295) mOsm/k g Lactate (0.5-2.2) mmol/L Calcium (8.5-10.5) mg/dL Total Bilirubin (0.15-1.2) mg/dL AST (0-32) U/L ALT (0-33) U/L Alkaline Phosphata se (35-105) IU/L Troponin T Baselin e 6 (0-10) ng/L NT-Pro-B Natriuret Pep (0-125) pg/mL Total Protein (6.6-8.7) g/dL Albumin (3.5-5.2) g/dL Globulin (1.3-4.6) g/dL Urine Color Yellow (Yellow) Urine Appearance Clear (CLEAR) Urine pH 5 (5-7) Ur Specific Gravit y 1.015 (1.005-1.030) Urine Protein Neg (Negative) Urine Glucose (UA) Norm (Normal) Urine Ketones Negative (Negative) Urine Blood Neg (Negative) Urine Nitrate Negative (Negative) Urine Bilirubin Neg (Negative) Urine Urobilinogen Norm (Negative) mg/dL Ur Leukocyte Alcira ase Negative (Negative) Discharge Plan Discharge Patient Disposition: Left Against Medical Advice Clinical Impression: Dehydration, Nausea, Mass in chest Condition: Stable Prescriptions: No Action ondansetron HCl 8 mg tablet 8 mg PO TID PRN (Reason: Nausea And Vomiting) RF: 0 Excedrin Migraine 250-250-65 mg Tablet 2 tab PO PRN RF: 0 nitrofurantoin monohyd/m-cryst 100 mg capsule 100 mg PO BID RF: 0 Geritol Complete 16 mg iron- 0.38 mg Tablet 1 tab PO DAILY RF: 0 Referrals: Venkatesh,TRICIA, CHILDREN'S LITERATURE PROFESSOR [Primary Care Provider] - Coding Level of Care Code ED [employer] for [facility] Fwd Exam Comprehensive
[2020-03-07 15:00] LABS: Basophils % 0.6 %; Eosinophils # 0.4 10^3/uL (0.0-0.8); Eosinophils % 4.8 %; Hematocrit 39.1 % (37.0-47.0); Hemoglobin 12.7 g/dL (11.5-15.3); Lymphocytes # 1.9 10^3/uL (0.8-4.8); Lymphocytes % 26.5 %; Mean Corpuscular HGB Conc 32.5 g/dL (30.0-36.0); Mean Corpuscular Hemoglobin 34.7 pg (28.0-34.0); Mean Corpuscular Volume 106.8 fL (81-99); Mean Platelet Volume 9.9 fL (7.4-10.4); Monocytes # 0.5 10^3/uL (0.2-0.9); Monocytes % 6.6 %; Neutrophils # 4.43 10^3/uL (1.8-7.7); Neutrophils % 60.9 %; Nucleated Red Blood Cells % 0 %; Platelet Count 222 10^3/cmm (130-400); Red Blood Count 3.66 10^6/uL (4.1-5.3); Red Cell Distribution Width 15.7 % (12.1-15.1); White Blood Count 7.3 10^3/uL (4.0-10.0)
[2020-03-07] MEDS: sodium chloride 0.9% 1,000 ML 999 ML IV (15:00)
[2020-03-07] MEDS: ondansetron 2 mg/ML SDV 2 mL 4 MG IVP (15:01)
[2020-03-07 15:25] LABS: Lactate (Lactic Acid level) 1.5 mmol/L (0.5-2.2)
[2020-03-07 15:32] LABS: Troponin(5th) Baseline 6 ng/L (0-10)
[2020-03-07] MEDS: acetaminophen 325 mg Tablet 650 MG PO (15:36)
[2020-03-07 15:41] LABS: Alanine Aminotransferase 47 U/L (0-33); Albumin Level 3.7 g/dL (3.5-5.2); Alkaline Phosphatase 313 IU/L (35-105); Anion Gap 14.5 (5-19); Aspartate Amino Transferase 61 U/L (0-32); Blood Urea Nitrogen 11 mg/dL (8-23); Calcium 9.4 mg/dL (8.5-10.5); Carbon Dioxide 28 mmol/L (22-29); Chloride 98 mmol/L (98-107); Creatinine Clr Calc Pharmacy 62.9867; Globulin 3.9 g/dL (1.3-4.6); Glomerular Filtration Rate 63.2 mL/min (90-130); Glucose 95 mg/dL (65-115); NT Pro B Type Natriuretic Pept 61 pg/mL (0-125); Osmolality Calculated 283 mOsm/kg (285-295); Potassium 3.5 mmol/L (3.5-5.1); Sodium 137 mmol/L (136-145); Total Bilirubin 0.7 mg/dL (0.15-1.2); Total Protein 7.6 g/dL (6.6-8.7)
[2020-03-07 15:42] LABS: Add Urine Microscopic? NO
[2020-03-07 15:45] LABS: Bilirubin Urine Neg (Negative); Blood Urine Neg (Negative); Glucose Urine UA Norm (Normal); Ketones Urine Negative (Negative); Leukocyte Esterase Urine Negative (Negative); Nitrate Urine Negative (Negative); Protein Urine Neg (Negative); Specific Gravity, Urine 1.015 (1.005-1.030); Urine Appearance Clear (CLEAR); Urine Color Yellow (Yellow); Urobilinogen Urine Norm (Negative); pH Urine 5 (5-7)
== END 2020-03-07 19:08 | disposition left against medical advice (07) ==
PROVIDERS: Nurse Practitioner Family; Emergency Provider Family Medicine; PCP Nurse Practitioner Family
DX: R22.2 Localized swelling, mass and lump, trunk (principal); E86.0 Dehydration; R11.0 Nausea; Z85.3 Personal history of malignant neoplasm of breast; Z87.891 Personal history of nicotine dependence; Z79.899 Other long term (current) drug therapy
CPT/HCPCS: 12345; 36415; 71045; 80053; 81003; 83605; 83880; 84484; 85025; 87040; 93005; 96361; 96374; 99282; 99283; J2405; J7030

== ENCOUNTER 2020-03-18 10:10 | Outpatient (RCR) | payer MEDICARE, SELFPAY ==
[2020-03-18 12:12] LABS: Eosinophils # 0.3 10^3/uL (0.0-0.8); Hematocrit 36.3 % (37.0-47.0); Hemoglobin 11.6 g/dL (11.5-15.3); Lymphocytes # 1.3 10^3/uL (0.8-4.8); Lymphocytes % 33.2 %; Mean Corpuscular Hemoglobin 35.5 pg (28.0-34.0); Mean Platelet Volume 9.8 fL (7.4-10.4); Monocytes # 0.8 10^3/uL (0.2-0.9); Monocytes % 20.5 %; Neutrophils # 1.46 10^3/uL (1.8-7.7); Neutrophils % 37.8 %; Nucleated Red Blood Cells % 0 %; Platelet Count 333 10^3/cmm (130-400); Red Blood Count 3.27 10^6/uL (4.1-5.3); Red Cell Distribution Width 17.2 % (12.1-15.1); White Blood Count 3.9 10^3/uL (4.0-10.0)
[2020-03-18 13:15] LABS: Alanine Aminotransferase 25 U/L (0-33); Albumin Level 3.6 g/dL (3.5-5.2); Alkaline Phosphatase 285 IU/L (35-105); Anion Gap 14.2 (5-19); Aspartate Amino Transferase 38 U/L (0-32); Blood Urea Nitrogen 7 mg/dL (8-23); Calcium 8.2 mg/dL (8.5-10.5); Carbon Dioxide 27 mmol/L (22-29); Chloride 103 mmol/L (98-107); Globulin 2.9 g/dL (1.3-4.6); Glucose 88 mg/dL (65-115); Osmolality Calculated 289 mOsm/kg (285-295); Potassium 3.2 mmol/L (3.5-5.1); Sodium 141 mmol/L (136-145); Total Bilirubin 0.4 mg/dL (0.15-1.2); Total Protein 6.5 g/dL (6.6-8.7)
[2020-03-18 13:30] LABS: Vitamin B12 685 pg/mL (232-1245)
== END 2020-03-20 23:59 | disposition home or self-care (01) ==
LOC: ONCMED 10:10
PROVIDERS: PCP Nurse Practitioner Family; Visit Provider Internal Medicine Hematology & Oncology
DX: C78.00 Secondary malignant neoplasm of unspecified lung (principal); R53.83 Other fatigue; C79.51 Secondary malignant neoplasm of bone; C50.512 Malignant neoplasm of lower-outer quadrant of left female breast; D61.818 Other pancytopenia; T45.1X5A Adverse effect of antineoplastic and immunosuppressive drugs, initial encounter; Z92.3 Personal history of irradiation; R97.8 Other abnormal tumor markers
CPT/HCPCS: 80053; 82607; 85025

== ENCOUNTER 2020-03-29 05:32 | Outpatient (RCR) | payer MEDICARE, SELFPAY ==
--- NOTE | 2020-03-21 17:10 | ONC FU_ITS ---
Dr. Pitts follow up note Patient: Soledad Santamaria Unit #: [id number]: 1955 Dicatated By: Kortney Pitts M.D.Date of Visit:Mar 21, 2020 Onc Med Follow-up/Prog Note History of Present Illness: Mrs. Santamaria is a 64-year-old female with history of left breast carcinoma with bone metastasis. She presented with an abnormal mammogram in 2010. She had apparently had detected an left-sided breast mass in late 2009. She was referred to Dr Gadiel Reed @ [facility] in [place], [place]. In April 2010, she underwent needle core biopsy of the left breast that did confirm invasive ductal carcinoma histological grade 2/3, ER+ MS+ and Her 2 [place] immunostain was 3+. She also had biopsy of a left axillary lymph node that was positive for invasive carcinoma with no lymphoid tissue identified. Her exam prior to chemo revealed a 3 cm mass in the extreme upper outer aspect of the left breast and multiple palpable enlarged lymph nodes-the largest was 2 cm and mobile.. Further workup included a breast MRI which did show biopsy proven malignancy in the left upper outer quadrant measuring 3.3 cm with associated axillary and subpectoral adenopathy. She had multiple satellite nodes with the largest measuring 7 cm. She did undergo MRI guided biopsy on June 08, 2010, which did report invasive cancer. She did have CT of the chest and a bone scan which did not show distant disease,. However, there was an enlarged lymph node in the subcutaneous tissues posterior to the left scapula and was biopsied on May 26, 2010 and was negative for malignancy. She under went neoadjuvant chemotherapy with weekly paclitaxel and Herceptin for 12 cycles from May 2010 to August of 2010 followed by FEC and Herceptin through October 2010. She completed 1 year of Herceptin in May 2011 during which time she was also taking an AI. She did have febrile neutropenia requiring admission in September 2010. She underwent bilateral mastectomies( for abnormal mammogram findings in the right breast) at [facility] in [facility] in November 2010. She did have post mastectomy radiation completed on 03/21/2011. She then underwent reconstruction with bilateral breast implants. Unfortunately in November 2011, the left implant became infected and had to be removed. During work up of the implant abnormality she has found to have a metastatic lesion in her left scapula. She did not have any problems until November of 2012 at which time she was having generalized bone pain, which she thought was a combination of Actonel and Anastrozole. The pain did not improve with stopping these medications. She was transitioned to single agent Tamoxifen. A bone scan revealed increased activity along the lateral margin of the left scapula suspicious of osseous metastatic disease when compared to the bone scan from November 2011. This lesion was biopsied on 12/01/2012 and revealed metastatic disease consistent with the breast primary. She did not have radiation at that time as she was not having significant pain. Mrs Santamaria was restaged and found to have diffuse pulmonary nodules and mediastinal lymphadenopathy and in November 2012, she was enrolled in a clinical trial with Herceptin. Perjeta and Letrozole. She had restaging in March 2014 that revealed slight progression of her pulmonary nodules which did not meet criteria for end point results of the clinical trial and was taken off the trial. Her bone scan was reported as stable. She transferred her care to [facility] in [place], [place] to the care of Dr Mehran Jacobson III in May 2014 due to the difficulty traveling to [facility]. The treatment of letrozole, Herceptin and Perjeta was continued until she disease progression and was changed to Kadcyla in February 2015 after restaging imaging revealed disease progression.And she could not tolerate and it was discontinued after 2 or 3 doses. INTERIM HISTORY: Mrs Santamaria was referred to us in October 2016 for followup at which time, Mrs Santamaria was having right upper back pain, left chest wall pain and right groin pain. She did have restaging with PET/CT on 11/03/2016. The PET/CT revealed multiple FGD avid osteolytic metastases in the left scapula, posterior left 9th rib, T10, T12 and the anterior right acetabulum. Multiple FDG avid metastatic pulmonary nodules represented by 1.9 cm nodule in the posterbasal segment of the right lower lobe with an SUV of 5 and a 1.7 cm nodule in the anterrobasal segment of the left lower lobe with an SUV of 5.1. No hepatic or adrenal metastases identified. Mrs Santamaria was referred to [facility] radiation oncology and underwent radiation to the right hip, left scapula, T10-T12 spine. Her pain resolved with the radiation, offered her palliative chemotherapy with Navelbine and Herceptin. She had agreed to a trial of the chemotherapy. Follow-up CT PET scan showed disease progression chemotherapy was discontinued and she was referred to radiation oncology for palliative radiation therapy. After this cycle of radiation therapy, she was started on lapatinib and Xeloda. She was tolerating it well but she was referred to radiation for C-spine metastases management. At that time her chemotherapy was put on hold. She developed right hip pain for which she received palliative radiation therapy to the 06/25/2017. The lapatinib and Xeloda was restarted but her follow-up tumor markers showed evidence of disease progression as the CA-27-29 gone up to 1346.70 on 08/20/2017 compared to 896.45 on 07/04/2017. Her chemotherapy with Xeloda and lapatinib was discontinued and decided to switch her to weekly Herceptin and Taxane , patient doesn't want take steroids so we recommended Herceptin and Abraxane combination. She did develop nausea vomiting abdominal pain with her last dose of Zometa and doesn't want to take Zometa anymore. We will switch her to Xgeva. There was delay in getting started with the Herceptin/Abraxane. She apparently had positive TB test which required workup and eventually was found to be a false positive. She began her first cycle of Herceptin and Abraxane on 10/09/2017.Last dose of Abraxane/Herceptin was given on 12/17/2017 and because of intolerance Abraxane was discontinued and last dose of Herceptin was given on 12/31/2017 Mrs Santamaria was seen by Dr. Ramirez, oncologist at [facility], for clinical trial and many clinical trials available but due to transportation and financial reasons, patient could not consider any of them. Palliative chemotherapy with carboplatin/gemcitabine/Herceptin or eribulin /Herceptin was recommended. Patient had bone scan and CT scan of chest abdomen done at [facility] which showed widespread metastatic disease. She began chemotherapy with weekly carboplatin, gemcitabine and trastuzumab on 04/15/2018 Follow-up CT PET scan done on 07/05/2018 showed improvement in hepatic metastatic disease since April 2017 study Mixed response to multiple bilateral pulmonary lesion Reactive marrow with splenic activity Osseous metastatic disease seen on April 2017 study is sclerotic and FDG negative Mrs Santamaria was admitted to hospital with abdominal pain and diagnosed with diverticulitis treated successfully with antibiotics and during this time, CT scans of chest abdomen pelvis were done on 07/30/2018 . The scans showed extensive pulmonary metastases and hepatic metastases and bone metastases, stable when compared with CT PET scan done in June 2018. She continued with treatment with carboplatin/gemcitabine/Herceptin. Follow-up CT PET scan done on 10/25/2018 showed mild improvement in hepatic, pulmonary and osseous metastatic disease. She has continued with chemotherapy with weekly Carboplatin, gemcitabine and Herceptin. She is receiving Neupogen support on and Saturday after her treatment on Saturday. She was getting the Neupogen at [place], [place]. She tolerated this plan well. She continues to have exertional shortness of breath but states it is no worse than what is has been but it is no better either. She denies any angina type pain but thinks she may have palpatations once in a while with the shortness of breath. She denies orthopnea. She denies any cough. She does have a very strong family history of CAD-both parents with her father's first [place] in his 30's and both brothers have CAD. She has never had a diagnosis of CAD. She did have an echocardiogram on 11/07/2018 that reported EF of 60%-unchanged from previous echo. She reported she had a bug bite on her right breast reconstruction site around where the nipple should be. She states it presented as a big blister then it popped and then formed a scabbed area but no drainage. She had been applying triple antibotic ointment to it. She was referred to plastic surgery at [facility] and ulimately underwent right breast implant removal in December 2018, as per patient and there was no evidence of breast cancer in the specimen. Her chemotherapy was delayed because of dental procedure from 12/30/2018 to 02/04/2019. She resumed treatment on 02/04/2019. Echocardiogram done on 03/09/2019 showed Ejection fraction was 68%. Mrs Santamaria underwent restaging PET/Ct on 04/21/2019. The PET/CT apparently was not compared to the scan she had on 10/25/2018. A review/comparison and an addended report has been requested. However in the interim we discussed the findings of her April 21, 2019 PET in relation to the October 25, 2018 PET. There were multiple pulmonary nodules present with the largest at the right base posteromedially measuring 4.9 x 2 point centimeters with a maximum SUV of 6.71. The results of that SUV on the October 25, 2018 report is somewhat blurry but looks to be 8.4 possibly 6.4 but indicates that the pulmonary nodules are relatively stable. The maximum SUV in the liver was 3.31 and on the October 2018 scan was 5.1. did compare the reports and felt that Soledad had had some improvement in her overall disease. We of course are waiting for the final review and updated report. These findings have been discussed with Mrs Santamaria she understands that it will be compared with the one in October. She has had persistent right arm numbness and has an appointment with Dr Matthew soto for followup on that. She now has noticed right leg numbness. It comes and goes but seems to be lasting longer when it does come. She has had no TIA symptoms. MRI scan of the head done on 05/07/2019 showed no evidence of brain metastases. Due to hyperintense enhancing 9 x 6 mm intrapituitary lesion in the left aspect of pitiutary. Normal optic chasm. Slight [id number] mass effect on the infundibulum. Consistent with a pituitary adenoma. 10 mm metastatic C2 vertebral body lesions likely previously treated. She has continued with carboplatin, gemcitabine and Herceptin. She is also getting monthly Xgeva. Echocardiogram done on November 07, 2018 showed ejection fraction around 65% and appears unchanged from before Echocardiogram done on September 24, 2019 showed ejection fraction 55 -60% CT PET scan done on October 14, 2019 showed increasing metabolism of existing pulmonary nodules e.g. dominant pulmonary nodule within the medial right lower lobe with SUV of 8.3 compared to 6.7 in April 2019 and medial left lower lobe nodule is 1.4 x 1.3 cm with SUV 7 compared to 1.1 x 4 cm with SUV of 2.3 but no new lung nodule In abdomen increase in size of dominant cyst within central portion of liver measuring 6.7 x 5.1 with SUV of 8.1 compared to 4.8 by with SUV of 6 there is a new hypermetabolic lesion within the right lower lobe of the liver, size 0.9 cm with maximum SUV 6 increasing hypermetabolic activity in the existing osseous metastasis without new lesion identified e.g. in the sacrum SUV 6.9 compared to 4.6 previously. Due to the disease progression,she was recommended further treatment with Enhertu (fam-trastuzumab deruxtecan) an anti-HER2; monoclonal antibody; antineoplastic agent, topoisomerase I inhibitor. She began her first cycle on 11/05/2019 .Follow-up CT PET scan done after 5 doses of Enhertu on February 16, 2020 showed good response lung, liver and osseous lesion have all improved, new scattered lung and mediastinal findings may reflect inflammatory changes only. Came for follow-up, denies any specific complaint except generalized weakness and fatigue as per patient she went to [facility] ER on March 07, 2020 with nausea, dry heaving and headache, she was treated with supportive care hydration and chest x-ray was done which showed left upper lobe parenchymal density possible pneumonia, but patient was unhappy with ER physician so left AMA. Today denies any fever or chills denies any nausea or vomiting denies any diarrhea or constipation but generalized weakness and fatigue but improving as per patient she was also constipated and had a good BM with a laxative and felt better, headaches resolved nausea vomiting resolved overall feeling better now Medications: Claritin 1 Tablet (of 10 mg) Oral daily, Magnesium 1 Tablet Oral daily PRN, Multivitamin Adults 1 Tablet Oral daily PRN, Potassium 1 Tablet (of 99 mg) Oral daily PRN, Prevacid 1 Capsule (of 30 mg) Capsule Delayed Release Oral b.i.d., Vitamin C 1 Tablet Oral daily PRN Allergies: Codeine Sulfate Review of Systems: Review of Systems is not available for this patient. Vital Signs: Performed on Mar 21, 2020 12:46 Height - 67.00 in Weight - 141.4 lbs (LOW) BSA - 1.75 sq.m BMI - 22.15 Temperature - 97.2 F (LOW) Pulse - 94 /min Respiration - 18 /min BP - 150/73 mm(hg) (HIGH) O2 Sat - 93 % (LOW) Pain - 2 Fatigue - 7 Performance Status: 1 - No physically strenuous activity, but ambulatory and able to carry out light or sedentary work (e.g. office work, light house work). (ECOG) Physical Examination: Respiratory - Lungs are clear to auscultation, Cardiovascular - Regular rate and rhythm of heart, Gastrointestinal - Soft, bowel sounds present, Extremities - No visible edema or rash. Lab/Imaging: Test performed on Feb 24, 2020 11:37 Ua Color Yellow Ua Appearance SL Hazy Ua Glucose Norm Ua Bilirubin Neg Ua Ketones Negative Ua Specific [place] 1.010 Ua Blood Neg Ua pH 5 Ua Protein Neg Ua Nitrites Negative Ua Leukocyte Esterase 1+ Ua Micro: WBC >100 /hpf Urine Culture CC 50 CFU/ml Ua Micro: RBC NONE /hpf Ua Micro: Squam Epith Cells RARE /hpf Ua Micro: Bacteria TRACE /hpf Test performed on Feb 23, 2020 11:35 Sodium 138 mmol/L Potassium 3.4 mmol/L Chloride 102 mmol/L CO2 28 mmol/L Anion Gap 11.4 BUN 7 mg/dL Creatinine 0.6 mg/dL Cr Clearance (Est) 101.7100 mL/min eGFR 101.0 mL/min Glucose 76 mg/dL Osmolality - Calculated 283 mOsm/kg Calcium 9.3 mg/dL Protein, Total 6.9 g/dL Albumin 3.6 g/dL Globulin 3.3 g/dL Bilirubin, Total 0.5 mg/dL ALT (SGPT) 25 U/L AST (SGOT) 38 U/L Alkaline Phosphatase 231 IU/L WBC 4.9 10 3/uL RBC 3.41 10 6/uL HGB 11.8 g/dL HCT 37.1 % MCV 108.8 fL MCH 34.6 pg MCHC 31.8 g/dL RDW 18.0 % Platelet Count 363 10 3/cmm MPV 9.5 fL Neutrophils 1.53 10 3/uL Lymphocytes 2.1 10 3/uL Monocytes 0.9 10 3/uL Eosinophils 0.3 10 3/uL Basophils 0.1 10 3/uL Neutrophil % 31.4 % Lymphocyte % 42.1 % Monocyte % 18.4 % Eosinophil % 6.5 % Basophils % 1.2 % NRBC % 0 % Test performed on Nov 11, 2019 08:21 Manual Lymphocytes 16.6 % Manual Monocytes 2.3 % Manual Eosinophils 4.4 % Manual Basophils 0.4 % Impression: History of left breast cancer with metastases to left scapula status post bilateral mastectomy and left axillary lymph node dissection followed by radiation therapy to left chest wall and axilla in 2008 in [facility] status post 1 year of Herceptin and paclitaxel and Arimidex for some time status post radiation therapy to left scapula biopsy-proven metastases Medical record obtained from [facility] [place], [place] and ER/MS positive HER-2/oneida overexpression positive it shows #1 presentation with abnormal screening mammogram in 2010. Patient underwent neoadjuvant chemotherapy with weekly paclitaxel and Herceptin for 12 cycle from May Treated with neoadjuvant chemotherapy FEC plus Herceptin from August 2010 through October 2010 In November 2010 she undergoes bilateral simple mastectomy with pathology demonstrating pT2 N2 disease Mrs Santamaria completed 1 year of adjuvant Herceptin therapy with adjuvant aromatase inhibitor In October 2011 patient transitioned to single agent tamoxifen due to poor tolerance of aromatase inhibitor therapy In October 2012 patient presented with left scapular pain imaging demonstrates abnormal bones lesion with biopsy notable for ER/MS positive HER-2/oneida overexpressing breast cancer, staging evaluation demonstrated bilateral pulmonary nodules with mediastinal lymphadenopathy On 12/16/2012 patient initiates letrozole plus Herceptin plus PERJETA on clinical trial On 02/22/2015 patient demonstrates subjective progression of disease within lungs On 02/25/2015 initiated on KADCYLA History of metastatic disease status post chemotherapy with different agents on multiple occasions most recent hormonal agent was letrozole 2.5 mg Elevated tumor [place] [address] scan of chest abdomen pelvis done on 10/10/2016 showed multiple bilateral pulmonary nodules consistent with metastatic disease multiple lytic lesion including posterior aspect of T12 vertebral body related dissection of much of right side of T10 vertebra and a large lytic lesion involving the roof of the right acetabulum and right iliac wing and focus of due to dissection lesion in right ischium Stable tiny low-attenuation abnormalities within the liver most likely consistent with multiple tiny cysts Pulmonary emphysema 8 ON 09/24/2016 CA 15.3 342.6 CA 27- 29 493.59 Upper mid back pain and right hip pain due to bone metastases questionable cord compression. She did have restaging with PET/CT on 11/03/2016. The PET/CT revealed multiple FGD avid osteolytic metastases in the left scapula, posterior left 9th rib, T10, T12 and the anterior right acetabulum. Multiple FDG avid metastatic pulmonary nodules represented by 1.9 cm nodule in the posterbasal segment of the right lower lobe with an SUV of 5 and a 1.7 cm nodule in the anterrobasal segment of the left lower lobe with an SUV of 5.1. No hepatic or adrenal metastases identified. Mrs Santamaria was referred to [facility] radiation oncology and underwent radiation to the right hip, left scapula, T10-T12 spine. Her pain resolved with the radiation. offered her palliative chemotherapy with Navelbine and Herceptin. She has agreed to a trial of the chemotherapy. CT scan of the chest August 2017 reported disease progression in the chest and evidence of possible hepatic involvement as well as possible metastatic site involving the left 12th rib. PET/CT scan done on 03/02/2017 showed multiple FDG avid metastatic pulmonary nodules represented by 1.9 cm nodule in the posterior basal segment of right lower lobe with SUV 9.6 compared to 5 on prior exam and a 1.7 cm nodule in the anterior basal segment of left lower lobe with SUV of 4.9 compared to 4.1 on prior exam. There were multiple new hepatic metastatic lesions represented by 1.7 cm nodule with SUV of 5.4 in the anterior superior segment right upper lobe. The PET/CT also reported bone metastasis the left anterior superior iliac spine posteriorly right sacroiliac and T10 T12 right acetabulum, left scapula and posterior left eighth rib. MRI scan of C-spine done on 02/28/2017 showed metastatic lesion of C2 vertebral body. Additional foci of metastatic disease may involve C6 and T1 vertebral bodies multiple disc bulging and spondylosis at C5/C6 and C6/C7 with mild anterior impingement Episode of rectal bleed/abdominal pain probably due to diverticulitis/diverticular bleed CT scan of chest abdomen pelvis done on 03/31/2017 showed pulmonary metastatic disease with variable size of some of the lesion since 10/30/2016 some lesions are smaller and other are larger hepatic and bone metastatic disease similar to the prior exam CT PET scan done on 04/27/2017 showed osseous lesion in left half of C1, and right T1 transverse process and left T1 pedicle, the L1 vertebral body, and L2 vertebral body shows no changes. However, pelvic metastatic disease has worsened with SUV 8.2 compared to 4.1 previously but she is status post radiation therapy to her pelvic bones., Multifocal hepatic metastatic disease is progressed , with SUV 9.8 compared to 5.4 earlier, bilateral hypermetabolic pulmonary nodules are unchanged and right hilar malignant node demonstrated progression Started on lapatinib and Xeloda on 06/08/2017 then it was placed on hold due to radiation therapy to left hip pain. Left posterior hip pain due to bone metastases status post radiation to right hip. Status post radiation therapy to C-spine could complete 9 out of 12 recommended doses because of severe radiation-induced pharyngitis , finished on 06/25/2017 Status palliative post radiation to hip, finished on 06/26/2007 Tumor marker CA-27-29 gone up to 1346.70 on 08/20/2017 from 896.45 on 07/04/2017 Lapatinib and Xeloda discontinued on 08/26/2017 and her treatment plan changed to weekly Herceptin and Taxane 3 weeks on and 1 week off with followup PET/CT after the third cycle. She had GI issues with Zometa ( an episode of nausea vomiting and abdominal pain) so she refuses to repeat the Zometa. She will be offered Xgeva 120 mg every month instead of the Zometa. She began her first cycle of Abraxane and Herceptin on 10/09/2017.Till 12/17/2017 at that time Abraxane was discontinued because of intolerance and last dose of Herceptin was given on 12/31/2017 and because of progressive weakness and fatigue this was also discontinued Patient was referred to [facility] she was seen by Dr. Ramirez on 03/31/2018, many clinical trials are available but due to transportation and financial reason patient could not consider any of them. So palliative chemotherapy with erbulin /Herceptin or carboplatin/gemcitabine/Herceptin was recommended. She did discontinue letrozole on 04/07/2018 and it was recommended that she start on weekly carboplatin AUC 2/gemcitabine 1000 mg/m2/Herceptin day 1, 8 and 15 every 28 days. Along with monthly Xgeva. She began her first cycle on 04/15/2018 .Follow-up CT PET scan done on 07/05/2018 showed hepatic metastatic disease has improved when compared with CT PET scan done in April 2017 and index lesion in the right hepatic dome has now significant central necrosis. There was a mixed response to multiple lung nodules, a left upper lobe nodules is unchanged in size at 1.6 cm but has SUV 3.8 compared to 5.6 before similar improvement is present in the posterior right lower lobe nodule and left lung base nodules. However there are new lesions in the right middle and medial right lobes, the 2 new lesions in the medial right lobe have SUV of 289 and right middle lobe measures 2.6 cm with SUV of 6.8. Multiple osseous lesion seen previously were sclerotic and FDG negative. Suspicious uptake is identified in left femoral neck and proximal right femur and L2. Mrs Santmaaria continues with Carboplatin, gemcitabine and Herceptin and monthly Xgeva. She does require intermittent support with growth factors to keep her blood counts up in order to stay on the treatment plan. Follow-up CT PET scan done on 10/25/2018 showed multiple hepatic lesions are seen on prior studies on 07/05/2018 or minimally improved in size and now with improved SUV. Mild improvement in bilateral lung nodules both in size and SUV. Mild improvement is noted in multifocal osseous metastatic disease. Follow-up echocardiogram done on 11/07/2018 showed ejection fraction around 60%. She continued with weekly Carboplatin/gemcitabine and Herceptin. She has completed 11 full cycles and had restaging imaging on 04/21/2019. She had a PET/CT at [facility] on 04/21/2019. The PET/CT apparently was not compared to the scan she had on 10/25/2018. A review/comparison and an addended report has been requested. However in the interim we discussed the findings of her April 21, 2019 PET in relation to the October 25, 2018 PET. There were multiple pulmonary nodules present with the largest at the right base posteromedially measuring 4.9 x 2 point centimeters with a maximum SUV of 6.71. The results of that SUV on the October 25, 2018 report is somewhat blurry but looks to be 8.4 possibly 6.4 but indicates that the pulmonary nodules are relatively stable. The maximum SUV in the liver was 3.31 and on the October 2018 scan was 5.1. did compare the reports and felt that Soledad had had some improvement in her overall disease. She continued with chemotherapy with carboplatin gemcitabine and Herceptin. As her recent PET scan confirms disease progression she will discontinue her current chemo regimen with Herceptin/carboplatin/gemcitabine and prior approval was requested for Fam Trastuzumab deruxtecan (Enhertu). Dr Pitts had discussed the side effects possible benefits associated with Enhertu including but not limited to allergic reaction, nausea vomiting, fatigue, hair loss,, pneumonitis, neuropathy, bone marrow suppression amongst others. Mrs Santamaria has consented to treatment and we do have approval from insurance. BREAST CANCER TREATMENT HISTORY SUMMARY Paclitaxel Herceptin for 12 cycles from May 2010 to August 2010 [facility]EC and Herceptin through October 2010 Aromatase inhibitor began in October 2010 Bilateral mastectomies November 2010???postmastectomy radiation completed 03/21/2011 Tamoxifen 2013 Clinical trial with Herceptin, Perjeta and letrozole beginning November 2012 through February 2015 Kadcyla began in February 2015 but was stopped after 2-3 doses due to intolerance Radiation to the right hip, left scapula, T10-T12 spine in October 2016. She is also started on lapatinib and Xeloda which continued through August 2017. She had elevation of tumor markers and at that time was switched to Herceptin and Abraxane on 10/09/2017. She stopped the Abraxane after her last dose on 12/17/2017 because of intolerance and Herceptin was then given on 12/31/2017. She was referred to [facility] for possible clinical trials but due to transportation and financial reasons she could not consider any of them. She began palliative chemotherapy with carboplatin gemcitabine and trastuzumab on 04/15/2018. She was also getting monthly Xgeva. She is remained on this regimen until her most recent PET/CT from October 2019 which is show disease progression. She will be transitioned to Enhertu (11/05/2019). Plan: Discussed with patient regarding her labs white blood count 3.9 hemoglobin 11.6 hematocrit 36.3 platelets 333,000 CMP within normal limit except potassium 3.2 and alk phos 285 Clinically, patient is doing well with no new signs suggestive of disease progression but feeling fatigued and tired and her CBC showed mild leukopenia/neutropenia, will hold her Enhertu today and then she will return to clinic in 1 week with CBC CMP hopefully by that time she will feel better and neutropenia/leukopenia will resolve As far as mild hypokalemia is concerned she will take KCl 20 mEq p.o. daily for 3 days and will follow with potassium level. Signed By: Kortney Pitts M.D. <<Signature on File>>
[2020-03-25 11:27] LABS: Basophils # 0.1 10^3/uL (0.0-0.1); Eosinophils # 0.3 10^3/uL (0.0-0.8); Eosinophils % 4.3 %; Hematocrit 38.2 % (37.0-47.0); Hemoglobin 12.2 g/dL (11.5-15.3); Lymphocytes # 2.2 10^3/uL (0.8-4.8); Lymphocytes % 35.8 %; Mean Corpuscular HGB Conc 31.9 g/dL (30.0-36.0); Mean Corpuscular Hemoglobin 35.1 pg (28.0-34.0); Mean Corpuscular Volume 109.8 fL (81-99); Mean Platelet Volume 9.8 fL (7.4-10.4); Monocytes % 16.3 %; Neutrophils # 2.58 10^3/uL (1.8-7.7); Neutrophils % 42.3 %; Nucleated Red Blood Cells % 0 %; Platelet Count 358 10^3/cmm (130-400); Red Blood Count 3.48 10^6/uL (4.1-5.3); Red Cell Distribution Width 16.9 % (12.1-15.1); White Blood Count 6.1 10^3/uL (4.0-10.0)
[2020-03-25 12:38] LABS: Alanine Aminotransferase 24 U/L (0-33); Albumin Level 3.8 g/dL (3.5-5.2); Alkaline Phosphatase 294 IU/L (35-105); Anion Gap 12.9 (5-19); Aspartate Amino Transferase 38 U/L (0-32); Blood Urea Nitrogen 9 mg/dL (8-23); Calcium 9.2 mg/dL (8.5-10.5); Carbon Dioxide 27 mmol/L (22-29); Chloride 101 mmol/L (98-107); Glucose 71 mg/dL (65-115); Osmolality Calculated 281 mOsm/kg (285-295); Potassium 3.9 mmol/L (3.5-5.1); Sodium 137 mmol/L (136-145); Total Bilirubin 0.5 mg/dL (0.15-1.2); Total Protein 6.8 g/dL (6.6-8.7)
--- NOTE | 2020-03-28 10:51 | ONC FU_ITS ---
Dr. Pitts follow up note Patient: Soledad Santamaria Unit #: [id number]: [id number] Dicatated By: Kortney Pitts M.D.Date of Visit:Mar 28, 2020 Onc Med Follow-up/Prog Note History of Present Illness: Mrs. Santamaria is a 64-year-old female with history of left breast carcinoma with bone metastasis. She presented with an abnormal mammogram in 2010. She had apparently had detected an left-sided breast mass in late 2009. She was referred to Dr Gadiel Reed @ [facility] in [place], [place]. In April 2010, she underwent needle core biopsy of the left breast that did confirm invasive ductal carcinoma histological grade 2/3, ER+ [place]+ and Her 2 [place] immunostain was 3+. She also had biopsy of a left axillary lymph node that was positive for invasive carcinoma with no lymphoid tissue identified. Her exam prior to chemo revealed a 3 cm mass in the extreme upper outer aspect of the left breast and multiple palpable enlarged lymph nodes-the largest was 2 cm and mobile.. Further workup included a breast MRI which did show biopsy proven malignancy in the left upper outer quadrant measuring 3.3 cm with associated axillary and subpectoral adenopathy. She had multiple satellite nodes with the largest measuring 7 cm. She did undergo MRI guided biopsy on June 08, 2010, which did report invasive cancer. She did have CT of the chest and a bone scan which did not show distant disease,. However, there was an enlarged lymph node in the subcutaneous tissues posterior to the left scapula and was biopsied on May 26, 2010 and was negative for malignancy. She under went neoadjuvant chemotherapy with weekly paclitaxel and Herceptin for 12 cycles from May 2010 to August of 2010 followed by FEC and Herceptin through October 2010. She completed 1 year of Herceptin in May 2011 during which time she was also taking an AI. She did have febrile neutropenia requiring admission in September 2010. She underwent bilateral mastectomies( for abnormal mammogram findings in the right breast) at [facility] in [facility] in November 2010. She did have post mastectomy radiation completed on 03/21/2011. She then underwent reconstruction with bilateral breast implants. Unfortunately in November 2011, the left implant became infected and had to be removed. During work up of the implant abnormality she has found to have a metastatic lesion in her left scapula. She did not have any problems until November of 2012 at which time she was having generalized bone pain, which she thought was a combination of Actonel and Anastrozole. The pain did not improve with stopping these medications. She was transitioned to single agent Tamoxifen. A bone scan revealed increased activity along the lateral margin of the left scapula suspicious of osseous metastatic disease when compared to the bone scan from November 2011. This lesion was biopsied on 12/01/2012 and revealed metastatic disease consistent with the breast primary. She did not have radiation at that time as she was not having significant pain. Mrs Santamaria was restaged and found to have diffuse pulmonary nodules and mediastinal lymphadenopathy and in November 2012, she was enrolled in a clinical trial with Herceptin. Perjeta and Letrozole. She had restaging in March 2014 that revealed slight progression of her pulmonary nodules which did not meet criteria for end point results of the clinical trial and was taken off the trial. Her bone scan was reported as stable. She transferred her care to [facility] in [place], [place] to the care of Dr Mehran Jacobson III in May 2014 due to the difficulty traveling to [facility]. The treatment of letrozole, Herceptin and Perjeta was continued until she disease progression and was changed to Kadcyla in February 2015 after restaging imaging revealed disease progression.And she could not tolerate and it was discontinued after 2 or 3 doses. INTERIM HISTORY: Mrs Santamaria was referred to us in October 2016 for followup at which time, Mrs Santamaria was having right upper back pain, left chest wall pain and right groin pain. She did have restaging with PET/CT on 11/03/2016. The PET/CT revealed multiple FGD avid osteolytic metastases in the left scapula, posterior left 9th rib, T10, T12 and the anterior right acetabulum. Multiple FDG avid metastatic pulmonary nodules represented by 1.9 cm nodule in the posterbasal segment of the right lower lobe with an SUV of 5 and a 1.7 cm nodule in the anterrobasal segment of the left lower lobe with an SUV of 5.1. No hepatic or adrenal metastases identified. Mrs Santamaria was referred [place] [facility] [place] and underwent radiation to the right hip, left scapula, T10-T12 spine. Her pain resolved with the radiation, offered her palliative chemotherapy with Navelbine and Herceptin. She had agreed to a trial of the chemotherapy. Follow-up CT PET scan showed disease progression chemotherapy was discontinued and she was referred to radiation oncology for palliative radiation therapy. After this cycle of radiation therapy, she was started on lapatinib and Xeloda. She was tolerating it well but she was referred to radiation for C-spine metastases management. At that time her chemotherapy was put on hold. She developed right hip pain for which she received palliative radiation therapy to the 06/25/2017. The lapatinib and Xeloda was restarted but her follow-up tumor markers showed evidence of disease progression as the CA-27-29 gone up to 1346.70 on 08/20/2017 compared to 896.45 on 07/04/2017. Her chemotherapy with Xeloda and lapatinib was discontinued and decided to switch her to weekly Herceptin and Taxane , patient doesn't want take steroids so we recommended Herceptin and Abraxane combination. She did develop nausea vomiting abdominal pain with her last dose of Zometa and doesn't want to take Zometa anymore. We will switch her to Xgeva. There was delay in getting started with the Herceptin/Abraxane. She apparently had positive TB test which required workup and eventually was found to be a false positive. She began her first cycle of Herceptin and Abraxane on 10/09/2017.Last dose of Abraxane/Herceptin was given on 12/17/2017 and because of intolerance Abraxane was discontinued and last dose of Herceptin was given on 12/31/2017 Mrs Santmaaria was seen by Dr. Ramirez, oncologist at [facility], for clinical trial and many clinical trials available but due to transportation and financial reasons, patient could not consider any of them. Palliative chemotherapy with carboplatin/gemcitabine/Herceptin or eribulin /Herceptin was recommended. Patient had bone scan and CT scan of chest abdomen done at [facility] which showed widespread metastatic disease. She began chemotherapy with weekly carboplatin, gemcitabine and trastuzumab on 04/15/2018 Follow-up CT PET scan done on 07/05/2018 showed improvement in hepatic metastatic disease since April 2017 study Mixed response to multiple bilateral pulmonary lesion Reactive marrow with splenic activity Osseous metastatic disease seen on April 2017 study is sclerotic and FDG negative Mrs Santamaria was admitted to hospital with abdominal pain and diagnosed with diverticulitis treated successfully with antibiotics and during this time, CT scans of chest abdomen pelvis were done on 07/30/2018 . The scans showed extensive pulmonary metastases and hepatic metastases and bone metastases, stable when compared with CT PET scan done in June 2018. She continued with treatment with carboplatin/gemcitabine/Herceptin. Follow-up CT PET scan done on 10/25/2018 showed mild improvement in hepatic, pulmonary and osseous metastatic disease. She has continued with chemotherapy with weekly Carboplatin, gemcitabine and Herceptin. She is receiving Neupogen support on and Saturday after her treatment on Saturday. She was getting the Neupogen at [place], [place]. She tolerated this plan well. She continues to have exertional shortness of breath but states it is no worse than what is has been but it is no better either. She denies any angina type pain but thinks she may have palpatations once in a while with the shortness of breath. She denies orthopnea. She denies any cough. She does have a very strong family history of CAD-both parents with her father's first NV in his 30's and both brothers have CAD. She has never had a diagnosis of CAD. She did have an echocardiogram on 11/07/2018 that reported EF of 60%-unchanged from previous echo. She reported she had a bug bite on her right breast reconstruction site around where the nipple should be. She states it presented as a big blister then it popped and then formed a scabbed area but no drainage. She had been applying triple antibotic ointment to it. She was referred to plastic surgery at [facility] and ulimately underwent right breast implant removal in December 2018, as per patient and there was no evidence of breast cancer in the specimen. Her chemotherapy was delayed because of dental procedure from 12/30/2018 to 02/04/2019. She resumed treatment on 02/04/2019. Echocardiogram done on 03/09/2019 showed Ejection fraction was 68%. Mrs Santamaria underwent restaging PET/Ct on 04/21/2019. The PET/CT apparently was not compared to the scan she had on 10/25/2018. A review/comparison and an addended report has been requested. However in the interim we discussed the findings of her April 21, 2019 PET in relation to the October 25, 2018 PET. There were multiple pulmonary nodules present with the largest at the right base posteromedially measuring 4.9 x 2 point centimeters with a maximum SUV of 6.71. The results of that SUV on the October 25, 2018 report is somewhat blurry but looks to be 8.4 possibly 6.4 but indicates that the pulmonary nodules are relatively stable. The maximum SUV in the liver was 3.31 and on the October 2018 scan was 5.1. did compare the reports and felt that Soledad had had some improvement in her overall disease. We of course are waiting for the final review and updated report. These findings have been discussed with Mrs Santamaria she understands that it will be compared with the one in October. She has had persistent right arm numbness and has an appointment with Dr Matthew soto for followup on that. She now has noticed right leg numbness. It comes and goes but seems to be lasting longer when it does come. She has had no TIA symptoms. MRI scan of the head done on 05/07/2019 showed no evidence of brain metastases. Due to hyperintense enhancing 9 x 6 mm intrapituitary lesion in the left aspect of pitiutary. Normal optic chasm. Slight [id number] mass effect on the infundibulum. Consistent with a pituitary adenoma. 10 mm metastatic C2 vertebral body lesions likely previously treated. She has continued with carboplatin, gemcitabine and Herceptin. She is also getting monthly Xgeva. Echocardiogram done on November 07, 2018 showed ejection fraction around 65% and appears unchanged from before Echocardiogram done on September 24, 2019 showed ejection fraction 55 -60% CT PET scan done on October 14, 2019 showed increasing metabolism of existing pulmonary nodules e.g. dominant pulmonary nodule within the medial right lower lobe with SUV of 8.3 compared to 6.7 in April 2019 and medial left lower lobe nodule is 1.4 x 1.3 cm with SUV 7 compared to 1.1 x 4 cm with SUV of 2.3 but no new lung nodule In abdomen increase in size of dominant cyst within central portion of liver measuring 6.7 x 5.1 with SUV of 8.1 compared to 4.8 by with SUV of 6 there is a new hypermetabolic lesion within the right lower lobe of the liver, size 0.9 cm with maximum SUV 6 increasing hypermetabolic activity in the existing osseous metastasis without new lesion identified e.g. in the sacrum SUV 6.9 compared to 4.6 previously. Due to the disease progression,she was recommended further treatment with Enhertu (fam-trastuzumab deruxtecan) an anti-HER2; monoclonal antibody; antineoplastic agent, topoisomerase I inhibitor. She began her first cycle on 11/05/2019 .Follow-up CT PET scan done after 5 doses of Enhertu on February 16, 2020 showed good response lung, liver and osseous lesion have all improved, new scattered lung and mediastinal findings may reflect inflammatory changes only. Came for follow-up, denies any specific complaints except generalized weakness and fatigue which is improving now, as per patient cold air inhalation sometimes give her shortness of breath, patient has history of asthma but denies any hemoptysis or hematemesis denies any shortness of breath at rest, denies any palpitation denies any headaches blurred vision double denies any melena or hematochezia denies any jaundice denies any fever chills denies any dysuria. Tolerating Enhertu reasonably well but with expected side effects like generalized weakness and fatigue especially with 3 weekly schedule Medications: Claritin 1 Tablet (of 10 mg) Oral daily, Magnesium 1 Tablet Oral daily PRN, Multivitamin Adults 1 Tablet Oral daily PRN, Potassium 1 Tablet (of 99 mg) Oral daily PRN, Prevacid 1 Capsule (of 30 mg) Capsule Delayed Release Oral b.i.d., Vitamin C 1 Tablet Oral daily PRN Allergies: Codeine Sulfate Review of Systems: Review of Systems is not available for this patient. Vital Signs: Performed on Mar 28, 2020 08:45 Height - 67.00 in Weight - 139.8 lbs (LOW) BSA - 1.74 sq.m BMI - 21.90 Temperature - 98.6 F Pulse - 87 /min Respiration - 18 /min BP - 149/66 mm(hg) (HIGH) O2 Sat - 97 % Pain - 0 Fatigue - 6 Performance Status: 2 - Ambulatory/capable of all self-care, unable to perform any work activities. Up and about more than 50% of waking hours. (ECOG) Physical Examination: Respiratory - Lungs are clear to auscultation, Cardiovascular - Regular rate and rhythm of heart, Gastrointestinal - Soft, bowel sounds present, Extremities - No visible edema or rash. Lab/Imaging: Test performed on Feb 24, 2020 11:37 Ua Color Yellow Ua Appearance SL Hazy Ua Glucose Norm Ua Bilirubin Neg Ua Ketones Negative Ua Specific [place] 1.010 Ua Blood Neg Ua pH 5 Ua Protein Neg Ua Nitrites Negative Ua Leukocyte Esterase 1+ Ua Micro: WBC >100 /hpf Urine Culture CC 50 CFU/ml Ua Micro: RBC NONE /hpf Ua Micro: Squam Epith Cells RARE /hpf Ua Micro: Bacteria TRACE /hpf Test performed on Feb 23, 2020 11:35 Sodium 138 mmol/L Potassium 3.4 mmol/L Chloride 102 mmol/L CO2 28 mmol/L Anion Gap 11.4 BUN 7 mg/dL Creatinine 0.6 mg/dL Cr Clearance (Est) 101.7100 mL/min eGFR 101.0 mL/min Glucose 76 mg/dL Osmolality - Calculated 283 mOsm/kg Calcium 9.3 mg/dL Protein, Total 6.9 g/dL Albumin 3.6 g/dL Globulin 3.3 g/dL Bilirubin, Total 0.5 mg/dL ALT (SGPT) 25 U/L AST (SGOT) 38 U/L Alkaline Phosphatase 231 IU/L WBC 4.9 10 3/uL RBC 3.41 10 6/uL HGB 11.8 g/dL HCT 37.1 % MCV 108.8 fL MCH 34.6 pg MCHC 31.8 g/dL RDW 18.0 % Platelet Count 363 10 3/cmm MPV 9.5 fL Neutrophils 1.53 10 3/uL Lymphocytes 2.1 10 3/uL Monocytes 0.9 10 3/uL Eosinophils 0.3 10 3/uL Basophils 0.1 10 3/uL Neutrophil % 31.4 % Lymphocyte % 42.1 % Monocyte % 18.4 % Eosinophil % 6.5 % Basophils % 1.2 % NRBC % 0 % Test performed on Nov 11, 2019 08:21 Manual Lymphocytes 16.6 % Manual Monocytes 2.3 % Manual Eosinophils 4.4 % Manual Basophils 0.4 % Impression: History of left breast cancer with metastases to left scapula status post bilateral mastectomy and left axillary lymph node dissection followed by radiation therapy to left chest wall and axilla in 2008 in [facility] in [facility] status post 1 year of Herceptin and paclitaxel and Arimidex for some time status post radiation therapy to left scapula biopsy-proven metastases Medical record obtained from [facility] [place], [place] and ER/[place] positive HER-2/oneida overexpression positive it shows #1 presentation with abnormal screening mammogram in 2010. Patient underwent neoadjuvant chemotherapy with weekly paclitaxel and Herceptin for 12 cycle from May Treated with neoadjuvant chemotherapy FEC plus Herceptin from August 2010 through October 2010 In November 2010 she undergoes bilateral simple mastectomy with pathology demonstrating pT2 N2 disease Mrs Santamaria completed 1 year of adjuvant Herceptin therapy with adjuvant aromatase inhibitor In October 2011 patient transitioned to single agent tamoxifen due to poor tolerance of aromatase inhibitor therapy In October 2012 patient presented with left scapular pain imaging demonstrates abnormal bones lesion with biopsy notable for ER/KS positive HER-2/oneida overexpressing breast cancer, staging evaluation demonstrated bilateral pulmonary nodules with mediastinal lymphadenopathy On 12/16/2012 patient initiates letrozole plus Herceptin plus PERJETA on clinical trial On 02/22/2015 patient demonstrates subjective progression of disease within lungs On 02/25/2015 initiated on KADCYLA History of metastatic disease status post chemotherapy with different agents on multiple occasions most recent hormonal agent was letrozole 2.5 mg Elevated tumor markers [place] [address] scan of chest abdomen pelvis done on 10/10/2016 showed multiple bilateral pulmonary nodules consistent with metastatic disease multiple lytic lesion including posterior aspect of T12 vertebral body related dissection of much of right side of T10 vertebra and a large lytic lesion involving the roof of the right acetabulum and right iliac wing and focus of due to dissection lesion in right ischium Stable tiny low-attenuation abnormalities within the liver most likely consistent with multiple tiny cysts Pulmonary emphysema 8 ON 09/24/2016 CA 15.3 342.6 CA 27- 29 493.59 Upper mid back pain and right hip pain due to bone metastases questionable cord compression. She did have restaging with PET/CT on 11/03/2016. The PET/CT revealed multiple FGD avid osteolytic metastases in the left scapula, posterior left 9th rib, T10, T12 and the anterior right acetabulum. Multiple FDG avid metastatic pulmonary nodules represented by 1.9 cm nodule in the posterbasal segment of the right lower lobe with an SUV of 5 and a 1.7 cm nodule in the anterrobasal segment of the left lower lobe with an SUV of 5.1. No hepatic or adrenal metastases identified. Mrs Santamaria was referred [place] [facility] [place] and underwent radiation to the right hip, left scapula, T10-T12 spine. Her pain resolved with the radiation. offered her palliative chemotherapy with Navelbine and Herceptin. She has agreed to a trial of the chemotherapy. CT scan of the chest August 2017 reported disease progression in the chest and evidence of possible hepatic involvement as well as possible metastatic site involving the left 12th rib. PET/CT scan done on 03/02/2017 showed multiple FDG avid metastatic pulmonary nodules represented by 1.9 cm nodule in the posterior basal segment of right lower lobe with SUV 9.6 compared to 5 on prior exam and a 1.7 cm nodule in the anterior basal segment of left lower lobe with SUV of 4.9 compared to 4.1 on prior exam. There were multiple new hepatic metastatic lesions represented by 1.7 cm nodule with SUV of 5.4 in the anterior superior segment right upper lobe. The PET/CT also reported bone metastasis the left anterior superior iliac spine posteriorly right sacroiliac and T10 T12 right acetabulum, left scapula and posterior left eighth rib. MRI scan of C-spine done on 02/28/2017 showed metastatic lesion of C2 vertebral body. Additional foci of metastatic disease may involve C6 and T1 vertebral bodies multiple disc bulging and spondylosis at C5/C6 and C6/C7 with mild anterior impingement Episode of rectal bleed/abdominal pain probably due to diverticulitis/diverticular bleed CT scan of chest abdomen pelvis done on 03/31/2017 showed pulmonary metastatic disease with variable size of some of the lesion since 10/30/2016 some lesions are smaller and other are larger hepatic and bone metastatic disease similar to the prior exam CT PET scan done on 04/27/2017 showed osseous lesion in left half of C1, and right T1 transverse process and left T1 pedicle, the L1 vertebral body, and L2 vertebral body shows no changes. However, pelvic metastatic disease has worsened with SUV 8.2 compared to 4.1 previously but she is status post radiation therapy to her pelvic bones., Multifocal hepatic metastatic disease is progressed , with SUV 9.8 compared to 5.4 earlier, bilateral hypermetabolic pulmonary nodules are unchanged and right hilar malignant node demonstrated progression Started on lapatinib and Xeloda on 06/08/2017 then it was placed on hold due to radiation therapy to left hip pain. Left posterior hip pain due to bone metastases status post radiation to right hip. Status post radiation therapy to C-spine could complete 9 out of 12 recommended doses because of severe radiation-induced pharyngitis , finished on 06/25/2017 Status palliative post radiation to hip, finished on 06/26/2007 Tumor marker CA-27-29 gone up to 1346.70 on 08/20/2017 from 896.45 on 07/04/2017 Lapatinib and Xeloda discontinued on 08/26/2017 and her treatment plan changed to weekly Herceptin and Taxane 3 weeks on and 1 week off with followup PET/CT after the third cycle. She had GI issues with Zometa ( an episode of nausea vomiting and abdominal pain) so she refuses to repeat the Zometa. She will be offered Xgeva 120 mg every month instead of the Zometa. She began her first cycle of Abraxane and Herceptin on 10/09/2017.Till 12/17/2017 at that time Abraxane was discontinued because of intolerance and last dose of Herceptin was given on 12/31/2017 and because of progressive weakness and fatigue this was also discontinued Patient was referred to [facility] she was seen by Dr. Ramirez on 03/31/2018, many clinical trials are available but due to transportation and financial reason patient could not consider any of them. So palliative chemotherapy with erbulin /Herceptin or carboplatin/gemcitabine/Herceptin was recommended. She did discontinue letrozole on 04/07/2018 and it was recommended that she start on weekly carboplatin AUC 2/gemcitabine 1000 mg/m2/Herceptin day 1, 8 and 15 every 28 days. Along with monthly Xgeva. She began her first cycle on 04/15/2018 .Follow-up CT PET scan done on 07/05/2018 showed hepatic metastatic disease has improved when compared with CT PET scan done in April 2017 and index lesion in the right hepatic dome has now significant central necrosis. There was a mixed response to multiple lung nodules, a left upper lobe nodules is unchanged in size at 1.6 cm but has SUV 3.8 compared to 5.6 before similar improvement is present in the posterior right lower lobe nodule and left lung base nodules. However there are new lesions in the right middle and medial right lobes, the 2 new lesions in the medial right lobe have SUV of 289 and right middle lobe measures 2.6 cm with SUV of 6.8. Multiple osseous lesion seen previously were sclerotic and FDG negative. Suspicious uptake is identified in left femoral neck and proximal right femur and L2. Mrs Santamaria continues with Carboplatin, gemcitabine and Herceptin and monthly Xgeva. She does require intermittent support with growth factors to keep her blood counts up in order to stay on the treatment plan. Follow-up CT PET scan done on 10/25/2018 showed multiple hepatic lesions are seen on prior studies on 07/05/2018 or minimally improved in size and now with improved SUV. Mild improvement in bilateral lung nodules both in size and SUV. Mild improvement is noted in multifocal osseous metastatic disease. Follow-up echocardiogram done on 11/07/2018 showed ejection fraction around 60%. She continued with weekly Carboplatin/gemcitabine and Herceptin. She has completed 11 full cycles and had restaging imaging on 04/21/2019. She had a PET/CT at [facility] on 04/21/2019. The PET/CT apparently was not compared to the scan she had on 10/25/2018. A review/comparison and an addended report has been requested. However in the interim we discussed the findings of her April 21, 2019 PET in relation to the October 25, 2018 PET. There were multiple pulmonary nodules present with the largest at the right base posteromedially measuring 4.9 x 2 point centimeters with a maximum SUV of 6.71. The results of that SUV on the October 25, 2018 report is somewhat blurry but looks to be 8.4 possibly 6.4 but indicates that the pulmonary nodules are relatively stable. The maximum SUV in the liver was 3.31 and on the October 2018 scan was 5.1. did compare the reports and felt that Soledad had had some improvement in her overall disease. She continued with chemotherapy with carboplatin gemcitabine and Herceptin. As her recent PET scan confirms disease progression she will discontinue her current chemo regimen with Herceptin/carboplatin/gemcitabine and prior approval was requested for Fam Trastuzumab deruxtecan (Enhertu). Dr Pitts had discussed the side effects possible benefits associated with Enhertu including but not limited to allergic reaction, nausea vomiting, fatigue, hair loss,, pneumonitis, neuropathy, bone marrow suppression amongst others. Mrs Santamaria has consented to treatment and we do have approval from insurance. BREAST CANCER TREATMENT HISTORY SUMMARY Paclitaxel Herceptin for 12 cycles from May 2010 to August 2010 [facility] and Herceptin through October 2010 Aromatase inhibitor began in October 2010 Bilateral mastectomies November 2010???postmastectomy radiation completed 03/21/2011 Tamoxifen 2013 Clinical trial with Herceptin, Perjeta and letrozole beginning November 2012 through February 2015 Kadcyla began in February 2015 but was stopped after 2-3 doses due to intolerance Radiation to the right hip, left scapula, T10-T12 spine in October 2016. She is also started on lapatinib and Xeloda which continued through August 2017. She had elevation of tumor markers and at that time was switched to Herceptin and Abraxane on 10/09/2017. She stopped the Abraxane after her last dose on 12/17/2017 because of intolerance and Herceptin was then given on 12/31/2017. She was referred to [facility] for possible clinical trials but due to transportation and financial reasons she could not consider any of them. She began palliative chemotherapy with carboplatin gemcitabine and trastuzumab on 04/15/2018. She was also getting monthly Xgeva. She is remained on this regimen until her most recent PET/CT from October 2019 which is show disease progression. She will be transitioned to Enhertu (11/05/2019). Plan: Discussed with patient regarding her labs white blood count 6.1 hemoglobin 12.2 hematocrit 38.2 platelets 358,000 CMP within normal limits Clinically, patient doing well, with no new signs symptom suggestive of disease progression, tolerating Enhertu well but with expected side effects e.g. generalized weakness and fatigue, which is improving with 4 weekly schedule compared to 3 weekly, so we will consider switching her and her to schedule to every 4 weeks for better tolerance and quality of life., Will proceed with next dose of Enhertu today and then she will return to clinic in 4 weeks with CBC CMP Signed By: Kortney Pitts M.D. <<Signature on File>>
[2020-03-29] MEDS: denosumab 120 mg SDV SUBCUT (14:15)
[2020-03-29] MEDS: palonosetron 0.25 mg/5 mL SDV IVP (14:15)
[2020-03-29] MEDS: sodium chloride 0.9% 250 ML 999 ML IV (14:15)
== END 2020-04-17 23:59 | disposition home or self-care (01) ==
LOC: ONCMED 05:32
PROVIDERS: Internal Medicine Hematology & Oncology; PCP Nurse Practitioner Family; Visit Provider Nurse Practitioner
DX: Z51.11 Encounter for antineoplastic chemotherapy (principal); C50.512 Malignant neoplasm of lower-outer quadrant of left female breast; C79.51 Secondary malignant neoplasm of bone; C78.01 Secondary malignant neoplasm of right lung; C78.02 Secondary malignant neoplasm of left lung; D61.810 Antineoplastic chemotherapy induced pancytopenia; T45.1X5A Adverse effect of antineoplastic and immunosuppressive drugs, initial encounter; J43.9 Emphysema, unspecified; Z90.12 Acquired absence of left breast and nipple; Z90.11 Acquired absence of right breast and nipple; Z92.3 Personal history of irradiation; Z79.811 Long term (current) use of aromatase inhibitors; Z79.899 Other long term (current) drug therapy
CPT/HCPCS: 80053; 85025; 96367; 96372; 96375; 96413; 99214; J0897; J1100; J2469; J7050; J9358

== ENCOUNTER 2020-05-16 05:20 | Outpatient (RCR) | payer MEDICARE, SELFPAY ==
[2020-04-25 09:33] LABS: Basophils # 0.1 10^3/uL (0.0-0.1); Basophils % 1.3 %; Eosinophils # 0.2 10^3/uL (0.0-0.8); Eosinophils % 4.6 %; Hematocrit 35.9 % (37.0-47.0); Hemoglobin 11.6 g/dL (11.5-15.3); Lymphocytes # 1.6 10^3/uL (0.8-4.8); Lymphocytes % 29.9 %; Mean Corpuscular HGB Conc 32.3 g/dL (30.0-36.0); Mean Corpuscular Hemoglobin 35.4 pg (28.0-34.0); Mean Corpuscular Volume 109.5 fL (81-99); Mean Platelet Volume 9.3 fL (7.4-10.4); Monocytes # 0.6 10^3/uL (0.2-0.9); Monocytes % 11.7 %; Neutrophils # 2.71 10^3/uL (1.8-7.7); Neutrophils % 52.1 %; Nucleated Red Blood Cells % 0 %; Platelet Count 300 10^3/cmm (130-400); Red Blood Count 3.28 10^6/uL (4.1-5.3); Red Cell Distribution Width 15.8 % (12.1-15.1); White Blood Count 5.2 10^3/uL (4.0-10.0)
[2020-04-25 09:47] LABS: Alanine Aminotransferase 22 U/L (0-33); Albumin Level 3.5 g/dL (3.5-5.2); Alkaline Phosphatase 245 IU/L (35-105); Anion Gap 14.7 (5-19); Aspartate Amino Transferase 36 U/L (0-32); Blood Urea Nitrogen 7 mg/dL (8-23); Calcium 9.3 mg/dL (8.5-10.5); Carbon Dioxide 25 mmol/L (22-29); Chloride 108 mmol/L (98-107); Globulin 3.4 g/dL (1.3-4.6); Glomerular Filtration Rate 124.6 mL/min (90-130); Glucose 136 mg/dL (65-115); Osmolality Calculated 298 mOsm/kg (285-295); Potassium 3.7 mmol/L (3.5-5.1); Sodium 144 mmol/L (136-145); Total Bilirubin 0.5 mg/dL (0.15-1.2); Total Protein 6.9 g/dL (6.6-8.7)
[2020-04-25] MEDS: dextrose 5% 250 ML 999 ML IV (11:27)
[2020-04-25] MEDS: palonosetron 0.25 mg/5 mL SDV IVP (11:27)
--- NOTE | 2020-04-25 16:55 | ONC FU_ITS ---
Dr. Pitts follow up note Patient: Soledad Santamaria Unit #: [id number]: 1955 Dicatated By: Kortney Pitts M.D.Date of Visit:Apr 25, 2020 Onc Med Follow-up/Prog Note History of Present Illness: Mrs. Santamaria is a 64-year-old female with history of left breast carcinoma with bone metastasis. She presented with an abnormal mammogram in 2010. She had apparently had detected an left-sided breast mass in late 2009. She was referred to Dr Gadiel Reed @ [facility] in [place], [place]. In April 2010, she underwent needle core biopsy of the left breast that did confirm invasive ductal carcinoma histological grade 2/3, ER+ MS+ and Her 2 [place] immunostain was 3+. She also had biopsy of a left axillary lymph node that was positive for invasive carcinoma with no lymphoid tissue identified. Her exam prior to chemo revealed a 3 cm mass in the extreme upper outer aspect of the left breast and multiple palpable enlarged lymph nodes-the largest was 2 cm and mobile.. Further workup included a breast MRI which did show biopsy proven malignancy in the left upper outer quadrant measuring 3.3 cm with associated axillary and subpectoral adenopathy. She had multiple satellite nodes with the largest measuring 7 cm. She did undergo MRI guided biopsy on June 08, 2010, which did report invasive cancer. She did have CT of the chest and a bone scan which did not show distant disease,. However, there was an enlarged lymph node in the subcutaneous tissues posterior to the left scapula and was biopsied on May 26, 2010 and was negative for malignancy. She under went neoadjuvant chemotherapy with weekly paclitaxel and Herceptin for 12 cycles from May 2010 to August of 2010 followed by FEC and Herceptin through October 2010. She completed 1 year of Herceptin in May 2011 during which time she was also taking an AI. She did have febrile neutropenia requiring admission in September 2010. She underwent bilateral mastectomies( for abnormal mammogram findings in the right breast) at [facility] in [facility] in November 2010. She did have post mastectomy radiation completed on 03/21/2011. She then underwent reconstruction with bilateral breast implants. Unfortunately in November 2011, the left implant became infected and had to be removed. During work up of the implant abnormality she has found to have a metastatic lesion in her left scapula. She did not have any problems until November of 2012 at which time she was having generalized bone pain, which she thought was a combination of Actonel and Anastrozole. The pain did not improve with stopping these medications. She was transitioned to single agent Tamoxifen. A bone scan revealed increased activity along the lateral margin of the left scapula suspicious of osseous metastatic disease when compared to the bone scan from November 2011. This lesion was biopsied on 12/01/2012 and revealed metastatic disease consistent with the breast primary. She did not have radiation at that time as she was not having significant pain. Mrs Santamaria was restaged and found to have diffuse pulmonary nodules and mediastinal lymphadenopathy and in November 2012, she was enrolled in a clinical trial with Herceptin. Perjeta and Letrozole. She had restaging in March 2014 that revealed slight progression of her pulmonary nodules which did not meet criteria for end point results of the clinical trial and was taken off the trial. Her bone scan was reported as stable. She transferred her care to [facility] in [place], [place] to the care of Dr Mehran Jacobson III in May 2014 due to the difficulty traveling to [facility]. The treatment of letrozole, Herceptin and Perjeta was continued until she disease progression and was changed to Kadcyla in February 2015 after restaging imaging revealed disease progression.And she could not tolerate and it was discontinued after 2 or 3 doses. INTERIM HISTORY: Mrs Santamaria was referred to us in October 2016 for followup at which time, Mrs Santamaria was having right upper back pain, left chest wall pain and right groin pain. She did have restaging with PET/CT on 11/03/2016. The PET/CT revealed multiple FGD avid osteolytic metastases in the left scapula, posterior left 9th rib, T10, T12 and the anterior right acetabulum. Multiple FDG avid metastatic pulmonary nodules represented by 1.9 cm nodule in the posterbasal segment of the right lower lobe with an SUV of 5 and a 1.7 cm nodule in the anterrobasal segment of the left lower lobe with an SUV of 5.1. No hepatic or adrenal metastases identified. Mrs Santamaria was referred to [facility] radiation oncology and underwent radiation to the right hip, left scapula, T10-T12 spine. Her pain resolved with the radiation, offered her palliative chemotherapy with Navelbine and Herceptin. She had agreed to a trial of the chemotherapy. Follow-up CT PET scan showed disease progression chemotherapy was discontinued and she was referred to radiation oncology for palliative radiation therapy. After this cycle of radiation therapy, she was started on lapatinib and Xeloda. She was tolerating it well but she was referred to radiation for C-spine metastases management. At that time her chemotherapy was put on hold. She developed right hip pain for which she received palliative radiation therapy to the 06/25/2017. The lapatinib and Xeloda was restarted but her follow-up tumor markers showed evidence of disease progression as the CA-27-29 gone up to 1346.70 on 08/20/2017 compared to 896.45 on 07/04/2017. Her chemotherapy with Xeloda and lapatinib was discontinued and decided to switch her to weekly Herceptin and Taxane , patient doesn't want take steroids so we recommended Herceptin and Abraxane combination. She did develop nausea vomiting abdominal pain with her last dose of Zometa and doesn't want to take Zometa anymore. We will switch her to Xgeva. There was delay in getting started with the Herceptin/Abraxane. She apparently had positive TB test which required workup and eventually was found to be a false positive. She began her first cycle of Herceptin and Abraxane on 10/09/2017.Last dose of Abraxane/Herceptin was given on 12/17/2017 and because of intolerance Abraxane was discontinued and last dose of Herceptin was given on 12/31/2017 Mrs Santamaria was seen by Dr. Ramirez, oncologist at [facility], for clinical trial and many clinical trials available but due to transportation and financial reasons, patient could not consider any of them. Palliative chemotherapy with carboplatin/gemcitabine/Herceptin or eribulin /Herceptin was recommended. Patient had bone scan and CT scan of chest abdomen done at [facility] which showed widespread metastatic disease. She began chemotherapy with weekly carboplatin, gemcitabine and trastuzumab on 04/15/2018 Follow-up CT PET scan done on 07/05/2018 showed improvement in hepatic metastatic disease since April 2017 study Mixed response to multiple bilateral pulmonary lesion Reactive marrow with splenic activity Osseous metastatic disease seen on April 2017 study is sclerotic and FDG negative Mrs Santamaria was admitted to hospital with abdominal pain and diagnosed with diverticulitis treated successfully with antibiotics and during this time, CT scans of chest abdomen pelvis were done on 07/30/2018 . The scans showed extensive pulmonary metastases and hepatic metastases and bone metastases, stable when compared with CT PET scan done in June 2018. She continued with treatment with carboplatin/gemcitabine/Herceptin. Follow-up CT PET scan done on 10/25/2018 showed mild improvement in hepatic, pulmonary and osseous metastatic disease. She has continued with chemotherapy with weekly Carboplatin, gemcitabine and Herceptin. She is receiving Neupogen support on and Saturday after her treatment on Saturday. She was getting the Neupogen at [place], [place]. She tolerated this plan well. She continues to have exertional shortness of breath but states it is no worse than what is has been but it is no better either. She denies any angina type pain but thinks she may have palpatations once in a while with the shortness of breath. She denies orthopnea. She denies any cough. She does have a very strong family history of CAD-both parents with her father's first VT in his 30's and both brothers have CAD. She has never had a diagnosis of CAD. She did have an echocardiogram on 11/07/2018 that reported EF of 60%-unchanged from previous echo. She reported she had a bug bite on her right breast reconstruction site around where the nipple should be. She states it presented as a big blister then it popped and then formed a scabbed area but no drainage. She had been applying triple antibotic ointment to it. She was referred to plastic surgery at [facility] and ulimately underwent right breast implant removal in December 2018, as per patient and there was no evidence of breast cancer in the specimen. Her chemotherapy was delayed because of dental procedure from 12/30/2018 to 02/04/2019. She resumed treatment on 02/04/2019. Echocardiogram done on 03/09/2019 showed Ejection fraction was 68%. Mrs Santamaria underwent restaging PET/Ct on 04/21/2019. The PET/CT apparently was not compared to the scan she had on 10/25/2018. A review/comparison and an addended report has been requested. However in the interim we discussed the findings of her April 21, 2019 PET in relation to the October 25, 2018 PET. There were multiple pulmonary nodules present with the largest at the right base posteromedially measuring 4.9 x 2 point centimeters with a maximum SUV of 6.71. The results of that SUV on the October 25, 2018 report is somewhat blurry but looks to be 8.4 possibly 6.4 but indicates that the pulmonary nodules are relatively stable. The maximum SUV in the liver was 3.31 and on the October 2018 scan was 5.1. did compare the reports and felt that Soledad had had some improvement in her overall disease. We of course are waiting for the final review and updated report. These findings have been discussed with Mrs Santamaria she understands that it will be compared with the one in October. She has had persistent right arm numbness and has an appointment with Dr Matthew soto for followup on that. She now has noticed right leg numbness. It comes and goes but seems to be lasting longer when it does come. She has had no TIA symptoms. MRI scan of the head done on 05/07/2019 showed no evidence of brain metastases. Due to hyperintense enhancing 9 x 6 mm intrapituitary lesion in the left aspect of pitiutary. Normal optic chasm. Slight [id number] mass effect on the infundibulum. Consistent with a pituitary adenoma. 10 mm metastatic C2 vertebral body lesions likely previously treated. She has continued with carboplatin, gemcitabine and Herceptin. She is also getting monthly Xgeva. Echocardiogram done on November 07, 2018 showed ejection fraction around 65% and appears unchanged from before Echocardiogram done on September 24, 2019 showed ejection fraction 55 -60% CT PET scan done on October 14, 2019 showed increasing metabolism of existing pulmonary nodules e.g. dominant pulmonary nodule within the medial right lower lobe with SUV of 8.3 compared to 6.7 in April 2019 and medial left lower lobe nodule is 1.4 x 1.3 cm with SUV 7 compared to 1.1 x 4 cm with SUV of 2.3 but no new lung nodule In abdomen increase in size of dominant cyst within central portion of liver measuring 6.7 x 5.1 with SUV of 8.1 compared to 4.8 by with SUV of 6 there is a new hypermetabolic lesion within the right lower lobe of the liver, size 0.9 cm with maximum SUV 6 increasing hypermetabolic activity in the existing osseous metastasis without new lesion identified e.g. in the sacrum SUV 6.9 compared to 4.6 previously. Due to the disease progression,she was recommended further treatment with Enhertu (fam-trastuzumab deruxtecan) an anti-HER2; monoclonal antibody; antineoplastic agent, topoisomerase I inhibitor. She began her first cycle on 11/05/2019 .Follow-up CT PET scan done after 5 doses of Enhertu on February 16, 2020 showed good response lung, liver and osseous lesion have all improved, new scattered lung and mediastinal findings may reflect inflammatory changes only. Came for follow-up, denies any specific complaints, no fever chills, no nausea or vomiting, no diarrhea or constipation, no new bony pains, no headaches blurry or double vision, patient says she is tolerating 4 weekly schedule with Enhertu better than 3 weekly. Medications: Claritin 1 Tablet (of 10 mg) Oral daily, Magnesium 1 Tablet Oral daily PRN, Multivitamin Adults 1 Tablet Oral daily PRN, Potassium 1 Tablet (of 99 mg) Oral daily PRN, Prevacid 1 Capsule (of 30 mg) Capsule Delayed Release Oral b.i.d., Vitamin C 1 Tablet Oral daily PRN Allergies: Codeine Sulfate Review of Systems: Review of Systems is not available for this patient. Vital Signs: Performed on Apr 25, 2020 10:37 Height - 67.00 in Weight - 139.8 lbs BSA - 1.74 sq.m BMI - 21.90 Temperature - 98.3 F (LOW) Pulse - 92 /min Respiration - 18 /min BP - 132/61 mm(hg) O2 Sat - 94 % (LOW) Pain - 0 Fatigue - 0 Performance Status: 1 - No physically strenuous activity, but ambulatory and able to carry out light or sedentary work (e.g. office work, light house work). (ECOG) Physical Examination: Respiratory - Lungs are clear to auscultation, Cardiovascular - Regular rate and rhythm of heart, Gastrointestinal - Soft, bowel sounds present, Extremities - No visible edema. Lab/Imaging: Test performed on Mar 25, 2020 09:53 Sodium 137 mmol/L Potassium 3.9 mmol/L Chloride 101 mmol/L CO2 27 mmol/L Anion Gap 12.9 BUN 9 mg/dL Creatinine 0.6 mg/dL Cr Clearance (Est) 101.7100 mL/min eGFR 101.0 mL/min Glucose 71 mg/dL Osmolality - Calculated 281 mOsm/kg Calcium 9.2 mg/dL Protein, Total 6.8 g/dL Albumin 3.8 g/dL Globulin 3.0 g/dL Bilirubin, Total 0.5 mg/dL ALT (SGPT) 24 U/L AST (SGOT) 38 U/L Alkaline Phosphatase 294 IU/L WBC 6.1 10 3/uL RBC 3.48 10 6/uL HGB 12.2 g/dL HCT 38.2 % MCV 109.8 fL MCH 35.1 pg MCHC 31.9 g/dL RDW 16.9 % Platelet Count 358 10 3/cmm MPV 9.8 fL Neutrophils 2.58 10 3/uL Lymphocytes 2.2 10 3/uL Monocytes 1.0 10 3/uL Eosinophils 0.3 10 3/uL Basophils 0.1 10 3/uL Neutrophil % 42.3 % Lymphocyte % 35.8 % Monocyte % 16.3 % Eosinophil % 4.3 % Basophils % 1.0 % NRBC % 0 % Test performed on Feb 24, 2020 11:37 Ua Color Yellow Ua Appearance SL Hazy Ua Glucose Norm Ua Bilirubin Neg Ua Ketones Negative Ua Specific Oaks 1.010 Ua Blood Neg Ua pH 5 Ua Protein Neg Ua Nitrites Negative Ua Leukocyte Esterase 1+ Ua Micro: WBC >100 /hpf Urine Culture CC 50 CFU/ml Ua Micro: RBC NONE /hpf Ua Micro: Squam Epith Cells RARE /hpf Ua Micro: Bacteria TRACE /hpf Test performed on Nov 11, 2019 08:21 Manual Lymphocytes 16.6 % Manual Monocytes 2.3 % Manual Eosinophils 4.4 % Manual Basophils 0.4 % Impression: History of left breast cancer with metastases to left scapula status post bilateral mastectomy and left axillary lymph node dissection followed by radiation therapy to left chest wall and axilla in 2008 in [facility] in [facility] status post 1 year of Herceptin and paclitaxel and Arimidex for some time status post radiation therapy to left scapula biopsy-proven metastases Medical record obtained from [facility] [place], [place] and ER/MS positive HER-2/oneida overexpression positive it shows #1 presentation with abnormal screening mammogram in 2010. Patient underwent neoadjuvant chemotherapy with weekly paclitaxel and Herceptin for 12 cycle from May Treated with neoadjuvant chemotherapy FEC plus Herceptin from August 2010 through October 2010 In November 2010 she undergoes bilateral simple mastectomy with pathology demonstrating pT2 N2 disease Mrs Santamaria completed 1 year of adjuvant Herceptin therapy with adjuvant aromatase inhibitor In October 2011 patient transitioned to single agent tamoxifen due to poor tolerance of aromatase inhibitor therapy In October 2012 patient presented with left scapular pain imaging demonstrates abnormal bones lesion with biopsy notable for ER/MS positive HER-2/oneida overexpressing breast cancer, staging evaluation demonstrated bilateral pulmonary nodules with mediastinal lymphadenopathy On 12/16/2012 patient initiates letrozole plus Herceptin plus PERJETA on clinical trial On 02/22/2015 patient demonstrates subjective progression of disease within lungs On 02/25/2015 initiated on KADCYLA History of metastatic disease status post chemotherapy with different agents on multiple occasions most recent hormonal agent was letrozole 2.5 mg Elevated tumor markers [place] [address] scan of chest abdomen pelvis done on 10/10/2016 showed multiple bilateral pulmonary nodules consistent with metastatic disease multiple lytic lesion including posterior aspect of T12 vertebral body related dissection of much of right side of T10 vertebra and a large lytic lesion involving the roof of the right acetabulum and right iliac wing and focus of due to dissection lesion in right ischium Stable tiny low-attenuation abnormalities within the liver most likely consistent with multiple tiny cysts Pulmonary emphysema 8 ON 09/24/2016 CA 15.3 342.6 CA 27- 29 493.59 Upper mid back pain and right hip pain due to bone metastases questionable cord compression. She did have restaging with PET/CT on 11/03/2016. The PET/CT revealed multiple FGD avid osteolytic metastases in the left scapula, posterior left 9th rib, T10, T12 and the anterior right acetabulum. Multiple FDG avid metastatic pulmonary nodules represented by 1.9 cm nodule in the posterbasal segment of the right lower lobe with an SUV of 5 and a 1.7 cm nodule in the anterrobasal segment of the left lower lobe with an SUV of 5.1. No hepatic or adrenal metastases identified. Mrs Santamaria was referred to [facility] radiation oncology and underwent radiation to the right hip, left scapula, T10-T12 spine. Her pain resolved with the radiation. offered her palliative chemotherapy with Navelbine and Herceptin. She has agreed to a trial of the chemotherapy. CT scan of the chest August 2017 reported disease progression in the chest and evidence of possible hepatic involvement as well as possible metastatic site involving the left 12th rib. PET/CT scan done on 03/02/2017 showed multiple FDG avid metastatic pulmonary nodules represented by 1.9 cm nodule in the posterior basal segment of right lower lobe with SUV 9.6 compared to 5 on prior exam and a 1.7 cm nodule in the anterior basal segment of left lower lobe with SUV of 4.9 compared to 4.1 on prior exam. There were multiple new hepatic metastatic lesions represented by 1.7 cm nodule with SUV of 5.4 in the anterior superior segment right upper lobe. The PET/CT also reported bone metastasis the left anterior superior iliac spine posteriorly right sacroiliac and T10 T12 right acetabulum, left scapula and posterior left eighth rib. MRI scan of C-spine done on 02/28/2017 showed metastatic lesion of C2 vertebral body. Additional foci of metastatic disease may involve C6 and T1 vertebral bodies multiple disc bulging and spondylosis at C5/C6 and C6/C7 with mild anterior impingement Episode of rectal bleed/abdominal pain probably due to diverticulitis/diverticular bleed CT scan of chest abdomen pelvis done on 03/31/2017 showed pulmonary metastatic disease with variable size of some of the lesion since 10/30/2016 some lesions are smaller and other are larger hepatic and bone metastatic disease similar to the prior exam CT PET scan done on 04/27/2017 showed osseous lesion in left half of C1, and right T1 transverse process and left T1 pedicle, the L1 vertebral body, and L2 vertebral body shows no changes. However, pelvic metastatic disease has worsened with SUV 8.2 compared to 4.1 previously but she is status post radiation therapy to her pelvic bones., Multifocal hepatic metastatic disease is progressed , with SUV 9.8 compared to 5.4 earlier, bilateral hypermetabolic pulmonary nodules are unchanged and right hilar malignant node demonstrated progression Started on lapatinib and Xeloda on 06/08/2017 then it was placed on hold due to radiation therapy to left hip pain. Left posterior hip pain due to bone metastases status post radiation to right hip. Status post radiation therapy to C-spine could complete 9 out of 12 recommended doses because of severe radiation-induced pharyngitis , finished on 06/25/2017 Status palliative post radiation to hip, finished on 06/26/2007 Tumor marker CA-27-29 gone up to 1346.70 on 08/20/2017 from 896.45 on 07/04/2017 Lapatinib and Xeloda discontinued on 08/26/2017 and her treatment plan changed to weekly Herceptin and Taxane 3 weeks on and 1 week off with followup PET/CT after the third cycle. She had GI issues with Zometa ( an episode of nausea vomiting and abdominal pain) so she refuses to repeat the Zometa. She will be offered Xgeva 120 mg every month instead of the Zometa. She began her first cycle of Abraxane and Herceptin on 10/09/2017.Till 12/17/2017 at that time Abraxane was discontinued because of intolerance and last dose of Herceptin was given on 12/31/2017 and because of progressive weakness and fatigue this was also discontinued Patient was referred to [facility] she was seen by Dr. Ramirez on 03/31/2018, many clinical trials are available but due to transportation and financial reason patient could not consider any of them. So palliative chemotherapy with erbulin /Herceptin or carboplatin/gemcitabine/Herceptin was recommended. She did discontinue letrozole on 04/07/2018 and it was recommended that she start on weekly carboplatin AUC 2/gemcitabine 1000 mg/m2/Herceptin day 1, 8 and 15 every 28 days. Along with monthly Xgeva. She began her first cycle on 04/15/2018 .Follow-up CT PET scan done on 07/05/2018 showed hepatic metastatic disease has improved when compared with CT PET scan done in April 2017 and index lesion in the right hepatic dome has now significant central necrosis. There was a mixed response to multiple lung nodules, a left upper lobe nodules is unchanged in size at 1.6 cm but has SUV 3.8 compared to 5.6 before similar improvement is present in the posterior right lower lobe nodule and left lung base nodules. However there are new lesions in the right middle and medial right lobes, the 2 new lesions in the medial right lobe have SUV of 289 and right middle lobe measures 2.6 cm with SUV of 6.8. Multiple osseous lesion seen previously were sclerotic and FDG negative. Suspicious uptake is identified in left femoral neck and proximal right femur and L2. Mrs Santamaria continues with Carboplatin, gemcitabine and Herceptin and monthly Xgeva. She does require intermittent support with growth factors to keep her blood counts up in order to stay on the treatment plan. Follow-up CT PET scan done on 10/25/2018 showed multiple hepatic lesions are seen on prior studies on 07/05/2018 or minimally improved in size and now with improved SUV. Mild improvement in bilateral lung nodules both in size and SUV. Mild improvement is noted in multifocal osseous metastatic disease. Follow-up echocardiogram done on 11/07/2018 showed ejection fraction around 60%. She continued with weekly Carboplatin/gemcitabine and Herceptin. She has completed 11 full cycles and had restaging imaging on 04/21/2019. She had a PET/CT at [facility] on 04/21/2019. The PET/CT apparently was not compared to the scan she had on 10/25/2018. A review/comparison and an addended report has been requested. However in the interim we discussed the findings of her April 21, 2019 PET in relation to the October 25, 2018 PET. There were multiple pulmonary nodules present with the largest at the right base posteromedially measuring 4.9 x 2 point centimeters with a maximum SUV of 6.71. The results of that SUV on the October 25, 2018 report is somewhat blurry but looks to be 8.4 possibly 6.4 but indicates that the pulmonary nodules are relatively stable. The maximum SUV in the liver was 3.31 and on the October 2018 scan was 5.1. did compare the reports and felt that Soledad had had some improvement in her overall disease. She continued with chemotherapy with carboplatin gemcitabine and Herceptin. As her recent PET scan confirms disease progression she will discontinue her current chemo regimen with Herceptin/carboplatin/gemcitabine and prior approval was requested for Fam Trastuzumab deruxtecan (Enhertu). Dr Pitts had discussed the side effects possible benefits associated with Enhertu including but not limited to allergic reaction, nausea vomiting, fatigue, hair loss,, pneumonitis, neuropathy, bone marrow suppression amongst others. Mrs Santamaria has consented to treatment and we do have approval from insurance. BREAST CANCER TREATMENT HISTORY SUMMARY Paclitaxel Herceptin for 12 cycles from May 2010 to August 2010 [facility]EC and Herceptin through October 2010 Aromatase inhibitor began in October 2010 Bilateral mastectomies November 2010???postmastectomy radiation completed 03/21/2011 Tamoxifen 2013 Clinical trial with Herceptin, Perjeta and letrozole beginning November 2012 through February 2015 Kadcyla began in February 2015 but was stopped after 2-3 doses due to intolerance Radiation to the right hip, left scapula, T10-T12 spine in October 2016. She is also started on lapatinib and Xeloda which continued through August 2017. She had elevation of tumor markers and at that time was switched to Herceptin and Abraxane on 10/09/2017. She stopped the Abraxane after her last dose on 12/17/2017 because of intolerance and Herceptin was then given on 12/31/2017. She was referred to [facility] for possible clinical trials but due to transportation and financial reasons she could not consider any of them. She began palliative chemotherapy with carboplatin gemcitabine and trastuzumab on 04/15/2018. She was also getting monthly Xgeva. She is remained on this regimen until her most recent PET/CT from October 2019 which is show disease progression. She will be transitioned to Enhertu (11/05/2019). Plan: Discussed with patient regarding her labs white blood count 5.2 hemoglobin 11.6 hematocrit 35.9 platelets 300,000 CMP within normal limit except alk phos 245 compared to 294 on March 25, 2020 and AST 36 Clinically, patient doing well with no signs symptom suggestive of disease progression, tolerating Enhertu better on 4 weekly basis, will proceed with next dose today and then she will return to clinic in 1 month with CBC CMP if reasonable for Enhertu. Signed By: Kortney Pitts M.D. <<Signature on File>>
[2020-05-16 09:54] LABS: Basophils % 1.1 %; Eosinophils # 0.2 10^3/uL (0.0-0.8); Eosinophils % 6.6 %; Hematocrit 35.7 % (37.0-47.0); Hemoglobin 11.3 g/dL (11.5-15.3); Lymphocytes # 1.2 10^3/uL (0.8-4.8); Lymphocytes % 33.5 %; Mean Corpuscular HGB Conc 31.7 g/dL (30.0-36.0); Mean Corpuscular Hemoglobin 35.4 pg (28.0-34.0); Mean Corpuscular Volume 111.9 fL (81-99); Mean Platelet Volume 9.6 fL (7.4-10.4); Monocytes # 0.7 10^3/uL (0.2-0.9); Monocytes % 18.6 %; Neutrophils # 1.43 10^3/uL (1.8-7.7); Neutrophils % 39.6 %; Nucleated Red Blood Cells % 0 %; Platelet Count 269 10^3/cmm (130-400); Red Blood Count 3.19 10^6/uL (4.1-5.3); Red Cell Distribution Width 16.1 % (12.1-15.1); White Blood Count 3.6 10^3/uL (4.0-10.0)
[2020-05-16 10:06] LABS: Alanine Aminotransferase 22 U/L (0-33); Albumin Level 3.3 g/dL (3.5-5.2); Alkaline Phosphatase 244 IU/L (35-105); Aspartate Amino Transferase 34 U/L (0-32); Blood Urea Nitrogen 9 mg/dL (8-23); Calcium 8.6 mg/dL (8.5-10.5); Carbon Dioxide 24 mmol/L (22-29); Chloride 105 mmol/L (98-107); Globulin 3.2 g/dL (1.3-4.6); Glomerular Filtration Rate 124.6 mL/min (90-130); Glucose 112 mg/dL (65-115); Osmolality Calculated 283 mOsm/kg (285-295); Sodium 137 mmol/L (136-145); Total Bilirubin 0.3 mg/dL (0.15-1.2); Total Protein 6.5 g/dL (6.6-8.7)
[2020-05-16 10:10] LABS: Anion Gap 11.9 (5-19); Potassium 3.9 mmol/L (3.5-5.1)
--- NOTE | 2020-05-16 22:17 | ONC FU_ITS ---
Kerri Wolfe Patient Note Patient: Soledad Santamaria Unit #: [id number]: [id number] Dictated By: Liliana BernsteinDate of Visit: May 16, 2020 Onc MED Follow-Up/Prog Note Chief Complaint: Metastatic breast cancer History of Present Illness: Mrs. Santamaria is a 64-year-old female with history of left breast carcinoma with bone metastasis. She presented with an abnormal mammogram in 2010. She had apparently had detected an left-sided breast mass in late 2009. She was referred to Dr Gadiel Reed @ [facility] in [place], [place]. In April 2010, she underwent needle core biopsy of the left breast that did confirm invasive ductal carcinoma histological grade 2/3, ER+ [place]+ and Her 2 [place] immunostain was 3+. She also had biopsy of a left axillary lymph node that was positive for invasive carcinoma with no lymphoid tissue identified. Her exam prior to chemo revealed a 3 cm mass in the extreme upper outer aspect of the left breast and multiple palpable enlarged lymph nodes-the largest was 2 cm and mobile.. Further workup included a breast MRI which did show biopsy proven malignancy in the left upper outer quadrant measuring 3.3 cm with associated axillary and subpectoral adenopathy. She had multiple satellite nodes with the largest measuring 7 cm. She did undergo MRI guided biopsy on June 08, 2010, which did report invasive cancer. She did have CT of the chest and a bone scan which did not show distant disease,. However, there was an enlarged lymph node in the subcutaneous tissues posterior to the left scapula and was biopsied on May 26, 2010 and was negative for malignancy. She under went neoadjuvant chemotherapy with weekly paclitaxel and Herceptin for 12 cycles from May 2010 to August of 2010 followed by FEC and Herceptin through October 2010. She completed 1 year of Herceptin in May 2011 during which time she was also taking an AI. She did have febrile neutropenia requiring admission in September 2010. She underwent bilateral mastectomies( for abnormal mammogram findings in the right breast) at [facility] in [facility] in November 2010. She did have post mastectomy radiation completed on 03/21/2011. She then underwent reconstruction with bilateral breast implants. Unfortunately in November 2011, the left implant became infected and had to be removed. During work up of the implant abnormality she has found to have a metastatic lesion in her left scapula. She did not have any problems until November of 2012 at which time she was having generalized bone pain, which she thought was a combination of Actonel and Anastrozole. The pain did not improve with stopping these medications. She was transitioned to single agent Tamoxifen. A bone scan revealed increased activity along the lateral margin of the left scapula suspicious of osseous metastatic disease when compared to the bone scan from November 2011. This lesion was biopsied on 12/01/2012 and revealed metastatic disease consistent with the breast primary. She did not have radiation at that time as she was not having significant pain. Mrs Santamaria was restaged and found to have diffuse pulmonary nodules and mediastinal lymphadenopathy and in November 2012, she was enrolled in a clinical trial with Herceptin. Perjeta and Letrozole. She had restaging in March 2014 that revealed slight progression of her pulmonary nodules which did not meet criteria for end point results of the clinical trial and was taken off the trial. Her bone scan was reported as stable. She transferred her care to [facility] in [place], [place] to the care of Dr Mehran Jacobson III in May 2014 due to the difficulty traveling to [facility]. The treatment of letrozole, Herceptin and Perjeta was continued until she disease progression and was changed to Kadcyla in February 2015 after restaging imaging revealed disease progression.And she could not tolerate and it was discontinued after 2 or 3 doses. INTERIM HISTORY: Mrs Santamaria was referred to us in October 2016 for followup at which time, Mrs Santamaria was having right upper back pain, left chest wall pain and right groin pain. She did have restaging with PET/CT on 11/03/2016. The PET/CT revealed multiple FGD avid osteolytic metastases in the left scapula, posterior left 9th rib, T10, T12 and the anterior right acetabulum. Multiple FDG avid metastatic pulmonary nodules represented by 1.9 cm nodule in the posterbasal segment of the right lower lobe with an SUV of 5 and a 1.7 cm nodule in the anterrobasal segment of the left lower lobe with an SUV of 5.1. No hepatic or adrenal metastases identified. Mrs Santamaria was referred to [facility] radiation oncology and underwent radiation to the right hip, left scapula, T10-T12 spine. Her pain resolved with the radiation, offered her palliative chemotherapy with Navelbine and Herceptin. She had agreed to a trial of the chemotherapy. Follow-up CT PET scan showed disease progression chemotherapy was discontinued and she was referred to radiation oncology for palliative radiation therapy. After this cycle of radiation therapy, she was started on lapatinib and Xeloda. She was tolerating it well but she was referred to radiation for C-spine metastases management. At that time her chemotherapy was put on hold. She developed right hip pain for which she received palliative radiation therapy to the 06/25/2017. The lapatinib and Xeloda was restarted but her follow-up tumor markers showed evidence of disease progression as the CA-27-29 gone up to 1346.70 on 08/20/2017 compared to 896.45 on 07/04/2017. Her chemotherapy with Xeloda and lapatinib was discontinued and decided to switch her to weekly Herceptin and Taxane , patient doesn't want take steroids so we recommended Herceptin and Abraxane combination. She did develop nausea vomiting abdominal pain with her last dose of Zometa and doesn't want to take Zometa anymore. We will switch her to Xgeva. There was delay in getting started with the Herceptin/Abraxane. She apparently had positive TB test which required workup and eventually was found to be a false positive. She began her first cycle of Herceptin and Abraxane on 10/09/2017.Last dose of Abraxane/Herceptin was given on 12/17/2017 and because of intolerance Abraxane was discontinued and last dose of Herceptin was given on 12/31/2017 Mrs Santamaria was seen by Dr. Ramirez, oncologist at [facility], for clinical trial and many clinical trials available but due to transportation and financial reasons, patient could not consider any of them. Palliative chemotherapy with carboplatin/gemcitabine/Herceptin or eribulin /Herceptin was recommended. Patient had bone scan and CT scan of chest abdomen done at [facility] which showed widespread metastatic disease. She began chemotherapy with weekly carboplatin, gemcitabine and trastuzumab on 04/15/2018 Follow-up CT PET scan done on 07/05/2018 showed improvement in hepatic metastatic disease since April 2017 study Mixed response to multiple bilateral pulmonary lesion Reactive marrow with splenic activity Osseous metastatic disease seen on April 2017 study is sclerotic and FDG negative Mrs Santamaria was admitted to hospital with abdominal pain and diagnosed with diverticulitis treated successfully with antibiotics and during this time, CT scans of chest abdomen pelvis were done on 07/30/2018 . The scans showed extensive pulmonary metastases and hepatic metastases and bone metastases, stable when compared with CT PET scan done in June 2018. She continued with treatment with carboplatin/gemcitabine/Herceptin. Follow-up CT PET scan done on 10/25/2018 showed mild improvement in hepatic, pulmonary and osseous metastatic disease. She has continued with chemotherapy with weekly Carboplatin, gemcitabine and Herceptin. She is receiving Neupogen support on and Saturday after her treatment on Saturday. She was getting the Neupogen at [place], [place]. She tolerated this plan well. She continues to have exertional shortness of breath but states it is no worse than what is has been but it is no better either. She denies any angina type pain but thinks she may have palpatations once in a while with the shortness of breath. She denies orthopnea. She denies any cough. She does have a very strong family history of CAD-both parents with her father's first CA in his 30's and both brothers have CAD. She has never had a diagnosis of CAD. She did have an echocardiogram on 11/07/2018 that reported EF of 60%-unchanged from previous echo. She reported she had a bug bite on her right breast reconstruction site around where the nipple should be. She states it presented as a big blister then it popped and then formed a scabbed area but no drainage. She had been applying triple antibotic ointment to it. She was referred to plastic surgery at [facility] and ulimately underwent right breast implant removal in December 2018, as per patient and there was no evidence of breast cancer in the specimen. Her chemotherapy was delayed because of dental procedure from 12/30/2018 to 02/04/2019. She resumed treatment on 02/04/2019. Echocardiogram done on 03/09/2019 showed Ejection fraction was 68%. Mrs Santamaria underwent restaging PET/Ct on 04/21/2019. The PET/CT apparently was not compared to the scan she had on 10/25/2018. A review/comparison and an addended report has been requested. However in the interim we discussed the findings of her April 21, 2019 PET in relation to the October 25, 2018 PET. There were multiple pulmonary nodules present with the largest at the right base posteromedially measuring 4.9 x 2 point centimeters with a maximum SUV of 6.71. The results of that SUV on the October 25, 2018 report is somewhat blurry but looks to be 8.4 possibly 6.4 but indicates that the pulmonary nodules are relatively stable. The maximum SUV in the liver was 3.31 and on the October 2018 scan was 5.1. did compare the reports and felt that Soledad had had some improvement in her overall disease. We of course are waiting for the final review and updated report. These findings have been discussed with Mrs Santamaria she understands that it will be compared with the one in October. She has had persistent right arm numbness and has an appointment with Dr Matthew soto for followup on that. She now has noticed right leg numbness. It comes and goes but seems to be lasting longer when it does come. She has had no TIA symptoms. MRI scan of the head done on 05/07/2019 showed no evidence of brain metastases. Due to hyperintense enhancing 9 x 6 mm intrapituitary lesion in the left aspect of pitiutary. Normal optic chasm. Slight [id number] mass effect on the infundibulum. Consistent with a pituitary adenoma. 10 mm metastatic C2 vertebral body lesions likely previously treated. She has continued with carboplatin, gemcitabine and Herceptin. She is also getting monthly Xgeva. Echocardiogram done on November 07, 2018 showed ejection fraction around 65% and appears unchanged from before Echocardiogram done on September 24, 2019 showed ejection fraction 55 -60% CT PET scan done on October 14, 2019 showed increasing metabolism of existing pulmonary nodules e.g. dominant pulmonary nodule within the medial right lower lobe with SUV of 8.3 compared to 6.7 in April 2019 and medial left lower lobe nodule is 1.4 x 1.3 cm with SUV 7 compared to 1.1 x 4 cm with SUV of 2.3 but no new lung nodule In abdomen increase in size of dominant cyst within central portion of liver measuring 6.7 x 5.1 with SUV of 8.1 compared to 4.8 by with SUV of 6 there is a new hypermetabolic lesion within the right lower lobe of the liver, size 0.9 cm with maximum SUV 6 increasing hypermetabolic activity in the existing osseous metastasis without new lesion identified e.g. in the sacrum SUV 6.9 compared to 4.6 previously. Due to the disease progression,she was recommended further treatment with Enhertu (fam-trastuzumab deruxtecan) an anti-HER2; monoclonal antibody; antineoplastic agent, topoisomerase I inhibitor. She began her first cycle on 11/05/2019. .Follow-up CT PET scan done after 5 doses of Enhertu on February 16, 2020 showed good response lung, liver and osseous lesion have all improved, new scattered lung and mediastinal findings may reflect inflammatory changes only. The frequency of her treatment was prolonged to 4 weeks instead of 3 weeks due to performance status and Mrs Santamaria states she is doing better with the longer cycles. Mrs. Santamaria is here today for follow-up. She is due for cycle 9 Enhertu. Her last treatment was on April 25, 2020. It is only been 3 weeks since treatment and she has been going either 3 or 4 weeks. She states that over the weekend she felt bad and was just sick . She states that she did have a lot of diarrhea yesterday and felt bad for about 2 days with that and was about 2 days prior to that that she also had achiness significant fatigue and pain in her lower back. She states the aching and fatigue is better but she continues to have pain in her lower back. She states that she has had pain in her left leg and hand and sometimes in her right leg feels like it is hard to stand on because it is asleep . She is also had some upper neck pain. She states that she has had a bad headache with a new chemotherapy . She states it generally starts on and last for 2 to 3 days. She also had nausea that also started about after treatment on Saturday. She states that she tries to take her vitamins she will have dry heaves. She states the headache gets to the point that it is almost at my old migraine level . She said so far the headache is always occurred on after she was treated on Saturday. She denies any headache right after treatment as I was suspicious that her headache could be caused by the Aloxi but seems less likely as it is occurring when Aloxi may be wearing off. We discussed at length having her try Zofran and 2 Tylenol tablets Saturday night at bedtime to see if we could zepeda off the nausea and the headache. She denies any new shortness of breath orthopnea. She denies any hemoptysis or cough. She denies any chest pain or palpitations. She states her bowel and bladder are normal for her. She currently has no nausea. She remains active. She states she has been wanting to go to work and a friend screen house and may plan to do that later this week if she feels up to it. She states other than her left leg and hand being numb and tingly as well as the right leg at times she feels pretty good overall. She states that her legs feel like they are asleep when this occurs. Her ECOG is 1. Past Medical History: Cancer (breast (left)) in 2008 Past Surgical History: Cholecystectomy Colonoscopy Hysterectomy Nisson wrap Right breast implant removed Tonsillectomy Flu vacc in 2019 Flu vaccine in 2019 - Given in right deltoid/lc Flucevax in 2018 - right deltoid Portacatheter in 2017 Mastectomy in 2008 - bilateral October of 2015. She had an unknown rupture and repair Allergies: Codeine Sulfate Medications: Claritin 1 Tablet (of 10 mg) Oral daily Magnesium 1 Tablet Oral daily PRN Multivitamin Adults 1 Tablet Oral daily PRN Potassium 1 Tablet (of 99 mg) Oral daily PRN Prevacid 1 Capsule (of 30 mg) Capsule Delayed Release Oral b.i.d. Vitamin C 1 Tablet Oral daily PRN Family History: Ms. Santamaria's mother at age 89: heart attack. Ms. Santamaria's father is alive. Social History: Ms. Santamaria is and she is a disabled. Ms. Santamaria quit smoking 14 years ago but had smoked 1.0 pack/day for 33 years. She has no history of drinking. Ms. Santamaria reports the following support systems: lives with spouse, significant other, family, or friends, lives in own house, supportive family/friends willing to assist with needs, and adequate transportation available for expected visits. Her diet consists of regular meals. She indicates her activity level as: daily activities. Review Of Symptoms: Constitutional Denies fevers, chills, night sweats, excessive fatigue or weight loss. Allergic/Immunologic No reactions. Eyes Denies significant visual changes. No diplopia. No amaurosis. ENMT Denies changes in hearing, sore throat, mouth sores, difficulty or changes in swallowing ability, and/or sinus drainage. Endocrine No diabetes, thyroid disease or hormone replacement. Denies hot flashes or night sweats. Hematologic/Lymphatic Denies easy bruising or bleeding. The patient denies any tender or palpable lymph nodes. Breasts Respiratory Denies dyspnea on exertion, chest pain, cough or hemoptysis. Denies orthopnea. Cardiovascular Denies anginal chest pain, palpitations or orthopnea. Gastrointestinal Denies SEVERE nausea, She states she has spare tmvomiting, diarrhea, GI bleeding, or constipation. Denies change in bowel habits and/or stool color, no heartburn or early satiety. Genitourinary (F) No hematuria, hesitancy, incontinence, vaginal bleeding, discharge or other problems with urination. Musculoskeletal Denies joint pain, swelling or redness. No decreased range of motion. Integumentary Denies chronic rashes, inflammation, ulcerations or skin changes. Neurologic Denies headache, blurred vision, and no areas of focal weakness or numbness. Normal gait. No sensory problems. Psychiatric Denies insomnia, depression, estelita or mood swings. Vital Signs: Performed on May 16, 2020 11:18 Height - 67.00 in Weight - 141.4 lbs (HIGH) BSA - 1.75 sq.m BMI - 22.15 Temperature - 96.9 F (LOW) Pulse - 85 /min Respiration - 17 /min BP - 123/73 mm(hg) O2 Sat - 91 % (LOW) Pain - 3,1 - No physically strenuous activity, but ambulatory and able to carry out light or sedentary work (e.g. office work, light house work). (ECOG) Physical Examination: Constitutional Alert, oriented, no acute distress. Skin pink, warm and dry. Head Normocephalic; atraumatic. Eyes Conjunctivae and sclerae are clear and without icterus. Pupils are reactive and equal. ENMT No mouth sores or yeast. Neck Supple without masses or thyromegaly. No jugular venous distension. Hematologic/Lymphatic No petechiae or purpura. Respiratory Lungs are diminished bilaterally to auscultation without rhonchi or wheezing. Cardiovascular Regular rate and rhythm of heart without murmurs,clicks, gallops or rubs. Abdomen Non-tender, non-distended, no masses or ascites. Good bowel sounds noted in all quads. No guarding or rebound tenderness. No pulsatile masses. Back/Spine Non-tender to palpation. Extremities No visible deformities, no cyanosis, clubbing or edema. Musculoskeletal No tenderness or swelling, normal range of motion without obvious weakness. Integumentary No rashes or lesions. Neurologic No sensory or motor deficits, normal cerebellar function, normal gait. Psychiatric Alert and oriented times three. Coherent speech. Verbalizes understanding of our discussions today. Laboratory:Test performed on May 16, 2020 09:34 Sodium 137 mmol/L Potassium 3.9 mmol/L Chloride 105 mmol/L CO2 24 mmol/L Anion Gap 11.9 BUN 9 mg/dL Creatinine 0.5 mg/dL Cr Clearance (Est) 122.0500 mL/min eGFR 124.6 mL/min Glucose 112 mg/dL Osmolality - Calculated 283 mOsm/kg Calcium 8.6 mg/dL Protein, Total 6.5 g/dL Albumin 3.3 g/dL Globulin 3.2 g/dL Bilirubin, Total 0.3 mg/dL ALT (SGPT) 22 U/L AST (SGOT) 34 U/L Alkaline Phosphatase 244 IU/L WBC 3.6 10 3/uL RBC 3.19 10 6/uL HGB 11.3 g/dL HCT 35.7 % MCV 111.9 fL MCH 35.4 pg MCHC 31.7 g/dL RDW 16.1 % Platelet Count 269 10 3/cmm MPV 9.6 fL Neutrophils 1.43 10 3/uL Lymphocytes 1.2 10 3/uL Monocytes 0.7 10 3/uL Eosinophils 0.2 10 3/uL Basophils 0.0 10 3/uL Neutrophil % 39.6 % Lymphocyte % 33.5 % Monocyte % 18.6 % Eosinophil % 6.6 % Basophils % 1.1 % NRBC % 0 % Test performed on Feb 24, 2020 11:37 Ua Color Yellow Ua Appearance SL Hazy Ua Glucose Norm Ua Bilirubin Neg Ua Ketones Negative Ua Specific [place] 1.010 Ua Blood Neg Ua pH 5 Ua Protein Neg Ua Nitrites Negative Ua Leukocyte Esterase 1+ Ua Micro: WBC >100 /hpf Urine Culture CC 50 CFU/ml Ua Micro: RBC NONE /hpf Ua Micro: Squam Epith Cells RARE /hpf Ua Micro: Bacteria TRACE /hpf Impression: History of left breast cancer with metastases to left scapula status post bilateral mastectomy and left axillary lymph node dissection followed by radiation therapy to left chest wall and axilla in 2008 in [facility] in [facility] status post 1 year of Herceptin and paclitaxel and Arimidex for some time status post radiation therapy to left scapula biopsy-proven metastases Medical record obtained from [facility]., [place] and ER/[place] positive HER-2/oneida overexpression positive it shows #1 presentation with abnormal screening mammogram in 2010. Patient underwent neoadjuvant chemotherapy with weekly paclitaxel and Herceptin for 12 cycle from May Treated with neoadjuvant chemotherapy FEC plus Herceptin from August 2010 through October 2010 In November 2010 she undergoes bilateral simple mastectomy with pathology demonstrating pT2 N2 disease Mrs Santamaria completed 1 year of adjuvant Herceptin therapy with adjuvant aromatase inhibitor In October 2011 patient transitioned to single agent tamoxifen due to poor tolerance of aromatase inhibitor therapy In October 2012 patient presented with left scapular pain imaging demonstrates abnormal bones lesion with biopsy notable for ER/[place] positive HER-2/oneida overexpressing breast cancer, staging evaluation demonstrated bilateral pulmonary nodules with mediastinal lymphadenopathy On 12/16/2012 patient initiates letrozole plus Herceptin plus PERJETA on clinical trial On 02/22/2015 patient demonstrates subjective progression of disease within lungs On 02/25/2015 initiated on KADCYLA History of metastatic disease status post chemotherapy with different agents on multiple occasions most recent hormonal agent was letrozole 2.5 mg Elevated tumor [place] [address] scan of chest abdomen pelvis done on 10/10/2016 showed multiple bilateral pulmonary nodules consistent with metastatic disease multiple lytic lesion including posterior aspect of T12 vertebral body related dissection of much of right side of T10 vertebra and a large lytic lesion involving the roof of the right acetabulum and right iliac wing and focus of due to dissection lesion in right ischium Stable tiny low-attenuation abnormalities within the liver most likely consistent with multiple tiny cysts Pulmonary emphysema 8 ON 09/24/2016 CA 15.3 342.6 CA 27- 29 493.59 Upper mid back pain and right hip pain due to bone metastases questionable cord compression. She did have restaging with PET/CT on 11/03/2016. The PET/CT revealed multiple FGD avid osteolytic metastases in the left scapula, posterior left 9th rib, T10, T12 and the anterior right acetabulum. Multiple FDG avid metastatic pulmonary nodules represented by 1.9 cm nodule in the posterbasal segment of the right lower lobe with an SUV of 5 and a 1.7 cm nodule in the anterrobasal segment of the left lower lobe with an SUV of 5.1. No hepatic or adrenal metastases identified. Mrs Santamaria was referred to [facility] radiation oncology and underwent radiation to the right hip, left scapula, T10-T12 spine. Her pain resolved with the radiation. offered her palliative chemotherapy with Navelbine and Herceptin. She has agreed to a trial of the chemotherapy. CT scan of the chest August 2017 reported disease progression in the chest and evidence of possible hepatic involvement as well as possible metastatic site involving the left 12th rib. PET/CT scan done on 03/02/2017 showed multiple FDG avid metastatic pulmonary nodules represented by 1.9 cm nodule in the posterior basal segment of right lower lobe with SUV 9.6 compared to 5 on prior exam and a 1.7 cm nodule in the anterior basal segment of left lower lobe with SUV of 4.9 compared to 4.1 on prior exam. There were multiple new hepatic metastatic lesions represented by 1.7 cm nodule with SUV of 5.4 in the anterior superior segment right upper lobe. The PET/CT also reported bone metastasis the left anterior superior iliac spine posteriorly right sacroiliac and T10 T12 right acetabulum, left scapula and posterior left eighth rib. MRI scan of C-spine done on 02/28/2017 showed metastatic lesion of C2 vertebral body. Additional foci of metastatic disease may involve C6 and T1 vertebral bodies multiple disc bulging and spondylosis at C5/C6 and C6/C7 with mild anterior impingement Episode of rectal bleed/abdominal pain probably due to diverticulitis/diverticular bleed CT scan of chest abdomen pelvis done on 03/31/2017 showed pulmonary metastatic disease with variable size of some of the lesion since 10/30/2016 some lesions are smaller and other are larger hepatic and bone metastatic disease similar to the prior exam CT PET scan done on 04/27/2017 showed osseous lesion in left half of C1, and right T1 transverse process and left T1 pedicle, the L1 vertebral body, and L2 vertebral body shows no changes. However, pelvic metastatic disease has worsened with SUV 8.2 compared to 4.1 previously but she is status post radiation therapy to her pelvic bones., Multifocal hepatic metastatic disease is progressed , with SUV 9.8 compared to 5.4 earlier, bilateral hypermetabolic pulmonary nodules are unchanged and right hilar malignant node demonstrated progression Started on lapatinib and Xeloda on 06/08/2017 then it was placed on hold due to radiation therapy to left hip pain. Left posterior hip pain due to bone metastases status post radiation to right hip. Status post radiation therapy to C-spine could complete 9 out of 12 recommended doses because of severe radiation-induced pharyngitis , finished on 06/25/2017 Status palliative post radiation to hip, finished on 06/26/2007 Tumor marker CA-27-29 gone up to 1346.70 on 08/20/2017 from 896.45 on 07/04/2017 Lapatinib and Xeloda discontinued on 08/26/2017 and her treatment plan changed to weekly Herceptin and Taxane 3 weeks on and 1 week off with followup PET/CT after the third cycle. She had GI issues with Zometa ( an episode of nausea vomiting and abdominal pain) so she refuses to repeat the Zometa. She will be offered Xgeva 120 mg every month instead of the Zometa. She began her first cycle of Abraxane and Herceptin on 10/09/2017.Till 12/17/2017 at that time Abraxane was discontinued because of intolerance and last dose of Herceptin was given on 12/31/2017 and because of progressive weakness and fatigue this was also discontinued Patient was referred to [facility] she was seen by Dr. Ramirez on 03/31/2018, many clinical trials are available but due to transportation and financial reason patient could not consider any of them. So palliative chemotherapy with erbulin /Herceptin or carboplatin/gemcitabine/Herceptin was recommended. She did discontinue letrozole on 04/07/2018 and it was recommended that she start on weekly carboplatin AUC 2/gemcitabine 1000 mg/m2/Herceptin day 1, 8 and 15 every 28 days. Along with monthly Xgeva. She began her first cycle on 04/15/2018 .Follow-up CT PET scan done on 07/05/2018 showed hepatic metastatic disease has improved when compared with CT PET scan done in April 2017 and index lesion in the right hepatic dome has now significant central necrosis. There was a mixed response to multiple lung nodules, a left upper lobe nodules is unchanged in size at 1.6 cm but has SUV 3.8 compared to 5.6 before similar improvement is present in the posterior right lower lobe nodule and left lung base nodules. However there are new lesions in the right middle and medial right lobes, the 2 new lesions in the medial right lobe have SUV of 289 and right middle lobe measures 2.6 cm with SUV of 6.8. Multiple osseous lesion seen previously were sclerotic and FDG negative. Suspicious uptake is identified in left femoral neck and proximal right femur and L2. Mrs Santamaria continues with Carboplatin, gemcitabine and Herceptin and monthly Xgeva. She does require intermittent support with growth factors to keep her blood counts up in order to stay on the treatment plan. Follow-up CT PET scan done on 10/25/2018 showed multiple hepatic lesions are seen on prior studies on 07/05/2018 or minimally improved in size and now with improved SUV. Mild improvement in bilateral lung nodules both in size and SUV. Mild improvement is noted in multifocal osseous metastatic disease. Follow-up echocardiogram done on 11/07/2018 showed ejection fraction around 60%. She continued with weekly Carboplatin/gemcitabine and Herceptin. She has completed 11 full cycles and had restaging imaging on 04/21/2019. She had a PET/CT at [facility] on 04/21/2019. The PET/CT apparently was not compared to the scan she had on 10/25/2018. A review/comparison and an addended report has been requested. However in the interim we discussed the findings of her April 21, 2019 PET in relation to the October 25, 2018 PET. There were multiple pulmonary nodules present with the largest at the right base posteromedially measuring 4.9 x 2 point centimeters with a maximum SUV of 6.71. The results of that SUV on the October 25, 2018 report is somewhat blurry but looks to be 8.4 possibly 6.4 but indicates that the pulmonary nodules are relatively stable. The maximum SUV in the liver was 3.31 and on the October 2018 scan was 5.1. did compare the reports and felt that Soledad had had some improvement in her overall disease. She continued with chemotherapy with carboplatin gemcitabine and Herceptin. As her recent PET scan confirms disease progression she will discontinue her current chemo regimen with Herceptin/carboplatin/gemcitabine and prior approval was requested for Fam Trastuzumab deruxtecan (Enhertu). Dr Pitst had discussed the side effects possible benefits associated with Enhertu including but not limited to allergic reaction, nausea vomiting, fatigue, hair loss,, pneumonitis, neuropathy, bone marrow suppression amongst others. Mrs Santamaria has consented to treatment and we do have approval from insurance. BREAST CANCER TREATMENT HISTORY SUMMARY Paclitaxel Herceptin for 12 cycles from May 2010 to August 2010 [facility] and Herceptin through October 2010 Aromatase inhibitor began in October 2010 Bilateral mastectomies November 2010???postmastectomy radiation completed 03/21/2011 Tamoxifen 2012 Clinical trial with Herceptin, Perjeta and letrozole beginning November 2012 through February 2015 Kadcyla began in February 2015 but was stopped after 2-3 doses due to intolerance Radiation to the right hip, left scapula, T10-T12 spine in October 2016. She is also started on lapatinib and Xeloda which continued through August 2017. She had elevation of tumor markers and at that time was switched to Herceptin and Abraxane on 10/09/2017. She stopped the Abraxane after her last dose on 12/17/2017 because of intolerance and Herceptin was then given on 12/31/2017. She was referred to [facility] for possible clinical trials but due to transportation and financial reasons she could not consider any of them. She began palliative chemotherapy with carboplatin gemcitabine and trastuzumab on 04/15/2018. She was also getting monthly Xgeva. She is remained on this regimen until her most recent PET/CT from October 2019 which is show disease progression. She will be transitioned to Enhertu (11/05/2019). Plan: PROBLEMS ADDRESSED TODAY 1. Metastatic breast cancer A. I am planning to hold her Enhertu today due to an ANC of 1430. Her ANC on day 1 of cycle 8 was 2710. She is not getting growth factors currently. She has tolerated them in the past but did have bone pain with them. B. Today's labs reviewed in detail and discussed with Mr. Mrs. Santamaria and a copy was given to them. WBC 3.6, hemoglobin 11.3 platelets 269,000 ANC 1430 potassium 3.9 creatinine 0.5 LFTs are normal. Her alk phos is chronically elevated and is improved today at 244.We have not been following her CA 27-29 or CA 15-3 regularly. C. I have asked Mrs. Santamaria to check her blood counts on Saturday so we can determine if she would possibly be recovered enough from the neutropenia to resume chemotherapy next week. 2. Chemotherapy induced neutropenia A. Labs are indicated as above. B. She is asymptomatic at this point. C. She has been advised on neutropenic precautions. D. She verbalizes who to call and how to get hold them after hours or on the weekend. 3. Follow-up plan A. She will continue her current treatment plan. B. She has not had Neulasta on pro and we may need to consider that with her next cycle if her counts are not recovered. C. We were discussing recent PET/CT. She thinks she had one recently in late winter possibly around December. I am not finding that in her chart and therefore request a copy of the report so that we could go over with her if needed. D. Labs from today were reviewed in detail and discussed with Mrs. Santamaria and a copy was given to her. WBC 3.6, hemoglobin 11.3, platelets 269,000 ANC is 1430. Sodium 137 random glucose 112. Potassium 11.3 LFTs are normal. E. Waiting for appointment set up with [facility] orthopedics for bilateral shoulder pain F. Mrs. Santamaria was instructed to call us in the interim if questions or problems arise. Signed By: Liliana Bernstein-, [facility] Kortney Pitts MD <<Signature on File>>
== END 2020-05-18 23:59 | disposition home or self-care (01) ==
LOC: ONCMED 05:20
PROVIDERS: Internal Medicine Hematology & Oncology; PCP Nurse Practitioner Family; Visit Provider Nurse Practitioner
DX: Z51.12 Encounter for antineoplastic immunotherapy (principal); C50.512 Malignant neoplasm of lower-outer quadrant of left female breast; Z17.0 Estrogen receptor positive status [ER+]; C79.51 Secondary malignant neoplasm of bone; C78.02 Secondary malignant neoplasm of left lung; C78.01 Secondary malignant neoplasm of right lung; D61.810 Antineoplastic chemotherapy induced pancytopenia; T45.1X5A Adverse effect of antineoplastic and immunosuppressive drugs, initial encounter; J43.9 Emphysema, unspecified; Z79.899 Other long term (current) drug therapy
CPT/HCPCS: 36591; 80053; 85025; 96367; 96375; 96413; 99214; 99215; J1100; J2469; J9358

== ENCOUNTER 2020-05-23 06:11 | Outpatient (RCR) | payer MEDICARE, SELFPAY ==
[2020-05-23] MEDS: denosumab 120 mg SDV SUBCUT (09:30)
[2020-05-23 10:08] LABS: Basophils % 0.8 %; Eosinophils # 0.3 10^3/uL (0.0-0.8); Eosinophils % 6.4 %; Hematocrit 37.1 % (37.0-47.0); Lymphocytes # 1.5 10^3/uL (0.8-4.8); Lymphocytes % 30.8 %; Mean Corpuscular HGB Conc 32.3 g/dL (30.0-36.0); Mean Corpuscular Hemoglobin 35.2 pg (28.0-34.0); Mean Corpuscular Volume 108.8 fL (81-99); Mean Platelet Volume 9.7 fL (7.4-10.4); Monocytes # 0.7 10^3/uL (0.2-0.9); Monocytes % 13.3 %; Neutrophils % 48.3 %; Nucleated Red Blood Cells % 0 %; Platelet Count 278 10^3/cmm (130-400); Red Blood Count 3.41 10^6/uL (4.1-5.3); Red Cell Distribution Width 15.2 % (12.1-15.1)
[2020-05-23] MEDS: palonosetron 0.25 mg/5 mL SDV IVP (10:28)
[2020-05-23] MEDS: sodium chloride 0.9% 250 ML 999 ML IV (10:30)
== END 2020-06-17 23:59 | disposition home or self-care (01) ==
LOC: ONCMED 06:11
PROVIDERS: PCP Nurse Practitioner Family; Visit Provider Nurse Practitioner
DX: Z51.12 Encounter for antineoplastic immunotherapy (principal); Z51.11 Encounter for antineoplastic chemotherapy; C50.812 Malignant neoplasm of overlapping sites of left female breast; Z17.0 Estrogen receptor positive status [ER+]; C79.51 Secondary malignant neoplasm of bone; C78.01 Secondary malignant neoplasm of right lung; C78.02 Secondary malignant neoplasm of left lung; C77.8 Secondary and unspecified malignant neoplasm of lymph nodes of multiple regions; Z79.899 Other long term (current) drug therapy
CPT/HCPCS: 85025; 96367; 96372; 96375; 96413; J0897; J1100; J2469; J7050; J9358

== ENCOUNTER 2020-06-27 05:43 | Outpatient (RCR) | payer MEDICARE, SELFPAY ==
[2020-06-27 09:50] LABS: Basophils % 0.6 %; Eosinophils # 0.4 10^3/uL (0.0-0.8); Eosinophils % 6.7 %; Hematocrit 37.6 % (37.0-47.0); Hemoglobin 12.1 g/dL (11.5-15.3); Lymphocytes % 31.8 %; Mean Corpuscular HGB Conc 32.2 g/dL (30.0-36.0); Mean Corpuscular Hemoglobin 34.9 pg (28.0-34.0); Mean Corpuscular Volume 108.4 fL (81-99); Mean Platelet Volume 9.9 fL (7.4-10.4); Monocytes # 0.8 10^3/uL (0.2-0.9); Monocytes % 13.5 %; Neutrophils # 2.93 10^3/uL (1.8-7.7); Neutrophils % 47.1 %; Nucleated Red Blood Cells % 0 %; Platelet Count 255 10^3/cmm (130-400); Red Blood Count 3.47 10^6/uL (4.1-5.3); Red Cell Distribution Width 14.9 % (12.1-15.1); White Blood Count 6.2 10^3/uL (4.0-10.0)
[2020-06-27 10:04] LABS: Alanine Aminotransferase 22 U/L (0-33); Albumin Level 3.4 g/dL (3.5-5.2); Alkaline Phosphatase 216 IU/L (35-105); Anion Gap 13.8 (5-19); Aspartate Amino Transferase 36 U/L (0-32); Blood Urea Nitrogen 8 mg/dL (8-23); Calcium 8.8 mg/dL (8.5-10.5); Carbon Dioxide 25 mmol/L (22-29); Chloride 105 mmol/L (98-107); Glucose 91 mg/dL (65-115); Osmolality Calculated 288 mOsm/kg (285-295); Potassium 3.8 mmol/L (3.5-5.1); Sodium 140 mmol/L (136-145); Total Bilirubin 0.4 mg/dL (0.15-1.2); Total Protein 6.4 g/dL (6.6-8.7)
[2020-06-27] MEDS: palonosetron 0.25 mg/5 mL SDV IVP (11:28)
[2020-06-27] MEDS: sodium chloride 0.9% 250 ML 999 ML IV (11:28)
[2020-06-27] MEDS: denosumab 120 mg SDV SUBCUT (11:47)
--- NOTE | 2020-06-27 16:57 | ONC FU_ITS ---
Dr. Pitts follow up note Patient: Soledad Santamaria Unit #: [id number]: 1955 Dicatated By: Kortney Pitts M.D.Date of Visit:June 27, 2020 Onc Med Follow-up/Prog Note History of Present Illness: Mrs. Santamaria is a 64-year-old female with history of left breast carcinoma with bone metastasis. She presented with an abnormal mammogram in 2010. She had apparently had detected an left-sided breast mass in late 2009. She was referred to Dr Gadiel Reed @ [facility] in [place], [place]. In April 2010, she underwent needle core biopsy of the left breast that did confirm invasive ductal carcinoma histological grade 2/3, ER+ MI+ and Her 2 [place] immunostain was 3+. She also had biopsy of a left axillary lymph node that was positive for invasive carcinoma with no lymphoid tissue identified. Her exam prior to chemo revealed a 3 cm mass in the extreme upper outer aspect of the left breast and multiple palpable enlarged lymph nodes-the largest was 2 cm and mobile.. Further workup included a breast MRI which did show biopsy proven malignancy in the left upper outer quadrant measuring 3.3 cm with associated axillary and subpectoral adenopathy. She had multiple satellite nodes with the largest measuring 7 cm. She did undergo MRI guided biopsy on June 08, 2010, which did report invasive cancer. She did have CT of the chest and a bone scan which did not show distant disease,. However, there was an enlarged lymph node in the subcutaneous tissues posterior to the left scapula and was biopsied on May 26, 2010 and was negative for malignancy. She under went neoadjuvant chemotherapy with weekly paclitaxel and Herceptin for 12 cycles from May 2010 to August of 2010 followed by FEC and Herceptin through October 2010. She completed 1 year of Herceptin in May 2011 during which time she was also taking an AI. She did have febrile neutropenia requiring admission in September 2010. She underwent bilateral mastectomies( for abnormal mammogram findings in the right breast) at [facility] in [facility] in November 2010. She did have post mastectomy radiation completed on 03/21/2011. She then underwent reconstruction with bilateral breast implants. Unfortunately in November 2011, the left implant became infected and had to be removed. During work up of the implant abnormality she has found to have a metastatic lesion in her left scapula. She did not have any problems until November of 2012 at which time she was having generalized bone pain, which she thought was a combination of Actonel and Anastrozole. The pain did not improve with stopping these medications. She was transitioned to single agent Tamoxifen. A bone scan revealed increased activity along the lateral margin of the left scapula suspicious of osseous metastatic disease when compared to the bone scan from November 2011. This lesion was biopsied on 12/01/2012 and revealed metastatic disease consistent with the breast primary. She did not have radiation at that time as she was not having significant pain. Mrs Santamaria was restaged and found to have diffuse pulmonary nodules and mediastinal lymphadenopathy and in November 2012, she was enrolled in a clinical trial with Herceptin. Perjeta and Letrozole. She had restaging in March 2014 that revealed slight progression of her pulmonary nodules which did not meet criteria for end point results of the clinical trial and was taken off the trial. Her bone scan was reported as stable. She transferred her care to [facility] in [place], [place] to the care of Dr Mehran Jacobson III in May 2014 due to the difficulty traveling to [facility]. The treatment of letrozole, Herceptin and Perjeta was continued until she disease progression and was changed to Kadcyla in February 2015 after restaging imaging revealed disease progression.And she could not tolerate and it was discontinued after 2 or 3 doses. INTERIM HISTORY: Mrs Santamaria was referred to us in October 2016 for followup at which time, Mrs Santamaria was having right upper back pain, left chest wall pain and right groin pain. She did have restaging with PET/CT on 11/03/2016. The PET/CT revealed multiple FGD avid osteolytic metastases in the left scapula, posterior left 9th rib, T10, T12 and the anterior right acetabulum. Multiple FDG avid metastatic pulmonary nodules represented by 1.9 cm nodule in the posterbasal segment of the right lower lobe with an SUV of 5 and a 1.7 cm nodule in the anterrobasal segment of the left lower lobe with an SUV of 5.1. No hepatic or adrenal metastases identified. Mrs Santamaria was referred to [facility] radiation oncology and underwent radiation to the right hip, left scapula, T10-T12 spine. Her pain resolved with the radiation, offered her palliative chemotherapy with Navelbine and Herceptin. She had agreed to a trial of the chemotherapy. Follow-up CT PET scan showed disease progression chemotherapy was discontinued and she was referred to radiation oncology for palliative radiation therapy. After this cycle of radiation therapy, she was started on lapatinib and Xeloda. She was tolerating it well but she was referred to radiation for C-spine metastases management. At that time her chemotherapy was put on hold. She developed right hip pain for which she received palliative radiation therapy to the 06/25/2017. The lapatinib and Xeloda was restarted but her follow-up tumor markers showed evidence of disease progression as the CA-27-29 gone up to 1346.70 on 08/20/2017 compared to 896.45 on 07/04/2017. Her chemotherapy with Xeloda and lapatinib was discontinued and decided to switch her to weekly Herceptin and Taxane , patient doesn't want take steroids so we recommended Herceptin and Abraxane combination. She did develop nausea vomiting abdominal pain with her last dose of Zometa and doesn't want to take Zometa anymore. We will switch her to Xgeva. There was delay in getting started with the Herceptin/Abraxane. She apparently had positive TB test which required workup and eventually was found to be a false positive. She began her first cycle of Herceptin and Abraxane on 10/09/2017.Last dose of Abraxane/Herceptin was given on 12/17/2017 and because of intolerance Abraxane was discontinued and last dose of Herceptin was given on 12/31/2017 Mrs Santamaria was seen by Dr. Ramirez, oncologist at [facility], for clinical trial and many clinical trials available but due to transportation and financial reasons, patient could not consider any of them. Palliative chemotherapy with carboplatin/gemcitabine/Herceptin or eribulin /Herceptin was recommended. Patient had bone scan and CT scan of chest abdomen done at [facility] which showed widespread metastatic disease. She began chemotherapy with weekly carboplatin, gemcitabine and trastuzumab on 04/15/2018 Follow-up CT PET scan done on 07/05/2018 showed improvement in hepatic metastatic disease since April 2017 study Mixed response to multiple bilateral pulmonary lesion Reactive marrow with splenic activity Osseous metastatic disease seen on April 2017 study is sclerotic and FDG negative Mrs Santamaria was admitted to hospital with abdominal pain and diagnosed with diverticulitis treated successfully with antibiotics and during this time, CT scans of chest abdomen pelvis were done on 07/30/2018 . The scans showed extensive pulmonary metastases and hepatic metastases and bone metastases, stable when compared with CT PET scan done in June 2018. She continued with treatment with carboplatin/gemcitabine/Herceptin. Follow-up CT PET scan done on 10/25/2018 showed mild improvement in hepatic, pulmonary and osseous metastatic disease. She has continued with chemotherapy with weekly Carboplatin, gemcitabine and Herceptin. She is receiving Neupogen support on and Saturday after her treatment on Saturday. She was getting the Neupogen at [place], [place]. She tolerated this plan well. She continues to have exertional shortness of breath but states it is no worse than what is has been but it is no better either. She denies any angina type pain but thinks she may have palpatations once in a while with the shortness of breath. She denies orthopnea. She denies any cough. She does have a very strong family history of CAD-both parents with her father's first WI in his 30's and both brothers have CAD. She has never had a diagnosis of CAD. She did have an echocardiogram on 11/07/2018 that reported EF of 60%-unchanged from previous echo. She reported she had a bug bite on her right breast reconstruction site around where the nipple should be. She states it presented as a big blister then it popped and then formed a scabbed area but no drainage. She had been applying triple antibotic ointment to it. She was referred to plastic surgery at [facility] and ulimately underwent right breast implant removal in December 2018, as per patient and there was no evidence of breast cancer in the specimen. Her chemotherapy was delayed because of dental procedure from 12/30/2018 to 02/04/2019. She resumed treatment on 02/04/2019. Echocardiogram done on 03/09/2019 showed Ejection fraction was 68%. Mrs Santamaria underwent restaging PET/Ct on 04/21/2019. The PET/CT apparently was not compared to the scan she had on 10/25/2018. A review/comparison and an addended report has been requested. However in the interim we discussed the findings of her April 21, 2019 PET in relation to the October 25, 2018 PET. There were multiple pulmonary nodules present with the largest at the right base posteromedially measuring 4.9 x 2 point centimeters with a maximum SUV of 6.71. The results of that SUV on the October 25, 2018 report is somewhat blurry but looks to be 8.4 possibly 6.4 but indicates that the pulmonary nodules are relatively stable. The maximum SUV in the liver was 3.31 and on the October 2018 scan was 5.1. did compare the reports and felt that Soledad had had some improvement in her overall disease. We of course are waiting for the final review and updated report. These findings have been discussed with Mrs Santamaria she understands that it will be compared with the one in October. She has had persistent right arm numbness and has an appointment with Dr Matthew soto for followup on that. She now has noticed right leg numbness. It comes and goes but seems to be lasting longer when it does come. She has had no TIA symptoms. MRI scan of the head done on 05/07/2019 showed no evidence of brain metastases. Due to hyperintense enhancing 9 x 6 mm intrapituitary lesion in the left aspect of pitiutary. Normal optic chasm. Slight [id number] mass effect on the infundibulum. Consistent with a pituitary adenoma. 10 mm metastatic C2 vertebral body lesions likely previously treated. She has continued with carboplatin, gemcitabine and Herceptin. She is also getting monthly Xgeva. Echocardiogram done on November 07, 2018 showed ejection fraction around 65% and appears unchanged from before Echocardiogram done on September 24, 2019 showed ejection fraction 55 -60% CT PET scan done on October 14, 2019 showed increasing metabolism of existing pulmonary nodules e.g. dominant pulmonary nodule within the medial right lower lobe with SUV of 8.3 compared to 6.7 in April 2019 and medial left lower lobe nodule is 1.4 x 1.3 cm with SUV 7 compared to 1.1 x 4 cm with SUV of 2.3 but no new lung nodule In abdomen increase in size of dominant cyst within central portion of liver measuring 6.7 x 5.1 with SUV of 8.1 compared to 4.8 by with SUV of 6 there is a new hypermetabolic lesion within the right lower lobe of the liver, size 0.9 cm with maximum SUV 6 increasing hypermetabolic activity in the existing osseous metastasis without new lesion identified e.g. in the sacrum SUV 6.9 compared to 4.6 previously. Due to the disease progression,she was recommended further treatment with Enhertu (fam-trastuzumab deruxtecan) an anti-HER2; monoclonal antibody; antineoplastic agent, topoisomerase I inhibitor. She began her first cycle on 11/05/2019. .Follow-up CT PET scan done after 5 doses of Enhertu on February 16, 2020 showed good response lung, liver and osseous lesion have all improved, new scattered lung and mediastinal findings may reflect inflammatory changes only. The frequency of her treatment was prolonged to 4 weeks instead of 3 weeks due to performance status and Mrs Santamaria states she is doing better with the longer cycles. Came for follow-up, denies any specific complaints, no more nausea or vomiting, no diarrhea or constipation, no fever chills, no shortness of breath, no palpitation, no lower extremity edema, as per patient recently started consuming natural GI tract detox, called kombucha, as per patient she has been feeling more energetic,, now enjoying outdoor gardening and other activities. And tolerating Enhertu well otherwise Medications: Claritin 1 Tablet (of 10 mg) Oral daily, Magnesium 1 Tablet Oral daily PRN, Multivitamin Adults 1 Tablet Oral daily PRN, Potassium 1 Tablet (of 99 mg) Oral daily PRN, Prevacid 1 Capsule (of 30 mg) Capsule Delayed Release Oral b.i.d., Vitamin C 1 Tablet Oral daily PRN Allergies: Codeine Sulfate Review of Systems: Review of Systems is not available for this patient. Vital Signs: Performed on June 27, 2020 14:48 Height - 67.00 in Weight - 141.4 lbs BSA - 1.75 sq.m BMI - 22.15 Temperature - 97.5 F (LOW) Pulse - 97.5 /min Respiration - 18 /min BP - 133/67 mm(hg) O2 Sat - 96 % Pain - 0 Fatigue - 5 Performance Status: 0 - Fully active, able to carry on all predisease activities without restrictions. (ECOG) Physical Examination: Respiratory - Lungs are clear to auscultation, Cardiovascular - Regular rate and rhythm of heart, Gastrointestinal - Soft, bowel sounds present, Extremities - ,, No visible edema or rash, No mouth sores, no thrush, no jaundice. Lab/Imaging: Test performed on May 16, 2020 09:34 Sodium 137 mmol/L Potassium 3.9 mmol/L Chloride 105 mmol/L CO2 24 mmol/L Anion Gap 11.9 BUN 9 mg/dL Creatinine 0.5 mg/dL Cr Clearance (Est) 122.0500 mL/min eGFR 124.6 mL/min Glucose 112 mg/dL Osmolality - Calculated 283 mOsm/kg Calcium 8.6 mg/dL Protein, Total 6.5 g/dL Albumin 3.3 g/dL Globulin 3.2 g/dL Bilirubin, Total 0.3 mg/dL ALT (SGPT) 22 U/L AST (SGOT) 34 U/L Alkaline Phosphatase 244 IU/L WBC 3.6 10 3/uL RBC 3.19 10 6/uL HGB 11.3 g/dL HCT 35.7 % MCV 111.9 fL MCH 35.4 pg MCHC 31.7 g/dL RDW 16.1 % Platelet Count 269 10 3/cmm MPV 9.6 fL Neutrophils 1.43 10 3/uL Lymphocytes 1.2 10 3/uL Monocytes 0.7 10 3/uL Eosinophils 0.2 10 3/uL Basophils 0.0 10 3/uL Neutrophil % 39.6 % Lymphocyte % 33.5 % Monocyte % 18.6 % Eosinophil % 6.6 % Basophils % 1.1 % NRBC % 0 % Test performed on Feb 24, 2020 11:37 Ua Color Yellow Ua Appearance SL Hazy Ua Glucose Norm Ua Bilirubin Neg Ua Ketones Negative Ua Specific [place] 1.010 Ua Blood Neg Ua pH 5 Ua Protein Neg Ua Nitrites Negative Ua Leukocyte Esterase 1+ Ua Micro: WBC >100 /hpf Urine Culture CC 50 CFU/ml Ua Micro: RBC NONE /hpf Ua Micro: Squam Epith Cells RARE /hpf Ua Micro: Bacteria TRACE /hpf Impression: History of left breast cancer with metastases to left scapula status post bilateral mastectomy and left axillary lymph node dissection followed by radiation therapy to left chest wall and axilla in 2008 in [facility] in [facility] status post 1 year of Herceptin and paclitaxel and Arimidex for some time status post radiation therapy to left scapula biopsy-proven metastases Medical record obtained from [facility] [place], [place] and ER/MI positive HER-2/oneida overexpression positive it shows #1 presentation with abnormal screening mammogram in 2010. Patient underwent neoadjuvant chemotherapy with weekly paclitaxel and Herceptin for 12 cycle from May Treated with neoadjuvant chemotherapy FEC plus Herceptin from August 2010 through October 2010 In November 2010 she undergoes bilateral simple mastectomy with pathology demonstrating pT2 N2 disease Mrs Santamaria completed 1 year of adjuvant Herceptin therapy with adjuvant aromatase inhibitor In October 2011 patient transitioned to single agent tamoxifen due to poor tolerance of aromatase inhibitor therapy In October 2012 patient presented with left scapular pain imaging demonstrates abnormal bones lesion with biopsy notable for ER/MI positive HER-2/oneida overexpressing breast cancer, staging evaluation demonstrated bilateral pulmonary nodules with mediastinal lymphadenopathy On 12/16/2012 patient initiates letrozole plus Herceptin plus PERJETA on clinical trial On 02/22/2015 patient demonstrates subjective progression of disease within lungs On 02/25/2015 initiated on KADCYLA History of metastatic disease status post chemotherapy with different agents on multiple occasions most recent hormonal agent was letrozole 2.5 mg Elevated tumor markers [place] [address] scan of chest abdomen pelvis done on 10/10/2016 showed multiple bilateral pulmonary nodules consistent with metastatic disease multiple lytic lesion including posterior aspect of T12 vertebral body related dissection of much of right side of T10 vertebra and a large lytic lesion involving the roof of the right acetabulum and right iliac wing and focus of due to dissection lesion in right ischium Stable tiny low-attenuation abnormalities within the liver most likely consistent with multiple tiny cysts Pulmonary emphysema 8 ON 09/24/2016 CA 15.3 342.6 CA 27- 29 493.59 Upper mid back pain and right hip pain due to bone metastases questionable cord compression. She did have restaging with PET/CT on 11/03/2016. The PET/CT revealed multiple FGD avid osteolytic metastases in the left scapula, posterior left 9th rib, T10, T12 and the anterior right acetabulum. Multiple FDG avid metastatic pulmonary nodules represented by 1.9 cm nodule in the posterbasal segment of the right lower lobe with an SUV of 5 and a 1.7 cm nodule in the anterrobasal segment of the left lower lobe with an SUV of 5.1. No hepatic or adrenal metastases identified. Mrs Santamaria was referred to [facility] radiation oncology and underwent radiation to the right hip, left scapula, T10-T12 spine. Her pain resolved with the radiation. offered her palliative chemotherapy with Navelbine and Herceptin. She has agreed to a trial of the chemotherapy. CT scan of the chest August 2017 reported disease progression in the chest and evidence of possible hepatic involvement as well as possible metastatic site involving the left 12th rib. PET/CT scan done on 03/02/2017 showed multiple FDG avid metastatic pulmonary nodules represented by 1.9 cm nodule in the posterior basal segment of right lower lobe with SUV 9.6 compared to 5 on prior exam and a 1.7 cm nodule in the anterior basal segment of left lower lobe with SUV of 4.9 compared to 4.1 on prior exam. There were multiple new hepatic metastatic lesions represented by 1.7 cm nodule with SUV of 5.4 in the anterior superior segment right upper lobe. The PET/CT also reported bone metastasis the left anterior superior iliac spine posteriorly right sacroiliac and T10 T12 right acetabulum, left scapula and posterior left eighth rib. MRI scan of C-spine done on 02/28/2017 showed metastatic lesion of C2 vertebral body. Additional foci of metastatic disease may involve C6 and T1 vertebral bodies multiple disc bulging and spondylosis at C5/C6 and C6/C7 with mild anterior impingement Episode of rectal bleed/abdominal pain probably due to diverticulitis/diverticular bleed CT scan of chest abdomen pelvis done on 03/31/2017 showed pulmonary metastatic disease with variable size of some of the lesion since 10/30/2016 some lesions are smaller and other are larger hepatic and bone metastatic disease similar to the prior exam CT PET scan done on 04/27/2017 showed osseous lesion in left half of C1, and right T1 transverse process and left T1 pedicle, the L1 vertebral body, and L2 vertebral body shows no changes. However, pelvic metastatic disease has worsened with SUV 8.2 compared to 4.1 previously but she is status post radiation therapy to her pelvic bones., Multifocal hepatic metastatic disease is progressed , with SUV 9.8 compared to 5.4 earlier, bilateral hypermetabolic pulmonary nodules are unchanged and right hilar malignant node demonstrated progression Started on lapatinib and Xeloda on 06/08/2017 then it was placed on hold due to radiation therapy to left hip pain. Left posterior hip pain due to bone metastases status post radiation to right hip. Status post radiation therapy to C-spine could complete 9 out of 12 recommended doses because of severe radiation-induced pharyngitis , finished on 06/25/2017 Status palliative post radiation to hip, finished on 06/26/2007 Tumor marker CA-27-29 gone up to 1346.70 on 08/20/2017 from 896.45 on 07/04/2017 Lapatinib and Xeloda discontinued on 08/26/2017 and her treatment plan changed to weekly Herceptin and Taxane 3 weeks on and 1 week off with followup PET/CT after the third cycle. She had GI issues with Zometa ( an episode of nausea vomiting and abdominal pain) so she refuses to repeat the Zometa. She will be offered Xgeva 120 mg every month instead of the Zometa. She began her first cycle of Abraxane and Herceptin on 10/09/2017.Till 12/17/2017 at that time Abraxane was discontinued because of intolerance and last dose of Herceptin was given on 12/31/2017 and because of progressive weakness and fatigue this was also discontinued Patient was referred to [facility] she was seen by Dr. Ramirez on 03/31/2018, many clinical trials are available but due to transportation and financial reason patient could not consider any of them. So palliative chemotherapy with erbulin /Herceptin or carboplatin/gemcitabine/Herceptin was recommended. She did discontinue letrozole on 04/07/2018 and it was recommended that she start on weekly carboplatin AUC 2/gemcitabine 1000 mg/m2/Herceptin day 1, 8 and 15 every 28 days. Along with monthly Xgeva. She began her first cycle on 04/15/2018 .Follow-up CT PET scan done on 07/05/2018 showed hepatic metastatic disease has improved when compared with CT PET scan done in April 2017 and index lesion in the right hepatic dome has now significant central necrosis. There was a mixed response to multiple lung nodules, a left upper lobe nodules is unchanged in size at 1.6 cm but has SUV 3.8 compared to 5.6 before similar improvement is present in the posterior right lower lobe nodule and left lung base nodules. However there are new lesions in the right middle and medial right lobes, the 2 new lesions in the medial right lobe have SUV of 289 and right middle lobe measures 2.6 cm with SUV of 6.8. Multiple osseous lesion seen previously were sclerotic and FDG negative. Suspicious uptake is identified in left femoral neck and proximal right femur and L2. Mrs Santamaria continues with Carboplatin, gemcitabine and Herceptin and monthly Xgeva. She does require intermittent support with growth factors to keep her blood counts up in order to stay on the treatment plan. Follow-up CT PET scan done on 10/25/2018 showed multiple hepatic lesions are seen on prior studies on 07/05/2018 or minimally improved in size and now with improved SUV. Mild improvement in bilateral lung nodules both in size and SUV. Mild improvement is noted in multifocal osseous metastatic disease. Follow-up echocardiogram done on 11/07/2018 showed ejection fraction around 60%. She continued with weekly Carboplatin/gemcitabine and Herceptin. She has completed 11 full cycles and had restaging imaging on 04/21/2019. She had a PET/[facility] at [facility] on 04/21/2019. The PET/CT apparently was not compared to the scan she had on 10/25/2018. A review/comparison and an addended report has been requested. However in the interim we discussed the findings of her April 21, 2019 PET in relation to the October 25, 2018 PET. There were multiple pulmonary nodules present with the largest at the right base posteromedially measuring 4.9 x 2 point centimeters with a maximum SUV of 6.71. The results of that SUV on the October 25, 2018 report is somewhat blurry but looks to be 8.4 possibly 6.4 but indicates that the pulmonary nodules are relatively stable. The maximum SUV in the liver was 3.31 and on the October 2018 scan was 5.1. did compare the reports and felt that Soledad had had some improvement in her overall disease. She continued with chemotherapy with carboplatin gemcitabine and Herceptin. As her recent PET scan confirms disease progression she will discontinue her current chemo regimen with Herceptin/carboplatin/gemcitabine and prior approval was requested for Fam Trastuzumab deruxtecan (Enhertu). Dr Pitts had discussed the side effects possible benefits associated with Enhertu including but not limited to allergic reaction, nausea vomiting, fatigue, hair loss,, pneumonitis, neuropathy, bone marrow suppression amongst others. Mrs Santamaria has consented to treatment and we do have approval from insurance. BREAST CANCER TREATMENT HISTORY SUMMARY Paclitaxel Herceptin for 12 cycles from May 2010 to August 2010 [facility]EC and Herceptin through October 2010 Aromatase inhibitor began in October 2010 Bilateral mastectomies November 2010???postmastectomy radiation completed 03/21/2011 Tamoxifen 2013 Clinical trial with Herceptin, Perjeta and letrozole beginning November 2012 through February 2015 Kadcyla began in February 2015 but was stopped after 2-3 doses due to intolerance Radiation to the right hip, left scapula, T10-T12 spine in October 2016. She is also started on lapatinib and Xeloda which continued through August 2017. She had elevation of tumor markers and at that time was switched to Herceptin and Abraxane on 10/09/2017. She stopped the Abraxane after her last dose on 12/17/2017 because of intolerance and Herceptin was then given on 12/31/2017. She was referred to [facility] for possible clinical trials but due to transportation and financial reasons she could not consider any of them. She began palliative chemotherapy with carboplatin gemcitabine and trastuzumab on 04/15/2018. She was also getting monthly Xgeva. She is remained on this regimen until her most recent PET/CT from October 2019 which is show disease progression. She will be transitioned to Enhertu (11/05/2019). Plan: Discussed with patient regarding her labs white blood count 6.2 hemoglobin 12.1 hematocrit 37.6 platelets 255,000 CMP within normal limits Clinically, patient doing well, tolerating Enhertu well, will proceed with next dose today and then consider follow-up CT PET scan as well as echocardiogram and she will return to clinic after CT PET scan and echo to discuss further treatment plans. Signed By: Kortney Pitts M.D. <<Signature on File>>
== END 2020-07-18 23:59 | disposition home or self-care (01) ==
LOC: ONCMED 05:43
PROVIDERS: PCP Nurse Practitioner Family; Visit Provider Internal Medicine Hematology & Oncology
DX: Z51.12 Encounter for antineoplastic immunotherapy (principal); Z51.11 Encounter for antineoplastic chemotherapy; C50.512 Malignant neoplasm of lower-outer quadrant of left female breast; Z17.0 Estrogen receptor positive status [ER+]; C79.51 Secondary malignant neoplasm of bone; C78.01 Secondary malignant neoplasm of right lung; C78.02 Secondary malignant neoplasm of left lung; D61.810 Antineoplastic chemotherapy induced pancytopenia; T45.1X5A Adverse effect of antineoplastic and immunosuppressive drugs, initial encounter; R53.83 Other fatigue; R97.8 Other abnormal tumor markers; J43.9 Emphysema, unspecified; Z79.899 Other long term (current) drug therapy
CPT/HCPCS: 80053; 85025; 96367; 96372; 96375; 96413; 99215; J0897; J1100; J2469; J7050; J9358

== ENCOUNTER 2020-08-15 05:34 | Outpatient (RCR) | payer MEDICARE, SELFPAY ==
--- NOTE | 2020-07-22 07:57 | USCV_ITS ---
Soledad Santamaria Age: 64 Gender: F : 1955 Exam Date: 07/22/2020 08:10 Ordering Phys: Kortney Pitts MD Technologist: WILY Exam Location: [facility] [place] Indication: HIGH RISK MED/ FOLLOW UP BP: 114 / 34 HR: 68 Rhythm: Sinus Technical Quality: Adequate MEASUREMENTS (Male / Female) Normal Values 2D ECHO LV Diastolic Diameter PLAX 3.3 cm 4.2 - 5.9 / 3.9 - 5.3 cm LV Systolic Diameter PLAX 1.9 cm LV Chamber Size 2.4 cm IVS Diastolic Thickness 0.8 cm 0.6 - 1.0 / 0.6 - 0.9 cm IVS Systolic Thickness 1.1 cm LVPW Diastolic Thickness 1.2 cm 0.6 - 1.0 / 0.6 - 0.9 cm LVPW Systolic Thickness 1.6 cm RV Chamber Size 2.6 cm LVOT Diameter 2.0 cm LV Ejection Fraction 2D Teich 72.9 % LV Ejection Fraction MOD 2C 70.0 % LV Ejection Fraction 2C AL 70.2 % LA Diameter 3.0 cm LA Width 2.6 cm LA Height 2.8 cm RA Width 2.3 cm RA Height 2.9 cm Aorta at Sinotubular Diameter 2.5 cm M-MODE LV Diastolic Diameter MM 5.6 cm 4.2 - 5.9 / 3.9 - 5.3 cm LV Systolic Diameter MM 3.6 cm LV Ejection Fraction MM Teich 65.1 % IVS Diastolic Thickness MM 0.7 cm 0.6 - 1.0 / 0.6 - 0.9 cm IVS Systolic Thickness MM 1.0 cm LVPW Diastolic Thickness MM 0.5 cm 0.6 - 1.0 / 0.6 - 0.9 cm LVPW Systolic Thickness MM 1.1 cm Aortic Annulus Diameter 2.9 cm LA Ao Ratio MM 1.1 MV E Point Septal Separation 0.6 cm DOPPLER AV Peak Velocity 87.0 cm/s LVOT Peak Velocity 80.0 cm/s AV Area Cont Eq vti 3.1 cm squared AV Area Cont Eq pk 2.9 cm squared MV Area PHT 3.7 cm squared Mitral E to A Ratio 1.0 MV E' Velocity 60.5 cm/s Mitral E to MV E' Ratio 9.7 Mitral E to LV E' Lateral Ratio 7.8 Mitral E to LV E' Septal Ratio 12.8 TR Peak Velocity 280.0 cm/s TR Peak Gradient 31.4 mmHg TV Peak E Velocity 74.0 cm/s Right Atrial Pressure 3.0 mmHg Pulmonary Artery Systolic Pressu 34.4 mmHg PV Peak Velocity 50.0 cm/s RV Acceleration Time 0.2 s RV Ejection Time 0.4 s RV AcT/ET 0.5 FINDINGS Left Ventricle Normal left ventricular size and systolic function, EF 66 %. No regional wall motion abnormalities. Right Ventricle Normal right ventricular size and systolic function. Right Atrium The right atrium is normal in size. Left Atrium The left atrium is normal in size. Mitral Valve Mild mitral annular calcification. Trace mitral valve regurgitation. Aortic Valve No gross abnormalities noted Tricuspid Valve [id number] tricuspid valve regurgitation. Estimated pulmonary artery peak systolic pressure 34 mmHg Pulmonic Valve No gross abnormalities noted Pericardium Normal pericardium without effusion. Aorta Normal ascending aorta dimension. CONCLUSIONS Normal left ventricular size and systolic function, EF 66 %. No regional wall motion abnormalities. Mild mitral annular calcification. Trace mitral valve regurgitation. [id number] tricuspid valve regurgitation. Estimated pulmonary artery peak systolic pressure 34 mmHg. There is no pericardial effusion. There are no intracardiac masses. Compared to the study from 09/24/2019, there may not be a significant change in the [address] Mino Stokes MD FAC (Electronically Signed) Final Date: 25 July 2020 10:14 S
[2020-07-27 08:53] LABS: Basophils # 0.1 10^3/uL (0.0-0.1); Basophils % 1.3 %; Eosinophils # 0.4 10^3/uL (0.0-0.8); Eosinophils % 6.6 %; Hematocrit 38.4 % (37.0-47.0); Hemoglobin 12.4 g/dL (11.5-15.3); Lymphocytes # 1.8 10^3/uL (0.8-4.8); Lymphocytes % 32.6 %; Mean Corpuscular HGB Conc 32.3 g/dL (30.0-36.0); Mean Corpuscular Volume 108.5 fL (81-99); Mean Platelet Volume 9.6 fL (7.4-10.4); Monocytes % 17.5 %; Neutrophils # 2.25 10^3/uL (1.8-7.7); Neutrophils % 41.4 %; Nucleated Red Blood Cells % 0 %; Platelet Count 258 10^3/cmm (130-400); Red Blood Count 3.54 10^6/uL (4.1-5.3); Red Cell Distribution Width 15.1 % (12.1-15.1); White Blood Count 5.4 10^3/uL (4.0-10.0)
[2020-07-27 09:13] LABS: Alanine Aminotransferase 24 U/L (0-33); Albumin Level 3.5 g/dL (3.5-5.2); Alkaline Phosphatase 224 IU/L (35-105); Anion Gap 12.6 (5-19); Aspartate Amino Transferase 39 U/L (0-32); Blood Urea Nitrogen 7 mg/dL (8-23); Calcium 8.7 mg/dL (8.5-10.5); Carbon Dioxide 25 mmol/L (22-29); Chloride 108 mmol/L (98-107); Globulin 3.3 g/dL (1.3-4.6); Glucose 49 mg/dL (65-115); Osmolality Calculated 289 mOsm/kg (285-295); Potassium 3.6 mmol/L (3.5-5.1); Sodium 142 mmol/L (136-145); Total Bilirubin 0.3 mg/dL (0.15-1.2); Total Protein 6.8 g/dL (6.6-8.7)
[2020-07-27] MEDS: sodium chloride 0.9% 250 ML 75 ML IV (11:20)
[2020-07-27] MEDS: palonosetron 0.25 mg/5 mL SDV IV (11:23)
[2020-07-27] MEDS: denosumab 120 mg SDV SUBCUT (12:15)
--- NOTE | 2020-07-27 14:27 | ONC FU_ITS ---
Dr. Pitts follow up note Patient: Soledad Santamaria Unit #: [id number]: 1955 Dicatated By: Kortney Pitts M.D.Date of Visit:Jul 27, 2020 Onc Med Follow-up/Prog Note History of Present Illness: Mrs. Santamaria is a 64-year-old female with history of left breast carcinoma with bone metastasis. She presented with an abnormal mammogram in 2010. She had apparently had detected an left-sided breast mass in late 2009. She was referred to Dr Gadiel Reed @ [facility] in [place], [place]. In April 2010, she underwent needle core biopsy of the left breast that did confirm invasive ductal carcinoma histological grade 2/3, ER+ WA+ and Her 2 [place] immunostain was 3+. She also had biopsy of a left axillary lymph node that was positive for invasive carcinoma with no lymphoid tissue identified. Her exam prior to chemo revealed a 3 cm mass in the extreme upper outer aspect of the left breast and multiple palpable enlarged lymph nodes-the largest was 2 cm and mobile.. Further workup included a breast MRI which did show biopsy proven malignancy in the left upper outer quadrant measuring 3.3 cm with associated axillary and subpectoral adenopathy. She had multiple satellite nodes with the largest measuring 7 cm. She did undergo MRI guided biopsy on June 08, 2010, which did report invasive cancer. She did have CT of the chest and a bone scan which did not show distant disease,. However, there was an enlarged lymph node in the subcutaneous tissues posterior to the left scapula and was biopsied on May 26, 2010 and was negative for malignancy. She under went neoadjuvant chemotherapy with weekly paclitaxel and Herceptin for 12 cycles from May 2010 to August of 2010 followed by FEC and Herceptin through October 2010. She completed 1 year of Herceptin in May 2011 during which time she was also taking an AI. She did have febrile neutropenia requiring admission in September 2010. She underwent bilateral mastectomies( for abnormal mammogram findings in the right breast) at [facility] in [facility] in November 2010. She did have post mastectomy radiation completed on 03/21/2011. She then underwent reconstruction with bilateral breast implants. Unfortunately in November 2011, the left implant became infected and had to be removed. During work up of the implant abnormality she has found to have a metastatic lesion in her left scapula. She did not have any problems until November of 2012 at which time she was having generalized bone pain, which she thought was a combination of Actonel and Anastrozole. The pain did not improve with stopping these medications. She was transitioned to single agent Tamoxifen. A bone scan revealed increased activity along the lateral margin of the left scapula suspicious of osseous metastatic disease when compared to the bone scan from November 2011. This lesion was biopsied on 12/01/2012 and revealed metastatic disease consistent with the breast primary. She did not have radiation at that time as she was not having significant pain. Mrs Santamaria was restaged and found to have diffuse pulmonary nodules and mediastinal lymphadenopathy and in November 2012, she was enrolled in a clinical trial with Herceptin. Perjeta and Letrozole. She had restaging in March 2014 that revealed slight progression of her pulmonary nodules which did not meet criteria for end point results of the clinical trial and was taken off the trial. Her bone scan was reported as stable. She transferred her care to [facility] in [place], [place] to the care of Dr Mehran Jacobson III in May 2014 due to the difficulty traveling to [facility]. The treatment of letrozole, Herceptin and Perjeta was continued until she disease progression and was changed to Kadcyla in February 2015 after restaging imaging revealed disease progression.And she could not tolerate and it was discontinued after 2 or 3 doses. INTERIM HISTORY: Mrs Santamaria was referred to us in October 2016 for followup at which time, Mrs Santamaria was having right upper back pain, left chest wall pain and right groin pain. She did have restaging with PET/CT on 11/03/2016. The PET/CT revealed multiple FGD avid osteolytic metastases in the left scapula, posterior left 9th rib, T10, T12 and the anterior right acetabulum. Multiple FDG avid metastatic pulmonary nodules represented by 1.9 cm nodule in the posterbasal segment of the right lower lobe with an SUV of 5 and a 1.7 cm nodule in the anterrobasal segment of the left lower lobe with an SUV of 5.1. No hepatic or adrenal metastases identified. Mrs Santamaria was referred to [facility] radiation oncology and underwent radiation to the right hip, left scapula, T10-T12 spine. Her pain resolved with the radiation, offered her palliative chemotherapy with Navelbine and Herceptin. She had agreed to a trial of the chemotherapy. Follow-up CT PET scan showed disease progression chemotherapy was discontinued and she was referred to radiation oncology for palliative radiation therapy. After this cycle of radiation therapy, she was started on lapatinib and Xeloda. She was tolerating it well but she was referred to radiation for C-spine metastases management. At that time her chemotherapy was put on hold. She developed right hip pain for which she received palliative radiation therapy to the 06/25/2017. The lapatinib and Xeloda was restarted but her follow-up tumor markers showed evidence of disease progression as the CA-27-29 gone up to 1346.70 on 08/20/2017 compared to 896.45 on 07/04/2017. Her chemotherapy with Xeloda and lapatinib was discontinued and decided to switch her to weekly Herceptin and Taxane , patient doesn't want take steroids so we recommended Herceptin and Abraxane combination. She did develop nausea vomiting abdominal pain with her last dose of Zometa and doesn't want to take Zometa anymore. We will switch her to Xgeva. There was delay in getting started with the Herceptin/Abraxane. She apparently had positive TB test which required workup and eventually was found to be a false positive. She began her first cycle of Herceptin and Abraxane on 10/09/2017.Last dose of Abraxane/Herceptin was given on 12/17/2017 and because of intolerance Abraxane was discontinued and last dose of Herceptin was given on 12/31/2017 Mrs Santamaria was seen by Dr. Ramirez, oncologist at [facility], for clinical trial and many clinical trials available but due to transportation and financial reasons, patient could not consider any of them. Palliative chemotherapy with carboplatin/gemcitabine/Herceptin or eribulin /Herceptin was recommended. Patient had bone scan and CT scan of chest abdomen done at [facility] which showed widespread metastatic disease. She began chemotherapy with weekly carboplatin, gemcitabine and trastuzumab on 04/15/2018 Follow-up CT PET scan done on 07/05/2018 showed improvement in hepatic metastatic disease since April 2017 study Mixed response to multiple bilateral pulmonary lesion Reactive marrow with splenic activity Osseous metastatic disease seen on April 2017 study is sclerotic and FDG negative Mrs Santamaria was admitted to hospital with abdominal pain and diagnosed with diverticulitis treated successfully with antibiotics and during this time, CT scans of chest abdomen pelvis were done on 07/30/2018 . The scans showed extensive pulmonary metastases and hepatic metastases and bone metastases, stable when compared with CT PET scan done in June 2018. She continued with treatment with carboplatin/gemcitabine/Herceptin. Follow-up CT PET scan done on 10/25/2018 showed mild improvement in hepatic, pulmonary and osseous metastatic disease. She has continued with chemotherapy with weekly Carboplatin, gemcitabine and Herceptin. She is receiving Neupogen support on and Saturday after her treatment on Saturday. She was getting the Neupogen at [place], [place]. She tolerated this plan well. She continues to have exertional shortness of breath but states it is no worse than what is has been but it is no better either. She denies any angina type pain but thinks she may have palpatations once in a while with the shortness of breath. She denies orthopnea. She denies any cough. She does have a very strong family history of CAD-both parents with her father's first MD in his 30's and both brothers have CAD. She has never had a diagnosis of CAD. She did have an echocardiogram on 11/07/2018 that reported EF of 60%-unchanged from previous echo. She reported she had a bug bite on her right breast reconstruction site around where the nipple should be. She states it presented as a big blister then it popped and then formed a scabbed area but no drainage. She had been applying triple antibotic ointment to it. She was referred to plastic surgery at [facility] and ulimately underwent right breast implant removal in December 2018, as per patient and there was no evidence of breast cancer in the specimen. Her chemotherapy was delayed because of dental procedure from 12/30/2018 to 02/04/2019. She resumed treatment on 02/04/2019. Echocardiogram done on 03/09/2019 showed Ejection fraction was 68%. Mrs Santamaria underwent restaging PET/Ct on 04/21/2019. The PET/CT apparently was not compared to the scan she had on 10/25/2018. A review/comparison and an addended report has been requested. However in the interim we discussed the findings of her April 21, 2019 PET in relation to the October 25, 2018 PET. There were multiple pulmonary nodules present with the largest at the right base posteromedially measuring 4.9 x 2 point centimeters with a maximum SUV of 6.71. The results of that SUV on the October 25, 2018 report is somewhat blurry but looks to be 8.4 possibly 6.4 but indicates that the pulmonary nodules are relatively stable. The maximum SUV in the liver was 3.31 and on the October 2018 scan was 5.1. did compare the reports and felt that Soledad had had some improvement in her overall disease. We of course are waiting for the final review and updated report. These findings have been discussed with Mrs Santamaria she understands that it will be compared with the one in October. She has had persistent right arm numbness and has an appointment with Dr Matthew soto for followup on that. She now has noticed right leg numbness. It comes and goes but seems to be lasting longer when it does come. She has had no TIA symptoms. MRI scan of the head done on 05/07/2019 showed no evidence of brain metastases. Due to hyperintense enhancing 9 x 6 mm intrapituitary lesion in the left aspect of pitiutary. Normal optic chasm. Slight [id number] mass effect on the infundibulum. Consistent with a pituitary adenoma. 10 mm metastatic C2 vertebral body lesions likely previously treated. She has continued with carboplatin, gemcitabine and Herceptin. She is also getting monthly Xgeva. Echocardiogram done on November 07, 2018 showed ejection fraction around 65% and appears unchanged from before Echocardiogram done on September 24, 2019 showed ejection fraction 55 -60% CT PET scan done on October 14, 2019 showed increasing metabolism of existing pulmonary nodules e.g. dominant pulmonary nodule within the medial right lower lobe with SUV of 8.3 compared to 6.7 in April 2019 and medial left lower lobe nodule is 1.4 x 1.3 cm with SUV 7 compared to 1.1 x 4 cm with SUV of 2.3 but no new lung nodule In abdomen increase in size of dominant cyst within central portion of liver measuring 6.7 x 5.1 with SUV of 8.1 compared to 4.8 by with SUV of 6 there is a new hypermetabolic lesion within the right lower lobe of the liver, size 0.9 cm with maximum SUV 6 increasing hypermetabolic activity in the existing osseous metastasis without new lesion identified e.g. in the sacrum SUV 6.9 compared to 4.6 previously. Due to the disease progression,she was recommended further treatment with Enhertu (fam-trastuzumab deruxtecan) an anti-HER2; monoclonal antibody; antineoplastic agent, topoisomerase I inhibitor. She began her first cycle on 11/05/2019. .Follow-up CT PET scan done after 5 doses of Enhertu on February 16, 2020 showed good response lung, liver and osseous lesion have all improved, new scattered lung and mediastinal findings may reflect inflammatory changes only. The frequency of her treatment was prolonged to 4 weeks instead of 3 weeks due to performance status and Mrs Santamaria states she is doing better with the longer cycles. Follow-up CT PET scan done on July 08, 2020 showed unchanged thoracic adenopathy, existing pleural pulmonary metastatic lesions have shown overall significant decrease in size and FDG uptake. Development of new area of hypermetabolic airspace opacity within left upper lobe likely representing inflammation or infection. Existing hypermetabolic hepatic metastatic disease have shown complete resolution without residual FDG uptake. Unchanged hypermetabolic osteoblastic osseous metastatic disease involving left iliac bone, upper sacrum, L3 vertebra Came for follow-up, complaining of left hip pain but patient is not taking recommended narcotics, relying on [id number] pain medication, no fever chills, no nausea or vomiting, no diarrhea constipation, no peripheral numbness, no shortness of breath, no palpitation, no lower extremity edema, tolerating systemic therapy with Enhertu/Xgeva well Medications: Claritin 1 Tablet (of 10 mg) Oral daily, Magnesium 1 Tablet Oral daily PRN, Multivitamin Adults 1 Tablet Oral daily PRN, Potassium 1 Tablet (of 99 mg) Oral daily PRN, Vitamin C 1 Tablet Oral daily PRN Allergies: Codeine Sulfate Review of Systems: Review of Systems is not available for this patient. Vital Signs: Performed on Jul 27, 2020 10:02 Height - 67.00 in Weight - 137.8 lbs (LOW) BSA - 1.73 sq.m BMI - 21.58 Temperature - 97.3 F (LOW) Pulse - 93 /min Respiration - 17 /min BP - 129/82 mm(hg) O2 Sat - 92 % (LOW) Pain - 7 Performance Status: 1 - No physically strenuous activity, but ambulatory and able to carry out light or sedentary work (e.g. office work, light house work). (ECOG) Physical Examination: Respiratory - Lungs are clear to auscultation, Cardiovascular - Regular rate and rhythm of heart, Gastrointestinal - Soft, bowel sounds present, Extremities - No visible edema or rash. Lab/Imaging: Test performed on May 16, 2020 09:34 Sodium 137 mmol/L Potassium 3.9 mmol/L Chloride 105 mmol/L CO2 24 mmol/L Anion Gap 11.9 BUN 9 mg/dL Creatinine 0.5 mg/dL Cr Clearance (Est) 122.0500 mL/min eGFR 124.6 mL/min Glucose 112 mg/dL Osmolality - Calculated 283 mOsm/kg Calcium 8.6 mg/dL Protein, Total 6.5 g/dL Albumin 3.3 g/dL Globulin 3.2 g/dL Bilirubin, Total 0.3 mg/dL ALT (SGPT) 22 U/L AST (SGOT) 34 U/L Alkaline Phosphatase 244 IU/L WBC 3.6 10 3/uL RBC 3.19 10 6/uL HGB 11.3 g/dL HCT 35.7 % MCV 111.9 fL MCH 35.4 pg MCHC 31.7 g/dL RDW 16.1 % Platelet Count 269 10 3/cmm MPV 9.6 fL Neutrophils 1.43 10 3/uL Lymphocytes 1.2 10 3/uL Monocytes 0.7 10 3/uL Eosinophils 0.2 10 3/uL Basophils 0.0 10 3/uL Neutrophil % 39.6 % Lymphocyte % 33.5 % Monocyte % 18.6 % Eosinophil % 6.6 % Basophils % 1.1 % NRBC % 0 % Test performed on Feb 24, 2020 11:37 Ua Color Yellow Ua Appearance SL Hazy Ua Glucose Norm Ua Bilirubin Neg Ua Ketones Negative Ua Specific [place] 1.010 Ua Blood Neg Ua pH 5 Ua Protein Neg Ua Nitrites Negative Ua Leukocyte Esterase 1+ Ua Micro: WBC >100 /hpf Urine Culture CC 50 CFU/ml Ua Micro: RBC NONE /hpf Ua Micro: Squam Epith Cells RARE /hpf Ua Micro: Bacteria TRACE /hpf Impression: History of left breast cancer with metastases to left scapula status post bilateral mastectomy and left axillary lymph node dissection followed by radiation therapy to left chest wall and axilla in 2008 in [facility] in [facility] status post 1 year of Herceptin and paclitaxel and Arimidex for some time status post radiation therapy to left scapula biopsy-proven metastases Medical record obtained from [facility] [place], [place] and ER/[place] positive HER-2/oneida overexpression positive it shows #1 presentation with abnormal screening mammogram in 2010. Patient underwent neoadjuvant chemotherapy with weekly paclitaxel and Herceptin for 12 cycle from May Treated with neoadjuvant chemotherapy FEC plus Herceptin from August 2010 through October 2010 In November 2010 she undergoes bilateral simple mastectomy with pathology demonstrating pT2 N2 disease Mrs Santamaria completed 1 year of adjuvant Herceptin therapy with adjuvant aromatase inhibitor In October 2011 patient transitioned to single agent tamoxifen due to poor tolerance of aromatase inhibitor therapy In October 2012 patient presented with left scapular pain imaging demonstrates abnormal bones lesion with biopsy notable for ER/WA positive HER-2/oneida overexpressing breast cancer, staging evaluation demonstrated bilateral pulmonary nodules with mediastinal lymphadenopathy On 12/16/2012 patient initiates letrozole plus Herceptin plus PERJETA on clinical trial On 02/22/2015 patient demonstrates subjective progression of disease within lungs On 02/25/2015 initiated on KADCYLA History of metastatic disease status post chemotherapy with different agents on multiple occasions most recent hormonal agent was letrozole 2.5 mg Elevated tumor [place] [address] scan of chest abdomen pelvis done on 10/10/2016 showed multiple bilateral pulmonary nodules consistent with metastatic disease multiple lytic lesion including posterior aspect of T12 vertebral body related dissection of much of right side of T10 vertebra and a large lytic lesion involving the roof of the right acetabulum and right iliac wing and focus of due to dissection lesion in right ischium Stable tiny low-attenuation abnormalities within the liver most likely consistent with multiple tiny cysts Pulmonary emphysema 8 ON 09/24/2016 CA 15.3 342.6 CA 27- 29 493.59 Upper mid back pain and right hip pain due to bone metastases questionable cord compression. She did have restaging with PET/CT on 11/03/2016. The PET/CT revealed multiple FGD avid osteolytic metastases in the left scapula, posterior left 9th rib, T10, T12 and the anterior right acetabulum. Multiple FDG avid metastatic pulmonary nodules represented by 1.9 cm nodule in the posterbasal segment of the right lower lobe with an SUV of 5 and a 1.7 cm nodule in the anterrobasal segment of the left lower lobe with an SUV of 5.1. No hepatic or adrenal metastases identified. Mrs Santamaria was referred to [facility] radiation oncology and underwent radiation to the right hip, left scapula, T10-T12 spine. Her pain resolved with the radiation. offered her palliative chemotherapy with Navelbine and Herceptin. She has agreed to a trial of the chemotherapy. CT scan of the chest August 2017 reported disease progression in the chest and evidence of possible hepatic involvement as well as possible metastatic site involving the left 12th rib. PET/CT scan done on 03/02/2017 showed multiple FDG avid metastatic pulmonary nodules represented by 1.9 cm nodule in the posterior basal segment of right lower lobe with SUV 9.6 compared to 5 on prior exam and a 1.7 cm nodule in the anterior basal segment of left lower lobe with SUV of 4.9 compared to 4.1 on prior exam. There were multiple new hepatic metastatic lesions represented by 1.7 cm nodule with SUV of 5.4 in the anterior superior segment right upper lobe. The PET/CT also reported bone metastasis the left anterior superior iliac spine posteriorly right sacroiliac and T10 T12 right acetabulum, left scapula and posterior left eighth rib. MRI scan of C-spine done on 02/28/2017 showed metastatic lesion of C2 vertebral body. Additional foci of metastatic disease may involve C6 and T1 vertebral bodies multiple disc bulging and spondylosis at C5/C6 and C6/C7 with mild anterior impingement Episode of rectal bleed/abdominal pain probably due to diverticulitis/diverticular bleed CT scan of chest abdomen pelvis done on 03/31/2017 showed pulmonary metastatic disease with variable size of some of the lesion since 10/30/2016 some lesions are smaller and other are larger hepatic and bone metastatic disease similar to the prior exam CT PET scan done on 04/27/2017 showed osseous lesion in left half of C1, and right T1 transverse process and left T1 pedicle, the L1 vertebral body, and L2 vertebral body shows no changes. However, pelvic metastatic disease has worsened with SUV 8.2 compared to 4.1 previously but she is status post radiation therapy to her pelvic bones., Multifocal hepatic metastatic disease is progressed , with SUV 9.8 compared to 5.4 earlier, bilateral hypermetabolic pulmonary nodules are unchanged and right hilar malignant node demonstrated progression Started on lapatinib and Xeloda on 06/08/2017 then it was placed on hold due to radiation therapy to left hip pain. Left posterior hip pain due to bone metastases status post radiation to right hip. Status post radiation therapy to C-spine could complete 9 out of 12 recommended doses because of severe radiation-induced pharyngitis , finished on 06/25/2017 Status palliative post radiation to hip, finished on 06/26/2007 Tumor marker CA-27-29 gone up to 1346.70 on 08/20/2017 from 896.45 on 07/04/2017 Lapatinib and Xeloda discontinued on 08/26/2017 and her treatment plan changed to weekly Herceptin and Taxane 3 weeks on and 1 week off with followup PET/CT after the third cycle. She had GI issues with Zometa ( an episode of nausea vomiting and abdominal pain) so she refuses to repeat the Zometa. She will be offered Xgeva 120 mg every month instead of the Zometa. She began her first cycle of Abraxane and Herceptin on 10/09/2017.Till 12/17/2017 at that time Abraxane was discontinued because of intolerance and last dose of Herceptin was given on 12/31/2017 and because of progressive weakness and fatigue this was also discontinued Patient was referred to [facility] she was seen by Dr. Ramirez on 03/31/2018, many clinical trials are available but due to transportation and financial reason patient could not consider any of them. So palliative chemotherapy with erbulin /Herceptin or carboplatin/gemcitabine/Herceptin was recommended. She did discontinue letrozole on 04/07/2018 and it was recommended that she start on weekly carboplatin AUC 2/gemcitabine 1000 mg/m2/Herceptin day 1, 8 and 15 every 28 days. Along with monthly Xgeva. She began her first cycle on 04/15/2018 .Follow-up CT PET scan done on 07/05/2018 showed hepatic metastatic disease has improved when compared with CT PET scan done in April 2017 and index lesion in the right hepatic dome has now significant central necrosis. There was a mixed response to multiple lung nodules, a left upper lobe nodules is unchanged in size at 1.6 cm but has SUV 3.8 compared to 5.6 before similar improvement is present in the posterior right lower lobe nodule and left lung base nodules. However there are new lesions in the right middle and medial right lobes, the 2 new lesions in the medial right lobe have SUV of 289 and right middle lobe measures 2.6 cm with SUV of 6.8. Multiple osseous lesion seen previously were sclerotic and FDG negative. Suspicious uptake is identified in left femoral neck and proximal right femur and L2. Mrs Santamaria continues with Carboplatin, gemcitabine and Herceptin and monthly Xgeva. She does require intermittent support with growth factors to keep her blood counts up in order to stay on the treatment plan. Follow-up CT PET scan done on 10/25/2018 showed multiple hepatic lesions are seen on prior studies on 07/05/2018 or minimally improved in size and now with improved SUV. Mild improvement in bilateral lung nodules both in size and SUV. Mild improvement is noted in multifocal osseous metastatic disease. Follow-up echocardiogram done on 11/07/2018 showed ejection fraction around 60%. She continued with weekly Carboplatin/gemcitabine and Herceptin. She has completed 11 full cycles and had restaging imaging on 04/21/2019. She had a [facility] [facility] on 04/21/2019. The PET/CT apparently was not compared to the scan she had on 10/25/2018. A review/comparison and an addended report has been requested. However in the interim we discussed the findings of her April 21, 2019 PET in relation to the October 25, 2018 PET. There were multiple pulmonary nodules present with the largest at the right base posteromedially measuring 4.9 x 2 point centimeters with a maximum SUV of 6.71. The results of that SUV on the October 25, 2018 report is somewhat blurry but looks to be 8.4 possibly 6.4 but indicates that the pulmonary nodules are relatively stable. The maximum SUV in the liver was 3.31 and on the October 2018 scan was 5.1. did compare the reports and felt that Soledad had had some improvement in her overall disease. She continued with chemotherapy with carboplatin gemcitabine and Herceptin. As her recent PET scan confirms disease progression she will discontinue her current chemo regimen with Herceptin/carboplatin/gemcitabine and prior approval was requested for Fam Trastuzumab deruxtecan (Enhertu). Dr Pitts had discussed the side effects possible benefits associated with Enhertu including but not limited to allergic reaction, nausea vomiting, fatigue, hair loss,, pneumonitis, neuropathy, bone marrow suppression amongst others. Mrs Santamaria has consented to treatment and we do have approval from insurance. BREAST CANCER TREATMENT HISTORY SUMMARY Paclitaxel Herceptin for 12 cycles from May 2010 to August 2010 [facility] and Herceptin through October 2010 Aromatase inhibitor began in October 2010 Bilateral mastectomies November 2010???postmastectomy radiation completed 03/21/2011 Tamoxifen 2013 Clinical trial with Herceptin, Perjeta and letrozole beginning November 2012 through February 2015 Kadcyla began in February 2015 but was stopped after 2-3 doses due to intolerance Radiation to the right hip, left scapula, T10-T12 spine in October 2016. She is also started on lapatinib and Xeloda which continued through August 2017. She had elevation of tumor markers and at that time was switched to Herceptin and Abraxane on 10/09/2017. She stopped the Abraxane after her last dose on 12/17/2017 because of intolerance and Herceptin was then given on 12/31/2017. She was referred to [facility] for possible clinical trials but due to transportation and financial reasons she could not consider any of them. She began palliative chemotherapy with carboplatin gemcitabine and trastuzumab on 04/15/2018. She was also getting monthly Xgeva. She is remained on this regimen until her most recent PET/CT from October 2019 which is show disease progression. She will be transitioned to Enhertu (11/05/2019). , Follow-up CT PET scan done on July 08, 2020 shows excellent response to Enhertu, there is a resolution of extensive metastatic disease and improvement in pulmonary/pleural metastatic disease, stable bone mets and thoracic lymphadenopathy and new area of hypermetabolic airspace opacity within left upper lobe likely represent inflammation or infection, echocardiogram done on July 22, 2020 showed ejection fraction 66% Plan: Discussed with patient regarding her labs white blood count 5.4 hemoglobin 12.4 hematocrit 38.4 platelets 258,000 CMP within normal limits except alk phos 224, follow-up CT PET scan done on July 08, 2020 shows excellent response, resolution of hepatic metastatic disease, improvement in pleural pulmonary metastatic disease, stable bone mets, and thoracic adenopathy. An echocardiogram was done on July 22, 2020 shows ejection fraction 66% Clinically, patient doing well, tolerating systemic therapy with Enhertu and monthly Xgeva well, her follow-up CT PET scan shows excellent response to the treatment, will proceed with the next dose of Enhertu today and monthly Xgeva and then patient return to clinic in 1 month with CBC CMP Signed By: Kortney Pitts M.D. <<Signature on File>>
[2020-08-15 12:34] LABS: Basophils # 0.1 10^3/uL (0.0-0.1); Basophils % 0.9 %; Eosinophils # 0.4 10^3/uL (0.0-0.8); Eosinophils % 6.8 %; Hematocrit 35.4 % (37.0-47.0); Hemoglobin 11.7 g/dL (11.5-15.3); Lymphocytes # 2.3 10^3/uL (0.8-4.8); Lymphocytes % 41.1 %; Mean Corpuscular HGB Conc 33.1 g/dL (30.0-36.0); Mean Corpuscular Hemoglobin 34.9 pg (28.0-34.0); Mean Corpuscular Volume 105.7 fL (81-99); Mean Platelet Volume 9.3 fL (7.4-10.4); Monocytes % 18.4 %; Neutrophils # 1.79 10^3/uL (1.8-7.7); Neutrophils % 32.3 %; Nucleated Red Blood Cells % 0 %; Platelet Count 343 10^3/cmm (130-400); Red Blood Count 3.35 10^6/uL (4.1-5.3); Red Cell Distribution Width 15.1 % (12.1-15.1); White Blood Count 5.6 10^3/uL (4.0-10.0)
[2020-08-15 12:57] LABS: Alanine Aminotransferase 32 U/L (0-33); Albumin Level 3.6 g/dL (3.5-5.2); Alkaline Phosphatase 302 IU/L (35-105); Anion Gap 14.6 (5-19); Aspartate Amino Transferase 45 U/L (0-32); Blood Urea Nitrogen 13 mg/dL (8-23); Carbon Dioxide 26 mmol/L (22-29); Chloride 104 mmol/L (98-107); Globulin 3.1 g/dL (1.3-4.6); Glucose 65 mg/dL (65-115); Osmolality Calculated 290 mOsm/kg (285-295); Potassium 3.6 mmol/L (3.5-5.1); Sodium 141 mmol/L (136-145); Total Bilirubin 0.4 mg/dL (0.15-1.2); Total Protein 6.7 g/dL (6.6-8.7)
[2020-08-15] MEDS: sodium chloride 0.9% 250 ML 75 ML IV (15:17)
[2020-08-15] MEDS: ondansetron 2 mg/ML SDV 2 mL 8 MG IV (15:17)
[2020-08-15 17:00] LABS: 25 Hydroxy Vitamin D 54 ng/mL (30-100); Thyroid Stimulating Hormone 2.81 uIU/mL (0.27-4.20)
--- NOTE | 2020-08-24 02:58 | ONC FU_ITS ---
Kerri Wolfe Patient Note Patient: Soledad Santamaria Unit #: [id number]: [id number] Dictated By: Liliana BernsteinDate of Visit: Aug 15, 2020 Onc MED Follow-Up/Prog Note Chief Complaint: Metastatic breast cancer History of Present Illness: Mrs. Santamaria is a 64-year-old female with history of left breast carcinoma with bone metastasis. She presented with an abnormal mammogram in 2010. She had apparently had detected an left-sided breast mass in late 2009. She was referred to Dr Gadiel Reed @ [facility] in [place], [place]. In April 2010, she underwent needle core biopsy of the left breast that did confirm invasive ductal carcinoma histological grade 2/3, ER+ OH+ and Her 2 [place] immunostain was 3+. She also had biopsy of a left axillary lymph node that was positive for invasive carcinoma with no lymphoid tissue identified. Her exam prior to chemo revealed a 3 cm mass in the extreme upper outer aspect of the left breast and multiple palpable enlarged lymph nodes-the largest was 2 cm and mobile.. Further workup included a breast MRI which did show biopsy proven malignancy in the left upper outer quadrant measuring 3.3 cm with associated axillary and subpectoral adenopathy. She had multiple satellite nodes with the largest measuring 7 cm. She did undergo MRI guided biopsy on June 08, 2010, which did report invasive cancer. She did have CT of the chest and a bone scan which did not show distant disease,. However, there was an enlarged lymph node in the subcutaneous tissues posterior to the left scapula and was biopsied on May 26, 2010 and was negative for malignancy. She under went neoadjuvant chemotherapy with weekly paclitaxel and Herceptin for 12 cycles from May 2010 to August of 2010 followed by FEC and Herceptin through October 2010. She completed 1 year of Herceptin in May 2011 during which time she was also taking an AI. She did have febrile neutropenia requiring admission in September 2010. She underwent bilateral mastectomies( for abnormal mammogram findings in the right breast) at [facility] in [facility] in November 2010. She did have post mastectomy radiation completed on 03/21/2011. She then underwent reconstruction with bilateral breast implants. Unfortunately in November 2011, the left implant became infected and had to be removed. During work up of the implant abnormality she has found to have a metastatic lesion in her left scapula. She did not have any problems until November of 2012 at which time she was having generalized bone pain, which she thought was a combination of Actonel and Anastrozole. The pain did not improve with stopping these medications. She was transitioned to single agent Tamoxifen. A bone scan revealed increased activity along the lateral margin of the left scapula suspicious of osseous metastatic disease when compared to the bone scan from November 2011. This lesion was biopsied on 12/01/2012 and revealed metastatic disease consistent with the breast primary. She did not have radiation at that time as she was not having significant pain. Mrs Santamaria was restaged and found to have diffuse pulmonary nodules and mediastinal lymphadenopathy and in November 2012, she was enrolled in a clinical trial with Herceptin. Perjeta and Letrozole. She had restaging in March 2014 that revealed slight progression of her pulmonary nodules which did not meet criteria for end point results of the clinical trial and was taken off the trial. Her bone scan was reported as stable. She transferred her care to [facility] in [place], [place] to the care of Dr Mehran Jacobson III in May 2014 due to the difficulty traveling to [facility]. The treatment of letrozole, Herceptin and Perjeta was continued until she disease progression and was changed to Kadcyla in February 2015 after restaging imaging revealed disease progression.And she could not tolerate and it was discontinued after 2 or 3 doses. INTERIM HISTORY: Mrs Santamaria was referred to us in October 2016 for followup at which time, Mrs Santamaria was having right upper back pain, left chest wall pain and right groin pain. She did have restaging with PET/CT on 11/03/2016. The PET/CT revealed multiple FGD avid osteolytic metastases in the left scapula, posterior left 9th rib, T10, T12 and the anterior right acetabulum. Multiple FDG avid metastatic pulmonary nodules represented by 1.9 cm nodule in the posterbasal segment of the right lower lobe with an SUV of 5 and a 1.7 cm nodule in the anterrobasal segment of the left lower lobe with an SUV of 5.1. No hepatic or adrenal metastases identified. Mrs Santamaria was referred to [facility] radiation oncology and underwent radiation to the right hip, left scapula, T10-T12 spine. Her pain resolved with the radiation, offered her palliative chemotherapy with Navelbine and Herceptin. She had agreed to a trial of the chemotherapy. Follow-up CT PET scan showed disease progression chemotherapy was discontinued and she was referred to radiation oncology for palliative radiation therapy. After this cycle of radiation therapy, she was started on lapatinib and Xeloda. She was tolerating it well but she was referred to radiation for C-spine metastases management. At that time her chemotherapy was put on hold. She developed right hip pain for which she received palliative radiation therapy to the 06/25/2017. The lapatinib and Xeloda was restarted but her follow-up tumor markers showed evidence of disease progression as the CA-27-29 gone up to 1346.70 on 08/20/2017 compared to 896.45 on 07/04/2017. Her chemotherapy with Xeloda and lapatinib was discontinued and decided to switch her to weekly Herceptin and Taxane , patient doesn't want take steroids so we recommended Herceptin and Abraxane combination. She did develop nausea vomiting abdominal pain with her last dose of Zometa and doesn't want to take Zometa anymore. We will switch her to Xgeva. There was delay in getting started with the Herceptin/Abraxane. She apparently had positive TB test which required workup and eventually was found to be a false positive. She began her first cycle of Herceptin and Abraxane on 10/09/2017.Last dose of Abraxane/Herceptin was given on 12/17/2017 and because of intolerance Abraxane was discontinued and last dose of Herceptin was given on 12/31/2017 Mrs Santamaria was seen by Dr. Ramirez, oncologist at [facility], for clinical trial and many clinical trials available but due to transportation and financial reasons, patient could not consider any of them. Palliative chemotherapy with carboplatin/gemcitabine/Herceptin or eribulin /Herceptin was recommended. Patient had bone scan and CT scan of chest abdomen done at [facility] which showed widespread metastatic disease. She began chemotherapy with weekly carboplatin, gemcitabine and trastuzumab on 04/15/2018 Follow-up CT PET scan done on 07/05/2018 showed improvement in hepatic metastatic disease since April 2017 study Mixed response to multiple bilateral pulmonary lesion Reactive marrow with splenic activity Osseous metastatic disease seen on April 2017 study is sclerotic and FDG negative Mrs Santamaria was admitted to hospital with abdominal pain and diagnosed with diverticulitis treated successfully with antibiotics and during this time, CT scans of chest abdomen pelvis were done on 07/30/2018 . The scans showed extensive pulmonary metastases and hepatic metastases and bone metastases, stable when compared with CT PET scan done in June 2018. She continued with treatment with carboplatin/gemcitabine/Herceptin. Follow-up CT PET scan done on 10/25/2018 showed mild improvement in hepatic, pulmonary and osseous metastatic disease. She has continued with chemotherapy with weekly Carboplatin, gemcitabine and Herceptin. She is receiving Neupogen support on and Saturday after her treatment on Saturday. She was getting the Neupogen at [place], [place]. She tolerated this plan well. She continues to have exertional shortness of breath but states it is no worse than what is has been but it is no better either. She denies any angina type pain but thinks she may have palpatations once in a while with the shortness of breath. She denies orthopnea. She denies any cough. She does have a very strong family history of CAD-both parents with her father's first NH in his 30's and both brothers have CAD. She has never had a diagnosis of CAD. She did have an echocardiogram on 11/07/2018 that reported EF of 60%-unchanged from previous echo. She reported she had a bug bite on her right breast reconstruction site around where the nipple should be. She states it presented as a big blister then it popped and then formed a scabbed area but no drainage. She had been applying triple antibotic ointment to it. She was referred to plastic surgery at [facility] and ulimately underwent right breast implant removal in December 2018, as per patient and there was no evidence of breast cancer in the specimen. Her chemotherapy was delayed because of dental procedure from 12/30/2018 to 02/04/2019. She resumed treatment on 02/04/2019. Echocardiogram done on 03/09/2019 showed Ejection fraction was 68%. Mrs Santamaria underwent restaging PET/Ct on 04/21/2019. The PET/CT apparently was not compared to the scan she had on 10/25/2018. A review/comparison and an addended report has been requested. However in the interim we discussed the findings of her April 21, 2019 PET in relation to the October 25, 2018 PET. There were multiple pulmonary nodules present with the largest at the right base posteromedially measuring 4.9 x 2 point centimeters with a maximum SUV of 6.71. The results of that SUV on the October 25, 2018 report is somewhat blurry but looks to be 8.4 possibly 6.4 but indicates that the pulmonary nodules are relatively stable. The maximum SUV in the liver was 3.31 and on the October 2018 scan was 5.1. did compare the reports and felt that Soledad had had some improvement in her overall disease. We of course are waiting for the final review and updated report. These findings have been discussed with Mrs Santamaria she understands that it will be compared with the one in October. She has had persistent right arm numbness and has an appointment with Dr Matthew soto for followup on that. She now has noticed right leg numbness. It comes and goes but seems to be lasting longer when it does come. She has had no TIA symptoms. MRI scan of the head done on 05/07/2019 showed no evidence of brain metastases. Due to hyperintense enhancing 9 x 6 mm intrapituitary lesion in the left aspect of pitiutary. Normal optic chasm. Slight [id number] mass effect on the infundibulum. Consistent with a pituitary adenoma. 10 mm metastatic C2 vertebral body lesions likely previously treated. She has continued with carboplatin, gemcitabine and Herceptin. She is also getting monthly Xgeva. Echocardiogram done on November 07, 2018 showed ejection fraction around 65% and appears unchanged from before Echocardiogram done on September 24, 2019 showed ejection fraction 55 -60% CT PET scan done on October 14, 2019 showed increasing metabolism of existing pulmonary nodules e.g. dominant pulmonary nodule within the medial right lower lobe with SUV of 8.3 compared to 6.7 in April 2019 and medial left lower lobe nodule is 1.4 x 1.3 cm with SUV 7 compared to 1.1 x 4 cm with SUV of 2.3 but no new lung nodule In abdomen increase in size of dominant cyst within central portion of liver measuring 6.7 x 5.1 with SUV of 8.1 compared to 4.8 by with SUV of 6 there is a new hypermetabolic lesion within the right lower lobe of the liver, size 0.9 cm with maximum SUV 6 increasing hypermetabolic activity in the existing osseous metastasis without new lesion identified e.g. in the sacrum SUV 6.9 compared to 4.6 previously. Due to the disease progression,she was recommended further treatment with Enhertu (fam-trastuzumab deruxtecan) an anti-HER2; monoclonal antibody; antineoplastic agent, topoisomerase I inhibitor. She began her first cycle on 11/05/2019. .Follow-up CT PET scan done after 5 doses of Enhertu on February 16, 2020 showed good response lung, liver and osseous lesion have all improved, new scattered lung and mediastinal findings may reflect inflammatory changes only. The frequency of her treatment was prolonged to 4 weeks instead of 3 weeks due to performance status and Mrs Santamaria states she is doing better with the longer cycles. Follow-up CT PET scan done on July 08, 2020 showed unchanged thoracic adenopathy, existing pleural pulmonary metastatic lesions have shown overall significant decrease in size and FDG uptake. Development of new area of hypermetabolic airspace opacity within left upper lobe likely representing inflammation or infection. Existing hypermetabolic hepatic metastatic disease have shown complete resolution without residual FDG uptake. Unchanged hypermetabolic osteoblastic osseous metastatic disease involving left iliac bone, upper sacrum, L3 vertebra. Mrs Santamaria was continues therapy with Enhertu. She is due for cycle 12 today. She continues to have persitent fatigue, but states it is no worse than what it has been. She has also had some intermittent muscle pain in her upper legs. She states she has had a headache for a couple of days after the last treatment but Excedrin Migraine did help and eventually resolve it. She states she is no longer taking stomach pills that she is taking herbal supplements. She states she continues to have left hip pain but is controlled with half Percocet. She states that she is not interested in radiation therapy or further treatment at this time. She denies any fever or chills. She has had no mouth sores, sore throat or difficulty swallowing. She denies any new shortness of breath orthopnea. She denies any chest pain or palpitations. She did have follow-up echocardiogram on 07/22/2020 which reports a ejection fraction of 66% with no regional wall motion abnormalities. She has mild to moderate tricuspid valve regurgitation but this is unchanged compared to her 09/24/2019 study. She has had no obvious signs of disease progression. Her ECOG is 1. Past Medical History: Cancer (breast (left)) in 2008 Past Surgical History: Cholecystectomy Colonoscopy Hysterectomy Nisson wrap Right breast implant removed Tonsillectomy Flu vacc in 2019 Flu vaccine in 2018 - Given in right deltoid/lc Flucevax in 2017 - right deltoid Portacatheter in 2016 Mastectomy in 2008 - bilateral October of 2015. She had an unknown rupture and repair Allergies: Codeine Sulfate Medications: Claritin 1 Tablet (of 10 mg) Oral daily Magnesium 1 Tablet Oral daily PRN Multivitamin Adults 1 Tablet Oral daily PRN Potassium 1 Tablet (of 99 mg) Oral daily PRN Vitamin C 1 Tablet Oral daily PRN Family History: Ms. Santamaria's mother at age 89: heart attack. Ms. Santamaria's father is alive. Social History: Ms. Santamaria is and she is a disabled. Ms. Santamaria quit smoking 14 years ago but had smoked 1.0 pack/day for 33 years. Ms. Santamaria reports the following support systems: lives with spouse, significant other, family, or friends, lives in own house, supportive family/friends willing to assist with needs, and adequate transportation available for expected visits. Her diet consists of regular meals. She indicates her activity level as: daily activities. Review Of Symptoms: <See Above> Vital Signs: Performed on Aug 15, 2020 16:23 Height - 67.00 in Temperature - 97.1 F (LOW) Pulse - 78 /min Respiration - 18 /min BP - 128/72 mm(hg) O2 Sat - 97 % Performed on Aug 15, 2020 14:12 Height - 67.00 in Weight - 138.8 lbs (HIGH) BSA - 1.73 sq.m BMI - 21.74 Temperature - 96.8 F (LOW) Pulse - 77 /min Respiration - 17 /min BP - 128/92 mm(hg) O2 Sat - 93 % (LOW) Pain - 0,1 - No physically strenuous activity, but ambulatory and able to carry out light or sedentary work (e.g. office work, light house work). (ECOG) Physical Examination: Constitutional Alert, oriented, no acute distress. Skin pink, warm and dry. Head Normocephalic; atraumatic. Eyes Conjunctivae and sclerae are clear and without icterus. Pupils are reactive and equal. ENMT No mouth sores or yeast. Hematologic/Lymphatic No petechiae or purpura. Respiratory Lungs are diminished bilaterally to auscultation without rhonchi or wheezing. Cardiovascular Regular rate and rhythm of heart without murmurs,clicks, gallops or rubs. Back/Spine Non-tender to palpation. Extremities No visible deformities, no cyanosis, clubbing or edema. Musculoskeletal No tenderness or swelling, normal range of motion without obvious weakness. Integumentary No rashes or lesions. Neurologic No sensory or motor deficits, normal cerebellar function, normal gait. Psychiatric Alert and oriented times three. Coherent speech. Verbalizes understanding of our discussions today. Laboratory:Test performed on Aug 15, 2020 12:10 Sodium 141 mmol/L TSH 2.81 uIU/mL Vitamin D (25-Hydroxy), Total 54 ng/mL Potassium 3.6 mmol/L Chloride 104 mmol/L CO2 26 mmol/L Anion Gap 14.6 BUN 13 mg/dL Creatinine 0.6 mg/dL Cr Clearance (Est) 101.7100 mL/min eGFR 101.0 mL/min Glucose 65 mg/dL Osmolality - Calculated 290 mOsm/kg Calcium 9.0 mg/dL Protein, Total 6.7 g/dL Albumin 3.6 g/dL Globulin 3.1 g/dL Bilirubin, Total 0.4 mg/dL ALT (SGPT) 32 U/L AST (SGOT) 45 U/L Alkaline Phosphatase 302 IU/L WBC 5.6 10 3/uL RBC 3.35 10 6/uL HGB 11.7 g/dL HCT 35.4 % MCV 105.7 fL MCH 34.9 pg MCHC 33.1 g/dL RDW 15.1 % Platelet Count 343 10 3/cmm MPV 9.3 fL Neutrophils 1.79 10 3/uL Lymphocytes 2.3 10 3/uL Monocytes 1.0 10 3/uL Eosinophils 0.4 10 3/uL Basophils 0.1 10 3/uL Neutrophil % 32.3 % Lymphocyte % 41.1 % Monocyte % 18.4 % Eosinophil % 6.8 % Basophils % 0.9 % NRBC % 0 % Impression: History of left breast cancer with metastases to left scapula status post bilateral mastectomy and left axillary lymph node dissection followed by radiation therapy to left chest wall and axilla in [address] [facility] in [facility] status post 1 year of Herceptin and paclitaxel and Arimidex for some time status post radiation therapy to left scapula biopsy-proven metastases Medical record obtained from [facility] [place], [place] and ER/OH positive HER-2/oneida overexpression positive it shows #1 presentation with abnormal screening mammogram in 2010. Patient underwent neoadjuvant chemotherapy with weekly paclitaxel and Herceptin for 12 cycle from May Treated with neoadjuvant chemotherapy FEC plus Herceptin from August 2010 through October 2010 In November 2010 she undergoes bilateral simple mastectomy with pathology demonstrating pT2 N2 disease Mrs Santamaria completed 1 year of adjuvant Herceptin therapy with adjuvant aromatase inhibitor In October 2011 patient transitioned to single agent tamoxifen due to poor tolerance of aromatase inhibitor therapy In October 2012 patient presented with left scapular pain imaging demonstrates abnormal bones lesion with biopsy notable for ER/OH positive HER-2/oneida overexpressing breast cancer, staging evaluation demonstrated bilateral pulmonary nodules with mediastinal lymphadenopathy On 12/16/2012 patient initiates letrozole plus Herceptin plus PERJETA on clinical trial On 02/22/2015 patient demonstrates subjective progression of disease within lungs On 02/25/2015 initiated on KADCYLA History of metastatic disease status post chemotherapy with different agents on multiple occasions most recent hormonal agent was letrozole 2.5 mg Elevated tumor markers [place] [address] scan of chest abdomen pelvis done on 10/10/2016 showed multiple bilateral pulmonary nodules consistent with metastatic disease multiple lytic lesion including posterior aspect of T12 vertebral body related dissection of much of right side of T10 vertebra and a large lytic lesion involving the roof of the right acetabulum and right iliac wing and focus of due to dissection lesion in right ischium Stable tiny low-attenuation abnormalities within the liver most likely consistent with multiple tiny cysts Pulmonary emphysema 8 ON 09/24/2016 CA 15.3 342.6 CA 27- 29 493.59 Upper mid back pain and right hip pain due to bone metastases questionable cord compression. She did have restaging with PET/CT on 11/03/2016. The PET/CT revealed multiple FGD avid osteolytic metastases in the left scapula, posterior left 9th rib, T10, T12 and the anterior right acetabulum. Multiple FDG avid metastatic pulmonary nodules represented by 1.9 cm nodule in the posterbasal segment of the right lower lobe with an SUV of 5 and a 1.7 cm nodule in the anterrobasal segment of the left lower lobe with an SUV of 5.1. No hepatic or adrenal metastases identified. Mrs Santamaria was referred to [facility] radiation oncology and underwent radiation to the right hip, left scapula, T10-T12 spine. Her pain resolved with the radiation. offered her palliative chemotherapy with Navelbine and Herceptin. She has agreed to a trial of the chemotherapy. CT scan of the chest August 2017 reported disease progression in the chest and evidence of possible hepatic involvement as well as possible metastatic site involving the left 12th rib. PET/CT scan done on 03/02/2017 showed multiple FDG avid metastatic pulmonary nodules represented by 1.9 cm nodule in the posterior basal segment of right lower lobe with SUV 9.6 compared to 5 on prior exam and a 1.7 cm nodule in the anterior basal segment of left lower lobe with SUV of 4.9 compared to 4.1 on prior exam. There were multiple new hepatic metastatic lesions represented by 1.7 cm nodule with SUV of 5.4 in the anterior superior segment right upper lobe. The PET/CT also reported bone metastasis the left anterior superior iliac spine posteriorly right sacroiliac and T10 T12 right acetabulum, left scapula and posterior left eighth rib. MRI scan of C-spine done on 02/28/2017 showed metastatic lesion of C2 vertebral body. Additional foci of metastatic disease may involve C6 and T1 vertebral bodies multiple disc bulging and spondylosis at C5/C6 and C6/C7 with mild anterior impingement Episode of rectal bleed/abdominal pain probably due to diverticulitis/diverticular bleed CT scan of chest abdomen pelvis done on 03/31/2017 showed pulmonary metastatic disease with variable size of some of the lesion since 10/30/2016 some lesions are smaller and other are larger hepatic and bone metastatic disease similar to the prior exam CT PET scan done on 04/27/2017 showed osseous lesion in left half of C1, and right T1 transverse process and left T1 pedicle, the L1 vertebral body, and L2 vertebral body shows no changes. However, pelvic metastatic disease has worsened with SUV 8.2 compared to 4.1 previously but she is status post radiation therapy to her pelvic bones., Multifocal hepatic metastatic disease is progressed , with SUV 9.8 compared to 5.4 earlier, bilateral hypermetabolic pulmonary nodules are unchanged and right hilar malignant node demonstrated progression Started on lapatinib and Xeloda on 06/08/2017 then it was placed on hold due to radiation therapy to left hip pain. Left posterior hip pain due to bone metastases status post radiation to right hip. Status post radiation therapy to C-spine could complete 9 out of 12 recommended doses because of severe radiation-induced pharyngitis , finished on 06/25/2017 Status palliative post radiation to hip, finished on 06/26/2007 Tumor marker CA-27-29 gone up to 1346.70 on 08/20/2017 from 896.45 on 07/04/2017 Lapatinib and Xeloda discontinued on 08/26/2017 and her treatment plan changed to weekly Herceptin and Taxane 3 weeks on and 1 week off with followup PET/CT after the third cycle. She had GI issues with Zometa ( an episode of nausea vomiting and abdominal pain) so she refuses to repeat the Zometa. She will be offered Xgeva 120 mg every month instead of the Zometa. She began her first cycle of Abraxane and Herceptin on 10/09/2017.Till 12/17/2017 at that time Abraxane was discontinued because of intolerance and last dose of Herceptin was given on 12/31/2017 and because of progressive weakness and fatigue this was also discontinued Patient was referred to [facility] she was seen by Dr. Ramirez on 03/31/2018, many clinical trials are available but due to transportation and financial reason patient could not consider any of them. So palliative chemotherapy with erbulin /Herceptin or carboplatin/gemcitabine/Herceptin was recommended. She did discontinue letrozole on 04/07/2018 and it was recommended that she start on weekly carboplatin AUC 2/gemcitabine 1000 mg/m2/Herceptin day 1, 8 and 15 every 28 days. Along with monthly Xgeva. She began her first cycle on 04/15/2018 .Follow-up CT PET scan done on 07/05/2018 showed hepatic metastatic disease has improved when compared with CT PET scan done in April 2017 and index lesion in the right hepatic dome has now significant central necrosis. There was a mixed response to multiple lung nodules, a left upper lobe nodules is unchanged in size at 1.6 cm but has SUV 3.8 compared to 5.6 before similar improvement is present in the posterior right lower lobe nodule and left lung base nodules. However there are new lesions in the right middle and medial right lobes, the 2 new lesions in the medial right lobe have SUV of 289 and right middle lobe measures 2.6 cm with SUV of 6.8. Multiple osseous lesion seen previously were sclerotic and FDG negative. Suspicious uptake is identified in left femoral neck and proximal right femur and L2. Mrs Santamaria continues with Carboplatin, gemcitabine and Herceptin and monthly Xgeva. She does require intermittent support with growth factors to keep her blood counts up in order to stay on the treatment plan. Follow-up CT PET scan done on 10/25/2018 showed multiple hepatic lesions are seen on prior studies on 07/05/2018 or minimally improved in size and now with improved SUV. Mild improvement in bilateral lung nodules both in size and SUV. Mild improvement is noted in multifocal osseous metastatic disease. Follow-up echocardiogram done on 11/07/2018 showed ejection fraction around 60%. She continued with weekly Carboplatin/gemcitabine and Herceptin. She has completed 11 full cycles and had restaging imaging on 04/21/2019. She had a PET/CT at [facility] on 04/21/2019. The PET/CT apparently was not compared to the scan she had on 10/25/2018. A review/comparison and an addended report has been requested. However in the interim we discussed the findings of her April 21, 2019 PET in relation to the October 25, 2018 PET. There were multiple pulmonary nodules present with the largest at the right base posteromedially measuring 4.9 x 2 point centimeters with a maximum SUV of 6.71. The results of that SUV on the October 25, 2018 report is somewhat blurry but looks to be 8.4 possibly 6.4 but indicates that the pulmonary nodules are relatively stable. The maximum SUV in the liver was 3.31 and on the October 2018 scan was 5.1. did compare the reports and felt that Soledad had had some improvement in her overall disease. She continued with chemotherapy with carboplatin gemcitabine and Herceptin. As her recent PET scan confirms disease progression she will discontinue her current chemo regimen with Herceptin/carboplatin/gemcitabine and prior approval was requested for Fam Trastuzumab deruxtecan (Enhertu). Dr Pitts had discussed the side effects possible benefits associated with Enhertu including but not limited to allergic reaction, nausea vomiting, fatigue, hair loss,, pneumonitis, neuropathy, bone marrow suppression amongst others. Mrs Santamaria has consented to treatment and we do have approval from insurance. BREAST CANCER TREATMENT HISTORY SUMMARY Paclitaxel Herceptin for 12 cycles from May 2010 to August 2010 [facility]EC and Herceptin through October 2010 Aromatase inhibitor began in October 2010 Bilateral mastectomies November 2010???postmastectomy radiation completed 03/21/2011 Tamoxifen 2013 Clinical trial with Herceptin, Perjeta and letrozole beginning November 2012 through February 2015 Kadcyla began in February 2015 but was stopped after 2-3 doses due to intolerance Radiation to the right hip, left scapula, T10-T12 spine in October 2016. She is also started on lapatinib and Xeloda which continued through August 2017. She had elevation of tumor markers and at that time was switched to Herceptin and Abraxane on 10/09/2017. She stopped the Abraxane after her last dose on 12/17/2017 because of intolerance and Herceptin was then given on 12/31/2017. She was referred to [facility] for possible clinical trials but due to transportation and financial reasons she could not consider any of them. She began palliative chemotherapy with carboplatin gemcitabine and trastuzumab on 04/15/2018. She was also getting monthly Xgeva. She is remained on this regimen until her most recent PET/CT from October 2019 which is show disease progression. She will be transitioned to Enhertu (11/05/2019). Plan/Problems Addressed at this Visit: PROBLEMS ADDRESSED TODAY 1. Metastatic breast cancer A. Proceed with cycle 12 Enhertu. B. Today's labs reviewed in detail and discussed with Mr. Mrs. Santamaria and a copy was given to them. WBC 5.6, hemoglobin 11.7, platelets 1 43,000, ANC is 1800. Potassium 3.6 creatinine 0.6 LFTs are normal her alk phos is 302 which is chronically elevated for her. C. I did add a TSH to blood in lab as well as a vitamin D for evaluation of myalgia, fatigue. D. She is not due for denosumab today as her last dose was on July 27, 2020. E. Follow-up echo was obtained on 07/22/2020 which reported ejection fraction of 66% and no regional wall motion abnormalities. 2. Follow-up plan A. Follow-up plan will be to see her back in 4 weeks with CBC CMP she will be due for Xgeva and Enhertu at that time. B. She will need follow-up CBC CMP at that time. C. Mrs. Santamaria has been instructed to contact us in the interim should questions or problems arise. Signed By: Liliana Bernstein-, CNP Kortney Pitts MD <<Signature on File>>
== END 2020-08-17 23:59 | disposition home or self-care (01) ==
LOC: ONCMED 05:34
PROVIDERS: Internal Medicine Hematology & Oncology; PCP Nurse Practitioner Family; Visit Provider Nurse Practitioner
DX: Z51.12 Encounter for antineoplastic immunotherapy (principal); Z51.11 Encounter for antineoplastic chemotherapy; C50.512 Malignant neoplasm of lower-outer quadrant of left female breast; Z17.0 Estrogen receptor positive status [ER+]; C79.51 Secondary malignant neoplasm of bone; C78.01 Secondary malignant neoplasm of right lung; C78.02 Secondary malignant neoplasm of left lung; J43.9 Emphysema, unspecified; Z92.21 Personal history of antineoplastic chemotherapy; Z92.3 Personal history of irradiation; Z79.899 Other long term (current) drug therapy
CPT/HCPCS: 36415; 80053; 82306; 84443; 85025; 93306; 96367; 96372; 96375; 96413; 99215; J0897; J1100; J2405; J2469; J7050; J9358